=== PATIENT | male | born 1975 | race Caucasian/White ===

== ENCOUNTER 2016-06-06 10:58 | Inpatient (IN) | payer MEDICARE, OTHER ==
[~2016-06-06] VITALS: Ht 180.3 cm; Wt 78.0 kg
[~2016-06-06 10:58] MED LIST: ATIVAN2 MG/1 ML IM; CARBAMAZEPINE200 MG ORAL; FOLIC ACID1 MG ORAL; GABAPENTIN300 MG ORAL; GEODON40 MG ORAL; HYDROXYZINE HCL10 M1 PO; LEVETIRACETAM750 M1 ORAL; MORPHINE S10 MG/5 ML ORAL; MULTI VITAMIN1 EACH ORAL; NICODERM CQ1 EAC1 TD; QUETIAPINE FUM200 MG ORAL; TRAMADOL HCL50 MG ORAL; ZOLPIDEM TARTRAT5 MG ORAL
[2016-06-06] MEDS ORDERED: levETIRAcetam 500 MG in D5W 110 ML IV ONE (11:15)
[2016-06-06] MEDS ORDERED: levETIRAcetam 500mg vial IV ONE (12:06)
[2016-06-06] MEDS ORDERED: LORazepam Inj 2mg/ml 1ml ONE (12:09)
[2016-06-06 12:15] LABS: BASOPHILS % (AUTO) 1.3 % (0.0-2.0); EOSINOPHILS % (AUTO) 3.5 % (0.0-3.0); LYMPHOCYTES % (AUTO) 24.7 % (20.0-45.0); MEAN CORPUSCULAR HEMOGLOBIN 33.5 PG (27.0-31.0); MEAN CORPUSCULAR HGB CONC 34.3 G/DL (32.0-36.0); MEAN CORPUSCULAR VOLUME 98 FL (80-99); MEAN PLATELET VOLUME 8.3 FL (6.5-10.1); MONOCYTES % (AUTO) 6.3 % (1.0-10.0); NEUTROPHILS % (AUTO) 64.2 % (45.0-75.0); PLATELET COUNT 241 K/UL (150-450); RED BLOOD COUNT 4.72 M/UL (4.70-6.10); RED CELL DISTRIBUTION WIDTH 12.1 % (11.6-14.8)
[2016-06-06] MEDS ORDERED: LORazepam Inj 2mg/ml 1ml IV ONE (12:15)
[2016-06-06 12:25] LABS: ACETAMINOPHEN < 10 ug/mL (10-30); ALANINE AMINOTRANSFERASE 14 U/L (3-41); ALBUMIN/GLOBULIN RATIO 1.6 (1.0-2.7); ALCOHOL < 10 mg/dL; ANION GAP 14 (5-15); ASPARTATE AMINO TRANSFERASE 15 U/L (5-40); CALCIUM 9.1 mg/dL (8.6-10.2); CARBAMAZEPINE (TEGRETOL) 4.1 ug/mL (4.0-12.0); CARBON DIOXIDE 27 mEQ/L (20-30); CHLORIDE 100 mEQ/L (98-107); CREATININE 0.9 mg/dL (0.7-1.2); GLOMERULAR FILTRATION RATE > 60 mL/min (>60); HEMOLYSIS 13; POTASSIUM 4.1 mEQ/L (3.4-4.9); SODIUM 141 mEQ/L (135-145); TOTAL PROTEIN 6.7 g/dL (6.6-8.7); TROPONIN I < 0.30 ng/mL (<=0.30)
[2016-06-06 12:36] LABS: CKMB 1.6 ng/mL (< 6.7)
[2016-06-06 13:41] VITALS: BP 106/60
[2016-06-06] MEDS ORDERED: COLACE100 MG ORAL (13:56)
--- NOTE | 2016-06-06 13:59 | Diagnostic Imaging Report ---
Indications: Seizure, fall Technique: Continuous helical CT imaging of the brain was performed with automatic exposure control on a Siemens sensation [address] scanner. Axial and coronal images were reconstructed at 5 mm slice thickness and interval. CTDI volume(s): 70 mGy Total DLP: 1425 mGy-cm Findings: Comparison: None. Intracranial anatomy is unremarkable. No evidence of mass or hemorrhage, other attenuation abnormality, mass effect, midline shift, hydrocephalus or increased intracranial pressure. Bone window images are unremarkable. Mucoperiosteal thickening throughout paranasal sinuses. Remainder air cells opacified; left clear.. IMPRESSION: No evidence of acute injury or other acute intracranial pathology. Examination suboptimal for evaluation of first-time seizure. MRI of the brain without and with gadolinium, seizure protocol, recommended for more complete evaluation, as clinically indicated. Paranasal sinusitis. Right mastoid air cell opacification may be developmental and/or inflammatory The CT scanner at [facility] is accredited by the [employer] and the scans are performed using protocols designed to limit radiation exposure to as low as reasonably achievable to attain images of sufficient resolution adequate for diagnostic evaluation.
--- NOTE | 2016-06-06 14:32 | Emergency Room Report ---
History of Present Illness General Chief Complaint: Seizure Source: Patient, Medical Record, EMS Present Illness HPI 41-year-old male presents ED for evaluation. Per EMS patient has been having seizures at a convalescent home. Patient has history of seizures. Takes Keppra and carbamazepine. Patient states the medications are not helping. Patient states 2 days ago he fell because of the seizure and hit his knee. Complaining of right knee pain. dull, 7/10. Nonradiating. No other aggravating or relieving factors. Denies any other associated symptoms Allergies: Coded Allergies: DIVALPROEX SODIUM (Verified Allergy, Unknown, 04/13/16) Patient History Past Medical History: COPD, seizures Past Surgical History: none Pertinent Family History: none Social History: Denies: alcohol use, drug use, smoking Immunizations: UTD Reviewed Nursing Documentation: PMH: Agreed, PSxH: Agreed Nursing Documentation-PMH Past Medical History: No History, Except For Hx Cardiac Problems: No Hx COPD: Yes Hx Cancer: No Hx Gastrointestinal Problems: No Hx Neurological Problems: Yes Hx Seizures: Yes Hx Peripheral Neuropathy: Yes Hx Head Trauma: Yes Review of Systems All Other Systems: negative except mentioned in HPI Physical Exam Vital Signs Date Time Temp Pulse Resp B/P Pulse Ox O2 Delivery O2 Flow Rate FiO2 06/06/16 10:59 98.4 84 20 123/78 96 Room Air Sp02 EP Interpretation: reviewed, normal General Appearance: no apparent distress, alert, GCS 15, non-toxic Head: normocephalic, atraumatic Eyes: bilateral eye PERRL, bilateral eye normal inspection ENT: hearing grossly normal, normal pharynx, no angioedema, normal voice Neck: full range of motion, supple/symm/no masses Respiratory: chest non-tender, lungs clear, normal breath sounds, speaking full sentences Cardiovascular #1: regular rate, rhythm, no edema Cardiovascular #2: 2+ carotid (R), 2+ carotid (L), 2+ radial (R), 2+ radial (L) , 2+ dorsalis pedis (R), 2+ dorsalis pedis (L) Gastrointestinal: normal bowel sounds, non tender, soft, non-distended, no guarding, no rebound Rectal: deferred Genitourinary: normal inspection, no CVA tenderness Musculoskeletal: back normal, gait/station normal, normal range of motion, non- tender, tender - R knee Neurologic: alert, oriented x3, responsive, motor strength/tone normal, sensory intact, speech normal Psychiatric: judgement/insight normal, memory normal, mood/affect normal, no suicidal/homicidal ideation Reflexes: 3+ bicep (R), 3+ bicep (L), 3+ tricep (R), 3+ tricep (L), 3+ knee (R) , 3+ knee (L) Skin: normal color, no rash, warm/dry, well hydrated Lymphatic: no adenopathy Medical Decision Making Diagnostic Impression: Primary Impression: Epileptic seizure, generalized ER Course Hospital Course 41-year-old M presents to ED status post seizure. R knee pain s/p fall Differential diagnosis includes- breakthrough seizure, alcohol abuse, noncompliance with medication Clinical course Patient placed on stretcher. Initial history and physical I ordered labs, IV fluids, CT brain patient had another episode of seizure here. Given Ativan Right knee x-ray okay Labs-electrolytes okay, leukocytosis noted, hemoglobin/hematocrit stable. carbamezapine level normal CT Brain ok Given loading dose of Keppra. Case discussed with Dr. Frost and he agreed to accept the patient to his service for further care and support. i. I feel this is a highly complex case requiring extensive working including EKG/Rhythm strip, Xray/CT/US, Blood/urine lab work, repeat exams while in ED, and administration of strong opiates/narcotics for pain control, admission to hospital or close patient follow up. Diagnosis - seizure admitted to telemetry in serious condition Labs Test 06/06/16 12:00 White Blood Count 7.0 K/UL (4.8-10.8) Red Blood Count 4.72 M/UL (4.70-6.10) Hemoglobin 15.8 G/DL (14.2-18.0) Hematocrit 46.1 % (42.0-52.0) Mean Corpuscular Volume 98 FL (80-99) Mean Corpuscular Hemoglobin 33.5 PG (27.0-31.0) Mean Corpuscular Hemoglobin Concent 34.3 G/DL (32.0-36.0) Red Cell Distribution Width 12.1 % (11.6-14.8) Platelet Count 241 K/UL (150-450) Mean Platelet Volume 8.3 FL (6.5-10.1) Neutrophils (%) (Auto) 64.2 % (45.0-75.0) Lymphocytes (%) (Auto) 24.7 % (20.0-45.0) Monocytes (%) (Auto) 6.3 % (1.0-10.0) Eosinophils (%) (Auto) 3.5 % (0.0-3.0) Basophils (%) (Auto) 1.3 % (0.0-2.0) Sodium Level 141 mEQ/L (135-145) Potassium Level 4.1 mEQ/L (3.4-4.9) Chloride Level 100 mEQ/L (98-107) Carbon Dioxide Level 27 mEQ/L (20-30) Anion Gap 14 (5-15) Blood Urea Nitrogen 8 mg/dL (7-23) Creatinine 0.9 mg/dL (0.7-1.2) Estimat Glomerular Filtration Rate > 60 mL/min (>60) Glucose Level 92 mg/dL (74-106) Calcium Level 9.1 mg/dL (8.6-10.2) Total Bilirubin 0.2 mg/dL (0.0-1.2) Aspartate Amino Transf (AST/SGOT) 15 U/L (5-40) Alanine Aminotransferase (ALT/SGPT) 14 U/L (3-41) Alkaline Phosphatase 87 U/L (40-129) Total Creatine Kinase 72 U/L (38-174) Creatine Kinase MB 1.6 ng/mL (< 6.7) Creatine Kinase MB Relative Index 2.2 Troponin I < 0.30 ng/mL (<=0.30) Total Protein 6.7 g/dL (6.6-8.7) Albumin 4.2 g/dL (3.5-5.2) Globulin 2.5 g/dL Albumin/Globulin Ratio 1.6 (1.0-2.7) Salicylates Level < 1 mg/dL (10-30) Acetaminophen Level < 10 ug/mL (10-30) Carbamazepine (Tegretol) Level 4.1 ug/mL (4.0-12.0) Serum Alcohol < 10 mg/dL EKG Diagnostic Results Rate: normal Rhythm: NSR ST Segments: no acute changes ASA given to the pt in ED: No Rhythm Strip Diag. Results EP Interpretation: yes Rhythm: NSR, no PVC's, no ectopy Other X-Ray Diagnostic Results Other X-Ray Diagnostic Results : X-Ray Ordered: R knee EP Interpretation: Yes Findings: no fractures, no dislocation, no soft tissue swelling Number of Views: 3 CT/MRI/US Diagnostic Results CT/MRI/US Diagnostic Results : Imaging Test Ordered: CT head Impression no acute process Last Vital Signs Date Time Temp Pulse Resp B/P Pulse Ox O2 Delivery O2 Flow Rate FiO2 06/06/16 13:41 72 18 106/60 100 Room Air 06/06/16 10:59 98.4 Status: improved Disposition: ADMITTED INPATIENT Condition: Serious Referrals: JUAN FROST (PCP) MAGNOLIA DAO M.D. Jun 06, 2016 14:32
[2016-06-06] MEDS ORDERED: LAMICTAL100 MG ORAL (14:38)
--- NOTE | 2016-06-06 14:39 | Diagnostic Imaging Report ---
Indications: Fall, right knee injury, pain Technique: 3 views right knee. Findings: Comparison: None No fracture, dislocation, joint space widening or effusion , surrounding soft tissue swelling/foreign body/other abnormality, or other acute changes are identified. IMPRESSION: No evidence of acute injury to the right knee.
[2016-06-06] MEDS ORDERED: LEVETIRACETAM500 MG ORAL (15:09)
[2016-06-06] MEDS ORDERED: POLYETHYLENE GL17 GM ORAL (15:11)
[2016-06-06] MEDS ORDERED: MILK OF MA2400 MG/10 ORAL (15:11)
[2016-06-06] MEDS ORDERED: ACETAMINOP160 MG/55 ORAL (15:12)
[2016-06-06] MEDS ORDERED: VENTOLIN HFA18 GM INH (15:13)
--- NOTE | 2016-06-06 15:23 | Consultation ---
History of Present Illness General Date patient seen: Jun 06, 2016 Chief Complaint: Seizure Present Illness Allergies: Coded Allergies: DIVALPROEX SODIUM (Verified Allergy, Unknown, 04/13/16) Medication History Scheduled Carbamazepine* (Carbamazepine*), 300 MG ORAL EVERY 8 HOURS, (Reported) Docusate Sodium* (Colace*), 100 MG ORAL DAILY, (Reported) Folic Acid* (Folic Acid*), 1 MG ORAL DAILY, (Reported) Gabapentin* (Gabapentin*), 300 MG ORAL EVERY 8 HOURS, (Reported) Lamotrigine* (Lamictal*), 50 MG ORAL BID, (Reported) Levetiracetam (Levetiracetam), 750 MG ORAL BID, (Reported) Levetiracetam* (Levetiracetam*), 1,500 MG ORAL TWICE A DAY, (Reported) Lorazepam* (Ativan*), 1 MG IM Q6HR, (Reported) Multivitamin (Multi Vitamin Daily), 1 TAB ORAL DAILY, (Reported) Nicotine 14MG Patch* (Nicoderm Cq 14MG*), 1 EACH TD DAILY, (Reported) Quetiapine Fumarate* (Seroquel*), 200 MG ORAL EVERY 8 HOURS, (Reported) Ziprasidone Hcl* (Geodon*), 80 MG ORAL TWICE A DAY, (Reported) Scheduled PRN Acetaminophen* (Acetaminophen*), 27 MG ORAL Q4HR PRN for For Pain, (Reported) Albuterol Sulfate (Ventolin Hfa), 2 PUFFS INH EVERY 6 HOURS PRN for Shortness of Breath, (Reported) Hydroxyzine Hcl (Hydroxyzine Hcl), 10 MG PO EVERY 8 HOURS PRN for Itching, ( Reported) Magnesium Hydroxide* (Milk Of Magnesia*), 30 ML ORAL DAILY PRN for Constipation, (Reported) Morphine Sulfate* (Morphine Sulfate*), 15 MG ORAL EVERY 12 HOURS PRN for For Pain, (Reported) Polyethylene Glycol 3350* (Polyethylene Glycol 3350*), 17 GM ORAL BEDTIME PRN for Constipation, (Reported) Tramadol Hcl* (Ultram*), 50 MG ORAL Q6H PRN for For Pain, (Reported) Zolpidem Tartrate* (Zolpidem Tartrate*), 5 MG ORAL BEDTIME PRN for Insomnia, ( Reported) Patient History Healthcare decision maker Resuscitation status Advanced Directive on File Physical Exam Last 24 Hour Vital Signs Date Time Temp Pulse Resp B/P Pulse Ox O2 Delivery O2 Flow Rate FiO2 06/06/16 13:41 72 18 106/60 100 Room Air 06/06/16 11:30 84 20 Room Air 06/06/16 10:59 98.4 84 20 123/78 96 Room Air Laboratory Tests Test 06/06/16 12:00 White Blood Count 7.0 K/UL (4.8-10.8) Red Blood Count 4.72 M/UL (4.70-6.10) Hemoglobin 15.8 G/DL (14.2-18.0) Hematocrit 46.1 % (42.0-52.0) Mean Corpuscular Volume 98 FL (80-99) Mean Corpuscular Hemoglobin 33.5 PG (27.0-31.0) H Mean Corpuscular Hemoglobin Concent 34.3 G/DL (32.0-36.0) Red Cell Distribution Width 12.1 % (11.6-14.8) Platelet Count 241 K/UL (150-450) Mean Platelet Volume 8.3 FL (6.5-10.1) Neutrophils (%) (Auto) 64.2 % (45.0-75.0) Lymphocytes (%) (Auto) 24.7 % (20.0-45.0) Monocytes (%) (Auto) 6.3 % (1.0-10.0) Eosinophils (%) (Auto) 3.5 % (0.0-3.0) H Basophils (%) (Auto) 1.3 % (0.0-2.0) Sodium Level 141 mEQ/L (135-145) Potassium Level 4.1 mEQ/L (3.4-4.9) Chloride Level 100 mEQ/L (98-107) Carbon Dioxide Level 27 mEQ/L (20-30) Anion Gap 14 (5-15) Blood Urea Nitrogen 8 mg/dL (7-23) Creatinine 0.9 mg/dL (0.7-1.2) Estimat Glomerular Filtration Rate > 60 mL/min (>60) Glucose Level 92 mg/dL (74-106) Calcium Level 9.1 mg/dL (8.6-10.2) Total Bilirubin 0.2 mg/dL (0.0-1.2) Aspartate Amino Transf (AST/SGOT) 15 U/L (5-40) Alanine Aminotransferase (ALT/SGPT) 14 U/L (3-41) Alkaline Phosphatase 87 U/L (40-129) Total Creatine Kinase 72 U/L (38-174) Creatine Kinase MB 1.6 ng/mL (< 6.7) Creatine Kinase MB Relative Index 2.2 Troponin I < 0.30 ng/mL (<=0.30) Total Protein 6.7 g/dL (6.6-8.7) Albumin 4.2 g/dL (3.5-5.2) Globulin 2.5 g/dL Albumin/Globulin Ratio 1.6 (1.0-2.7) Salicylates Level < 1 mg/dL (10-30) L Acetaminophen Level < 10 ug/mL (10-30) L Carbamazepine (Tegretol) Level 4.1 ug/mL (4.0-12.0) Serum Alcohol < 10 mg/dL Height (Feet): 5 Height (Inches): 11.00 Weight (Pounds): 172 Assessment/Plan Assessment/Plan (1) Paraplegia (2) Epilepsy (3) Neuropathic pain (4) Chronic pain syndrome (5) PTSD (6) Schizophrenia (7) Right knee sprain and pain Seen dictated EMMA AGUILAR Jun 06, 2016 15:23
[2016-06-06] MEDS ORDERED: Morphine IR 15mg tab ORAL PRN (15:30)
[2016-06-06] MEDS ORDERED: HYDROmorphone 1mg/ml Carpuject IVP PRN (15:30)
[2016-06-06 15:38] VITALS: BP 107/33
[2016-06-06 17:44] VITALS: BP 127/65
[2016-06-06 20:00] VITALS: BP 151/84
[2016-06-06] MEDS: MS Contin 15mg tab ORAL SCH (21:52)
[2016-06-06] MEDS ORDERED: Miralax 17gm pkt ORAL PRN (23:00)
[2016-06-06] MEDS ORDERED: traMADol 50mg tab ORAL PRN (23:00)
[2016-06-06] MEDS ORDERED: Zolpidem 5mg tab ORAL PRN (23:00)
[2016-06-06] MEDS ORDERED: Morphine Sulfate 2mg/ml Inj IVP PRN (23:00)
[2016-06-06] MEDS ORDERED: Mylanta II UD 30ml ORAL PRN (23:00)
[2016-06-06] MEDS: LORazepam Inj 2mg/ml 1ml IV PRN (23:10)
--- NOTE | 2016-06-06 23:48 | Consultation ---
History of Present Illness General Date patient seen: Jun 06, 2016 Chief Complaint: Cough and shortness of breath intractable seizure Reason for Consultation: Dr Gavin Present Illness HPI 41 yo gentleman with pmhx seizure disorder and chronic obstructive pulmonary disease, alcoholism, tobacco smoke use presents to [facility] ER with complaint of intractable seizure. Upon examination the patients breathing is labored and there is a noticeable wheeze appreciated without need of a stethoscope. Patient is lethargic and disoriented, the history obtained from emergency room doctor and the patients' hospitalist. While being evaluated for intractable seizure apparently the patient exhibited symptoms and signs of breathing difficulty and profouse coughing. I was asked to consult on this case and evaluate the patients lung function in the context of prior existing lung disease and respiratory related symptoms of cough and breathing abnormalities. Preliminary chest x ray is negative for acute infiltrate or effusion, consolidation may not be appreciated in a hypovolemic status. Supplemental oxygen, aspiration precautions and breathing treatments will be provided to improve respiratory status. Neurologist has been requested to provide stronger anti-convulsant therapy Patient is admitted to hospital for close evaluation, therapeutic blood levels of anti-convulsant is being examined at this time. Will obtain a follow up chest xray if respiratory status declines further, will reassess breathing and lung function daily. Allergies: Coded Allergies: DIVALPROEX SODIUM (Verified Allergy, Unknown, 04/13/16) Medication History Scheduled Carbamazepine* (Carbamazepine*), 300 MG ORAL EVERY 8 HOURS, (Reported) Docusate Sodium* (Colace*), 100 MG ORAL DAILY, (Reported) Folic Acid* (Folic Acid*), 1 MG ORAL DAILY, (Reported) Gabapentin* (Gabapentin*), 300 MG ORAL EVERY 8 HOURS, (Reported) Lamotrigine* (Lamictal*), 50 MG ORAL BID, (Reported) Levetiracetam (Levetiracetam), 750 MG ORAL BID, (Reported) Levetiracetam* (Levetiracetam*), 1,500 MG ORAL TWICE A DAY, (Reported) Lorazepam* (Ativan*), 1 MG IM Q6HR, (Reported) Multivitamin (Multi Vitamin Daily), 1 TAB ORAL DAILY, (Reported) Nicotine 14MG Patch* (Nicoderm Cq 14MG*), 1 EACH TD DAILY, (Reported) Quetiapine Fumarate* (Seroquel*), 200 MG ORAL EVERY 8 HOURS, (Reported) Ziprasidone Hcl* (Geodon*), 80 MG ORAL TWICE A DAY, (Reported) Scheduled PRN Acetaminophen* (Acetaminophen*), 27 MG ORAL Q4HR PRN for For Pain, (Reported) Albuterol Sulfate (Ventolin Hfa), 2 PUFFS INH EVERY 6 HOURS PRN for Shortness of Breath, (Reported) Hydroxyzine Hcl (Hydroxyzine Hcl), 10 MG PO EVERY 8 HOURS PRN for Itching, ( Reported) Magnesium Hydroxide* (Milk Of Magnesia*), 30 ML ORAL DAILY PRN for Constipation, (Reported) Morphine Sulfate* (Morphine Sulfate*), 15 MG ORAL EVERY 12 HOURS PRN for For Pain, (Reported) Polyethylene Glycol 3350* (Polyethylene Glycol 3350*), 17 GM ORAL BEDTIME PRN for Constipation, (Reported) Tramadol Hcl* (Ultram*), 50 MG ORAL Q6H PRN for For Pain, (Reported) Zolpidem Tartrate* (Zolpidem Tartrate*), 5 MG ORAL BEDTIME PRN for Insomnia, ( Reported) Patient History Healthcare decision maker Resuscitation status Advanced Directive on File Past Medical/Surgical History Past Medical/Surgical History: (1) Choreoathetosis (2) posttraumatc seizure disorder, exacerbation (3) Aspiration pneumonia (4) Hypoxia (5) ETOH abuse (6) Epilepsia (7) SOB (shortness of breath) (8) HTN (hypertension) (9) Chronic pain (10) Recurrent knee pain (11) Uncontrolled seizures (12) chronic pain syndrom with drug seeking behavior (13) 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 (15) Psychiatric disorder (16) COPD (chronic obstructive pulmonary disease) (17) Tachycardia Review of Systems Constitutional: Reports: malaise, weakness Respiratory: Reports: cough, shortness of breath, wheezing Neurological: Reports: headache, seizure, tingling, tremors Physical Exam General Appearance: moderate distress Lines, tubes and drains: peripheral HEENT: normocephalic, atraumatic, anicteric, PERRL Neck: non-tender, normal alignment, supple Respiratory/Chest: chest wall non-tender, respiratory distress, accessory muscle use, expiratory wheezing Breasts: no masses Cardiovascular/Chest: normal peripheral pulses, normal rate, no JVD Abdomen: normal bowel sounds, non tender, soft, no organomegaly, no mass Genitourinary/Rectal: normal genital exam, normal rectal exam Extremities: normal range of motion, non-tender, normal inspection Skin Exam: normal pigmentation, warm/dry Neurologic: cook barbecue II-XII grossly normal, no motor/sensory deficits, responsive, disoriented Last 24 Hour Vital Signs Date Time Temp Pulse Resp B/P Pulse Ox O2 Delivery O2 Flow Rate FiO2 06/06/16 20:00 97.5 102 15 151/84 100 Room Air 06/06/16 20:00 82 06/06/16 18:26 97.6 72 15 127/65 95 Room Air 1.0 06/06/16 17:44 97.6 72 15 127/65 95 Room Air 06/06/16 15:38 97.1 89 20 107/33 100 Nasal Cannula 1.0 06/06/16 13:41 72 18 106/60 100 Room Air 06/06/16 11:30 84 20 Room Air 06/06/16 10:59 98.4 84 20 123/78 96 Room Air Laboratory Tests Test 06/06/16 12:00 White Blood Count 7.0 K/UL (4.8-10.8) Red Blood Count 4.72 M/UL (4.70-6.10) Hemoglobin 15.8 G/DL (14.2-18.0) Hematocrit 46.1 % (42.0-52.0) Mean Corpuscular Volume 98 FL (80-99) Mean Corpuscular Hemoglobin 33.5 PG (27.0-31.0) H Mean Corpuscular Hemoglobin Concent 34.3 G/DL (32.0-36.0) Red Cell Distribution Width 12.1 % (11.6-14.8) Platelet Count 241 K/UL (150-450) Mean Platelet Volume 8.3 FL (6.5-10.1) Neutrophils (%) (Auto) 64.2 % (45.0-75.0) Lymphocytes (%) (Auto) 24.7 % (20.0-45.0) Monocytes (%) (Auto) 6.3 % (1.0-10.0) Eosinophils (%) (Auto) 3.5 % (0.0-3.0) H Basophils (%) (Auto) 1.3 % (0.0-2.0) Sodium Level 141 mEQ/L (135-145) Potassium Level 4.1 mEQ/L (3.4-4.9) Chloride Level 100 mEQ/L (98-107) Carbon Dioxide Level 27 mEQ/L (20-30) Anion Gap 14 (5-15) Blood Urea Nitrogen 8 mg/dL (7-23) Creatinine 0.9 mg/dL (0.7-1.2) Estimat Glomerular Filtration Rate > 60 mL/min (>60) Glucose Level 92 mg/dL (74-106) Calcium Level 9.1 mg/dL (8.6-10.2) Total Bilirubin 0.2 mg/dL (0.0-1.2) Aspartate Amino Transf (AST/SGOT) 15 U/L (5-40) Alanine Aminotransferase (ALT/SGPT) 14 U/L (3-41) Alkaline Phosphatase 87 U/L (40-129) Total Creatine Kinase 72 U/L (38-174) Creatine Kinase MB 1.6 ng/mL (< 6.7) Creatine Kinase MB Relative Index 2.2 Troponin I < 0.30 ng/mL (<=0.30) Total Protein 6.7 g/dL (6.6-8.7) Albumin 4.2 g/dL (3.5-5.2) Globulin 2.5 g/dL Albumin/Globulin Ratio 1.6 (1.0-2.7) Salicylates Level < 1 mg/dL (10-30) L Acetaminophen Level < 10 ug/mL (10-30) L Carbamazepine (Tegretol) Level 4.1 ug/mL (4.0-12.0) Serum Alcohol < 10 mg/dL Height (Feet): 5 Height (Inches): 11.00 Weight (Pounds): 172 Medications Current Medications Medications (Trade) Dose Ordered Sig/Sharon Route PRN Reason Start Time Stop Time Status Last Admin Dose Admin Acetaminophen (Tylenol) 650 mg Q4H PRN ORAL fever 06/06/16 23:00 07/06/16 22:59 Al Hydroxide/Mg Hydroxide (Mylanta II) 30 ml Q6H PRN ORAL dyspepsia 06/06/16 23:00 07/06/16 22:59 Carbamazepine (TEGretol) 300 mg EVERY 8 HOURS ORAL 06/07/16 06:00 07/07/16 05:59 Dextrose (Dextrose 50%) STAT PRN IV Hypoglycemia 06/06/16 23:00 07/06/16 22:59 Folic Acid (Folate) 1 mg DAILY ORAL 06/07/16 09:00 07/07/16 08:59 Gabapentin (Neurontin) 300 mg EVERY 8 HOURS ORAL 06/07/16 06:00 07/07/16 05:59 Heparin Sodium (Porcine) (Heparin 5000 units/ml) 5,000 units EVERY 12 HOURS SUBQ 06/07/16 09:00 07/07/16 08:59 Hydromorphone HCl (Dilaudid) 1 mg Q4H PRN IVP severe pain 06/06/16 15:30 06/13/16 15:29 Lamotrigine (LaMICtal) 50 mg BID ORAL 06/07/16 09:00 07/07/16 08:59 Levetiracetam (Keppra) 1,500 mg TWICE A DAY ORAL 06/07/16 09:00 07/07/16 08:59 Lidocaine (Lidoderm 5% PATCH) 1 patch DAILY TDERMAL 06/07/16 09:00 07/07/16 08:59 Lorazepam (Ativan 2mg/ml 1ml) 2 mg EVERY HOUR PRN IV seizures 06/06/16 23:00 06/13/16 22:59 06/06/16 23:10 Morphine HCl (Morphine IR) 15 mg Q4H PRN ORAL moderate pain 06/06/16 15:30 06/13/16 15:29 Morphine Sulfate (MS Contin) 15 mg Q12HR ORAL 06/06/16 21:00 06/13/16 20:59 06/06/16 21:52 Morphine Sulfate (Morphine Sulfate) 1 mg EVERY 4 HOURS PRN IVP For Pain 06/06/16 23:00 06/13/16 22:59 Ondansetron HCl (Zofran) 4 mg Q6H PRN IVP Nausea & Vomiting 06/06/16 23:00 07/06/16 22:59 Polyethylene Glycol (Miralax) 17 gm HSPRN PRN ORAL Constipation 06/06/16 23:00 07/06/16 22:59 Quetiapine Fumarate (SEROquel) 200 mg EVERY 8 HOURS ORAL 06/07/16 06:00 07/07/16 05:59 Tramadol HCl (Ultram) 50 mg Q6H PRN ORAL For Pain 06/06/16 23:00 06/13/16 22:59 Zolpidem Tartrate (Ambien) 5 mg HSPRN PRN ORAL Insomnia 06/06/16 23:00 07/06/16 22:59 Assessment/Plan Problem List: (1) ETOH abuse ICD Codes: F10.10 - Alcohol abuse, uncomplicated SNOMED: 43735056, 49300966 (2) Epilepsia ICD Codes: G40.909 - Epilepsy, unspecified, not intractable, without status epilepticus SNOMED: 92976936 (3) Epileptic seizure, generalized ICD Codes: G40.309 - Generalized idiopathic epilepsy and epileptic syndromes, not intractable, without status epilepticus SNOMED: 60285324 (4) Hypoxia ICD Codes: R09.02 - Hypoxemia SNOMED: 475594016, 66242620 Status: stable, progressing Assessment/Plan Supplemental Oxygen high flow Maintain pulse oximetry oxygenation above 92 percent Aspiration precautions Breathing Tx albuterol / atrovent UD as needed for SOB q 6 hours. CXR repeated if lung status doesn't improve. Will monitor CBC and BMP, initiate antbx if sputum increases. JJ YUNG Jun 06, 2016 23:48
--- NOTE | 2016-06-06 23:57 | History and Physical Report ---
DATE OF ADMISSION: 06/06/2016 TIME SEEN: 2 p.m. INSTRUMENT MAINTENANCE SUPERVISOR: 1. Patricio Strong M.D. 2. Carolina Dye M.D. 3. Ghassan Espinoza M.D. 4. Dr. Cervantes. 5. Dr. Fleming. CHIEF COMPLAINT: Recurrent seizure and chronic pain. BRIEF HISTORY: The patient is a 41-year-old male from [facility], presents to [place] ER with history of recurrent seizure and also right knee pain severe, history of encephalopathy, currently calm, sleeping in bed, in ER, no complaints. PAST MEDICAL HISTORY: Seizure, chronic pain, encephalopathy, right knee pain, hypertension. PAST SURGICAL HISTORY: Right knee. MEDICATIONS: Ativan, Keppra, and levetiracetam. ALLERGIES: Depakote. SOCIAL HISTORY: Positive smoking. No alcohol. No intravenous drug abuse. FAMILY HISTORY: Noncontributory. REVIEW OF SYSTEMS: No chest pain/shortness of breath. No nausea, vomiting, or diarrhea. PHYSICAL EXAMINATION: GENERAL: Calm in bed. Oriented x3, no acute distress. VITAL SIGNS: Temperature 98 degrees, pulse 82, respirations 18, and blood pressure 106/60. CARDIOVASCULAR: No murmur. LUNGS: Clear. ABDOMEN: Bowel sounds positive. Nontender and nondistended. EXTREMITIES: No cyanosis, clubbing, or edema NEUROLOGIC: The patient moves all extremities, slightly weak. LABORATORY AND DIAGNOSTIC DATA: CBC is normal. BMP is normal. Toxicology, salicylate less than 1, Tylenol less than 10. ASSESSMENT: 1. Seizure, recurrent. 2. Chronic pain. 3. Shortness of breath. 4. Encephalopathy. 5. Right knee pain. 6. Hypertension. PLAN: 1. Continue premedications. 2. Seizure, blood pressure and pain control. 3. Dietary followup. 4. OT, PT, and dietary evaluation. 5. CBC and BMP in the morning. 6. Dr. Strong, Dr. Marnie M.D., Dr. Espinoza, Dr. Cervantes, and Dr. Fleming to consult. Curtis Gavin D.O. DR: Aramis JOB#: [id number] CC:
[2016-06-07] VITALS (8 sets, daily range): BP systolic 106–136; BP diastolic 56–83
--- NOTE | 2016-06-07 00:37 | Consultation ---
DATE OF CONSULTATION: 06/06/2016 PAIN MANAGEMENT CONSULTATION: CONSULTING PHYSICIAN: Carolina Dye M.D. REFERRING PHYSICIAN: Curtis Gavin D.O. CHIEF COMPLAINT: Bilateral lower extremity pain. HISTORY OF PRESENT ILLNESS: This is a 41-year-old male, who is being seen in the ER of [facility] for comprehensive pain management consultation. The patient has been seen by us in the past in the office complaining of bilateral lower extremity pain for the past five years. It is a constant, chronic, rating it an 8/10, describing as sharp aching pain and increases with movement with history of epilepsy and recently had a seizure at the skilled nursing and is on Keppra and carbamazepine. At this time, he was admitted into the hospital under the care of Dr. Gavin. As an outpatient, the patient was on morphine extended release 15 mg tablet every 8 hours and morphine immediate release every six hours as needed for severe pain. However, in the fall, the patient had a fall hitting his right knee, was complaining of increased pain. X-ray was done showing no abnormalities as per the ER doctor. At this time, the patient will be admitted under the care of Dr. Gavin. We were consulted, so that the patient would have adequate pain control while here in the hospital. PAST MEDICAL HISTORY: COPD, seizure disorder, and neuropathy. PAST SURGICAL HISTORY: Meniscus repair. MEDICATIONS: Carbamazepine, Colace, folic acid, Neurontin, levetiracetam, Ativan, nicotine, Seroquel morphine extended release, and morphine. ALLERGIES: Divalproex sodium. SOCIAL HISTORY: Denies smoking tobacco, drinking alcohol, or IV drug abuse. REVIEW OF SYSTEMS: Denies rash, fever, chills, sweating, dizziness, drowsiness, blurred vision, sore throat, or change in weight. No shortness of breath or chest pain. No nausea, vomiting, diarrhea, or blood in the stool or urine. No bowel or bladder incontinence. No dysuria. He is complaining of bilateral lower extremity. PHYSICAL EXAMINATION: GENERAL: Alert, awake, and oriented. VITAL SIGNS: Blood pressure 106/60, heart rate 72, oxygen saturation is 100%, respirations 18, and temperature 98.4 degrees Fahrenheit. Height is 5 feet 11 inches over pounds HEENT: PERRLA. NECK: Range of motion is full in all directions. No tenderness to paracervical muscles. No adenopathy. LUNGS: Decreased breath sounds bilaterally. HEART: S1 and S2, regular. ABDOMEN: Benign. BACK: Range of motion is decreased in flexion and extension with tenderness to paraspinous and trapezius muscles. EXTREMITIES: No cyanosis, no clubbing with tenderness to palpation of the right knee. NEUROLOGIC: Focal deficit, weakness on bilateral lower extremities. ASSESSMENT AND PLAN: This is a 41-year-old male with epilepsy, neuropathic pain, chronic pain syndrome plus right knee sprain and pain. The patient will be started on morphine extended release 15 mg tablet every 12 hours [id number] , morphine immediate release 15 mg tablet every 4 hours needed for moderate pain and Dilaudid 1 mg IV every as needed for severe pain. will be applied to the right knee, 12 hours on 12 hours off. The patient was discussed with Dr. Dye and Dr. Dye concurred. We will follow the patient. Thank you very much for the courtesy of this consultation. Carolina Dye M.D. KATHY Dickens DR: Ulises JOB#: [id number] CC:
--- NOTE | 2016-06-07 01:57 | Consultation ---
DATE OF CONSULTATION: 06/06/2016 CHIEF COMPLAINT: The patient is a pleasant 41-year-old gentleman, who was brought from convalescent home for possible seizure evaluation. The patient stated he has had a chronic history of right knee pain. He was diagnosed with right knee medial meniscus tear for which he underwent surgery for approximately 10 years ago. Since then, he has had multiple braces. He is having pain in the right knee. He does not report any new or specific trauma as a result of the seizure. PAST MEDICAL HISTORY: Significant for chronic obstructive pulmonary disease and seizure disorder. PAST SURGICAL HISTORY: Right knee arthroscopic meniscectomy. MEDICATIONS: Reviewed from the intake chart. SOCIAL HISTORY: The patient resides in a convalescent home. He does smoke. He does drink. PHYSICAL EXAMINATION: GENERAL: The patient is alert and oriented. He is resting comfortably. He is alert but does appear little agitated. EXTREMITIES: Right leg examination shows incision to be dry and intact. Minimal swelling in the right lower extremity. Some pain along the popliteal fossa as well as right thigh. There is some pain along the medial joint line. Christopher test is difficult to assess. IMAGING STUDIES: Four views of the right knee reviewed showed no obvious fracture or dislocation. No soft tissue abnormalities. ASSESSMENT: 1. Status post right knee arthroscopic medial meniscectomy. 2. Right knee post meniscectomy mild medial compartment arthritis. DISCUSSION: At this point, in terms of his knee, he does not have any acute knee injury. He has multiple braces at the bedside and we would recommend a hinge brace. I wrote for physical therapy to ambulate and weightbearing as tolerated. He needs appropriate pain medication given the history of chronic pain use. If he has continued issues, I would recommend getting an MRI as outpatient, but clearly he is not a candidate for any type of surgical intervention at this point for a recurrent meniscus tear given his recent medical issues. Sandor Fleming M.D. DR: LIDIA JOB#: [id number] CC: John Rae
[2016-06-07] MEDS: QUEtiapine 200mg tab ORAL SCH ×4 (06:00→20:11)
[2016-06-07] MEDS: carBAMazepine 200mg tab ORAL SCH ×3 (06:33→20:11)
--- NOTE | 2016-06-07 08:05 | Pulmonology Progress Note ---
Assessment/Plan Assessment/Plan ASSESSMENT chronic seizure disorder with breakthrough episode s/p fall R knee pain Status post right knee arthroscopic medial meniscectomy COPD PLAN OF CARE CT head negative seizure precautions, continue Keppra and Tegretol ( level ok) loaded with Keppra in ER Ativan prn ? neuro eval - per PMD discretion recommend EEG gentle IVF ortho eval noted ( hx of R knee surgery) X ray R knee - no evidence of fracture, STS or desolation as per ortho - no acute knee injury ortho recommended hinge brace WBAT PT/OT pain management pain specialist follows O2 HH prn CXR no evidence of COPD exacerbation , stable sat on RA transfer to MS floor case discussed and evaluated by supervising physician Subjective Allergies: Coded Allergies: DIVALPROEX SODIUM (Verified Allergy, Unknown, 04/13/16) Subjective no chest pain, no SOB on RA sat stable, no signs of respiratory distress seen by ortho, no acute ortho issues Objective Last 24 Hour Vital Signs Date Time Temp Pulse Resp B/P Pulse Ox O2 Delivery O2 Flow Rate FiO2 06/07/16 04:17 98.7 74 19 108/58 98 Nasal Cannula 2.0 06/07/16 04:00 73 06/07/16 00:38 98.1 83 20 110/57 96 Nasal Cannula 2.0 06/07/16 00:00 84 06/06/16 20:00 97.5 102 15 151/84 100 Room Air 06/06/16 20:00 82 06/06/16 18:26 97.6 72 15 127/65 95 Room Air 1.0 06/06/16 17:44 97.6 72 15 127/65 95 Room Air 06/06/16 15:38 97.1 89 20 107/33 100 Nasal Cannula 1.0 06/06/16 13:41 72 18 106/60 100 Room Air 06/06/16 11:30 84 20 Room Air 06/06/16 10:59 98.4 84 20 123/78 96 Room Air Intake and Output 06/06/16 06/07/16 19:00 07:00 Intake Total 0 ml Balance 0 ml Intake Oral 0 ml # Voids 3 General Appearance: WD/WN, no acute distress HEENT: normocephalic, atraumatic, anicteric, mucous membranes moist, PERRL Respiratory/Chest: chest wall non-tender, lungs clear - with moderate air entry , no respiratory distress, no accessory muscle use Cardiovascular: normal rate, regular rhythm - SR on tele Abdomen: normal bowel sounds, soft, non tender, non distended Genitourinary: normal external genitalia Extremities: no edema, pedal pulses normal Neurologic/Psychiatric: abnormal gait - w/chair bound , alert, oriented x 3, responsive Musculoskeletal: normal muscle bulk, atrophy - R knee degenerative changes , no edema, no tenderness Laboratory Tests 06/06/16 12:00: White Blood Count 7.0, Red Blood Count 4.72, Hemoglobin 15.8, Hematocrit 46.1, Mean Corpuscular Volume 98, Mean Corpuscular Hemoglobin 33.5H, Mean Corpuscular Hemoglobin Concent 34.3, Red Cell Distribution Width 12.1, Platelet Count 241, Mean Platelet Volume 8.3, Neutrophils (%) (Auto) 64.2, Lymphocytes (%) (Auto) 24.7, Monocytes (%) (Auto) 6.3, Eosinophils (%) (Auto) 3.5H, Basophils (%) (Auto ) 1.3, Sodium Level 141, Potassium Level 4.1, Chloride Level 100, Carbon Dioxide Level 27, Anion Gap 14, Blood Urea Nitrogen 8, Creatinine 0.9, Estimat Glomerular Filtration Rate > 60, Glucose Level 92, Calcium Level 9.1, Total Bilirubin 0.2, Aspartate Amino Transf (AST/SGOT) 15, Alanine Aminotransferase ( ALT/SGPT) 14, Alkaline Phosphatase 87, Total Creatine Kinase 72, Creatine Kinase MB 1.6, Creatine Kinase MB Relative Index 2.2, Troponin I < 0.30, Total Protein 6.7, Albumin 4.2, Globulin 2.5, Albumin/Globulin Ratio 1.6, Salicylates Level < 1L, Acetaminophen Level < 10L, Carbamazepine (Tegretol) Level 4.1, Serum Alcohol < 10 06/07/16 07:10: White Blood Count [Pending], Red Blood Count [Pending], Hemoglobin [Pending], Hematocrit [Pending], Mean Corpuscular Volume [Pending], Mean Corpuscular Hemoglobin [Pending], Mean Corpuscular Hemoglobin Concent [Pending], Red Cell Distribution Width [Pending], Platelet Count [Pending], Mean Platelet Volume [ Pending], Neutrophils (%) (Auto) [Pending], Lymphocytes (%) (Auto) [Pending], Monocytes (%) (Auto) [Pending], Eosinophils (%) (Auto) [Pending], Basophils (%) (Auto) [Pending], Sodium Level [Pending], Potassium Level [Pending], Chloride Level [Pending], Carbon Dioxide Level [Pending], Blood Urea Nitrogen [Pending], Creatinine [Pending], Estimat Glomerular Filtration Rate [Pending], Glucose Level [Pending], Calcium Level [Pending], Total Bilirubin [Pending], Aspartate Amino Transf (AST/SGOT) [Pending], Alanine Aminotransferase (ALT/SGPT) [Pending] , Alkaline Phosphatase [Pending], Total Protein [Pending], Albumin [Pending], Globulin [Pending] Current Medications Medications (Trade) Dose Ordered Sig/Sharon Route PRN Reason Start Time Stop Time Status Last Admin Dose Admin Acetaminophen (Tylenol) 650 mg Q4H PRN ORAL fever 06/06/16 23:00 07/06/16 22:59 Al Hydroxide/Mg Hydroxide (Mylanta II) 30 ml Q6H PRN ORAL dyspepsia 06/06/16 23:00 07/06/16 22:59 Carbamazepine (TEGretol) 300 mg EVERY 8 HOURS ORAL 06/07/16 06:00 07/07/16 05:59 06/07/16 06:33 Dextrose (Dextrose 50%) STAT PRN IV Hypoglycemia 06/06/16 23:00 07/06/16 22:59 Folic Acid (Folate) 1 mg DAILY ORAL 06/07/16 09:00 07/07/16 08:59 Gabapentin (Neurontin) 300 mg EVERY 8 HOURS ORAL 06/07/16 06:00 07/07/16 05:59 06/07/16 06:33 Heparin Sodium (Porcine) (Heparin 5000 units/ml) 5,000 units EVERY 12 HOURS SUBQ 06/07/16 09:00 07/07/16 08:59 Hydromorphone HCl (Dilaudid) 1 mg Q4H PRN IVP severe pain 06/06/16 15:30 06/13/16 15:29 Lamotrigine (LaMICtal) 50 mg BID ORAL 06/07/16 09:00 07/07/16 08:59 Levetiracetam (Keppra) 1,500 mg TWICE A DAY ORAL 06/07/16 09:00 07/07/16 08:59 Lidocaine (Lidoderm 5% PATCH) 1 patch DAILY TDERMAL 06/07/16 09:00 07/07/16 08:59 Lorazepam (Ativan 2mg/ml 1ml) 2 mg EVERY HOUR PRN IV seizures 06/06/16 23:00 06/13/16 22:59 06/06/16 23:10 Morphine HCl (Morphine IR) 15 mg Q4H PRN ORAL moderate pain 06/06/16 15:30 06/13/16 15:29 Morphine Sulfate (MS Contin) 15 mg Q12HR ORAL 06/06/16 21:00 06/13/16 20:59 06/06/16 21:52 Morphine Sulfate (Morphine Sulfate) 1 mg EVERY 4 HOURS PRN IVP For Pain 06/06/16 23:00 06/13/16 22:59 06/07/16 04:22 Ondansetron HCl (Zofran) 4 mg Q6H PRN IVP Nausea & Vomiting 06/06/16 23:00 07/06/16 22:59 Polyethylene Glycol (Miralax) 17 gm HSPRN PRN ORAL Constipation 06/06/16 23:00 07/06/16 22:59 Quetiapine Fumarate (SEROquel) 200 mg EVERY 8 HOURS ORAL 06/07/16 06:00 07/07/16 05:59 Tramadol HCl (Ultram) 50 mg Q6H PRN ORAL For Pain 06/06/16 23:00 06/13/16 22:59 Zolpidem Tartrate (Ambien) 5 mg HSPRN PRN ORAL Insomnia 06/06/16 23:00 07/06/16 22:59 Edgar (Ana Gracia NP Jun 07, 2016 08:05
[2016-06-07] MEDS ORDERED: DuoNeb 0.5-3(2.5)mg/3ml neb HHN PRN ×2 (08:15→20:15)
[2016-06-07 08:30] LABS: ALANINE AMINOTRANSFERASE 13 U/L (3-41); ALBUMIN/GLOBULIN RATIO 1.8 (1.0-2.7); ANION GAP 15 (5-15); ASPARTATE AMINO TRANSFERASE 14 U/L (5-40); CALCIUM 9.3 mg/dL (8.6-10.2); CARBON DIOXIDE 25 mEQ/L (20-30); CHLORIDE 101 mEQ/L (98-107); CREATININE 0.9 mg/dL (0.7-1.2); GLOMERULAR FILTRATION RATE > 60 mL/min (>60); HEMOLYSIS 6; POTASSIUM 4.1 mEQ/L (3.4-4.9); SODIUM 141 mEQ/L (135-145); TOTAL PROTEIN 6.8 g/dL (6.6-8.7)
[2016-06-07 08:47] LABS: BASOPHILS % (AUTO) 0.9 % (0.0-2.0); EOSINOPHILS % (AUTO) 2.4 % (0.0-3.0); LYMPHOCYTES % (AUTO) 18.4 % (20.0-45.0); MEAN CORPUSCULAR HEMOGLOBIN 33.8 PG (27.0-31.0); MEAN CORPUSCULAR HGB CONC 34.3 G/DL (32.0-36.0); MEAN CORPUSCULAR VOLUME 99 FL (80-99); MEAN PLATELET VOLUME 7.9 FL (6.5-10.1); MONOCYTES % (AUTO) 7.8 % (1.0-10.0); NEUTROPHILS % (AUTO) 70.6 % (45.0-75.0); PLATELET COUNT 268 K/UL (150-450); RED BLOOD COUNT 4.88 M/UL (4.70-6.10); RED CELL DISTRIBUTION WIDTH 11.4 % (11.6-14.8); WHITE BLOOD COUNT 9.2 K/UL (4.8-10.8)
[2016-06-07] MEDS: MS Contin 15mg tab ORAL SCH ×2 (08:51→20:11)
--- NOTE | 2016-06-07 08:52 | General Progress Note ---
Assessment/Plan Problem List: (1) HTN (hypertension) ICD Codes: I10 - Essential (primary) hypertension SNOMED: 67792859 (2) Chronic pain ICD Codes: G89.29 - Other chronic pain SNOMED: 10147559 (3) SOB (shortness of breath) ICD Codes: R06.02 - Shortness of breath SNOMED: 609981768 (4) Recurrent knee pain ICD Codes: M25.569 - Pain in unspecified knee SNOMED: 44711988 (5) Epileptic seizure, generalized ICD Codes: G40.309 - Generalized idiopathic epilepsy and epileptic syndromes, not intractable, without status epilepticus SNOMED: 35808600 (6) Uncontrolled seizures ICD Codes: R56.9 - Unspecified convulsions SNOMED: 15872642 Status: stable, progressing, tolerating diet Assessment/Plan ot pt diet pain control o2 pulm tx prn psyc tx neuro f/u Subjective Constitutional: Reports: weakness Allergies: Coded Allergies: DIVALPROEX SODIUM (Verified Allergy, Unknown, 04/13/16) All Systems: reviewed and negative except above Subjective o2nc sleepy Objective Last 24 Hour Vital Signs Date Time Temp Pulse Resp B/P Pulse Ox O2 Delivery O2 Flow Rate FiO2 06/07/16 04:17 98.7 74 19 108/58 98 Nasal Cannula 2.0 06/07/16 04:00 73 06/07/16 00:38 98.1 83 20 110/57 96 Nasal Cannula 2.0 06/07/16 00:00 84 06/06/16 20:00 97.5 102 15 151/84 100 Room Air 06/06/16 20:00 82 06/06/16 18:26 97.6 72 15 127/65 95 Room Air 1.0 06/06/16 17:44 97.6 72 15 127/65 95 Room Air 06/06/16 15:38 97.1 89 20 107/33 100 Nasal Cannula 1.0 06/06/16 13:41 72 18 106/60 100 Room Air 06/06/16 11:30 84 20 Room Air 06/06/16 10:59 98.4 84 20 123/78 96 Room Air Intake and Output 06/06/16 06/07/16 19:00 07:00 Intake Total 0 ml Balance 0 ml Intake Oral 0 ml # Voids 3 Laboratory Tests 06/06/16 12:00: White Blood Count 7.0, Red Blood Count 4.72, Hemoglobin 15.8, Hematocrit 46.1, Mean Corpuscular Volume 98, Mean Corpuscular Hemoglobin 33.5H, Mean Corpuscular Hemoglobin Concent 34.3, Red Cell Distribution Width 12.1, Platelet Count 241, Mean Platelet Volume 8.3, Neutrophils (%) (Auto) 64.2, Lymphocytes (%) (Auto) 24.7, Monocytes (%) (Auto) 6.3, Eosinophils (%) (Auto) 3.5H, Basophils (%) (Auto ) 1.3, Sodium Level 141, Potassium Level 4.1, Chloride Level 100, Carbon Dioxide Level 27, Anion Gap 14, Blood Urea Nitrogen 8, Creatinine 0.9, Estimat Glomerular Filtration Rate > 60, Glucose Level 92, Calcium Level 9.1, Total Bilirubin 0.2, Aspartate Amino Transf (AST/SGOT) 15, Alanine Aminotransferase ( ALT/SGPT) 14, Alkaline Phosphatase 87, Total Creatine Kinase 72, Creatine Kinase MB 1.6, Creatine Kinase MB Relative Index 2.2, Troponin I < 0.30, Total Protein 6.7, Albumin 4.2, Globulin 2.5, Albumin/Globulin Ratio 1.6, Salicylates Level < 1L, Acetaminophen Level < 10L, Carbamazepine (Tegretol) Level 4.1, Serum Alcohol < 10 06/07/16 07:10: White Blood Count [Pending], Red Blood Count [Pending], Hemoglobin [Pending], Hematocrit [Pending], Mean Corpuscular Volume [Pending], Mean Corpuscular Hemoglobin [Pending], Mean Corpuscular Hemoglobin Concent [Pending], Red Cell Distribution Width [Pending], Platelet Count [Pending], Mean Platelet Volume [ Pending], Neutrophils (%) (Auto) [Pending], Lymphocytes (%) (Auto) [Pending], Monocytes (%) (Auto) [Pending], Eosinophils (%) (Auto) [Pending], Basophils (%) (Auto) [Pending], Sodium Level 141, Potassium Level 4.1, Chloride Level 101, Carbon Dioxide Level 25, Anion Gap 15, Blood Urea Nitrogen 12, Creatinine 0.9, Estimat Glomerular Filtration Rate > 60, Glucose Level 93, Calcium Level 9.3, Total Bilirubin 0.3, Aspartate Amino Transf (AST/SGOT) 14, Alanine Aminotransferase (ALT/SGPT) 13, Alkaline Phosphatase 88, Total Protein 6.8, Albumin 4.4, Globulin 2.4, Albumin/Globulin Ratio 1.8 Height (Feet): 5 Height (Inches): 11.00 Weight (Pounds): 172 General Appearance: lethargic EENT: normal ENT inspection Neck: normal alignment Cardiovascular: normal peripheral pulses, normal rate, regular rhythm Respiratory/Chest: chest wall non-tender, lungs clear, normal breath sounds Abdomen: normal bowel sounds, non tender, soft Extremities: normal inspection Edema: no edema noted Arm (L), no edema noted Arm (R), no edema noted Leg (L), no edema noted Leg (R), no edema noted Pedal (L), no edema noted Pedal (R), no edema noted Generalized Neurologic: responsive, motor weakness Skin: normal pigmentation, warm/dry JUAN FROST Jun 07, 2016 08:52
[2016-06-07] MEDS ORDERED: Heparin 5000 units/ml inj SUBQ SCH (09:00)
--- NOTE | 2016-06-07 10:24 | Diagnostic Imaging Report ---
Indication: Shortness of breath Technique: XRAY CHEST 1 V Comparison: 04/13/16 Findings: The cardiomediastinal silhouette is within normal limits. There is no focal consolidation, pneumothorax or pleural effusion. Osseous structures demonstrate no acute abnormality. Impression: No acute cardiopulmonary disease.
[2016-06-07] MEDS: LORazepam Inj 2mg/ml 1ml IV PRN ×2 (11:21→21:08)
--- NOTE | 2016-06-07 14:20 | Neurology Progress Note ---
Objective Physical Exam Last Vital Signs Date Time Temp Pulse Resp B/P Pulse Ox O2 Delivery O2 Flow Rate FiO2 06/07/16 12:00 80 06/07/16 08:00 97.9 20 107/65 99 Room Air 06/07/16 04:17 2.0 Laboratory Tests Test 06/07/16 07:10 White Blood Count 9.2 K/UL (4.8-10.8) Red Blood Count 4.88 M/UL (4.70-6.10) Hemoglobin 16.5 G/DL (14.2-18.0) Hematocrit 48.1 % (42.0-52.0) Mean Corpuscular Volume 99 FL (80-99) Mean Corpuscular Hemoglobin 33.8 PG (27.0-31.0) H Mean Corpuscular Hemoglobin Concent 34.3 G/DL (32.0-36.0) Red Cell Distribution Width 11.4 % (11.6-14.8) L Platelet Count 268 K/UL (150-450) Mean Platelet Volume 7.9 FL (6.5-10.1) Neutrophils (%) (Auto) 70.6 % (45.0-75.0) Lymphocytes (%) (Auto) 18.4 % (20.0-45.0) L Monocytes (%) (Auto) 7.8 % (1.0-10.0) Eosinophils (%) (Auto) 2.4 % (0.0-3.0) Basophils (%) (Auto) 0.9 % (0.0-2.0) Sodium Level 141 mEQ/L (135-145) Potassium Level 4.1 mEQ/L (3.4-4.9) Chloride Level 101 mEQ/L (98-107) Carbon Dioxide Level 25 mEQ/L (20-30) Anion Gap 15 (5-15) Blood Urea Nitrogen 12 mg/dL (7-23) Creatinine 0.9 mg/dL (0.7-1.2) Estimat Glomerular Filtration Rate > 60 mL/min (>60) Glucose Level 93 mg/dL (74-106) Calcium Level 9.3 mg/dL (8.6-10.2) Total Bilirubin 0.3 mg/dL (0.0-1.2) Aspartate Amino Transf (AST/SGOT) 14 U/L (5-40) Alanine Aminotransferase (ALT/SGPT) 13 U/L (3-41) Alkaline Phosphatase 88 U/L (40-129) Total Protein 6.8 g/dL (6.6-8.7) Albumin 4.4 g/dL (3.5-5.2) Globulin 2.4 g/dL Albumin/Globulin Ratio 1.8 (1.0-2.7) Impression/Recommendations Problems: (1) 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 (2) chronic pain syndrom with drug seeking behavior (3) chronic seizure disorder r/o pseudoseizures. Status: stable, progressing, tolerating diet, unchanged Recommendations # [id number] ABBEY GAN Jun 07, 2016 14:20
[2016-06-07] MEDS: HYDROmorphone 1mg/ml Carpuject IVP PRN (19:22)
[2016-06-07] MEDS: Heparin 5000 units/ml inj SUBQ SCH (20:23)
[2016-06-07] MEDS ORDERED: Morphine Sulfate 2mg/ml Inj IVP PRN (21:00)
[2016-06-07] MEDS ORDERED: Mylanta II UD 30ml ORAL PRN (23:00)
[2016-06-07] MEDS ORDERED: traMADol 50mg tab ORAL PRN (23:00)
[2016-06-07] MEDS ORDERED: Zolpidem 5mg tab ORAL PRN (23:00)
[2016-06-08] VITALS: BP 105/62
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
[2016-06-08] MEDS: HYDROmorphone 1mg/ml Carpuject IVP PRN (02:50)
[2016-06-08 04:00] VITALS: BP 125/70
[2016-06-08] MEDS: LORazepam Inj 2mg/ml 1ml IV PRN ×3 (04:35→13:34)
[2016-06-08] MEDS: Miralax 17gm pkt ORAL PRN (04:45)
[2016-06-08] MEDS: QUEtiapine 200mg tab ORAL SCH ×3 (06:00→21:43)
[2016-06-08] MEDS: carBAMazepine 200mg tab ORAL SCH ×3 (06:00→21:43)
[2016-06-08 08:00] VITALS: BP 117/77
[2016-06-08] MEDS: Heparin 5000 units/ml inj SUBQ SCH ×2 (09:00→21:00)
--- NOTE | 2016-06-08 09:03 | General Progress Note ---
Assessment/Plan Problem List: (1) HTN (hypertension) ICD Codes: I10 - Essential (primary) hypertension SNOMED: 27453345 (2) Chronic pain ICD Codes: G89.29 - Other chronic pain SNOMED: 87223544 (3) SOB (shortness of breath) ICD Codes: R06.02 - Shortness of breath SNOMED: 332358064 (4) Recurrent knee pain ICD Codes: M25.569 - Pain in unspecified knee SNOMED: 13896523 (5) Epileptic seizure, generalized ICD Codes: G40.309 - Generalized idiopathic epilepsy and epileptic syndromes, not intractable, without status epilepticus SNOMED: 63261769 (6) Uncontrolled seizures ICD Codes: R56.9 - Unspecified convulsions SNOMED: 56552802 Status: stable, progressing, tolerating diet Assessment/Plan ot pt diet pain control o2 pulm tx prn psyc tx neuro f/u transfer to ps vs dc w ama cbc bmp am Subjective Constitutional: Reports: weakness Allergies: Coded Allergies: DIVALPROEX SODIUM (Verified Allergy, Unknown, 04/13/16) All Systems: reviewed and negative except above Subjective o2nc sl agitated Objective Last 24 Hour Vital Signs Date Time Temp Pulse Resp B/P Pulse Ox O2 Delivery O2 Flow Rate FiO2 06/08/16 08:00 96.8 85 20 117/77 98 Room Air 06/08/16 04:00 98.2 86 20 125/70 96 T-piece 2.0 06/08/16 03:46 75 06/08/16 03:20 88 18 96 Nasal Cannula 3.0 36 06/08/16 03:14 96 Nasal Cannula 2.0 28 06/08/16 03:13 Nasal Cannula 2.0 28 06/08/16 03:11 21 06/08/16 03:10 92 18 87 Room Air 3.0 21 06/08/16 00:00 97.4 79 16 105/62 95 Nasal Cannula 3.0 06/08/16 00:00 76 06/07/16 23:44 76 06/07/16 21:47 98.2 88 20 107/62 93 Nasal Cannula 2.0 06/07/16 21:10 98.2 06/07/16 19:52 98.2 06/07/16 19:00 97.7 90 20 107/56 95 Nasal Cannula 4.0 06/07/16 18:54 78 18 Room Air 21 06/07/16 18:53 98.2 95 20 136/83 98 Room Air 06/07/16 16:00 97.4 88 20 128/72 99 Room Air 76 06/07/16 16:00 84 06/07/16 12:00 97.2 78 20 106/56 97 Room Air 80 06/07/16 12:00 80 Intake and Output 06/07/16 06/08/16 19:00 07:00 Intake Total 120 ml 240 ml Balance 120 ml 240 ml Intake Oral 120 ml 240 ml # Voids 4 Height (Feet): 5 Height (Inches): 11.00 Weight (Pounds): 172 General Appearance: lethargic EENT: normal ENT inspection Neck: normal alignment Cardiovascular: normal peripheral pulses, normal rate, regular rhythm Respiratory/Chest: chest wall non-tender, lungs clear, normal breath sounds Abdomen: normal bowel sounds, non tender, soft Extremities: normal inspection Edema: no edema noted Arm (L), no edema noted Arm (R), no edema noted Leg (L), no edema noted Leg (R), no edema noted Pedal (L), no edema noted Pedal (R), no edema noted Generalized Neurologic: responsive Skin: normal pigmentation, warm/dry JUAN FROST Jun 08, 2016 09:03
[2016-06-08] MEDS: MS Contin 15mg tab ORAL SCH ×2 (09:20→21:00)
[2016-06-08 12:00] VITALS: BP 112/69
--- NOTE | 2016-06-08 14:06 | Pulmonology Progress Note ---
Assessment/Plan Assessment/Plan ASSESSMENT chronic seizure disorder with breakthrough episode, r/o pseudoseizure s/p fall R knee pain Status post right knee arthroscopic medial meniscectomy COPD History of head trauma, presenting with bilateral upper motor neuron deficit. Chronic pain syndrome. History of chronic psychiatric disease. Alcohol abuse. History of substance abuse, cocaine and methamphetamine. PLAN OF CARE CT head negative seizure precautions, continue Keppra and Tegretol ( level ok) loaded with Keppra in ER Ativan prn neuro eval -noted patient declined any further testing ortho eval noted ( hx of R knee surgery) X ray R knee - no evidence of fracture, STS or desolation as per ortho - no acute knee injury ortho recommended hinge brace WBAT PT/OT pain management pain specialist follows O2 HH prn CXR no evidence of COPD exacerbation , stable sat on RA patient wants O2 for SNF, will order ABG on RA to qualify can be transferred to [facility] [place] to dc from pulmonary standpoint, no evidence of COPD exacerbation, no need for O2 per pulse ox, but will order ABG since patient insist case discussed and evaluated by supervising physician Subjective Allergies: Coded Allergies: DIVALPROEX SODIUM (Verified Allergy, Unknown, 04/13/16) Subjective no chest pain, no SOB on RA sat stable, no signs of respiratory distress seen by ortho, no acute ortho issues seizures yesterday, seen by neuro Objective Last 24 Hour Vital Signs Date Time Temp Pulse Resp B/P Pulse Ox O2 Delivery O2 Flow Rate FiO2 06/08/16 11:26 106 06/08/16 08:04 Nasal Cannula 2.0 28 06/08/16 08:04 103 20 Room Air 21 06/08/16 08:04 99 Nasal Cannula 2.0 28 06/08/16 08:00 96.8 85 20 117/77 98 Room Air 06/08/16 08:00 85 06/08/16 04:00 98.2 86 20 125/70 96 T-piece 2.0 06/08/16 03:46 75 06/08/16 03:20 88 18 96 Nasal Cannula 3.0 36 06/08/16 03:14 96 Nasal Cannula 2.0 28 06/08/16 03:13 Nasal Cannula 2.0 28 06/08/16 03:11 21 06/08/16 03:10 92 18 87 Room Air 3.0 21 06/08/16 00:00 97.4 79 16 105/62 95 Nasal Cannula 3.0 06/08/16 00:00 76 06/07/16 23:44 76 06/07/16 21:47 98.2 88 20 107/62 93 Nasal Cannula 2.0 06/07/16 21:10 98.2 06/07/16 19:52 98.2 06/07/16 19:00 97.7 90 20 107/56 95 Nasal Cannula 4.0 06/07/16 18:54 78 18 Room Air 21 06/07/16 18:53 98.2 95 20 136/83 98 Room Air 06/07/16 16:00 97.4 88 20 128/72 99 Room Air 76 06/07/16 16:00 84 Intake and Output 06/07/16 06/08/16 18:59 06:59 Intake Total 120 ml 240 ml Balance 120 ml 240 ml Intake Oral 120 ml 240 ml # Voids 4 Objective General Appearance: WD/WN, no acute distress HEENT: normocephalic, atraumatic, anicteric, mucous membranes moist, PERRL Respiratory/Chest: chest wall non-tender, lungs clear - with moderate air entry , no respiratory distress, no accessory muscle use Cardiovascular: normal rate, regular rhythm - SR on tele Abdomen: normal bowel sounds, soft, non tender, non distended Genitourinary: normal external genitalia Extremities: no edema, pedal pulses normal Neurologic/Psychiatric: abnormal gait - w/chair bound , alert, oriented x 3, responsive Musculoskeletal: normal muscle bulk, atrophy - R knee degenerative changes , no edema, no tenderness Microbiology Date/Time Source Procedure Growth Status 06/06/16 17:17 Nasal Nares MRSA Culture - Final NO METHICILLIN RESISTANT STAPH AUREUS... Complete 06/06/16 17:17 Rectum VRE Culture - Final NO VANCOMYCIN RESISTANT ENTEROCOCCUS ... Complete Current Medications Medications (Trade) Dose Ordered Sig/Sharon Route PRN Reason Start Time Stop Time Status Last Admin Dose Admin Acetaminophen (Tylenol) 650 mg Q4H PRN ORAL fever 06/07/16 19:00 07/07/16 18:59 Al Hydroxide/Mg Hydroxide (Mylanta II) 30 ml Q6H PRN ORAL dyspepsia 06/07/16 23:00 07/07/16 22:59 Albuterol/ Ipratropium (DuoNeb 0.5-3(2.5)mg/3ml) 3 ml Q4H PRN HHN Shortness of Breath 06/07/16 20:15 06/12/16 20:14 06/08/16 03:10 Carbamazepine (TEGretol) 300 mg EVERY 8 HOURS ORAL 06/07/16 22:00 07/07/16 21:59 06/08/16 13:35 Dextrose (Dextrose 50%) STAT PRN IV Hypoglycemia 06/07/16 23:00 07/07/16 22:59 Folic Acid (Folate) 1 mg DAILY ORAL 06/08/16 09:00 07/08/16 08:59 06/08/16 09:19 Gabapentin (Neurontin) 300 mg EVERY 8 HOURS ORAL 06/07/16 22:00 07/07/16 21:59 06/08/16 13:35 Heparin Sodium (Porcine) (Heparin 5000 units/ml) 5,000 units EVERY 12 HOURS SUBQ 06/07/16 21:00 07/07/16 20:59 06/07/16 20:23 Hydromorphone HCl (Dilaudid) 1 mg Q4H PRN IVP severe pain 06/07/16 19:30 06/14/16 19:29 06/08/16 02:50 Lamotrigine (LaMICtal) 100 mg BID ORAL 06/08/16 09:00 07/08/16 08:59 06/08/16 09:19 Levetiracetam (Keppra) 1,500 mg TWICE A DAY ORAL 06/08/16 09:00 07/08/16 08:59 06/08/16 09:19 Lidocaine (Lidoderm 5% PATCH) 1 patch DAILY TDERMAL 06/08/16 09:00 07/08/16 08:59 06/08/16 09:22 Lorazepam (Ativan 2mg/ml 1ml) 2 mg EVERY HOUR PRN IV seizures 06/07/16 19:00 06/14/16 18:59 06/08/16 13:34 Morphine HCl (Morphine IR) 15 mg Q4H PRN ORAL moderate pain 06/07/16 19:30 06/14/16 19:29 Morphine Sulfate (MS Contin) 15 mg Q12HR ORAL 06/07/16 21:00 06/14/16 20:59 06/08/16 09:20 Morphine Sulfate (Morphine Sulfate) 1 mg EVERY 4 HOURS PRN IVP For Pain 06/07/16 21:00 06/14/16 20:59 06/08/16 03:41 Ondansetron HCl (Zofran) 4 mg Q6H PRN IVP Nausea & Vomiting 06/07/16 23:00 07/07/16 22:59 Polyethylene Glycol (Miralax) 17 gm HSPRN PRN ORAL Constipation 06/07/16 23:00 07/07/16 22:59 06/08/16 04:45 Quetiapine Fumarate (SEROquel) 200 mg EVERY 8 HOURS ORAL 06/07/16 22:00 07/07/16 21:59 06/08/16 13:36 Tramadol HCl (Ultram) 50 mg Q6H PRN ORAL For Pain 06/07/16 23:00 06/14/16 22:59 Zolpidem Tartrate (Ambien) 5 mg HSPRN PRN ORAL Insomnia 06/07/16 23:00 07/07/16 22:59 Edgar RoldanAna sanders NP Jun 08, 2016 14:06
[2016-06-08] MEDS ORDERED: LORazepam 1mg tab ORAL PRN (15:00)
[2016-06-08] MEDS ORDERED: Haloperidol 5mg/ml Inj IM ONE (16:00)
[2016-06-08 20:00] VITALS: BP 128/73
[2016-06-09] MEDS: Morphine IR 15mg tab ORAL PRN ×2 (03:39→05:50)
[2016-06-09 03:40] VITALS: BP 118/66
[2016-06-09] MEDS: LORazepam Inj 2mg/ml 1ml IV PRN ×2 (03:51→14:15)
--- NOTE | 2016-06-09 04:07 | Progress Note ---
DATE: 06/07/2016 SUBJECTIVE: The patient is still agitated and irritable. PLAN: Continue treatment with his dose of Seroquel 200 b.i.d. as well as Lamictal to stabilize his mood. Seen and assessed at bedside. Chart reviewed and discussed with staff. Continue to work with this patient to stabilize his mood. Wing Cervantes M.D. DR: JOAQUÍN JOB#: [id number] CC:
[2016-06-09] MEDS: carBAMazepine 200mg tab ORAL SCH ×2 (05:49→14:14)
[2016-06-09] MEDS: QUEtiapine 200mg tab ORAL SCH ×2 (05:50→14:14)
[2016-06-09 07:47] LABS: BASOPHILS % (AUTO) 0.7 % (0.0-2.0); EOSINOPHILS % (AUTO) 2.8 % (0.0-3.0); LYMPHOCYTES % (AUTO) 19.5 % (20.0-45.0); MEAN CORPUSCULAR HEMOGLOBIN 33.7 PG (27.0-31.0); MEAN CORPUSCULAR HGB CONC 33.7 G/DL (32.0-36.0); MEAN CORPUSCULAR VOLUME 100 FL (80-99); MEAN PLATELET VOLUME 7.6 FL (6.5-10.1); MONOCYTES % (AUTO) 6.9 % (1.0-10.0); PLATELET COUNT 239 K/UL (150-450); RED BLOOD COUNT 4.65 M/UL (4.70-6.10); RED CELL DISTRIBUTION WIDTH 11.4 % (11.6-14.8); WHITE BLOOD COUNT 9.2 K/UL (4.8-10.8)
[2016-06-09 08:02] VITALS: BP 127/61
[2016-06-09 08:27] LABS: ANION GAP 18 (5-15); CALCIUM 9.3 mg/dL (8.6-10.2); CARBON DIOXIDE 24 mEQ/L (20-30); CHLORIDE 99 mEQ/L (98-107); CREATININE 0.9 mg/dL (0.7-1.2); GLOMERULAR FILTRATION RATE > 60 mL/min (>60); HEMOLYSIS 9; SODIUM 141 mEQ/L (135-145)
[2016-06-09] MEDS: MS Contin 15mg tab ORAL SCH (08:42)
[2016-06-09] MEDS: Heparin 5000 units/ml inj SUBQ SCH (08:45)
[2016-06-09] MEDS: Miralax 17gm pkt ORAL PRN (09:18)
[2016-06-09 11:38] VITALS: BP 98/70
--- NOTE | 2016-06-09 13:46 | General Progress Note ---
Assessment/Plan Problem List: (1) HTN (hypertension) ICD Codes: I10 - Essential (primary) hypertension SNOMED: 90137065 (2) Chronic pain ICD Codes: G89.29 - Other chronic pain SNOMED: 80415149 (3) SOB (shortness of breath) ICD Codes: R06.02 - Shortness of breath SNOMED: 572712918 (4) Recurrent knee pain ICD Codes: M25.569 - Pain in unspecified knee SNOMED: 36893192 (5) Epileptic seizure, generalized ICD Codes: G40.309 - Generalized idiopathic epilepsy and epileptic syndromes, not intractable, without status epilepticus SNOMED: 69598153 (6) Uncontrolled seizures ICD Codes: R56.9 - Unspecified convulsions SNOMED: 83265297 Status: stable, progressing, tolerating diet Assessment/Plan ot pt diet pain control o2 pulm tx prn psyc tx neuro f/u transfer to [facility] vs dc w ama Subjective Constitutional: Reports: weakness Allergies: Coded Allergies: DIVALPROEX SODIUM (Verified Allergy, Unknown, 04/13/16) All Systems: reviewed and negative except above Subjective o2nc sl agitated Objective Last 24 Hour Vital Signs Date Time Temp Pulse Resp B/P Pulse Ox O2 Delivery O2 Flow Rate FiO2 06/09/16 12:00 85 06/09/16 11:38 97.7 93 20 98/70 93 Room Air 06/09/16 10:25 96 Room Air 06/09/16 10:25 90 18 Room Air 21 06/09/16 08:02 97.1 82 20 127/61 90 Room Air 06/09/16 08:00 96 06/09/16 03:57 86 06/09/16 03:40 97.9 20 118/66 98 06/09/16 00:00 20 06/08/16 23:58 85 06/08/16 22:00 98 Nasal Cannula 2.0 28 06/08/16 22:00 89 18 Room Air 21 06/08/16 22:00 Nasal Cannula 2.0 28 06/08/16 21:59 97.2 06/08/16 20:00 98.6 72 20 128/73 97 Intake and Output 06/08/16 06/09/16 19:00 07:00 Intake Total 240 ml Balance 240 ml Intake Oral 240 ml # Voids 3 3 Laboratory Tests 06/09/16 06:15: White Blood Count 9.2, Red Blood Count 4.65L, Hemoglobin 15.7, Hematocrit 46.5, Mean Corpuscular Volume 100H, Mean Corpuscular Hemoglobin 33.7H, Mean Corpuscular Hemoglobin Concent 33.7, Red Cell Distribution Width 11.4L, Platelet Count 239, Mean Platelet Volume 7.6, Neutrophils (%) (Auto) 70.0, Lymphocytes (%) (Auto) 19.5L, Monocytes (%) (Auto) 6.9, Eosinophils (%) (Auto) 2.8, Basophils (%) (Auto) 0.7, Sodium Level 141, Potassium Level 4.0, Chloride Level 99, Carbon Dioxide Level 24, Anion Gap 18H, Blood Urea Nitrogen 15, Creatinine 0.9, Estimat Glomerular Filtration Rate > 60, Glucose Level 110H, Calcium Level 9.3 Height (Feet): 5 Height (Inches): 11.00 Weight (Pounds): 172 General Appearance: alert EENT: normal ENT inspection Neck: normal alignment Cardiovascular: normal peripheral pulses, normal rate, regular rhythm Respiratory/Chest: chest wall non-tender, lungs clear, normal breath sounds Abdomen: normal bowel sounds, non tender, soft Extremities: normal inspection Edema: no edema noted Arm (L), no edema noted Arm (R), no edema noted Leg (L), no edema noted Leg (R), no edema noted Pedal (L), no edema noted Pedal (R), no edema noted Generalized Neurologic: responsive, motor weakness Skin: normal pigmentation, warm/dry JUAN FROST Jun 09, 2016 13:46
--- NOTE | 2016-06-09 14:17 | Consultation ---
DATE OF CONSULTATION: 06/06/2016 NOTE: POOR AUDIO QUALITY INITIAL PSYCHIATRIC CONSULTATION: HISTORY OF PRESENT ILLNESS: This patient came in confusion and disorganized. Mood labile. convalescent with recurrent seizures, right knee pain, encephalopathy, but he is irritable, agitated, confused, and disorganized as well. MEDICAL HISTORY: Includes seizure disorder, chronic pain, encephalopathy, right knee pain, and hypertension. PAST PSYCHIATRIC HISTORY: Paranoid schizophrenia, rule out bipolar 2 disorder. ALLERGIES: Depakote. SOCIAL HISTORY: The patient lives in Convalescent, financially supported by [employer] ([employer]) and Medicare. SUBSTANCE ABUSE HISTORY: Denies any recent drug and alcohol use. MENTAL STATUS EXAMINATION: This is a 41-year-old male with psychomotor agitation. Mood is irritable and agitated. Affect guarded and restricted. Thought process is disorganized and illogical. Denies any current suicidal or homicidal thoughts. His insight and judgment is poor. PLAN: Plan for this patient is to transfer this patient to [facility] once he is medically cleared and he will continue to be followed by Psychiatry throughout his hospital course. I encouraged him to interact appropriately with staff and other patients. Supportive therapy provided. Chart was reviewed and discussed with staff and the patient was seen and assessed at bedside. Wing Cervantes M.D. DR: JORGE A JOB#: [id number] CC:
--- NOTE | 2016-06-09 14:50 | Pulmonology Progress Note ---
Assessment/Plan Problems: (1) ETOH abuse (2) Epileptic seizure, generalized (3) Hypoxia (4) COPD (chronic obstructive pulmonary disease) (5) Tachycardia Assessment/Plan respiratory treatment No need for steroids f/u Neuro recommendation tachycardia secondary to seizures may go to med/surg. dc planning Subjective ROS Limited/Unobtainable: No Interval Events: pt want to go to med/surg, no other problems Allergies: Coded Allergies: DIVALPROEX SODIUM (Verified Allergy, Unknown, 04/13/16) Objective Last 24 Hour Vital Signs Date Time Temp Pulse Resp B/P Pulse Ox O2 Delivery O2 Flow Rate FiO2 06/09/16 13:45 130 06/09/16 12:00 85 06/09/16 11:38 97.7 93 20 98/70 93 Room Air 06/09/16 10:25 96 Room Air 06/09/16 10:25 90 18 Room Air 21 06/09/16 08:02 97.1 82 20 127/61 90 Room Air 06/09/16 08:00 96 06/09/16 03:57 86 06/09/16 03:40 97.9 20 118/66 98 06/09/16 00:00 20 06/08/16 23:58 85 06/08/16 22:00 98 Nasal Cannula 2.0 28 06/08/16 22:00 89 18 Room Air 21 06/08/16 22:00 Nasal Cannula 2.0 28 06/08/16 21:59 97.2 06/08/16 20:00 98.6 72 20 128/73 97 Intake and Output 06/08/16 06/09/16 19:00 07:00 Intake Total 240 ml Balance 240 ml Intake Oral 240 ml # Voids 3 3 General Appearance: WD/WN HEENT: normocephalic Respiratory/Chest: chest wall non-tender, normal breath sounds Cardiovascular: normal peripheral pulses, normal rate Abdomen: normal bowel sounds, soft, non tender Extremities: no cyanosis Skin: no rash Neurologic/Psychiatric: netezza developer II-XII grossly normal Microbiology Date/Time Source Procedure Growth Status 06/06/16 17:17 Nasal Nares MRSA Culture - Final NO METHICILLIN RESISTANT STAPH AUREUS... Complete 06/06/16 17:17 Rectum VRE Culture - Final NO VANCOMYCIN RESISTANT ENTEROCOCCUS ... Complete Laboratory Tests 06/09/16 06:15: White Blood Count 9.2, Red Blood Count 4.65L, Hemoglobin 15.7, Hematocrit 46.5, Mean Corpuscular Volume 100H, Mean Corpuscular Hemoglobin 33.7H, Mean Corpuscular Hemoglobin Concent 33.7, Red Cell Distribution Width 11.4L, Platelet Count 239, Mean Platelet Volume 7.6, Neutrophils (%) (Auto) 70.0, Lymphocytes (%) (Auto) 19.5L, Monocytes (%) (Auto) 6.9, Eosinophils (%) (Auto) 2.8, Basophils (%) (Auto) 0.7, Sodium Level 141, Potassium Level 4.0, Chloride Level 99, Carbon Dioxide Level 24, Anion Gap 18H, Blood Urea Nitrogen 15, Creatinine 0.9, Estimat Glomerular Filtration Rate > 60, Glucose Level 110H, Calcium Level 9.3, Thyroid Stimulating Hormone (TSH) [Pending], Free Thyroxine [ Pending] Current Medications Medications (Trade) Dose Ordered Sig/Sharon Route PRN Reason Start Time Stop Time Status Last Admin Dose Admin Acetaminophen (Tylenol) 650 mg Q4H PRN ORAL fever 06/07/16 19:00 07/07/16 18:59 Al Hydroxide/Mg Hydroxide (Mylanta II) 30 ml Q6H PRN ORAL dyspepsia 06/07/16 23:00 07/07/16 22:59 Albuterol/ Ipratropium (DuoNeb 0.5-3(2.5)mg/3ml) 3 ml Q4H PRN HHN Shortness of Breath 06/07/16 20:15 06/12/16 20:14 06/08/16 03:10 Carbamazepine (TEGretol) 300 mg EVERY 8 HOURS ORAL 06/07/16 22:00 07/07/16 21:59 06/09/16 14:14 Dextrose (Dextrose 50%) STAT PRN IV Hypoglycemia 06/07/16 23:00 07/07/16 22:59 Diphenhydramine HCl (Benadryl) 50 mg TID ORAL 06/08/16 18:00 07/08/16 17:59 06/09/16 14:14 Folic Acid (Folate) 1 mg DAILY ORAL 06/08/16 09:00 07/08/16 08:59 06/09/16 08:43 Gabapentin (Neurontin) 300 mg EVERY 8 HOURS ORAL 06/07/16 22:00 07/07/16 21:59 06/09/16 14:14 Haloperidol (Haldol) 5 mg TID ORAL 06/08/16 18:00 07/08/16 17:59 06/09/16 14:14 Heparin Sodium (Porcine) (Heparin 5000 units/ml) 5,000 units EVERY 12 HOURS SUBQ 06/07/16 21:00 07/07/16 20:59 06/09/16 08:45 Hydromorphone HCl (Dilaudid) 1 mg Q4H PRN IVP severe pain 06/07/16 19:30 06/14/16 19:29 06/08/16 02:50 Lamotrigine (LaMICtal) 25 mg BID ORAL 06/09/16 18:00 07/09/16 17:59 Lamotrigine (LaMICtal) 100 mg BID ORAL 06/09/16 18:00 07/09/16 17:59 Levetiracetam (Keppra) 1,500 mg TWICE A DAY ORAL 06/08/16 09:00 07/08/16 08:59 06/09/16 09:18 Lidocaine (Lidoderm 5% PATCH) 1 patch DAILY TDERMAL 06/08/16 09:00 07/08/16 08:59 06/09/16 08:41 Lorazepam (Ativan 2mg/ml 1ml) 2 mg EVERY HOUR PRN IV seizures 06/07/16 19:00 06/14/16 18:59 06/09/16 14:15 Lorazepam (Ativan) 1 mg Q6H PRN ORAL For Anxiety 06/08/16 15:00 06/15/16 14:59 06/09/16 02:50 Morphine HCl (Morphine IR) 15 mg Q4H PRN ORAL moderate pain 06/07/16 19:30 06/14/16 19:29 06/09/16 05:50 Morphine Sulfate (MS Contin) 15 mg Q12HR ORAL 06/07/16 21:00 06/14/16 20:59 06/09/16 08:42 Morphine Sulfate (Morphine Sulfate) 1 mg EVERY 4 HOURS PRN IVP For Pain 06/07/16 21:00 06/14/16 20:59 06/08/16 03:41 Ondansetron HCl (Zofran) 4 mg Q6H PRN IVP Nausea & Vomiting 06/07/16 23:00 07/07/16 22:59 Polyethylene Glycol (Miralax) 17 gm HSPRN PRN ORAL Constipation 06/07/16 23:00 07/07/16 22:59 06/09/16 09:18 Quetiapine Fumarate (SEROquel) 200 mg EVERY 8 HOURS ORAL 06/07/16 22:00 07/07/16 21:59 06/09/16 14:14 Tramadol HCl (Ultram) 50 mg Q6H PRN ORAL For Pain 06/07/16 23:00 06/14/16 22:59 Zolpidem Tartrate (Ambien) 5 mg HSPRN PRN ORAL Insomnia 06/07/16 23:00 07/07/16 22:59 06/09/16 02:51 JJ YUNG Jun 09, 2016 14:50
[2016-06-09 15:10] LABS: THYROID STIMULATING HORMONE 3.55 uIU/mL (0.300-4.500)
--- NOTE | 2016-06-09 17:26 | Cardiac Electrophysiology PN ---
Subjective Subjective [id number]. Tachycardia due to sinus tach due to agitation. ECG, echo and troponin negative. Objective Last 24 Hour Vital Signs Date Time Temp Pulse Resp B/P Pulse Ox O2 Delivery O2 Flow Rate FiO2 06/09/16 13:45 130 06/09/16 12:00 85 06/09/16 11:38 97.7 93 20 98/70 93 Room Air 06/09/16 10:25 96 Room Air 06/09/16 10:25 90 18 Room Air 21 06/09/16 08:02 97.1 82 20 127/61 90 Room Air 06/09/16 08:00 96 06/09/16 03:57 86 06/09/16 03:40 97.9 20 118/66 98 06/09/16 00:00 20 06/08/16 23:58 85 06/08/16 22:00 98 Nasal Cannula 2.0 28 06/08/16 22:00 89 18 Room Air 21 06/08/16 22:00 Nasal Cannula 2.0 28 06/08/16 21:59 97.2 06/08/16 20:00 98.6 72 20 128/73 97 Intake and Output 06/08/16 06/09/16 19:00 07:00 Intake Total 240 ml Balance 240 ml Intake Oral 240 ml # Voids 3 3 Laboratory Tests Test 06/09/16 06:15 White Blood Count 9.2 K/UL (4.8-10.8) Red Blood Count 4.65 M/UL (4.70-6.10) L Hemoglobin 15.7 G/DL (14.2-18.0) Hematocrit 46.5 % (42.0-52.0) Mean Corpuscular Volume 100 FL (80-99) H Mean Corpuscular Hemoglobin 33.7 PG (27.0-31.0) H Mean Corpuscular Hemoglobin Concent 33.7 G/DL (32.0-36.0) Red Cell Distribution Width 11.4 % (11.6-14.8) L Platelet Count 239 K/UL (150-450) Mean Platelet Volume 7.6 FL (6.5-10.1) Neutrophils (%) (Auto) 70.0 % (45.0-75.0) Lymphocytes (%) (Auto) 19.5 % (20.0-45.0) L Monocytes (%) (Auto) 6.9 % (1.0-10.0) Eosinophils (%) (Auto) 2.8 % (0.0-3.0) Basophils (%) (Auto) 0.7 % (0.0-2.0) Sodium Level 141 mEQ/L (135-145) Potassium Level 4.0 mEQ/L (3.4-4.9) Chloride Level 99 mEQ/L (98-107) Carbon Dioxide Level 24 mEQ/L (20-30) Anion Gap 18 (5-15) H Blood Urea Nitrogen 15 mg/dL (7-23) Creatinine 0.9 mg/dL (0.7-1.2) Estimat Glomerular Filtration Rate > 60 mL/min (>60) Glucose Level 110 mg/dL (74-106) H Calcium Level 9.3 mg/dL (8.6-10.2) Thyroid Stimulating Hormone (TSH) 3.550 uIU/mL (0.300-4.500) Free Thyroxine 1.04 ng/dL (0.86-1.85) DARIANA WAN Jun 09, 2016 17:26
--- NOTE | 2016-06-09 19:12 | Cardiology Report ---
APPROVED REPORT EKG Measurement Heart [id number] TN [id number] Normal sinus rhythm Normal ECG
--- NOTE | 2016-06-09 19:47 | Progress Note ---
DATE: 06/08/2016 SUBJECTIVE: The patient has seizure disorder, 41-year-old male. I will add Haldol 5 mg three times a day when medically cleared. He is still irritable, agitated, now he is trying to leave AMA, but he is not psychiatrically stable. DIAGNOSES: Schizoaffective bipolar type, irritable, agitated and combative that is why he requires inpatient psychiatric treatment when he is medically cleared so I am going to recommend transfer to psychiatric when medically cleared. Criteria is danger to self, gravely disabled and danger to others. Wing Cervantes M.D. DR: HIMANSHU JOB#: [id number] CC:
--- NOTE | 2016-06-09 20:37 | Consultation ---
DATE OF CONSULTATION: PSYCHOTHERAPY CONSULTATION PROGRESS NOTE: TREATING ATTENDING PHYSICIAN: Curtis Gavin D.O. HISTORY OF PRESENT ILLNESS: The patient is a 41-year-old male. The patient is coming through from the snf was admitted to the hospital for recurrent seizures and right knee pain. The patient has a long-term history of , recurrent paranoid schizophrenia, and major depression. The patient is very agitated, irritable, , labile, combative, anxious and irritable throughout the entire day. During this time, he has no viable plan for self care. He has requiring continuous monitoring. He is currently on Ativan. At this time, he also has a history of encephalopathy. He has a poor insight, poor judgment, and poor impulse control. He no suicidal ideation at this time . PAST MEDICAL HISTORY: Seizures, chronic encephalopathy, , and hypertension. ALLERGIES: The patient is allergic to Depakote. SUBSTANCE ABUSE HISTORY: The patient denies history of substance use, recurrent alcohol use, and [facility] use of cigarettes. PSYCHIATRIC HISTORY: The patient has a [facility] history of psychiatric treatment including paranoid schizophrenia. MEDICATIONS: The patient has been treated with psychotropic medications in the past. SOCIAL HISTORY: The patient is a 41-year-old male patient. The patient is from a [facility]. Financially sustained through Medicare. MENTAL STATUS EXAMINATION: The patient is alert and oriented x2 to person and place. Mood is irritable. Affect is labile. Thought process is disorganized. The patient has poor attention and concentration. Poor insight, judgment, and impulse control. DIAGNOSES: [place] I Paranoid schizophrenia. [place] II Deferred. [place] III Per History and Physical. [place] IV Psychosocial stressors are moderate. [place] V PLAN: This clinician assessed the patient. Provided the patient with supportive psychotherapy, reality orientation, and coping skills. Encouraging the patient to participate in treatment. Continue with medication management. . Continue with medication management and behavioral management. This clinician has reviewed the patient's chart. Discussed the treatment with the nursing staff. Abdi Medley PsyD. DR: JACOBO JOB#: [id number] CC:
--- NOTE | 2016-06-10 01:17 | Consultation ---
DATE OF CONSULTATION: 06/09/2016 CARDIOLOGY CONSULTATION REFERRING PHYSICIAN: Curtis Gavin D.O. REASON FOR CONSULTATION: Tachycardia. HISTORY OF PRESENT ILLNESS: The patient is a 41-year-old, gentleman with history of chronic obstructive pulmonary disease and seizure disorder, who lives in a convalescent home has a history of recurrent seizures. The patient was kept on carbamazepine. The patient stated that the medication was not working and he came to the emergency room for a seizure and falling on his knee complaining of right knee pain. The patient was admitted and a Cardiology consultation was obtained for the palpitation and tachycardia, however, tachycardia with sinus tachycardia and has been on the monitor. PAST MEDICAL HISTORY: Include, 1. Seizure disorder. 2. Chronic obstructive pulmonary disease. 3. Psychotic disorder. FAMILY HISTORY: Noncontributory. REVIEW OF SYSTEMS: Review of systems was thoroughly performed and was negative other than what was mentioned in the history of present illness. PHYSICAL EXAMINATION: VITAL SIGNS: Blood pressure is 98/70, pulse was 130 earlier, but currently is 90, respirations 18, and he is afebrile. HEAD AND NECK: Showed no JVD. LUNGS: Clear. CARDIOVASCULAR: Shows regular S1 and S2 with no gallop or murmur. ABDOMEN: Soft. EXTREMITIES: No pitting edema. LABORATORY DATA: His EKG showed normal sinus rhythm. There is normal electrocardiogram. Telemetry showed episodes of sinus tachycardia rate up to 130s. A 2D echocardiogram showed normal left ventricular systolic function. His white count 9.2, hemoglobin 15.7, hematocrit 46.5, and platelet count of 239,000. Sodium 141, potassium 4.0, BUN of 15, and creatinine 0.9. Troponin is negative. His urine toxicology is negative for acetaminophen and salicylates or alcohol. ASSESSMENT AND PLAN: 1. Tachycardia was tampered with sinus tachycardia likely the patient's anxiety and psychosis. His repeat EKG showed normal sinus rhythm and 2D echocardiogram normal left ventricular systolic function. No cardiac medication is warranted at this time. 2. Agitation and psychosis without any suicidal or homicidal thoughts. Further evaluation by Dr. Wing Cervantes. 3. Chronic seizure disorder with breakthrough episodes. Further evaluation by Dr. Espinoza. CT of the head was negative. The patient was loaded with Keppra. 4. History of alcohol abuse. 5. History of substance abuse with cocaine and methamphetamine. 6. Chronic pain syndrome. Thank you very much, Dr. Gavin, for allowing me to participate in the care of this patient. Please do not hesitate to contact me for any questions regarding my evaluation. Chirstiano Mora M.D. DR: GEORGETTE JOB#: [id number] CC:
--- NOTE | 2016-06-10 01:28 | Progress Note ---
DATE: 06/09/2016 NOTE: POOR AUDIO QUALITY TREATING ATTENDING PHYSICIAN: Curtis Gavin D.O. HISTORY: The patient is a 41-year-old male schizophrenia. This patient has been very agitated, irritable, combative, argumentative . The patient is assessed for a 5154 today, previously with aggression and . The patient has poor insight, poor judgement and poor impulse control. self care and required possible currently stable . This clinician provided the patient with supportive psychotherapy, reality orientation, and coping skills. The patient is very argumentative, , agitated, threatening nursing staff, also utilizing very foul language, cursing screaming. Continue medication management and behavioral management. This clinician has reviewed the patient's chart. Discussed the treatment with the nursing staff. Abdi Medley PsyD. DR: ASYA JOB#: [id number] CC:
--- NOTE | 2016-06-10 13:34 | Discharge Summary ---
Discharge Summary Hospital Course Date of Admission Jun 06, 2016 at 11:52 Date of Discharge Jun 09, 2016 at 17:30 Admitting Diagnosis seizure/fall HPI Rigo Howell is a 41 year old male who was admitted on Jun 06, 2016 at 11:52 for Seizure/Fall Hospital Course dc summary dictated #[id number] Discharge Medications Continued Medications: Acetaminophen* (Acetaminophen*) 160 Mg/5 Ml Elixir 27 MG ORAL Q4HR PRN for For Pain, ML Albuterol Sulfate (Ventolin Hfa) 18 Gm Hfa.aer.ad 2 PUFFS INH EVERY 6 HOURS PRN for Shortness of Breath, #18 GM 0 Refills Carbamazepine* (Carbamazepine*) 200 Mg Tablet 300 MG ORAL EVERY 8 HOURS, TAB Docusate Sodium* (Colace*) 100 Mg Capsule 100 MG ORAL DAILY, CAP Folic Acid* (Folic Acid*) 1 Mg Tablet 1 MG ORAL DAILY, TAB Gabapentin* (Gabapentin*) 300 Mg Capsule 300 MG ORAL EVERY 8 HOURS, CAP Hydroxyzine Hcl (Hydroxyzine Hcl) 10 Mg Tablet 10 MG PO EVERY 8 HOURS PRN for Itching, TAB Lamotrigine* (Lamictal*) 100 Mg Tablet 50 MG ORAL BID, #30 TAB 0 Refills Levetiracetam* (Levetiracetam*) 500 Mg Tablet 1500 MG ORAL TWICE A DAY, #60 TAB 0 Refills Multivitamin (Multi Vitamin Daily) 1 Each Tablet 1 TAB ORAL DAILY, #30 TAB 0 Refills Nicotine 14MG Patch* (Nicoderm Cq 14MG*) 1 Each Patch.td24 1 EACH TD DAILY, EA Polyethylene Glycol 3350* (Polyethylene Glycol 3350*) 17 Gm Powd.pack 17 GM ORAL BEDTIME PRN for Constipation, PACKET Quetiapine Fumarate* (Seroquel*) 200 Mg Tablet 200 MG ORAL EVERY 8 HOURS, TAB Tramadol Hcl* (Ultram*) 50 Mg Tablet 50 MG ORAL Q6H PRN for For Pain, #30 TAB 0 Refills Ziprasidone Hcl* (Geodon*) 40 Mg Capsule 80 MG ORAL TWICE A DAY, #60 CAP 0 Refills Zolpidem Tartrate* (Zolpidem Tartrate*) 5 Mg Tablet 5 MG ORAL BEDTIME PRN for Insomnia, TAB 0 Refills Discharge Condition Upon Discharge: stable Discharge Disposition Patient was discharged to Psychiatric Facility ([id number]) [facility] Discharge Diagnoses: Discharge Instructions Discharge Instructions Special Instructions I have been assigned to complete a D/C Summary on this account. I was not involved in the patient management Ana Hernández NP (Vanchtein) Jun 10, 2016 13:34
--- NOTE | 2016-06-11 04:48 | Discharge Summary 2 SIG ---
DATE OF ADMISSION: 06/06/2016 DATE OF DISCHARGE: 06/09/2016 REASON FOR HOSPITALIZATION: 41-year-old male was brought to emergency department for evaluation. Per paramedics, the patient had seizure at the [facility] where he resides. The patient has underlying history of seizure and taking Keppra and Tegretol for seizures. The patient stated that he was compliant with his medications. The patient also sustained mechanical fall two days ago secondary to seizure. activity, He stated that he hit his right knee. He complained of the right knee pain, dull, intermittent, nonradiating, 7/10 on a scale of 1 to 10. He denied chest pain, shortness of breath, dizziness, or palpitations. The patient has underlying history of COPD as well as history of cocaine abuse, and methamphetamine abuse. The patient admitted to telemetry floor. ADMITTING DIAGNOSES: 1. Chronic seizure disorder with breakthrough episode. 2. Status post mechanical fall. 3. Right knee pain. 4. Chronic obstructive pulmonary disease. 5. History of substance abuse. HOSPITAL COURSE: The patient admitted to telemetry floor. The patient was on seizure precaution. Keppra dose was increased. Continue Keppra and Tegretol. The patient was loaded with Keppra in the emergency room. Ativan p.r.n. for breakthrough seizure. Neurology seen and evaluated the patient and discussed with the patient the need for further management. He recommended EEG, however, the patient declined testing at that time. Levels were checked and anticonvulsant regimen optimized by neurologist. Neurology also noted that the patient has a history of head trauma and presented with bilateral upper motor neuron deficit, chronic, stable. Orthopedic surgeon had seen the patient as well. The patient has a history of right knee surgery, he complained of right knee pain after fall. X-ray of the right knee revealed no evidence of fracture, dislocation, or soft tissue swelling. Per orthopedic surgeon, no acute knee injury. Orthopedic surgeon recommended hinge brace and weightbearing status as tolerated. Continue to work with physical and occupational therapists as well as the pain management. Pain specialist followed the patient. Pain was controlled with current regimen. Chief Hospital Administrator followed. Supplemental oxygen and pulmonary toilet provided as needed. Chest x-ray revealed no acute cardiopulmonary disease. Oxygen saturation stable on room air. There was no evidence of COPD exacerbation. No wheezing. No chest tightness. Stable pulse oximetry. No complaint of dyspnea. The patient has underlying history of substance abuse including cocaine and methamphetamine. The patient was counseled on avoidance of street drugs and abstinence from alcohol. . On 06/08/2016, the patient became irritable, anxious, and agitated as well as combative. Psychiatric evaluation was requested. Psychiatrist has seen the patient and stated that the patient has schizoaffective bipolar type disorder and at this time he is danger to self as a gravely disabled and danger to others. He recommended transfer to inpatient psychiatric hospital after medically cleared. The patient noted to be tachycardiac. Sinus tachycardia on telemetry. Cardiology consult was requested. Per Cardiology, tachycardia was not cardiac related, likely secondary to anxiety, irritation, and agitation. Tachycardia resolved. No further seizure activity. The patient was medically cleared for transfer to inpatient psychiatric facility , [facility] on 06/09/2016. DISCHARGE DIAGNOSES: 1. Chronic seizure disorder with breakthrough episode, possible pseudoseizure. 2. Status post mechanical fall. 3. Right knee pain. 4. Status post right knee arthroscopic medial meniscectomy. 5. Chronic obstructive pulmonary disease. 6. History of head trauma presenting with bilateral upper motor neuron deficit. 7. Chronic pain syndrome. 8. Schizoaffective disorder, bipolar type. 9. History of substance abuse, cocaine, and methamphetamine. 10. Alcohol abuse. DISCHARGE MEDICATIONS: See medication reconciliation list. DISCHARGE INSTRUCTIONS: The patient was transferred via ambulance to [facility] with criteria of danger to self, gravely disabled, and danger to others. Follow up with psychiatrist as well as the internal medicine doctor at the facility. Curtis Gavin D.O. I have been assigned to dictate discharge summary on this account and I was not involved in the patient's management. Ana alemantommy, N.P. DR: Curtis JOB#: [id number] CC: OTONIEL
--- NOTE | 2016-06-11 13:47 | Cardiology Report ---
APPROVED REPORT EXAM: Two-dimensional and M-mode echocardiogram with Doppler and color Doppler. INDICATION Tachycardia M-Mode DIMENSIONS IVSd1.4 (0.7-1.1cm)Left Atrium (MM)2.9 (1.6-4.0cm) LVDd4.3 (3.5-5.6cm)Aortic Root2.6 (2.0-3.7cm) PWd1.2 (0.7-1.1cm)Aortic Cusp Exc.1.6 (1.5-2.0cm) LVDs2.8 (2.5-4.0cm) PWs1.5 cm Normal left ventricular chamber size, systolic function and wall motion. Left ventricular ejection fraction estimated to be 55-60%. Mild left ventricular hypertrophy. No evidence of pericardial effusion. All other cardiac chamber sizes are within normal limits. Mild focal aortic valve sclerosis with adequate cusp excursion. Mildy thickened mitral valve leaflets with normal excursion. Mild mitral annulus and aortic root calcification. Pulmonic valve not well visualized. Normal tricuspid valve structure. IVC dilated at 1.8cm without physiologic collapse. RAP estimated to be 20 mmhg. A color flow and spectral Doppler study was performed and revealed: Trace aortic regurgitation. Trace mitral regurgitation. Mitral inflow indicate normal left ventricular diastolic function. Trace tricuspid regurgitation. Tricuspid systolic velocities suggests peak right ventricular systolic pressure of 26 mmHg. No pulmonic regurgitation present.
--- NOTE | 2016-06-16 02:47 | Progress Note ---
DATE: 06/09/2016 SUBJECTIVE: A 41-year-old patient with status post seizures and fall, but he has severe agitation and irritability. PLAN: To transfer to Psychiatry once he is medically cleared. Chart reviewed and discussed with staff at a later day. He was seen and assessed at bedside. Wing Cervantes M.D. DR: Ngozi JOB#: [id number] CC:
== END 2016-06-09 17:30 | DRG 100 ==
LOC: ENRESERVTM → ENRESERVDT → EDBD 10:58 → EMR 11:44 → 2E 11:52 → EDBEDREQ 11:59 → 4E 06-07 18:18 → 2E 06-07 23:07
DX: G40.909 Epilepsy, unspecified, not intractable, without status epilepticus (principal); G93.40 Encephalopathy, unspecified; G82.20 Paraplegia, unspecified; G62.9 Polyneuropathy, unspecified; G89.4 Chronic pain syndrome; I10 Essential (primary) hypertension; Z91.81 History of falling; M25.561 Pain in right knee; J44.9 Chronic obstructive pulmonary disease, unspecified; F25.0 Schizoaffective disorder, bipolar type; F14.21 Cocaine dependence, in remission; F15.21 Other stimulant dependence, in remission; F43.10 Post-traumatic stress disorder, unspecified; R09.02 Hypoxemia; F10.21 Alcohol dependence, in remission; Z88.8 Allergy status to other drugs, medicaments and biological substances; R00.0 Tachycardia, unspecified; Z87.820 Personal history of traumatic brain injury; Z76.5 Malingerer [conscious simulation]
CPT/HCPCS: 36415; 70450; 71010; 80048; 80053; 80156; 80299; 80329; 82550; 82553; 82962; 84439; 84443; 84484; 85025; 87081; 93005; 93306; 94640; 94664; 94760; J7620

== ENCOUNTER 2016-08-12 00:16 | Emergency (ER) | payer MEDICARE, OTHER ==
[~2016-08-12] VITALS: Ht 167.6 cm; Wt 78.9 kg
[~2016-08-12 00:16] MED LIST changes: +ACETAMINOP160 MG/55 ORAL; +COLACE100 MG ORAL; +LAMICTAL100 MG ORAL; +LEVETIRACETAM500 MG ORAL; +MILK OF MA2400 MG/10 ORAL; +POLYETHYLENE GL17 GM ORAL; +VENTOLIN HFA18 GM INH
[2016-08-12] MEDS ORDERED: MORPHINE IR15 MG ORAL (00:30)
[2016-08-12] MEDS ORDERED: MECLIZINE HCL25 MG ORAL (00:30)
[2016-08-12] MEDS ORDERED: MIRALAX17 G2 ORAL (00:30)
[2016-08-12] MEDS ORDERED: COGENTIN1 MG/ML PO (00:30)
[2016-08-12] MEDS ORDERED: KEPPRA500 M4 ORAL (00:30)
[2016-08-12] MEDS ORDERED: TEGRETOL200 MG PO (00:30)
[2016-08-12] MEDS ORDERED: RENA-VITE TABL0.8 M1 PO (00:30)
[2016-08-12 02:05] VITALS: BP 124/71
[2016-08-12 03:41] VITALS: BP_SYST 121; BP_SYST 124; BP_DIAS 71; BP_DIAS 76
--- NOTE | 2016-08-12 04:39 | Emergency Room Report ---
History of Present Illness General Chief Complaint: Multiple Trauma/Fall Source: EMS Present Illness HPI 41-year-old male presents to ED for evaluation. Per EMS [facility] No reported LOC. Patient has history of seizures however there is no seizure. Patient states he has a headache. Also complaining of right wrist and right knee pain. Pain as throbbing, 8/10, nonradiating. No other aggravating or relieving factors. Denies any other injuries. Denies any other associated symptoms Allergies: Coded Allergies: DIVALPROEX SODIUM (Verified Allergy, Unknown, 04/13/16) Patient History Past Medical History: seizures Past Surgical History: none Pertinent Family History: none Social History: Denies: alcohol use, drug use, smoking Immunizations: UTD Reviewed Nursing Documentation: PMH: Agreed, PSxH: Agreed Nursing Documentation-PMH Hx Cardiac Problems: No Hx COPD: Yes Hx Cancer: No Hx Seizures: Yes Hx Peripheral Neuropathy: Yes Hx Head Trauma: Yes Review of Systems All Other Systems: negative except mentioned in HPI Physical Exam Vital Signs Date Time Temp Pulse Resp B/P Pulse Ox O2 Delivery O2 Flow Rate FiO2 08/12/16 00:16 98.1 91 18 116/76 93 Room Air Sp02 EP Interpretation: reviewed, normal General Appearance: no apparent distress, alert, GCS 15, non-toxic Head: normocephalic, atraumatic Eyes: bilateral eye PERRL, bilateral eye normal inspection ENT: hearing grossly normal, normal pharynx, no angioedema, normal voice Neck: full range of motion, supple/symm/no masses Respiratory: chest non-tender, lungs clear, normal breath sounds, speaking full sentences Cardiovascular #1: regular rate, rhythm, no edema Cardiovascular #2: 2+ carotid (R), 2+ carotid (L), 2+ radial (R), 2+ radial (L) , 2+ dorsalis pedis (R), 2+ dorsalis pedis (L) Gastrointestinal: normal bowel sounds, non tender, soft, non-distended, no guarding, no rebound Rectal: deferred Genitourinary: normal inspection, no CVA tenderness Musculoskeletal: back normal, gait/station normal, normal range of motion, tender - R wrist, R knee Neurologic: alert, oriented x3, responsive, motor strength/tone normal, sensory intact, speech normal Psychiatric: judgement/insight normal, memory normal, mood/affect normal, no suicidal/homicidal ideation Reflexes: 3+ bicep (R), 3+ bicep (L), 3+ tricep (R), 3+ tricep (L), 3+ knee (R) , 3+ knee (L) Skin: normal color, no rash, warm/dry, well hydrated Lymphatic: no adenopathy Procedures Splinting Splinting : Consent: Verbal Pre-Made Type: ARNALDO wrap - R knee Splint: volar - R wrist Pre-Proc Neuro Vasc Exam: normal Post-Proc Neuro Vasc Exam: normal Patient Tolerated: Well Complications: None Medical Decision Making Diagnostic Impression: Primary Impression: Fall Qualified Codes: W19.XXXA - Unspecified fall, initial encounter ER Course Hospital Course 41-year-old M presents to ED complaining of headache, R wrist and knee pain s/ p fall Differential diagnoses include: Fracture, dislocation, sprain, contusion Clinical course Patient placed on stretcher. After initial history and physical, I ordered CT and Xrays of R wrist, knee CT head unremarkable Xrays prelim read shows no acute fracture/dislocation. Wrist placed in a volar splint. Knee placed in Arnaldo wrap Diagnosis - fall Stable and discharged to SNF. apply ice, keep elevated. weight bear as tolerated. Followup with PMD. Return to ED if symptoms recur or worsen Other X-Ray Diagnostic Results Other X-Ray Diagnostic Results : X-Ray Ordered: R wrist, R knee EP Interpretation: Yes Findings: no fractures, no dislocation, no soft tissue swelling Number of Views: 3 Other Impression Right wrist-No fracture, no dislocation, no soft tissue swelling Right knee-No fracture, no dislocation, no soft tissue swelling CT/MRI/US Diagnostic Results CT/MRI/US Diagnostic Results : Imaging Test Ordered: CT head Impression no acute process Last Vital Signs Date Time Temp Pulse Resp B/P Pulse Ox O2 Delivery O2 Flow Rate FiO2 08/12/16 03:41 98.1 78 18 124/71 94 Room Air Status: improved Disposition: XFER SNF Condition: Stable Referrals: JUAN FROST (PCP) Patient Instructions: Fall Prevention in Hospitals, Adult MAGNOLIA DAO M.D. Aug 12, 2016 04:39
--- NOTE | 2016-08-12 08:29 | Diagnostic Imaging Report ---
Indications: Fall, right wrist injury and pain Technique: 3 views right wrist. Findings: Comparison: None No fracture, dislocation, joint space widening , surrounding soft tissue swelling/foreign body/other abnormality, or other acute changes are identified. IMPRESSION: No evidence of acute injury to the right wrist.
--- NOTE | 2016-08-12 08:31 | Diagnostic Imaging Report ---
Indications: Fall, right knee trauma and pain Technique: 3 views right knee. Findings: Comparison: None No fracture, dislocation, joint space widening or effusion , surrounding soft tissue swelling/foreign body/other abnormality, or other acute changes are identified. IMPRESSION: No evidence of acute injury to the right knee.
--- NOTE | 2016-08-12 08:39 | Diagnostic Imaging Report ---
Indications: Wall, trauma, pain Technique: Continuous helical CT imaging of the brain was performed with automatic exposure control on a Siemens sensation [address] scanner. Axial and coronal images were reconstructed at 5 mm slice thickness and interval. CTDI volume(s): 70 mGy Total DLP: 1558 mGy-cm Findings: Comparison: 06/06/16 Intracranial anatomy is unremarkable. No evidence of mass or hemorrhage, other attenuation abnormality, mass effect, midline shift, hydrocephalus or increased intracranial pressure. Bone window images are unremarkable. Mucoperiosteal thickening persists throughout the paranasal sinuses, without air-fluid levels. Mastoid air cells are clear. IMPRESSION: No evidence of acute injury or other acute intracranial pathology, unchanged Pansinusitis, stable. This correlates with [facility] preliminary report. The CT scanner at [facility] is accredited by the [employer] and the scans are performed using protocols designed to limit radiation exposure to as low as reasonably achievable to attain images of sufficient resolution adequate for diagnostic evaluation.
== END 2016-08-12 03:42 ==
LOC: EDBD 00:16 → EMR 00:55
DX: R51 Headache (principal); M25.531 Pain in right wrist; M25.561 Pain in right knee; Z88.8 Allergy status to other drugs, medicaments and biological substances; J44.9 Chronic obstructive pulmonary disease, unspecified; G62.9 Polyneuropathy, unspecified; W06.XXXA Fall from bed, initial encounter; Y92.129 Unspecified place in nursing home as the place of occurrence of the external cause; Y99.8 Other external cause status
CPT/HCPCS: 29530; 70450; 99284

== ENCOUNTER 2017-02-10 17:24 | Emergency (ER) | payer MEDICARE, OTHER ==
[~2017-02-10] VITALS: Ht 180.3 cm; Wt 68.0 kg
[~2017-02-10 17:24] MED LIST changes: +COGENTIN1 MG/ML PO; +KEPPRA500 M4 ORAL; +MECLIZINE HCL25 MG ORAL; +MIRALAX17 G2 ORAL; +MORPHINE IR15 MG ORAL; +RENA-VITE TABL0.8 M1 PO; +TEGRETOL200 MG PO
[2017-02-10 17:30] VITALS: BP 108/68
--- NOTE | 2017-02-10 17:57 | Emergency Room Report ---
History of Present Illness General Chief Complaint: General Complaint Source: Medical Record Present Illness HPI Patient present with complaints of pain to the right ankle lower leg and hip area Patient also reports that he hit the back of his head in the back of the bed Patient has a history of seizure disorder It was reported that the patient had a fall Unclear if this was a seizure activity versus mechanical fall Patient denies any chest pain or shortness of breath denies any abdominal pain Patient does wear a helmet given the epilepsy and fall precautions Patient does have underlying medical condition she does limit the ability to obtain history of present illness Allergies: Coded Allergies: DIVALPROEX SODIUM (Verified Allergy, Unknown, 04/13/16) Patient History Limited by: medical condition Past Medical History: see triage record Pertinent Family History: unable to obtain Reviewed Nursing Documentation: PMH: Agreed, PSxH: Agreed Nursing Documentation-PMH Hx Cardiac Problems: No Hx COPD: Yes Hx Cancer: No History Of Psychiatric Problem: Yes - schizo ,depression,schizoeffective Hx Seizures: Yes Hx Peripheral Neuropathy: Yes Hx Head Trauma: Yes Review of Systems All Other Systems: limited - Other than the ones mentioned in the history of present illness all others are reviewed however they do stay limited due to the patient's mental status Physical Exam Vital Signs Date Time Temp Pulse Resp B/P (MAP) Pulse Ox O2 Delivery O2 Flow Rate FiO2 02/10/17 17:29 98.1 78 16 120/80 98 Sp02 EP Interpretation: reviewed, normal General Appearance: no apparent distress Head: normocephalic, atraumatic Eyes: bilateral eye PERRL, bilateral eye EOMI ENT: normal pharynx, normal voice Neck: full range of motion, supple Respiratory: lungs clear, normal breath sounds Cardiovascular #1: regular rate, rhythm, no edema Musculoskeletal: other - Tender on palpation of the medial right ankle, tender on palpation of the right hip Neurologic: alert, responsive Skin: normal color, no rash Lymphatic: no adenopathy Medical Decision Making Diagnostic Impression: Primary Impression: Head injury Additional Impression: Contusion ER Course Given the patient's history and presentation CAT scan imaging of the brain was obtained which was negative Additional side imaging of the lower extremity As reported below all negative Patient has done well throughout his stay given the workup and observation patient is stable for transfer back to nursing facility under close observation Other X-Ray Diagnostic Results Other X-Ray Diagnostic Results #1: X-Ray ordered: right ankle # of Views/Limited Vs Complete: 3 View Indication: Pain EP Interpretation: Yes Interpretation: no dislocation, no soft tissue swelling, no fractures Impression: No acute disease Electronically Signed by: Galina Krueger DO Other X-Ray Diagnostic Results #2: X-Ray ordered: right tib-fib # of Views/Limited Vs Complete: 2 View Indication: Pain EP Interpretation: Yes Interpretation: no dislocation, no soft tissue swelling, no fractures Impression: No acute disease Electronically Signed by: Galina Krueger DO Other X-Ray Diagnostic Results #3: X-Ray ordered: right hip # of Views/Limited Vs Complete: 3 View Indication: Pain EP Interpretation: Yes Interpretation: no dislocation, no soft tissue swelling, no fractures Impression: No acute disease Electronically Signed by: Galina Krueger DO CT/MRI/US Diagnostic Results CT/MRI/US Diagnostic Results : Impression CT head no acute disease Last Vital Signs Date Time Temp Pulse Resp B/P (MAP) Pulse Ox O2 Delivery O2 Flow Rate FiO2 02/10/17 17:29 98.1 78 16 120/80 98 Status: improved Disposition: XFER SNF Condition: Improved Additional Instructions: Patient is provided with the discharge instructions notified to follow up with primary doctor in the next 2-3 days otherwise return to the er with any worsening symptoms. Please note that this report is being documented using [employer] technology. This can lead to erroneous entry secondary to incorrect interpretation by the dictating instrument. GALINA KRUEGER D.O. Feb 10, 2017 17:57
[2017-02-10 19:26] VITALS: BP 117/68
[2017-02-10 20:10] VITALS: BP 105/62
--- NOTE | 2017-02-11 08:41 | Diagnostic Imaging Report ---
Indications: Trauma, status post fall Technique: Spiral acquisitions obtained through the brain. Angled axial and coronal 5 x 5 mm slices were reconstructed. Total dose length product 1411 mGycm. CTDI vol(s) 70 mGy. Dose reduction achieved using automated exposure control Comparison: 08/12/2016 Findings: There is some image degradation due to motion artifact. No acute hemorrhage or edema. No mass effect or midline shift. Normal randhawa-white differentiation. Normal randhawa-white differentiation. Normal size ventricles and extra-axial CSF spaces. No significant interim change. Intact calvarium. Visualized orbits are unremarkable. There is ethmoid sinus disease Impression: Negative for acute intracranial bleed or mass effect Sinus disease This agrees with the preliminary interpretation provided overnight by [facility] teleradiology service. The CT scanner at [facility] is accredited by the [employer] and the scans are performed using protocols designed to limit radiation exposure to as low as reasonably achievable to attain images of sufficient resolution adequate for diagnostic evaluation.
--- NOTE | 2017-02-11 12:39 | Diagnostic Imaging Report ---
Indication: TRAUMA Technique: 3 views of the right ankle Comparison: none Findings: No acute fractures. No dislocations. Joint spaces are preserved. Normal mineralization. No radiopaque foreign body. Impression: Negative
--- NOTE | 2017-02-11 12:40 | Diagnostic Imaging Report ---
Indication: TRAUMA Technique: 2 views of the right tibia and fibula Comparison: none Findings: No acute fractures. No dislocations. Joint spaces are preserved. No radiopaque foreign body. Impression: Negative
--- NOTE | 2017-02-11 12:41 | Diagnostic Imaging Report ---
Indication: TRAUMA, right hip pain Technique: 2 views of the right hip Comparison: None Findings: No acute fractures. No dislocations. Joint spaces are preserved. Impression: Negative
== END 2017-02-10 20:10 | disposition home or self-care (01) ==
LOC: EDBD 17:24 → EMR 18:41
DX: S09.90XA Unspecified injury of head, initial encounter (principal); T14.8 Other injury of unspecified body region; W19.XXXA Unspecified fall, initial encounter; Y93.9 Activity, unspecified; Y92.9 Unspecified place or not applicable; M25.571 Pain in right ankle and joints of right foot; M25.551 Pain in right hip; G40.909 Epilepsy, unspecified, not intractable, without status epilepticus; Z88.8 Allergy status to other drugs, medicaments and biological substances; J44.9 Chronic obstructive pulmonary disease, unspecified; F20.9 Schizophrenia, unspecified; F32.9 Major depressive disorder, single episode, unspecified; G62.9 Polyneuropathy, unspecified; J32.9 Chronic sinusitis, unspecified; M79.604 Pain in right leg
CPT/HCPCS: 70450; 99284

== ENCOUNTER 2017-03-31 21:50 | Emergency (ER) | payer MEDICARE, OTHER ==
[~2017-03-31] VITALS: Ht 180.3 cm; Wt 77.1 kg
[2017-03-31] MEDS ORDERED: Ketorolac 60mg Inj IM ONE (22:30)
[2017-04-01 02:00] VITALS: BP 124/80
--- NOTE | 2017-04-01 07:00 | Emergency Room Report ---
History of Present Illness General Chief Complaint: Lower Extremity Injury Present Illness HPI The patient is a 41-year-old male presented after recent fall. Patient reportedly had prior history of seizure disorder. Patient was noted to have increased pain to his left hip and left lower extremity had patient is having some difficulty ambulating. Patient prior history of seizure disorder. Patient had been noted to have some gradual increasing pain. Allergies: Coded Allergies: DIVALPROEX SODIUM (Verified Allergy, Unknown, 04/13/16) Patient History Past Medical History: see triage record Reviewed Nursing Documentation: PMH: Agreed, PSxH: Agreed Nursing Documentation-PMH Hx Cardiac Problems: No Hx COPD: Yes Hx Cancer: No History Of Psychiatric Problem: Yes - DEPRESSION Hx Seizures: Yes Hx Peripheral Neuropathy: Yes Hx Head Trauma: Yes Review of Systems All Other Systems: negative except mentioned in HPI Physical Exam Vital Signs Date Time Temp Pulse Resp B/P (MAP) Pulse Ox O2 Delivery O2 Flow Rate FiO2 03/31/17 21:44 98.2 98 20 124/80 97 Room Air Sp02 EP Interpretation: reviewed, normal General Appearance: normal inspection, well appearing, no apparent distress, alert, GCS 15, non-toxic Head: normocephalic, atraumatic ENT: normal ENT inspection, hearing grossly normal, normal voice Neck: normal inspection, full range of motion, supple, no bony tend Respiratory: normal inspection, lungs clear, normal breath sounds, no respiratory distress, no retraction, no wheezing Cardiovascular #1: regular rate, rhythm, no edema Gastrointestinal: normal inspection, normal bowel sounds, non tender, soft, no guarding, no hernia Genitourinary: no CVA tenderness Musculoskeletal: normal inspection, back normal, normal range of motion Neurologic: normal inspection, alert, oriented x3, responsive, dredge hand III-XII nml as tested, motor strength/tone normal, speech normal Psychiatric: normal inspection, judgement/insight normal, mood/affect normal Skin: normal inspection, normal color, no rash Medical Decision Making Diagnostic Impression: Primary Impression: Fall Additional Impression: Hip pain ER Course Patient presented for fall. Differential diagnosis included but was not limited to fracture, contusion, vascular insufficiency, aortic aneurysm, cellulitis. Patient's benign exam and does not appear to require any laboratory testing at this time. X-ray imaging of the the left hip and femur 7 views interpreted By me showed normal bony alignment with degenerative changes with no to fracture. Patient Was discharged back to [facility]. Nursing staff were advised her return precautions. The patient was transferred home by ambulance. Last Vital Signs Date Time Temp Pulse Resp B/P (MAP) Pulse Ox O2 Delivery O2 Flow Rate FiO2 04/01/17 02:00 98.2 20 124/80 97 Room Air 03/31/17 21:44 98 Status: improved Disposition: XFER [facility] Condition: Stable Patient Instructions: Contusion, Acute Urinary Retention, Male Yosef Smith Apr 01, 2017 07:00
--- NOTE | 2017-04-01 09:33 | Diagnostic Imaging Report ---
Indication: PAIN STATUS post fall Technique: Noncontrast spiral acquisitions obtained through the pelvis. Multiplanar reconstructions generated. Total dose length product 328 mGycm. CTDIvol(s) 11 mGy. Dose reduction achieved using automated exposure control Comparison: None Findings: No acute fractures. No dislocations. Small bone islands are seen in the right femoral head and left iliac bone. The joint spaces are preserved. The bladder is distended. The remaining pelvic viscera are unremarkable. Impression: No acute bony trauma Distended bladder This agrees with the preliminary interpretation provided by the emergency room physician The CT scanner at [facility] is accredited by the [employer] and the scans are performed using protocols designed to limit radiation exposure to as low as reasonably achievable to attain images of sufficient resolution adequate for diagnostic evaluation.
--- NOTE | 2017-04-01 11:54 | Diagnostic Imaging Report ---
Indications: PAIN Technique: Two views of the left femur Comparison: None Findings: No acute fractures. No dislocations. Joint spaces are preserved. No radiopaque foreign body demonstrated Impression: Negative This agrees with the preliminary interpretation provided by the emergency room physician
[2017-04-22] MEDS ORDERED: FISH OIL CAP1000 MG ORAL (12:17)
== END 2017-04-01 02:00 | disposition home or self-care (01) ==
LOC: EDBD 21:50 → EMR 22:04
DX: M25.552 Pain in left hip (principal); J44.9 Chronic obstructive pulmonary disease, unspecified; F32.9 Major depressive disorder, single episode, unspecified; G62.9 Polyneuropathy, unspecified
CPT/HCPCS: 72192; 96372; 99284

== ENCOUNTER 2017-04-17 22:54 | Inpatient (IN) | payer MEDICARE, OTHER ==
[~2017-04-17] VITALS: Ht 180.3 cm; Wt 78.5 kg
--- NOTE | 2017-04-17 23:05 | Emergency Room Report ---
History of Present Illness General Chief Complaint: Male Urogenital Problems Source: Patient, Medical Record Present Illness HPI Patient is a 41-year-old male who presented after increased persistent erection. Patient had been noted be having erection starting about approximately 7 AM. He reports prior episodes of priapism. Patient has prior history of psychiatric disease and bipolar. He is taking multiple psychiatric medications as well as alpha-joseph. He does not take trazodone. He denies taking Viagra or any erectile dysfunction medications. Allergies: Coded Allergies: DIVALPROEX SODIUM (Verified Allergy, Unknown, 04/17/17) Patient History Past Medical History: see triage record Reviewed Nursing Documentation: PMH: Agreed, PSxH: Agreed Nursing Documentation-PMH Past Medical History: No History, Except For Hx Cardiac Problems: No Hx COPD: Yes Hx Cancer: No Hx Seizures: Yes Hx Peripheral Neuropathy: Yes Hx Head Trauma: Yes Review of Systems All Other Systems: negative except mentioned in HPI Physical Exam Vital Signs Date Time Temp Pulse Resp B/P (MAP) Pulse Ox O2 Delivery O2 Flow Rate FiO2 04/17/17 22:55 97.3 97 16 138/82 98 Room Air Sp02 EP Interpretation: reviewed, normal General Appearance: normal inspection, no apparent distress, alert, GCS 15, Chronically Ill Head: atraumatic ENT: normal ENT inspection, hearing grossly normal, normal voice Neck: normal inspection, full range of motion, supple, no bony tend Respiratory: normal inspection, lungs clear, normal breath sounds, no respiratory distress, no retraction, no wheezing Cardiovascular #1: regular rate, rhythm, no edema Gastrointestinal: normal inspection, normal bowel sounds, non tender, soft, no guarding, no hernia Genitourinary: no CVA tenderness, other - penis erect Musculoskeletal: normal inspection, back normal, normal range of motion Neurologic: normal inspection, alert, responsive, speech normal Psychiatric: normal inspection, judgement/insight normal, mood/affect normal Skin: normal inspection, normal color, no rash Medical Decision Making Diagnostic Impression: Primary Impression: Priapism, unspecified Additional Impression: COPD (chronic obstructive pulmonary disease) ER Course The patient presented for priapism. Differential diagnosis included was not limited to medication-induced priapism, trauma, hypothyroidism, lymphoma among others.Because of complexity of patient's case laboratory testing and imaging studies were ordered. Dr. Helney was contacted for urology consult. Patient had corporal irrigation as per his note by Dr. Henley. Patient was noted to have some recurrence of symptoms during observation.The patient was given subcutaneous terbutaline without any change. The patient will be admitted to the hospital for further monitoring. Dr Curtis Gavin was contacted for inpatient management due to primary care physician. Labs Test 04/18/17 00:20 04/18/17 00:39 White Blood Count 10.1 K/UL (4.8-10.8) Red Blood Count 4.44 M/UL (4.70-6.10) Hemoglobin 15.7 G/DL (14.2-18.0) Hematocrit 44.9 % (42.0-52.0) Mean Corpuscular Volume 101 FL (80-99) Mean Corpuscular Hemoglobin 35.3 PG (27.0-31.0) Mean Corpuscular Hemoglobin Concent 34.9 G/DL (32.0-36.0) Red Cell Distribution Width 10.7 % (11.6-14.8) Platelet Count 259 K/UL (150-450) Mean Platelet Volume 7.9 FL (6.5-10.1) Neutrophils (%) (Auto) 71.5 % (45.0-75.0) Lymphocytes (%) (Auto) 17.5 % (20.0-45.0) Monocytes (%) (Auto) 6.9 % (1.0-10.0) Eosinophils (%) (Auto) 3.0 % (0.0-3.0) Basophils (%) (Auto) 1.1 % (0.0-2.0) Sodium Level 141 MMOL/L (136-145) Potassium Level 3.8 MMOL/L (3.5-5.1) Chloride Level 105 MMOL/L (98-107) Carbon Dioxide Level 25 MMOL/L (21-32) Anion Gap 11 mmol/L (5-15) Blood Urea Nitrogen 16 mg/dL (7-18) Creatinine 1.1 MG/DL (0.55-1.30) Estimat Glomerular Filtration Rate > 60 mL/min (>60) Glucose Level 96 MG/DL (74-106) Calcium Level 9.1 MG/DL (8.5-10.1) Urine Color Pale yellow Urine Appearance Clear Urine pH 7 (4.5-8.0) Urine Specific [place] 1.010 (1.005-1.035) Urine Protein Negative (NEGATIVE) Urine Glucose (UA) Negative (NEGATIVE) Urine Ketones Negative (NEGATIVE) Urine Occult Blood 1+ (NEGATIVE) Urine Nitrite Negative (NEGATIVE) Urine Bilirubin Negative (NEGATIVE) Urine Urobilinogen Normal MG/DL (0.0-1.0) Urine Leukocyte Esterase Negative (NEGATIVE) Urine RBC 0-2 /HPF (0 - 0) Urine WBC 0-2 /HPF (0 - 0) Urine Squamous Epithelial Cells None /LPF (NONE/OCC) Urine Bacteria None /HPF (NONE) Last Vital Signs Date Time Temp Pulse Resp B/P (MAP) Pulse Ox O2 Delivery O2 Flow Rate FiO2 04/17/17 22:55 97.3 97 16 138/82 98 Room Air Status: improved Disposition: ADMITTED INPATIENT Condition: Stable Yosef Smith Apr 17, 2017 23:05
[2017-04-17] MEDS ORDERED: Phenylephrine 50 MG in D5W 245 ML IV SCH (23:15)
[2017-04-17] MEDS ORDERED: Lidocaine 1% 10mg/ml/Epi 0.005mg/ml 30ml vial INJ ONE (23:15)
[2017-04-17] MEDS ORDERED: Phenylephrine 10mg/ml 5ml vial IV ONE (23:16)
[2017-04-17] MEDS ORDERED: BENZTROPINE MESY1 MG PO (23:18)
[2017-04-17] MEDS ORDERED: CHLORPROMAZINE25 MG PO (23:18)
[2017-04-17] MEDS ORDERED: ASPIRIN81 MG ORAL (23:18)
[2017-04-17] MEDS ORDERED: Ketamine HCl 100mg syr IV ONE (23:45)
[2017-04-18] VITALS (9 sets, daily range): BP systolic 120–137; BP diastolic 59–80
[2017-04-18] MEDS ORDERED: Morphine Sulfate 4mg/ml Inj IVP ONE (00:30)
[2017-04-18 00:50] LABS: BASOPHILS % (AUTO) 1.1 % (0.0-2.0); LYMPHOCYTES % (AUTO) 17.5 % (20.0-45.0); MEAN CORPUSCULAR HEMOGLOBIN 35.3 PG (27.0-31.0); MEAN CORPUSCULAR HGB CONC 34.9 G/DL (32.0-36.0); MEAN CORPUSCULAR VOLUME 101 FL (80-99); MEAN PLATELET VOLUME 7.9 FL (6.5-10.1); MONOCYTES % (AUTO) 6.9 % (1.0-10.0); NEUTROPHILS % (AUTO) 71.5 % (45.0-75.0); PLATELET COUNT 259 K/UL (150-450); RED BLOOD COUNT 4.44 M/UL (4.70-6.10); RED CELL DISTRIBUTION WIDTH 10.7 % (11.6-14.8); WHITE BLOOD COUNT 10.1 K/UL (4.8-10.8)
[2017-04-18 00:59] LABS: APPEARANCE,URINE CLEAR; KETONES,URINE NEGATIVE (NEGATIVE); LEUKOCYTE ESTERASE ,URINE NEGATIVE (NEGATIVE); NITRITE,URINE NEGATIVE (NEGATIVE); PH,URINE 7 (4.5-8.0); PROTEIN,URINE NEGATIVE (NEGATIVE); UROBILINOGEN,URINE NORMAL MG/DL (0.0-1.0)
[2017-04-18 01:02] LABS: ANION GAP 11 mmol/L (5-15); CALCIUM 9.1 MG/DL (8.5-10.1); CARBON DIOXIDE 25 MMOL/L (21-32); CHLORIDE 105 MMOL/L (98-107); CREATININE 1.1 MG/DL (0.55-1.30); GLOMERULAR FILTRATION RATE > 60 mL/min (>60); POTASSIUM 3.8 MMOL/L (3.5-5.1); SODIUM 141 MMOL/L (136-145)
[2017-04-18 01:07] LABS: RBC,URINE 0-2 /HPF (0 - 0); WBC,URINE 0-2 /HPF (0 - 0)
[2017-04-18] MEDS ORDERED: ceFAZolin 1gm/50ml Premix 50 ML IV ONE (01:30)
[2017-04-18] MEDS ORDERED: ceFAZolin sod 1 GM in NS 55 ML IVPB ONE (01:45)
[2017-04-18] MEDS ORDERED: Terbutaline 1mg/ml Inj SUBQ ONE (02:15)
--- NOTE | 2017-04-18 04:30 | Consultation ---
DATE OF CONSULTATION: 04/18/2017 UROLOGY CONSULTATION ATTENDING/CONSULTING PHYSICIAN: Dr. Yosef Smith at the emergency department. CHIEF COMPLAINT/HISTORY OF PRESENT ILLNESS: I was asked by Dr. Smith to evaluate this 41-year-old gentleman regarding history of priapism since 7 o'clock yesterday morning. Briefly, the patient takes a number of psychiatric medications for bipolar disorder. There is no history of penile or perineal trauma. The patient does not have any history of sickle cell anemia, leukemia, or beta thalassemia. He did not use any Viagra, PDE5, or injectable erectile medication. This has apparently happened to the patient in the past and it appears that his psychiatric medications are somewhat responsible for the same. He has no urinary symptoms or other urologic issues. PAST MEDICAL HISTORY: 1. Priapism. 2. Psychiatric disorder/bipolar disease. 3. Hypoxia. 4. COPD. 5. Alcohol abuse. 6. Hypertension. 7. Chronic seizure disorder. 8. PTSD. MEDICATIONS: Please see the chart for current medications and administration details. ALLERGIES: Depakote. SOCIAL HISTORY: Unremarkable for tobacco, alcohol, or drug use currently. Apparently, the patient has history of alcohol abuse. FAMILY HISTORY: Noncontributory. REVIEW OF SYSTEMS: A 12-system review of systems is essentially unremarkable outside of what is described above. PHYSICAL EXAMINATION: GENERAL: The patient is a middle-aged gentleman, awake, alert, pleasant, oriented x4, in no obvious distress. HEENT: NC/AT. EOMI. NECK: Supple. Oropharynx clear. CHEST: Within normal limits. ABDOMEN: Soft, flat, nontender, and nondistended. EXTREMITIES: Warm and well perfused. No cyanosis, clubbing, or edema. NEUROLOGIC: Grossly nonfocal. GENITOURINARY: Reveals priapistic painful erection consistent with penis priapism. There are bilateral descended testis and cord structures with no masses or tenderness to palpation. LABORATORY DATA: White blood cell count 10.1, hematocrit 44.9, and platelets 259,000. Sodium 141, potassium 3.8, chloride 105, bicarbonate 25, BUN 16, creatinine 1.1, glucose 96, and calcium 9.1. Urinalysis, specific gravity 1.010, pH 7.0. Dip test notable for 1+ occult blood. Microanalysis essentially negative. DIAGNOSTIC IMAGING: None. ASSESSMENT AND PLAN: In summary, the patient is a 41-year-old gentleman with history of significant psychiatric disease and he takes a number of psychiatric medications for the same. He presents with recurrent venous priapism likely secondary to same. He denies any other causal events or new medications or use of PDE5. Physical exam reveals priapistic erection. Laboratory data is essentially unremarkable. There is no relevant diagnostic imaging. Today at the bedside under sterile conditions, I placed a 21-gauge butterfly needle into the patient's left corporal body. This was used to irrigate the corpora with sterile water. There was a significant amount of sludging and fibrosis and clot as the priapism had been approaching 20 hours. Nevertheless, I proceeded to do corporal irrigation and also treated the patient with 1 mg/mL phenylephrine and 1 mg/mL 1% lidocaine with epinephrine solution into the corporal body as well. Although it was slow and painstaking over the course of 45 minutes to an hour, I was able to reduce the patient's priapism. He tolerated the procedure without any abnormalities or side effects with the medications. Ice pack was applied afterwards. He was given instructions in the emergency room and we also had further instruction to hold the patient's psychiatric medicines for a day or two. Thank you for allowing me to participate in the care of this unfortunate gentleman. Please do not hesitate to contact me with any questions that you may further have regarding his care. I will be happy to see him with you as needed. Silvino Henley M.D. DR: JOSE JOB#: [id number] CC:
[2017-04-18] MEDS ORDERED: LORazepam Inj 2mg/ml 1ml IV PRN (06:45)
[2017-04-18] MEDS ORDERED: Mylanta II UD 30ml ORAL PRN (06:45)
[2017-04-18] MEDS ORDERED: Zolpidem 5mg tab ORAL PRN (06:45)
[2017-04-18] MEDS ORDERED: Miralax 17gm pkt ORAL PRN (06:45)
[2017-04-18] MEDS ORDERED: traMADol 50mg tab ORAL PRN (06:45)
[2017-04-18] MEDS: Aspirin Baby 81mg ORAL SCH (09:00)
[2017-04-18] MEDS: chlorproMAZINE 10mg tab ORAL SCH ×3 (09:00→17:55)
[2017-04-18] MEDS: Benztropine 1mg tab ORAL SCH ×2 (10:11→17:50)
[2017-04-18] MEDS: carBAMazepine 200mg tab ORAL SCH ×3 (10:11→17:51)
[2017-04-18] MEDS: Morphine Sulfate 2mg/ml Inj IVP PRN ×3 (10:24→21:38)
[2017-04-18] MEDS: QUEtiapine 200mg tab ORAL SCH ×2 (14:00→22:00)
--- NOTE | 2017-04-18 14:26 | Consultation ---
History of Present Illness General Date patient seen: Apr 18, 2017 Time patient seen: 10:00 Chief Complaint: Male Urogenital Problems Referring physician: dr Gavin Reason for Consultation: in hospital management Present Illness HPI 41-year-old male with hx of psychiatric disorder, bipolar disorder , seizure disorder, COPD presented after increased persistent erection. Patient noted erection starting approximately 7 AM. He reported prior episodes of priapism. Patient on multiple psychiatric medications as well as alpha-joseph. He denied taking Viagra or other erectile dysfunction medications. in ED VSS labs unremarkable urologist consulted Patient had corporal irrigation by urologist , initially was able to reduce priapism However, patient was noted to have recurrence of symptoms during observation. The patient was given subcutaneous terbutaline without any change. Patient was admitted for further management Allergies: Coded Allergies: DIVALPROEX SODIUM (Verified Allergy, Unknown, 04/17/17) Medication History Scheduled Aspirin* (Aspirin*), 81 MG ORAL DAILY, (Reported) Benztropine Mesylate (Cogentin), 2 MG PO BID, (Reported) Benztropine Mesylate* (Benztropine Mesylate*), 1 MG PO BID, (Reported) Carbamazepine (Tegretol*), 200 MG PO TID, (Reported) Carbamazepine* (Carbamazepine*), 300 MG ORAL EVERY 8 HOURS, (Reported) Chlorpromazine Hcl (Chlorpromazine Hcl), 20 MG PO TID, (Reported) Docusate Sodium* (Colace*), 100 MG ORAL DAILY, (Reported) Folic Acid* (Folic Acid*), 1 MG ORAL DAILY, (Reported) Gabapentin* (Gabapentin*), 300 MG ORAL EVERY 8 HOURS, (Reported) Lamotrigine* (Lamictal*), 50 MG ORAL BID, (Reported) Levetiracetam (Levetiracetam), 750 MG ORAL BID, (Reported) Levetiracetam (Keppra), 500 MG ORAL EVERY 12 HOURS, (Reported) Levetiracetam* (Levetiracetam*), 1,500 MG ORAL TWICE A DAY, (Reported) Lorazepam* (Ativan*), 1 MG IM Q6HR, (Reported) Morphine HCl (Morphine Sulfate ER), 15 MG ORAL DAILY, (Reported) Multivitamin (Multi Vitamin Daily), 1 TAB ORAL DAILY, (Reported) Nicotine 14MG Patch* (Nicoderm Cq 14MG*), 1 EACH TD DAILY, (Reported) Polyethylene Glycol 3350* (Miralax*), 17 GM ORAL DAILY, (Reported) Quetiapine Fumarate* (Seroquel*), 200 MG ORAL EVERY 8 HOURS, (Reported) Ziprasidone Hcl* (Geodon*), 80 MG ORAL TWICE A DAY, (Reported) Scheduled PRN Acetaminophen* (Acetaminophen*), 27 MG ORAL Q4HR PRN for For Pain, (Reported) Albuterol Sulfate (Ventolin Hfa), 2 PUFFS INH EVERY 6 HOURS PRN for Shortness of Breath, (Reported) Hydroxyzine Hcl (Hydroxyzine Hcl), 10 MG PO EVERY 8 HOURS PRN for Itching, ( Reported) Magnesium Hydroxide* (Milk Of Magnesia*), 30 ML ORAL DAILY PRN for Constipation, (Reported) Morphine 10mg/5ml Oral Soln* (Morphine 10mg/5ml Oral Soln*), 15 MG ORAL EVERY 12 HOURS PRN for For Pain, (Reported) Polyethylene Glycol 3350* (Polyethylene Glycol 3350*), 17 GM ORAL BEDTIME PRN for Constipation, (Reported) Tramadol Hcl* (Ultram*), 50 MG ORAL Q6H PRN for For Pain, (Reported) Zolpidem Tartrate* (Zolpidem Tartrate*), 5 MG ORAL BEDTIME PRN for Insomnia, ( Reported) Miscellaneous Medications Folic Acid/Vitamin B Comp W-C (Lia-Ramona Tablet), 1 MG PO, (Reported) Meclizine Hcl* (Meclizine*), 25 MG ORAL, (Reported) Patient History History Provided By: Patient Healthcare decision maker John botello() [phone] Resuscitation status Do Not Resuscitate Advanced Directive on File Past Medical/Surgical History Past Medical/Surgical History: (1) ETOH abuse (2) HTN (hypertension) (3) Psychiatric disorder (4) COPD (chronic obstructive pulmonary disease) (5) Seizure disorder Review of Systems Constitutional: Reports: no symptoms Eye: Reports: no symptoms ENT: Reports: no symptoms Respiratory: Reports: no symptoms, other - hx of COPD Cardiovascular: Reports: no symptoms Gastrointestinal: Reports: no symptoms Genitourinary: Reports: see HPI Musculoskeletal: Reports: no symptoms Skin: Reports: no symptoms Psychiatric: Reports: see HPI Neurological: Reports: no symptoms Endocrine: Reports: no symptoms Hematologic/Lymphatic: Reports: no symptoms Physical Exam Last 24 Hour Vital Signs Date Time Temp Pulse Resp B/P (MAP) Pulse Ox O2 Delivery O2 Flow Rate FiO2 04/18/17 12:00 97.5 99 20 123/75 94 Room Air 04/18/17 08:00 96.6 105 20 121/69 94 Room Air 04/18/17 05:00 97.3 104 18 120/73 93 Room Air 04/18/17 04:30 97.4 118 21 125/70 93 Room Air 2.0 04/18/17 04:00 97.4 118 21 125/70 93 Room Air 04/18/17 03:00 97.4 125 25 128/59 91 Nasal Cannula 2.0 04/18/17 01:05 97.3 04/18/17 00:53 97.3 98 23 137/80 93 Room Air 04/17/17 23:15 114 133/80 04/17/17 22:55 97.3 97 16 138/82 98 Room Air Intake and Output 04/18/17 04/19/17 19:00 07:00 Output Total 500 ml Balance -500 ml Output Urine Total 500 ml # Voids 1 Laboratory Tests Test 04/18/17 00:20 04/18/17 00:39 White Blood Count 10.1 K/UL (4.8-10.8) Red Blood Count 4.44 M/UL (4.70-6.10) L Hemoglobin 15.7 G/DL (14.2-18.0) Hematocrit 44.9 % (42.0-52.0) Mean Corpuscular Volume 101 FL (80-99) H Mean Corpuscular Hemoglobin 35.3 PG (27.0-31.0) H Mean Corpuscular Hemoglobin Concent 34.9 G/DL (32.0-36.0) Red Cell Distribution Width 10.7 % (11.6-14.8) L Platelet Count 259 K/UL (150-450) Mean Platelet Volume 7.9 FL (6.5-10.1) Neutrophils (%) (Auto) 71.5 % (45.0-75.0) Lymphocytes (%) (Auto) 17.5 % (20.0-45.0) L Monocytes (%) (Auto) 6.9 % (1.0-10.0) Eosinophils (%) (Auto) 3.0 % (0.0-3.0) Basophils (%) (Auto) 1.1 % (0.0-2.0) Sodium Level 141 MMOL/L (136-145) Potassium Level 3.8 MMOL/L (3.5-5.1) Chloride Level 105 MMOL/L (98-107) Carbon Dioxide Level 25 MMOL/L (21-32) Anion Gap 11 mmol/L (5-15) Blood Urea Nitrogen 16 mg/dL (7-18) Creatinine 1.1 MG/DL (0.55-1.30) Estimat Glomerular Filtration Rate > 60 mL/min (>60) Glucose Level 96 MG/DL (74-106) Calcium Level 9.1 MG/DL (8.5-10.1) Urine Color Pale yellow Urine Appearance Clear Urine pH 7 (4.5-8.0) Urine Specific [place] 1.010 (1.005-1.035) Urine Protein Negative (NEGATIVE) Urine Glucose (UA) Negative (NEGATIVE) Urine Ketones Negative (NEGATIVE) Urine Occult Blood 1+ (NEGATIVE) H Urine Nitrite Negative (NEGATIVE) Urine Bilirubin Negative (NEGATIVE) Urine Urobilinogen Normal MG/DL (0.0-1.0) Urine Leukocyte Esterase Negative (NEGATIVE) Urine RBC 0-2 /HPF (0 - 0) H Urine WBC 0-2 /HPF (0 - 0) Urine Squamous Epithelial Cells None /LPF (NONE/OCC) Urine Bacteria None /HPF (NONE) Height (Feet): 5 Height (Inches): 11.00 Weight (Pounds): 173 Medications Current Medications Medications (Trade) Dose Ordered Sig/Sharon Route PRN Reason Start Time Stop Time Status Last Admin Dose Admin Acetaminophen (Tylenol) 650 mg Q4H PRN ORAL fever 04/18/17 06:45 05/18/17 06:44 Al Hydroxide/Mg Hydroxide (Mylanta II) 30 ml Q6H PRN ORAL dyspepsia 04/18/17 06:45 05/18/17 06:44 Aspirin (ASA) 81 mg DAILY ORAL 04/18/17 09:00 05/18/17 08:59 04/18/17 09:00 Benztropine Mesylate (Cogentin) 1 mg BID ORAL 04/18/17 09:00 05/18/17 08:59 04/18/17 10:11 Carbamazepine (TEGretol) 200 mg TID ORAL 04/18/17 09:00 05/18/17 08:59 04/18/17 10:11 Chlorpromazine (Thorazine) 20 mg TID ORAL 04/18/17 09:00 05/18/17 08:59 Dextrose (Dextrose 50%) STAT PRN IV Hypoglycemia 04/18/17 06:45 05/18/17 06:44 Gabapentin (Neurontin) 300 mg EVERY 8 HOURS ORAL 04/18/17 14:00 05/18/17 13:59 Hydroxyzine HCl (Vistaril) 10 mg EVERY 8 HOURS PRN ORAL Itching 04/18/17 06:45 05/18/17 06:44 Lamotrigine (LaMICtal) 50 mg BID ORAL 04/18/17 09:00 05/18/17 08:59 04/18/17 10:11 Levetiracetam (Keppra) 500 mg EVERY 12 HOURS ORAL 04/18/17 09:00 05/18/17 08:59 04/18/17 10:11 Lorazepam (Ativan 2mg/ml 1ml) 0.5 mg Q4H PRN IV For Anxiety 04/18/17 06:45 04/25/17 06:44 Morphine Sulfate (Morphine Sulfate) 1 mg EVERY 4 HOURS PRN IVP severe pain 04/18/17 06:45 04/25/17 06:44 04/18/17 10:24 Ondansetron HCl (Zofran) 4 mg Q6H PRN IVP Nausea & Vomiting 04/18/17 06:45 05/18/17 06:44 Phenylephrine HCl 50 mg/Dextrose 250 ml @ 0 mls/hr Q24H IV 04/17/17 23:15 05/17/17 23:14 Polyethylene Glycol (Miralax) 17 gm HSPRN PRN ORAL Constipation 04/18/17 06:45 05/18/17 06:44 Quetiapine Fumarate (SEROquel) 200 mg EVERY 8 HOURS ORAL 04/18/17 14:00 05/18/17 13:59 Zolpidem Tartrate (Ambien) 5 mg HSPRN PRN ORAL Insomnia 04/18/17 06:45 04/25/17 06:44 Assessment/Plan Assessment/Plan ASSESSMENT recurrent priapism psychiatric disorder/bipoalr seizure disorder COPD Hx of polysubstance abuse ( ETOH, cocaine, meth) PLAN OF CARE [facility] floor per urologist patient needs pelvic shunt surgery patient was placed on waiting list for transfer to [facility] seizure precautions continue antiepileptic pain management O2 HHN prn psych meds currently continue Patient DNR/DNI status case discussed and evaluated by supervising physician Edgar ([facility]),Ana SIN Apr 18, 2017 14:26
--- NOTE | 2017-04-18 19:45 | History and Physical Report ---
DATE OF ADMISSION: 04/18/2017 TIME SEEN: At 9 a.m. CONSULTANTS: 1. Silvino Henley M.D. 2. Patricio Strong M.D. 3. Wing Cervantes M.D. CHIEF COMPLAINT: Priapism, psych history, chronic pain. BRIEF HISTORY: This is a 41-year-old male from [facility] presents for priapism for approximately 8 hours, came to [facility], diagnosed with the above. Dr. Henley was on-call, came in, irrigated the patient as well as gave him treatment with some improvement. This morning, he still has priapism. Currently calm in bed, slight penile pain. No complaint. REVIEW OF SYSTEMS: No chest pain. No shortness of breath. No nausea, vomiting, or diarrhea. PAST MEDICAL HISTORY: Includes hypertension, previous priapism, COPD, psych history, seizure, and chronic pain. PAST SURGICAL HISTORY: Penile shunt. MEDICATIONS: Include Neurontin, Seroquel, aspirin, Cogentin, Tegretol, Thorazine, Lamictal, Keppra, Vistaril, Tylenol, MiraLAX, morphine, Zofran, and Ambien. ALLERGIES: Depakote. SOCIAL HISTORY: No smoking. No alcohol. No intravenous drug abuse. FAMILY HISTORY: Noncontributory. PHYSICAL EXAMINATION: GENERAL: Slightly anxious in bed, oriented x3, in no acute distress. VITAL SIGNS: Temperature 96 degrees, pulse 105, respirations 20, blood pressure 121/69. CARDIOVASCULAR: No murmur. LUNGS: Distant and clear. ABDOMEN: Bowel sounds are positive. Nontender and nondistended. EXTREMITIES: No cyanosis, clubbing, or edema. NEUROLOGIC: The patient moves all extremities, slightly weak. GENITOURINARY: Penile exam, slightly bluish, pointed about 45 degrees north. LABORATORY DATA: CBC is normal. BMP is normal. Urinalysis, 1+ occult blood, otherwise normal. ASSESSMENT: 1. Priapism. 2. Hypertension. 3. Psychiatric history. 4. Seizure. 5. Chronic obstructive pulmonary disease. 6. Chronic pain. PLAN: Continue previous medications. Hold psych medications for now as per Dr. Henley's recommendation. Pain control. We will ask the charge nurse to arrange transfer [place] [facility] [place] possible pen[place] shunt fixing. We will continue to follow this patient. CBC and BMP in the morning. Curtis Gavin D.O. DR: Scar JOB#: [id number] CC:
[2017-04-19] VITALS (7 sets, daily range): BP systolic 106–125; BP diastolic 59–75
[2017-04-19] MEDS: Morphine Sulfate 2mg/ml Inj IVP PRN ×4 (03:14→19:48)
[2017-04-19] MEDS: QUEtiapine 200mg tab ORAL SCH ×3 (06:00→22:00)
[2017-04-19 07:46] LABS: BASOPHILS % (AUTO) 0.7 % (0.0-2.0); EOSINOPHILS % (AUTO) 2.6 % (0.0-3.0); LYMPHOCYTES % (AUTO) 12.8 % (20.0-45.0); MEAN CORPUSCULAR HEMOGLOBIN 35.3 PG (27.0-31.0); MEAN CORPUSCULAR HGB CONC 34.4 G/DL (32.0-36.0); MEAN CORPUSCULAR VOLUME 103 FL (80-99); MEAN PLATELET VOLUME 7.2 FL (6.5-10.1); MONOCYTES % (AUTO) 7.2 % (1.0-10.0); NEUTROPHILS % (AUTO) 76.7 % (45.0-75.0); PLATELET COUNT 251 K/UL (150-450); RED BLOOD COUNT 3.99 M/UL (4.70-6.10); RED CELL DISTRIBUTION WIDTH 11.2 % (11.6-14.8)
[2017-04-19 08:13] LABS: ALANINE AMINOTRANSFERASE 20 U/L (12-78); ALBUMIN/GLOBULIN RATIO 1.1 (1.0-2.7); ANION GAP 8 mmol/L (5-15); ASPARTATE AMINO TRANSFERASE 15 U/L (15-37); CARBON DIOXIDE 25 MMOL/L (21-32); CHLORIDE 109 MMOL/L (98-107); CHOLESTEROL 200 MG/DL (< 200); CHOLESTEROL/HDL RATIO 6.7 (3.3-4.4); CREATININE 1.1 MG/DL (0.55-1.30); GLOMERULAR FILTRATION RATE > 60 mL/min (>60); SODIUM 142 MMOL/L (136-145); THYROID STIMULATING HORMONE 2.103 uiU/mL (0.358-3.740); TOTAL PROTEIN 6.6 G/DL (6.4-8.2)
--- NOTE | 2017-04-19 08:28 | General Progress Note ---
Assessment/Plan Problem List: (1) Priapism, unspecified ICD Codes: N48.30 - Priapism, unspecified SNOMED: 662424279, 9195389 (2) Psychiatric disorder ICD Codes: F99 - Mental disorder, not otherwise specified SNOMED: 81878125, 425946703 (3) COPD (chronic obstructive pulmonary disease) ICD Codes: J44.9 - Chronic obstructive pulmonary disease, unspecified SNOMED: 59724602 (4) HTN (hypertension) ICD Codes: I10 - Essential (primary) hypertension SNOMED: 64288665 (5) Seizure disorder ICD Codes: G40.909 - Epilepsy, unspecified, not intractable, without status epilepticus SNOMED: 001273186 Status: progressing, tolerating diet Assessment/Plan pain cortrol uro f/u transfer pending id eval cbc bmp am Subjective Constitutional: Reports: weakness Allergies: Coded Allergies: DIVALPROEX SODIUM (Verified Allergy, Unknown, 04/17/17) All Systems: reviewed and negative except above Subjective sl penile pain Objective Last 24 Hour Vital Signs Date Time Temp Pulse Resp B/P (MAP) Pulse Ox O2 Delivery O2 Flow Rate FiO2 04/19/17 04:00 97.9 85 20 115/65 95 Room Air 04/18/17 23:31 97.6 83 18 130/75 96 Room Air 04/18/17 20:01 97.6 84 20 124/75 97 Room Air 04/18/17 16:00 98.2 85 20 133/75 95 Room Air 04/18/17 12:00 97.5 99 20 123/75 94 Room Air Laboratory Tests 04/19/17 05:30: White Blood Count 14.0H, Red Blood Count 3.99L, Hemoglobin 14.1L, Hematocrit 40.9L, Mean Corpuscular Volume 103H, Mean Corpuscular Hemoglobin 35.3H, Mean Corpuscular Hemoglobin Concent 34.4, Red Cell Distribution Width 11.2L, Platelet Count 251, Mean Platelet Volume 7.2, Neutrophils (%) (Auto) 76.7H, Lymphocytes (%) (Auto) 12.8L, Monocytes (%) (Auto) 7.2, Eosinophils (%) (Auto) 2.6, Basophils (%) (Auto) 0.7, Sodium Level 142, Potassium Level 4.0, Chloride Level 109H, Carbon Dioxide Level 25, Anion Gap 8, Blood Urea Nitrogen 16, Creatinine 1.1, Estimat Glomerular Filtration Rate > 60, Glucose Level 97, Calcium Level 9.0, Total Bilirubin 0.3, Aspartate Amino Transf (AST/SGOT) 15, Alanine Aminotransferase (ALT/SGPT) 20, Alkaline Phosphatase 77, Total Protein 6.6, Albumin 3.5, Globulin 3.1, Albumin/Globulin Ratio 1.1, Triglycerides Level 190H, Cholesterol Level 200, LDL Cholesterol 137H, HDL Cholesterol 30L, Cholesterol/HDL Ratio 6.7H, Thyroid Stimulating Hormone (TSH) 2.103 Height (Feet): 5 Height (Inches): 11.00 Weight (Pounds): 173 General Appearance: alert EENT: normal ENT inspection Neck: normal alignment Cardiovascular: normal peripheral pulses, normal rate, regular rhythm Respiratory/Chest: chest wall non-tender, lungs clear, normal breath sounds Abdomen: normal bowel sounds, non tender, soft Extremities: normal inspection Edema: no edema noted Arm (L), no edema noted Arm (R), no edema noted Leg (L), no edema noted Leg (R), no edema noted Pedal (L), no edema noted Pedal (R), no edema noted Generalized Neurologic: motor weakness Skin: normal pigmentation, warm/dry Objective penile erect approx 90%, JUAN FROST Apr 19, 2017 08:28
[2017-04-19] MEDS: chlorproMAZINE 10mg tab ORAL SCH ×3 (09:00→17:46)
[2017-04-19] MEDS: Aspirin Baby 81mg ORAL SCH (09:05)
[2017-04-19] MEDS: Benztropine 1mg tab ORAL SCH ×2 (09:05→17:45)
[2017-04-19] MEDS: carBAMazepine 200mg tab ORAL SCH ×3 (09:05→17:45)
--- NOTE | 2017-04-19 13:22 | Pulmonology Progress Note ---
Assessment/Plan Assessment/Plan ASSESSMENT recurrent priapism psychiatric disorder/bipolar leukocytosis mixed hyperlipidemia seizure disorder COPD Hx of polysubstance abuse ( ETOH, cocaine, meth) PLAN OF CARE [facility] floor per urologist patient needs pelvic shunt surgery patient was placed on waiting list for transfer to [facility] leukocytosis today, likely reactive, UA negative ID consult pending lipid panel with elevated TG and LDL, will add Fish oil pt reluctant to start other medications /statin clinical mental health counselor on therapeutic life style changes repeat lipid panel in 3 months if still elevated will need medical management seizure precautions continue current antiepileptic regimen pain management O2 HHN prn psych meds currently continue clinical mental health counselor on abstinence form street drugs Patient DNR/DNI status case discussed and evaluated by supervising physician Subjective Allergies: Coded Allergies: DIVALPROEX SODIUM (Verified Allergy, Unknown, 04/17/17) Subjective leukocytosis today , afebrile persistent priapism awaiting for transfer Objective Last 24 Hour Vital Signs Date Time Temp Pulse Resp B/P (MAP) Pulse Ox O2 Delivery O2 Flow Rate FiO2 04/19/17 09:31 95 Room Air 04/19/17 08:53 98.1 95 15 113/73 95 Room Air 04/19/17 04:00 97.9 85 20 115/65 95 Room Air 04/18/17 23:31 97.6 83 18 130/75 96 Room Air 04/18/17 20:01 97.6 84 20 124/75 97 Room Air 04/18/17 16:00 98.2 85 20 133/75 95 Room Air Objective GENERAL: TMiddle-aged man, awake, alert, oriented x4, in nNAD HEENT: NC/AT. EOMI. NECK: Supple. Oropharynx clear.MMM CHEST: CTAB HEART: S1S2, RRR, no peripheral edema ABDOMEN: Soft, flat, nontender, and nondistended.+ BS x 4 quadrants NEUROLOGIC: Grossly nonfocal.A/A/O x 4, motor strength 5/5 BUE and BLE GENITOURINARY: Priapistic painful erection , bilateral descended testis with no masses or tenderness to palpation. Laboratory Tests 04/19/17 05:30: White Blood Count 14.0H, Red Blood Count 3.99L, Hemoglobin 14.1L, Hematocrit 40.9L, Mean Corpuscular Volume 103H, Mean Corpuscular Hemoglobin 35.3H, Mean Corpuscular Hemoglobin Concent 34.4, Red Cell Distribution Width 11.2L, Platelet Count 251, Mean Platelet Volume 7.2, Neutrophils (%) (Auto) 76.7H, Lymphocytes (%) (Auto) 12.8L, Monocytes (%) (Auto) 7.2, Eosinophils (%) (Auto) 2.6, Basophils (%) (Auto) 0.7, Sodium Level 142, Potassium Level 4.0, Chloride Level 109H, Carbon Dioxide Level 25, Anion Gap 8, Blood Urea Nitrogen 16, Creatinine 1.1, Estimat Glomerular Filtration Rate > 60, Glucose Level 97, Calcium Level 9.0, Total Bilirubin 0.3, Aspartate Amino Transf (AST/SGOT) 15, Alanine Aminotransferase (ALT/SGPT) 20, Alkaline Phosphatase 77, Total Protein 6.6, Albumin 3.5, Globulin 3.1, Albumin/Globulin Ratio 1.1, Triglycerides Level 190H, Cholesterol Level 200, LDL Cholesterol 137H, HDL Cholesterol 30L, Cholesterol/HDL Ratio 6.7H, Thyroid Stimulating Hormone (TSH) 2.103 Current Medications Medications (Trade) Dose Ordered Sig/Sharon Route PRN Reason Start Time Stop Time Status Last Admin Dose Admin Acetaminophen (Tylenol) 650 mg Q4H PRN ORAL fever 04/18/17 06:45 05/18/17 06:44 Al Hydroxide/Mg Hydroxide (Mylanta II) 30 ml Q6H PRN ORAL dyspepsia 04/18/17 06:45 05/18/17 06:44 Aspirin (ASA) 81 mg DAILY ORAL 04/18/17 09:00 05/18/17 08:59 04/19/17 09:05 Benztropine Mesylate (Cogentin) 1 mg BID ORAL 04/18/17 09:00 05/18/17 08:59 04/19/17 09:05 Carbamazepine (TEGretol) 200 mg TID ORAL 04/18/17 09:00 05/18/17 08:59 04/19/17 12:12 Chlorpromazine (Thorazine) 20 mg TID ORAL 04/18/17 09:00 05/18/17 08:59 Dextrose (Dextrose 50%) STAT PRN IV Hypoglycemia 04/18/17 06:45 05/18/17 06:44 Gabapentin (Neurontin) 300 mg EVERY 8 HOURS ORAL 04/18/17 14:00 05/18/17 13:59 04/19/17 12:12 Hydroxyzine HCl (Vistaril) 10 mg EVERY 8 HOURS PRN ORAL Itching 04/18/17 06:45 05/18/17 06:44 Lamotrigine (LaMICtal) 50 mg BID ORAL 04/18/17 09:00 05/18/17 08:59 04/19/17 09:06 Levetiracetam (Keppra) 500 mg EVERY 12 HOURS ORAL 04/18/17 09:00 05/18/17 08:59 04/19/17 09:05 Lorazepam (Ativan 2mg/ml 1ml) 0.5 mg Q4H PRN IV For Anxiety 04/18/17 06:45 04/25/17 06:44 Morphine Sulfate (Morphine Sulfate) 1 mg EVERY 4 HOURS PRN IVP severe pain 04/18/17 06:45 04/25/17 06:44 04/19/17 09:06 Ondansetron HCl (Zofran) 4 mg Q6H PRN IVP Nausea & Vomiting 04/18/17 06:45 05/18/17 06:44 Polyethylene Glycol (Miralax) 17 gm HSPRN PRN ORAL Constipation 04/18/17 06:45 05/18/17 06:44 Quetiapine Fumarate (SEROquel) 200 mg EVERY 8 HOURS ORAL 04/18/17 14:00 05/18/17 13:59 Zolpidem Tartrate (Ambien) 5 mg HSPRN PRN ORAL Insomnia 04/18/17 06:45 04/25/17 06:44 Ana Hernández NP (Vanchtein) Apr 19, 2017 13:22
--- NOTE | 2017-04-19 19:00 | Consultation ---
DATE OF CONSULTATION: 04/19/2017 INFECTIOUS DISEASE CONSULTATION CONSULTING PHYSICIAN: Felix Hernandez M.D. PRIMARY ATTENDING PHYSICIAN: Curtis Gavin D.O. REASON FOR CONSULTATION: Leukocytosis. HISTORY OF PRESENT ILLNESS: This is a 41-year-old white male, who is a [facility] resident, admitted yesterday for painful erection for 17 hours. He was diagnosed with priapism and had a procedure to relieve the condition at bedside that according to the patient was not successful and is still complaining of painful erection and has also dysuria. PAST MEDICAL HISTORY: Significant for schizoaffective bipolar-type disorder, COPD, history of head trauma and seizure disorder, history of alcohol abuse, and is an active smoker. MEDICATIONS: Neurontin, Seroquel, benztropine, carbamazepine, Lamictal, Keppra, hydroxyzine, morphine, Ambien, and Mylanta. ALLERGIES: Allergic to Depakote. SOCIAL HISTORY: longterm resident. Smoking one pack of cigarettes a day. He has history of alcohol abuse in the past. He is single. REVIEW OF SYSTEMS: As in history of present illness. No fever. No chills. No coughing. No nausea. No vomiting. PHYSICAL EXAMINATION: VITAL SIGNS: Temperature 98.1, pulse 95, and blood pressure 113/73. GENERAL APPEARANCE: No acute distress. HEAD AND NECK: He has no teeth. No oral lesion. HEART: S1, S2. Regular. LUNGS: Clear. ABDOMEN: Soft, nontender. GENITOURINARY: He has hard erection of the penis. There are some bruises, skin discoloration at the base of penis. NEUROLOGIC: He is awake, alert, and oriented x3. LABORATORY AND DIAGNOSTIC DATA: Sodium 142, potassium 4, chloride 105, bicarbonate 25, BUN 16, creatinine 1.1, and glucose 97. WBC 14, hemoglobin 14.1, hematocrit 40.9, and platelets 251,000. UA was negative for WBC and nitrite. IMPRESSION: Leukocytosis, may be reactive. The patient has priapism, has history of chronic obstructive pulmonary disease, nicotine dependence, seizure disorder, and schizoaffective. RECOMMENDATION: We will follow up the CBC. Observe off antibiotic for now. At the end of my exam, I thank Dr. Curtis Gavin for involving me in the care of this patient. Felix Hernandez M.D. DR: Timmy JOB#: [id number] CC:
[2017-04-20] MEDS: Morphine Sulfate 2mg/ml Inj IVP PRN ×5 (00:01→17:20)
[2017-04-20 04:00] VITALS: BP 105/69
[2017-04-20] MEDS: QUEtiapine 200mg tab ORAL SCH ×2 (06:00→13:12)
[2017-04-20 07:11] LABS: BASOPHILS % (AUTO) 0.6 % (0.0-2.0); EOSINOPHILS % (AUTO) 2.5 % (0.0-3.0); LYMPHOCYTES % (AUTO) 14.2 % (20.0-45.0); MEAN CORPUSCULAR HEMOGLOBIN 35.5 PG (27.0-31.0); MEAN CORPUSCULAR HGB CONC 34.9 G/DL (32.0-36.0); MEAN CORPUSCULAR VOLUME 102 FL (80-99); MEAN PLATELET VOLUME 7.6 FL (6.5-10.1); MONOCYTES % (AUTO) 8.8 % (1.0-10.0); NEUTROPHILS % (AUTO) 73.8 % (45.0-75.0); PLATELET COUNT 244 K/UL (150-450); RED BLOOD COUNT 3.88 M/UL (4.70-6.10); RED CELL DISTRIBUTION WIDTH 10.9 % (11.6-14.8); WHITE BLOOD COUNT 12.5 K/UL (4.8-10.8)
[2017-04-20 07:21] LABS: ANION GAP 7 mmol/L (5-15); CALCIUM 9.1 MG/DL (8.5-10.1); CARBON DIOXIDE 26 MMOL/L (21-32); CHLORIDE 106 MMOL/L (98-107); CREATININE 0.9 MG/DL (0.55-1.30); GLOMERULAR FILTRATION RATE > 60 mL/min (>60); SODIUM 139 MMOL/L (136-145)
[2017-04-20 08:00] VITALS: BP 111/67
[2017-04-20] MEDS: Benztropine 1mg tab ORAL SCH ×2 (09:00→17:23)
[2017-04-20] MEDS: chlorproMAZINE 10mg tab ORAL SCH (09:00)
[2017-04-20] MEDS: Aspirin Baby 81mg ORAL SCH (09:15)
[2017-04-20] MEDS: carBAMazepine 200mg tab ORAL SCH ×3 (09:15→17:19)
--- NOTE | 2017-04-20 10:02 | Infectious Diseases Prog Note ---
Assessment/Plan Assessment/Plan A; Leukocytosis reactive Priapism Nicotine dependence Peripheral neuropathy P; observe off antibiotics Subjective ROS Limited/Unobtainable: No Constitutional: Reports: no symptoms Respiratory: Reports: no symptoms Cardiovascular: Reports: no symptoms Gastrointestinal/Abdominal: Reports: no symptoms Genitourinary: Reports: other - painful erction Allergies: Coded Allergies: DIVALPROEX SODIUM (Verified Allergy, Unknown, 04/17/17) Objective Vital Signs Last 24 Hour Vital Signs Date Time Temp Pulse Resp B/P (MAP) Pulse Ox O2 Delivery O2 Flow Rate FiO2 04/20/17 08:00 97.2 83 17 111/67 98 Room Air 04/20/17 04:00 98.1 90 18 105/69 96 04/19/17 23:54 98.4 84 18 115/64 96 04/19/17 19:55 99.0 90 18 125/75 96 04/19/17 16:37 98.2 92 20 106/59 97 Room Air 04/19/17 13:25 98.8 84 20 111/73 95 Room Air 04/19/17 12:00 98.8 84 20 111/73 96 Height (Feet): 5 Height (Inches): 11.00 Weight (Pounds): 173 General Appearance: no acute distress HEENT: mucous membranes moist Respiratory/Chest: normal breath sounds Cardiovascular: normal rate Abdomen: soft, non tender Genitourinary: other - priapism, bruise in base of penis Extremities: no edema Neurologic/Psychiatric: alert, responsive, other - weakness in legs Microbiology Date/Time Source Procedure Growth Status 04/18/17 03:44 Nasal Nares MRSA Culture - Final NO METHICILLIN RESISTANT STAPH AUREUS... Complete 04/18/17 03:44 Rectum VRE Culture - Final NO VANCOMYCIN RESISTANT ENTEROCOCCUS ... Complete Laboratory Tests Test 04/20/17 04:50 White Blood Count 12.5 K/UL (4.8-10.8) H Red Blood Count 3.88 M/UL (4.70-6.10) L Hemoglobin 13.8 G/DL (14.2-18.0) L Hematocrit 39.4 % (42.0-52.0) L Mean Corpuscular Volume 102 FL (80-99) H Mean Corpuscular Hemoglobin 35.5 PG (27.0-31.0) H Mean Corpuscular Hemoglobin Concent 34.9 G/DL (32.0-36.0) Red Cell Distribution Width 10.9 % (11.6-14.8) L Platelet Count 244 K/UL (150-450) Mean Platelet Volume 7.6 FL (6.5-10.1) Neutrophils (%) (Auto) 73.8 % (45.0-75.0) Lymphocytes (%) (Auto) 14.2 % (20.0-45.0) L Monocytes (%) (Auto) 8.8 % (1.0-10.0) Eosinophils (%) (Auto) 2.5 % (0.0-3.0) Basophils (%) (Auto) 0.6 % (0.0-2.0) Sodium Level 139 MMOL/L (136-145) Potassium Level 4.0 MMOL/L (3.5-5.1) Chloride Level 106 MMOL/L (98-107) Carbon Dioxide Level 26 MMOL/L (21-32) Anion Gap 7 mmol/L (5-15) Blood Urea Nitrogen 13 mg/dL (7-18) Creatinine 0.9 MG/DL (0.55-1.30) Estimat Glomerular Filtration Rate > 60 mL/min (>60) Glucose Level 98 MG/DL (74-106) Calcium Level 9.1 MG/DL (8.5-10.1) Current Medications Medications (Trade) Dose Ordered Sig/Sharon Route PRN Reason Start Time Stop Time Status Last Admin Dose Admin Acetaminophen (Tylenol) 650 mg Q4H PRN ORAL fever 04/18/17 06:45 05/18/17 06:44 Al Hydroxide/Mg Hydroxide (Mylanta II) 30 ml Q6H PRN ORAL dyspepsia 04/18/17 06:45 05/18/17 06:44 Aspirin (ASA) 81 mg DAILY ORAL 04/18/17 09:00 05/18/17 08:59 04/20/17 09:15 Benztropine Mesylate (Cogentin) 1 mg BID ORAL 04/18/17 09:00 05/18/17 08:59 04/19/17 17:45 Carbamazepine (TEGretol) 200 mg TID ORAL 04/18/17 09:00 05/18/17 08:59 04/20/17 09:15 Chlorpromazine (Thorazine) 20 mg TID ORAL 04/18/17 09:00 05/18/17 08:59 Dextrose (Dextrose 50%) STAT PRN IV Hypoglycemia 04/18/17 06:45 05/18/17 06:44 Gabapentin (Neurontin) 300 mg EVERY 8 HOURS ORAL 04/18/17 14:00 05/18/17 13:59 04/20/17 06:05 Hydroxyzine HCl (Vistaril) 10 mg EVERY 8 HOURS PRN ORAL Itching 04/18/17 06:45 05/18/17 06:44 Lamotrigine (LaMICtal) 50 mg BID ORAL 04/18/17 09:00 05/18/17 08:59 04/20/17 09:16 Levetiracetam (Keppra) 500 mg EVERY 12 HOURS ORAL 04/18/17 09:00 05/18/17 08:59 04/20/17 09:15 Lorazepam (Ativan 2mg/ml 1ml) 0.5 mg Q4H PRN IV For Anxiety 04/18/17 06:45 04/25/17 06:44 Morphine Sulfate (Morphine Sulfate) 1 mg EVERY 4 HOURS PRN IVP severe pain 04/18/17 06:45 04/25/17 06:44 04/20/17 09:16 Ondansetron HCl (Zofran) 4 mg Q6H PRN IVP Nausea & Vomiting 04/18/17 06:45 05/18/17 06:44 Polyethylene Glycol (Miralax) 17 gm HSPRN PRN ORAL Constipation 04/18/17 06:45 05/18/17 06:44 Quetiapine Fumarate (SEROquel) 200 mg EVERY 8 HOURS ORAL 04/18/17 14:00 05/18/17 13:59 Zolpidem Tartrate (Ambien) 5 mg HSPRN PRN ORAL Insomnia 04/18/17 06:45 04/25/17 06:44 AMANDA OG Apr 20, 2017 10:02
[2017-04-20 12:00] VITALS: BP 129/59
[2017-04-20] MEDS ORDERED: LORazepam 1mg tab ORAL PRN (12:15)
--- NOTE | 2017-04-20 13:34 | General Progress Note ---
Assessment/Plan Problem List: (1) Priapism, unspecified ICD Codes: N48.30 - Priapism, unspecified SNOMED: 830076202, 2623587 (2) Psychiatric disorder ICD Codes: F99 - Mental disorder, not otherwise specified SNOMED: 52016048, 084094752 (3) COPD (chronic obstructive pulmonary disease) ICD Codes: J44.9 - Chronic obstructive pulmonary disease, unspecified SNOMED: 73854676 (4) HTN (hypertension) ICD Codes: I10 - Essential (primary) hypertension SNOMED: 83375334 (5) Seizure disorder ICD Codes: G40.909 - Epilepsy, unspecified, not intractable, without status epilepticus SNOMED: 569121309 Status: stable, progressing, tolerating diet Assessment/Plan pain control uro f/u vs transfer cbc bmp am Subjective Constitutional: Reports: weakness Allergies: Coded Allergies: CHLORPROMAZINE (Verified Allergy, Unknown, 04/20/17) DIVALPROEX SODIUM (Verified Allergy, Unknown, 04/17/17) All Systems: reviewed and negative except above Subjective sl penile pain Objective Last 24 Hour Vital Signs Date Time Temp Pulse Resp B/P (MAP) Pulse Ox O2 Delivery O2 Flow Rate FiO2 04/20/17 12:00 97.3 86 18 129/59 97 Room Air 04/20/17 09:46 98.1 04/20/17 08:00 97.2 83 17 111/67 98 Room Air 04/20/17 04:00 98.1 90 18 105/69 96 04/19/17 23:54 98.4 84 18 115/64 96 04/19/17 19:55 99.0 90 18 125/75 96 04/19/17 16:37 98.2 92 20 106/59 97 Room Air Intake and Output 04/20/17 04/21/17 19:00 07:00 Intake Total 250 ml Balance 250 ml Intake Oral 250 ml Laboratory Tests 04/20/17 04:50: White Blood Count 12.5H, Red Blood Count 3.88L, Hemoglobin 13.8L, Hematocrit 39.4L, Mean Corpuscular Volume 102H, Mean Corpuscular Hemoglobin 35.5H, Mean Corpuscular Hemoglobin Concent 34.9, Red Cell Distribution Width 10.9L, Platelet Count 244, Mean Platelet Volume 7.6, Neutrophils (%) (Auto) 73.8, Lymphocytes (%) (Auto) 14.2L, Monocytes (%) (Auto) 8.8, Eosinophils (%) (Auto) 2.5, Basophils (%) (Auto) 0.6, Sodium Level 139, Potassium Level 4.0, Chloride Level 106, Carbon Dioxide Level 26, Anion Gap 7, Blood Urea Nitrogen 13, Creatinine 0.9, Estimat Glomerular Filtration Rate > 60, Glucose Level 98, Calcium Level 9.1 Height (Feet): 5 Height (Inches): 11.00 Weight (Pounds): 173 General Appearance: alert EENT: normal ENT inspection Neck: normal alignment Cardiovascular: normal peripheral pulses, normal rate, regular rhythm Respiratory/Chest: chest wall non-tender, lungs clear, normal breath sounds Abdomen: normal bowel sounds, non tender, soft Extremities: normal inspection Neurologic: responsive, motor weakness Skin: normal pigmentation, warm/dry Objective penile erect approx 90 degrees, JUAN FROST Apr 20, 2017 13:34
[2017-04-20 16:00] VITALS: BP 130/64
--- NOTE | 2017-04-20 16:41 | Pulmonology Progress Note ---
Assessment/Plan Problems: (1) Priapism, unspecified (2) HTN (hypertension) (3) Seizure disorder (4) Psychiatric disorder (5) care home resident Assessment/Plan awaiting second opinion symptomatic treatment all notes and meds reviewed. Subjective ROS Limited/Unobtainable: No Interval Events: maybe minimal decrease in erection Constitutional: Reports: no symptoms HEENT: Repors: no symptoms Respiratory: Reports: no symptoms Allergies: Coded Allergies: CHLORPROMAZINE (Verified Allergy, Unknown, 04/20/17) DIVALPROEX SODIUM (Verified Allergy, Unknown, 04/17/17) Objective Last 24 Hour Vital Signs Date Time Temp Pulse Resp B/P (MAP) Pulse Ox O2 Delivery O2 Flow Rate FiO2 04/20/17 13:44 98.1 04/20/17 12:00 97.3 86 18 129/59 97 Room Air 04/20/17 08:00 97.2 83 17 111/67 98 Room Air 04/20/17 04:00 98.1 90 18 105/69 96 04/19/17 23:54 98.4 84 18 115/64 96 04/19/17 19:55 99.0 90 18 125/75 96 Intake and Output 04/20/17 04/21/17 19:00 07:00 Intake Total 250 ml Balance 250 ml Intake Oral 250 ml General Appearance: WD/WN HEENT: normocephalic, atraumatic Respiratory/Chest: chest wall non-tender, lungs clear Cardiovascular: normal peripheral pulses, normal rate Abdomen: normal bowel sounds, no organomegaly Genitourinary: normal external genitalia Extremities: no clubbing Skin: no lesions Microbiology Date/Time Source Procedure Growth Status 04/18/17 03:44 Nasal Nares MRSA Culture - Final NO METHICILLIN RESISTANT STAPH AUREUS... Complete 04/18/17 03:44 Rectum VRE Culture - Final NO VANCOMYCIN RESISTANT ENTEROCOCCUS ... Complete Laboratory Tests 04/20/17 04:50: White Blood Count 12.5H, Red Blood Count 3.88L, Hemoglobin 13.8L, Hematocrit 39.4L, Mean Corpuscular Volume 102H, Mean Corpuscular Hemoglobin 35.5H, Mean Corpuscular Hemoglobin Concent 34.9, Red Cell Distribution Width 10.9L, Platelet Count 244, Mean Platelet Volume 7.6, Neutrophils (%) (Auto) 73.8, Lymphocytes (%) (Auto) 14.2L, Monocytes (%) (Auto) 8.8, Eosinophils (%) (Auto) 2.5, Basophils (%) (Auto) 0.6, Sodium Level 139, Potassium Level 4.0, Chloride Level 106, Carbon Dioxide Level 26, Anion Gap 7, Blood Urea Nitrogen 13, Creatinine 0.9, Estimat Glomerular Filtration Rate > 60, Glucose Level 98, Calcium Level 9.1 Current Medications Medications (Trade) Dose Ordered Sig/Sharon Route PRN Reason Start Time Stop Time Status Last Admin Dose Admin Acetaminophen (Tylenol) 650 mg Q4H PRN ORAL fever 04/18/17 06:45 05/18/17 06:44 Al Hydroxide/Mg Hydroxide (Mylanta II) 30 ml Q6H PRN ORAL dyspepsia 04/18/17 06:45 05/18/17 06:44 Aspirin (ASA) 81 mg DAILY ORAL 04/18/17 09:00 05/18/17 08:59 04/20/17 09:15 Benztropine Mesylate (Cogentin) 1 mg BID ORAL 04/18/17 09:00 05/18/17 08:59 04/19/17 17:45 Carbamazepine (TEGretol) 200 mg TID ORAL 04/18/17 09:00 05/18/17 08:59 04/20/17 13:13 Chlorpromazine (Thorazine) 25 mg TID ONCE ORAL 04/20/17 18:00 04/20/17 18:01 UNV Dextrose (Dextrose 50%) STAT PRN IV Hypoglycemia 04/18/17 06:45 05/18/17 06:44 Gabapentin (Neurontin) 300 mg EVERY 8 HOURS ORAL 04/18/17 14:00 05/18/17 13:59 04/20/17 14:41 Hydroxyzine HCl (Vistaril) 10 mg EVERY 8 HOURS PRN ORAL Itching 04/18/17 06:45 05/18/17 06:44 Lamotrigine (LaMICtal) 50 mg BID ORAL 04/18/17 09:00 05/18/17 08:59 04/20/17 09:16 Levetiracetam (Keppra) 500 mg EVERY 12 HOURS ORAL 04/18/17 09:00 05/18/17 08:59 04/20/17 09:15 Lorazepam (Ativan) 1 mg Q6H PRN ORAL For Anxiety 04/20/17 12:15 04/27/17 12:14 Morphine Sulfate (Morphine Sulfate) 1 mg EVERY 4 HOURS PRN IVP severe pain 04/18/17 06:45 04/25/17 06:44 04/20/17 13:14 Ondansetron HCl (Zofran) 4 mg Q6H PRN IVP Nausea & Vomiting 04/18/17 06:45 05/18/17 06:44 Polyethylene Glycol (Miralax) 17 gm HSPRN PRN ORAL Constipation 04/18/17 06:45 05/18/17 06:44 Quetiapine Fumarate (SEROquel) 200 mg EVERY 8 HOURS ORAL 04/18/17 14:00 05/18/17 13:59 04/20/17 13:12 Zolpidem Tartrate (Ambien) 5 mg HSPRN PRN ORAL Insomnia 04/18/17 06:45 04/25/17 06:44 JJ YUNG Apr 20, 2017 16:41
[2017-04-20] MEDS ORDERED: chlorproMAZINE 25mg tab ORAL ONE (18:00)
[2017-04-20] MEDS ORDERED: ACETAMINOPHEN325 M1 ORAL (18:22)
[2017-04-20] MEDS ORDERED: MYLANTA II30 ML PO (18:25)
[2017-04-20] MEDS ORDERED: ATIVAN1 MG ORAL (18:29)
[2017-04-20] MEDS ORDERED: ZOFRAN4 M3 ORAL (18:34)
[2017-04-20 20:07] VITALS: BP 119/73
--- NOTE | 2017-04-20 22:58 | Consultation ---
History of Present Illness General Date patient seen: Apr 19, 2017 Chief Complaint: Male Urogenital Problems Referring physician: dr Gavin Reason for Consultation: in hospital management Present Illness HPI 41-year-old white male, who is a assisted resident, admitted for painful erection for 17 hours. He was diagnosed with priapism and had a procedure to relieve the condition at bedside the pt has hx of schizoaffective d/o and stated that he has been on thorazine and traadone. the pt requested to go back on those meds. the pt is illogical Allergies: Coded Allergies: CHLORPROMAZINE (Verified Allergy, Unknown, 04/20/17) DIVALPROEX SODIUM (Verified Allergy, Unknown, 04/17/17) Medication History Scheduled Aspirin* (Aspirin*), 81 MG ORAL DAILY, (Reported) Benztropine Mesylate* (Benztropine Mesylate*), 1 MG PO BID, (Reported) Carbamazepine (Tegretol*), 200 MG PO TID, (Reported) Chlorpromazine Hcl (Chlorpromazine Hcl), 20 MG PO TID, (Reported) Docusate Sodium* (Colace*), 100 MG ORAL DAILY, (Reported) Folic Acid* (Folic Acid*), 1 MG ORAL DAILY, (Reported) Gabapentin* (Gabapentin*), 300 MG ORAL EVERY 8 HOURS, (Reported) Lamotrigine* (Lamictal*), 50 MG ORAL BID, (Reported) Levetiracetam (Keppra), 500 MG ORAL EVERY 12 HOURS, (Reported) Levetiracetam* (Levetiracetam*), 1,500 MG ORAL TWICE A DAY, (Reported) Morphine HCl (Morphine Sulfate ER), 15 MG ORAL DAILY, (Reported) Multivitamin (Multi Vitamin Daily), 1 TAB ORAL DAILY, (Reported) Nicotine 14MG Patch* (Nicoderm Cq 14MG*), 1 EACH TD DAILY, (Reported) Quetiapine Fumarate* (Seroquel*), 200 MG ORAL EVERY 8 HOURS, (Reported) Ziprasidone Hcl* (Geodon*), 80 MG ORAL TWICE A DAY, (Reported) Scheduled PRN Acetaminophen* (Acetaminophen 325MG Tablet*), 650 MG ORAL Q4H PRN for Fever/ Headache/Mild Pain, (Reported) Al Hydroxide/mg Hydroxide (Mag-Al Plus Suspension), 30 ML PO Q6HR PRN for prn, ( Reported) Albuterol Sulfate (Ventolin Hfa), 2 PUFFS INH EVERY 6 HOURS PRN for Shortness of Breath, (Reported) Hydroxyzine Hcl (Hydroxyzine Hcl), 10 MG PO EVERY 8 HOURS PRN for Itching, ( Reported) Lorazepam* (Ativan*), 1 MG ORAL Q6HR PRN for prn, (Reported) Morphine 10mg/5ml Oral Soln* (Morphine 10mg/5ml Oral Soln*), 15 MG ORAL EVERY 12 HOURS PRN for For Pain, (Reported) Ondansetron* (Zofran*), 4 MG ORAL Q6H PRN for Nausea & Vomiting, (Reported) Polyethylene Glycol 3350* (Polyethylene Glycol 3350*), 17 GM ORAL BEDTIME PRN for Constipation, (Reported) Tramadol Hcl* (Ultram*), 50 MG ORAL Q6H PRN for For Pain, (Reported) Zolpidem Tartrate* (Zolpidem Tartrate*), 5 MG ORAL BEDTIME PRN for Insomnia, ( Reported) Miscellaneous Medications Folic Acid/Vitamin B Comp W-C (Lia-Ramona Tablet), 1 MG PO, (Reported) Meclizine Hcl* (Meclizine*), 25 MG ORAL, (Reported) Discontinued Medications Acetaminophen* (Acetaminophen*), 27 MG ORAL Q4HR PRN for For Pain, (Reported) Discontinued Reason: MD discontinued med Benztropine Mesylate (Cogentin), 2 MG PO BID, (Reported) Discontinued Reason: MD discontinued med Carbamazepine* (Carbamazepine*), 300 MG ORAL EVERY 8 HOURS, (Reported) Discontinued Reason: MD discontinued med Levetiracetam (Levetiracetam), 750 MG ORAL BID, (Reported) Discontinued Reason: MD discontinued med Lorazepam* (Ativan*), 1 MG IM Q6HR, (Reported) Discontinued Reason: MD discontinued med Magnesium Hydroxide* (Milk Of Magnesia*), 30 ML ORAL DAILY PRN for Constipation, (Reported) Discontinued Reason: MD discontinued med Polyethylene Glycol 3350* (Miralax*), 17 GM ORAL DAILY, (Reported) Discontinued Reason: MD discontinued med Patient History History Provided By: Patient, Medical Record, PMD Healthcare decision maker John shah) [phone] Resuscitation status Do Not Resuscitate Advanced Directive on File Past Medical/Surgical History Past Medical/Surgical History: (1) Hypoxia (2) Epilepsia (3) SOB (shortness of breath) (4) Chronic pain (5) Uncontrolled seizures (6) Recurrent knee pain (7) chronic pain syndrom with drug seeking behavior (8) 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, exacerbation (14) Hip pain (15) Fall (16) COPD (chronic obstructive pulmonary disease) (17) Psychiatric disorder (18) Seizure disorder (19) HTN (hypertension) (20) ETOH abuse Review of Systems Psychiatric: Reports: prior hx, anxiety, depressed feelings, emotional problems Physical Exam General Appearance: no apparent distress, alert, thin Neurologic: alert, oriented x 3, responsive, normal mood/affect Last 24 Hour Vital Signs Date Time Temp Pulse Resp B/P (MAP) Pulse Ox O2 Delivery O2 Flow Rate FiO2 04/20/17 20:07 98.1 72 18 119/73 97 04/20/17 17:50 98.1 04/20/17 16:00 98.0 80 18 130/64 97 Room Air 04/20/17 12:00 97.3 86 18 129/59 97 Room Air 04/20/17 08:00 97.2 83 17 111/67 98 Room Air 04/20/17 04:00 98.1 90 18 105/69 96 04/19/17 23:54 98.4 84 18 115/64 96 Intake and Output 04/20/17 04/21/17 19:00 07:00 Intake Total 490 ml Balance 490 ml Intake Oral 490 ml # Voids 3 Laboratory Tests Test 04/20/17 04:50 White Blood Count 12.5 K/UL (4.8-10.8) H Red Blood Count 3.88 M/UL (4.70-6.10) L Hemoglobin 13.8 G/DL (14.2-18.0) L Hematocrit 39.4 % (42.0-52.0) L Mean Corpuscular Volume 102 FL (80-99) H Mean Corpuscular Hemoglobin 35.5 PG (27.0-31.0) H Mean Corpuscular Hemoglobin Concent 34.9 G/DL (32.0-36.0) Red Cell Distribution Width 10.9 % (11.6-14.8) L Platelet Count 244 K/UL (150-450) Mean Platelet Volume 7.6 FL (6.5-10.1) Neutrophils (%) (Auto) 73.8 % (45.0-75.0) Lymphocytes (%) (Auto) 14.2 % (20.0-45.0) L Monocytes (%) (Auto) 8.8 % (1.0-10.0) Eosinophils (%) (Auto) 2.5 % (0.0-3.0) Basophils (%) (Auto) 0.6 % (0.0-2.0) Sodium Level 139 MMOL/L (136-145) Potassium Level 4.0 MMOL/L (3.5-5.1) Chloride Level 106 MMOL/L (98-107) Carbon Dioxide Level 26 MMOL/L (21-32) Anion Gap 7 mmol/L (5-15) Blood Urea Nitrogen 13 mg/dL (7-18) Creatinine 0.9 MG/DL (0.55-1.30) Estimat Glomerular Filtration Rate > 60 mL/min (>60) Glucose Level 98 MG/DL (74-106) Calcium Level 9.1 MG/DL (8.5-10.1) Height (Feet): 5 Height (Inches): 11.00 Weight (Pounds): 173 Assessment/Plan Status: stable, progressing Assessment/Plan schizoaffective restarted seroquel only educated the pt pt doesn't agree with not taking trazodonMonica Charles M.D. Apr 20, 2017 22:58
--- NOTE | 2017-04-21 07:46 | Consultation ---
DATE OF CONSULTATION: 04/20/2017 NOTE: VERY POOR AUDIO CONSULTING PHYSICIAN: Wing Cervantes M.D. REFERRING PHYSICIAN: Curtis Gavin D.O. HISTORY OF PRESENT ILLNESS: This is a 41-year-old male patient who is admitted to [facility]. He has a diagnosis of bipolar 2, multiple psychiatric admissions. He was treated with mood stabilizers with psychotropic medications and still angry and irritable. He states the jail . ALLERGIES: No known drug allergies. SUBSTANCE ABUSE HISTORY: Denies any recent drug or alcohol use. PSYCHIATRIC HISTORY: Diagnosis of bipolar 2, posttraumatic stress disorder, multiple psychiatric admissions. SOCIAL HISTORY: Financially supported by [employer] and Medicare. PAST MEDICAL HISTORY: Priapism, seizure disorder, neuropathy, difficulty with ambulation. Please see Internal Medicine note for further details. MENTAL STATUS EXAMINATION: This is a 41-year-old male with psychomotor agitation. Mood is irritable and agitated. Affect guarded and restricted. Thought process is disorganized and illogical. Denies any current suicidal or homicidal thoughts. Insight and judgment is poor. DIAGNOSIS: Bipolar 2. PLAN: Treat him with Tegretol 200 mg three times a day Neurontin q.8 h., Seroquel 200 mg q.8 h. In addition to that, I am also going to cut him back on 25 mg due to agitation, irritability, and combativeness. Chart reviewed and discussed with staff. Seen and assessed at the bedside. I would like to thank Dr. Curtis Gavin for this interesting consultation. Chart reviewed and discussed with staff. Wing Cervantes M.D. DR: JOAQUÍN JOB#: [id number] CC:
--- NOTE | 2017-04-21 10:42 | Diagnostic Imaging Report ---
APPROVED REPORT CPT Code: 35184 Present Symptoms Lower Extremity Pain: Bilateral BILATERAL: Imaging reveals a patent deep venous system bilaterally. There is no evidence of thrombus within the femoral, popliteal or tibial segments. The greater saphenous veins are also within normal limits. Doppler indicates normal spontaneous flow within these segments.
--- NOTE | 2017-04-22 08:31 | Consultation ---
DATE OF CONSULTATION: 04/20/2017 NOTE: POOR AUDIO QUALITY PSYCHOTHERAPY CONSULTATION PROGRESS NOTE CONSULTING PHYSICIAN: Abdi Medley M.D. TREATING ATTENDING PHYSICIAN: Curtis Gavin D.O. HISTORY OF PRESENT ILLNESS: The patient is a 41-year-old male patient from [facility]. The patient has a history of bipolar disorder. The patient was admitted to the hospital for multiple medical problems including priapism and chronic pain. Due to the patient's history of mental illness, anxiety, and agitation, the patient was referred for psychotherapeutic services. The patient was assessed by this clinician. The patient is very anxious and irritable due to his current medical condition, agitated, and mood was fluctuating. The patient denies suicidal or homicidal thoughts of ideation, however, states that he is feeling uncomfortable with his current pain level and his current . This clinician assessed the patient. PAST MEDICAL HISTORY: History of hypertension, COPD, seizure disorder including past history . ALLERGIES: The patient is allergic to Depakote. SUBSTANCE HISTORY: There is no indication of alcohol use, illicit substance use, or smoking cigarettes. PSYCHIATRIC HISTORY: The patient has a history of bipolar disorder. The patient has been treated with psychotropic medications in the past. SOCIAL HISTORY: The patient is a 41-year-old male patient from [facility], financially sustained through [facility]. MENTAL STATUS EXAMINATION: The patient is alert and oriented x3 to person, place, and time. Mood is irritable. Affect is labile. Thought process, disorganized. Thought content is very negative and catastrophic. The patient has poor attention and concentration. Poor insight, judgment, and impulse control. DIAGNOSIS: Bipolar 2 disorder, depressed, moderate without psychotic features. PLAN: This clinician assessed the patient. Provided the patient with reality orientation and supportive psychotherapy. Encouraging the patient to participate in treatment milieu, addressing the patient's anxiety and depression, processing thoughts coping skills for the patient to continue with behavioral management. This clinician has reviewed the patient's chart and discussed the treatment with treatment team. Abdi Medley PsyD. DR: Mamta JOB#: [id number] CC:
[2017-04-22] MEDS ORDERED: FISH OIL CAP1000 MG ORAL (12:17)
--- NOTE | 2017-04-22 12:17 | Discharge Summary ---
Discharge Summary Hospital Course Date of Admission Apr 18, 2017 at 02:24 Date of Discharge Apr 20, 2017 at 21:30 Admitting Diagnosis priapism, seizure disorder HPI Rigo Howell is a 41 year old male who was admitted on Apr 18, 2017 at 02:24 for Priapism,Seizure Disorder Hospital Course dc summary #[id number] Discharge Medications Continued Medications: Acetaminophen* (Acetaminophen 325MG Tablet*) 325 Mg Tablet 650 MG ORAL Q4H PRN for Fever/Headache/Mild Pain, TAB Al Hydroxide/mg Hydroxide (Mag-Al Plus Suspension) 30 Ml Oral.susp 30 ML PO Q6HR PRN for prn, ML Aspirin* (Aspirin*) 81 Mg Tab.chew 81 MG ORAL DAILY, TAB Benztropine Mesylate* (Benztropine Mesylate*) 1 Mg Tablet 1 MG PO BID, TAB Carbamazepine (Tegretol*) 200 Mg Tablet 200 MG PO TID, #10 TAB 0 Refills Gabapentin* (Gabapentin*) 300 Mg Capsule 300 MG ORAL EVERY 8 HOURS, CAP Hydroxyzine Hcl (Hydroxyzine Hcl) 10 Mg Tablet 10 MG PO EVERY 8 HOURS PRN for Itching, TAB Lamotrigine* (Lamictal*) 100 Mg Tablet 50 MG ORAL BID, #30 TAB 0 Refills Levetiracetam (Keppra) 500 Mg Tablet 500 MG ORAL EVERY 12 HOURS, #60 TAB 0 Refills Lorazepam* (Ativan*) 1 Mg Tablet 1 MG ORAL Q6HR PRN for prn, TAB Ondansetron* (Zofran*) 4 Mg Tablet 4 MG ORAL Q6H PRN for Nausea & Vomiting, TAB Polyethylene Glycol 3350* (Polyethylene Glycol 3350*) 17 Gm Powd.pack 17 GM ORAL BEDTIME PRN for Constipation, PACKET Quetiapine Fumarate* (Seroquel*) 200 Mg Tablet 200 MG ORAL EVERY 8 HOURS, TAB Zolpidem Tartrate* (Zolpidem Tartrate*) 5 Mg Tablet 5 MG ORAL BEDTIME PRN for Insomnia, TAB 0 Refills Discontinued Medications: Acetaminophen* (Acetaminophen*) 160 Mg/5 Ml Elixir 27 MG ORAL Q4HR PRN for For Pain, ML Benztropine Mesylate (Cogentin) 2 Mg/2 Ml Ampul 2 MG PO BID, % Carbamazepine* (Carbamazepine*) 200 Mg Tablet 300 MG ORAL EVERY 8 HOURS, TAB Levetiracetam (Levetiracetam) 750 Mg Tab.er.24h 750 MG ORAL BID, #30 TAB 0 Refills Lorazepam* (Ativan*) 2 Mg/1 Ml Vial 1 MG IM Q6HR for EPILEPSY, VIAL Magnesium Hydroxide* (Milk Of Magnesia*) 2,400 Mg/10 Ml Oral.susp 30 ML ORAL DAILY PRN for Constipation, ML Polyethylene Glycol 3350* (Miralax*) 17 Gm Powd.pack 17 GM ORAL DAILY, PACKET Discharge Condition Upon Discharge: stable Discharge Disposition Patient was discharged to SNF/Subacute Facility(03) Discharge Diagnoses: Edgar ([facility])Ana NP Apr 22, 2017 12:17
--- NOTE | 2017-04-22 20:45 | Discharge Summary 2 SIG ---
DATE OF ADMISSION: 04/18/2017 DATE OF DISCHARGE: 04/20/2017 REASON FOR ADMISSION: A 41 years old male with history of schizoaffective disorder, depression, COPD, seizure disorder, and recurrent priapism, presented to emergency department after increased persistent erection. The patient noted erection started about 7 in the morning. He reported prior episodes of priapism. The patient was on multiple psychiatric medications as well as alpha joseph. He denied taking Viagra or other erectile dysfunction medications. Vital signs were unremarkable. Laboratory work was unremarkable. Urologist consulted. The patient had a corporal irrigation by urologist, who initially was able to reduce priapism. However, the patient was noted to have recurrence of symptoms afterwards. The patient was given subcutaneous terbutaline without any change. The patient was admitted for further management with diagnosis of recurrent priapism, seizure disorders, and psychiatric disorder. HOSPITAL COURSE: The patient admitted. Per urologist, the patient will need a pelvic shunt surgery. The patient was placed on waiting list for transfer to [facility]. No beds were available yet. The patient was hesitant of having surgery and wanted a second opinion of the urologist. The patient will see urologist as an outpatient. Priapism somewhat reduced. Seizure precautions were maintained. The patient was continued on antiepileptic regimen. No seizure activities while in the hospital. Pain management provided. Supplemental oxygen provided as needed to keep saturation above 92%. Pulse oximetry actually was stable on room air. Pulmonary toilet was ordered as needed and was on standby. No evidence of COPD exacerbation. Psychiatrist followed the patient, diagnosed the patient with bipolar type 2 and schizoaffective disorder. Psychiatric medication regimen was optimized. The patient noted to have a leukocytosis. ID consult requested, however, per ID , leukocytosis was likely reactive. It was trending down. The patient was afebrile. No clinical evidence of infection. ID recommended to keep the patient off antibiotics and observe closely. Lipid panel revealed evidence of mixed hyperlipidemia with elevated triglycerides and LDL. Fish oil was added. The patient was reluctant to start statin. The patient was counseled on therapeutic lifestyle changes and recommended to repeat lipid panel in three months. If still elevated LDL, recommend to start statin. The patient was counseled on abstinence from street drugs and abstinence from smoking. The patient declined nicotine patch. The patient DNR/DNI status. The patient opted at this time to go back to halfway facility and wait for another Urology evaluation. FINAL DIAGNOSES: 1. Recurrent priapism. 2. Schizoaffective disorder, bipolar type. 3. Leukocytosis, reactive, improving. 4. Mixed hyperlipidemia. 5. Seizure disorder. 6. Chronic obstructive pulmonary disease. 7. History of polysubstance abuse (alcohol, cocaine, and methamphetamine). 8. Tobacco dependency. DISCHARGE MEDICATIONS: See medication reconciliation list. DISCHARGE INSTRUCTIONS: The patient was discharged to halfway facility. Follow up with second opinion for urologist. Curtis Gavin D.O. Ana LaguerreCayuga Medical CenterLane N.PAngel DR: Curtis JOB#: [id number] CC: OTONIEL
== END 2017-04-20 21:30 | DRG 730 ==
LOC: EDBD 22:54 → EDUNIT# 22:54 → EMR 23:08 → 4E 04-18 02:24 → EDBEDREQ 04-18 03:27
DX: N48.30 Priapism, unspecified (principal); F25.0 Schizoaffective disorder, bipolar type; I10 Essential (primary) hypertension; J44.9 Chronic obstructive pulmonary disease, unspecified; G40.909 Epilepsy, unspecified, not intractable, without status epilepticus; F10.10 Alcohol abuse, uncomplicated; F43.10 Post-traumatic stress disorder, unspecified; F31.9 Bipolar disorder, unspecified; G89.29 Other chronic pain; E78.2 Mixed hyperlipidemia; Z66 Do not resuscitate; F17.200 Nicotine dependence, unspecified, uncomplicated; F15.10 Other stimulant abuse, uncomplicated; F14.10 Cocaine abuse, uncomplicated; Z88.8 Allergy status to other drugs, medicaments and biological substances
CPT/HCPCS: 36415; 80048; 80053; 80061; 80299; 81001; 84443; 85025; 87081; 93970; 99284; 99285; J2370

== ENCOUNTER 2017-04-23 20:22 | Inpatient (IN) | payer MEDICARE, OTHER ==
[~2017-04-23] VITALS: Ht 180.3 cm; Wt 81.6 kg
[~2017-04-23 20:22] MED LIST changes: +ACETAMINOPHEN325 M1 ORAL; +ASPIRIN81 MG ORAL; +ATIVAN1 MG ORAL; +BENZTROPINE MESY1 MG PO; +CHLORPROMAZINE25 MG PO; +FISH OIL CAP1000 MG ORAL; +MYLANTA II30 ML PO; +ZOFRAN4 M3 ORAL
[2017-04-23 20:25] VITALS: BP 131/87
[2017-04-23 21:00] LABS: BASOPHILS % (AUTO) 1.7 % (0.0-2.0); EOSINOPHILS % (AUTO) 4.6 % (0.0-3.0); MEAN CORPUSCULAR HEMOGLOBIN 34.3 PG (27.0-31.0); MEAN CORPUSCULAR VOLUME 101 FL (80-99); MEAN PLATELET VOLUME 7.6 FL (6.5-10.1); MONOCYTES % (AUTO) 7.9 % (1.0-10.0); NEUTROPHILS % (AUTO) 58.8 % (45.0-75.0); PLATELET COUNT 345 K/UL (150-450); RED BLOOD COUNT 4.03 M/UL (4.70-6.10); RED CELL DISTRIBUTION WIDTH 10.4 % (11.6-14.8); WHITE BLOOD COUNT 7.5 K/UL (4.8-10.8)
[2017-04-23 21:12] LABS: ANION GAP 9 mmol/L (5-15); CALCIUM 9.1 MG/DL (8.5-10.1); CARBON DIOXIDE 27 MMOL/L (21-32); CHLORIDE 105 MMOL/L (98-107); GLOMERULAR FILTRATION RATE > 60 mL/min (>60); POTASSIUM 4.2 MMOL/L (3.5-5.1); SODIUM 141 MMOL/L (136-145)
[2017-04-23 21:24] LABS: ALANINE AMINOTRANSFERASE 16 U/L (12-78); ALBUMIN/GLOBULIN RATIO 1.1 (1.0-2.7); ASPARTATE AMINO TRANSFERASE 11 U/L (15-37)
[2017-04-23] MEDS ORDERED: ATIVAN0.5 MG ORAL (22:59)
[2017-04-23] MEDS ORDERED: MORPHINE 22 MG/1 ML IV (22:59)
[2017-04-23 23:40] VITALS: BP 121/84
--- NOTE | 2017-04-24 01:05 | Emergency Room Report ---
History of Present Illness General Chief Complaint: Syncope Source: Patient, Medical Record, EMS Present Illness HPI Patient 41-year-old male presented after a syncopal episode. The patient was noted to have episode of syncope while at detention. He had prior history of psychiatric disease and had recently had his medications changed after priapism. He had prior history of chronic pain as well as a seizure disorder. Allergies: Coded Allergies: CHLORPROMAZINE (Verified Allergy, Unknown, 04/20/17) DIVALPROEX SODIUM (Verified Allergy, Unknown, 04/17/17) Patient History Past Medical History: see triage record Reviewed Nursing Documentation: PMH: Agreed, PSxH: Agreed Nursing Documentation-PMH Hx Hypertension: Yes - HTN, COPD, Hx COPD: Yes Hx Cancer: No Hx Peripheral Neuropathy: Yes Hx Head Trauma: Yes Review of Systems All Other Systems: limited Physical Exam Vital Signs Date Time Temp Pulse Resp B/P (MAP) Pulse Ox O2 Delivery O2 Flow Rate FiO2 04/23/17 20:13 98.2 80 18 131/87 97 Room Air Sp02 EP Interpretation: reviewed, normal General Appearance: normal inspection, well appearing, no apparent distress, alert, GCS 15, Chronically Ill Head: atraumatic ENT: normal ENT inspection, hearing grossly normal, normal voice Neck: normal inspection, full range of motion, supple, no bony tend Respiratory: normal inspection, lungs clear, normal breath sounds, no respiratory distress, no retraction, no wheezing Cardiovascular #1: regular rate, rhythm, no edema Gastrointestinal: normal inspection, normal bowel sounds, non tender, soft, no guarding, no hernia Genitourinary: no CVA tenderness, other - penile erection Musculoskeletal: normal inspection, back normal, normal range of motion Neurologic: normal inspection, alert, responsive, speech normal Psychiatric: normal inspection, judgement/insight normal, mood/affect normal Skin: normal inspection, normal color, no rash Medical Decision Making Diagnostic Impression: Primary Impression: Syncope Additional Impressions: Seizure disorder Chronic pain Priapism, drug-induced ER Course Patient presented for syncopal episode.lDifferential diagnosis included but not limited to syncope versus seizure. Potential causes for syncope included arrhythmia, dehydration, acute coronary syndrome, severe anemia, pulmonary embolus. Because of complexity of patient's case laboratory testing and imaging studies were ordered.The patient was noted to have prior history of seizure disorder there is no evidence of oral trauma Dr. Juan Frost was contacted for inpatient management due to the patient's recent loss of consciousness for further evaluation. given the patient's previous visit for priapism he may require further management of this however previously was noted to have no change with phenylephrine irrigation by urology. Labs Test 04/23/17 20:40 White Blood Count 7.5 K/UL (4.8-10.8) Red Blood Count 4.03 M/UL (4.70-6.10) Hemoglobin 13.8 G/DL (14.2-18.0) Hematocrit 40.7 % (42.0-52.0) Mean Corpuscular Volume 101 FL (80-99) Mean Corpuscular Hemoglobin 34.3 PG (27.0-31.0) Mean Corpuscular Hemoglobin Concent 34.0 G/DL (32.0-36.0) Red Cell Distribution Width 10.4 % (11.6-14.8) Platelet Count 345 K/UL (150-450) Mean Platelet Volume 7.6 FL (6.5-10.1) Neutrophils (%) (Auto) 58.8 % (45.0-75.0) Lymphocytes (%) (Auto) 27.0 % (20.0-45.0) Monocytes (%) (Auto) 7.9 % (1.0-10.0) Eosinophils (%) (Auto) 4.6 % (0.0-3.0) Basophils (%) (Auto) 1.7 % (0.0-2.0) Prothrombin Time 10.0 SEC (9.30-11.50) Prothromb Time International Ratio 1.0 (0.9-1.1) Activated Partial Thromboplast Time 35 SEC (23-33) Sodium Level 141 MMOL/L (136-145) Potassium Level 4.2 MMOL/L (3.5-5.1) Chloride Level 105 MMOL/L (98-107) Carbon Dioxide Level 27 MMOL/L (21-32) Anion Gap 9 mmol/L (5-15) Blood Urea Nitrogen 17 mg/dL (7-18) Creatinine 1.0 MG/DL (0.55-1.30) Estimat Glomerular Filtration Rate > 60 mL/min (>60) Glucose Level 107 MG/DL (74-106) Calcium Level 9.1 MG/DL (8.5-10.1) Total Bilirubin 0.1 MG/DL (0.2-1.0) Aspartate Amino Transf (AST/SGOT) 11 U/L (15-37) Alanine Aminotransferase (ALT/SGPT) 16 U/L (12-78) Alkaline Phosphatase 75 U/L (46-116) Troponin I 0.000 ng/mL (0.000-0.056) Pro-B-Type Natriuretic Peptide 9 pg/mL (0-125) Total Protein 7.0 G/DL (6.4-8.2) Albumin 3.6 G/DL (3.4-5.0) Globulin 3.4 g/dL Albumin/Globulin Ratio 1.1 (1.0-2.7) Last Vital Signs Date Time Temp Pulse Resp B/P (MAP) Pulse Ox O2 Delivery O2 Flow Rate FiO2 04/23/17 23:40 97.4 66 16 121/84 98 Room Air Status: unchanged Disposition: ADMITTED INPATIENT Condition: Serious Referrals: JUAN FROST (PCP) Yosef Smith Apr 24, 2017 01:05
[2017-04-24 02:00] VITALS: BP 126/76
[2017-04-24 04:00] VITALS: BP 129/61
[2017-04-24] MEDS ORDERED: Albuterol/Ipratropium 3ml neb HHN PRN ×2 (06:45→18:45)
[2017-04-24] MEDS ORDERED: Morphine Sulfate 2mg/ml Inj IVP PRN (06:45)
[2017-04-24] MEDS ORDERED: Miralax 17gm pkt ORAL PRN ×3 (06:45→18:45)
[2017-04-24] MEDS ORDERED: traMADol 50mg tab ORAL PRN ×2 (06:45→18:45)
[2017-04-24] MEDS ORDERED: Mylanta II UD 30ml ORAL PRN ×2 (06:45→18:45)
[2017-04-24] MEDS ORDERED: LORazepam Inj 2mg/ml 1ml IV PRN ×2 (06:45→18:45)
[2017-04-24] MEDS ORDERED: Nitroglycerin Subl 0.4mg tab SL PRN ×2 (06:45→18:15)
[2017-04-24 08:00] VITALS: BP 129/82
[2017-04-24] MEDS ORDERED: Heparin 5000 units/ml inj SUBQ SCH (09:00)
[2017-04-24] MEDS ORDERED: Aspirin Baby 81mg ORAL SCH (09:00)
[2017-04-24] MEDS ORDERED: Benztropine 1mg tab ORAL SCH ×2 (09:00→18:00)
[2017-04-24] MEDS: carBAMazepine 200mg tab ORAL SCH ×3 (09:35→17:54)
--- NOTE | 2017-04-24 11:24 | Cardiology Report ---
APPROVED REPORT EKG Measurement Heart [id number] Normal sinus rhythm Normal ECG
--- NOTE | 2017-04-24 11:45 | Consultation ---
History of Present Illness General Date patient seen: Apr 24, 2017 Chief Complaint: Syncope Reason for Consultation: inpatient manageemnt Present Illness HPI 41-year-old male with hx of seizures, group home resident, recently hospitalized b/o Priapism at [facility] presented after a syncopal episode. He had prior history of chronic pain as well as a seizure disorder. Pt doesn't remember the event and more concerned about his priapism. Allergies: Coded Allergies: CHLORPROMAZINE (Verified Allergy, Unknown, 04/20/17) DIVALPROEX SODIUM (Verified Allergy, Unknown, 04/17/17) Medication History Scheduled Aspirin* (Aspirin*), 81 MG ORAL DAILY, (Reported) Benztropine Mesylate* (Benztropine Mesylate*), 1 MG PO BID, (Reported) Carbamazepine (Tegretol*), 200 MG PO TID, (Reported) Chlorpromazine Hcl (Chlorpromazine Hcl), 20 MG PO TID, (Reported) Docusate Sodium* (Colace*), 100 MG ORAL DAILY, (Reported) Fish Oil (Fish Oil 1,000 mg Capsule), 1,000 MG ORAL DAILY Folic Acid* (Folic Acid*), 1 MG ORAL DAILY, (Reported) Gabapentin* (Gabapentin*), 300 MG ORAL EVERY 8 HOURS, (Reported) Lamotrigine* (Lamictal*), 50 MG ORAL BID, (Reported) Levetiracetam (Keppra), 500 MG ORAL EVERY 12 HOURS, (Reported) Levetiracetam* (Levetiracetam*), 1,500 MG ORAL TWICE A DAY, (Reported) Lorazepam* (Ativan*), 0.5 MG ORAL Q6HR, (Reported) Morphine HCl (Morphine Sulfate ER), 15 MG ORAL DAILY, (Reported) Multivitamin (Multi Vitamin Daily), 1 TAB ORAL DAILY, (Reported) Nicotine 14MG Patch* (Nicoderm Cq 14MG*), 1 EACH TD DAILY, (Reported) Quetiapine Fumarate* (Seroquel*), 200 MG ORAL EVERY 8 HOURS, (Reported) Ziprasidone Hcl* (Geodon*), 80 MG ORAL TWICE A DAY, (Reported) Scheduled PRN Acetaminophen* (Acetaminophen 325MG Tablet*), 650 MG ORAL Q4H PRN for Fever/ Headache/Mild Pain, (Reported) Al Hydroxide/mg Hydroxide (Mag-Al Plus Suspension), 30 ML PO Q6HR PRN for prn, ( Reported) Albuterol Sulfate (Ventolin Hfa), 2 PUFFS INH EVERY 6 HOURS PRN for Shortness of Breath, (Reported) Hydroxyzine Hcl (Hydroxyzine Hcl), 10 MG PO EVERY 8 HOURS PRN for Itching, ( Reported) Lorazepam* (Ativan*), 1 MG ORAL Q6HR PRN for prn, (Reported) Morphine 10mg/5ml Oral Soln* (Morphine 10mg/5ml Oral Soln*), 15 MG ORAL EVERY 12 HOURS PRN for For Pain, (Reported) Morphine Sulfate* (Morphine Sulfate*), 1 MG IV Q4HR PRN for Pain Scale (6-10), ( Reported) Ondansetron* (Zofran*), 4 MG ORAL Q6H PRN for Nausea & Vomiting, (Reported) Polyethylene Glycol 3350* (Polyethylene Glycol 3350*), 17 GM ORAL BEDTIME PRN for Constipation, (Reported) Tramadol Hcl* (Ultram*), 50 MG ORAL Q6H PRN for For Pain, (Reported) Zolpidem Tartrate* (Zolpidem Tartrate*), 5 MG ORAL BEDTIME PRN for Insomnia, ( Reported) Miscellaneous Medications Folic Acid/Vitamin B Comp W-C (Lia-Ramona Tablet), 1 MG PO, (Reported) Meclizine Hcl* (Meclizine*), 25 MG ORAL, (Reported) Discontinued Medications Acetaminophen* (Acetaminophen*), 27 MG ORAL Q4HR PRN for For Pain, (Reported) Discontinued Reason: MD discontinued med Benztropine Mesylate (Cogentin), 2 MG PO BID, (Reported) Discontinued Reason: MD discontinued med Carbamazepine* (Carbamazepine*), 300 MG ORAL EVERY 8 HOURS, (Reported) Discontinued Reason: MD discontinued med Levetiracetam (Levetiracetam), 750 MG ORAL BID, (Reported) Discontinued Reason: MD discontinued med Lorazepam* (Ativan*), 1 MG IM Q6HR, (Reported) Discontinued Reason: MD discontinued med Magnesium Hydroxide* (Milk Of Magnesia*), 30 ML ORAL DAILY PRN for Constipation, (Reported) Discontinued Reason: MD discontinued med Polyethylene Glycol 3350* (Miralax*), 17 GM ORAL DAILY, (Reported) Discontinued Reason: discontinued med Patient History Healthcare decision maker Resuscitation status Do Not Resuscitate Advanced Directive on File No Past Medical/Surgical History Past Medical/Surgical History: (1) Seizure disorder (2) Epilepsia Review of Systems Constitutional: Reports: no symptoms Eye: Reports: no symptoms ENT: Reports: other Physical Exam General Appearance: WD/WN Lines, tubes and drains: peripheral, PICC HEENT: normocephalic, atraumatic Neck: non-tender, normal alignment Respiratory/Chest: chest wall non-tender, lungs clear, normal breath sounds Breasts: no masses Cardiovascular/Chest: normal rate Abdomen: normal bowel sounds Genitourinary/Rectal: normal genital exam, normal rectal exam Extremities: normal range of motion Last 24 Hour Vital Signs Date Time Temp Pulse Resp B/P (MAP) Pulse Ox O2 Delivery O2 Flow Rate FiO2 04/24/17 08:00 96.8 81 22 129/82 96 Room Air 04/24/17 04:00 98.2 82 20 129/61 94 Room Air 04/24/17 02:00 97.8 77 20 126/76 95 Room Air 04/24/17 02:00 77 04/24/17 01:25 97.4 66 16 121/84 98 Room Air 04/23/17 23:40 97.4 66 16 121/84 98 Room Air 04/23/17 20:25 98.2 18 131/87 97 Room Air 04/23/17 20:13 98.2 80 18 131/87 97 Room Air Laboratory Tests Test 04/23/17 20:40 White Blood Count 7.5 K/UL (4.8-10.8) Red Blood Count 4.03 M/UL (4.70-6.10) L Hemoglobin 13.8 G/DL (14.2-18.0) L Hematocrit 40.7 % (42.0-52.0) L Mean Corpuscular Volume 101 FL (80-99) H Mean Corpuscular Hemoglobin 34.3 PG (27.0-31.0) H Mean Corpuscular Hemoglobin Concent 34.0 G/DL (32.0-36.0) Red Cell Distribution Width 10.4 % (11.6-14.8) L Platelet Count 345 K/UL (150-450) Mean Platelet Volume 7.6 FL (6.5-10.1) Neutrophils (%) (Auto) 58.8 % (45.0-75.0) Lymphocytes (%) (Auto) 27.0 % (20.0-45.0) Monocytes (%) (Auto) 7.9 % (1.0-10.0) Eosinophils (%) (Auto) 4.6 % (0.0-3.0) H Basophils (%) (Auto) 1.7 % (0.0-2.0) Prothrombin Time 10.0 SEC (9.30-11.50) Prothromb Time International Ratio 1.0 (0.9-1.1) Activated Partial Thromboplast Time 35 SEC (23-33) H Sodium Level 141 MMOL/L (136-145) Potassium Level 4.2 MMOL/L (3.5-5.1) Chloride Level 105 MMOL/L (98-107) Carbon Dioxide Level 27 MMOL/L (21-32) Anion Gap 9 mmol/L (5-15) Blood Urea Nitrogen 17 mg/dL (7-18) Creatinine 1.0 MG/DL (0.55-1.30) Estimat Glomerular Filtration Rate > 60 mL/min (>60) Glucose Level 107 MG/DL (74-106) H Calcium Level 9.1 MG/DL (8.5-10.1) Total Bilirubin 0.1 MG/DL (0.2-1.0) L Aspartate Amino Transf (AST/SGOT) 11 U/L (15-37) L Alanine Aminotransferase (ALT/SGPT) 16 U/L (12-78) Alkaline Phosphatase 75 U/L (46-116) Troponin I 0.000 ng/mL (0.000-0.056) Pro-B-Type Natriuretic Peptide 9 pg/mL (0-125) Total Protein 7.0 G/DL (6.4-8.2) Albumin 3.6 G/DL (3.4-5.0) Globulin 3.4 g/dL Albumin/Globulin Ratio 1.1 (1.0-2.7) Height (Feet): 5 Height (Inches): 11.00 Weight (Pounds): 180 Medications Current Medications Medications (Trade) Dose Ordered Sig/Sharon Route PRN Reason Start Time Stop Time Status Last Admin Dose Admin Acetaminophen (Tylenol) 650 mg Q4H PRN ORAL fever 04/24/17 06:45 05/24/17 06:44 Al Hydroxide/Mg Hydroxide (Mylanta II) 30 ml Q6H PRN ORAL dyspepsia 04/24/17 06:45 05/24/17 06:44 Albuterol/ Ipratropium (Albuterol/ Ipratropium) 3 ml EVERY 4 HOURS PRN HHN Shortness of Breath 04/24/17 06:45 04/29/17 06:44 Aspirin (ASA) 81 mg DAILY ORAL 04/24/17 09:00 05/24/17 08:59 04/24/17 09:35 Benztropine Mesylate (Cogentin) 1 mg BID ORAL 04/24/17 09:00 05/24/17 08:59 04/24/17 11:09 Carbamazepine (TEGretol) 200 mg TID ORAL 04/24/17 09:00 05/24/17 08:59 04/24/17 09:35 Clonidine HCl (Catapres) 0.1 mg Q4H PRN ORAL For High Blood Pressure 04/24/17 06:45 05/24/17 06:44 Dextrose (Dextrose 50%) STAT PRN IV Hypoglycemia 04/24/17 06:45 05/24/17 06:44 Gabapentin (Neurontin) 300 mg EVERY 8 HOURS ORAL 04/24/17 14:00 05/24/17 13:59 Heparin Sodium (Porcine) (Heparin 5000 units/ml) 5,000 units EVERY 12 HOURS SUBQ 04/24/17 09:00 05/24/17 08:59 04/24/17 09:36 Lamotrigine (LaMICtal) 50 mg BID ORAL 04/24/17 09:00 05/24/17 08:59 04/24/17 11:09 Levetiracetam (Keppra) 500 mg EVERY 12 HOURS ORAL 04/24/17 09:00 05/24/17 08:59 04/24/17 09:35 Lorazepam (Ativan 2mg/ml 1ml) 0.5 mg Q4H PRN IV For Anxiety 04/24/17 06:45 05/01/17 06:44 Morphine Sulfate (Morphine Sulfate) 1 mg EVERY 4 HOURS PRN IVP For Pain 7-10 04/24/17 06:45 05/01/17 06:44 04/24/17 11:14 Nicotine (Nicoderm) 1 patch DAILY TDERMAL 04/24/17 09:00 05/24/17 08:59 04/24/17 11:11 Nitroglycerin (Ntg) 0.4 mg Q5M X 3 DOSES PRN SL Prn Chest Pain 04/24/17 06:45 05/24/17 06:44 Ondansetron HCl (Zofran) 4 mg Q6H PRN IVP Nausea & Vomiting 04/24/17 06:45 05/24/17 06:44 Polyethylene Glycol (Miralax) 17 gm HSPRN PRN ORAL Constipation 04/24/17 06:45 05/24/17 06:44 Quetiapine Fumarate (SEROquel) 200 mg EVERY 8 HOURS ORAL 04/24/17 14:00 05/24/17 13:59 Temazepam (Restoril) 15 mg HSPRN PRN ORAL Insomnia 04/24/17 06:45 05/01/17 06:44 Tramadol HCl (Ultram) 50 mg Q6H PRN ORAL For Pain 04/24/17 06:45 05/01/17 06:44 Assessment/Plan Problem List: (1) Syncope ICD Codes: R55 - Syncope and collapse SNOMED: 967616271 (2) Priapism ICD Codes: N48.30 - Priapism, unspecified SNOMED: 8847373, 284524110 (3) COPD (chronic obstructive pulmonary disease) ICD Codes: J44.9 - Chronic obstructive pulmonary disease, unspecified SNOMED: 94309674 (4) HTN (hypertension) ICD Codes: I10 - Essential (primary) hypertension SNOMED: 03615236 (5) Epilepsia ICD Codes: G40.909 - Epilepsy, unspecified, not intractable, without status epilepticus SNOMED: 50201924 (6) Psychiatric disorder ICD Codes: F99 - Mental disorder, not otherwise specified SNOMED: 21555193, 647334817 Assessment/Plan telemetry, echo cardiology evaluation neuro evaluation JJ YUNG Apr 24, 2017 11:45
[2017-04-24 12:00] VITALS: BP 123/79
--- NOTE | 2017-04-24 12:44 | Neurology Progress Note ---
Objective Physical Exam Last Vital Signs Date Time Temp Pulse Resp B/P (MAP) Pulse Ox O2 Delivery O2 Flow Rate FiO2 04/24/17 08:00 96.8 81 22 129/82 96 Room Air Laboratory Tests Test 04/23/17 20:40 White Blood Count 7.5 K/UL (4.8-10.8) Red Blood Count 4.03 M/UL (4.70-6.10) L Hemoglobin 13.8 G/DL (14.2-18.0) L Hematocrit 40.7 % (42.0-52.0) L Mean Corpuscular Volume 101 FL (80-99) H Mean Corpuscular Hemoglobin 34.3 PG (27.0-31.0) H Mean Corpuscular Hemoglobin Concent 34.0 G/DL (32.0-36.0) Red Cell Distribution Width 10.4 % (11.6-14.8) L Platelet Count 345 K/UL (150-450) Mean Platelet Volume 7.6 FL (6.5-10.1) Neutrophils (%) (Auto) 58.8 % (45.0-75.0) Lymphocytes (%) (Auto) 27.0 % (20.0-45.0) Monocytes (%) (Auto) 7.9 % (1.0-10.0) Eosinophils (%) (Auto) 4.6 % (0.0-3.0) H Basophils (%) (Auto) 1.7 % (0.0-2.0) Prothrombin Time 10.0 SEC (9.30-11.50) Prothromb Time International Ratio 1.0 (0.9-1.1) Activated Partial Thromboplast Time 35 SEC (23-33) H Sodium Level 141 MMOL/L (136-145) Potassium Level 4.2 MMOL/L (3.5-5.1) Chloride Level 105 MMOL/L (98-107) Carbon Dioxide Level 27 MMOL/L (21-32) Anion Gap 9 mmol/L (5-15) Blood Urea Nitrogen 17 mg/dL (7-18) Creatinine 1.0 MG/DL (0.55-1.30) Estimat Glomerular Filtration Rate > 60 mL/min (>60) Glucose Level 107 MG/DL (74-106) H Calcium Level 9.1 MG/DL (8.5-10.1) Total Bilirubin 0.1 MG/DL (0.2-1.0) L Aspartate Amino Transf (AST/SGOT) 11 U/L (15-37) L Alanine Aminotransferase (ALT/SGPT) 16 U/L (12-78) Alkaline Phosphatase 75 U/L (46-116) Troponin I 0.000 ng/mL (0.000-0.056) Pro-B-Type Natriuretic Peptide 9 pg/mL (0-125) Total Protein 7.0 G/DL (6.4-8.2) Albumin 3.6 G/DL (3.4-5.0) Globulin 3.4 g/dL Albumin/Globulin Ratio 1.1 (1.0-2.7) Impression/Recommendations Problems: (1) Syncope (2) extrapyramidal syndrom, drug induced (3) chronic pain syndrom with drug seeking behavior (4) 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 Status: unchanged Recommendations #[id number] ABBEY GAN Apr 24, 2017 12:44
[2017-04-24] MEDS ORDERED: QUEtiapine 200mg tab ORAL SCH (14:00)
[2017-04-24 16:00] VITALS: BP 138/73
--- NOTE | 2017-04-24 17:35 | Diagnostic Imaging Report ---
Indication: Altered mental status Technique: MRI the brain performed utilizing T1 sagittal, T2 axial, T1 FLAIR axial, T2 FLAIR axial, T2 axial FS propeller, T2 star and diffusion axial images. Findings: Patient motion degrades exam, particular the axial T1 and T2 FLAIR sequences. No diffusion abnormalities are seen on diffusion weighted imaging to suggest acute infarct. There is no shift of midline structures. No significant extra-axial collections of fluid or blood are demonstrated. The sella and parasellar regions are unremarkable. Expected signal flow voids are seen of the vessels of the skull base. Visualized mastoid air cells are unremarkable. Fluid signal is noted within the ethmoid air cells. No focal bony calvarium or soft tissue lesions are seen. Impression: No evidence of acute infarct, hemorrhage, mass effect, midline shift or cortical edema. Sinus disease.
--- NOTE | 2017-04-24 18:45 | History and Physical Report ---
DATE OF ADMISSION: 04/23/2017 TIME SEEN: 12 noon. CONSULTANTS: 1. Patricio Strong M.D. 2. Christiano Mckinley M.D. 3. Wing Cervantes M.D. 4. Ghassan Espinoza M.D. 5. Silvino Henley M.D. CHIEF COMPLAINT: Syncope and priapism. BRIEF HISTORY: The patient is a 41-year-old male from [facility] [place] presented with above-mentioned diagnosis. No dizziness. No seizure noted. The patient passed out and brought to [facility], diagnosed with above, admitted to [facility] for further care. He does have history of priapism, recently seen at [facility] emergency room and discharged home. The patient currently calm in bed. No complaint. No chest pain. No shortness of breath. No nausea, vomiting, diarrhea. PAST MEDICAL HISTORY: Syncope, priapism, hypertension. PAST SURGICAL HISTORY: shunt and right knee. MEDICATIONS: Include Neurontin, Seroquel, aspirin, Cogentin, Tegretol, Lamictal, Keppra, heparin, Ultram, albuterol, Tylenol, morphine, MiraLAX, Zofran, Restoril, nitroglycerin, Catapres. ALLERGIES: Depakote and chlorpromazine . SOCIAL HISTORY: Positive smoking. No alcohol. No intravenous drug abuse. FAMILY HISTORY: Noncontributory. PHYSICAL EXAMINATION: GENERAL: Calm in bed, oriented x3, no acute distress. VITAL SIGNS: Show temperature is 96, pulse 81, respiratory rate 22 blood pressure 129/82. CARDIOVASCULAR: No murmur. Distant and clear. ABDOMEN: Bowel sounds positive. Nontender and nondistended. EXTREMITIES: No cyanosis, clubbing, or edema. Penile erect about 90 degrees. NEUROLOGIC: Cranial nerves II through XII grossly intact. Deep tendon reflexes 2+/4. Muscle strength 4/5. LABORATORY AND DIAGNOSTIC DATA: Hemoglobin 13.8, otherwise CBC is normal. BMP shows glucose 107, AST 11. Coagulation INR is 1.0 PTT is 35. ASSESSMENT: 1. Syncope. 2. Priapism. 3. Hypertension. 4. 5. Anemia. PLAN: 1. Blood pressure control 2. Dietary followup. 3. Troponin every 8 hours X3. 4. Resume home medications. 5. OT and PT. 6. Dietary evaluation. 7. CBC and BMP in the morning. 8. Dr. Strong, Dr. Mckinley, Dr. Cervantes, Dr. Espinoza, and Dr. Henley to consult. Curtis Gavin D.O. DR: Aramis JOB#: [id number] CC:
--- NOTE | 2017-04-24 19:11 | Cardiology Progress Note ---
Assessment/Plan Assessment/Plan The patient is seen and examined, full consult note will be dictated. Objective Last 24 Hour Vital Signs Date Time Temp Pulse Resp B/P (MAP) Pulse Ox O2 Delivery O2 Flow Rate FiO2 04/24/17 16:00 71 04/24/17 16:00 97.7 74 20 138/73 98 Room Air 04/24/17 12:00 97.7 74 20 123/79 98 Room Air 04/24/17 08:02 71 04/24/17 08:00 96.8 81 22 129/82 96 Room Air 04/24/17 04:00 98.2 82 20 129/61 94 Room Air 04/24/17 02:00 97.8 77 20 126/76 95 Room Air 04/24/17 02:00 77 04/24/17 01:25 97.4 66 16 121/84 98 Room Air 04/23/17 23:40 97.4 66 16 121/84 98 Room Air 04/23/17 20:25 98.2 18 131/87 97 Room Air 04/23/17 20:13 98.2 80 18 131/87 97 Room Air Intake and Output 04/24/17 04/25/17 19:00 07:00 Intake Total 720 ml Balance 720 ml Intake Oral 720 ml # Voids 5 Laboratory Tests Test 04/23/17 20:40 04/24/17 14:03 White Blood Count 7.5 K/UL (4.8-10.8) Red Blood Count 4.03 M/UL (4.70-6.10) L Hemoglobin 13.8 G/DL (14.2-18.0) L Hematocrit 40.7 % (42.0-52.0) L Mean Corpuscular Volume 101 FL (80-99) H Mean Corpuscular Hemoglobin 34.3 PG (27.0-31.0) H Mean Corpuscular Hemoglobin Concent 34.0 G/DL (32.0-36.0) Red Cell Distribution Width 10.4 % (11.6-14.8) L Platelet Count 345 K/UL (150-450) Mean Platelet Volume 7.6 FL (6.5-10.1) Neutrophils (%) (Auto) 58.8 % (45.0-75.0) Lymphocytes (%) (Auto) 27.0 % (20.0-45.0) Monocytes (%) (Auto) 7.9 % (1.0-10.0) Eosinophils (%) (Auto) 4.6 % (0.0-3.0) H Basophils (%) (Auto) 1.7 % (0.0-2.0) Prothrombin Time 10.0 SEC (9.30-11.50) Prothromb Time International Ratio 1.0 (0.9-1.1) Activated Partial Thromboplast Time 35 SEC (23-33) H Sodium Level 141 MMOL/L (136-145) Potassium Level 4.2 MMOL/L (3.5-5.1) Chloride Level 105 MMOL/L (98-107) Carbon Dioxide Level 27 MMOL/L (21-32) Anion Gap 9 mmol/L (5-15) Blood Urea Nitrogen 17 mg/dL (7-18) Creatinine 1.0 MG/DL (0.55-1.30) Estimat Glomerular Filtration Rate > 60 mL/min (>60) Glucose Level 107 MG/DL (74-106) H Calcium Level 9.1 MG/DL (8.5-10.1) Total Bilirubin 0.1 MG/DL (0.2-1.0) L Aspartate Amino Transf (AST/SGOT) 11 U/L (15-37) L Alanine Aminotransferase (ALT/SGPT) 16 U/L (12-78) Alkaline Phosphatase 75 U/L (46-116) Troponin I 0.000 ng/mL (0.000-0.056) Pro-B-Type Natriuretic Peptide 9 pg/mL (0-125) Total Protein 7.0 G/DL (6.4-8.2) Albumin 3.6 G/DL (3.4-5.0) Globulin 3.4 g/dL Albumin/Globulin Ratio 1.1 (1.0-2.7) Carbamazepine (Tegretol) Level 5.1 ug/mL (4.0-12.0) DARIANA SANTO Apr 24, 2017 19:11
[2017-04-24 20:00] VITALS: BP 129/68
[2017-04-24] MEDS: Morphine Sulfate 2mg/ml Inj IVP PRN (20:24)
[2017-04-24] MEDS: Heparin 5000 units/ml inj SUBQ SCH (20:27)
[2017-04-24] MEDS: QUEtiapine 200mg tab ORAL SCH (21:45)
--- NOTE | 2017-04-24 22:15 | Consultation ---
DATE OF CONSULTATION: 04/24/2017 NEUROLOGICAL CONSULTATION CONSULTING PHYSICIAN: Ghassan Espinoza M.D. REQUESTING PHYSICIAN: Curtis Gavin D.O. HISTORY OF PRESENT ILLNESS: This is a 41-year-old man, resident of a convalescent home, who was noted to have an episode of unresponsiveness. The patient recalled that he was sitting and suddenly he found himself on the ground, having pain in the right side of the body after the fall. He denies urine or bowel incontinence. The patient was brought to this facility with his vital signs being stable. He was afebrile. Blood pressure 131/87. His lab studies included mild anemia, hemoglobin 13.8, and hematocrit 40.7. Normal coagulation panel and chemistry panel. The patient was admitted for further assessment and treatment. There was no further paroxysmal events noted. PAST MEDICAL HISTORY: The patient has a lengthy history of medical issues this include chronic psychiatric illness, recently diagnosed PTSD, history of hypertension, cardiac arrhythmia, and history of priapism required penile shunting. He had a traumatic brain injury four years ago claiming four weeks of being unresponsive following which he developed paraparesis and chronic seizures described as generalized with clonic-tonic movement, loss of consciousness, and fall. There is history of COPD and history of polyneuropathy. Previously, alcohol abuse and heavy smoker. MEDICATIONS: Treatment prior to admission included albuterol, aspirin, Cogentin 1 mg b.i.d., Tegretol 200 mg t.i.d., chlorpromazine 20 mg t.i.d., Colace, folic acid, vitamin D supplements, gabapentin 300 mg t.i.d., Lamictal 100 mg b.i.d., Keppra 1500 mg b.i.d., as well as lorazepam p.r.n., meclizine, morphine p.r.n. for pain, nicotine patch, , Seroquel 200 mg q.8 hours, tramadol 50 mg p.r.n., Geodon 80 mg b.i.d., and zolpidem. ALLERGIES: Chlorpromazine and Depakote. The patient is known to me from a previous assessment in May of this year. Reportedly, CT of the brain was unremarkable. The patient has an upper motor neuron deficit bilaterally noted. There was no involuntary movement at that time. The patient was described as having chronic pain syndrome with drug-seeking behavior. SOCIAL HISTORY: Resident of nursing facility. History of alcohol abuse in the past. Now on NicoDerm, nonsmoker. FAMILY HISTORY: Noncontributory. REVIEW OF SYSTEMS: The patient indicated he has seizures mainly grand mal, unable to discuss the frequency, but stated he is not sure if he had a seizure yesterday or it was loss of consciousness. No headache. No dizziness. Denies chest pain or palpitations. Denies respiratory problems. Complains of priapism, weakness in the lower extremities, and numbness and tingling in both lower extremities. PHYSICAL EXAMINATION: GENERAL: A well-developed edentulous man, not in acute distress, lying comfortably in bed. VITAL SIGNS: His vital signs now are stable with blood pressure now 98/70, heart rate up to 140, and temperature 97.7. HEENT: Head normocephalic. No evidence of trauma. Eyes, ears, and throat are clear. NECK: Supple. No meningeal signs. MUSCULOSKELETAL: There are no deformities noted. Peripheral pulses 1+ and symmetric. MENTAL STATUS: He is alert and oriented x3 with no evidence of aphasia or apraxia. Cognitive function appears normal. Emotion labile. CRANIAL NERVE II: Pupils both responding to light and accommodation. Extraocular movement full range. CRANIAL NERVE V: Normal corneal responses. CRANIAL NERVE VII: Occasional facial grimacing. CRANIAL NERVES IX THROUGH XII: Tongue is in midline. Symmetric palate elevation. MOTOR EXAMINATION: Revealed generalized intermittent dyskinesia, some myoclonic jerks in upper and lower extremities, and torso. Strength 5/5 in both upper extremities and 2/5 in both lower extremities. Muscle tone appears normal in both upper extremities. There is some resistance in both lower extremities. Deep tendon reflexes very brisk, 3+ bilaterally. Plantar response is mute. SENSORY EXAMINATION: Withdrawing to pin stimulation both upper and lower extremities. GAIT: Not tested. IMPRESSION: 1. History of transient episode of loss of consciousness, probably syncope, but cannot rule out the seizure episode. 2. History of posttraumatic chronic seizure disorder, refractory to treatment. 3. Status post severe traumatic brain injury four years ago. 4. 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 5. Chronic psychiatric disorder. 6. Chronic pain, now opiate dependent. RECOMMENDATIONS: 1. Orthostatic blood pressure measurements. 2. EEG. 3. MRI of the brain without contrast. 4. Antipsychotic medications should be rapidly adjusted given development of ongoing extrapyramidal syndrome, this will be deferred to Psychiatry. 5. Pain management assessment to reduce opiate dependency. Thank you for allowing me to see this interesting patient in neurological consultation. Ghassan Espinoza M.D. DR: REEBKA JOB#: [id number] CC:
[2017-04-25] VITALS: BP 110/63
--- NOTE | 2017-04-25 00:30 | Consultation ---
DATE OF CONSULTATION: 04/24/2017 UROLOGY CONSULTATION CONSULTING PHYSICIAN: Silvino Henley M.D. ATTENDING PHYSICIAN/CONSULTING PHYSICIAN: Curtis Gavin D.O. CHIEF COMPLAINT/HISTORY OF PRESENT ILLNESS: I was asked by Dr. Gavin to evaluate this 41-year-old gentleman, known to me from previous hospitalization here regarding a history of recent priapism. Briefly, I saw the patient last week when presented to the ER with a case of venous priapism. There was no obvious etiology, but it was felt that his psychiatric medications may be causing the same. Despite corporal irrigation and pharmacologic intervention, the priapism did not go down. The patient was eventually transferred to [facility] where he tells me not much intervention was done despite being transferred for possible shunt surgery. The patient was recently noted to have an episode of syncope at the [place] [facility]. He had his medications changed after his priapistic episode. Given the same, he presents to the hospital. PAST MEDICAL HISTORY: 1. Bipolar disorder. 2. Hypertension. 3. Chronic obstructive pulmonary disease. 4. Priapism - recurrent. MEDICATIONS: Please see the chart for current medications administration details. ALLERGIES: Include divalproex and chlorpromazine. SOCIAL HISTORY: Unremarkable tobacco, alcohol, or drug use. FAMILY HISTORY: Noncontributory. REVIEW OF SYSTEMS: A 12-system review of systems was essentially unremarkable outside of what is described above. PHYSICAL EXAMINATION: GENERAL: The patient is a middle-aged gentleman, awake, alert, oriented x4, pleasant, in no obvious distress. HEENT: NC/AT. EOMI. NECK: Supple. Full range of motion. Oropharynx is clear. CHEST: Within normal limits. ABDOMEN: Soft, nontender, and nondistended. GENITOURINARY: Reveals a somewhat firm erection, significantly decreased versus his prior priapism of last week. It appears that the clot and fibrosis are softening from the previous episode. There are bilateral descended testes and cord structures. There are no masses or tenderness to palpation. EXTREMITIES: Warm and well perfused. No cyanosis, clubbing, or edema. BACK: No CVA tenderness to percussion. NEUROLOGIC: Grossly nonfocal. LABORATORY AND DIAGNOSTIC DATA: White blood cell count 7.5, hematocrit 40.7, and platelets 345. PT 10.0, INR 1.0, and PTT 35. Sodium 141, potassium 4.2, chloride 105, bicarbonate 27, BUN 17, creatinine 1.0, glucose 107, and calcium 9.1. LFTs within normal limits. Diagnostic imaging, none. ASSESSMENT AND PLAN: In summary, this patient is a 41-year-old gentleman with a history of psychiatric disease, on multiple psychiatric medications. He has a history of recurrent priapism likely secondary to the same. He presented to the hospital last week with the same and despite corporal irrigation and treatment with phenylephrine and epinephrine, I was unable to get the patient's erection go down. I attempted to transfer the patient to [facility] for emergent shunt surgery. He was eventually transferred there, but did not have any surgery done. He now returns to the hospital with a syncopal episode. Physical exam reveals a softening, but still somewhat firm erection. It has significantly decreased versus his prior presentation. Laboratory data is essentially unremarkable. There is no diagnostic imaging. I discussed these findings today with the patient given that he has been well over a week since his episode of priapism. We will have to wait for the clot and fibrosis to dissolve and come down. It appears that this process is already happening as such there is no role for surgical intervention, given the length of time and improved physical exam. Thank you for allowing me to participate in the care of this unfortunate gentleman. Please do not hesitate to contact me with any questions that you may further have regarding his care. I will see him with you as needed. Silvino Henley M.D. DR: Tariq JOB#: [id number] CC:
--- NOTE | 2017-04-25 03:45 | Consultation ---
DATE OF CONSULTATION: 04/24/2017 CARDIOLOGY CONSULTATION CONSULTING PHYSICIAN: Christiano Mckinley M.D. REFERRING PHYSICIAN: Curtis Gavin D.O. REASON FOR CONSULTATION: Management of syncope. HISTORY OF PRESENT ILLNESS: The patient is a very unfortunate 41-year-old gentleman with underlying psychiatric problem who presents to the hospital with a syncopal event. This happened when he was at [facility]. It is mentioned that he has had recent medication change, which might account for the occurrence of this syncope. The patient has had history of seizure disorder. It appears that this event was not witnessed. On arrival to the emergency department, blood pressure was 131/87 with pulse of 80. A 12-lead electrocardiogram showed sinus rhythm with no ST and T-wave abnormalities. The patient was admitted to telemetry for further evaluation and management. PAST MEDICAL HISTORY: Hypertension, COPD, history of peripheral neuropathy, history of head trauma and history of psychiatric disease. PAST SURGICAL HISTORY: Unknown. MEDICATIONS: List of medication includes acetaminophen 650 mg q.4 h. p.r.n. fever, headache and mild pain, Mag-Al Plus suspension 30 mL p.o. q.6 h. p.r.n., Ventolin 2 puffs q.6 h. p.r.n. shortness of breath, aspirin 81 mg p.o. daily, benztropine mesylate 1 mg p.o. twice daily, Tegretol 200 mg 3 times daily, chlorpromazine 20 mg p.o. 3 times daily, Colace 100 mg p.o. daily, fish oil 1000 mg p.o. daily, folic acid 1 mg p.o. daily, Lia-Ramona 1 mg p.o. daily, gabapentin 300 mg q.8 h., hydroxyzine 10 mg p.o. q.8 h. p.r.n. itching, Lamictal 50 mg p.o. twice daily, Keppra 500 mg p.o. twice daily and 1500 mg twice daily, Ativan 1 mg p.o. q.6 h. p.r.n. anxiety, amitriptyline 25 mg p.o. daily, morphine 15 mg p.o. q.12 h, multivitamin one tablet p.o. daily, nicotine 1 patch daily, Zofran 4 mg p.o. q.6 h. p.r.n. nausea and vomiting, MiraLAX 17 g at bedtime p.r.n. constipation, Seroquel 200 mg q.8 h., Ultram 50 mg p.o. q.6 h. p.r.n. pain, Geodon 80 mg p.o. twice daily and Zolpidem 5 mg p.o. at bedtime. ALLERGIES: Chlorpromazine and divalproex sodium. REVIEW OF SYSTEMS: HEENT: Denies any headache, diplopia, or blurred vision. CONSTITUTIONAL: Denies any fever, chills, night sweats, or weight loss. CARDIOVASCULAR: Denies any chest pain, shortness breath, PND, orthopnea, or leg swelling. PULMONARY: Denies any cough, hemoptysis, or wheezing. GASTROINTESTINAL: Denies any nausea, vomiting, diarrhea, constipation, abdominal pain, or GI bleed. GENITOURINARY: Denies any hematuria, dysuria, or incontinence. NEUROLOGIC: Denies any motor dysfunction, sensory deficit, or altered speech. He had a presumptive syncopal event. PHYSICAL EXAMINATION: VITAL SIGNS: Blood pressure was 131/87, pulse of 80, respiration of 18, temperature 98.2 degrees Fahrenheit, and O2 saturation 97%. GENERAL: The patient is a very unfortunate 41-year-old gentleman, in no apparent respiratory distress. Awake and alert. Answers to my questions appropriately. HEENT: Atraumatic and normocephalic. Anicteric. Pupils are equal, round, and reactive to light and accommodation. Extraocular muscles intact. NECK: JVP less than 5 cm. No carotid bruit. Carotid upstrokes 2+ bilaterally. CARDIOVASCULAR: Normal S1 and S2. Regular rate and rhythm. No murmurs, gallops, or rubs. PMI is at fourth intercostal space at the midclavicular line. LUNGS: Clear to auscultation bilaterally. ABDOMEN: Soft, nontender, and nondistended. No hepatosplenomegaly. Positive bowel sounds. EXTREMITIES: No evidence of edema, clubbing, or cyanosis. LABORATORY AND DIAGNOSTIC FINDINGS: WBC 7.5, hemoglobin 13.8, hematocrit 40.7, and platelet count 345. Sodium 141, potassium 4.2, chloride 105, bicarbonate 27, BUN of 17, creatinine 1.0, and glucose 107. Calcium is 9.1. Troponin I is 0.0. ProBNP was 9. INR is 1.0. A 12-lead electrocardiogram showed sinus rhythm at a rate of 80. No ST and T-wave abnormalities. A brain MRI showed no evidence of acute infarct, hemorrhage, mass effect, midline shift, or cortical edema. ASSESSMENT AND PLAN: 1. The patient is a very pleasant 41-year-old gentleman, seen in Cardiology consultation for presumptive diagnosis of syncope. We will continue with a syncopal workup including orthostatic vitals, carotid artery duplex and Neurology evaluation. A 2D echocardiography in this patient has revealed normal LV systolic function with LVEF of 60% to 65% with no evidence of diastolic dysfunction. 2. Further diagnosis and therapeutic decision will be based on the results of the above test. 3. In the meantime, the patient will benefit from hydration. 4. Reconstellation of all the medication will be required as that potentially might explain his altered level of consciousness or syncope. 5. History of seizure disorder. 6. History of hypertension. 7. History of chronic obstructive pulmonary disease. 8. History of peripheral neuropathy. 9. History of head trauma. I would like to thank, Dr. Gavin, for allowing me to participate in care of this patient. Christiano Mckinley M.D. DR: OMER JOB#: [id number] CC:
[2017-04-25 04:00] VITALS: BP 104/52
[2017-04-25] MEDS: QUEtiapine 200mg tab ORAL SCH ×3 (05:45→21:47)
[2017-04-25 07:47] LABS: BASOPHILS % (AUTO) 1.2 % (0.0-2.0); EOSINOPHILS % (AUTO) 3.4 % (0.0-3.0); LYMPHOCYTES % (AUTO) 26.7 % (20.0-45.0); MEAN CORPUSCULAR HEMOGLOBIN 34.8 PG (27.0-31.0); MEAN CORPUSCULAR HGB CONC 34.2 G/DL (32.0-36.0); MEAN CORPUSCULAR VOLUME 102 FL (80-99); MEAN PLATELET VOLUME 7.1 FL (6.5-10.1); MONOCYTES % (AUTO) 5.3 % (1.0-10.0); NEUTROPHILS % (AUTO) 63.3 % (45.0-75.0); PLATELET COUNT 320 K/UL (150-450); RED BLOOD COUNT 4.05 M/UL (4.70-6.10); RED CELL DISTRIBUTION WIDTH 10.5 % (11.6-14.8); WHITE BLOOD COUNT 6.3 K/UL (4.8-10.8)
[2017-04-25 08:00] VITALS: BP 100/62
[2017-04-25 08:30] LABS: ALANINE AMINOTRANSFERASE 10 U/L (12-78); ALBUMIN/GLOBULIN RATIO 1.1 (1.0-2.7); ANION GAP 6 mmol/L (5-15); ASPARTATE AMINO TRANSFERASE 10 U/L (15-37); CALCIUM 8.8 MG/DL (8.5-10.1); CARBON DIOXIDE 26 MMOL/L (21-32); CHLORIDE 109 MMOL/L (98-107); CHOLESTEROL 207 MG/DL (< 200); CHOLESTEROL/HDL RATIO 7.1 (3.3-4.4); CREATININE 0.9 MG/DL (0.55-1.30); GLOMERULAR FILTRATION RATE > 60 mL/min (>60); SODIUM 141 MMOL/L (136-145); THYROID STIMULATING HORMONE 1.452 uiU/mL (0.358-3.740); TOTAL PROTEIN 6.8 G/DL (6.4-8.2)
[2017-04-25] MEDS ORDERED: Aspirin Baby 81mg ORAL SCH (09:00)
--- NOTE | 2017-04-25 09:21 | General Progress Note ---
Assessment/Plan Problem List: (1) Priapism, drug-induced ICD Codes: N48.33 - Priapism, drug-induced SNOMED: 954421270994365 (2) Syncope ICD Codes: R55 - Syncope and collapse SNOMED: 462403237 (3) Chronic pain ICD Codes: G89.29 - Other chronic pain SNOMED: 08769189 (4) HTN (hypertension) ICD Codes: I10 - Essential (primary) hypertension SNOMED: 31015251 Status: stable, progressing, tolerating diet Assessment/Plan ot pt diet cardio neuro eval uro f/u cbc bmp am Subjective Constitutional: Reports: weakness Allergies: Coded Allergies: CHLORPROMAZINE (Verified Allergy, Unknown, 04/20/17) DIVALPROEX SODIUM (Verified Allergy, Unknown, 04/17/17) All Systems: reviewed and negative except above Subjective calm i n bed sl weak Objective Last 24 Hour Vital Signs Date Time Temp Pulse Resp B/P (MAP) Pulse Ox O2 Delivery O2 Flow Rate FiO2 04/25/17 08:12 88 18 Room Air 21 04/25/17 08:00 98.0 70 21 100/62 97 04/25/17 04:00 98.0 61 18 104/52 96 04/25/17 03:50 67 04/25/17 00:00 97.4 78 18 110/63 96 04/25/17 00:00 79 04/25/17 00:00 61 77 04/24/17 20:54 97.7 04/24/17 20:01 83 18 Room Air 04/24/17 20:00 76 04/24/17 20:00 98.2 84 20 129/68 99 04/24/17 16:00 71 04/24/17 16:00 97.7 74 20 138/73 98 Room Air 04/24/17 12:00 97.7 74 20 123/79 98 Room Air Laboratory Tests 04/24/17 14:03: Troponin I 0.000, Carbamazepine (Tegretol) Level 5.1 04/25/17 05:25: White Blood Count 6.3, Red Blood Count 4.05L, Hemoglobin 14.1L, Hematocrit 41.2L , Mean Corpuscular Volume 102H, Mean Corpuscular Hemoglobin 34.8H, Mean Corpuscular Hemoglobin Concent 34.2, Red Cell Distribution Width 10.5L, Platelet Count 320, Mean Platelet Volume 7.1, Neutrophils (%) (Auto) 63.3, Lymphocytes (%) (Auto) 26.7, Monocytes (%) (Auto) 5.3, Eosinophils (%) (Auto) 3.4H, Basophils (%) (Auto) 1.2, Prothrombin Time 10.0, Prothromb Time International Ratio 1.0, Activated Partial Thromboplast Time 36H, Sodium Level 141, Potassium Level 4.0, Chloride Level 109H, Carbon Dioxide Level 26, Anion Gap 6, Blood Urea Nitrogen 17, Creatinine 0.9, Estimat Glomerular Filtration Rate > 60, Glucose Level 130H, Calcium Level 8.8, Total Bilirubin 0.1L, Aspartate Amino Transf (AST/SGOT) 10L, Alanine Aminotransferase (ALT/SGPT) 10L, Alkaline Phosphatase 72, Total Protein 6.8, Albumin 3.5, Globulin 3.3, Albumin/ Globulin Ratio 1.1, Triglycerides Level 183H, Cholesterol Level 207H, LDL Cholesterol 141H, HDL Cholesterol 29L, Cholesterol/HDL Ratio 7.1H, Thyroid Stimulating Hormone (TSH) 1.452 Height (Feet): 5 Height (Inches): 11.00 Weight (Pounds): 180 General Appearance: alert EENT: normal ENT inspection Neck: normal alignment Cardiovascular: normal peripheral pulses, normal rate, regular rhythm Respiratory/Chest: chest wall non-tender, lungs clear, normal breath sounds Abdomen: normal bowel sounds, non tender, soft Extremities: normal inspection Edema: no edema noted Arm (L), no edema noted Arm (R), no edema noted Leg (L), no edema noted Leg (R), no edema noted Pedal (L), no edema noted Pedal (R), no edema noted Generalized Neurologic: responsive, motor weakness Skin: normal pigmentation, warm/dry JUAN FROST Apr 25, 2017 09:21
[2017-04-25] MEDS: Benztropine 1mg tab ORAL SCH ×2 (09:45→17:46)
[2017-04-25] MEDS: carBAMazepine 200mg tab ORAL SCH ×3 (09:45→17:46)
[2017-04-25] MEDS: Heparin 5000 units/ml inj SUBQ SCH ×2 (09:47→21:53)
[2017-04-25 12:00] VITALS: BP 115/70
[2017-04-25] MEDS: Morphine Sulfate 2mg/ml Inj IVP PRN ×2 (13:34→21:59)
[2017-04-25 16:00] VITALS: BP 121/73
--- NOTE | 2017-04-25 16:46 | Pulmonology Progress Note ---
Assessment/Plan Problems: (1) Syncope (2) Priapism (3) COPD (chronic obstructive pulmonary disease) (4) HTN (hypertension) (5) Epilepsia (6) Psychiatric disorder Assessment/Plan improivng all noted All medications and treatment were reviewed. check labs psych evaluation. Subjective ROS Limited/Unobtainable: No Constitutional: Reports: no symptoms Respiratory: Reports: no symptoms Allergies: Coded Allergies: CHLORPROMAZINE (Verified Allergy, Unknown, 04/20/17) DIVALPROEX SODIUM (Verified Allergy, Unknown, 04/17/17) Objective Last 24 Hour Vital Signs Date Time Temp Pulse Resp B/P (MAP) Pulse Ox O2 Delivery O2 Flow Rate FiO2 04/25/17 12:00 97.7 75 21 115/70 98 04/25/17 11:52 68 04/25/17 08:14 70 04/25/17 08:12 88 18 Room Air 21 04/25/17 08:00 98.0 70 21 100/62 97 04/25/17 04:00 98.0 61 18 104/52 96 04/25/17 03:50 67 04/25/17 00:00 97.4 78 18 110/63 96 04/25/17 00:00 79 04/25/17 00:00 61 77 04/24/17 20:54 97.7 04/24/17 20:01 83 18 Room Air 04/24/17 20:00 76 04/24/17 20:00 98.2 84 20 129/68 99 Objective General Appearance: WD/WN Lines, tubes and drains: peripheral, HEENT: normocephalic, atraumatic Neck: non-tender, normal alignment Respiratory/Chest: chest wall non-tender, lungs clear, normal breath sounds Breasts: no masses Cardiovascular/Chest: normal rate Abdomen: normal bowel sounds Extremities: normal range of motion Cardiovascular: normal rate Laboratory Tests 04/25/17 05:25: White Blood Count 6.3, Red Blood Count 4.05L, Hemoglobin 14.1L, Hematocrit 41.2L , Mean Corpuscular Volume 102H, Mean Corpuscular Hemoglobin 34.8H, Mean Corpuscular Hemoglobin Concent 34.2, Red Cell Distribution Width 10.5L, Platelet Count 320, Mean Platelet Volume 7.1, Neutrophils (%) (Auto) 63.3, Lymphocytes (%) (Auto) 26.7, Monocytes (%) (Auto) 5.3, Eosinophils (%) (Auto) 3.4H, Basophils (%) (Auto) 1.2, Prothrombin Time 10.0, Prothromb Time International Ratio 1.0, Activated Partial Thromboplast Time 36H, Sodium Level 141, Potassium Level 4.0, Chloride Level 109H, Carbon Dioxide Level 26, Anion Gap 6, Blood Urea Nitrogen 17, Creatinine 0.9, Estimat Glomerular Filtration Rate > 60, Glucose Level 130H, Calcium Level 8.8, Total Bilirubin 0.1L, Aspartate Amino Transf (AST/SGOT) 10L, Alanine Aminotransferase (ALT/SGPT) 10L, Alkaline Phosphatase 72, Total Protein 6.8, Albumin 3.5, Globulin 3.3, Albumin/ Globulin Ratio 1.1, Triglycerides Level 183H, Cholesterol Level 207H, LDL Cholesterol 141H, HDL Cholesterol 29L, Cholesterol/HDL Ratio 7.1H, Thyroid Stimulating Hormone (TSH) 1.452 Current Medications Medications (Trade) Dose Ordered Sig/Sharon Route PRN Reason Start Time Stop Time Status Last Admin Dose Admin Acetaminophen (Tylenol) 650 mg Q4H PRN ORAL fever 04/24/17 18:45 05/24/17 06:44 Al Hydroxide/Mg Hydroxide (Mylanta II) 30 ml Q6H PRN ORAL dyspepsia 04/24/17 18:45 05/24/17 06:44 Albuterol/ Ipratropium (Albuterol/ Ipratropium) 3 ml Q4H PRN HHN Shortness of Breath 04/24/17 18:45 04/29/17 18:44 Aspirin (ASA) 81 mg DAILY ORAL 04/25/17 09:00 05/24/17 08:59 04/25/17 09:11 Benztropine Mesylate (Cogentin) 2 mg BID ORAL 04/25/17 09:00 05/24/17 17:59 04/25/17 09:45 Carbamazepine (TEGretol) 200 mg TID ORAL 04/25/17 09:00 05/24/17 08:59 04/25/17 13:02 Clonidine HCl (Catapres) 0.1 mg Q4H PRN ORAL SBP > 160 04/24/17 18:45 05/24/17 06:44 Dextrose (Dextrose 50%) STAT PRN IV Hypoglycemia 04/24/17 18:45 05/24/17 18:44 Gabapentin (Neurontin) 300 mg EVERY 8 HOURS ORAL 04/24/17 22:00 05/24/17 13:59 04/25/17 13:01 Heparin Sodium (Porcine) (Heparin 5000 units/ml) 5,000 units EVERY 12 HOURS SUBQ 04/24/17 21:00 05/24/17 08:59 04/25/17 09:47 Lamotrigine (LaMICtal) 100 mg BID ORAL 04/24/17 18:45 05/24/17 18:44 04/25/17 09:10 Levetiracetam (Keppra) 1,500 mg EVERY 12 HOURS ORAL 04/24/17 21:00 05/24/17 20:59 04/25/17 09:11 Lorazepam (Ativan 2mg/ml 1ml) 0.5 mg Q4H PRN IV For Anxiety 04/24/17 18:45 05/01/17 06:44 Morphine Sulfate (Morphine Sulfate) 1 mg Q4H PRN IVP For Pain 7-10 04/24/17 18:45 05/01/17 18:44 04/25/17 13:34 Nicotine (Nicoderm) 1 patch DAILY TDERMAL 04/25/17 09:00 05/24/17 08:59 04/25/17 09:46 Nitroglycerin (Ntg) 0.4 mg Q5M X 3 DOSES PRN SL Prn Chest Pain 04/24/17 18:15 05/24/17 06:44 Ondansetron HCl (Zofran) 4 mg Q6H PRN IVP Nausea & Vomiting 04/24/17 18:45 05/24/17 06:44 Polyethylene Glycol (Miralax) 17 gm HSPRN PRN ORAL Constipation 04/24/17 18:45 05/24/17 18:44 Quetiapine Fumarate (SEROquel) 200 mg EVERY 8 HOURS ORAL 04/24/17 22:00 05/24/17 13:59 04/25/17 13:01 Temazepam (Restoril) 15 mg HSPRN PRN ORAL Insomnia 04/24/17 18:45 05/01/17 18:44 Tramadol HCl (Ultram) 50 mg Q6H PRN ORAL For Pain Level 4-6 04/24/17 18:45 05/01/17 06:44 JJ YUNG Apr 25, 2017 16:46
[2017-04-25] MEDS ORDERED: Tubing IV Secondary IV ONE (17:21)
[2017-04-25] MEDS ORDERED: Nitroglycerin Subl 0.4mg tab SL PRN (20:15)
[2017-04-25 20:35] VITALS: BP 116/73
[2017-04-25] MEDS ORDERED: Albuterol/Ipratropium 3ml neb HHN PRN (22:45)
[2017-04-25] MEDS ORDERED: LORazepam Inj 2mg/ml 1ml IV PRN (22:45)
--- NOTE | 2017-04-25 23:49 | Cardiology Progress Note ---
Assessment/Plan Assessment/Plan 1. Syncope, orthostatic vitals negative, 2D echo reveals normal LV function. 2. History of seizure disorder. 3. History of hypertension. Subjective Subjective Transferred to med-surg unit. No cardiac events. Objective Last 24 Hour Vital Signs Date Time Temp Pulse Resp B/P (MAP) Pulse Ox O2 Delivery O2 Flow Rate FiO2 04/25/17 20:35 96.4 97 19 116/73 95 04/25/17 19:25 91 18 Nasal Cannula 2.0 28 04/25/17 19:25 97 Nasal Cannula 2.0 28 04/25/17 19:25 Nasal Cannula 2.0 28 04/25/17 16:00 97.8 82 20 121/73 99 04/25/17 15:14 88 04/25/17 14:00 80 86 04/25/17 12:00 97.7 75 21 115/70 98 04/25/17 11:52 68 04/25/17 08:14 70 04/25/17 08:12 88 18 Room Air 21 04/25/17 08:00 98.0 70 21 100/62 97 04/25/17 04:00 98.0 61 18 104/52 96 04/25/17 03:50 67 04/25/17 00:00 97.4 78 18 110/63 96 04/25/17 00:00 79 04/25/17 00:00 61 77 Intake and Output 04/25/17 04/26/17 19:00 07:00 Intake Total 700 ml Balance 700 ml Intake Oral 700 ml Laboratory Tests Test 04/25/17 05:25 White Blood Count 6.3 K/UL (4.8-10.8) Red Blood Count 4.05 M/UL (4.70-6.10) L Hemoglobin 14.1 G/DL (14.2-18.0) L Hematocrit 41.2 % (42.0-52.0) L Mean Corpuscular Volume 102 FL (80-99) H Mean Corpuscular Hemoglobin 34.8 PG (27.0-31.0) H Mean Corpuscular Hemoglobin Concent 34.2 G/DL (32.0-36.0) Red Cell Distribution Width 10.5 % (11.6-14.8) L Platelet Count 320 K/UL (150-450) Mean Platelet Volume 7.1 FL (6.5-10.1) Neutrophils (%) (Auto) 63.3 % (45.0-75.0) Lymphocytes (%) (Auto) 26.7 % (20.0-45.0) Monocytes (%) (Auto) 5.3 % (1.0-10.0) Eosinophils (%) (Auto) 3.4 % (0.0-3.0) H Basophils (%) (Auto) 1.2 % (0.0-2.0) Prothrombin Time 10.0 SEC (9.30-11.50) Prothromb Time International Ratio 1.0 (0.9-1.1) Activated Partial Thromboplast Time 36 SEC (23-33) H Sodium Level 141 MMOL/L (136-145) Potassium Level 4.0 MMOL/L (3.5-5.1) Chloride Level 109 MMOL/L (98-107) H Carbon Dioxide Level 26 MMOL/L (21-32) Anion Gap 6 mmol/L (5-15) Blood Urea Nitrogen 17 mg/dL (7-18) Creatinine 0.9 MG/DL (0.55-1.30) Estimat Glomerular Filtration Rate > 60 mL/min (>60) Glucose Level 130 MG/DL (74-106) H Calcium Level 8.8 MG/DL (8.5-10.1) Total Bilirubin 0.1 MG/DL (0.2-1.0) L Aspartate Amino Transf (AST/SGOT) 10 U/L (15-37) L Alanine Aminotransferase (ALT/SGPT) 10 U/L (12-78) L Alkaline Phosphatase 72 U/L (46-116) Total Protein 6.8 G/DL (6.4-8.2) Albumin 3.5 G/DL (3.4-5.0) Globulin 3.3 g/dL Albumin/Globulin Ratio 1.1 (1.0-2.7) Triglycerides Level 183 MG/DL (30-150) H Cholesterol Level 207 MG/DL (< 200) H LDL Cholesterol 141 mg/dL (<100) H HDL Cholesterol 29 MG/DL (40-60) L Cholesterol/HDL Ratio 7.1 (3.3-4.4) H Thyroid Stimulating Hormone (TSH) 1.452 uiU/mL (0.358-3.740) Objective HEENT: Atraumatic and normocephalic. Anicteric. Pupils are equal, round, and reactive to light and accommodation. Extraocular muscles intact. NECK: JVP less than 5 cm. No carotid bruit. Carotid upstrokes 2+ bilaterally. CARDIOVASCULAR: Normal S1 and S2. Regular rate and rhythm. No murmurs, gallops, or rubs. PMI is at fourth intercostal space at the midclavicular line. LUNGS: Clear to auscultation bilaterally. ABDOMEN: Soft, nontender, and nondistended. No hepatosplenomegaly. Positive bowel sounds. EXTREMITIES: No evidence of edema, clubbing, or cyanosis. DARIANA SANTO Apr 25, 2017 23:49
[2017-04-26 00:26] VITALS: BP 118/63
[2017-04-26] MEDS ORDERED: Mylanta II UD 30ml ORAL PRN (00:45)
[2017-04-26] MEDS ORDERED: traMADol 50mg tab ORAL PRN (00:45)
[2017-04-26] MEDS: Morphine Sulfate 2mg/ml Inj IVP PRN ×4 (04:32→22:10)
[2017-04-26 04:33] VITALS: BP 114/65
[2017-04-26] MEDS: QUEtiapine 200mg tab ORAL SCH ×3 (06:03→22:09)
[2017-04-26 08:08] VITALS: BP 102/59
--- NOTE | 2017-04-26 08:19 | General Progress Note ---
Assessment/Plan Problem List: (1) Priapism, drug-induced ICD Codes: N48.33 - Priapism, drug-induced SNOMED: 129060553239779 (2) Syncope ICD Codes: R55 - Syncope and collapse SNOMED: 969062484 (3) Chronic pain ICD Codes: G89.29 - Other chronic pain SNOMED: 29885545 (4) HTN (hypertension) ICD Codes: I10 - Essential (primary) hypertension SNOMED: 80478484 Status: stable, progressing, tolerating diet Assessment/Plan ot pt diet cardio neuro eval uro f/u cbc bmp am Subjective Constitutional: Reports: weakness Allergies: Coded Allergies: CHLORPROMAZINE (Verified Allergy, Unknown, 04/20/17) DIVALPROEX SODIUM (Verified Allergy, Unknown, 04/17/17) All Systems: reviewed and negative except above Subjective calm in bed sl weak Objective Last 24 Hour Vital Signs Date Time Temp Pulse Resp B/P (MAP) Pulse Ox O2 Delivery O2 Flow Rate FiO2 04/26/17 08:08 97.7 68 20 102/59 99 04/26/17 07:35 68 18 04/26/17 07:25 Nasal Cannula 2.0 28 04/26/17 07:25 97 Nasal Cannula 2.0 28 04/26/17 04:33 97.0 86 18 114/65 96 04/26/17 00:26 97.9 85 17 118/63 98 04/26/17 00:00 Room Air 04/25/17 21:30 75 84 04/25/17 20:35 96.4 97 19 116/73 95 04/25/17 20:00 Room Air 04/25/17 19:25 91 18 Nasal Cannula 2.0 28 04/25/17 19:25 97 Nasal Cannula 2.0 28 04/25/17 19:25 Nasal Cannula 2.0 28 04/25/17 16:00 97.8 82 20 121/73 99 04/25/17 15:14 88 04/25/17 14:00 80 86 04/25/17 12:00 97.7 75 21 115/70 98 04/25/17 11:52 68 Height (Feet): 5 Height (Inches): 11.00 Weight (Pounds): 180 General Appearance: lethargic EENT: normal ENT inspection Neck: normal alignment Cardiovascular: normal peripheral pulses, normal rate, regular rhythm Respiratory/Chest: chest wall non-tender, lungs clear, normal breath sounds Abdomen: normal bowel sounds, non tender, soft Extremities: normal inspection Edema: no edema noted Arm (L), no edema noted Arm (R), no edema noted Leg (L), no edema noted Leg (R), no edema noted Pedal (L), no edema noted Pedal (R), no edema noted Generalized Neurologic: motor weakness Skin: normal pigmentation, warm/dry JUAN FROST Apr 26, 2017 08:19
[2017-04-26] MEDS: Benztropine 1mg tab ORAL SCH ×2 (09:26→18:07)
[2017-04-26] MEDS: carBAMazepine 200mg tab ORAL SCH ×3 (09:28→18:07)
[2017-04-26] MEDS: Aspirin Baby 81mg ORAL SCH (09:28)
[2017-04-26] MEDS: Heparin 5000 units/ml inj SUBQ SCH ×2 (09:29→22:11)
[2017-04-26 11:48] VITALS: BP 117/64
--- NOTE | 2017-04-26 14:13 | Pulmonology Progress Note ---
Assessment/Plan Problems: (1) Syncope (2) Priapism (3) COPD (chronic obstructive pulmonary disease) (4) HTN (hypertension) (5) Epilepsia (6) Psychiatric disorder Assessment/Plan wants nutrition evaluation pulse oximeter on room air improving all noted All medications and treatment were reviewed. check labs psych evaluation. Subjective ROS Limited/Unobtainable: Yes Constitutional: Reports: no symptoms HEENT: Repors: no symptoms Allergies: Coded Allergies: CHLORPROMAZINE (Verified Allergy, Unknown, 04/20/17) DIVALPROEX SODIUM (Verified Allergy, Unknown, 04/17/17) Objective Last 24 Hour Vital Signs Date Time Temp Pulse Resp B/P (MAP) Pulse Ox O2 Delivery O2 Flow Rate FiO2 04/26/17 14:08 82 76 04/26/17 12:17 89 18 99 Nasal Cannula 2.0 28 04/26/17 12:04 70 16 Nasal Cannula 2.0 28 04/26/17 11:48 98.1 74 20 117/64 100 04/26/17 08:08 97.7 68 20 102/59 99 04/26/17 07:35 68 18 04/26/17 07:25 Nasal Cannula 2.0 28 04/26/17 07:25 97 Nasal Cannula 2.0 28 04/26/17 04:33 97.0 86 18 114/65 96 04/26/17 00:26 97.9 85 17 118/63 98 04/26/17 00:00 Room Air 04/25/17 21:30 75 84 04/25/17 20:35 96.4 97 19 116/73 95 04/25/17 20:00 Room Air 04/25/17 19:25 91 18 Nasal Cannula 2.0 28 04/25/17 19:25 97 Nasal Cannula 2.0 28 04/25/17 19:25 Nasal Cannula 2.0 28 04/25/17 16:00 97.8 82 20 121/73 99 04/25/17 15:14 88 Intake and Output 04/26/17 04/27/17 19:00 07:00 Intake Total 460 ml Balance 460 ml Intake Oral 460 ml Objective General Appearance: WD/WN Lines, tubes and drains: peripheral, HEENT: normocephalic, atraumatic Neck: non-tender, normal alignment Respiratory/Chest: chest wall non-tender, lungs clear, normal breath sounds Breasts: no masses Cardiovascular/Chest: normal rate Abdomen: normal bowel sounds Extremities: normal range of motion Microbiology Date/Time Source Procedure Growth Status 04/23/17 23:40 Nasal Nares MRSA Culture - Final NO METHICILLIN RESISTANT STAPH AUREUS... Complete 04/23/17 23:40 Rectum VRE Culture - Final NO VANCOMYCIN RESISTANT ENTEROCOCCUS ... Complete Current Medications Medications (Trade) Dose Ordered Sig/Sharon Route PRN Reason Start Time Stop Time Status Last Admin Dose Admin Acetaminophen (Tylenol) 650 mg Q4H PRN ORAL fever 04/25/17 22:45 05/24/17 06:44 Al Hydroxide/Mg Hydroxide (Mylanta II) 30 ml Q6H PRN ORAL dyspepsia 04/26/17 00:45 05/24/17 06:44 Albuterol/ Ipratropium (Albuterol/ Ipratropium) 3 ml Q4H PRN HHN Shortness of Breath 04/25/17 22:45 04/29/17 18:44 04/26/17 11:58 Aspirin (ASA) 81 mg DAILY ORAL 04/26/17 09:00 05/24/17 08:59 04/26/17 09:28 Benztropine Mesylate (Cogentin) 2 mg BID ORAL 04/26/17 09:00 05/24/17 17:59 04/26/17 09:26 Carbamazepine (TEGretol) 200 mg TID ORAL 04/26/17 09:00 05/24/17 08:59 04/26/17 13:29 Clonidine HCl (Catapres) 0.1 mg Q4H PRN ORAL SBP > 160 04/25/17 22:45 05/24/17 06:44 Dextrose (Dextrose 50%) STAT PRN IV Hypoglycemia 04/26/17 18:45 05/24/17 18:44 Gabapentin (Neurontin) 300 mg EVERY 8 HOURS ORAL 04/25/17 22:00 05/24/17 13:59 04/26/17 13:28 Heparin Sodium (Porcine) (Heparin 5000 units/ml) 5,000 units EVERY 12 HOURS SUBQ 04/25/17 21:00 05/24/17 08:59 04/26/17 09:29 Lamotrigine (LaMICtal) 100 mg BID ORAL 04/26/17 09:00 05/24/17 18:44 04/26/17 09:27 Levetiracetam (Keppra) 1,500 mg EVERY 12 HOURS ORAL 04/25/17 21:00 05/24/17 20:59 04/26/17 09:27 Lorazepam (Ativan 2mg/ml 1ml) 0.5 mg Q4H PRN IV For Anxiety 04/25/17 22:45 05/01/17 06:44 Morphine Sulfate (Morphine Sulfate) 1 mg Q4H PRN IVP For Pain 7-04/25/17 22:45 05/01/17 18:44 04/26/17 09:30 Nicotine (Nicoderm) 1 patch DAILY TDERMAL 04/26/17 09:00 05/24/17 08:59 04/26/17 09:26 Nitroglycerin (Ntg) 0.4 mg Q5M X 3 DOSES PRN SL Prn Chest Pain 04/25/17 20:15 05/24/17 06:44 Ondansetron HCl (Zofran) 4 mg Q6H PRN IVP Nausea & Vomiting 04/26/17 00:45 05/24/17 06:44 Polyethylene Glycol (Miralax) 17 gm HSPRN PRN ORAL Constipation 04/26/17 18:45 05/24/17 18:44 Quetiapine Fumarate (SEROquel) 200 mg EVERY 8 HOURS ORAL 04/25/17 22:00 05/24/17 13:59 04/26/17 13:28 Temazepam (Restoril) 15 mg HSPRN PRN ORAL Insomnia 04/26/17 18:45 05/01/17 18:44 Tramadol HCl (Ultram) 50 mg Q6H PRN ORAL For Pain Level 4-6 04/26/17 00:45 05/01/17 06:44 JJ YUNG Apr 26, 2017 14:13
[2017-04-26 15:37] VITALS: BP 119/68
[2017-04-26] MEDS ORDERED: Miralax 17gm pkt ORAL PRN (18:45)
[2017-04-26 20:00] VITALS: BP 112/64
[2017-04-27] VITALS: BP 151/77
[2017-04-27 04:00] VITALS: BP 98/64
[2017-04-27] MEDS: QUEtiapine 200mg tab ORAL SCH ×2 (05:34→14:08)
[2017-04-27] MEDS: Morphine Sulfate 2mg/ml Inj IVP PRN ×4 (05:34→18:08)
[2017-04-27 06:29] LABS: BASOPHILS % (AUTO) 1.2 % (0.0-2.0); EOSINOPHILS % (AUTO) 3.4 % (0.0-3.0); LYMPHOCYTES % (AUTO) 27.1 % (20.0-45.0); MEAN CORPUSCULAR HGB CONC 35.3 G/DL (32.0-36.0); MEAN CORPUSCULAR VOLUME 102 FL (80-99); MEAN PLATELET VOLUME 7.4 FL (6.5-10.1); MONOCYTES % (AUTO) 6.9 % (1.0-10.0); NEUTROPHILS % (AUTO) 61.5 % (45.0-75.0); PLATELET COUNT 309 K/UL (150-450); RED CELL DISTRIBUTION WIDTH 10.7 % (11.6-14.8); WHITE BLOOD COUNT 8.2 K/UL (4.8-10.8)
[2017-04-27 06:52] LABS: ALANINE AMINOTRANSFERASE 15 U/L (12-78); ALBUMIN/GLOBULIN RATIO 1.1 (1.0-2.7); ANION GAP 6 mmol/L (5-15); ASPARTATE AMINO TRANSFERASE 9 U/L (15-37); CALCIUM 8.6 MG/DL (8.5-10.1); CARBON DIOXIDE 27 MMOL/L (21-32); CHLORIDE 108 MMOL/L (98-107); CREATININE 0.9 MG/DL (0.55-1.30); GLOMERULAR FILTRATION RATE > 60 mL/min (>60); MAGNESIUM 1.8 MG/DL (1.8-2.4); PHOSPHORUS 3.3 MG/DL (2.5-4.9); POTASSIUM 4.3 MMOL/L (3.5-5.1); SODIUM 141 MMOL/L (136-145); TOTAL PROTEIN 6.1 G/DL (6.4-8.2)
[2017-04-27 07:04] LABS: ANION GAP 6 mmol/L (5-15); CALCIUM 8.7 MG/DL (8.5-10.1); CARBON DIOXIDE 27 MMOL/L (21-32); CHLORIDE 108 MMOL/L (98-107); CREATININE 0.9 MG/DL (0.55-1.30); GLOMERULAR FILTRATION RATE > 60 mL/min (>60); POTASSIUM 4.6 MMOL/L (3.5-5.1); SODIUM 141 MMOL/L (136-145)
[2017-04-27 08:00] VITALS: BP 101/56
[2017-04-27] MEDS: Benztropine 1mg tab ORAL SCH ×2 (09:27→18:08)
[2017-04-27] MEDS: Aspirin Baby 81mg ORAL SCH (09:28)
[2017-04-27] MEDS: carBAMazepine 200mg tab ORAL SCH ×3 (09:28→18:08)
[2017-04-27] MEDS: Heparin 5000 units/ml inj SUBQ SCH (09:29)
--- NOTE | 2017-04-27 09:38 | General Progress Note ---
Assessment/Plan Problem List: (1) Priapism, drug-induced ICD Codes: N48.33 - Priapism, drug-induced SNOMED: 595600093737895 (2) Syncope ICD Codes: R55 - Syncope and collapse SNOMED: 458358087 (3) Chronic pain ICD Codes: G89.29 - Other chronic pain SNOMED: 76677660 (4) HTN (hypertension) ICD Codes: I10 - Essential (primary) hypertension SNOMED: 98387707 Status: stable, progressing, tolerating diet Assessment/Plan ot pt diet cardio neuro eval uro f/u cbc bmp am dc plan snf Subjective Constitutional: Reports: weakness Allergies: Coded Allergies: CHLORPROMAZINE (Verified Allergy, Unknown, 04/20/17) DIVALPROEX SODIUM (Verified Allergy, Unknown, 04/17/17) All Systems: reviewed and negative except above Subjective calm in bed sl dizzy Objective Last 24 Hour Vital Signs Date Time Temp Pulse Resp B/P (MAP) Pulse Ox O2 Delivery O2 Flow Rate FiO2 04/27/17 08:00 98.4 73 17 101/56 99 04/27/17 07:20 70 16 Room Air 21 04/27/17 07:20 Room Air 21 04/27/17 07:20 96 Room Air 21 04/27/17 06:04 97.4 04/27/17 04:00 97.5 66 19 98/64 98 04/27/17 04:00 Nasal Cannula 2.0 04/27/17 00:00 97.4 83 19 151/77 98 04/27/17 00:00 Nasal Cannula 2.0 04/26/17 20:00 97.8 82 19 112/64 97 04/26/17 19:49 98 Nasal Cannula 2.0 28 04/26/17 19:49 74 18 Nasal Cannula 2.0 28 04/26/17 19:49 Nasal Cannula 2.0 28 04/26/17 15:37 98.7 76 20 119/68 98 04/26/17 14:08 82 76 04/26/17 12:17 89 18 99 Nasal Cannula 2.0 28 04/26/17 12:04 70 16 Nasal Cannula 2.0 28 04/26/17 11:48 98.1 74 20 117/64 100 Laboratory Tests 04/27/17 04:50: White Blood Count 8.2, Red Blood Count 3.70L, Hemoglobin 13.3L, Hematocrit 37.7L , Mean Corpuscular Volume 102H, Mean Corpuscular Hemoglobin 36.0H, Mean Corpuscular Hemoglobin Concent 35.3, Red Cell Distribution Width 10.7L, Platelet Count 309, Mean Platelet Volume 7.4, Neutrophils (%) (Auto) 61.5, Lymphocytes (%) (Auto) 27.1, Monocytes (%) (Auto) 6.9, Eosinophils (%) (Auto) 3.4H, Basophils (%) (Auto) 1.2, Sodium Level 141, Potassium Level 4.6, Chloride Level 108H, Carbon Dioxide Level 27, Anion Gap 6, Blood Urea Nitrogen 20H, Creatinine 0.9, Estimat Glomerular Filtration Rate > 60, Glucose Level 95, Calcium Level 8.7, Phosphorus Level 3.3, Magnesium Level 1.8, Total Bilirubin 0.1L, Aspartate Amino Transf (AST/SGOT) 9L, Alanine Aminotransferase (ALT/SGPT) 15, Alkaline Phosphatase 67, Total Protein 6.1L, Albumin 3.2L, Globulin 2.9, Albumin/Globulin Ratio 1.1 Height (Feet): 5 Height (Inches): 11.00 Weight (Pounds): 180 General Appearance: alert EENT: normal ENT inspection Neck: normal alignment Cardiovascular: normal peripheral pulses, normal rate, regular rhythm Respiratory/Chest: chest wall non-tender, lungs clear, normal breath sounds Abdomen: normal bowel sounds, non tender, soft Extremities: normal inspection Edema: no edema noted Arm (L), no edema noted Arm (R), no edema noted Leg (L), no edema noted Leg (R), no edema noted Pedal (L), no edema noted Pedal (R), no edema noted Generalized Neurologic: responsive, motor weakness Skin: normal pigmentation, warm/dry JUAN FROST Apr 27, 2017 09:38
--- NOTE | 2017-04-27 10:03 | Cardiology Report ---
APPROVED REPORT EXAM: Two-dimensional and M-mode echocardiogram with Doppler and color Doppler. INDICATION LEFT VENTRICULAR FUNCTION M-Mode DIMENSIONS IVSd1.2 (0.7-1.1cm)Left Atrium (MM)2.7 (1.6-4.0cm) LVDd4.9 (3.5-5.6cm)Aortic Root2.9 (2.0-3.7cm) PWd1.3 (0.7-1.1cm)Aortic Cusp Exc.1.4 (1.5-2.0cm) IVSs1.6 cm LVDs3.2 (2.5-4.0cm) PWs1.5 cm Normal left ventricular chamber size, systolic function and wall motion. Left ventricular ejection fraction estimated to be 60-65%. Mild left ventricular hypertrophy. No evidence of pericardial effusion. All other cardiac chamber sizes are within normal limits. Mild Focal aortic valve sclerosis with adequate cusp excursion. Mild Thickened mitral valve leaflets with normal excursion. Mild Mitral annulus and aortic root calcification. Normal pulmonic valve structure. IVC at normal size with physiologic collapse. A color flow and spectral Doppler study was performed and revealed: No aortic regurgitation Trace mitral regurgitation . Normal left ventricular diastolic function . Trace tricuspid regurgitation. Tricuspid systolic velocities suggests peak right ventricular systolic pressure of 19 mmHg. No Pulmonic regurgitation present.
[2017-04-27 12:00] VITALS: BP 106/72
--- NOTE | 2017-04-27 14:52 | Pulmonology Progress Note ---
Assessment/Plan Problems: (1) Syncope (2) Priapism (3) COPD (chronic obstructive pulmonary disease) (4) HTN (hypertension) (5) Epilepsia (6) Psychiatric disorder Assessment/Plan wants nutrition evaluation pulse oximeter on room air done improving all noted All medications and treatment were reviewed. check labs psych evaluation. dc planning Subjective ROS Limited/Unobtainable: No Constitutional: Reports: no symptoms HEENT: Repors: no symptoms Respiratory: Reports: no symptoms Allergies: Coded Allergies: CHLORPROMAZINE (Verified Allergy, Unknown, 04/20/17) DIVALPROEX SODIUM (Verified Allergy, Unknown, 04/17/17) Objective Last 24 Hour Vital Signs Date Time Temp Pulse Resp B/P (MAP) Pulse Ox O2 Delivery O2 Flow Rate FiO2 04/27/17 14:45 97.2 04/27/17 12:00 97.2 91 19 106/72 98 04/27/17 08:00 98.4 73 17 101/56 99 04/27/17 07:20 70 16 Room Air 21 04/27/17 07:20 Room Air 21 04/27/17 07:20 96 Room Air 21 04/27/17 04:00 97.5 66 19 98/64 98 04/27/17 04:00 Nasal Cannula 2.0 04/27/17 00:00 97.4 83 19 151/77 98 04/27/17 00:00 Nasal Cannula 2.0 04/26/17 20:00 97.8 82 19 112/64 97 04/26/17 19:49 98 Nasal Cannula 2.0 28 04/26/17 19:49 74 18 Nasal Cannula 2.0 28 04/26/17 19:49 Nasal Cannula 2.0 28 04/26/17 15:37 98.7 76 20 119/68 98 Intake and Output 04/27/17 04/28/17 19:00 07:00 Intake Total 200 ml Balance 200 ml Intake Oral 200 ml # Voids 1 Objective General Appearance: WD/WN Lines, tubes and drains: peripheral, HEENT: normocephalic, atraumatic Neck: non-tender, normal alignment Respiratory/Chest: chest wall non-tender, lungs clear, normal breath sounds Breasts: no masses Cardiovascular/Chest: normal rate Abdomen: normal bowel sounds Extremities: normal range of motion Laboratory Tests 04/27/17 04:50: White Blood Count 8.2, Red Blood Count 3.70L, Hemoglobin 13.3L, Hematocrit 37.7L , Mean Corpuscular Volume 102H, Mean Corpuscular Hemoglobin 36.0H, Mean Corpuscular Hemoglobin Concent 35.3, Red Cell Distribution Width 10.7L, Platelet Count 309, Mean Platelet Volume 7.4, Neutrophils (%) (Auto) 61.5, Lymphocytes (%) (Auto) 27.1, Monocytes (%) (Auto) 6.9, Eosinophils (%) (Auto) 3.4H, Basophils (%) (Auto) 1.2, Sodium Level 141, Potassium Level 4.6, Chloride Level 108H, Carbon Dioxide Level 27, Anion Gap 6, Blood Urea Nitrogen 20H, Creatinine 0.9, Estimat Glomerular Filtration Rate > 60, Glucose Level 95, Calcium Level 8.7, Phosphorus Level 3.3, Magnesium Level 1.8, Total Bilirubin 0.1L, Aspartate Amino Transf (AST/SGOT) 9L, Alanine Aminotransferase (ALT/SGPT) 15, Alkaline Phosphatase 67, Total Protein 6.1L, Albumin 3.2L, Globulin 2.9, Albumin/Globulin Ratio 1.1 Current Medications Medications (Trade) Dose Ordered Sig/Sharon Route PRN Reason Start Time Stop Time Status Last Admin Dose Admin Acetaminophen (Tylenol) 650 mg Q4H PRN ORAL fever 04/25/17 22:45 05/24/17 06:44 Al Hydroxide/Mg Hydroxide (Mylanta II) 30 ml Q6H PRN ORAL dyspepsia 04/26/17 00:45 05/24/17 06:44 Albuterol/ Ipratropium (Albuterol/ Ipratropium) 3 ml Q4H PRN HHN Shortness of Breath 04/25/17 22:45 04/29/17 18:44 04/26/17 11:58 Aspirin (ASA) 81 mg DAILY ORAL 04/26/17 09:00 05/24/17 08:59 04/27/17 09:28 Benztropine Mesylate (Cogentin) 2 mg BID ORAL 04/26/17 09:00 05/24/17 17:59 04/27/17 09:27 Carbamazepine (TEGretol) 200 mg TID ORAL 04/26/17 09:00 05/24/17 08:59 04/27/17 14:09 Clonidine HCl (Catapres) 0.1 mg Q4H PRN ORAL SBP > 160 04/25/17 22:45 05/24/17 06:44 Dextrose (Dextrose 50%) STAT PRN IV Hypoglycemia 04/26/17 18:45 05/24/17 18:44 Gabapentin (Neurontin) 300 mg EVERY 8 HOURS ORAL 04/25/17 22:00 05/24/17 13:59 04/27/17 14:08 Heparin Sodium (Porcine) (Heparin 5000 units/ml) 5,000 units EVERY 12 HOURS SUBQ 04/25/17 21:00 05/24/17 08:59 04/27/17 09:29 Lamotrigine (LaMICtal) 100 mg BID ORAL 04/26/17 09:00 05/24/17 18:44 04/27/17 09:29 Levetiracetam (Keppra) 1,500 mg EVERY 12 HOURS ORAL 04/25/17 21:00 05/24/17 20:59 04/27/17 09:28 Lorazepam (Ativan 2mg/ml 1ml) 0.5 mg Q4H PRN IV For Anxiety 04/25/17 22:45 05/01/17 06:44 Morphine Sulfate (Morphine Sulfate) 1 mg Q4H PRN IVP For Pain 11-2404/25/17 22:45 05/01/17 18:44 04/27/17 14:15 Nicotine (Nicoderm) 1 patch DAILY TDERMAL 04/26/17 09:00 05/24/17 08:59 04/27/17 09:29 Nitroglycerin (Ntg) 0.4 mg Q5M X 3 DOSES PRN SL Prn Chest Pain 04/25/17 20:15 05/24/17 06:44 Ondansetron HCl (Zofran) 4 mg Q6H PRN IVP Nausea & Vomiting 04/26/17 00:45 05/24/17 06:44 Polyethylene Glycol (Miralax) 17 gm HSPRN PRN ORAL Constipation 04/26/17 18:45 05/24/17 18:44 04/26/17 22:10 Quetiapine Fumarate (SEROquel) 200 mg EVERY 8 HOURS ORAL 04/25/17 22:00 05/24/17 13:59 04/27/17 14:08 Temazepam (Restoril) 15 mg HSPRN PRN ORAL Insomnia 04/26/17 18:45 05/01/17 18:44 Tramadol HCl (Ultram) 50 mg Q6H PRN ORAL For Pain Level 4-6 04/26/17 00:45 05/01/17 06:44 JJ YUNG Apr 27, 2017 14:52
[2017-04-27 16:00] VITALS: BP 124/79
--- NOTE | 2017-04-27 17:27 | Consultation ---
History of Present Illness General Chief Complaint: Syncope Reason for Consultation: inpatient manageemnt Present Illness HPI 41-year-old man, resident of a convalescent home, who was noted to have an episode of unresponsiveness. The patient recalled that he was sitting and suddenly he found himself on the ground. the pt also stated that he has episodes of priapism. stated that its unrelated to meds. the pt has poor insight. Allergies: Coded Allergies: CHLORPROMAZINE (Verified Allergy, Unknown, 04/20/17) DIVALPROEX SODIUM (Verified Allergy, Unknown, 04/17/17) Medication History Scheduled Aspirin* (Aspirin*), 81 MG ORAL DAILY, (Reported) Benztropine Mesylate* (Benztropine Mesylate*), 1 MG PO BID, (Reported) Carbamazepine (Tegretol*), 200 MG PO TID, (Reported) Chlorpromazine Hcl (Chlorpromazine Hcl), 20 MG PO TID, (Reported) Docusate Sodium* (Colace*), 100 MG ORAL DAILY, (Reported) Fish Oil (Fish Oil 1,000 mg Capsule), 1,000 MG ORAL DAILY Folic Acid* (Folic Acid*), 1 MG ORAL DAILY, (Reported) Gabapentin* (Gabapentin*), 300 MG ORAL EVERY 8 HOURS, (Reported) Lamotrigine* (Lamictal*), 50 MG ORAL BID, (Reported) Levetiracetam (Keppra), 500 MG ORAL EVERY 12 HOURS, (Reported) Levetiracetam* (Levetiracetam*), 1,500 MG ORAL TWICE A DAY, (Reported) Lorazepam* (Ativan*), 0.5 MG ORAL Q6HR, (Reported) Morphine HCl (Morphine Sulfate ER), 15 MG ORAL DAILY, (Reported) Multivitamin (Multi Vitamin Daily), 1 TAB ORAL DAILY, (Reported) Nicotine 14MG Patch* (Nicoderm Cq 14MG*), 1 EACH TD DAILY, (Reported) Quetiapine Fumarate* (Seroquel*), 200 MG ORAL EVERY 8 HOURS, (Reported) Ziprasidone Hcl* (Geodon*), 80 MG ORAL TWICE A DAY, (Reported) Scheduled PRN Acetaminophen* (Acetaminophen 325MG Tablet*), 650 MG ORAL Q4H PRN for Fever/ Headache/Mild Pain, (Reported) Al Hydroxide/mg Hydroxide (Mag-Al Plus Suspension), 30 ML PO Q6HR PRN for prn, ( Reported) Albuterol Sulfate (Ventolin Hfa), 2 PUFFS INH EVERY 6 HOURS PRN for Shortness of Breath, (Reported) Hydroxyzine Hcl (Hydroxyzine Hcl), 10 MG PO EVERY 8 HOURS PRN for Itching, ( Reported) Lorazepam* (Ativan*), 1 MG ORAL Q6HR PRN for prn, (Reported) Morphine 10mg/5ml Oral Soln* (Morphine 10mg/5ml Oral Soln*), 15 MG ORAL EVERY 12 HOURS PRN for For Pain, (Reported) Morphine Sulfate* (Morphine Sulfate*), 1 MG IV Q4HR PRN for Pain Scale (6-10), ( Reported) Ondansetron* (Zofran*), 4 MG ORAL Q6H PRN for Nausea & Vomiting, (Reported) Polyethylene Glycol 3350* (Polyethylene Glycol 3350*), 17 GM ORAL BEDTIME PRN for Constipation, (Reported) Tramadol Hcl* (Ultram*), 50 MG ORAL Q6H PRN for For Pain, (Reported) Zolpidem Tartrate* (Zolpidem Tartrate*), 5 MG ORAL BEDTIME PRN for Insomnia, ( Reported) Miscellaneous Medications Folic Acid/Vitamin B Comp W-C (Lia-Ramona Tablet), 1 MG PO, (Reported) Meclizine Hcl* (Meclizine*), 25 MG ORAL, (Reported) Discontinued Medications Acetaminophen* (Acetaminophen*), 27 MG ORAL Q4HR PRN for For Pain, (Reported) Discontinued Reason: MD discontinued med Benztropine Mesylate (Cogentin), 2 MG PO BID, (Reported) Discontinued Reason: MD discontinued med Carbamazepine* (Carbamazepine*), 300 MG ORAL EVERY 8 HOURS, (Reported) Discontinued Reason: MD discontinued med Levetiracetam (Levetiracetam), 750 MG ORAL BID, (Reported) Discontinued Reason: MD discontinued med Lorazepam* (Ativan*), 1 MG IM Q6HR, (Reported) Discontinued Reason: MD discontinued med Magnesium Hydroxide* (Milk Of Magnesia*), 30 ML ORAL DAILY PRN for Constipation, (Reported) Discontinued Reason: MD discontinued med Polyethylene Glycol 3350* (Miralax*), 17 GM ORAL DAILY, (Reported) Discontinued Reason: MD discontinued med Patient History Limited by: medical condition History Provided By: Patient, Medical Record, PMD Healthcare decision maker Resuscitation status Do Not Resuscitate Advanced Directive on File No Past Medical/Surgical History Past Medical/Surgical History: (1) ETOH abuse (2) SOB (shortness of breath) (3) Aspiration pneumonia (4) Tachycardia (5) Choreoathetosis (6) Hypoxia (7) Hip pain (8) Fall (9) Uncontrolled seizures (10) Recurrent knee pain (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, drug induced (25) Syncope Review of Systems Psychiatric: Reports: prior hx, anxiety, depressed feelings, emotional problems Physical Exam General Appearance: no apparent distress, alert, thin Neurologic: alert, oriented x 3, responsive, depressed affect Last 24 Hour Vital Signs Date Time Temp Pulse Resp B/P (MAP) Pulse Ox O2 Delivery O2 Flow Rate FiO2 04/27/17 16:00 97.6 95 18 124/79 97 04/27/17 14:45 97.2 04/27/17 12:00 97.2 91 19 106/72 98 04/27/17 08:00 98.4 73 17 101/56 99 04/27/17 07:20 70 16 Room Air 21 04/27/17 07:20 Room Air 21 04/27/17 07:20 96 Room Air 21 04/27/17 04:00 97.5 66 19 98/64 98 04/27/17 04:00 Nasal Cannula 2.0 04/27/17 00:00 97.4 83 19 151/77 98 04/27/17 00:00 Nasal Cannula 2.0 04/26/17 20:00 97.8 82 19 112/64 97 04/26/17 19:49 98 Nasal Cannula 2.0 28 04/26/17 19:49 74 18 Nasal Cannula 2.0 28 04/26/17 19:49 Nasal Cannula 2.0 28 Intake and Output 04/27/17 04/28/17 19:00 07:00 Intake Total 200 ml Balance 200 ml Intake Oral 200 ml # Voids 1 Laboratory Tests Test 04/27/17 04:50 White Blood Count 8.2 K/UL (4.8-10.8) Red Blood Count 3.70 M/UL (4.70-6.10) L Hemoglobin 13.3 G/DL (14.2-18.0) L Hematocrit 37.7 % (42.0-52.0) L Mean Corpuscular Volume 102 FL (80-99) H Mean Corpuscular Hemoglobin 36.0 PG (27.0-31.0) H Mean Corpuscular Hemoglobin Concent 35.3 G/DL (32.0-36.0) Red Cell Distribution Width 10.7 % (11.6-14.8) L Platelet Count 309 K/UL (150-450) Mean Platelet Volume 7.4 FL (6.5-10.1) Neutrophils (%) (Auto) 61.5 % (45.0-75.0) Lymphocytes (%) (Auto) 27.1 % (20.0-45.0) Monocytes (%) (Auto) 6.9 % (1.0-10.0) Eosinophils (%) (Auto) 3.4 % (0.0-3.0) H Basophils (%) (Auto) 1.2 % (0.0-2.0) Sodium Level 141 MMOL/L (136-145) Potassium Level 4.6 MMOL/L (3.5-5.1) Chloride Level 108 MMOL/L (98-107) H Carbon Dioxide Level 27 MMOL/L (21-32) Anion Gap 6 mmol/L (5-15) Blood Urea Nitrogen 20 mg/dL (7-18) H Creatinine 0.9 MG/DL (0.55-1.30) Estimat Glomerular Filtration Rate > 60 mL/min (>60) Glucose Level 95 MG/DL (74-106) Calcium Level 8.7 MG/DL (8.5-10.1) Phosphorus Level 3.3 MG/DL (2.5-4.9) Magnesium Level 1.8 MG/DL (1.8-2.4) Total Bilirubin 0.1 MG/DL (0.2-1.0) L Aspartate Amino Transf (AST/SGOT) 9 U/L (15-37) L Alanine Aminotransferase (ALT/SGPT) 15 U/L (12-78) Alkaline Phosphatase 67 U/L (46-116) Total Protein 6.1 G/DL (6.4-8.2) L Albumin 3.2 G/DL (3.4-5.0) L Globulin 2.9 g/dL Albumin/Globulin Ratio 1.1 (1.0-2.7) Height (Feet): 5 Height (Inches): 11.00 Weight (Pounds): 180 Medications Current Medications Medications (Trade) Dose Ordered Sig/Sharon Route PRN Reason Start Time Stop Time Status Last Admin Dose Admin Acetaminophen (Tylenol) 650 mg Q4H PRN ORAL fever 04/25/17 22:45 05/24/17 06:44 Al Hydroxide/Mg Hydroxide (Mylanta II) 30 ml Q6H PRN ORAL dyspepsia 04/26/17 00:45 05/24/17 06:44 Albuterol/ Ipratropium (Albuterol/ Ipratropium) 3 ml Q4H PRN HHN Shortness of Breath 04/25/17 22:45 04/29/17 18:44 04/26/17 11:58 Aspirin (ASA) 81 mg DAILY ORAL 04/26/17 09:00 05/24/17 08:59 04/27/17 09:28 Benztropine Mesylate (Cogentin) 2 mg BID ORAL 04/26/17 09:00 05/24/17 17:59 04/27/17 09:27 Carbamazepine (TEGretol) 200 mg TID ORAL 04/26/17 09:00 05/24/17 08:59 04/27/17 14:09 Clonidine HCl (Catapres) 0.1 mg Q4H PRN ORAL SBP > 160 04/25/17 22:45 05/24/17 06:44 Dextrose (Dextrose 50%) STAT PRN IV Hypoglycemia 04/26/17 18:45 05/24/17 18:44 Gabapentin (Neurontin) 300 mg EVERY 8 HOURS ORAL 04/25/17 22:00 05/24/17 13:59 04/27/17 14:08 Heparin Sodium (Porcine) (Heparin 5000 units/ml) 5,000 units EVERY 12 HOURS SUBQ 04/25/17 21:00 05/24/17 08:59 04/27/17 09:29 Lamotrigine (LaMICtal) 100 mg BID ORAL 04/26/17 09:00 05/24/17 18:44 04/27/17 09:29 Levetiracetam (Keppra) 1,500 mg EVERY 12 HOURS ORAL 04/25/17 21:00 05/24/17 20:59 04/27/17 09:28 Lorazepam (Ativan 2mg/ml 1ml) 0.5 mg Q4H PRN IV For Anxiety 04/25/17 22:45 05/01/17 06:44 Morphine Sulfate (Morphine Sulfate) 1 mg Q4H PRN IVP For Pain 7-10 04/25/17 22:45 05/01/17 18:44 04/27/17 14:15 Nicotine (Nicoderm) 1 patch DAILY TDERMAL 04/26/17 09:00 05/24/17 08:59 04/27/17 09:29 Nitroglycerin (Ntg) 0.4 mg Q5M X 3 DOSES PRN SL Prn Chest Pain 04/25/17 20:15 05/24/17 06:44 Ondansetron HCl (Zofran) 4 mg Q6H PRN IVP Nausea & Vomiting 04/26/17 00:45 05/24/17 06:44 Polyethylene Glycol (Miralax) 17 gm HSPRN PRN ORAL Constipation 04/26/17 18:45 05/24/17 18:44 04/26/17 22:10 Quetiapine Fumarate (SEROquel) 200 mg EVERY 8 HOURS ORAL 04/25/17 22:00 05/24/17 13:59 04/27/17 14:08 Temazepam (Restoril) 15 mg HSPRN PRN ORAL Insomnia 04/26/17 18:45 05/01/17 18:44 Tramadol HCl (Ultram) 50 mg Q6H PRN ORAL For Pain Level 4-6 04/26/17 00:45 05/01/17 06:44 Assessment/Plan Status: stable Assessment/Plan schizoaffective d/o priapism drug use cont current meds dc trazodone and Thorazine Monica Herbert M.D. Apr 27, 2017 17:27
[2017-04-27] MEDS ORDERED: BENZTROPINE MESY2 MG ORAL (19:20)
[2017-04-27] MEDS ORDERED: CLONIDINE0.1 MG PO (19:22)
[2017-04-27] MEDS ORDERED: LAMICTAL200 MG ORAL (19:23)
[2017-04-27] MEDS ORDERED: NITROGLYCERIN0.4 MG SL (19:26)
--- NOTE | 2017-04-28 20:59 | Discharge Summary ---
Discharge Summary Hospital Course Date of Admission Apr 23, 2017 at 22:29 Date of Discharge Apr 27, 2017 at 20:30 Admitting Diagnosis syncope, priapism HPI Rigo Howell is a 42 year old male who was admitted on Apr 23, 2017 at 22:29 for Syncope,Priapism Hospital Course dc summary#[id number] Discharge Medications Continued Medications: Acetaminophen* (Acetaminophen 325MG Tablet*) 325 Mg Tablet 650 MG ORAL Q4H PRN for Fever/Headache/Mild Pain, TAB Al Hydroxide/mg Hydroxide (Mag-Al Plus Suspension) 30 Ml Oral.susp 30 ML PO Q6HR PRN for prn, ML Albuterol Sulfate (Ventolin Hfa) 18 Gm Hfa.aer.ad 2 PUFFS INH EVERY 6 HOURS PRN for Shortness of Breath, #18 GM 0 Refills Aspirin* (Aspirin*) 81 Mg Tab.chew 81 MG ORAL DAILY, TAB Benztropine Mesylate* (Benztropine Mesylate*) 2 Mg Tablet 2 MG ORAL TWICE A DAY, TAB Carbamazepine (Tegretol*) 200 Mg Tablet 200 MG PO TID, #10 TAB 0 Refills Gabapentin* (Gabapentin*) 300 Mg Capsule 300 MG ORAL EVERY 8 HOURS, CAP Lamotrigine* (Lamictal*) 100 Mg Tablet 50 MG ORAL BID, #30 TAB 0 Refills Levetiracetam* (Levetiracetam*) 500 Mg Tablet 1500 MG ORAL TWICE A DAY, #60 TAB 0 Refills Lorazepam* (Ativan*) 1 Mg Tablet 1 MG ORAL Q6HR PRN for prn, TAB Nicotine 14MG Patch* (Nicoderm Cq 14MG*) 1 Each Patch.td24 1 EACH TD DAILY, EA Polyethylene Glycol 3350* (Polyethylene Glycol 3350*) 17 Gm Powd.pack 17 GM ORAL BEDTIME PRN for Constipation, PACKET Quetiapine Fumarate* (Seroquel*) 200 Mg Tablet 200 MG ORAL EVERY 8 HOURS, TAB Tramadol Hcl* (Ultram*) 50 Mg Tablet 50 MG ORAL Q6H PRN for For Pain, #30 TAB 0 Refills Zolpidem Tartrate* (Zolpidem Tartrate*) 5 Mg Tablet 5 MG ORAL BEDTIME PRN for Insomnia, TAB 0 Refills Discharge Condition Upon Discharge: stable Discharge Disposition Patient was discharged to [facility] ([facility]) Discharge Diagnoses: Discharge Instructions Discharge Instructions Special Instructions I have been assigned to complete a D/C Summary on this account. I was not involved in the patient management Ana Hernández NP ([facility]) Apr 28, 2017 20:59
--- NOTE | 2017-04-29 07:45 | Discharge Summary 2 SIG ---
DATE OF ADMISSION: 04/23/2017 DATE OF DISCHARGE: 04/27/2017 REASON FOR ADMISSION: 42-year-old male with history of seizure disorder, hypertension, chronic obstructive pulmonary disease, peripheral neuropathy, history of head trauma, and psychiatric disorder, presented [facility]. The patient recently had his medications changed due to the recurrent priapism, drug-induced. Upon arrival in the emergency department, blood pressure was stable. Heart rate was stable. EKG revealed sinus rhythm and no ST or T-wave abnormalities. The patient was admitted to telemetry floor for further management. HOSPITAL COURSE: The patient was admitted. Cardiology and Neurology consults were requested for workup of syncope. The patient was hydrated. Neurologist recommended MRI of the brain, which revealed no acute intracranial pathology. Neurologist recommended to adjust antipsychotic medications given development of ongoing extrapyramidal syndrome. The patient had a new onset since May of this year generalized choreoathetosis/general myoclonus, most likely representing a drug-induced extrapyramidal syndrome as per neurologist. Pain management was addressed with goal to reduce opiate dependency. Orthostatic blood pressure revealed no evidence of orthostatic changes. Psychiatrist had seen the patient and adjusted psychiatric medication regimen. Thorazine and trazodone were discontinued. Sewing Machine Operator [employer] followed the patient closely. Per paper guillotine operator, the patient initially was on telemetry floor and demonstrated sinus rhythm on telemetry. No cardiac events. No evidence of arrhythmias. A 2D echo revealed preserved ejection fraction. IV hydration provided. DVT and GI prophylaxes provided. Supplemental oxygen was on board along with pulmonary toilet, however, pulse oximetry was stable on room air. No evidence of chronic obstructive pulmonary disease exacerbation. Blood pressure was managed with the current medication regimen and remained stable. Seizure precautions were maintained. No evidence of seizure activity while in the hospital .Antiepileptic medications were continued. Nicotine patch was provided. Urologist had seen and evaluated the patient due to the history of recurrent priapism, drug-induced. The patient was recently hospitalized for priapism. At that time , urologist attempted to reduce erection to go down and was unable to completely reduce it. Physical exam revealed a softening but still somewhat firm erection, which significantly decreased from the prior presentation. Per Urology, who discussed the findings with the patient, given the symptoms had been well over a week since the episode of priapism, clot and fibrosis need to dissolve. This process was already happening as physical exam demonstrates significant improvement . and there was no role for surgical intervention at this time. The patient was stable for discharge back to facility. FINAL DIAGNOSES: 1. Syncope, possibly drug-induced. 2. 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 3. Status post severe traumatic brain injury. 4. 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 5. Schizoaffective disorder. 6. Chronic pain, opiate dependent. 7. Hypertension. 8. Chronic obstructive pulmonary disease. 9. Recurrent priapism, drug-induced. DISCHARGE MEDICATIONS: See medication reconciliation list. DISCHARGE INSTRUCTIONS: The [facility]. FOLLOWUP: Follow up with medical doctor at the facility. Curtis Gavin D.O. I have been assigned to dictate discharge summary on this account and I was not involved in the patient's management. Ana Hernández ([facility] DR: ANDREAS JOB#: [id number] CC: OTONIEL
--- NOTE | 2017-04-29 08:30 | Consultation ---
DATE OF CONSULTATION: 04/27/2017 PSYCHOTHERAPY CONSULTATION PROGRESS NOTE CONSULTING PHYSICIAN: Abdi Medley PsyD. ATTENDING PHYSICIAN: Curtis Gavin D.O. HISTORY OF PRESENT ILLNESS: The patient is a 42-year-old male patient from [facility]. The patient has a history of bipolar 2 disorder. The patient was admitted to the hospital due to syncope and priapism. The patient does have a history of priapism, recently seen at [facility] emergency room and discharged home. The patient has been anxious and agitated, labile mood and affect, and for these reasons, he was referred for psychotherapeutic service. This clinician assessed the patient. The patient states that his anxiety is reportedly due to not being home and , however, denies suicidal or homicidal thoughts of ideation. Denies auditory or visual hallucinations. The patient states that he has been cooperative with the nursing staff and participate in his treatment. The patient's anxiety is moderate today. PAST MEDICAL HISTORY: Includes history of hypertension, syncope, and priapism. ALLERGIES: The patient is allergic to Depakote and chlorpromazine. SUBSTANCE ABUSE HISTORY: The patient has a history of smoking cigarettes and alcohol use. Denies illicit substance use. SOCIAL HISTORY: The patient is a 42-year-old male patient from [facility]. The patient is single male. MENTAL STATUS EXAMINATION: The patient is alert and oriented x3 to person, place, and time. His mood is anxious. Affect is blunted. Thought process disorganized. Thought content linear. The patient has poor attention and concentration. DIAGNOSIS: Bipolar 2, moderate, without psychotic features, recurrent. PLAN: This clinician assessed this patient. Assessed the patient's mental status. Provided the patient with supportive psychotherapy. Addressing the patient's anxiety and providing him with coping skills. Encouraging him to participate in treatment milieu. Continue with behavioral management. The patient has . Abdi Medley PsyD. DR: Federico JOB#: [id number] CC:
== END 2017-04-27 20:30 | DRG 729 ==
LOC: EDBD 20:22 → EMR 22:24 → 2W 22:29 → EDBEDREQ 23:23 → 2E 04-24 19:06 → 3E 04-25 20:10
DX: N48.33 Priapism, drug-induced (principal); F11.20 Opioid dependence, uncomplicated; I10 Essential (primary) hypertension; G25.3 Myoclonus; J44.9 Chronic obstructive pulmonary disease, unspecified; N48.81 Thrombosis of superficial vein of penis; R55 Syncope and collapse; G40.909 Epilepsy, unspecified, not intractable, without status epilepticus; G89.29 Other chronic pain; Z88.8 Allergy status to other drugs, medicaments and biological substances; T50.905A Adverse effect of unspecified drugs, medicaments and biological substances, initial encounter; Z87.820 Personal history of traumatic brain injury; F25.9 Schizoaffective disorder, unspecified; Z87.891 Personal history of nicotine dependence; F10.21 Alcohol dependence, in remission; F31.9 Bipolar disorder, unspecified; Z66 Do not resuscitate
CPT/HCPCS: 36415; 70551; 80048; 80053; 80061; 80156; 80299; 83735; 83880; 84100; 84443; 84484; 85025; 85610; 85730; 87081; 93005; 93306; 94640; 94664; 94760; 99285; J7620

== ENCOUNTER 2017-06-20 04:35 | Inpatient (IN) | payer MEDICARE, OTHER ==
[~2017-06-20] VITALS: Ht 170.2 cm; Wt 73.5 kg
[~2017-06-20 04:35] MED LIST changes: +ATIVAN0.5 MG ORAL; +BENZTROPINE MESY2 MG ORAL; +CLONIDINE0.1 MG PO; +LAMICTAL200 MG ORAL; +MORPHINE 22 MG/1 ML IV; +NITROGLYCERIN0.4 MG SL
[2017-06-20] MEDS ORDERED: UNOBMED (05:15)
[2017-06-20] MEDS ORDERED: Haloperidol 5mg/ml Inj ONE (05:57)
[2017-06-20] MEDS ORDERED: Haloperidol 5mg/ml Inj IM ONE (06:00)
[2017-06-20] MEDS ORDERED: DiphenhydrAMINE 50mg/ml Inj ONE (06:07)
--- NOTE | 2017-06-20 06:08 | Emergency Room Report ---
History of Present Illness General Chief Complaint: Pain Source: Patient Present Illness HPI Is a 42-year-old male who is wheelchair-bound. He comes in a [facility]. He has a psychiatric history also. He was agitated and anxious and said he was suicidal. snf arranged for transfer to [place] [facility] for evaluation. He was supposed to be picked up at 6 AM. Patient was too impatient to wait until 6 AM. He said he is leaving. Because he left the [facility], they consider him to sign out AGAINST MEDICAL ADVICE. He took a taxi here. He claimed that as a load him to a taxi he fell and hit his right hand. Complaining of right hand pain. Allergies: Coded Allergies: CHLORPROMAZINE (Verified Allergy, Unknown, 04/20/17) DIVALPROEX SODIUM (Verified Allergy, Unknown, 04/17/17) Patient History Past Medical History: see triage record, old chart reviewed, COPD Past Surgical History: other Pertinent Family History: none Social History: Denies: smoking Immunizations: other Reviewed Nursing Documentation: PMH: Agreed, PSxH: Agreed Nursing Documentation-PMH Hx Cardiac Problems: No Hx Hypertension: Yes - HTN, COPD, Hx Asthma: Yes Hx COPD: Yes Hx Cancer: No Hx Gastrointestinal Problems: No Hx Neurological Problems: Yes - Parkinsons Hx Seizures: Yes Hx Epilepsy: Yes Hx Peripheral Neuropathy: Yes Hx Head Trauma: Yes Hx Dizziness: Yes Hx Syncope: Yes Hx Headaches: Yes Hx Weakness: Yes Review of Systems Eye: Denies: eye pain, blurred vision ENT: Denies: ear pain, nose congestion, throat swelling Respiratory: Denies: cough, shortness of breath Cardiovascular: Denies: chest pain, palpitations Gastrointestinal: Denies: abdominal pain, diarrhea, nausea, vomiting Musculoskeletal: Reports: muscle pain, Denies: back pain, joint pain Skin: Denies: rash Neurological: Denies: headache, numbness Endocrine: Denies: increased thirst, increased urine Hematologic/Lymphatic: Denies: easy bruising All Other Systems: negative except mentioned in HPI Physical Exam Vital Signs Date Time Temp Pulse Resp B/P (MAP) Pulse Ox O2 Delivery O2 Flow Rate FiO2 06/20/17 05:11 94 12 110/80 97 Room Air vitals normal Sp02 EP Interpretation: reviewed, normal General Appearance: well appearing, no apparent distress, alert Head: normocephalic, atraumatic Eyes: bilateral eye PERRL, bilateral eye EOMI ENT: hearing grossly normal, normal pharynx Neck: full range of motion, supple, no meningismus Respiratory: chest non-tender, lungs clear, normal breath sounds Cardiovascular #1: regular rate, rhythm, no murmur Gastrointestinal: normal bowel sounds, non tender, no mass, no organomegaly, no bruit, non-distended Musculoskeletal: back normal, normal range of motion, tender - Tenderness to the dorsum of right hand. No deformity. Neurologic: alert Psychiatric: mood/affect normal Skin: warm/dry Medical Decision Making Diagnostic Impression: Primary Impression: Chronic pain Qualified Codes: G89.4 - Chronic pain syndrome Additional Impression: Agitation ER Course Patient presents with chief complaint of right hand pain. There is no trauma. I call [facility] to confirm that he is no longer welcome back. He is said to sign out AGAINST MEDICAL ADVICE because he left. He has no other place to go. He is now homeless. Because he is wheelchair-bound on oxygen, it is dangerous for him to be homeless. I asked him what he would do such a thing. At this point he became very agitated was yelling and spitting. He had to be given medicine to calm him down. We'll get did blood work and admit. Last Vital Signs Date Time Temp Pulse Resp B/P (MAP) Pulse Ox O2 Delivery O2 Flow Rate FiO2 06/20/17 05:11 94 12 110/80 97 Room Air Status: improved Disposition: ADMITTED INPATIENT Referrals: JUAN FROST (PCP) MYRIAM SWAIN M.D. Jun 20, 2017 06:08
[2017-06-20] MEDS ORDERED: DiphenhydrAMINE 50mg/ml Inj IM ONE (06:15)
[2017-06-20] MEDS ORDERED: Bacitracin Oint UD TOPIC ONE (06:20)
[2017-06-20] MEDS ORDERED: Mylanta II UD 30ml ORAL PRN (08:15)
[2017-06-20] MEDS ORDERED: Morphine Sulfate 4mg/ml Inj IVP PRN (08:15)
[2017-06-20] MEDS ORDERED: Zolpidem 5mg tab ORAL PRN (08:15)
[2017-06-20] MEDS ORDERED: Miralax 17gm pkt ORAL PRN (08:15)
[2017-06-20 08:23] VITALS: BP 112/57
[2017-06-20 09:00] LABS: BASOPHILS % (AUTO) 0.7 % (0.0-2.0); EOSINOPHILS % (AUTO) 2.4 % (0.0-3.0); HEMATOCRIT 44.4 % (42.0-52.0); HEMOGLOBIN 15.9 G/DL (14.2-18.0); LYMPHOCYTES % (AUTO) 12.7 % (20.0-45.0); MEAN CORPUSCULAR VOLUME 95 FL (80-99); MONOCYTES % (AUTO) 8.2 % (1.0-10.0); PLATELET COUNT 212 K/UL (150-450); RED BLOOD COUNT 4.66 M/UL (4.70-6.10); RED CELL DISTRIBUTION WIDTH 10.8 % (11.6-14.8); WHITE BLOOD COUNT 9.3 K/UL (4.8-10.8)
[2017-06-20 09:10] LABS: APPEARANCE,URINE CLEAR; BILIRUBIN, URINE NEGATIVE (NEGATIVE); COLOR,URINE PALE YELLOW; GLUCOSE, URINE (UA) NEGATIVE (NEGATIVE); KETONES,URINE NEGATIVE (NEGATIVE); LEUKOCYTE ESTERASE ,URINE 1+ (NEGATIVE); NITRITE,URINE NEGATIVE (NEGATIVE); PH,URINE 6 (4.5-8.0); PROTEIN,URINE NEGATIVE (NEGATIVE); UROBILINOGEN,URINE NORMAL MG/DL (0.0-1.0)
[2017-06-20 09:16] LABS: ANION GAP 7 mmol/L (5-15); BLOOD UREA NITROGEN 15 mg/dL (7-18); CALCIUM 9.1 MG/DL (8.5-10.1); CARBON DIOXIDE 26 MMOL/L (21-32); CHLORIDE 106 MMOL/L (98-107); CREATININE 0.9 MG/DL (0.55-1.30); POTASSIUM 3.7 MMOL/L (3.5-5.1); SODIUM 139 MMOL/L (136-145)
[2017-06-20 10:05] VITALS: BP 117/60
--- NOTE | 2017-06-20 10:54 | Diagnostic Imaging Report ---
Indication: Reason For Exam: TRAUMA Technique: 3 views right hand Comparison: none Findings: No acute fractures. No dislocations. Joint spaces are preserved. There is ulnar minus variance Impression: No acute process
[2017-06-20] MEDS ORDERED: Benztropine 1mg tab ORAL SCH (11:00)
[2017-06-20 12:00] VITALS: BP 118/68
[2017-06-20] MEDS ORDERED: BENADRYL25 M3 PO (12:18)
[2017-06-20] MEDS ORDERED: LACTULOSE20 GM/301 ORAL (12:18)
[2017-06-20] MEDS ORDERED: PATANOL1 DROP OD (12:18)
[2017-06-20] MEDS ORDERED: RESTORIL15 MG ORAL (12:28)
[2017-06-20] MEDS ORDERED: NORCO 5-325 TA1 EACH ORAL (12:28)
[2017-06-20] MEDS ORDERED: TRAZODONE HCL150 MG ORAL (12:28)
[2017-06-20] MEDS: Heparin 5000 units/ml inj SUBQ SCH ×2 (12:38→20:10)
[2017-06-20] MEDS ORDERED: carBAMazepine 200mg tab ORAL SCH (13:00)
--- NOTE | 2017-06-20 13:42 | Neurology Progress Note ---
Objective Physical Exam Last Vital Signs Date Time Temp Pulse Resp B/P (MAP) Pulse Ox O2 Delivery O2 Flow Rate FiO2 06/20/17 12:00 98.0 77 18 118/68 97 06/20/17 10:05 Room Air Laboratory Tests Test 06/20/17 08:40 White Blood Count 9.3 K/UL (4.8-10.8) Red Blood Count 4.66 M/UL (4.70-6.10) L Hemoglobin 15.9 G/DL (14.2-18.0) Hematocrit 44.4 % (42.0-52.0) Mean Corpuscular Volume 95 FL (80-99) Mean Corpuscular Hemoglobin 34.1 PG (27.0-31.0) H Mean Corpuscular Hemoglobin Concent 35.7 G/DL (32.0-36.0) Red Cell Distribution Width 10.8 % (11.6-14.8) L Platelet Count 212 K/UL (150-450) Mean Platelet Volume 8.5 FL (6.5-10.1) Neutrophils (%) (Auto) 76.0 % (45.0-75.0) H Lymphocytes (%) (Auto) 12.7 % (20.0-45.0) L Monocytes (%) (Auto) 8.2 % (1.0-10.0) Eosinophils (%) (Auto) 2.4 % (0.0-3.0) Basophils (%) (Auto) 0.7 % (0.0-2.0) Urine Color Pale yellow Urine Appearance Clear Urine pH 6 (4.5-8.0) Urine Specific [place] 1.010 (1.005-1.035) Urine Protein Negative (NEGATIVE) Urine Glucose (UA) Negative (NEGATIVE) Urine Ketones Negative (NEGATIVE) Urine Occult Blood Negative (NEGATIVE) Urine Nitrite Negative (NEGATIVE) Urine Bilirubin Negative (NEGATIVE) Urine Urobilinogen Normal MG/DL (0.0-1.0) Urine Leukocyte Esterase 1+ (NEGATIVE) H Urine RBC 0 /HPF (0 - 0) Urine WBC 2-4 /HPF (0 - 0) Urine Squamous Epithelial Cells Occasional /LPF Urine Bacteria Occasional /HPF (NONE) Sodium Level 139 MMOL/L (136-145) Potassium Level 3.7 MMOL/L (3.5-5.1) Chloride Level 106 MMOL/L (98-107) Carbon Dioxide Level 26 MMOL/L (21-32) Anion Gap 7 mmol/L (5-15) Blood Urea Nitrogen 15 mg/dL (7-18) Creatinine 0.9 MG/DL (0.55-1.30) Estimat Glomerular Filtration Rate > 60 mL/min (>60) Glucose Level 99 MG/DL (74-106) Calcium Level 9.1 MG/DL (8.5-10.1) Urine Opiates Screen Negative (NEGATIVE) Urine Barbiturates Screen Negative (NEGATIVE) Phencyclidine (PCP) Screen Negative (NEGATIVE) Urine Amphetamines Screen Negative (NEGATIVE) Urine Benzodiazepines Screen Negative (NEGATIVE) Urine Cocaine Screen Negative (NEGATIVE) Urine Marijuana (THC) Screen Negative (NEGATIVE) Serum Alcohol < 3 mg/dL Impression/Recommendations Problems: (1) chronic seizure disorder r/o pseudoseizures. (2) chronic pain syndrom with drug seeking behavior (3) HTN (hypertension) (4) COPD (chronic obstructive pulmonary disease) (5) extrapyramidal syndrom, drug induced Status: unchanged Recommendations ##[id number] ABBEY GAN Jun 20, 2017 13:42
[2017-06-20] MEDS: LORazepam Inj 2mg/ml 1ml IV PRN (13:46)
--- NOTE | 2017-06-20 13:52 | Consultation ---
History of Present Illness General Date patient seen: Jun 20, 2017 Time patient seen: 13:00 Chief Complaint: Pain Referring physician: dr Gavin Reason for Consultation: inpatient management Present Illness HPI 42 y/old male with PMH of HTN, COPD/asthma, seizure disorder, peripheral neuropathy,depression , psychiatric history , wheelchair-bound, came from the longterm faciltiy. Upon presentation appeared agitated and anxious He stated at that time that he was suicidal. Prior to arrival to ED, nursing faciltiy arranged for transfer him to [facility] ER for evaluation. Patient was supposed to be picked up at 6 AM, but he was too impatient to wait until 6 AM. He left the facility and took a taxi. SNF is considered him signing against medical advise Patient claimed that he fell while getting to the taxi and hit his right hand, reported pain in the right hand. Upon evaluation, the patient was found to have stable VS Laboratory work up was unremarkable X ray R hand revealed no evidence of acute fracture at that time he denied any SI or plan for suicide. Patient was admitted for placement, agitation and management of psychiatric issues Allergies: Coded Allergies: CHLORPROMAZINE (Verified Allergy, Unknown, 04/20/17) DIVALPROEX SODIUM (Verified Allergy, Unknown, 04/17/17) FISH CONTAINING PRODUCTS (Verified Allergy, Unknown, 06/20/17) Medication History Scheduled Aspirin* (Aspirin*), 81 MG ORAL DAILY, (Reported) Benztropine Mesylate* (Benztropine Mesylate*), 2 MG PO BID, (Reported) Benztropine Mesylate* (Benztropine Mesylate*), 2 MG ORAL TWICE A DAY, (Reported) Carbamazepine (Tegretol*), 200 MG PO TID, (Reported) Docusate Sodium* (Colace*), 100 MG ORAL DAILY, (Reported) Gabapentin* (Gabapentin*), 300 MG ORAL EVERY 8 HOURS, (Reported) Lactulose (Lactulose*), 15 ML ORAL DAILY, (Reported) Lamotrigine (Lamictal), 50 MG ORAL TWICE A DAY, (Reported) Levetiracetam (Keppra), 1,500 MG ORAL EVERY 12 HOURS, (Reported) Multivitamin (Multi Vitamin Daily), 1 TAB ORAL DAILY, (Reported) Nicotine 14MG Patch* (Nicoderm Cq 14MG*), 1 EACH TD DAILY, (Reported) Nitroglycerin (Nitroglycerin), 0.4 MG SL PRN, (Reported) Olopatadine (Patanol), 1 DROP OD DAILY, (Reported) Quetiapine Fumarate* (Seroquel*), 200 MG ORAL EVERY 8 HOURS, (Reported) Trazodone* (Trazodone*), 50 MG ORAL BEDTIME, (Reported) Scheduled PRN Acetaminophen* (Acetaminophen 325MG Tablet*), 650 MG ORAL Q4H PRN for Fever/ Headache/Mild Pain, (Reported) Al Hydroxide/mg Hydroxide (Mag-Al Plus Suspension), 30 ML PO Q6HR PRN for prn, ( Reported) Albuterol Sulfate (Ventolin Hfa), 2 PUFFS INH EVERY 6 HOURS PRN for Shortness of Breath, (Reported) Diphenhydramine HCl (Benadryl), 50 MG PO QHS PRN for Itching, (Reported) Hydrocodone Bit/Acetaminophen 5-325* (Riva 5-325*), 1 TAB ORAL Q6H PRN for For Pain, (Reported) Lorazepam* (Ativan*), 0.5 MG ORAL Q6HR PRN for For Anxiety, (Reported) Polyethylene Glycol 3350* (Polyethylene Glycol 3350*), 17 GM ORAL BEDTIME PRN for Constipation, (Reported) Temazepam* (Restoril*), 15 MG ORAL BEDTIME PRN for Insomnia, (Reported) Miscellaneous Medications Folic Acid/Vitamin B Comp W-C (Lia-Ramona Tablet), 1 MG PO, (Reported) Unable to Obtain Medications (Unable To Obtain Meds), (Reported) Discontinued Medications Chlorpromazine Hcl (Chlorpromazine Hcl), 20 MG PO TID, (Reported) Discontinued Reason: MD discontinued med Clonidine HCl (Clonidine HCl), 0.1 MG PO, (Reported) Discontinued Reason: MD discontinued med Fish Oil (Fish Oil 1,000 mg Capsule), 1,000 MG ORAL DAILY Discontinued Reason: Pt had allergic rxn Folic Acid* (Folic Acid*), 1 MG ORAL DAILY, (Reported) Discontinued Reason: MD discontinued med Hydroxyzine Hcl (Hydroxyzine Hcl), 10 MG PO EVERY 8 HOURS PRN for Itching, ( Reported) Discontinued Reason: MD discontinued med Lamotrigine* (Lamictal*), 50 MG ORAL BID, (Reported) Discontinued Reason: Medication dose changed Levetiracetam* (Levetiracetam*), 1,500 MG ORAL TWICE A DAY, (Reported) Discontinued Reason: Medication dose changed Lorazepam* (Ativan*), 1 MG ORAL Q6HR PRN for prn, (Reported) Discontinued Reason: MD discontinued med Meclizine Hcl* (Meclizine*), 25 MG ORAL, (Reported) Discontinued Reason: Therapy completed Morphine 10mg/5ml Oral Soln* (Morphine 10mg/5ml Oral Soln*), 15 MG ORAL EVERY 12 HOURS PRN for For Pain, (Reported) Discontinued Reason: Therapy completed Morphine HCl (Morphine Sulfate ER), 15 MG ORAL DAILY, (Reported) Discontinued Reason: Therapy completed Morphine Sulfate* (Morphine Sulfate*), 1 MG IV Q4HR PRN for Pain Scale (6-10), ( Reported) Discontinued Reason: Therapy completed Ondansetron* (Zofran*), 4 MG ORAL Q6H PRN for Nausea & Vomiting, (Reported) Discontinued Reason: Therapy completed Tramadol Hcl* (Ultram*), 50 MG ORAL Q6H PRN for For Pain, (Reported) Discontinued Reason: Therapy completed Ziprasidone Hcl* (Geodon*), 80 MG ORAL TWICE A DAY, (Reported) Discontinued Reason: Therapy completed Zolpidem Tartrate* (Zolpidem Tartrate*), 5 MG ORAL BEDTIME PRN for Insomnia, ( Reported) Discontinued Reason: MD discontinued med Patient History History Provided By: Patient Healthcare decision maker Resuscitation status Full Code Advanced Directive on File No Past Medical/Surgical History Past Medical/Surgical History: (1) Psychiatric disorder (2) Priapism (3) Seizure disorder (4) 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 (5) ETOH abuse (6) Chronic pain (7) COPD (chronic obstructive pulmonary disease) (8) HTN (hypertension) Review of Systems Constitutional: Reports: no symptoms Eye: Reports: no symptoms ENT: Reports: no symptoms Respiratory: Reports: no symptoms Cardiovascular: Reports: no symptoms Gastrointestinal: Reports: no symptoms Genitourinary: Reports: other - hx of priapism Musculoskeletal: Reports: see HPI, other - R hand pain Skin: Reports: no symptoms Psychiatric: Reports: see HPI Neurological: Reports: see HPI, seizure, other - Parkinson disease, Endocrine: Reports: no symptoms Hematologic/Lymphatic: Reports: no symptoms Physical Exam General Appearance: no apparent distress, alert Lines, tubes and drains: peripheral HEENT: normocephalic, atraumatic, anicteric, mucous membranes moist Neck: supple Respiratory/Chest: lungs clear - with moderate air exchange , no respiratory distress, no accessory muscle use Cardiovascular/Chest: normal rate, no JVD Abdomen: normal bowel sounds, non tender, soft Extremities: normal range of motion, no calf tenderness, normal capillary refill, other - TTP dorsum R hand Skin Exam: warm/dry Neurologic: abnormal gait - w/chair bound , alert, responsive Last 24 Hour Vital Signs Date Time Temp Pulse Resp B/P (MAP) Pulse Ox O2 Delivery O2 Flow Rate FiO2 06/20/17 12:00 98.0 77 18 118/68 97 06/20/17 10:05 97.6 86 20 117/60 96 Room Air 06/20/17 10:05 98.0 78 20 117/60 94 Room Air 06/20/17 08:23 97.6 78 17 112/57 94 Room Air 06/20/17 05:11 94 12 110/80 97 Room Air Intake and Output 06/19/17 06/20/17 19:00 07:00 Intake Total 0 ml Balance 0 ml Intake Oral 0 ml Laboratory Tests Test 06/20/17 08:40 White Blood Count 9.3 K/UL (4.8-10.8) Red Blood Count 4.66 M/UL (4.70-6.10) L Hemoglobin 15.9 G/DL (14.2-18.0) Hematocrit 44.4 % (42.0-52.0) Mean Corpuscular Volume 95 FL (80-99) Mean Corpuscular Hemoglobin 34.1 PG (27.0-31.0) H Mean Corpuscular Hemoglobin Concent 35.7 G/DL (32.0-36.0) Red Cell Distribution Width 10.8 % (11.6-14.8) L Platelet Count 212 K/UL (150-450) Mean Platelet Volume 8.5 FL (6.5-10.1) Neutrophils (%) (Auto) 76.0 % (45.0-75.0) H Lymphocytes (%) (Auto) 12.7 % (20.0-45.0) L Monocytes (%) (Auto) 8.2 % (1.0-10.0) Eosinophils (%) (Auto) 2.4 % (0.0-3.0) Basophils (%) (Auto) 0.7 % (0.0-2.0) Urine Color Pale yellow Urine Appearance Clear Urine pH 6 (4.5-8.0) Urine Specific Pimento 1.010 (1.005-1.035) Urine Protein Negative (NEGATIVE) Urine Glucose (UA) Negative (NEGATIVE) Urine Ketones Negative (NEGATIVE) Urine Occult Blood Negative (NEGATIVE) Urine Nitrite Negative (NEGATIVE) Urine Bilirubin Negative (NEGATIVE) Urine Urobilinogen Normal MG/DL (0.0-1.0) Urine Leukocyte Esterase 1+ (NEGATIVE) H Urine RBC 0 /HPF (0 - 0) Urine WBC 2-4 /HPF (0 - 0) Urine Squamous Epithelial Cells Occasional /LPF Urine Bacteria Occasional /HPF (NONE) Sodium Level 139 MMOL/L (136-145) Potassium Level 3.7 MMOL/L (3.5-5.1) Chloride Level 106 MMOL/L (98-107) Carbon Dioxide Level 26 MMOL/L (21-32) Anion Gap 7 mmol/L (5-15) Blood Urea Nitrogen 15 mg/dL (7-18) Creatinine 0.9 MG/DL (0.55-1.30) Estimat Glomerular Filtration Rate > 60 mL/min (>60) Glucose Level 99 MG/DL (74-106) Calcium Level 9.1 MG/DL (8.5-10.1) Urine Opiates Screen Negative (NEGATIVE) Urine Barbiturates Screen Negative (NEGATIVE) Phencyclidine (PCP) Screen Negative (NEGATIVE) Urine Amphetamines Screen Negative (NEGATIVE) Urine Benzodiazepines Screen Negative (NEGATIVE) Urine Cocaine Screen Negative (NEGATIVE) Urine Marijuana (THC) Screen Negative (NEGATIVE) Serum Alcohol < 3 mg/dL Height (Feet): 5 Height (Inches): 7.00 Weight (Pounds): 162 Medications Current Medications Medications (Trade) Dose Ordered Sig/Sharon Route PRN Reason Start Time Stop Time Status Last Admin Dose Admin Acetaminophen (Tylenol) 650 mg Q4H PRN ORAL fever 06/20/17 10:00 07/20/17 09:59 Al Hydroxide/Mg Hydroxide (Mylanta II) 30 ml Q6H PRN ORAL dyspepsia 06/20/17 08:15 07/20/17 08:14 Benztropine Mesylate (Cogentin) 2 mg BID ORAL 06/20/17 18:00 07/20/17 17:59 Carbamazepine (TEGretol) 200 mg Q12HR ORAL 06/20/17 21:00 07/20/17 20:59 Dextrose (Dextrose 50%) STAT PRN IV Hypoglycemia 06/20/17 08:15 07/20/17 08:14 Gabapentin (Neurontin) 300 mg EVERY 8 HOURS ORAL 06/20/17 14:00 07/20/17 13:59 06/20/17 13:46 Heparin Sodium (Porcine) (Heparin 5000 units/ml) 5,000 units EVERY 12 HOURS SUBQ 06/20/17 11:00 07/20/17 10:59 06/20/17 12:38 Lamotrigine (LaMICtal) 100 mg Q12HR ORAL 06/20/17 21:00 07/20/17 20:59 Levetiracetam (Keppra) 1,000 mg EVERY 12 HOURS ORAL 06/20/17 21:00 07/20/17 20:59 Lorazepam (Ativan 2mg/ml 1ml) 0.5 mg Q4H PRN IV For Anxiety 06/20/17 08:15 06/27/17 08:14 06/20/17 13:46 Morphine Sulfate (Morphine Sulfate) 2 mg Q4H PRN IVP For Pain 4-6 06/20/17 08:15 06/27/17 08:14 Morphine Sulfate (Morphine Sulfate) 4 mg Q4H PRN IVP For Pain 7-10 06/20/17 08:15 06/27/17 08:14 Nicotine (Nicoderm) 1 patch Q24H TDERMAL 06/20/17 14:00 07/20/17 13:59 Ondansetron HCl (Zofran) 4 mg Q6H PRN IVP Nausea & Vomiting 06/20/17 08:15 07/20/17 08:14 Polyethylene Glycol (Miralax) 17 gm HSPRN PRN ORAL Constipation 06/20/17 08:15 07/20/17 08:14 Quetiapine Fumarate (SEROquel) 200 mg EVERY 8 HOURS ORAL 06/20/17 14:00 07/20/17 13:59 UNV Zolpidem Tartrate (Ambien) 5 mg HSPRN PRN ORAL Insomnia 06/20/17 08:15 06/27/17 08:14 Assessment/Plan Assessment/Plan ASSESSMENT psychiatric disorder exacerbation with agitation chronic seizure disorder r/o pseudoseizures. chronic pain syndrome with drug seeking behavior HTN COPD extrapyramidal syndrome, drug induced SI s/p mechanical fall R hand pain w/chair bound nicotine dependency with withdrawal PLAN OF CARE MS floor currently denying any SI or plans to commit suicide psych meds resume psych eval as per PMD, review all psych meds and optimized psych regimen seizure precautions continue current antiepileptic regimen neuro consult appreciated PT/OT pain management fll precautions O2 HHN prn group therapy counselor on smoking cessation Nicotine patch DVT prophylaxis case discussed and evaluated by supervising physician Edgar (Alvinosandy)Ana NP Jun 20, 2017 13:52
[2017-06-20 16:00] VITALS: BP 122/71
[2017-06-20] MEDS ORDERED: QUEtiapine 200mg tab ORAL SCH (18:00)
[2017-06-20] MEDS: Benztropine 1mg tab ORAL SCH (18:16)
[2017-06-20 20:00] VITALS: BP 107/68
[2017-06-20] MEDS: Ziprasidone 20mg cap ORAL SCH (20:08)
[2017-06-20] MEDS: carBAMazepine 200mg tab ORAL SCH (20:08)
[2017-06-20] MEDS: Morphine Sulfate 4mg/ml Inj IVP PRN (20:09)
[2017-06-21] VITALS (7 sets, daily range): BP systolic 98–121; BP diastolic 57–68
--- NOTE | 2017-06-21 05:31 | General Progress Note ---
Assessment/Plan Problem List: (1) UTI (urinary tract infection) ICD Codes: N39.0 - Urinary tract infection, site not specified SNOMED: 57834721 (2) Epilepsia ICD Codes: G40.909 - Epilepsy, unspecified, not intractable, without status epilepticus SNOMED: 33776910 (3) Agitation ICD Codes: R45.1 - Restlessness and agitation SNOMED: 938616011 (4) COPD (chronic obstructive pulmonary disease) ICD Codes: J44.9 - Chronic obstructive pulmonary disease, unspecified SNOMED: 40355188 (5) HTN (hypertension) ICD Codes: I10 - Essential (primary) hypertension SNOMED: 82842297 (6) chronic pain syndrom with drug seeking behavior (7) Psychiatric disorder ICD Codes: F99 - Mental disorder, not otherwise specified SNOMED: 84998400, 936835080 Status: unchanged Assessment/Plan ot pt diet abx psyc tx pain control id eval cbc bmp am Subjective Allergies: Coded Allergies: CHLORPROMAZINE (Verified Allergy, Unknown, 04/20/17) DIVALPROEX SODIUM (Verified Allergy, Unknown, 04/17/17) FISH CONTAINING PRODUCTS (Verified Allergy, Unknown, 06/20/17) All Systems: reviewed and negative except above Subjective sleepy in bed Objective Last 24 Hour Vital Signs Date Time Temp Pulse Resp B/P (MAP) Pulse Ox O2 Delivery O2 Flow Rate FiO2 06/21/17 00:00 97.7 78 21 101/57 97 06/20/17 20:39 98.0 06/20/17 20:00 97.9 73 21 107/68 96 06/20/17 16:00 98.0 86 20 122/71 95 06/20/17 12:00 98.0 77 18 118/68 97 06/20/17 10:05 97.6 86 20 117/60 96 Room Air 06/20/17 10:05 98.0 78 20 117/60 94 Room Air 06/20/17 08:23 97.6 78 17 112/57 94 Room Air Intake and Output 06/20/17 06/21/17 19:00 07:00 Intake Total 480 ml Output Total 350 ml Balance 130 ml Intake Oral 480 ml Output Urine Total 350 ml Laboratory Tests 06/20/17 08:40: White Blood Count 9.3, Red Blood Count 4.66L, Hemoglobin 15.9, Hematocrit 44.4, Mean Corpuscular Volume 95, Mean Corpuscular Hemoglobin 34.1H, Mean Corpuscular Hemoglobin Concent 35.7, Red Cell Distribution Width 10.8L, Platelet Count 212, Mean Platelet Volume 8.5, Neutrophils (%) (Auto) 76.0H, Lymphocytes (%) (Auto) 12.7L, Monocytes (%) (Auto) 8.2, Eosinophils (%) (Auto) 2.4, Basophils (%) (Auto ) 0.7, Urine Color Pale yellow, Urine Appearance Clear, Urine pH 6, Urine Specific Ronald 1.010, Urine Protein Negative, Urine Glucose (UA) Negative, Urine Ketones Negative, Urine Occult Blood Negative, Urine Nitrite Negative, Urine Bilirubin Negative, Urine Urobilinogen Normal, Urine Leukocyte Esterase 1+ H, Urine RBC 0, Urine WBC 2-4, Urine Squamous Epithelial Cells Occasional, Urine Bacteria Occasional, Sodium Level 139, Potassium Level 3.7, Chloride Level 106, Carbon Dioxide Level 26, Anion Gap 7, Blood Urea Nitrogen 15, Creatinine 0.9, Estimat Glomerular Filtration Rate > 60, Glucose Level 99, Calcium Level 9.1, Urine Opiates Screen Negative, Urine Barbiturates Screen Negative, Phencyclidine (PCP) Screen Negative, Urine Amphetamines Screen Negative, Urine Benzodiazepines Screen Negative, Urine Cocaine Screen Negative, Urine Marijuana (THC) Screen Negative, Serum Alcohol < 3 Height (Feet): 5 Height (Inches): 7.00 Weight (Pounds): 162 General Appearance: lethargic EENT: normal ENT inspection Neck: normal alignment Cardiovascular: normal peripheral pulses, normal rate, regular rhythm Respiratory/Chest: chest wall non-tender, lungs clear, normal breath sounds Abdomen: normal bowel sounds, non tender, soft Extremities: normal inspection Edema: no edema noted Arm (L), no edema noted Arm (R), no edema noted Leg (L), no edema noted Leg (R), no edema noted Pedal (L), no edema noted Pedal (R), no edema noted Generalized Neurologic: motor weakness Skin: normal pigmentation, warm/dry JUAN FROST Jun 21, 2017 05:31
[2017-06-21] MEDS: Morphine Sulfate 4mg/ml Inj IVP PRN ×2 (06:08→21:01)
[2017-06-21 08:26] LABS: BASOPHILS % (AUTO) 0.9 % (0.0-2.0); EOSINOPHILS % (AUTO) 2.6 % (0.0-3.0); HEMATOCRIT 43.1 % (42.0-52.0); HEMOGLOBIN 15.1 G/DL (14.2-18.0); LYMPHOCYTES % (AUTO) 22.9 % (20.0-45.0); MEAN CORPUSCULAR VOLUME 98 FL (80-99); NEUTROPHILS % (AUTO) 65.6 % (45.0-75.0); PLATELET COUNT 189 K/UL (150-450); RED BLOOD COUNT 4.41 M/UL (4.70-6.10); RED CELL DISTRIBUTION WIDTH 10.9 % (11.6-14.8); WHITE BLOOD COUNT 7.1 K/UL (4.8-10.8)
[2017-06-21 08:58] LABS: ALANINE AMINOTRANSFERASE 28 U/L (12-78); ALBUMIN 3.5 G/DL (3.4-5.0); ALBUMIN/GLOBULIN RATIO 1.3 (1.0-2.7); ALKALINE PHOSPHATASE 71 U/L (46-116); ANION GAP 9 mmol/L (5-15); ASPARTATE AMINO TRANSFERASE 22 U/L (15-37); BILIRUBIN,TOTAL 0.3 MG/DL (0.2-1.0); BLOOD UREA NITROGEN 16 mg/dL (7-18); CALCIUM 8.6 MG/DL (8.5-10.1); CARBON DIOXIDE 25 MMOL/L (21-32); CHLORIDE 105 MMOL/L (98-107); CREATININE 0.8 MG/DL (0.55-1.30); POTASSIUM 4.1 MMOL/L (3.5-5.1); SODIUM 139 MMOL/L (136-145)
[2017-06-21] MEDS: Benztropine 1mg tab ORAL SCH ×2 (09:41→17:19)
[2017-06-21] MEDS: Ziprasidone 20mg cap ORAL SCH ×2 (09:42→17:19)
[2017-06-21] MEDS: carBAMazepine 200mg tab ORAL SCH ×2 (09:42→21:00)
[2017-06-21] MEDS: Heparin 5000 units/ml inj SUBQ SCH ×2 (09:43→21:02)
--- NOTE | 2017-06-21 11:00 | Consultation ---
History of Present Illness General Date patient seen: Jun 21, 2017 Present Illness Allergies: Coded Allergies: CHLORPROMAZINE (Verified Allergy, Unknown, 04/20/17) DIVALPROEX SODIUM (Verified Allergy, Unknown, 04/17/17) FISH CONTAINING PRODUCTS (Verified Allergy, Unknown, 06/20/17) Medication History Scheduled Aspirin* (Aspirin*), 81 MG ORAL DAILY, (Reported) Benztropine Mesylate* (Benztropine Mesylate*), 2 MG PO BID, (Reported) Benztropine Mesylate* (Benztropine Mesylate*), 2 MG ORAL TWICE A DAY, (Reported) Carbamazepine (Tegretol*), 200 MG PO TID, (Reported) Docusate Sodium* (Colace*), 100 MG ORAL DAILY, (Reported) Gabapentin* (Gabapentin*), 300 MG ORAL EVERY 8 HOURS, (Reported) Lactulose (Lactulose*), 15 ML ORAL DAILY, (Reported) Lamotrigine (Lamictal), 50 MG ORAL TWICE A DAY, (Reported) Levetiracetam (Keppra), 1,500 MG ORAL EVERY 12 HOURS, (Reported) Multivitamin (Multi Vitamin Daily), 1 TAB ORAL DAILY, (Reported) Nicotine 14MG Patch* (Nicoderm Cq 14MG*), 1 EACH TD DAILY, (Reported) Nitroglycerin (Nitroglycerin), 0.4 MG SL PRN, (Reported) Olopatadine (Patanol), 1 DROP OD DAILY, (Reported) Quetiapine Fumarate* (Seroquel*), 200 MG ORAL EVERY 8 HOURS, (Reported) Trazodone* (Trazodone*), 50 MG ORAL BEDTIME, (Reported) Scheduled PRN Acetaminophen* (Acetaminophen 325MG Tablet*), 650 MG ORAL Q4H PRN for Fever/ Headache/Mild Pain, (Reported) Al Hydroxide/mg Hydroxide (Mag-Al Plus Suspension), 30 ML PO Q6HR PRN for prn, ( Reported) Albuterol Sulfate (Ventolin Hfa), 2 PUFFS INH EVERY 6 HOURS PRN for Shortness of Breath, (Reported) Diphenhydramine HCl (Benadryl), 50 MG PO QHS PRN for Itching, (Reported) Hydrocodone Bit/Acetaminophen 5-325* ([place] 5-325*), 1 TAB ORAL Q6H PRN for For Pain, (Reported) Lorazepam* (Ativan*), 0.5 MG ORAL Q6HR PRN for For Anxiety, (Reported) Polyethylene Glycol 3350* (Polyethylene Glycol 3350*), 17 GM ORAL BEDTIME PRN for Constipation, (Reported) Temazepam* (Restoril*), 15 MG ORAL BEDTIME PRN for Insomnia, (Reported) Miscellaneous Medications Folic Acid/Vitamin B Comp W-C (Lia-Ramona Tablet), 1 MG PO, (Reported) Unable to Obtain Medications (Unable To Obtain Meds), (Reported) Discontinued Medications Chlorpromazine Hcl (Chlorpromazine Hcl), 20 MG PO TID, (Reported) Discontinued Reason: MD discontinued med Clonidine HCl (Clonidine HCl), 0.1 MG PO, (Reported) Discontinued Reason: MD discontinued med Fish Oil (Fish Oil 1,000 mg Capsule), 1,000 MG ORAL DAILY Discontinued Reason: Pt had allergic rxn Folic Acid* (Folic Acid*), 1 MG ORAL DAILY, (Reported) Discontinued Reason: MD discontinued med Hydroxyzine Hcl (Hydroxyzine Hcl), 10 MG PO EVERY 8 HOURS PRN for Itching, ( Reported) Discontinued Reason: MD discontinued med Lamotrigine* (Lamictal*), 50 MG ORAL BID, (Reported) Discontinued Reason: Medication dose changed Levetiracetam* (Levetiracetam*), 1,500 MG ORAL TWICE A DAY, (Reported) Discontinued Reason: Medication dose changed Lorazepam* (Ativan*), 1 MG ORAL Q6HR PRN for prn, (Reported) Discontinued Reason: MD discontinued med Meclizine Hcl* (Meclizine*), 25 MG ORAL, (Reported) Discontinued Reason: Therapy completed Morphine 10mg/5ml Oral Soln* (Morphine 10mg/5ml Oral Soln*), 15 MG ORAL EVERY 12 HOURS PRN for For Pain, (Reported) Discontinued Reason: Therapy completed Morphine HCl (Morphine Sulfate ER), 15 MG ORAL DAILY, (Reported) Discontinued Reason: Therapy completed Morphine Sulfate* (Morphine Sulfate*), 1 MG IV Q4HR PRN for Pain Scale (6-10), ( Reported) Discontinued Reason: Therapy completed Ondansetron* (Zofran*), 4 MG ORAL Q6H PRN for Nausea & Vomiting, (Reported) Discontinued Reason: Therapy completed Tramadol Hcl* (Ultram*), 50 MG ORAL Q6H PRN for For Pain, (Reported) Discontinued Reason: Therapy completed Ziprasidone Hcl* (Geodon*), 80 MG ORAL TWICE A DAY, (Reported) Discontinued Reason: Therapy completed Zolpidem Tartrate* (Zolpidem Tartrate*), 5 MG ORAL BEDTIME PRN for Insomnia, ( Reported) Discontinued Reason: MD discontinued med Patient History Healthcare decision maker Resuscitation status Full Code Advanced Directive on File No Physical Exam Last 24 Hour Vital Signs Date Time Temp Pulse Resp B/P (MAP) Pulse Ox O2 Delivery O2 Flow Rate FiO2 06/21/17 08:00 97.7 71 18 101/68 94 06/21/17 06:38 97.1 06/21/17 04:00 97.1 70 20 98/59 91 06/21/17 00:00 97.7 78 21 101/57 97 06/20/17 20:00 97.9 73 21 107/68 96 06/20/17 16:00 98.0 86 20 122/71 95 06/20/17 12:00 98.0 77 18 118/68 97 Intake and Output 06/20/17 06/21/17 19:00 07:00 Intake Total 480 ml Output Total 350 ml 850 ml Balance 130 ml -850 ml Intake Oral 480 ml Output Urine Total 350 ml 850 ml Laboratory Tests Test 06/21/17 06:40 White Blood Count 7.1 K/UL (4.8-10.8) Red Blood Count 4.41 M/UL (4.70-6.10) L Hemoglobin 15.1 G/DL (14.2-18.0) Hematocrit 43.1 % (42.0-52.0) Mean Corpuscular Volume 98 FL (80-99) Mean Corpuscular Hemoglobin 34.4 PG (27.0-31.0) H Mean Corpuscular Hemoglobin Concent 35.1 G/DL (32.0-36.0) Red Cell Distribution Width 10.9 % (11.6-14.8) L Platelet Count 189 K/UL (150-450) Mean Platelet Volume 8.1 FL (6.5-10.1) Neutrophils (%) (Auto) 65.6 % (45.0-75.0) Lymphocytes (%) (Auto) 22.9 % (20.0-45.0) Monocytes (%) (Auto) 8.0 % (1.0-10.0) Eosinophils (%) (Auto) 2.6 % (0.0-3.0) Basophils (%) (Auto) 0.9 % (0.0-2.0) Sodium Level 139 MMOL/L (136-145) Potassium Level 4.1 MMOL/L (3.5-5.1) Chloride Level 105 MMOL/L (98-107) Carbon Dioxide Level 25 MMOL/L (21-32) Anion Gap 9 mmol/L (5-15) Blood Urea Nitrogen 16 mg/dL (7-18) Creatinine 0.8 MG/DL (0.55-1.30) Estimat Glomerular Filtration Rate > 60 mL/min (>60) Glucose Level 87 MG/DL (74-106) Calcium Level 8.6 MG/DL (8.5-10.1) Total Bilirubin 0.3 MG/DL (0.2-1.0) Aspartate Amino Transf (AST/SGOT) 22 U/L (15-37) Alanine Aminotransferase (ALT/SGPT) 28 U/L (12-78) Alkaline Phosphatase 71 U/L (46-116) Total Protein 6.2 G/DL (6.4-8.2) L Albumin 3.5 G/DL (3.4-5.0) Globulin 2.7 g/dL Albumin/Globulin Ratio 1.3 (1.0-2.7) Thyroid Stimulating Hormone (TSH) 1.464 uiU/mL (0.358-3.740) Height (Feet): 5 Height (Inches): 7.00 Weight (Pounds): 162 Medications Current Medications Medications (Trade) Dose Ordered Sig/Sharon Route PRN Reason Start Time Stop Time Status Last Admin Dose Admin Acetaminophen (Tylenol) 650 mg Q4H PRN ORAL fever 06/20/17 10:00 07/20/17 09:59 Al Hydroxide/Mg Hydroxide (Mylanta II) 30 ml Q6H PRN ORAL dyspepsia 06/20/17 08:15 07/20/17 08:14 Benztropine Mesylate (Cogentin) 2 mg BID ORAL 06/20/17 18:00 07/20/17 17:59 06/21/17 09:41 Carbamazepine (TEGretol) 200 mg Q12HR ORAL 06/20/17 21:00 07/20/17 20:59 06/21/17 09:42 Dextrose (Dextrose 50%) STAT PRN IV Hypoglycemia 06/20/17 08:15 07/20/17 08:14 Escitalopram Oxalate (Lexapro) 10 mg DAILY ORAL 06/21/17 09:00 07/21/17 08:59 06/21/17 09:42 Gabapentin (Neurontin) 300 mg EVERY 8 HOURS ORAL 06/20/17 14:00 07/20/17 13:59 06/21/17 06:07 Heparin Sodium (Porcine) (Heparin 5000 units/ml) 5,000 units EVERY 12 HOURS SUBQ 06/20/17 11:00 07/20/17 10:59 06/21/17 09:43 Lamotrigine (LaMICtal) 100 mg Q12HR ORAL 06/20/17 21:00 07/20/17 20:59 06/21/17 09:42 Levetiracetam (Keppra) 1,000 mg EVERY 12 HOURS ORAL 06/20/17 21:00 07/20/17 20:59 06/21/17 09:42 Lorazepam (Ativan 2mg/ml 1ml) 0.5 mg Q4H PRN IV For Anxiety 06/20/17 08:15 06/27/17 08:14 06/20/17 13:46 Morphine Sulfate (Morphine Sulfate) 2 mg Q4H PRN IVP For Pain 4-6 06/20/17 08:15 06/27/17 08:14 06/21/17 06:08 Morphine Sulfate (Morphine Sulfate) 4 mg Q4H PRN IVP For Pain 7-10 06/20/17 08:15 06/27/17 08:14 Nicotine (Nicoderm) 1 patch Q24H TDERMAL 06/20/17 14:00 07/20/17 13:59 06/20/17 15:18 Ondansetron HCl (Zofran) 4 mg Q6H PRN IVP Nausea & Vomiting 06/20/17 08:15 07/20/17 08:14 Polyethylene Glycol (Miralax) 17 gm HSPRN PRN ORAL Constipation 06/20/17 08:15 07/20/17 08:14 Quetiapine Fumarate (SEROquel) 300 mg BEDTIME ORAL 06/20/17 21:00 07/20/17 17:59 Ziprasidone (Geodon) 20 mg TWICE A DAY ORAL 06/20/17 18:00 07/20/17 17:59 06/21/17 09:42 Zolpidem Tartrate (Ambien) 5 mg HSPRN PRN ORAL Insomnia 06/20/17 08:15 06/27/17 08:14 Assessment/Plan Assessment/Plan (1) Epilepsy (2) Neuropathic pain (3) Chronic pain syndrome (4) Right knee pain Seen dictated EMMA AGUILAR Jun 21, 2017 11:00
--- NOTE | 2017-06-21 13:10 | Pulmonology Progress Note ---
Assessment/Plan Assessment/Plan ASSESSMENT psychiatric disorder exacerbation with agitation chronic seizure disorder r/o pseudoseizures. chronic pain syndrome with drug seeking behavior HTN COPD extrapyramidal syndrome, drug induced SI s/p mechanical fall R hand pain w/chair bound nicotine dependency with withdrawal PLAN OF CARE [facility] floor currently denying any SI or plans to commit suicide psych meds resume psych eval done, reviewed and optimized psych regimen seizure precautions continue current antiepileptic regimen neuro consult appreciated PT/OT pain management, pain specialist follows fall precautions O2 HHN prn skilled nursing facility counselor on smoking cessation Nicotine patch DVT prophylaxis case discussed and evaluated by supervising physician Subjective Allergies: Coded Allergies: CHLORPROMAZINE (Verified Allergy, Unknown, 04/20/17) DIVALPROEX SODIUM (Verified Allergy, Unknown, 04/17/17) FISH CONTAINING PRODUCTS (Verified Allergy, Unknown, 06/20/17) Subjective denies chest pain, SOB, no signs of resp distress seen and evaluated by psych and neuro Objective Last 24 Hour Vital Signs Date Time Temp Pulse Resp B/P (MAP) Pulse Ox O2 Delivery O2 Flow Rate FiO2 06/21/17 12:00 98.2 84 20 121/66 97 06/21/17 08:00 97.7 71 18 101/68 94 06/21/17 06:38 97.1 06/21/17 04:00 97.1 70 20 98/59 91 06/21/17 00:00 97.7 78 21 101/57 97 06/20/17 20:00 97.9 73 21 107/68 96 06/20/17 16:00 98.0 86 20 122/71 95 Intake and Output 06/20/17 06/21/17 19:00 07:00 Intake Total 480 ml Output Total 350 ml 850 ml Balance 130 ml -850 ml Intake Oral 480 ml Output Urine Total 350 ml 850 ml Objective General Appearance: no apparent distress, alert Lines, tubes and drains: peripheral HEENT: normocephalic, atraumatic, anicteric, mucous membranes moist Neck: supple Respiratory/Chest: lungs clear - with moderate air exchange , no respiratory distress, no accessory muscle use Cardiovascular/Chest: normal rate, no JVD Abdomen: normal bowel sounds, non tender, soft Extremities: normal range of motion, no calf tenderness, normal capillary refill, other - TTP dorsum R hand Skin Exam: warm/dry Neurologic: abnormal gait - w/chair bound , alert, responsive Laboratory Tests 06/21/17 06:40: White Blood Count 7.1, Red Blood Count 4.41L, Hemoglobin 15.1, Hematocrit 43.1, Mean Corpuscular Volume 98, Mean Corpuscular Hemoglobin 34.4H, Mean Corpuscular Hemoglobin Concent 35.1, Red Cell Distribution Width 10.9L, Platelet Count 189, Mean Platelet Volume 8.1, Neutrophils (%) (Auto) 65.6, Lymphocytes (%) (Auto) 22.9, Monocytes (%) (Auto) 8.0, Eosinophils (%) (Auto) 2.6, Basophils (%) (Auto ) 0.9, Sodium Level 139, Potassium Level 4.1, Chloride Level 105, Carbon Dioxide Level 25, Anion Gap 9, Blood Urea Nitrogen 16, Creatinine 0.8, Estimat Glomerular Filtration Rate > 60, Glucose Level 87, Calcium Level 8.6, Total Bilirubin 0.3, Aspartate Amino Transf (AST/SGOT) 22, Alanine Aminotransferase ( ALT/SGPT) 28, Alkaline Phosphatase 71, Total Protein 6.2L, Albumin 3.5, Globulin 2.7, Albumin/Globulin Ratio 1.3, Thyroid Stimulating Hormone (TSH) 1.464 Current Medications Medications (Trade) Dose Ordered Sig/Sharon Route PRN Reason Start Time Stop Time Status Last Admin Dose Admin Acetaminophen (Tylenol) 650 mg Q4H PRN ORAL fever 06/20/17 10:00 07/20/17 09:59 Al Hydroxide/Mg Hydroxide (Mylanta II) 30 ml Q6H PRN ORAL dyspepsia 06/20/17 08:15 07/20/17 08:14 Benztropine Mesylate (Cogentin) 2 mg BID ORAL 06/20/17 18:00 07/20/17 17:59 06/21/17 09:41 Carbamazepine (TEGretol) 200 mg Q12HR ORAL 06/20/17 21:00 07/20/17 20:59 06/21/17 09:42 Dextrose (Dextrose 50%) STAT PRN IV Hypoglycemia 06/20/17 08:15 07/20/17 08:14 Escitalopram Oxalate (Lexapro) 10 mg DAILY ORAL 06/21/17 09:00 07/21/17 08:59 06/21/17 09:42 Gabapentin (Neurontin) 300 mg EVERY 8 HOURS ORAL 06/20/17 14:00 07/20/17 13:59 06/21/17 06:07 Heparin Sodium (Porcine) (Heparin 5000 units/ml) 5,000 units EVERY 12 HOURS SUBQ 06/20/17 11:00 07/20/17 10:59 06/21/17 09:43 Lamotrigine (LaMICtal) 100 mg Q12HR ORAL 06/20/17 21:00 07/20/17 20:59 06/21/17 09:42 Levetiracetam (Keppra) 1,000 mg EVERY 12 HOURS ORAL 06/20/17 21:00 07/20/17 20:59 06/21/17 09:42 Lidocaine (Lidoderm 5% PATCH) 1 patch DAILY TDERMAL 06/21/17 12:00 07/21/17 11:59 06/21/17 11:51 Lorazepam (Ativan 2mg/ml 1ml) 0.5 mg Q4H PRN IV For Anxiety 06/20/17 08:15 06/27/17 08:14 06/20/17 13:46 Morphine Sulfate (Morphine Sulfate) 2 mg Q4H PRN IVP For Pain 4-6 06/20/17 08:15 06/27/17 08:14 06/21/17 06:08 Morphine Sulfate (Morphine Sulfate) 4 mg Q4H PRN IVP For Pain 7-10 06/20/17 08:15 06/27/17 08:14 Nicotine (Nicoderm) 1 patch Q24H TDERMAL 06/20/17 14:00 07/20/17 13:59 06/20/17 15:18 Ondansetron HCl (Zofran) 4 mg Q6H PRN IVP Nausea & Vomiting 06/20/17 08:15 07/20/17 08:14 Polyethylene Glycol (Miralax) 17 gm HSPRN PRN ORAL Constipation 06/20/17 08:15 07/20/17 08:14 Quetiapine Fumarate (SEROquel) 300 mg BEDTIME ORAL 06/20/17 21:00 07/20/17 17:59 Ziprasidone (Geodon) 20 mg TWICE A DAY ORAL 06/20/17 18:00 07/20/17 17:59 06/21/17 09:42 Zolpidem Tartrate (Ambien) 5 mg HSPRN PRN ORAL Insomnia 06/20/17 08:15 06/27/17 08:14 Edgar ([facility])Ana NP Jun 21, 2017 13:10
[2017-06-21] MEDS: LORazepam Inj 2mg/ml 1ml IV PRN (15:32)
--- NOTE | 2017-06-21 23:05 | Consultation ---
DATE OF CONSULTATION: 06/20/2017 NEUROLOGICAL CONSULTATION CONSULTING PHYSICIAN: Ghassan Espinoza M.D. REQUESTING PHYSICIAN: Curtis Gavin D.O. HISTORY OF PRESENT ILLNESS: This 42-year-old man seen in neurological consultation to evaluate the involuntary movement and inability to ambulate. According to the medical records known that the patient, who is residing in a nursing facility, became agitated, anxious, expressing suicidal ideation. He was scheduled to be transferred to psychiatric facility, but he signed AMA and took a taxi. He was admitted to this facility after he was complaining that while taxi, he fell down injuring his right hand. On admission, his vital signs were stable. Blood pressure 110/80. He was afebrile. Heart rate of 94. There was no evidence of trauma noted. His initial workup included lab studies with normal CBC, unremarkable chemistry panel, and negative toxicology panel. Urinalysis, 1+ leukocyte esterase. X-ray of the hand revealed no fracture, no dislocation. During the examination, the patient was noted to have involuntary movement in both upper and lower extremities, which were thought to represent Parkinson disease. The patient is known to me from a previous assessment in April 2017. He has a history of chronic psychiatric disorder diagnosed recently with PTSD. He has multiple medical issues such as hypertension and history of cardiac arrhythmia. He had severe head trauma five years ago, following which he had difficulty ambulation, became wheelchair bound, and developed recurrent what seems generalized seizure activity. He has a history of COPD, substance abuse, chronic cigarette smoker. The patient's most recent CT scan of the brain last year revealed no intracranial abnormalities. The patient described being with chronic pain syndrome, drug-seeking behavior, and displayed benzodiazepine dependency. MEDICATIONS: Treatment prior to admission included Tylenol as needed, albuterol, aspirin, benztropine 2 mg twice a day, Tegretol 200 mg t.i.d., Benadryl 50 mg p.r.n., Colace, folate, gabapentin 300 mg t.i.d., [place] q.6 h. p.r.n., lactulose, Lamictal 50 mg b.i.d., Keppra 1500 mg b.i.d., Ativan 0.5 mg q.6 h. p.r.n., he has nicotine patch, Nitro, Seroquel 200 mg q.8 h., temazepam, and trazodone 150 mg at bedtime. ALLERGIES: Depakote, fish, and chlorpromazine. SOCIAL HISTORY: The patient has a history of alcohol and drug abuse, but he indicated he has not taken it for some time. He admits having some smoking. REVIEW OF SYMPTOMS: The patient now indicated that he has generalized aches and pains and headaches. He has "Parkinson symptoms", asking to give him Ativan, which will "relax the movement". No chest pain. No palpitations. No respiratory problems. Denies abdominal pain or discomfort. No urine or bowel incontinence. PHYSICAL EXAMINATION: GENERAL: This is a well-developed, well-nourished man, not in acute distress, lying comfortably in bed. VITAL SIGNS: Now are stable. Blood pressure 110/68, afebrile. HEENT: Head, normocephalic. No evidence of trauma. Eyes, ears, and throat are clear. NECK: Supple. No meningeal signs. MUSCULOSKELETAL: No deformities noted. Peripheral pulses 1+ and symmetric. NEUROLOGIC: Mental status: The patient is alert and oriented x3. Speech is fluent. He was able to joke. He was able to follow commands. He mentioned he did see me previously on several occasions. His main concern was having "Parkinson disease", for which he requested to have Ativan. He was able to follow commands. He was emotionally inappropriate. CRANIAL NERVE II: Pupils both responding to light and accommodation. Extraocular movements full range. CRANIAL NERVE V: Normal corneal responses. CRANIAL NERVE VII: No facial asymmetry. CRANIAL NERVE VIII: Grossly normal hearing. CRANIAL NERVES IX THROUGH XII: Tongue is in midline. Symmetric palate elevation. MOTOR EXAMINATION: Intermittent choreoathetosis, both upper and lower extremities. No muscle wasting. Strength 5/5 in both upper extremities, 5/5 both lower extremities, but when asked to lift leg, he was stating that he is unable to do so. Lifted leg with fall down uncontrollably, which was contradictory to his exam. Deep tendon reflexes 2+ bilaterally symmetric. Plantar response is flexor. No pathological responses. Sensory exam withdrawing to pin stimulation in all limbs. Gait not tested. The patient indicates he is unable to ambulate, only wheelchair-bound. IMPRESSION: 1. History of recurrent generalized seizure disorder, probably pseudoseizures. 2. Chronic psychiatric disorder, posttraumatic stress disorder. 3. Recent onset of dyskinesia in both upper and lower extremities resembling drug-induced involved extrapyramidal syndrome, doubt Parkinson disease. 4. History of hypertension. 5. History of chronic obstructive pulmonary disease. 6. History of substance abuse. 7. Polypharmacy. RECOMMENDATIONS: 1. The patient to be seen by Psychiatry to adjust antipsychotic treatment. 2. The patient on several anticonvulsants, remained on Lamictal, which has a good psychotropic effect as well. I would recommend to taper off slowly Tegretol and gabapentin. 3. Continue with Cogentin 2 mg b.i.d. 4. Observe for paroxysmal events. 5. For exacerbation of seizure activity, I would transfer the patient to a facility where video monitoring EEG study could be provided. Thank you for allowing me to see this interesting patient in neurological consultation. Ghassan Espinoza M.D. DR: Lisa JOB#: [id number] CC:
--- NOTE | 2017-06-21 23:05 | Consultation ---
DATE OF CONSULTATION: 06/20/2017 INITIAL PSYCHIATRIC CONSULTATION REQUESTING PHYSICIAN: Curtis Gavin D.O. HISTORY OF PRESENT ILLNESS: This is a 42-year-old male patient. This patient was admitted to the hospital at [facility]. The reason why this patient was admitted is because he has been having severe agitation and mood lability over at his assisted, but he also has altered mental status and confusion. Cognition has declined below baseline and that is the reason why the patient does have initial psychiatric consultation, but in addition to that he has medical problems such as seizure disorder and epilepsy, PTSD, but he also has overlying diagnosis of schizoaffective bipolar type and that has caused him to be very agitated in the past. So that is why, his attending physician, Dr. Curtis Gavin has requested daily psychiatric consultation to manage this patient's behavior, mood lability and manage his psychotropic medications to stabilize his mood. His mood lability has worsened secondary to stress of his medical illness. ALLERGIES: He has allergies to Thorazine and Depakote. SOCIAL HISTORY: The patient is currently living in a place known as [facility]. He is financially supported by [facility] and [facility]. SUBSTANCE ABUSE HISTORY: Denies any recent use of any drugs or alcohol at this time. PSYCHIATRIC HISTORY: This patient has a history of schizoaffective bipolar type. He has had multiple psychiatric admissions. He is on a psychotropic medication regimen consisting of Seroquel 200 mg three times a day, Lamictal 50 mg twice a day and he is also on Tegretol 200 mg three times a day, but he is also on trazodone 50 mg at bedtime and then per chart, he has also had a history of being on Thorazine 25 mg three times a day, but he does have some agitation and irritability in the past. Psychiatric history, schizoaffective bipolar type and multiple psychiatric admissions. Family psychiatric history denies. better and he has a place to live has no support system. Pain assessment 07/25 pain. MENTAL STATUS EXAMINATION: This is a 42-year-old male, appearing disheveled, irritable, agitated. Affect guarded, restricted. Intellect poor. Mood depressed, anxious. Motor activity and psychomotor agitation. Attention span is poor. Attention x2. Speech is pressured. Thought process disorganized. Thought content auditory hallucinations, slight paranoid delusions. Memory, 3/3 word recall after five minute delay with good memory. Insight and judgment is poor. DIAGNOSIS: Schizoaffective bipolar type. Medical problems include, he has a history of seizure disorder, psychosocial stressors, financial stressors. PLAN: The plan for this patient, I am going to continue this patient on Lamictal 50 mg twice a day and I am also going to treat this patihreent with Seroquel 200 mg three times a day as well as Tegretol 200 mg two times a day, Seroquel 200 mg three times a day, but because he still says he has had some mood lability even on that combination, I am going to restart this patient's Geodon and I am going to start him on a low dose 20 mg twice a day. Provide him with supportive therapy and encourage him interact appropriate with staff and he will continue to be followed by Psychiatry throughout hospital course. Chart reviewed and discussed with staff. The patient was seen and assessed at bedside. Supportive therapy for 15 or 20 minutes was provided today. I would like to thank, Dr. Curtis Gavin, for this interesting consultation. Wing Cervantes M.D. DR: HIMANSHU JOB#: [id number] CC:
--- NOTE | 2017-06-21 23:05 | Consultation ---
DATE OF CONSULTATION: 06/20/2017 HISTORY OF PRESENT ILLNESS: This is a 42-year-old male with history of schizophrenia, hypertension, COPD, asthma, peripheral neuropathy, Parkinson disease, and depression, who has been admitted to the hospital for pain management. The patient also presented with dyskinesia and initially he presented with depressive symptoms and stated that he has suicidal thoughts, orientation to harm himself. The patient also is on trazodone and has been having side effects in which he has penile erection and priapism. The patient has poor insight and judgment into his mental conditions. PAST PSYCHIATRIC HISTORY: Significant for depression and schizophrenia by history. PAST MEDICAL HISTORY: Significant for neuropathy, hypertension, COPD, seizure disorder, and Parkinson disease. He is wheelchair bound. ALLERGIES: Include chlorpromazine, Depakote, fish, and trazodone. SUBSTANCE ABUSE HISTORY: No known history of illicit drug use or alcohol. MENTAL STATUS EXAMINATION: The patient is alert and oriented times self, place, and situation he is in. Mood is neutral. Affect is full range. Congruent with mood. Thought process is concrete. Thought content, no suicidal or homicidal ideations. No delusions. Insight and judgment is fair. ASSESSMENT: Tropic I Major depressive disorder. Tropic II Deferred. Tropic III As above. Tropic IV Low. Tropic V 25. PLAN: 1. The patient will be continued on Seroquel. 2. We will decrease the dose mg at bedtime. 3. We will start the patient on Lexapro. 4. Provide the patient with supportive therapy and reality orientation. Monica Herbert M.D. DR: Brinda JOB#: [id number] CC:
--- NOTE | 2017-06-21 23:05 | History and Physical Report ---
DATE OF ADMISSION: 06/20/2017 TIME SEEN: On 06/20/2017 9 a.m. ATTENDING PHYSICIAN: Curtis Gavin D.O. CONSULTANTS: 1. Patricio Strong M.D. 2. Carolina Dye M.D. 3. Wing Cervantes M.D. 4. Ghassan Espinoza M.D. CHIEF COMPLAINT: Agitation, confusion, intractable pain, and seizure. BRIEF HISTORY: This 42-year-old male from [facility] presented with the above-mentioned diagnosis, currently sleeping in [facility]. No complaint. PAST MEDICAL HISTORY: Encephalopathy, seizure, COPD, epilepsy, priapism, hypertension, and chronic pain. PAST SURGICAL HISTORY: shunt. MEDICATIONS: Neurontin, Seroquel, Cogentin, Tegretol, Lamictal, Keppra, morphine, MiraLax, Zofran, Ativan, Ambien, and morphine. ALLERGIES: Chlorpromazine and divalproex. SOCIAL HISTORY: Positive smoking. No alcohol. No intravenous drug abuse. FAMILY HISTORY: Noncontributory. REVIEW OF SYSTEMS: No chest pain. No shortness of breath. No nausea, vomiting, or diarrhea. PHYSICAL EXAMINATION: GENERAL: Sleepy in ER [facility], oriented x3, no acute distress. VITAL SIGNS: Temperature is 97, pulse 78, respirations 17, and blood pressure 112/57. CARDIOVASCULAR: No murmurs. LUNGS: Distant and clear. ABDOMEN: Bowel sounds positive. Nontender. Nondistended. EXTREMITIES: No cyanosis or edema. NEUROLOGIC: The patient moves all extremities, slightly weak. LABORATORY DATA: Pending. ASSESSMENT: 1. Agitation. 2. Psychiatric history. 3. Chronic obstructive pulmonary disease. 4. Hypertension. 5. Lower extremity chronic pain. 6. Intractable pain. 7. Seizure. PLAN: 1. Seizure. 2. Blood pressure control. 3. Pain control. 4. Dietary follow. 5. OT, PT. 6. Psych treatment. 7. CBC and BMP in morning. 8. Resume home medications. 9. We will continue to follow this patient. Curtis Gavin D.O. DR: Rossy JOB#: [id number] CC:
--- NOTE | 2017-06-21 23:45 | Progress Note ---
DATE: 06/21/2017 SUBJECTIVE: The patient is a 42-year-old male patient with agitation, irritability, and mood lability. MENTAL STATUS EXAMINATION: This is a 42-year-old male with psychomotor retardation. Mood is depressed. Affect is guarded and restricted. Thought process is disorganized and illogical. Denies any current suicidal or homicidal thoughts. Insight and judgment is poor. DIAGNOSIS: Schizoaffective, bipolar type. PLAN: Plan is to treat him with Seroquel 200 mg 3 times a day, Geodon 20 mg twice a day, Tegretol 200 mg three times a day, and Lamictal mg twice a day. A 15 to 20 minutes of supportive therapy provided. Chart was reviewed and discussed with staff. Seen and assessed at bedside. Wing Cervantes M.D. DR: JOSSELINE JOB#: [id number] CC:
[2017-06-22] VITALS: BP 101/58
[2017-06-22 04:00] VITALS: BP 99/51
[2017-06-22 06:44] LABS: EOSINOPHILS % (AUTO) 2.9 % (0.0-3.0); HEMATOCRIT 42.5 % (42.0-52.0); HEMOGLOBIN 14.9 G/DL (14.2-18.0); MEAN CORPUSCULAR VOLUME 98 FL (80-99); MONOCYTES % (AUTO) 6.7 % (1.0-10.0); NEUTROPHILS % (AUTO) 58.4 % (45.0-75.0); PLATELET COUNT 204 K/UL (150-450); RED BLOOD COUNT 4.34 M/UL (4.70-6.10); WHITE BLOOD COUNT 7.2 K/UL (4.8-10.8)
--- NOTE | 2017-06-22 06:45 | Consultation ---
DATE OF CONSULTATION: 06/21/2017 NOTE: POOR AUDIO PAIN MANAGEMENT CONSULTATION CONSULTING PHYSICIAN: Carolina Dye M.D. REFERRING PHYSICIAN: Curtis Gavin D.O. PHYSICIAN MOSAIC LAYER: Maggy Dickens CHIEF COMPLAINT: Generalized body pain HISTORY OF PRESENT ILLNESS: This is a 42 y/o male show is a known patient from prior admission with history of epilepsy with chronic pain, on morphine 2 to 4 mg IV every 4 hours as needed for moderate to severe pain. Pain level has been low. We were consulted so that the patient would have adequate pain control while here in the hospital. REVIEW OF SYSTEMS: Denies rash, fever, chills, sweating, dizziness, drowsiness, blurred vision, sore throat, or change in his weight. No shortness of breath. No nausea, vomiting, diarrhea, or blood in stool or urine. No bowel or bladder incontinence. No dysuria. He is complaining of generalized body pain. PHYSICAL EXAMINATION: GENERAL: Alert, awake, and oriented. VITAL SIGNS: Blood pressure 101/68, heart rate is 71, oxygen saturation 94%, respiratory rate 18,98 degrees Fahrenheit. LUNGS: Clear. HEART: Regular. ABDOMEN: Benign. EXTREMITIES: No cyanosis. No clubbing. NEUROLOGIC: Weakness noted in bilateral upper extremity and lower extremity. ASSESSMENT AND PLAN: This is a 42-year-old male with epilepsy, neuropathic pain, chronic pain syndrome, and right knee pain. The patient will be continued on morphine and started on Lidoderm patch to the right knee Q12H on Q12H off. The patient was discussed with Dr. Dye and Dr. Dye concurred. We will follow the patient. Thank you very much for the courtesy of this consultation. Carolina Dye M.D. KATHY Dickens DR: MIMI JOB#: [id number] CC: OTONIEL
[2017-06-22 07:32] LABS: ANION GAP 8 mmol/L (5-15); BLOOD UREA NITROGEN 12 mg/dL (7-18); CALCIUM 8.7 MG/DL (8.5-10.1); CARBON DIOXIDE 26 MMOL/L (21-32); CHLORIDE 106 MMOL/L (98-107); POTASSIUM 4.4 MMOL/L (3.5-5.1); SODIUM 140 MMOL/L (136-145)
[2017-06-22 08:00] VITALS: BP 101/57
--- NOTE | 2017-06-22 08:43 | General Progress Note ---
Assessment/Plan Assessment/Plan (1) Epilepsy (2) Neuropathic pain (3) Chronic pain syndrome (4) Right knee pain Pt will be continued on the Morphine and Lidoderm patch D/w Dr. Dye and he concurred. Subjective Date patient seen: Jun 22, 2017 Time patient seen: 07:15 - am Allergies: Coded Allergies: CHLORPROMAZINE (Verified Allergy, Unknown, 04/20/17) DIVALPROEX SODIUM (Verified Allergy, Unknown, 04/17/17) FISH CONTAINING PRODUCTS (Verified Allergy, Unknown, 06/20/17) Subjective REVIEW OF SYSTEMS: Denies rash, fever, chills, sweating, dizziness, drowsiness, blurred vision, sore throat, or change in his weight. No shortness of breath. No nausea, vomiting, diarrhea, or blood in stool or urine. No bowel or bladder incontinence. No dysuria. He is complaining of generalized body pain. SUBJECTIVE: Patient is in bed and reports that his pain has been stable on the Morphine and he has no new complaints. Objective Last 24 Hour Vital Signs Date Time Temp Pulse Resp B/P (MAP) Pulse Ox O2 Delivery O2 Flow Rate FiO2 06/22/17 08:00 97.2 75 20 101/57 06/22/17 04:00 95 Nasal Cannula 2.0 06/22/17 04:00 98.0 63 21 99/51 95 06/22/17 00:00 96 Nasal Cannula 2.0 06/22/17 00:00 97.5 69 20 101/58 96 06/21/17 20:00 97 Nasal Cannula 2.0 06/21/17 20:00 97.7 79 21 121/67 97 06/21/17 16:42 97.7 72 17 107/57 Nasal Cannula 2.0 06/21/17 12:00 98.2 84 20 121/66 97 Intake and Output 06/21/17 06/22/17 19:00 07:00 Intake Total 960 ml Output Total 700 ml 2100 ml Balance 260 ml -2100 ml Intake Oral 960 ml Output Urine Total 700 ml 2100 ml # Voids 4 Laboratory Tests 06/22/17 03:15: White Blood Count 7.2, Red Blood Count 4.34L, Hemoglobin 14.9, Hematocrit 42.5, Mean Corpuscular Volume 98, Mean Corpuscular Hemoglobin 34.3H, Mean Corpuscular Hemoglobin Concent 35.1, Red Cell Distribution Width 11.0L, Platelet Count 204, Mean Platelet Volume 8.3, Neutrophils (%) (Auto) 58.4, Lymphocytes (%) (Auto) 31.0, Monocytes (%) (Auto) 6.7, Eosinophils (%) (Auto) 2.9, Basophils (%) (Auto ) 1.0, Sodium Level 140, Potassium Level 4.4, Chloride Level 106, Carbon Dioxide Level 26, Anion Gap 8, Blood Urea Nitrogen 12, Creatinine 1.0, Estimat Glomerular Filtration Rate > 60, Glucose Level 73L, Calcium Level 8.7 Height (Feet): 5 Height (Inches): 7.00 Weight (Pounds): 162 Objective GENERAL: Alert, awake, and oriented. LUNGS: Clear. HEART: S1 S2 Regular. ABDOMEN: Benign. EXTREMITIES: No cyanosis. No clubbing. NEUROLOGIC: No changes. EMMA AGUILAR Jun 22, 2017 08:43
[2017-06-22] MEDS: carBAMazepine 200mg tab ORAL SCH ×2 (09:22→20:51)
[2017-06-22] MEDS: Benztropine 1mg tab ORAL SCH ×2 (09:23→18:01)
[2017-06-22] MEDS: Ziprasidone 20mg cap ORAL SCH ×2 (09:23→18:01)
[2017-06-22] MEDS: Heparin 5000 units/ml inj SUBQ SCH ×2 (09:24→20:53)
--- NOTE | 2017-06-22 10:45 | Diagnostic Imaging Report ---
Indication: Altered level of consciousness Technique: Continuous helical CT scanning of the head was performed without intravenous contrast material. Axial and coronal 5 mm sections were generated. Radiation dose was minimized using automated exposure control Dose: Total Dose Length Product - DLP 1403.[address] Dose Index - CTDIvol(s) 70.38 mGy. Comparison: 02/10/2017 Findings: The ventricular system is normal in size and configuration. There is no shift of midline structures. No abnormal extra-axial fluid collections are noted. There is no evidence of intracerebral bleeding. No other abnormal high or low density areas are noted within the brain. There is ethmoid sinus disease again demonstrated. Intact calvarium. Mastoids are clear. The orbits are unremarkable Impression: Negative for acute intracranial bleed or mass effect Sinus disease The CT scanner at [facility] is accredited by the [employer] and the scans are performed using protocols designed to limit radiation exposure to as low as reasonably achievable to attain images of sufficient resolution adequate for diagnostic evaluation. Noncontrast
[2017-06-22 12:00] VITALS: BP 106/69
--- NOTE | 2017-06-22 12:42 | Neurology Progress Note ---
Interim History Interim History ROS Limited/Unobtainable: No Complaints: memory lapses, shaking, Events: witnessed episode of LOC with ni VS Objective Physical Exam Last Vital Signs Date Time Temp Pulse Resp B/P (MAP) Pulse Ox O2 Delivery O2 Flow Rate FiO2 06/22/17 08:00 97.2 75 20 101/57 06/22/17 04:00 95 Nasal Cannula 2.0 Laboratory Tests Test 06/22/17 03:15 White Blood Count 7.2 K/UL (4.8-10.8) Red Blood Count 4.34 M/UL (4.70-6.10) L Hemoglobin 14.9 G/DL (14.2-18.0) Hematocrit 42.5 % (42.0-52.0) Mean Corpuscular Volume 98 FL (80-99) Mean Corpuscular Hemoglobin 34.3 PG (27.0-31.0) H Mean Corpuscular Hemoglobin Concent 35.1 G/DL (32.0-36.0) Red Cell Distribution Width 11.0 % (11.6-14.8) L Platelet Count 204 K/UL (150-450) Mean Platelet Volume 8.3 FL (6.5-10.1) Neutrophils (%) (Auto) 58.4 % (45.0-75.0) Lymphocytes (%) (Auto) 31.0 % (20.0-45.0) Monocytes (%) (Auto) 6.7 % (1.0-10.0) Eosinophils (%) (Auto) 2.9 % (0.0-3.0) Basophils (%) (Auto) 1.0 % (0.0-2.0) Sodium Level 140 MMOL/L (136-145) Potassium Level 4.4 MMOL/L (3.5-5.1) Chloride Level 106 MMOL/L (98-107) Carbon Dioxide Level 26 MMOL/L (21-32) Anion Gap 8 mmol/L (5-15) Blood Urea Nitrogen 12 mg/dL (7-18) Creatinine 1.0 MG/DL (0.55-1.30) Estimat Glomerular Filtration Rate > 60 mL/min (>60) Glucose Level 73 MG/DL (74-106) L Calcium Level 8.7 MG/DL (8.5-10.1) General: well developed, well nourished, no acute distress Head: normocophalic, atraumatic Neck: no rigidity Neurologic Exam Mental Status: awake, alert, oriented x4, normal cognition Speech: normal speech, no dysarthia Language: normal language, no aphasia Cranial Nerve II: fundus normal, visual garcia, no papilledema Cranial Nerves III, IV, : PERRLA, EOMI, pupils Cranial Nerve V: normal facial sensations, temporales function normal, masseters function normal, pterygoids function normal Cranial Nerve VII: no facial asymmetry, normal facial expressions Cranial Nerve VIII: normal hearing, no nystagmus Cranial Nerve IX: normal palate elevation, gag response Cranial Nerve X: no voice hoarseness Cranial Nerve XI: SCM symmetric, trapezii function normal Cranial Nerve XII: tongue midline, no tongue atrophy/fasciculations Motor System: other - doffuse rigidity, choreoatetosis Sensory: normal pinprick Coordination: other Deep Tendon Reflexes: 1+ bicep (L), 1+ bicep (R), 1+ tricep (L), 1+ tricep (R) , 1+ brachioradialis (L), 1+ brachioradialis (R), 1+ knee (L), 1+ knee (R), 1+ ankle (L), 1+ ankle (R) Reflexes: mute plantar (L), mute plantar (R) Impression/Recommendations Problems: (1) chronic seizure disorder r/o pseudoseizures. (2) chronic pain syndrom with drug seeking behavior (3) HTN (hypertension) (4) COPD (chronic obstructive pulmonary disease) (5) extrapyramidal syndrom, drug induced Status: unchanged Recommendations ##[id number] VIDEO--EEG monitoring facility adjust antipsych meds to reduce dyskinesia ABBEY GAN Jun 22, 2017 12:42
--- NOTE | 2017-06-22 12:48 | General Progress Note ---
Assessment/Plan Problem List: (1) UTI (urinary tract infection) ICD Codes: N39.0 - Urinary tract infection, site not specified SNOMED: 98784097 (2) Epilepsia ICD Codes: G40.909 - Epilepsy, unspecified, not intractable, without status epilepticus SNOMED: 08027146 (3) Agitation ICD Codes: R45.1 - Restlessness and agitation SNOMED: 047359983 (4) COPD (chronic obstructive pulmonary disease) ICD Codes: J44.9 - Chronic obstructive pulmonary disease, unspecified SNOMED: 47636542 (5) HTN (hypertension) ICD Codes: I10 - Essential (primary) hypertension SNOMED: 36935885 (6) chronic pain syndrom with drug seeking behavior (7) Psychiatric disorder ICD Codes: F99 - Mental disorder, not otherwise specified SNOMED: 88808423, 816749884 Status: unchanged Assessment/Plan transfer to [facility], ot pt diet abx psyc tx pain control id eval cbc bmp am Subjective Constitutional: Reports: weakness Allergies: Coded Allergies: CHLORPROMAZINE (Verified Allergy, Unknown, 04/20/17) DIVALPROEX SODIUM (Verified Allergy, Unknown, 04/17/17) FISH CONTAINING PRODUCTS (Verified Allergy, Unknown, 06/20/17) All Systems: reviewed and negative except above Subjective sleepy in bed was sl altered this am Objective Last 24 Hour Vital Signs Date Time Temp Pulse Resp B/P (MAP) Pulse Ox O2 Delivery O2 Flow Rate FiO2 06/22/17 08:00 97.2 75 20 101/57 06/22/17 04:00 95 Nasal Cannula 2.0 06/22/17 04:00 98.0 63 21 99/51 95 06/22/17 00:00 96 Nasal Cannula 2.0 06/22/17 00:00 97.5 69 20 101/58 96 06/21/17 20:00 97 Nasal Cannula 2.0 06/21/17 20:00 97.7 79 21 121/67 97 06/21/17 16:42 97.7 72 17 107/57 Nasal Cannula 2.0 Intake and Output 06/21/17 06/22/17 19:00 07:00 Intake Total 960 ml Output Total 700 ml 2100 ml Balance 260 ml -2100 ml Intake Oral 960 ml Output Urine Total 700 ml 2100 ml # Voids 4 Laboratory Tests 06/22/17 03:15: White Blood Count 7.2, Red Blood Count 4.34L, Hemoglobin 14.9, Hematocrit 42.5, Mean Corpuscular Volume 98, Mean Corpuscular Hemoglobin 34.3H, Mean Corpuscular Hemoglobin Concent 35.1, Red Cell Distribution Width 11.0L, Platelet Count 204, Mean Platelet Volume 8.3, Neutrophils (%) (Auto) 58.4, Lymphocytes (%) (Auto) 31.0, Monocytes (%) (Auto) 6.7, Eosinophils (%) (Auto) 2.9, Basophils (%) (Auto ) 1.0, Sodium Level 140, Potassium Level 4.4, Chloride Level 106, Carbon Dioxide Level 26, Anion Gap 8, Blood Urea Nitrogen 12, Creatinine 1.0, Estimat Glomerular Filtration Rate > 60, Glucose Level 73L, Calcium Level 8.7 Height (Feet): 5 Height (Inches): 7.00 Weight (Pounds): 162 General Appearance: lethargic EENT: normal ENT inspection Neck: normal alignment Cardiovascular: normal peripheral pulses, normal rate, regular rhythm Respiratory/Chest: chest wall non-tender, lungs clear, normal breath sounds Abdomen: normal bowel sounds, non tender, soft Extremities: normal inspection Edema: no edema noted Arm (L), no edema noted Arm (R), no edema noted Leg (L), no edema noted Leg (R), no edema noted Pedal (L), no edema noted Pedal (R), no edema noted Generalized Neurologic: motor weakness Skin: normal pigmentation, warm/dry JUAN FROST Jun 22, 2017 12:48
[2017-06-22] MEDS ORDERED: Mylanta II UD 30ml ORAL PRN (14:30)
[2017-06-22] MEDS ORDERED: Morphine Sulfate 4mg/ml Inj IVP PRN (15:00)
--- NOTE | 2017-06-22 15:00 | Progress Note ---
DATE: 06/22/2017 SUBJECTIVE: The patient is a 42-year-old male patient, admitted to the hospital with agitation and mood lability. He has got poor cognition. Also has agitation and irritability. MENTAL STATUS EXAMINATION: This is a 42-year-old male patient with psychomotor agitation. Mood is irritable and agitated. Affect guarded and restricted. Thought process, disorganized. Thought content, auditory hallucinations, paranoid delusions. Insight and judgment is poor. Denies any suicidal or homicidal thoughts. DIAGNOSIS: Schizoaffective bipolar type. PLAN: Treat him with Seroquel 200 mg three times a day, Geodon 20 mg twice a day, Tegretol 200 mg three times a day, and Lamictal 50 mg twice a day. Encourage him to interact appropriately with staff and other patients. Supportive therapy 15 to 20 minutes provided. Chart reviewed. Discussed with staff. The patient seen and assessed in his room. Wing Cervantes M.D. DR: PABLO JOB#: [id number] CC:
[2017-06-22] MEDS: Morphine Sulfate 4mg/ml Inj IVP PRN (15:31)
[2017-06-22 16:00] VITALS: BP 100/62
[2017-06-22] MEDS ORDERED: LORazepam Inj 2mg/ml 1ml IV PRN (16:15)
[2017-06-22 20:00] VITALS: BP 118/63
--- NOTE | 2017-06-22 22:14 | Pulmonology Progress Note ---
Assessment/Plan Problems: (1) COPD (chronic obstructive pulmonary disease) (2) Agitation (3) Priapism (4) HTN (hypertension) (5) Psychiatric disorder Assessment/Plan improving respiratory treatment IV fluids Urology to see psych evaluation monitor BP Subjective ROS Limited/Unobtainable: No Constitutional: Reports: no symptoms HEENT: Repors: no symptoms Respiratory: Reports: no symptoms Allergies: Coded Allergies: CHLORPROMAZINE (Verified Allergy, Unknown, 04/20/17) DIVALPROEX SODIUM (Verified Allergy, Unknown, 04/17/17) FISH CONTAINING PRODUCTS (Verified Allergy, Unknown, 06/20/17) Objective Last 24 Hour Vital Signs Date Time Temp Pulse Resp B/P (MAP) Pulse Ox O2 Delivery O2 Flow Rate FiO2 06/22/17 20:00 68 06/22/17 20:00 98.2 69 20 118/63 96 Nasal Cannula 2.0 06/22/17 16:00 79 06/22/17 16:00 98.2 74 19 100/62 95 Nasal Cannula 2.0 06/22/17 12:00 97.9 76 20 106/69 98 Nasal Cannula 2.0 06/22/17 08:00 97.2 75 20 101/57 06/22/17 04:00 95 Nasal Cannula 2.0 06/22/17 04:00 98.0 63 21 99/51 95 06/22/17 00:00 96 Nasal Cannula 2.0 06/22/17 00:00 97.5 69 20 101/58 96 Intake and Output 06/21/17 06/22/17 19:00 07:00 Intake Total 960 ml Output Total 700 ml 2100 ml Balance 260 ml -2100 ml Intake Oral 960 ml Output Urine Total 700 ml 2100 ml # Voids 4 HEENT: normocephalic, atraumatic Respiratory/Chest: chest wall non-tender, lungs clear Cardiovascular: normal peripheral pulses, normal rate Abdomen: normal bowel sounds, no organomegaly Extremities: no cyanosis Skin: no lesions Neurologic/Psychiatric: third helper II-XII grossly normal, no motor/sensory deficits Microbiology Date/Time Source Procedure Growth Status 06/20/17 09:30 Nasal Nares MRSA Culture - Final NO METHICILLIN RESISTANT STAPH AUREUS... Complete 06/20/17 09:30 Rectum VRE Culture - Final NO VANCOMYCIN RESISTANT ENTEROCOCCUS ... Complete Laboratory Tests 06/22/17 03:15: White Blood Count 7.2, Red Blood Count 4.34L, Hemoglobin 14.9, Hematocrit 42.5, Mean Corpuscular Volume 98, Mean Corpuscular Hemoglobin 34.3H, Mean Corpuscular Hemoglobin Concent 35.1, Red Cell Distribution Width 11.0L, Platelet Count 204, Mean Platelet Volume 8.3, Neutrophils (%) (Auto) 58.4, Lymphocytes (%) (Auto) 31.0, Monocytes (%) (Auto) 6.7, Eosinophils (%) (Auto) 2.9, Basophils (%) (Auto ) 1.0, Sodium Level 140, Potassium Level 4.4, Chloride Level 106, Carbon Dioxide Level 26, Anion Gap 8, Blood Urea Nitrogen 12, Creatinine 1.0, Estimat Glomerular Filtration Rate > 60, Glucose Level 73L, Calcium Level 8.7 Current Medications Medications (Trade) Dose Ordered Sig/Sharon Route PRN Reason Start Time Stop Time Status Last Admin Dose Admin Acetaminophen (Tylenol) 650 mg Q4H PRN ORAL fever>100.5 06/22/17 14:30 07/20/17 14:29 Al Hydroxide/Mg Hydroxide (Mylanta II) 30 ml Q6H PRN ORAL dyspepsia 06/22/17 14:30 07/20/17 14:29 Benztropine Mesylate (Cogentin) 2 mg BID ORAL 06/22/17 18:00 07/20/17 17:59 06/22/17 18:01 Carbamazepine (TEGretol) 200 mg Q12HR ORAL 06/22/17 21:00 07/20/17 20:59 06/22/17 20:51 Dextrose (Dextrose 50%) STAT PRN IV Hypoglycemia 06/23/17 14:30 07/20/17 14:29 Escitalopram Oxalate (Lexapro) 10 mg DAILY ORAL 06/23/17 09:00 07/21/17 08:59 Gabapentin (Neurontin) 300 mg EVERY 8 HOURS ORAL 06/22/17 15:00 07/20/17 14:59 06/22/17 15:35 Heparin Sodium (Porcine) (Heparin 5000 units/ml) 5,000 units EVERY 12 HOURS SUBQ 06/22/17 21:00 07/20/17 10:59 06/22/17 20:53 Lamotrigine (LaMICtal) 100 mg Q12HR ORAL 06/22/17 21:00 07/20/17 20:59 06/22/17 20:51 Levetiracetam (Keppra) 1,000 mg EVERY 12 HOURS ORAL 06/22/17 21:00 07/20/17 20:59 06/22/17 20:51 Lidocaine (Lidoderm 5% PATCH) 1 patch DAILY TDERMAL 06/23/17 09:00 07/21/17 11:59 Lorazepam (Ativan 2mg/ml 1ml) 0.5 mg Q4H PRN IV For Anxiety 06/22/17 16:15 06/27/17 08:14 Morphine Sulfate (Morphine Sulfate) 2 mg Q4H PRN IVP Moderate Pain (Pain Scale 4-6) 06/22/17 15:00 06/27/17 14:59 Morphine Sulfate (Morphine Sulfate) 4 mg Q4H PRN IVP Severe Pain (Pain Scale 7-10) 06/22/17 15:00 06/27/17 14:59 06/22/17 15:31 Nicotine (Nicoderm) 1 patch Q24H TDERMAL 06/22/17 15:00 07/20/17 14:59 06/22/17 14:42 Ondansetron HCl (Zofran) 4 mg Q6H PRN IVP Nausea & Vomiting 06/22/17 15:00 07/20/17 14:59 Polyethylene Glycol (Miralax) 17 gm HSPRN PRN ORAL Constipation 06/23/17 21:00 07/20/17 20:59 Quetiapine Fumarate (SEROquel) 300 mg BEDTIME ORAL 06/22/17 21:00 07/20/17 17:59 06/22/17 20:51 Ziprasidone (Geodon) 20 mg TWICE A DAY ORAL 06/22/17 18:00 07/20/17 17:59 06/22/17 18:01 Zolpidem Tartrate (Ambien) 5 mg HSPRN PRN ORAL Insomnia 06/23/17 21:00 06/27/17 20:59 JJ YUNG Jun 22, 2017 22:13
[2017-06-22] MEDS ORDERED: Miralax 17gm pkt ORAL PRN (22:30)
--- NOTE | 2017-06-22 22:45 | Progress Note ---
DATE: 06/21/2017 SUBJECTIVE: The patient is doing well. No behavioral issues. Calm and cooperative, was in bed resting, having no behavior issues, however, has depressed mood, anhedonia, worthlessness, and hopelessness. MENTAL STATUS EXAMINATION: The patient is alert and oriented times self, place, situation at times. Mood is depressed. Affect is full range, congruent with mood and appropriate. Thought process is linear and goal oriented. Thought content, no suicidal or homicidal ideation. Insight and judgment is fair. ASSESSMENT: Schizoaffective disorder, bipolar type. PLAN: 1. We will continue current medication. 2. Provide the patient with supportive therapy and reality orientation. Monica Herbert M.D. DR: TAMIR JOB#: [id number] CC:
--- NOTE | 2017-06-22 23:15 | Progress Note ---
DATE: 06/22/2017 SUBJECTIVE: The patient was found unresponsive. Rapid Response was called. The patient was transferred to second floor. The patient was asleep, calm, in no acute distress. MENTAL STATUS EXAMINATION: The patient sleep, arousable, has psychomotor agitation. Mood is neutral. Affect is flat, congruent with mood. Thought process, there is a paucity of thought content. Thought content, no suicidal or homicidal ideation. Cognition is intact. Insight and judgment is fair. ASSESSMENT: 1. Schizoaffective disorder. 2. Seizure disorder. 3. Chronic pain syndrome. 4. Hypertension. 5. Chronic obstructive pulmonary disease. PLAN: We will continue current medications. Monica Herbert M.D. DR: TAMIR JOB#: [id number] CC:
[2017-06-23] VITALS: BP 115/68
[2017-06-23 04:00] VITALS: BP 108/65
[2017-06-23] MEDS: Morphine Sulfate 4mg/ml Inj IVP PRN ×3 (06:38→22:36)
[2017-06-23 08:00] VITALS: BP 128/70
--- NOTE | 2017-06-23 08:49 | General Progress Note ---
Assessment/Plan Assessment/Plan (1) Epilepsy (2) Neuropathic pain (3) Chronic pain syndrome (4) Right knee pain Pt will be continued on the Morphine and Lidoderm patch D/w Dr. Dye and he concurred. Subjective Date patient seen: Jun 23, 2017 Time patient seen: 07:15 - am Allergies: Coded Allergies: CHLORPROMAZINE (Verified Allergy, Unknown, 04/20/17) DIVALPROEX SODIUM (Verified Allergy, Unknown, 04/17/17) FISH CONTAINING PRODUCTS (Verified Allergy, Unknown, 06/20/17) Subjective REVIEW OF SYSTEMS: Denies rash, fever, chills, sweating, dizziness, drowsiness, blurred vision, sore throat, or change in his weight. No shortness of breath. No nausea, vomiting, diarrhea, or blood in stool or urine. No bowel or bladder incontinence. No dysuria. He is complaining of generalized body pain. SUBJECTIVE: Patient reports that his pain has been at a moderate level and tolerated on the Morphine. He has no new complaints.. Objective Last 24 Hour Vital Signs Date Time Temp Pulse Resp B/P (MAP) Pulse Ox O2 Delivery O2 Flow Rate FiO2 06/23/17 08:00 97.5 83 20 128/70 97 Nasal Cannula 2.0 06/23/17 04:00 97.9 71 20 108/65 95 Nasal Cannula 2.0 06/23/17 04:00 70 06/23/17 00:00 78 06/23/17 00:00 99.1 72 20 115/68 95 Nasal Cannula 2.0 06/22/17 20:00 68 06/22/17 20:00 98.2 69 20 118/63 96 Nasal Cannula 2.0 06/22/17 16:00 79 06/22/17 16:00 98.2 74 19 100/62 95 Nasal Cannula 2.0 06/22/17 12:00 97.9 76 20 106/69 98 Nasal Cannula 2.0 Intake and Output 06/22/17 06/23/17 19:00 07:00 Intake Total 420 ml 240 ml Output Total 1000 ml Balance 420 ml -760 ml Intake Oral 420 ml 240 ml Output Urine Total 1000 ml Laboratory Tests 06/23/17 07:15: White Blood Count [Pending], Red Blood Count [Pending], Hemoglobin [Pending], Hematocrit [Pending], Mean Corpuscular Volume [Pending], Mean Corpuscular Hemoglobin [Pending], Mean Corpuscular Hemoglobin Concent [Pending], Red Cell Distribution Width [Pending], Platelet Count [Pending], Mean Platelet Volume [ Pending], Neutrophils (%) (Auto) [Pending], Lymphocytes (%) (Auto) [Pending], Monocytes (%) (Auto) [Pending], Eosinophils (%) (Auto) [Pending], Basophils (%) (Auto) [Pending], Sodium Level [Pending], Potassium Level [Pending], Chloride Level [Pending], Carbon Dioxide Level [Pending], Blood Urea Nitrogen [Pending], Creatinine [Pending], Estimat Glomerular Filtration Rate [Pending], Glucose Level [Pending], Calcium Level [Pending] Height (Feet): 5 Height (Inches): 7.00 Weight (Pounds): 162 Objective GENERAL: Alert, awake, and oriented. LUNGS: Clear. HEART: S1 S2 Regular. ABDOMEN: Benign. EXTREMITIES: No cyanosis. No clubbing. NEUROLOGIC: No changes. EMMA AGUILAR Jun 23, 2017 08:49
[2017-06-23 08:52] LABS: HEMATOCRIT 42.7 % (42.0-52.0); HEMOGLOBIN 15.2 G/DL (14.2-18.0); LYMPHOCYTES % (AUTO) 20.4 % (20.0-45.0); MEAN CORPUSCULAR VOLUME 97 FL (80-99); MONOCYTES % (AUTO) 7.7 % (1.0-10.0); NEUTROPHILS % (AUTO) 67.9 % (45.0-75.0); PLATELET COUNT 221 K/UL (150-450); RED BLOOD COUNT 4.41 M/UL (4.70-6.10); RED CELL DISTRIBUTION WIDTH 10.7 % (11.6-14.8)
[2017-06-23 09:04] LABS: ANION GAP 7 mmol/L (5-15); BLOOD UREA NITROGEN 14 mg/dL (7-18); CARBON DIOXIDE 27 MMOL/L (21-32); CHLORIDE 105 MMOL/L (98-107); CREATININE 0.9 MG/DL (0.55-1.30); POTASSIUM 4.1 MMOL/L (3.5-5.1); SODIUM 139 MMOL/L (136-145)
[2017-06-23] MEDS: carBAMazepine 200mg tab ORAL SCH ×2 (09:54→21:51)
[2017-06-23] MEDS: Benztropine 1mg tab ORAL SCH (09:54)
[2017-06-23] MEDS: Ziprasidone 20mg cap ORAL SCH (09:55)
[2017-06-23] MEDS: Heparin 5000 units/ml inj SUBQ SCH ×2 (10:00→21:49)
--- NOTE | 2017-06-23 11:16 | Neurology Progress Note ---
Interim History Interim History ROS Limited/Unobtainable: No Complaints: memory lapses, shaking, Events: bedridden Objective Physical Exam Last Vital Signs Date Time Temp Pulse Resp B/P (MAP) Pulse Ox O2 Delivery O2 Flow Rate FiO2 06/23/17 08:00 97.5 83 20 128/70 97 Nasal Cannula 2.0 Laboratory Tests Test 06/23/17 07:15 White Blood Count 7.0 K/UL (4.8-10.8) Red Blood Count 4.41 M/UL (4.70-6.10) L Hemoglobin 15.2 G/DL (14.2-18.0) Hematocrit 42.7 % (42.0-52.0) Mean Corpuscular Volume 97 FL (80-99) Mean Corpuscular Hemoglobin 34.5 PG (27.0-31.0) H Mean Corpuscular Hemoglobin Concent 35.5 G/DL (32.0-36.0) Red Cell Distribution Width 10.7 % (11.6-14.8) L Platelet Count 221 K/UL (150-450) Mean Platelet Volume 8.7 FL (6.5-10.1) Neutrophils (%) (Auto) 67.9 % (45.0-75.0) Lymphocytes (%) (Auto) 20.4 % (20.0-45.0) Monocytes (%) (Auto) 7.7 % (1.0-10.0) Eosinophils (%) (Auto) 3.0 % (0.0-3.0) Basophils (%) (Auto) 1.0 % (0.0-2.0) Sodium Level 139 MMOL/L (136-145) Potassium Level 4.1 MMOL/L (3.5-5.1) Chloride Level 105 MMOL/L (98-107) Carbon Dioxide Level 27 MMOL/L (21-32) Anion Gap 7 mmol/L (5-15) Blood Urea Nitrogen 14 mg/dL (7-18) Creatinine 0.9 MG/DL (0.55-1.30) Estimat Glomerular Filtration Rate > 60 mL/min (>60) Glucose Level 89 MG/DL (74-106) Calcium Level 9.0 MG/DL (8.5-10.1) General: well developed, well nourished, no acute distress Head: normocophalic, atraumatic Neck: no rigidity Neurologic Exam Mental Status: awake, alert, oriented x4, normal cognition Speech: normal speech, no dysarthia Language: normal language, no aphasia Cranial Nerve II: fundus normal, visual garcia, no papilledema Cranial Nerves III, IV, : PERRLA, EOMI, pupils Cranial Nerve V: normal facial sensations, temporales function normal, masseters function normal, pterygoids function normal Cranial Nerve VII: no facial asymmetry, normal facial expressions Cranial Nerve VIII: normal hearing, no nystagmus Cranial Nerve IX: normal palate elevation, gag response Cranial Nerve X: no voice hoarseness Cranial Nerve XI: SCM symmetric, trapezii function normal Cranial Nerve XII: tongue midline, no tongue atrophy/fasciculations Motor System: other - doffuse rigidity, choreoatetosis Sensory: normal pinprick Coordination: other Deep Tendon Reflexes: 1+ bicep (L), 1+ bicep (R), 1+ tricep (L), 1+ tricep (R) , 1+ brachioradialis (L), 1+ brachioradialis (R), 1+ knee (L), 1+ knee (R), 1+ ankle (L), 1+ ankle (R) Reflexes: mute plantar (L), mute plantar (R) Impression/Recommendations Problems: (1) chronic seizure disorder r/o pseudoseizures. (2) chronic pain syndrom with drug seeking behavior (3) HTN (hypertension) (4) COPD (chronic obstructive pulmonary disease) (5) extrapyramidal syndrom, drug induced Status: unchanged Recommendations ##[id number] VIDEO--EEG monitoring facility adjust antipsych meds to reduce dyskinesia pt/ot up in chair ABBEY AGN Jun 23, 2017 11:16
[2017-06-23 12:00] VITALS: BP 115/62
--- NOTE | 2017-06-23 12:30 | Pulmonology Progress Note ---
Assessment/Plan Problems: (1) COPD (chronic obstructive pulmonary disease) (2) Priapism (3) Agitation (4) HTN (hypertension) (5) Psychiatric disorder Assessment/Plan VS table improving respiratory treatment IV fluids Urology to see psych evaluation monitor BP Urinated today back to med/surg Subjective ROS Limited/Unobtainable: No Interval Events: was able to void Constitutional: Reports: no symptoms HEENT: Repors: no symptoms Respiratory: Reports: no symptoms Allergies: Coded Allergies: CHLORPROMAZINE (Verified Allergy, Unknown, 04/20/17) DIVALPROEX SODIUM (Verified Allergy, Unknown, 04/17/17) FISH CONTAINING PRODUCTS (Verified Allergy, Unknown, 06/20/17) Objective Last 24 Hour Vital Signs Date Time Temp Pulse Resp B/P (MAP) Pulse Ox O2 Delivery O2 Flow Rate FiO2 06/23/17 12:00 97.7 69 20 115/62 99 Nasal Cannula 2.0 06/23/17 08:00 97.5 83 20 128/70 97 Nasal Cannula 2.0 06/23/17 08:00 74 06/23/17 04:00 97.9 71 20 108/65 95 Nasal Cannula 2.0 06/23/17 04:00 70 06/23/17 00:00 78 06/23/17 00:00 99.1 72 20 115/68 95 Nasal Cannula 2.0 06/22/17 20:00 68 06/22/17 20:00 98.2 69 20 118/63 96 Nasal Cannula 2.0 06/22/17 16:00 79 06/22/17 16:00 98.2 74 19 100/62 95 Nasal Cannula 2.0 Intake and Output 06/22/17 06/23/17 19:00 07:00 Intake Total 420 ml 240 ml Output Total 1000 ml Balance 420 ml -760 ml Intake Oral 420 ml 240 ml Output Urine Total 1000 ml General Appearance: WD/WN HEENT: normocephalic, atraumatic Respiratory/Chest: chest wall non-tender, lungs clear Cardiovascular: normal peripheral pulses, normal rate Abdomen: normal bowel sounds, soft, non tender Genitourinary: normal external genitalia Extremities: no cyanosis Skin: no rash 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 Lymphatic: no neck adenopathy Laboratory Tests 06/23/17 07:15: White Blood Count 7.0, Red Blood Count 4.41L, Hemoglobin 15.2, Hematocrit 42.7, Mean Corpuscular Volume 97, Mean Corpuscular Hemoglobin 34.5H, Mean Corpuscular Hemoglobin Concent 35.5, Red Cell Distribution Width 10.7L, Platelet Count 221, Mean Platelet Volume 8.7, Neutrophils (%) (Auto) 67.9, Lymphocytes (%) (Auto) 20.4, Monocytes (%) (Auto) 7.7, Eosinophils (%) (Auto) 3.0, Basophils (%) (Auto ) 1.0, Sodium Level 139, Potassium Level 4.1, Chloride Level 105, Carbon Dioxide Level 27, Anion Gap 7, Blood Urea Nitrogen 14, Creatinine 0.9, Estimat Glomerular Filtration Rate > 60, Glucose Level 89, Calcium Level 9.0 Current Medications Medications (Trade) Dose Ordered Sig/Sharon Route PRN Reason Start Time Stop Time Status Last Admin Dose Admin Acetaminophen (Tylenol) 650 mg Q4H PRN ORAL fever>100.5 06/22/17 14:30 07/20/17 14:29 Al Hydroxide/Mg Hydroxide (Mylanta II) 30 ml Q6H PRN ORAL dyspepsia 06/22/17 14:30 07/20/17 14:29 Benztropine Mesylate (Cogentin) 2 mg BID ORAL 06/22/17 18:00 07/20/17 17:59 06/23/17 09:54 Carbamazepine (TEGretol) 200 mg Q12HR ORAL 06/22/17 21:00 07/20/17 20:59 06/23/17 09:54 Dextrose (Dextrose 50%) STAT PRN IV Hypoglycemia 06/23/17 14:30 07/20/17 14:29 Escitalopram Oxalate (Lexapro) 10 mg DAILY ORAL 06/23/17 09:00 07/21/17 08:59 06/23/17 09:54 Gabapentin (Neurontin) 300 mg EVERY 8 HOURS ORAL 06/22/17 15:00 07/20/17 14:59 06/23/17 06:19 Heparin Sodium (Porcine) (Heparin 5000 units/ml) 5,000 units EVERY 12 HOURS SUBQ 06/22/17 21:00 07/20/17 10:59 06/23/17 10:00 Lamotrigine (LaMICtal) 100 mg Q12HR ORAL 06/22/17 21:00 07/20/17 20:59 06/23/17 09:54 Levetiracetam (Keppra) 1,000 mg EVERY 12 HOURS ORAL 06/22/17 21:00 07/20/17 20:59 06/23/17 09:53 Lidocaine (Lidoderm 5% PATCH) 1 patch DAILY TDERMAL 06/23/17 09:00 07/21/17 11:59 06/23/17 09:56 Lorazepam (Ativan 2mg/ml 1ml) 0.5 mg Q4H PRN IV For Anxiety 06/22/17 16:15 06/27/17 08:14 06/23/17 00:01 Morphine Sulfate (Morphine Sulfate) 2 mg Q4H PRN IVP Moderate Pain (Pain Scale 4-6) 06/22/17 15:00 06/27/17 14:59 Morphine Sulfate (Morphine Sulfate) 4 mg Q4H PRN IVP Severe Pain (Pain Scale 7-10) 06/22/17 15:00 06/27/17 14:59 06/23/17 06:38 Nicotine (Nicoderm) 1 patch Q24H TDERMAL 06/22/17 15:00 07/20/17 14:59 06/22/17 14:42 Ondansetron HCl (Zofran) 4 mg Q6H PRN IVP Nausea & Vomiting 06/22/17 15:00 07/20/17 14:59 Polyethylene Glycol (Miralax) 17 gm HSPRN PRN ORAL Constipation 06/22/17 22:30 07/22/17 22:29 06/22/17 22:23 Quetiapine Fumarate (SEROquel) 300 mg BEDTIME ORAL 06/22/17 21:00 07/20/17 17:59 06/22/17 20:51 Ziprasidone (Geodon) 20 mg TWICE A DAY ORAL 06/22/17 18:00 07/20/17 17:59 06/23/17 09:55 Zolpidem Tartrate (Ambien) 5 mg HSPRN PRN ORAL Insomnia 06/23/17 21:00 06/27/17 20:59 JJ YUNG Jun 23, 2017 12:30
--- NOTE | 2017-06-23 13:04 | General Progress Note ---
Assessment/Plan Problem List: (1) UTI (urinary tract infection) ICD Codes: N39.0 - Urinary tract infection, site not specified SNOMED: 62118822 (2) Epilepsia ICD Codes: G40.909 - Epilepsy, unspecified, not intractable, without status epilepticus SNOMED: 92993147 (3) Agitation ICD Codes: R45.1 - Restlessness and agitation SNOMED: 966438305 (4) COPD (chronic obstructive pulmonary disease) ICD Codes: J44.9 - Chronic obstructive pulmonary disease, unspecified SNOMED: 08924231 (5) HTN (hypertension) ICD Codes: I10 - Essential (primary) hypertension SNOMED: 79321186 (6) chronic pain syndrom with drug seeking behavior (7) Psychiatric disorder ICD Codes: F99 - Mental disorder, not otherwise specified SNOMED: 52034026, 682719790 Status: stable, progressing, ambulating well Assessment/Plan transfer to [facility], ot pt diet abx psyc tx pain control id eval cbc bmp am dc plan snf Subjective Constitutional: Reports: weakness Allergies: Coded Allergies: CHLORPROMAZINE (Verified Allergy, Unknown, 04/20/17) DIVALPROEX SODIUM (Verified Allergy, Unknown, 04/17/17) FISH CONTAINING PRODUCTS (Verified Allergy, Unknown, 06/20/17) All Systems: reviewed and negative except above Subjective sleepy in bed calm Objective Last 24 Hour Vital Signs Date Time Temp Pulse Resp B/P (MAP) Pulse Ox O2 Delivery O2 Flow Rate FiO2 06/23/17 12:00 97.7 69 20 115/62 99 Nasal Cannula 2.0 06/23/17 08:00 97.5 83 20 128/70 97 Nasal Cannula 2.0 06/23/17 08:00 74 06/23/17 04:00 97.9 71 20 108/65 95 Nasal Cannula 2.0 06/23/17 04:00 70 06/23/17 00:00 78 06/23/17 00:00 99.1 72 20 115/68 95 Nasal Cannula 2.0 06/22/17 20:00 68 06/22/17 20:00 98.2 69 20 118/63 96 Nasal Cannula 2.0 06/22/17 16:00 79 06/22/17 16:00 98.2 74 19 100/62 95 Nasal Cannula 2.0 Intake and Output 06/22/17 06/23/17 19:00 07:00 Intake Total 420 ml 240 ml Output Total 1000 ml Balance 420 ml -760 ml Intake Oral 420 ml 240 ml Output Urine Total 1000 ml Laboratory Tests 06/23/17 07:15: White Blood Count 7.0, Red Blood Count 4.41L, Hemoglobin 15.2, Hematocrit 42.7, Mean Corpuscular Volume 97, Mean Corpuscular Hemoglobin 34.5H, Mean Corpuscular Hemoglobin Concent 35.5, Red Cell Distribution Width 10.7L, Platelet Count 221, Mean Platelet Volume 8.7, Neutrophils (%) (Auto) 67.9, Lymphocytes (%) (Auto) 20.4, Monocytes (%) (Auto) 7.7, Eosinophils (%) (Auto) 3.0, Basophils (%) (Auto ) 1.0, Sodium Level 139, Potassium Level 4.1, Chloride Level 105, Carbon Dioxide Level 27, Anion Gap 7, Blood Urea Nitrogen 14, Creatinine 0.9, Estimat Glomerular Filtration Rate > 60, Glucose Level 89, Calcium Level 9.0 Height (Feet): 5 Height (Inches): 7.00 Weight (Pounds): 162 General Appearance: alert EENT: normal ENT inspection Neck: normal alignment Cardiovascular: normal peripheral pulses, normal rate, regular rhythm Respiratory/Chest: chest wall non-tender, lungs clear, normal breath sounds Abdomen: normal bowel sounds, non tender, soft Extremities: normal inspection Edema: no edema noted Arm (L), no edema noted Arm (R), no edema noted Leg (L), no edema noted Leg (R), no edema noted Pedal (L), no edema noted Pedal (R), no edema noted Generalized Neurologic: responsive, motor weakness Skin: normal pigmentation, warm/dry JUAN FROST Jun 23, 2017 13:04
[2017-06-23 16:02] VITALS: BP 126/67
--- NOTE | 2017-06-23 16:15 | Progress Note ---
DATE: 06/23/2017 SUBJECTIVE: The patient is a 42-year-old male patient with agitation and mood lability. This patient is actually admitted for chronic pain, but he also has a lot of agitation and mood lability and altered mental status secondary to stress of his medical illnesses. That is why, his attending has requested daily psychiatric consultation. MENTAL STATUS EXAMINATION: This is a 42-year-old male with psychomotor agitation. Mood is irritable and agitated. Affect is guarded and restricted. Thought process is disorganized and illogical. Denies any current suicidal or homicidal thoughts. Insight and judgment is poor. DIAGNOSIS: Schizoaffective, bipolar type. PLAN: My plan for this patient is to treat him with Seroquel 200 mg at bedtime, Geodon 20 mg twice a day, and Lamictal 100 mg q.12 h., and then provide him with supportive therapy. Encourage him to interact appropriately with staff and other patients, and he will continue to be followed by Psychiatry throughout hospital course. Chart was reviewed and discussed with staff. Seen and assessed at bedside. A 15 to 20 minutes of supportive therapy provided. Wing Cervantes M.D. DR: PABLO JOB#: [id number] CC:
[2017-06-23] MEDS: Tamsulosin 0.4mg cap ORAL SCH (17:18)
[2017-06-23] MEDS ORDERED: Benztropine 1mg tab ORAL SCH (18:00)
[2017-06-23] MEDS ORDERED: Ziprasidone 20mg cap ORAL SCH (18:00)
[2017-06-23] MEDS: LORazepam Inj 2mg/ml 1ml IV PRN (18:14)
[2017-06-23] MEDS ORDERED: Morphine Sulfate 4mg/ml Inj IVP PRN (19:00)
[2017-06-23 20:00] VITALS: BP 121/68
[2017-06-23] MEDS ORDERED: Mylanta II UD 30ml ORAL PRN (20:30)
[2017-06-23] MEDS ORDERED: Zolpidem 5mg tab ORAL PRN (21:00)
[2017-06-23] MEDS ORDERED: Miralax 17gm pkt ORAL PRN ×2 (21:00→22:30)
[2017-06-23] MEDS: Zolpidem 5mg tab ORAL PRN (21:51)
--- NOTE | 2017-06-23 22:00 | Consultation ---
DATE OF CONSULTATION: 06/21/2017 PSYCHOTHERAPY CONSULTATION PROGRESS NOTE CONSULTING PHYSICIAN: Abdi Medley M.D. TREATING ATTENDING PHYSICIAN: Wing Cervantes M.D. HISTORY OF PRESENT ILLNESS: The patient is a 42-year-old male patient. This patient has a history of mental illness. The patient has a history of schizoaffective disorder, bipolar type primarily. He is being treated in the hospital due to continued agitation and he was very labile with his mood and affect. He is stating that he has been having seizures according to his report. The patient is referred for psychotherapeutic services for agitation and anxiety. This clinician assessed this patient. The patient continues to be very anxious, irritable, attention seeking, weak. No suicidal or homicidal thoughts of ideation. Denies any auditory or visual hallucinations at this time. The patient is very paranoid of others including . PAST MEDICAL HISTORY: Includes history of COPD, epileptic crisis, hypertension, and chronic pain. ALLERGIES: The patient is allergic to divalproex and chlorpromazine. SUBSTANCE ABUSE HISTORY: The patient has a history of smoking cigarettes, history of drinking alcohol, and using illicit substances such as marijuana. MENTAL STATUS EXAMINATION: The patient is alert and oriented to person, place, and time. Mood is irritable. Affect is labile. Thought process is disorganized. Thought content is delusional. He has poor attention and concentration. Poor insight, judgment, and impulse control. DIAGNOSIS: Schizoaffective disorder, bipolar type. PLAN: This clinician is working on impulsivity and poor frustration tolerance. This clinician is working on application of coping skills. Providing him with supportive psychotherapy, redirecting his paranoia and encouraging him to articulate his needs utilizing positive communication skills, working on impulse control strategies. Continue with behavioral management. This clinician has reviewed the patient's chart and discussed the treatment with treatment team. Abdi Medley PsyD. DR: Mamta JOB#: [id number] CC:
[2017-06-24] VITALS: BP 136/89
[2017-06-24] MEDS: LORazepam Inj 2mg/ml 1ml IV PRN ×2 (01:54→13:23)
[2017-06-24 04:00] VITALS: BP 119/69
--- NOTE | 2017-06-24 06:00 | Progress Note ---
DATE: 06/23/2017 SUBJECTIVE: The patient is presenting with anxiety, depressed mood, and anhedonia. The patient is in bed, calm. No agitation, however, has anxiety. The patient also has tardive dyskinesia and has been taking medication like Cogentin, has not been helping. The patient requested trazodone. The patient was consulted in regard to trazodone side effects, it has been giving him priapism. I discussed with him and told him that he was started on Citalopram 10 mg. MENTAL STATUS EXAMINATION: The patient is alert and oriented times self, place, and situation he is in. Mood is depressed. Affect is constricted, congruent with mood. Thought process is linear. Thought content, no suicidal or homicidal ideations. ASSESSMENT: 1. Bipolar disorder by history. 2. Depression. PLAN: 1. We will decrease the Seroquel from 300 to 200. 2. Continue the patient on Lexapro. 3. the Geodon as the patient is having tardive dyskinesia. 4. We will continue the Ativan. 5. We will decrease the Cogentin to 2 mg at bedtime. 6. Continue to follow. Monica Herbert M.D. DR: NANCY JOB#: [id number] CC:
[2017-06-24 08:15] VITALS: BP 103/65
[2017-06-24] MEDS: Tamsulosin 0.4mg cap ORAL SCH (09:34)
[2017-06-24] MEDS: carBAMazepine 200mg tab ORAL SCH ×2 (09:34→21:40)
[2017-06-24] MEDS: Heparin 5000 units/ml inj SUBQ SCH ×2 (09:38→21:46)
[2017-06-24] MEDS: Morphine Sulfate 4mg/ml Inj IVP PRN ×3 (09:39→21:40)
--- NOTE | 2017-06-24 10:45 | Progress Note ---
DATE: 06/24/2017 SUBJECTIVE: This is a 42-year-old male patient. He has altered mental status and also a lot of other problems such as hypoxia and hip pain, admitted to [place] secondary to intractable pain, seizures, and altered mental status with confusion. He did have a lot of mood lability, agitation, irritability, and intermittent suicidality, but no plan. He is able to contract for safety in the hospital, but because of his altered mental status as well as attending has requested daily psychiatric consultation at this time. MENTAL STATUS EXAMINATION: This is a 42-year-old male with psychomotor agitation. Mood is irritable and agitated. Affect is guarded and restricted. Thought process is disorganized and illogical, endorses intermittent suicidal ideations, but no plan. Denies homicidal ideations. Insight and judgment is poor. No auditory hallucinations or paranoia. PLAN: Plan for this patient is to treat him with Neurontin 300 mg 3 times a day, Lexapro 10 mg daily, and Lamictal 100 mg q.12 hours and provide him with supportive therapy and encourage him to interact appropriately with staff and other patients. Chart reviewed and discussed with staff. Seen and assessed at bedside. The patient now continue to be followed by Psychiatry throughout hospital course. Wing Cervantes M.D. DR: PABLO JOB#: [id number] CC:
[2017-06-24 11:22] LABS: BASOPHILS % (AUTO) 1.4 % (0.0-2.0); EOSINOPHILS % (AUTO) 3.3 % (0.0-3.0); HEMATOCRIT 43.9 % (42.0-52.0); HEMOGLOBIN 15.5 G/DL (14.2-18.0); LYMPHOCYTES % (AUTO) 21.4 % (20.0-45.0); MEAN CORPUSCULAR VOLUME 97 FL (80-99); MONOCYTES % (AUTO) 6.2 % (1.0-10.0); NEUTROPHILS % (AUTO) 67.7 % (45.0-75.0); PLATELET COUNT 213 K/UL (150-450); RED BLOOD COUNT 4.53 M/UL (4.70-6.10); RED CELL DISTRIBUTION WIDTH 10.5 % (11.6-14.8); WHITE BLOOD COUNT 5.5 K/UL (4.8-10.8)
[2017-06-24 11:28] LABS: ANION GAP 7 mmol/L (5-15); BLOOD UREA NITROGEN 14 mg/dL (7-18); CALCIUM 9.1 MG/DL (8.5-10.1); CARBON DIOXIDE 30 MMOL/L (21-32); CHLORIDE 101 MMOL/L (98-107); CREATININE 0.9 MG/DL (0.55-1.30); POTASSIUM 4.2 MMOL/L (3.5-5.1); SODIUM 138 MMOL/L (136-145)
[2017-06-24 12:15] VITALS: BP 107/68
--- NOTE | 2017-06-24 12:20 | General Progress Note ---
Assessment/Plan Problem List: (1) UTI (urinary tract infection) ICD Codes: N39.0 - Urinary tract infection, site not specified SNOMED: 45798371 (2) Epilepsia ICD Codes: G40.909 - Epilepsy, unspecified, not intractable, without status epilepticus SNOMED: 52399912 (3) Agitation ICD Codes: R45.1 - Restlessness and agitation SNOMED: 821662676 (4) COPD (chronic obstructive pulmonary disease) ICD Codes: J44.9 - Chronic obstructive pulmonary disease, unspecified SNOMED: 88195119 (5) HTN (hypertension) ICD Codes: I10 - Essential (primary) hypertension SNOMED: 49235885 (6) chronic pain syndrom with drug seeking behavior (7) Psychiatric disorder ICD Codes: F99 - Mental disorder, not otherwise specified SNOMED: 85804928, 141567630 Status: stable, progressing, tolerating diet Assessment/Plan transfer to tele, ot pt diet abx psyc tx pain control dc to snf Subjective Constitutional: Reports: weakness Allergies: Coded Allergies: CHLORPROMAZINE (Verified Allergy, Unknown, 04/20/17) DIVALPROEX SODIUM (Verified Allergy, Unknown, 04/17/17) FISH CONTAINING PRODUCTS (Verified Allergy, Unknown, 06/20/17) All Systems: reviewed and negative except above Subjective sleepy in bed calm Objective Last 24 Hour Vital Signs Date Time Temp Pulse Resp B/P (MAP) Pulse Ox O2 Delivery O2 Flow Rate FiO2 06/24/17 08:15 97.7 82 21 103/65 95 Nasal Cannula 4.0 06/24/17 04:00 98.2 71 21 119/69 96 06/24/17 00:00 98.2 95 21 136/89 98 06/23/17 20:00 98.3 72 20 121/68 96 06/23/17 16:02 97.3 69 20 126/67 95 Intake and Output 06/23/17 06/24/17 19:00 07:00 Intake Total 1030 ml Output Total 1270 ml Balance -240 ml Intake Oral 1030 ml Output Urine Total 1270 ml # Voids 4 4 Laboratory Tests 06/24/17 08:24: White Blood Count 5.5, Red Blood Count 4.53L, Hemoglobin 15.5, Hematocrit 43.9, Mean Corpuscular Volume 97, Mean Corpuscular Hemoglobin 34.2H, Mean Corpuscular Hemoglobin Concent 35.3, Red Cell Distribution Width 10.5L, Platelet Count 213, Mean Platelet Volume 7.2, Neutrophils (%) (Auto) 67.7, Lymphocytes (%) (Auto) 21.4, Monocytes (%) (Auto) 6.2, Eosinophils (%) (Auto) 3.3H, Basophils (%) (Auto ) 1.4, Sodium Level 138, Potassium Level 4.2, Chloride Level 101, Carbon Dioxide Level 30, Anion Gap 7, Blood Urea Nitrogen 14, Creatinine 0.9, Estimat Glomerular Filtration Rate > 60, Glucose Level 116H, Calcium Level 9.1 Height (Feet): 5 Height (Inches): 7.00 Weight (Pounds): 162 General Appearance: alert EENT: normal ENT inspection Neck: normal alignment Cardiovascular: normal peripheral pulses, normal rate, regular rhythm Respiratory/Chest: chest wall non-tender, lungs clear, normal breath sounds Abdomen: normal bowel sounds, non tender, soft Extremities: normal inspection Edema: no edema noted Arm (L), no edema noted Arm (R), no edema noted Leg (L), no edema noted Leg (R), no edema noted Pedal (L), no edema noted Pedal (R), no edema noted Generalized Neurologic: motor weakness Skin: normal pigmentation, warm/dry JUAN FROST Jun 24, 2017 12:20
--- NOTE | 2017-06-24 15:30 | Pulmonology Progress Note ---
Assessment/Plan Problems: (1) COPD (chronic obstructive pulmonary disease) (2) Priapism (3) Agitation (4) HTN (hypertension) (5) Psychiatric disorder Assessment/Plan VS table improving respiratory treatment IV fluids psych evaluation monitor BP Urinated today back to med/surg dc planning Subjective ROS Limited/Unobtainable: No Constitutional: Reports: no symptoms HEENT: Repors: no symptoms Respiratory: Reports: no symptoms Allergies: Coded Allergies: CHLORPROMAZINE (Verified Allergy, Unknown, 04/20/17) DIVALPROEX SODIUM (Verified Allergy, Unknown, 04/17/17) FISH CONTAINING PRODUCTS (Verified Allergy, Unknown, 06/20/17) Objective Last 24 Hour Vital Signs Date Time Temp Pulse Resp B/P (MAP) Pulse Ox O2 Delivery O2 Flow Rate FiO2 06/24/17 12:15 97.2 98 19 107/68 96 Nasal Cannula 06/24/17 08:15 97.7 82 21 103/65 95 Nasal Cannula 4.0 06/24/17 04:00 98.2 71 21 119/69 96 06/24/17 00:00 98.2 95 21 136/89 98 06/23/17 20:00 98.3 72 20 121/68 96 06/23/17 16:02 97.3 69 20 126/67 95 Intake and Output 06/23/17 06/24/17 19:00 07:00 Intake Total 1030 ml Output Total 1270 ml Balance -240 ml Intake Oral 1030 ml Output Urine Total 1270 ml # Voids 4 4 General Appearance: WD/WN HEENT: normocephalic, atraumatic Respiratory/Chest: chest wall non-tender, lungs clear Cardiovascular: normal peripheral pulses, normal rate Abdomen: normal bowel sounds, soft, non tender, no scars Extremities: no cyanosis Skin: no rash Laboratory Tests 06/24/17 08:24: White Blood Count 5.5, Red Blood Count 4.53L, Hemoglobin 15.5, Hematocrit 43.9, Mean Corpuscular Volume 97, Mean Corpuscular Hemoglobin 34.2H, Mean Corpuscular Hemoglobin Concent 35.3, Red Cell Distribution Width 10.5L, Platelet Count 213, Mean Platelet Volume 7.2, Neutrophils (%) (Auto) 67.7, Lymphocytes (%) (Auto) 21.4, Monocytes (%) (Auto) 6.2, Eosinophils (%) (Auto) 3.3H, Basophils (%) (Auto ) 1.4, Sodium Level 138, Potassium Level 4.2, Chloride Level 101, Carbon Dioxide Level 30, Anion Gap 7, Blood Urea Nitrogen 14, Creatinine 0.9, Estimat Glomerular Filtration Rate > 60, Glucose Level 116H, Calcium Level 9.1 Current Medications Medications (Trade) Dose Ordered Sig/Sharon Route PRN Reason Start Time Stop Time Status Last Admin Dose Admin Acetaminophen (Tylenol) 650 mg Q4H PRN ORAL fever>100.5 06/23/17 18:30 07/20/17 14:29 06/23/17 22:03 Al Hydroxide/Mg Hydroxide (Mylanta II) 30 ml Q6H PRN ORAL dyspepsia 06/23/17 20:30 07/20/17 14:29 Benztropine Mesylate (Cogentin) 2 mg BEDTIME ORAL 06/24/17 21:00 07/20/17 17:59 Carbamazepine (TEGretol) 200 mg Q12HR ORAL 06/23/17 21:00 07/20/17 20:59 06/24/17 09:34 Dextrose (Dextrose 50%) STAT PRN IV Hypoglycemia 06/24/17 14:30 07/20/17 14:29 Escitalopram Oxalate (Lexapro) 10 mg DAILY ORAL 06/24/17 09:00 07/21/17 08:59 06/24/17 09:34 Gabapentin (Neurontin) 300 mg EVERY 8 HOURS ORAL 06/23/17 22:00 07/20/17 14:59 06/24/17 13:23 Heparin Sodium (Porcine) (Heparin 5000 units/ml) 5,000 units EVERY 12 HOURS SUBQ 06/23/17 21:00 07/20/17 10:59 06/24/17 09:38 Lamotrigine (LaMICtal) 100 mg Q12HR ORAL 06/23/17 21:00 07/20/17 20:59 06/24/17 09:34 Levetiracetam (Keppra) 1,000 mg EVERY 12 HOURS ORAL 06/23/17 21:00 07/20/17 20:59 06/24/17 09:33 Lidocaine (Lidoderm 5% PATCH) 1 patch DAILY TDERMAL 06/24/17 09:00 07/21/17 11:59 06/24/17 09:35 Lorazepam (Ativan 2mg/ml 1ml) 0.5 mg Q4H PRN IV For Anxiety 06/23/17 16:15 06/27/17 08:14 06/24/17 13:23 Morphine Sulfate (Morphine Sulfate) 2 mg Q4H PRN IVP Moderate Pain (Pain Scale 4-6) 06/23/17 19:00 06/27/17 14:59 06/24/17 09:39 Morphine Sulfate (Morphine Sulfate) 4 mg Q4H PRN IVP Severe Pain (Pain Scale 7-10) 06/23/17 19:00 06/27/17 14:59 Nicotine (Nicoderm) 1 patch Q24H TDERMAL 06/24/17 15:00 07/20/17 14:59 Ondansetron HCl (Zofran) 4 mg Q6H PRN IVP Nausea & Vomiting 06/23/17 21:00 07/20/17 14:59 Polyethylene Glycol (Miralax) 17 gm HSPRN PRN ORAL Constipation 06/23/17 22:30 07/22/17 22:29 Quetiapine Fumarate (SEROquel) 200 mg BEDTIME ORAL 06/24/17 21:00 07/24/17 20:59 Tamsulosin HCl (Flomax) 0.4 mg DAILY ORAL 06/23/17 16:30 07/23/17 16:29 06/24/17 09:34 Zolpidem Tartrate (Ambien) 5 mg HSPRN PRN ORAL Insomnia 06/23/17 21:00 06/27/17 20:59 06/23/17 21:51 JJ YUNG Jun 24, 2017 15:30
[2017-06-24 16:00] VITALS: BP 109/70
--- NOTE | 2017-06-24 16:55 | General Progress Note ---
Assessment/Plan Assessment/Plan (1) Epilepsy (2) Neuropathic pain (3) Chronic pain syndrome (4) Right knee pain Pt will be continued on the Morphine and Lidoderm patch D/w Dr. Dye and he concurred. Subjective Date patient seen: Jun 24, 2017 Time patient seen: 04:15 - pm Allergies: Coded Allergies: CHLORPROMAZINE (Verified Allergy, Unknown, 04/20/17) DIVALPROEX SODIUM (Verified Allergy, Unknown, 04/17/17) FISH CONTAINING PRODUCTS (Verified Allergy, Unknown, 06/20/17) Subjective REVIEW OF SYSTEMS: Denies rash, fever, chills, sweating, dizziness, drowsiness, blurred vision, sore throat, or change in his weight. No shortness of breath. No nausea, vomiting, diarrhea, or blood in stool or urine. No bowel or bladder incontinence. No dysuria. He is complaining of generalized body pain. SUBJECTIVE: Patient is in bed and reports his pain has been well managed and reduced on the Morphine. Objective Last 24 Hour Vital Signs Date Time Temp Pulse Resp B/P (MAP) Pulse Ox O2 Delivery O2 Flow Rate FiO2 06/24/17 16:00 98.0 83 20 109/70 97 06/24/17 12:15 97.2 98 19 107/68 96 Nasal Cannula 06/24/17 08:15 97.7 82 21 103/65 95 Nasal Cannula 4.0 06/24/17 04:00 98.2 71 21 119/69 96 06/24/17 00:00 98.2 95 21 136/89 98 06/23/17 20:00 98.3 72 20 121/68 96 Intake and Output 06/23/17 06/24/17 19:00 07:00 Intake Total 1030 ml Output Total 1270 ml Balance -240 ml Intake Oral 1030 ml Output Urine Total 1270 ml # Voids 4 4 Laboratory Tests 06/24/17 08:24: White Blood Count 5.5, Red Blood Count 4.53L, Hemoglobin 15.5, Hematocrit 43.9, Mean Corpuscular Volume 97, Mean Corpuscular Hemoglobin 34.2H, Mean Corpuscular Hemoglobin Concent 35.3, Red Cell Distribution Width 10.5L, Platelet Count 213, Mean Platelet Volume 7.2, Neutrophils (%) (Auto) 67.7, Lymphocytes (%) (Auto) 21.4, Monocytes (%) (Auto) 6.2, Eosinophils (%) (Auto) 3.3H, Basophils (%) (Auto ) 1.4, Sodium Level 138, Potassium Level 4.2, Chloride Level 101, Carbon Dioxide Level 30, Anion Gap 7, Blood Urea Nitrogen 14, Creatinine 0.9, Estimat Glomerular Filtration Rate > 60, Glucose Level 116H, Calcium Level 9.1 Height (Feet): 5 Height (Inches): 7.00 Weight (Pounds): 162 Objective GENERAL: Alert, awake, and oriented. LUNGS: Clear. HEART: S1 S2 Regular. ABDOMEN: Benign. EXTREMITIES: No cyanosis. No clubbing. NEUROLOGIC: No changes. EMMA AGUILAR Jun 24, 2017 16:55
[2017-06-24 20:00] VITALS: BP 115/61
[2017-06-24] MEDS: Benztropine 1mg tab ORAL SCH (21:39)
[2017-06-24] MEDS: Albuterol 90mcg Inhaler 8gm INH SCH (22:00)
[2017-06-24] MEDS: Zolpidem 5mg tab ORAL PRN (23:03)
[2017-06-25] VITALS: BP 112/72
[2017-06-25 04:00] VITALS: BP 98/61
[2017-06-25] MEDS: Morphine Sulfate 4mg/ml Inj IVP PRN ×3 (06:25→17:48)
[2017-06-25 08:00] VITALS: BP 138/79
[2017-06-25] MEDS: Tamsulosin 0.4mg cap ORAL SCH (08:40)
[2017-06-25] MEDS: carBAMazepine 200mg tab ORAL SCH ×2 (08:40→20:31)
[2017-06-25] MEDS: Heparin 5000 units/ml inj SUBQ SCH ×2 (08:41→20:33)
[2017-06-25] MEDS: Albuterol 90mcg Inhaler 8gm INH SCH ×2 (08:42→23:28)
--- NOTE | 2017-06-25 08:51 | General Progress Note ---
Assessment/Plan Assessment/Plan (1) Epilepsy (2) Neuropathic pain (3) Chronic pain syndrome (4) Right knee pain Pt will be continued on the Morphine and Lidoderm patch D/w Dr. Dye and he concurred. Subjective Date patient seen: Jun 25, 2017 Time patient seen: 07:00 - am Allergies: Coded Allergies: CHLORPROMAZINE (Verified Allergy, Unknown, 04/20/17) DIVALPROEX SODIUM (Verified Allergy, Unknown, 04/17/17) FISH CONTAINING PRODUCTS (Verified Allergy, Unknown, 06/20/17) Subjective REVIEW OF SYSTEMS: Denies rash, fever, chills, sweating, dizziness, drowsiness, blurred vision, sore throat, or change in his weight. No shortness of breath. No nausea, vomiting, diarrhea, or blood in stool or urine. No bowel or bladder incontinence. No dysuria. He is complaining of generalized body pain. SUBJECTIVE: Patient reports that he is doing well and tolerating pain on the morphine he has no new complaints. Objective Last 24 Hour Vital Signs Date Time Temp Pulse Resp B/P (MAP) Pulse Ox O2 Delivery O2 Flow Rate FiO2 06/25/17 08:43 76 18 98 Nasal Cannula 4.0 36 06/25/17 08:43 75 20 97 Nasal Cannula 3.0 32 06/25/17 04:00 97.9 66 20 98/61 97 06/25/17 00:00 97.9 69 21 112/72 98 06/24/17 20:00 98.4 75 21 115/61 96 06/24/17 19:00 Room Air 21 06/24/17 19:00 98 20 96 Room Air 21 06/24/17 16:00 98.0 83 20 109/70 97 06/24/17 12:15 97.2 98 19 107/68 96 Nasal Cannula Intake and Output 06/24/17 06/25/17 19:00 07:00 Intake Total 1280 ml Balance 1280 ml Intake Oral 1280 ml # Voids 6 3 Height (Feet): 5 Height (Inches): 7.00 Weight (Pounds): 162 Objective GENERAL: Alert, awake, and oriented. LUNGS: Clear. HEART: S1 S2 Regular. ABDOMEN: Benign. EXTREMITIES: No cyanosis. No clubbing. NEUROLOGIC: No changes. EMMA AGUILAR NAngel PAbiodun Jun 25, 2017 08:51
--- NOTE | 2017-06-25 09:00 | Progress Note ---
DATE: 06/24/2017 SUBJECTIVE: The patient is calm in bed. No behavior issues. The patient has priapism, however, at this time he is not in pain. Compliant with his medication. Trazodone is discontinued. The patient has tardive dyskinesia. The patient recently. MENTAL STATUS EXAMINATION: The patient is alert and oriented times self, place, and situation he is in. He is calm. There is no psychomotor agitation or retardation. The patient is having tardive dyskinesia. Thought process is linear and goal oriented. No suicidal or homicidal ideations. No psychotic symptoms including hallucinations or delusions. The patient is alert and oriented times self, place, situation, and time. ASSESSMENT: 1. Depression. 2. Tardive dyskinesia. PLAN: 1. We will continue the current medication. 2. Continue with Seroquel 200 mg. 3. Continue with Lexapro. 4. We will continue to follow and readjust the medications. Monica Herbert M.D. DR: CHANDLER JOB#: [id number] CC:
[2017-06-25] MEDS: LORazepam Inj 2mg/ml 1ml IV PRN ×2 (10:03→20:31)
[2017-06-25 12:00] VITALS: BP 132/73
--- NOTE | 2017-06-25 13:29 | General Progress Note ---
Assessment/Plan Problem List: (1) UTI (urinary tract infection) ICD Codes: N39.0 - Urinary tract infection, site not specified SNOMED: 94401002 (2) Epilepsia ICD Codes: G40.909 - Epilepsy, unspecified, not intractable, without status epilepticus SNOMED: 41645894 (3) Agitation ICD Codes: R45.1 - Restlessness and agitation SNOMED: 901001537 (4) COPD (chronic obstructive pulmonary disease) ICD Codes: J44.9 - Chronic obstructive pulmonary disease, unspecified SNOMED: 25795262 (5) HTN (hypertension) ICD Codes: I10 - Essential (primary) hypertension SNOMED: 65217324 (6) chronic pain syndrom with drug seeking behavior (7) Psychiatric disorder ICD Codes: F99 - Mental disorder, not otherwise specified SNOMED: 10541918, 256503277 Status: stable, progressing, tolerating diet Assessment/Plan ot pt diet abx psyc tx pain control cbc bmp am dc to snf Subjective Constitutional: Reports: weakness Allergies: Coded Allergies: CHLORPROMAZINE (Verified Allergy, Unknown, 04/20/17) DIVALPROEX SODIUM (Verified Allergy, Unknown, 04/17/17) FISH CONTAINING PRODUCTS (Verified Allergy, Unknown, 06/20/17) All Systems: reviewed and negative except above Subjective sleepy in bed calm Objective Last 24 Hour Vital Signs Date Time Temp Pulse Resp B/P (MAP) Pulse Ox O2 Delivery O2 Flow Rate FiO2 06/25/17 12:00 98.0 80 20 132/73 99 06/25/17 08:43 76 18 98 Nasal Cannula 4.0 36 06/25/17 08:43 75 20 97 Nasal Cannula 3.0 32 06/25/17 08:00 97.6 77 20 138/79 100 06/25/17 04:00 97.9 66 20 98/61 97 06/25/17 00:00 97.9 69 21 112/72 98 06/24/17 20:00 98.4 75 21 115/61 96 06/24/17 19:00 Room Air 21 06/24/17 19:00 98 20 96 Room Air 21 06/24/17 16:00 98.0 83 20 109/70 97 Intake and Output 06/24/17 06/25/17 19:00 07:00 Intake Total 1280 ml Balance 1280 ml Intake Oral 1280 ml # Voids 6 3 Height (Feet): 5 Height (Inches): 7.00 Weight (Pounds): 162 General Appearance: lethargic EENT: normal ENT inspection Neck: normal alignment Cardiovascular: normal peripheral pulses, normal rate, regular rhythm Respiratory/Chest: chest wall non-tender, lungs clear, normal breath sounds Abdomen: normal bowel sounds, non tender, soft Extremities: normal inspection Edema: no edema noted Arm (L), no edema noted Arm (R), no edema noted Leg (L), no edema noted Leg (R), no edema noted Pedal (L), no edema noted Pedal (R), no edema noted Generalized Neurologic: responsive, motor weakness Skin: normal pigmentation, warm/dry JUAN FROST Jun 25, 2017 13:28
--- NOTE | 2017-06-25 16:30 | Progress Note ---
DATE: 06/25/2017 SUBJECTIVE: The patient is calm in bed. No behavior issues. Compliant with medication. Pleasant. No suicidal or homicidal ideations. MENTAL STATUS EXAMINATION: The patient is alert and oriented times self, place, and situation he is in. Mood is neutral. Affect is constricted. Congruent with mood. Thought process is linear. Thought content, no suicidal or homicidal ideations. No delusions. Cognition is intact. Insight and judgment is fair. ASSESSMENT: Depression. PLAN: We will continue current medications. Monica Herbert M.D. DR: KHOA JOB#: [id number] CC:
[2017-06-25 16:49] VITALS: BP 113/66
--- NOTE | 2017-06-25 17:59 | Pulmonology Progress Note ---
Assessment/Plan Problems: (1) COPD (chronic obstructive pulmonary disease) (2) Priapism (3) Agitation (4) HTN (hypertension) (5) Psychiatric disorder Assessment/Plan VS table improving respiratory treatment psych evaluation monitor BP Urinated today back to med/surg dc planning in process Subjective ROS Limited/Unobtainable: No Constitutional: Reports: no symptoms HEENT: Repors: no symptoms Respiratory: Reports: no symptoms Allergies: Coded Allergies: CHLORPROMAZINE (Verified Allergy, Unknown, 04/20/17) DIVALPROEX SODIUM (Verified Allergy, Unknown, 04/17/17) FISH CONTAINING PRODUCTS (Verified Allergy, Unknown, 06/20/17) Objective Last 24 Hour Vital Signs Date Time Temp Pulse Resp B/P (MAP) Pulse Ox O2 Delivery O2 Flow Rate FiO2 06/25/17 16:49 98.1 82 14 113/66 98 Room Air 06/25/17 12:00 98.0 80 20 132/73 99 06/25/17 08:43 76 18 98 Nasal Cannula 4.0 36 06/25/17 08:43 75 20 97 Nasal Cannula 3.0 32 06/25/17 08:00 97.6 77 20 138/79 100 06/25/17 04:00 97.9 66 20 98/61 97 06/25/17 00:00 97.9 69 21 112/72 98 06/24/17 20:00 98.4 75 21 115/61 96 06/24/17 19:00 Room Air 21 06/24/17 19:00 98 20 96 Room Air 21 Intake and Output 06/24/17 06/25/17 19:00 07:00 Intake Total 1280 ml Balance 1280 ml Intake Oral 1280 ml # Voids 6 3 Objective General Appearance: cachetic Lines, tubes and drains: peripheral HEENT: normocephalic, atraumatic Neck: non-tender, normal alignment Respiratory/Chest: chest wall non-tender, lungs clear Cardiovascular/Chest: normal peripheral pulses, normal rate Abdomen: normal bowel sounds, soft Genitourinary/Rectal: normal rectal exam, normal prostate exam Current Medications Medications (Trade) Dose Ordered Sig/Sharon Route PRN Reason Start Time Stop Time Status Last Admin Dose Admin Acetaminophen (Tylenol) 650 mg Q4H PRN ORAL fever>100.5 06/23/17 18:30 07/20/17 14:29 06/23/17 22:03 Al Hydroxide/Mg Hydroxide (Mylanta II) 30 ml Q6H PRN ORAL dyspepsia 06/23/17 20:30 07/20/17 14:29 Albuterol Sulfate (Proventil MDI) 2 puff BIDRT INH 06/24/17 22:00 07/24/17 21:59 06/25/17 08:42 Benztropine Mesylate (Cogentin) 2 mg BEDTIME ORAL 06/24/17 21:00 07/20/17 17:59 06/24/17 21:39 Carbamazepine (TEGretol) 200 mg Q12HR ORAL 06/23/17 21:00 07/20/17 20:59 06/25/17 08:40 Dextrose (Dextrose 50%) STAT PRN IV Hypoglycemia 06/24/17 14:30 07/20/17 14:29 Escitalopram Oxalate (Lexapro) 10 mg DAILY ORAL 06/24/17 09:00 07/21/17 08:59 06/25/17 08:40 Gabapentin (Neurontin) 300 mg EVERY 8 HOURS ORAL 06/23/17 22:00 07/20/17 14:59 06/25/17 14:18 Heparin Sodium (Porcine) (Heparin 5000 units/ml) 5,000 units EVERY 12 HOURS SUBQ 06/23/17 21:00 07/20/17 10:59 06/24/17 21:46 Lamotrigine (LaMICtal) 100 mg Q12HR ORAL 06/23/17 21:00 07/20/17 20:59 06/25/17 08:40 Levetiracetam (Keppra) 1,000 mg EVERY 12 HOURS ORAL 06/23/17 21:00 07/20/17 20:59 06/25/17 08:40 Lidocaine (Lidoderm 5% PATCH) 1 patch DAILY TDERMAL 06/24/17 09:00 07/21/17 11:59 06/25/17 08:41 Lorazepam (Ativan 2mg/ml 1ml) 0.5 mg Q4H PRN IV For Anxiety 06/23/17 16:15 06/27/17 08:14 06/25/17 10:03 Morphine Sulfate (Morphine Sulfate) 2 mg Q4H PRN IVP Moderate Pain (Pain Scale 4-6) 06/23/17 19:00 06/27/17 14:59 06/25/17 17:48 Morphine Sulfate (Morphine Sulfate) 4 mg Q4H PRN IVP Severe Pain (Pain Scale 7-10) 06/23/17 19:00 06/27/17 14:59 Nicotine (Nicoderm) 1 patch Q24H TDERMAL 06/24/17 15:00 07/20/17 14:59 06/25/17 14:19 Ondansetron HCl (Zofran) 4 mg Q6H PRN IVP Nausea & Vomiting 06/23/17 21:00 07/20/17 14:59 Polyethylene Glycol (Miralax) 17 gm HSPRN PRN ORAL Constipation 06/23/17 22:30 07/22/17 22:29 Quetiapine Fumarate (SEROquel) 200 mg BEDTIME ORAL 06/24/17 21:00 07/24/17 20:59 06/24/17 21:40 Tamsulosin HCl (Flomax) 0.4 mg DAILY ORAL 06/23/17 16:30 07/23/17 16:29 06/25/17 08:40 Zolpidem Tartrate (Ambien) 5 mg HSPRN PRN ORAL Insomnia 06/23/17 21:00 06/27/17 20:59 06/24/17 23:03 JJ YUNG Jun 25, 2017 17:59
[2017-06-25 20:00] VITALS: BP 114/64
--- NOTE | 2017-06-25 20:30 | Progress Note ---
DATE: 06/25/2017 SUBJECTIVE: The patient is a 42-year-old male patient. He continues to have agitation, but also some mood lability, racing thoughts, and high levels of anxiety. Seen and assessed at bedside. decline in cognition and mood lability as well as infection the medical unit, but at the same time because of his agitation and mood lability, his attending has requested daily psychiatric consultation. MENTAL STATUS EXAMINATION: This is a 42-year-old male with psychomotor agitation. Mood is irritable and agitated. Affect is guarded and restricted. Intellect is poor. Mood is depressed and anxious. Motor activity, psychomotor agitation. Thought process, disorganized. Thought content, racing thoughts and pressured speech pattern. Insight and judgment is poor. DIAGNOSIS: Schizoaffective, bipolar type. PLAN: Continue to treat the patient with Geodon twice a day 20 mg to reduce agitation and mood lability and also Lamictal as well as a mood stabilizer. Provide him with 15 to 20 minutes of supportive therapy and encourage him to interact appropriately with staff and other patients. Chart was reviewed and discussed with staff. Seen and assessed at bedside. Wing Cervantes M.D. DR: SALOME JOB#: [id number] CC:
--- NOTE | 2017-06-25 20:30 | Progress Note ---
DATE: 06/25/2017 NOTE: INCOMPLETE DICTATION SUBJECTIVE: The patient is a 42-year-old male patient with agitation and mood lability. He has got . Wing Cervantes M.D. DR: PABLO JOB#: [id number] CC:
[2017-06-25] MEDS: Benztropine 1mg tab ORAL SCH (20:31)
[2017-06-26] VITALS: BP 128/64
[2017-06-26] MEDS: Morphine Sulfate 4mg/ml Inj IVP PRN (03:50)
[2017-06-26 04:00] VITALS: BP 101/52
[2017-06-26 08:00] VITALS: BP 102/57
[2017-06-26] MEDS: carBAMazepine 200mg tab ORAL SCH ×2 (08:19→20:40)
[2017-06-26] MEDS: Tamsulosin 0.4mg cap ORAL SCH (08:19)
[2017-06-26 08:20] LABS: EOSINOPHILS % (AUTO) 3.4 % (0.0-3.0); HEMATOCRIT 43.6 % (42.0-52.0); HEMOGLOBIN 15.5 G/DL (14.2-18.0); MEAN CORPUSCULAR VOLUME 97 FL (80-99); MONOCYTES % (AUTO) 5.6 % (1.0-10.0); NEUTROPHILS % (AUTO) 65.1 % (45.0-75.0); PLATELET COUNT 230 K/UL (150-450); RED CELL DISTRIBUTION WIDTH 10.7 % (11.6-14.8); WHITE BLOOD COUNT 7.9 K/UL (4.8-10.8)
[2017-06-26] MEDS: Heparin 5000 units/ml inj SUBQ SCH ×2 (08:21→20:41)
[2017-06-26 08:45] LABS: ANION GAP 6 mmol/L (5-15); BLOOD UREA NITROGEN 18 mg/dL (7-18); CALCIUM 9.2 MG/DL (8.5-10.1); CARBON DIOXIDE 29 MMOL/L (21-32); CHLORIDE 105 MMOL/L (98-107); POTASSIUM 4.1 MMOL/L (3.5-5.1); SODIUM 140 MMOL/L (136-145)
--- NOTE | 2017-06-26 09:06 | General Progress Note ---
Assessment/Plan Assessment/Plan (1) Epilepsy (2) Neuropathic pain (3) Chronic pain syndrome (4) Right knee pain Pt will be discontinued off the Morphine and started on Percocet 5/325mg PO 1 tab Q4H PRN severe pain we will continue the Lidoderm patch D/w Dr. Dye and he concurred. Subjective Date patient seen: Jun 26, 2017 Time patient seen: 08:00 - am Allergies: Coded Allergies: CHLORPROMAZINE (Verified Allergy, Unknown, 04/20/17) DIVALPROEX SODIUM (Verified Allergy, Unknown, 04/17/17) FISH CONTAINING PRODUCTS (Verified Allergy, Unknown, 06/20/17) Subjective REVIEW OF SYSTEMS: Denies rash, fever, chills, sweating, dizziness, drowsiness, blurred vision, sore throat, or change in his weight. No shortness of breath. No nausea, vomiting, diarrhea, or blood in stool or urine. No bowel or bladder incontinence. No dysuria. He is complaining of generalized body pain. SUBJECTIVE: Patient continues to c/o body pain and it has been tolerated on the Morphine. I d/w patient about discontinuing he Morphine and starting Percocet and he understands. Objective Last 24 Hour Vital Signs Date Time Temp Pulse Resp B/P (MAP) Pulse Ox O2 Delivery O2 Flow Rate FiO2 06/26/17 08:00 97.7 79 19 102/57 97 Nasal Cannula 4.0 06/26/17 04:00 97.2 70 20 101/52 97 06/26/17 00:00 Nasal Cannula 2.0 06/26/17 00:00 97.3 67 19 128/64 94 Room Air 06/25/17 20:00 98.6 86 19 114/64 98 Room Air 06/25/17 19:04 71 18 96 Room Air 21 06/25/17 19:04 78 20 97 Room Air 21 06/25/17 16:49 98.1 82 14 113/66 98 Room Air 06/25/17 12:00 98.0 80 20 132/73 99 Intake and Output 06/25/17 06/26/17 19:00 07:00 Intake Total 1800 ml Balance 1800 ml Intake Oral 1800 ml # Voids 8 2 Laboratory Tests 06/26/17 07:15: White Blood Count 7.9, Red Blood Count 4.50L, Hemoglobin 15.5, Hematocrit 43.6, Mean Corpuscular Volume 97, Mean Corpuscular Hemoglobin 34.4H, Mean Corpuscular Hemoglobin Concent 35.5, Red Cell Distribution Width 10.7L, Platelet Count 230, Mean Platelet Volume 7.6, Neutrophils (%) (Auto) 65.1, Lymphocytes (%) (Auto) 25.0, Monocytes (%) (Auto) 5.6, Eosinophils (%) (Auto) 3.4H, Basophils (%) (Auto ) 1.0, Sodium Level [Pending], Potassium Level [Pending], Chloride Level [ Pending], Carbon Dioxide Level [Pending], Blood Urea Nitrogen [Pending], Creatinine [Pending], Estimat Glomerular Filtration Rate [Pending], Glucose Level [Pending], Calcium Level [Pending] Height (Feet): 5 Height (Inches): 7.00 Weight (Pounds): 162 Objective GENERAL: Alert, awake, and oriented. LUNGS: Clear. HEART: S1 S2 Regular. ABDOMEN: Benign. EXTREMITIES: No cyanosis. No clubbing. NEUROLOGIC: No changes. EMMA AGUILAR Jun 26, 2017 09:06
[2017-06-26] MEDS ORDERED: oxyCODONE HCL/Acetaminophen 5/325mg ORAL PRN (09:15)
[2017-06-26] MEDS: Albuterol 90mcg Inhaler 8gm INH SCH ×2 (10:23→21:09)
[2017-06-26] MEDS: LORazepam Inj 2mg/ml 1ml IV PRN ×2 (10:48→16:18)
--- NOTE | 2017-06-26 12:08 | General Progress Note ---
Assessment/Plan Problem List: (1) UTI (urinary tract infection) ICD Codes: N39.0 - Urinary tract infection, site not specified SNOMED: 49729884 (2) Epilepsia ICD Codes: G40.909 - Epilepsy, unspecified, not intractable, without status epilepticus SNOMED: 83866641 (3) Agitation ICD Codes: R45.1 - Restlessness and agitation SNOMED: 590548981 (4) COPD (chronic obstructive pulmonary disease) ICD Codes: J44.9 - Chronic obstructive pulmonary disease, unspecified SNOMED: 42695924 (5) HTN (hypertension) ICD Codes: I10 - Essential (primary) hypertension SNOMED: 76447204 (6) chronic pain syndrom with drug seeking behavior (7) Psychiatric disorder ICD Codes: F99 - Mental disorder, not otherwise specified SNOMED: 03160134, 116457241 Status: unchanged Assessment/Plan ot pt diet abx psyc tx pain control dc to snf Subjective Constitutional: Reports: weakness Allergies: Coded Allergies: CHLORPROMAZINE (Verified Allergy, Unknown, 04/20/17) DIVALPROEX SODIUM (Verified Allergy, Unknown, 04/17/17) FISH CONTAINING PRODUCTS (Verified Allergy, Unknown, 06/20/17) All Systems: reviewed and negative except above Subjective o2nc sleepy in bed calm Objective Last 24 Hour Vital Signs Date Time Temp Pulse Resp B/P (MAP) Pulse Ox O2 Delivery O2 Flow Rate FiO2 06/26/17 10:26 97 Nasal Cannula 4.0 36 06/26/17 10:26 Nasal Cannula 4.0 36 06/26/17 10:24 79 20 97 Nasal Cannula 4.0 36 06/26/17 10:23 77 20 97 Nasal Cannula 4.0 36 06/26/17 08:00 97.7 79 19 102/57 97 Nasal Cannula 4.0 06/26/17 04:00 97.2 70 20 101/52 97 06/26/17 00:00 Nasal Cannula 2.0 06/26/17 00:00 97.3 67 19 128/64 94 Room Air 06/25/17 20:00 98.6 86 19 114/64 98 Room Air 06/25/17 19:04 71 18 96 Room Air 21 06/25/17 19:04 78 20 97 Room Air 21 06/25/17 16:49 98.1 82 14 113/66 98 Room Air Intake and Output 06/25/17 06/26/17 19:00 07:00 Intake Total 1800 ml Balance 1800 ml Intake Oral 1800 ml # Voids 8 2 Laboratory Tests 06/26/17 07:15: White Blood Count 7.9, Red Blood Count 4.50L, Hemoglobin 15.5, Hematocrit 43.6, Mean Corpuscular Volume 97, Mean Corpuscular Hemoglobin 34.4H, Mean Corpuscular Hemoglobin Concent 35.5, Red Cell Distribution Width 10.7L, Platelet Count 230, Mean Platelet Volume 7.6, Neutrophils (%) (Auto) 65.1, Lymphocytes (%) (Auto) 25.0, Monocytes (%) (Auto) 5.6, Eosinophils (%) (Auto) 3.4H, Basophils (%) (Auto ) 1.0, Sodium Level 140, Potassium Level 4.1, Chloride Level 105, Carbon Dioxide Level 29, Anion Gap 6, Blood Urea Nitrogen 18, Creatinine 1.0, Estimat Glomerular Filtration Rate > 60, Glucose Level 109H, Calcium Level 9.2 Height (Feet): 5 Height (Inches): 7.00 Weight (Pounds): 162 General Appearance: lethargic EENT: normal ENT inspection Neck: normal alignment Cardiovascular: normal peripheral pulses, normal rate, regular rhythm Respiratory/Chest: chest wall non-tender, lungs clear, normal breath sounds Abdomen: normal bowel sounds, non tender, soft Extremities: normal inspection Edema: no edema noted Arm (L), no edema noted Arm (R), no edema noted Leg (L), no edema noted Leg (R), no edema noted Pedal (L), no edema noted Pedal (R), no edema noted Generalized Neurologic: responsive, motor weakness Skin: normal pigmentation, warm/dry JUAN FROST Jun 26, 2017 12:08
[2017-06-26 13:00] VITALS: BP 109/59
[2017-06-26 16:12] VITALS: BP 97/60
[2017-06-26] MEDS: Morphine Sulfate 2mg/ml Inj IVP PRN ×2 (17:05→23:07)
[2017-06-26 20:00] VITALS: BP 101/67
[2017-06-26] MEDS: Benztropine 1mg tab ORAL SCH (20:40)
--- NOTE | 2017-06-26 22:44 | Pulmonology Progress Note ---
Assessment/Plan Problems: (1) COPD (chronic obstructive pulmonary disease) (2) Priapism (3) Agitation (4) HTN (hypertension) (5) Psychiatric disorder Assessment/Plan VS table improving respiratory treatment psych evaluation monitor BP Urinated today back to med/surg dc planning in process Subjective ROS Limited/Unobtainable: No Allergies: Coded Allergies: CHLORPROMAZINE (Verified Allergy, Unknown, 04/20/17) DIVALPROEX SODIUM (Verified Allergy, Unknown, 04/17/17) FISH CONTAINING PRODUCTS (Verified Allergy, Unknown, 06/20/17) Objective Last 24 Hour Vital Signs Date Time Temp Pulse Resp B/P (MAP) Pulse Ox O2 Delivery O2 Flow Rate FiO2 06/26/17 21:11 78 20 98 Nasal Cannula 3.0 32 06/26/17 21:09 78 20 98 Nasal Cannula 3.0 32 06/26/17 20:04 97 Nasal Cannula 3.0 32 06/26/17 20:04 Nasal Cannula 3.0 32 06/26/17 20:00 97.5 21 101/67 95 06/26/17 16:12 97.7 66 21 97/60 97 Nasal Cannula 2.0 06/26/17 13:00 97.9 68 18 109/59 Nasal Cannula 2.0 06/26/17 10:26 97 Nasal Cannula 4.0 36 06/26/17 10:26 Nasal Cannula 4.0 36 06/26/17 10:24 79 20 97 Nasal Cannula 4.0 36 06/26/17 10:23 77 20 97 Nasal Cannula 4.0 36 06/26/17 08:00 97.7 79 19 102/57 97 Nasal Cannula 4.0 06/26/17 04:00 97.2 70 20 101/52 97 06/26/17 00:00 Nasal Cannula 2.0 06/26/17 00:00 97.3 67 19 128/64 94 Room Air Intake and Output 06/25/17 06/26/17 19:00 07:00 Intake Total 1800 ml Balance 1800 ml Intake Oral 1800 ml # Voids 8 2 Objective General Appearance: cachetic Lines, tubes and drains: peripheral HEENT: normocephalic, atraumatic Neck: non-tender, normal alignment Respiratory/Chest: chest wall non-tender, lungs clear Cardiovascular/Chest: normal peripheral pulses, normal rate Abdomen: normal bowel sounds, soft Genitourinary/Rectal: normal rectal exam, normal prostate exam Laboratory Tests 06/26/17 07:15: White Blood Count 7.9, Red Blood Count 4.50L, Hemoglobin 15.5, Hematocrit 43.6, Mean Corpuscular Volume 97, Mean Corpuscular Hemoglobin 34.4H, Mean Corpuscular Hemoglobin Concent 35.5, Red Cell Distribution Width 10.7L, Platelet Count 230, Mean Platelet Volume 7.6, Neutrophils (%) (Auto) 65.1, Lymphocytes (%) (Auto) 25.0, Monocytes (%) (Auto) 5.6, Eosinophils (%) (Auto) 3.4H, Basophils (%) (Auto ) 1.0, Sodium Level 140, Potassium Level 4.1, Chloride Level 105, Carbon Dioxide Level 29, Anion Gap 6, Blood Urea Nitrogen 18, Creatinine 1.0, Estimat Glomerular Filtration Rate > 60, Glucose Level 109H, Calcium Level 9.2 Current Medications Medications (Trade) Dose Ordered Sig/Sharon Route PRN Reason Start Time Stop Time Status Last Admin Dose Admin Acetaminophen (Tylenol) 650 mg Q4H PRN ORAL fever>100.5 06/23/17 18:30 07/20/17 14:29 06/23/17 22:03 Al Hydroxide/Mg Hydroxide (Mylanta II) 30 ml Q6H PRN ORAL dyspepsia 06/23/17 20:30 07/20/17 14:29 Albuterol Sulfate (Proventil MDI) 2 puff BIDRT INH 06/24/17 22:00 07/24/17 21:59 06/26/17 21:09 Benztropine Mesylate (Cogentin) 2 mg BEDTIME ORAL 06/24/17 21:00 07/20/17 17:59 06/26/17 20:40 Carbamazepine (TEGretol) 200 mg Q12HR ORAL 06/23/17 21:00 07/20/17 20:59 06/26/17 20:40 Dextrose (Dextrose 50%) STAT PRN IV Hypoglycemia 06/24/17 14:30 07/20/17 14:29 Escitalopram Oxalate (Lexapro) 10 mg DAILY ORAL 06/24/17 09:00 07/21/17 08:59 06/26/17 08:19 Gabapentin (Neurontin) 300 mg EVERY 8 HOURS ORAL 06/23/17 22:00 07/20/17 14:59 06/26/17 14:03 Heparin Sodium (Porcine) (Heparin 5000 units/ml) 5,000 units EVERY 12 HOURS SUBQ 06/23/17 21:00 07/20/17 10:59 06/26/17 20:41 Lamotrigine (LaMICtal) 100 mg Q12HR ORAL 06/23/17 21:00 07/20/17 20:59 06/26/17 20:39 Levetiracetam (Keppra) 1,000 mg EVERY 12 HOURS ORAL 06/23/17 21:00 07/20/17 20:59 06/26/17 20:40 Lidocaine (Lidoderm 5% PATCH) 1 patch DAILY TDERMAL 06/24/17 09:00 07/21/17 11:59 06/26/17 08:19 Lorazepam (Ativan 2mg/ml 1ml) 0.5 mg Q4H PRN IV For Anxiety 06/23/17 16:15 06/27/17 08:14 06/26/17 16:18 Morphine Sulfate (Morphine Sulfate) 2 mg Q4H PRN IVP FOR SEVERE PAIN 06/26/17 16:30 07/03/17 16:29 06/26/17 17:05 Nicotine (Nicoderm) 1 patch Q24H TDERMAL 06/24/17 15:00 07/20/17 14:59 06/26/17 14:03 Ondansetron HCl (Zofran) 4 mg Q6H PRN IVP Nausea & Vomiting 06/23/17 21:00 07/20/17 14:59 Oxycodone/ Acetaminophen (Percocet 5-325) 1 tab Q4H PRN ORAL Severe Pain (Pain Scale 7-10) 06/26/17 09:15 07/03/17 09:14 06/26/17 12:45 Polyethylene Glycol (Miralax) 17 gm HSPRN PRN ORAL Constipation 06/23/17 22:30 07/22/17 22:29 Quetiapine Fumarate (SEROquel) 200 mg BEDTIME ORAL 06/24/17 21:00 07/24/17 20:59 06/26/17 20:39 Tamsulosin HCl (Flomax) 0.4 mg DAILY ORAL 06/23/17 16:30 07/23/17 16:29 06/26/17 08:19 Zolpidem Tartrate (Ambien) 5 mg HSPRN PRN ORAL Insomnia 06/23/17 21:00 06/27/17 20:59 06/24/17 23:03 JJ YUNG Jun 26, 2017 22:44
[2017-06-27] VITALS: BP 98/53
[2017-06-27 04:00] VITALS: BP 110/54
--- NOTE | 2017-06-27 05:30 | Progress Note ---
DATE: 06/26/2017 SUBJECTIVE: The patient is the same, has multiple complaints, complaining of pain and is wanting to have pain medication. The patient is also illogical. I explained to him that he should not be taking trazodone. The patient has poor insight and judgment. MENTAL STATUS EXAMINATION: The patient is alert and oriented times self, place, and situation he is in. Mood is irritable. Affect is constricted, congruent with mood. Thought process is concrete. Thought content, no suicidal or homicidal ideation. ASSESSMENT: 1. Schizophrenia. 2. Depression. PLAN: 1. We will continue the current medications. 2. We will not continue the trazodone. Monica Herbert M.D. DR: TAMIR JOB#: [id number] CC:
[2017-06-27 08:00] VITALS: BP 112/63
--- NOTE | 2017-06-27 08:39 | General Progress Note ---
Assessment/Plan Problem List: (1) UTI (urinary tract infection) ICD Codes: N39.0 - Urinary tract infection, site not specified SNOMED: 52131936 (2) Epilepsia ICD Codes: G40.909 - Epilepsy, unspecified, not intractable, without status epilepticus SNOMED: 65357342 (3) Agitation ICD Codes: R45.1 - Restlessness and agitation SNOMED: 729040423 (4) COPD (chronic obstructive pulmonary disease) ICD Codes: J44.9 - Chronic obstructive pulmonary disease, unspecified SNOMED: 83803933 (5) HTN (hypertension) ICD Codes: I10 - Essential (primary) hypertension SNOMED: 15448229 (6) chronic pain syndrom with drug seeking behavior (7) Psychiatric disorder ICD Codes: F99 - Mental disorder, not otherwise specified SNOMED: 50235965, 510671996 Status: unchanged Assessment/Plan ot pt diet abx psyc tx pain control dc to snf Subjective Constitutional: Reports: weakness Allergies: Coded Allergies: CHLORPROMAZINE (Verified Allergy, Unknown, 04/20/17) DIVALPROEX SODIUM (Verified Allergy, Unknown, 04/17/17) FISH CONTAINING PRODUCTS (Verified Allergy, Unknown, 06/20/17) All Systems: reviewed and negative except above Subjective o2nc sleepy in bed calm Objective Last 24 Hour Vital Signs Date Time Temp Pulse Resp B/P (MAP) Pulse Ox O2 Delivery O2 Flow Rate FiO2 06/27/17 04:00 97.0 71 21 110/54 94 06/27/17 00:00 98.0 59 20 98/53 92 06/26/17 21:11 78 20 98 Nasal Cannula 3.0 32 06/26/17 21:09 78 20 98 Nasal Cannula 3.0 32 06/26/17 20:04 97 Nasal Cannula 3.0 32 06/26/17 20:04 Nasal Cannula 3.0 32 06/26/17 20:00 97.5 21 101/67 95 06/26/17 16:12 97.7 66 21 97/60 97 Nasal Cannula 2.0 06/26/17 13:00 97.9 68 18 109/59 Nasal Cannula 2.0 06/26/17 10:26 97 Nasal Cannula 4.0 36 06/26/17 10:26 Nasal Cannula 4.0 36 06/26/17 10:24 79 20 97 Nasal Cannula 4.0 36 06/26/17 10:23 77 20 97 Nasal Cannula 4.0 36 Intake and Output 06/26/17 06/27/17 19:00 07:00 Intake Total 480 ml Balance 480 ml Intake Oral 480 ml # Voids 3 2 Height (Feet): 5 Height (Inches): 7.00 Weight (Pounds): 162 General Appearance: lethargic EENT: normal ENT inspection Neck: normal alignment Cardiovascular: normal peripheral pulses, normal rate, regular rhythm Respiratory/Chest: chest wall non-tender, lungs clear, normal breath sounds Abdomen: normal bowel sounds, non tender, soft Extremities: normal inspection Edema: no edema noted Arm (L), no edema noted Arm (R), no edema noted Leg (L), no edema noted Leg (R), no edema noted Pedal (L), no edema noted Pedal (R), no edema noted Generalized Neurologic: responsive, motor weakness Skin: normal pigmentation, warm/dry JUAN FROST Jun 27, 2017 08:39
[2017-06-27] MEDS: Tamsulosin 0.4mg cap ORAL SCH (08:43)
[2017-06-27] MEDS: carBAMazepine 200mg tab ORAL SCH (08:43)
[2017-06-27] MEDS: Heparin 5000 units/ml inj SUBQ SCH (08:44)
[2017-06-27] MEDS: Morphine Sulfate 2mg/ml Inj IVP PRN ×2 (08:56→13:44)
[2017-06-27] MEDS: Albuterol 90mcg Inhaler 8gm INH SCH (09:13)
--- NOTE | 2017-06-27 11:54 | Pulmonology Progress Note ---
Assessment/Plan Problems: (1) COPD (chronic obstructive pulmonary disease) (2) Priapism (3) Agitation (4) HTN (hypertension) (5) Psychiatric disorder Assessment/Plan VS table improving respiratory treatment psych evaluation monitor BP Urinated today back to med/surg dc planning in process Subjective ROS Limited/Unobtainable: No Allergies: Coded Allergies: CHLORPROMAZINE (Verified Allergy, Unknown, 04/20/17) DIVALPROEX SODIUM (Verified Allergy, Unknown, 04/17/17) FISH CONTAINING PRODUCTS (Verified Allergy, Unknown, 06/20/17) Objective Last 24 Hour Vital Signs Date Time Temp Pulse Resp B/P (MAP) Pulse Ox O2 Delivery O2 Flow Rate FiO2 06/27/17 09:19 Nasal Cannula 3.0 32 06/27/17 09:18 96 Nasal Cannula 3.0 32 06/27/17 09:18 75 20 96 Nasal Cannula 3.0 32 06/27/17 09:17 75 20 96 Nasal Cannula 3.0 32 06/27/17 08:00 97.0 70 18 112/63 92 Nasal Cannula 4.0 06/27/17 04:00 97.0 71 21 110/54 94 06/27/17 00:00 98.0 59 20 98/53 92 06/26/17 21:11 78 20 98 Nasal Cannula 3.0 32 06/26/17 21:09 78 20 98 Nasal Cannula 3.0 32 06/26/17 20:04 97 Nasal Cannula 3.0 32 06/26/17 20:04 Nasal Cannula 3.0 32 06/26/17 20:00 97.5 21 101/67 95 06/26/17 16:12 97.7 66 21 97/60 97 Nasal Cannula 2.0 06/26/17 13:00 97.9 68 18 109/59 Nasal Cannula 2.0 Intake and Output 06/26/17 06/27/17 19:00 07:00 Intake Total 480 ml Balance 480 ml Intake Oral 480 ml # Voids 3 2 Objective General Appearance: cachetic Lines, tubes and drains: peripheral HEENT: normocephalic, atraumatic Neck: non-tender, normal alignment Respiratory/Chest: chest wall non-tender, lungs clear Cardiovascular/Chest: normal peripheral pulses, normal rate Abdomen: normal bowel sounds, soft Genitourinary/Rectal: normal rectal exam, normal prostate exam Current Medications Medications (Trade) Dose Ordered Sig/Sharon Route PRN Reason Start Time Stop Time Status Last Admin Dose Admin Acetaminophen (Tylenol) 650 mg Q4H PRN ORAL fever>100.5 06/23/17 18:30 07/20/17 14:29 06/23/17 22:03 Al Hydroxide/Mg Hydroxide (Mylanta II) 30 ml Q6H PRN ORAL dyspepsia 06/23/17 20:30 07/20/17 14:29 Albuterol Sulfate (Proventil MDI) 2 puff BIDRT INH 06/24/17 22:00 07/24/17 21:59 06/27/17 09:13 Benztropine Mesylate (Cogentin) 2 mg BEDTIME ORAL 06/24/17 21:00 07/20/17 17:59 06/26/17 20:40 Carbamazepine (TEGretol) 200 mg Q12HR ORAL 06/23/17 21:00 07/20/17 20:59 06/27/17 08:43 Dextrose (Dextrose 50%) STAT PRN IV Hypoglycemia 06/24/17 14:30 07/20/17 14:29 Escitalopram Oxalate (Lexapro) 10 mg DAILY ORAL 06/24/17 09:00 07/21/17 08:59 06/27/17 08:43 Gabapentin (Neurontin) 300 mg EVERY 8 HOURS ORAL 06/23/17 22:00 07/20/17 14:59 06/27/17 06:11 Heparin Sodium (Porcine) (Heparin 5000 units/ml) 5,000 units EVERY 12 HOURS SUBQ 06/23/17 21:00 07/20/17 10:59 06/27/17 08:44 Lamotrigine (LaMICtal) 100 mg Q12HR ORAL 06/23/17 21:00 07/20/17 20:59 06/27/17 08:43 Levetiracetam (Keppra) 1,000 mg EVERY 12 HOURS ORAL 06/23/17 21:00 07/20/17 20:59 06/27/17 08:43 Lidocaine (Lidoderm 5% PATCH) 1 patch DAILY TDERMAL 06/24/17 09:00 07/21/17 11:59 06/27/17 08:43 Morphine Sulfate (Morphine Sulfate) 2 mg Q4H PRN IVP FOR SEVERE PAIN 06/26/17 16:30 07/03/17 16:29 06/27/17 08:56 Nicotine (Nicoderm) 1 patch Q24H TDERMAL 06/24/17 15:00 07/20/17 14:59 06/26/17 14:03 Ondansetron HCl (Zofran) 4 mg Q6H PRN IVP Nausea & Vomiting 06/23/17 21:00 07/20/17 14:59 Oxycodone/ Acetaminophen (Percocet 5-325) 1 tab Q4H PRN ORAL Severe Pain (Pain Scale 7-10) 06/26/17 09:15 07/03/17 09:14 06/26/17 12:45 Polyethylene Glycol (Miralax) 17 gm HSPRN PRN ORAL Constipation 06/23/17 22:30 07/22/17 22:29 06/27/17 09:10 Quetiapine Fumarate (SEROquel) 200 mg BEDTIME ORAL 06/24/17 21:00 07/24/17 20:59 06/26/17 20:39 Tamsulosin HCl (Flomax) 0.4 mg DAILY ORAL 06/23/17 16:30 07/23/17 16:29 06/27/17 08:43 Zolpidem Tartrate (Ambien) 5 mg HSPRN PRN ORAL Insomnia 06/23/17 21:00 06/27/17 20:59 06/24/17 23:03 JJ YUNG Jun 27, 2017 11:54
[2017-06-27 12:00] VITALS: BP 120/60
[2017-06-27] MEDS ORDERED: LORazepam Inj 2mg/ml 1ml IV PRN (12:00)
--- NOTE | 2017-06-28 02:00 | Progress Note ---
DATE: 06/27/2017 NOTE: POOR AUDIO SUBJECTIVE: The patient is a 42-year-old male patient with agitation and irritability. He has diagnosis of bipolar 2 disorder, mood lability and agitation, possible sepsis, so, his attending has requested daily psychiatric consultation. MENTAL STATUS EXAMINATION: The patient is a 42-year-old male with psychomotor agitation. Mood is irritable and agitated. Affect is guarded and restricted. Thought process, disorganized and illogical. Denies any current suicidal or homicidal thoughts. racing thoughts and pressured speech. Mood lability. Insight and judgment is poor. DIAGNOSIS: Schizoaffective, bipolar type. PLAN: For this patient is to treat him with Seroquel mg at bedtime, Lamictal 100 mg q.12 hours, and Lexapro 10 mg daily. A 15 to 20 minutes of supportive therapy provided. Seen and assessed in his room. Chart was reviewed and discussed with staff. Wing Cervantes M.D. DR: Alexandro JOB#: [id number] CC:
--- NOTE | 2017-06-28 23:33 | General Progress Note ---
Assessment/Plan Status: stable, progressing Subjective Date patient seen: Jun 27, 2017 Neurologic/Psychiatric: Reports: anxiety, depressed, emotional problems Allergies: Coded Allergies: CHLORPROMAZINE (Verified Allergy, Unknown, 04/20/17) DIVALPROEX SODIUM (Verified Allergy, Unknown, 04/17/17) FISH CONTAINING PRODUCTS (Verified Allergy, Unknown, 06/20/17) Objective Height (Feet): 5 Height (Inches): 7.00 Weight (Pounds): 162 General Appearance: no apparent distress, alert, agitated Neurologic: alert, oriented x 3, responsive, depressed affect Monica Herbert M.D. Jun 28, 2017 23:33
--- NOTE | 2017-06-30 08:17 | Discharge Summary ---
Discharge Summary Hospital Course Date of Admission Jun 20, 2017 at 08:52 Date of Discharge Jun 27, 2017 at 14:22 Admitting Diagnosis Agitation HPI Rigo Howell is a 42 year old male who was admitted on Jun 20, 2017 at 08:52 for Agitation Hospital Course dc summary#[id number] Discharge Medications Continued Medications: Acetaminophen* (Acetaminophen 325MG Tablet*) 325 Mg Tablet 650 MG ORAL Q4H PRN for Fever/Headache/Mild Pain, TAB Al Hydroxide/mg Hydroxide (Mag-Al Plus Suspension) 30 Ml Oral.susp 30 ML PO Q6HR PRN for prn, ML Albuterol Sulfate (Ventolin Hfa) 18 Gm Hfa.aer.ad 2 PUFFS INH EVERY 6 HOURS PRN for Shortness of Breath, #18 GM 0 Refills Aspirin* (Aspirin*) 81 Mg Tab.chew 81 MG ORAL DAILY, TAB Benztropine Mesylate* (Benztropine Mesylate*) 1 Mg Tablet 2 MG PO BID, TAB Carbamazepine (Tegretol*) 200 Mg Tablet 200 MG PO TID, #10 TAB 0 Refills Diphenhydramine HCl (Benadryl) 25 Mg Capsule 50 MG PO QHS PRN for Itching, CAP Docusate Sodium* (Colace*) 100 Mg Capsule 100 MG ORAL DAILY, CAP Folic Acid/Vitamin B Comp W-C (Lia-Ramona Tablet) 0.8 Mg Tablet 1 MG PO, TAB Gabapentin* (Gabapentin*) 300 Mg Capsule 300 MG ORAL EVERY 8 HOURS, CAP Hydrocodone Bit/Acetaminophen 5-325* ([place] 5-325*) 1 Each Tablet 1 TAB ORAL Q6H PRN for For Pain, #10 TAB 0 Refills Lactulose (Lactulose*) 20 Gm/30 Ml Solution 15 ML ORAL DAILY, ML 0 Refills Lamotrigine (Lamictal) 200 Mg Tablet 50 MG ORAL TWICE A DAY, #60 TAB 0 Refills Levetiracetam (Keppra) 500 Mg Tablet 1500 MG ORAL EVERY 12 HOURS, #60 TAB 0 Refills Lorazepam* (Ativan*) 0.5 Mg Tablet 0.5 MG ORAL Q6HR PRN for For Anxiety, TAB Multivitamin (Multi Vitamin Daily) 1 Each Tablet 1 TAB ORAL DAILY, #30 TAB 0 Refills Nicotine 14MG Patch* (Nicoderm Cq 14MG*) 1 Each Patch.td24 1 EACH TD DAILY, EA Nitroglycerin (Nitroglycerin) 0.4 Mg Tab.subl 0.4 MG SL PRN for q5 mins x3 doses for chest kenneth, TAB Olopatadine (Patanol) 5 Ml Drops 1 DROP OD DAILY, ML Polyethylene Glycol 3350* (Polyethylene Glycol 3350*) 17 Gm Powd.pack 17 GM ORAL BEDTIME PRN for Constipation, PACKET Quetiapine Fumarate* (Seroquel*) 200 Mg Tablet 200 MG ORAL EVERY 8 HOURS, TAB Temazepam* (Restoril*) 15 Mg Capsule 15 MG ORAL BEDTIME PRN for Insomnia, CAP Trazodone* (Trazodone*) 150 Mg Tablet 50 MG ORAL BEDTIME, TAB Discharge Condition Upon Discharge: stable Discharge Disposition Patient was discharged to SNF/Subacute Facility(03) Discharge Diagnoses: Edgar (Alvinosandy),Ana SIN Jun 30, 2017 08:17
--- NOTE | 2017-06-30 23:30 | Discharge Summary 2 SIG ---
DATE OF ADMISSION: 06/20/2017 DATE OF DISCHARGE: 06/27/2017 REASON FOR ADMISSION: 42-year-old male with past medical history of hypertension, COPD, seizure disorder, peripheral neuropathy, depression, psychiatric history, wheelchair bound, came from the [facility]. Upon presentation, he appeared agitated and anxious. Initially, he stated that he was suicidal (prior to arrival to ED). Nursing facility arranged for transfer him to psychiatric emergency department for evaluation. The patient was supposed to be picked up at 6 a.m., but he was too inpatient to wait until 6 a.m., he left the facility earlier and took a taxi. The facility was considered him signing against medical advice. The patient claimed that he fell while he was getting to the taxi and hit his right hand, reported pain in the right hand. Upon evaluation, the patient was found to have stable vital signs. Laboratory workup was unremarkable. X-ray of right hand revealed no evidence of acute fracture. In the emergency department he denied any suicidal ideation or plan for suicide. The patient was admitted for placement, agitation, and management of psychiatric issues. ADMITTING DIAGNOSES: 1. Agitation. 2. Psychiatric history. 3. Seizure disorder. 4. Intractable pain. 5. Chronic pain. 6. Hypertension. 7. Chronic obstructive pulmonary disease. HOSPITAL COURSE: The patient admitted. Neurology, Psychiatry, painter aircraft, and Pulmonology consult were requested. The patient was observed for any paroxysmal events. Seizure precautions were maintained. Anti-epileptic regimen was optimized as per neurologist. Neurologist recommended to consider video EEG monitoring facility to transfer the patient to evaluate and rule out pseudoseizures. Psychiatrist seen and evaluated the patient and diagnosed him with schizoaffective disorder, bipolar type and major depression disorder. Psychiatric medication regimen was optimized to reduce dyskinesia. Physical and occupational therapists were working with the patient. No seizure activity while in the hospital. Pain management provided as per painter aircraft recommendation. Fall precaution were maintained. Supplemental oxygen and pulmonary toilet were provided as needed. The patient was counseled on smoking cessation. Nicotine patch was added to existing regimen. DVT prophylaxis provided. No complaints of suicidal ideation. Laboratory workup was stable. Urine tox screen was negative. CT of the head revealed no acute intracranial bleeding or mass effect. Blood pressure was stable without any antihypertensive medications at this time. Closely monitor blood pressure in the facility. Placement was found in [facility]. The patient was stable for discharge. FINAL DIAGNOSES: 1. Psychiatric disorder exacerbation with agitation. 2. Chronic seizure disorder, rule out pseudoseizures. 3. Chronic pain syndrome with drug-seeking behavior. 4. Hypertension. 5. Chronic obstructive pulmonary disease. 6. Extrapyramidal syndrome drug induced. 7. Status post mechanical fall. 8. Right hand pain. 9. Nicotine dependency with withdrawal. 10. Schizoaffective disorder bipolar type. 11. Major depressive disorder. 12. Neuropathic pain. DISCHARGE MEDICATIONS: See medication reconciliation list. DISCHARGE INSTRUCTIONS: The patient was discharged to [facility]- [facility]. Curtis Gavin D.O. [facility]PAngel DR: Ifrah JOB#: [id number] CC: OTONIEL
== END 2017-06-27 14:22 | DRG 885 ==
LOC: EMR 04:48 → 4E 08:52 → EDBEDREQ 09:15 → 2E 06-22 13:31 → 4E 06-23 15:00
DX: F25.0 Schizoaffective disorder, bipolar type (principal); G62.9 Polyneuropathy, unspecified; I10 Essential (primary) hypertension; F17.203 Nicotine dependence unspecified, with withdrawal; N48.33 Priapism, drug-induced; N39.0 Urinary tract infection, site not specified; G24.01 Drug induced subacute dyskinesia; R45.1 Restlessness and agitation; J44.9 Chronic obstructive pulmonary disease, unspecified; G89.4 Chronic pain syndrome; M79.641 Pain in right hand; G40.909 Epilepsy, unspecified, not intractable, without status epilepticus; F32.9 Major depressive disorder, single episode, unspecified; Z76.5 Malingerer [conscious simulation]; F43.10 Post-traumatic stress disorder, unspecified; Z87.820 Personal history of traumatic brain injury; F19.21 Other psychoactive substance dependence, in remission; Z88.8 Allergy status to other drugs, medicaments and biological substances; T43.215A Adverse effect of selective serotonin and norepinephrine reuptake inhibitors, initial encounter; Z99.3 Dependence on wheelchair; Z91.81 History of falling; M25.561 Pain in right knee; R26.2 Difficulty in walking, not elsewhere classified
CPT/HCPCS: 36415; 70450; 80048; 80053; 80299; 80307; 80329; 81001; 82962; 84443; 85025; 87081; 94640; 94760; 99285

== ENCOUNTER 2017-07-26 10:12 | Inpatient (IN) | payer MEDICARE, OTHER ==
[~2017-07-26] VITALS: Ht 175.3 cm; Wt 72.6 kg
[~2017-07-26 10:12] MED LIST changes: +BENADRYL25 M3 PO; +LACTULOSE20 GM/301 ORAL; +NORCO 5-325 TA1 EACH ORAL; +PATANOL1 DROP OD; +RESTORIL15 MG ORAL; +TRAZODONE HCL150 MG ORAL; +UNOBMED
[2017-07-26 10:29] VITALS: BP 120/75
[2017-07-26] MEDS ORDERED: DiphenhydrAMINE 50mg/ml Inj IVP ONE (10:45)
[2017-07-26 11:03] LABS: BASOPHILS % (AUTO) 0.7 % (0.0-2.0); EOSINOPHILS % (AUTO) 1.3 % (0.0-3.0); HEMATOCRIT 46.4 % (42.0-52.0); HEMOGLOBIN 16.4 G/DL (14.2-18.0); LYMPHOCYTES % (AUTO) 11.2 % (20.0-45.0); MEAN CORPUSCULAR VOLUME 96 FL (80-99); MONOCYTES % (AUTO) 5.9 % (1.0-10.0); NEUTROPHILS % (AUTO) 80.8 % (45.0-75.0); PLATELET COUNT 253 K/UL (150-450); RED BLOOD COUNT 4.85 M/UL (4.70-6.10); RED CELL DISTRIBUTION WIDTH 11.3 % (11.6-14.8); WHITE BLOOD COUNT 10.7 K/UL (4.8-10.8)
[2017-07-26 11:10] LABS: ANION GAP 9 mmol/L (5-15); BLOOD UREA NITROGEN 12 mg/dL (7-18); CALCIUM 9.1 MG/DL (8.5-10.1); CARBON DIOXIDE 26 MMOL/L (21-32); CHLORIDE 104 MMOL/L (98-107); CREATININE 0.8 MG/DL (0.55-1.30); SODIUM 139 MMOL/L (136-145)
--- NOTE | 2017-07-26 11:23 | Diagnostic Imaging Report ---
Indication: Right forearm pain Technique: XRAY Forearm 2v R Comparison: None Findings: There is no acute fracture or dislocation. Bone mineralization is normal. Soft tissues are grossly unremarkable. Impression: No acute osseous abnormality.
[2017-07-26 11:27] LABS: ALANINE AMINOTRANSFERASE 20 U/L (12-78); ALBUMIN 3.8 G/DL (3.4-5.0); ALBUMIN/GLOBULIN RATIO 1.2 (1.0-2.7); ALKALINE PHOSPHATASE 66 U/L (46-116); ASPARTATE AMINO TRANSFERASE 15 U/L (15-37); BILIRUBIN,TOTAL 0.2 MG/DL (0.2-1.0); CREATINE KINASE 83 U/L (26-308)
[2017-07-26 11:57] LABS: APPEARANCE,URINE CLEAR; BILIRUBIN, URINE NEGATIVE (NEGATIVE); COLOR,URINE PALE YELLOW; GLUCOSE, URINE (UA) NEGATIVE (NEGATIVE); KETONES,URINE NEGATIVE (NEGATIVE); LEUKOCYTE ESTERASE ,URINE NEGATIVE (NEGATIVE); NITRITE,URINE NEGATIVE (NEGATIVE); PH,URINE 7 (4.5-8.0); PROTEIN,URINE NEGATIVE (NEGATIVE); UROBILINOGEN,URINE NORMAL MG/DL (0.0-1.0)
[2017-07-26 12:30] VITALS: BP 103/57
[2017-07-26 14:30] VITALS: BP 107/62
--- NOTE | 2017-07-26 15:05 | Emergency Room Report ---
History of Present Illness General Chief Complaint: Multiple Trauma/Fall Source: Patient, EMS Present Illness HPI The patient presents after having falling episodes. He states his coordination is poor. He's had multiple falls in the past. He is undergoing physical therapy for weakness in his legs (polyneuropathy). Most recently he fell onto his right forearm. He feels he needs to get braces on his forearm at this time. No evaluation has been undertaken after this fall. He denies any head trauma. The patient's states she's undergone CT and MRI recent past with negative results. The patient is on antipsychotic medications. Pain rated 5/10 , constant, R forearm, not radiating, aching. No numbness. Although the patient has a history of seizures, he is on medication and no seizure activity was noted. Alleged history of Parkinson's disease. Also h/o COPD/asthma. Patient denied SI or HI to me (although apparently he claimed this to RN - stated that he had taken pills in the past. Also stated to RN that he wanted to harm others, though did not elaborated a plan.) No chest pain, productive cough, NVD, dysuria, skin rashes, headache. Allergies: Coded Allergies: CHLORPROMAZINE (Verified Allergy, Unknown, 04/20/17) DIVALPROEX SODIUM (Verified Allergy, Unknown, 04/17/17) FISH CONTAINING PRODUCTS (Verified Allergy, Unknown, 06/20/17) Patient History Past Medical History: see triage record Social History: Reports: smoking, alcohol use - prior Social History Narrative from B and C Reviewed Nursing Documentation: PMH: Agreed, PSxH: Agreed Nursing Documentation-PMH Hx Cardiac Problems: Yes Hx Hypertension: Yes Hx Asthma: Yes Hx COPD: Yes Hx Cancer: No Hx Gastrointestinal Problems: No Hx Neurological Problems: Yes Hx Parkinson's Disease: Yes Hx Seizures: Yes Hx Epilepsy: Yes Hx Peripheral Neuropathy: Yes Hx Head Trauma: Yes Hx Dizziness: Yes Hx Syncope: Yes Hx Headaches: Yes Hx Weakness: Yes Physical Exam Vital Signs Date Time Temp Pulse Resp B/P (MAP) Pulse Ox O2 Delivery O2 Flow Rate FiO2 07/26/17 10:12 98.2 88 16 124/74 98 Room Air 98.2 07/26/17 10:29 2.0 Neurologic: other - Tardive dyskinesia, oriented Medical Decision Making Diagnostic Impression: Primary Impression: Falling episodes Additional Impressions: Schizophrenia Qualified Codes: F20.9 - Schizophrenia, unspecified Tardive dyskinesia Contusion of right forearm Qualified Codes: S50.11XA - Contusion of right forearm, initial encounter Subtherapeutic anticoagulation ER Course The patient presents after multiple falling episodes. The place where he lives at this time is unable to deal with the fact that he has multiple falling episodes. Apparently there is been a recent evaluation with CT and MRI. He does have poor coordination at this time. We need to exclude a fracture of the right forearm in addition to that we need to evaluate his electrolytes. This could have been an unwitnessed seizure, but this is less likely. He denied SI and HI to me although reported these to RN. CBC and H/H unremarkable. Xray R forearm without fracture. Improved with benadryl, but still unsteady on feet. Arnaldo placed by tech. Position excellent and neurovasc normal as checked by me. Admit med Dr Frost. Laboratory Tests Test 07/26/17 10:45 07/26/17 11:15 07/26/17 11:50 White Blood Count 10.7 K/UL (4.8-10.8) Red Blood Count 4.85 M/UL (4.70-6.10) Hemoglobin 16.4 G/DL (14.2-18.0) Hematocrit 46.4 % (42.0-52.0) Mean Corpuscular Volume 96 FL (80-99) Mean Corpuscular Hemoglobin 33.7 PG (27.0-31.0) H Mean Corpuscular Hemoglobin Concent 35.3 G/DL (32.0-36.0) Red Cell Distribution Width 11.3 % (11.6-14.8) L Platelet Count 253 K/UL (150-450) Mean Platelet Volume 8.1 FL (6.5-10.1) Neutrophils (%) (Auto) 80.8 % (45.0-75.0) H Lymphocytes (%) (Auto) 11.2 % (20.0-45.0) L Monocytes (%) (Auto) 5.9 % (1.0-10.0) Eosinophils (%) (Auto) 1.3 % (0.0-3.0) Basophils (%) (Auto) 0.7 % (0.0-2.0) Sodium Level 139 MMOL/L (136-145) Potassium Level 4.0 MMOL/L (3.5-5.1) Chloride Level 104 MMOL/L (98-107) Carbon Dioxide Level 26 MMOL/L (21-32) Anion Gap 9 mmol/L (5-15) Blood Urea Nitrogen 12 mg/dL (7-18) Creatinine 0.8 MG/DL (0.55-1.30) Estimate Glomerular Filtration Rate > 60 mL/min (>60) Glucose Level 92 MG/DL (74-106) Calcium Level 9.1 MG/DL (8.5-10.1) Total Bilirubin 0.2 MG/DL (0.2-1.0) Aspartate Amino Transferase (AST) 15 U/L (15-37) Alanine Aminotransferase (ALT) 20 U/L (12-78) Alkaline Phosphatase 66 U/L (46-116) Total Creatine Kinase 83 U/L (26-308) Total Protein 6.9 G/DL (6.4-8.2) Albumin 3.8 G/DL (3.4-5.0) Globulin 3.1 g/dL Albumin/Globulin Ratio 1.2 (1.0-2.7) Thyroid Stimulating Hormone (TSH) 1.414 uiU/mL (0.358-3.740) Salicylates Level 4.3 ug/mL (2.8-20) Acetaminophen Level < 2 MCG/ML (10-30) L Serum Alcohol < 3 mg/dL Urine Color Pale yellow Urine Appearance Clear Urine pH 7 (4.5-8.0) Urine Specific Story 1.005 (1.005-1.035) Urine Protein Negative (NEGATIVE) Urine Glucose (UA) Negative (NEGATIVE) Urine Ketones Negative (NEGATIVE) Urine Occult Blood Negative (NEGATIVE) Urine Nitrite Negative (NEGATIVE) Urine Bilirubin Negative (NEGATIVE) Urine Urobilinogen Normal MG/DL (0.0-1.0) Urine Leukocyte Esterase Negative (NEGATIVE) Urine Opiates Screen Negative (NEGATIVE) Urine Barbiturates Screen Negative (NEGATIVE) Phencyclidine (PCP) Screen Negative (NEGATIVE) Urine Amphetamines Screen Negative (NEGATIVE) Urine Benzodiazepines Screen Negative (NEGATIVE) Urine Cocaine Screen Negative (NEGATIVE) Urine Marijuana (THC) Screen Negative (NEGATIVE) Carbamazepine (Tegretol) Level 3.2 ug/mL (4.0-12.0) L Rhythm Strip Diag. Results EP Interpretation: yes Rhythm: NSR, no PVC's, no ectopy Other X-Ray Diagnostic Results Other X-Ray Diagnostic Results : # of Views/Limited Vs Complete: 3 View Indication: Pain EP Interpretation: Yes Interpretation: no dislocation, no soft tissue swelling, no fractures Impression: No acute disease Electronically Signed by: Axel Cardona MD Last Vital Signs Date Time Temp Pulse Resp B/P (MAP) Pulse Ox O2 Delivery O2 Flow Rate FiO2 07/26/17 17:10 64 18 120/68 97 Nasal Cannula 2.0 07/26/17 10:29 97.7 97.7 Status: improved Disposition: ADMITTED INPATIENT Condition: Serious Referrals: JUAN FROST (PCP) Axel Cardona M.D. Jul 26, 2017 15:05
[2017-07-26 17:10] VITALS: BP 120/68
--- NOTE | 2017-07-26 17:13 | History & Physical ---
History and Physical History & Physicial JOB ID [id number] Job Tellez Jul 26, 2017 17:13
[2017-07-26 19:30] VITALS: BP 134/74
[2017-07-26 21:04] VITALS: BP 123/74
[2017-07-26] MEDS ORDERED: LORazepam 0.5mg tab ORAL PRN (22:00)
[2017-07-26] MEDS ORDERED: Albuterol 90mcg Inhaler 8gm INH PRN (22:00)
[2017-07-26] MEDS ORDERED: Mylanta II UD 30ml ORAL PRN (22:00)
[2017-07-26] MEDS ORDERED: Nitroglycerin Subl 0.4mg tab SL SCH (22:00)
[2017-07-26] MEDS ORDERED: Miralax 17gm pkt ORAL PRN (22:00)
[2017-07-26] MEDS: Morphine Sulfate 2mg/ml Inj IVP PRN (23:59)
[2017-07-27] MEDS ORDERED: Mylanta II UD 30ml ORAL PRN (00:15)
[2017-07-27 00:23] VITALS: BP 122/78
[2017-07-27] MEDS ORDERED: Nitroglycerin Subl 0.4mg tab SL PRN (00:30)
[2017-07-27] MEDS: D5 1/2NS 1,000 ML IV SCH ×2 (02:08→16:43)
[2017-07-27 04:00] VITALS: BP 120/76
[2017-07-27] MEDS: QUEtiapine 200mg tab ORAL SCH ×4 (05:51→23:23)
[2017-07-27 07:23] LABS: ANION GAP 6 mmol/L (5-15); BLOOD UREA NITROGEN 12 mg/dL (7-18); CALCIUM 8.7 MG/DL (8.5-10.1); CARBON DIOXIDE 28 MMOL/L (21-32); CHLORIDE 108 MMOL/L (98-107); CREATININE 0.8 MG/DL (0.55-1.30); POTASSIUM 3.9 MMOL/L (3.5-5.1); SODIUM 141 MMOL/L (136-145)
[2017-07-27 07:48] LABS: BASOPHILS % (AUTO) 1.2 % (0.0-2.0); EOSINOPHILS % (AUTO) 3.1 % (0.0-3.0); HEMATOCRIT 45.1 % (42.0-52.0); LYMPHOCYTES % (AUTO) 36.5 % (20.0-45.0); MEAN CORPUSCULAR VOLUME 97 FL (80-99); MONOCYTES % (AUTO) 7.9 % (1.0-10.0); NEUTROPHILS % (AUTO) 51.4 % (45.0-75.0); PLATELET COUNT 227 K/UL (150-450); RED BLOOD COUNT 4.67 M/UL (4.70-6.10); RED CELL DISTRIBUTION WIDTH 11.1 % (11.6-14.8); WHITE BLOOD COUNT 6.2 K/UL (4.8-10.8)
[2017-07-27 08:00] VITALS: BP 124/64
[2017-07-27] MEDS: Lactulose 20gm/30ml UDC ORAL SCH (08:35)
[2017-07-27] MEDS: carBAMazepine 200mg tab ORAL SCH ×4 (08:35→18:39)
[2017-07-27] MEDS: Aspirin Baby 81mg ORAL SCH (08:36)
[2017-07-27] MEDS: Docusate 100mg cap ORAL SCH (08:36)
[2017-07-27] MEDS: Benztropine 1mg tab ORAL SCH ×2 (08:36→18:40)
[2017-07-27] MEDS: Heparin 5000 units/ml inj SUBQ SCH ×2 (08:39→20:54)
[2017-07-27] MEDS: Nephrovite tab (Rena-Vite) ORAL SCH (08:44)
--- NOTE | 2017-07-27 08:45 | General Progress Note ---
Assessment/Plan Assessment/Plan (1) Epilepsy (2) Neuropathic pain (3) Chronic pain syndrome (4) Right knee pain Pt will be continued on Morphine. D/w Dr. Dye and he concurred. Subjective Date patient seen: Jul 27, 2017 Time patient seen: 07:15 - am Allergies: Coded Allergies: CHLORPROMAZINE (Verified Allergy, Unknown, 04/20/17) DIVALPROEX SODIUM (Verified Allergy, Unknown, 04/17/17) FISH CONTAINING PRODUCTS (Verified Allergy, Unknown, 06/20/17) Subjective REVIEW OF SYSTEMS: Denies rash, fever, chills, sweating, dizziness, drowsiness, blurred vision, sore throat, or change in his weight. No shortness of breath. No nausea, vomiting, diarrhea, or blood in stool or urine. No bowel or bladder incontinence. No dysuria. He is complaining of generalized body pain. SUBJECTIVE: Patient is a known patient admitted under the care of Dr. Kaufman with unchanged pain. Pain has been stable on the Morphine 2mg IV Q4H PRN. Objective Last 24 Hour Vital Signs Date Time Temp Pulse Resp B/P (MAP) Pulse Ox O2 Delivery O2 Flow Rate FiO2 07/27/17 04:00 98.4 75 20 120/76 97 Nasal Cannula 2.0 98.4 07/27/17 00:29 98.2 07/27/17 00:23 98.2 74 20 122/78 96 Nasal Cannula 2.0 98.2 07/26/17 23:59 98.1 07/26/17 21:04 98.1 72 20 123/74 96 Nasal Cannula 2.0 98.1 07/26/17 20:10 97.8 71 17 134/74 99 Nasal Cannula 2.0 97.8 07/26/17 19:30 97.8 71 17 134/74 99 Nasal Cannula 2.0 97.8 07/26/17 17:10 64 18 120/68 97 Nasal Cannula 2.0 07/26/17 14:30 66 18 107/62 98 Nasal Cannula 2.0 07/26/17 12:30 72 18 103/57 98 Nasal Cannula 2.0 07/26/17 10:29 97.7 84 18 120/75 96 Nasal Cannula 2.0 97.7 07/26/17 10:12 98.2 88 16 124/74 98 Room Air 98.2 Intake and Output 07/26/17 07/27/17 19:00 07:00 Intake Total 300 ml 640 ml Balance 300 ml 640 ml Intake Oral 400 ml IV Total 300 ml 240 ml # Voids 2 Laboratory Tests 07/26/17 10:45: White Blood Count 10.7, Red Blood Count 4.85, Hemoglobin 16.4, Hematocrit 46.4, Mean Corpuscular Volume 96, Mean Corpuscular Hemoglobin 33.7H, Mean Corpuscular Hemoglobin Concent 35.3, Red Cell Distribution Width 11.3L, Platelet Count 253, Mean Platelet Volume 8.1, Neutrophils (%) (Auto) 80.8H, Lymphocytes (%) (Auto) 11.2L, Monocytes (%) (Auto) 5.9, Eosinophils (%) (Auto) 1.3, Basophils (%) (Auto ) 0.7, Sodium Level 139, Potassium Level 4.0, Chloride Level 104, Carbon Dioxide Level 26, Anion Gap 9, Blood Urea Nitrogen 12, Creatinine 0.8, Estimat Glomerular Filtration Rate > 60, Glucose Level 92, Calcium Level 9.1, Total Bilirubin 0.2, Aspartate Amino Transf (AST/SGOT) 15, Alanine Aminotransferase ( ALT/SGPT) 20, Alkaline Phosphatase 66, Total Creatine Kinase 83, Total Protein 6.9, Albumin 3.8, Globulin 3.1, Albumin/Globulin Ratio 1.2, Thyroid Stimulating Hormone (TSH) 1.414, Salicylates Level 4.3, Acetaminophen Level < 2L, Serum Alcohol < 3 07/26/17 11:15: Urine Color Pale yellow, Urine Appearance Clear, Urine pH 7, Urine Specific [place] 1.005, Urine Protein Negative, Urine Glucose (UA) Negative, Urine Ketones Negative, Urine Occult Blood Negative, Urine Nitrite Negative, Urine Bilirubin Negative, Urine Urobilinogen Normal, Urine Leukocyte Esterase Negative , Urine Opiates Screen Negative, Urine Barbiturates Screen Negative, Phencyclidine (PCP) Screen Negative, Urine Amphetamines Screen Negative, Urine Benzodiazepines Screen Negative, Urine Cocaine Screen Negative, Urine Marijuana (THC) Screen Negative 07/26/17 11:50: Carbamazepine (Tegretol) Level 3.2L 07/27/17 05:30: White Blood Count 6.2, Red Blood Count 4.67L, Hemoglobin 16.0, Hematocrit 45.1, Mean Corpuscular Volume 97, Mean Corpuscular Hemoglobin 34.1H, Mean Corpuscular Hemoglobin Concent 35.3, Red Cell Distribution Width 11.1L, Platelet Count 227, Mean Platelet Volume 8.3, Neutrophils (%) (Auto) 51.4, Lymphocytes (%) (Auto) 36.5, Monocytes (%) (Auto) 7.9, Eosinophils (%) (Auto) 3.1H, Basophils (%) (Auto ) 1.2, Sodium Level 141, Potassium Level 3.9, Chloride Level 108H, Carbon Dioxide Level 28, Anion Gap 6, Blood Urea Nitrogen 12, Creatinine 0.8, Estimat Glomerular Filtration Rate > 60, Glucose Level 84, Calcium Level 8.7 Height (Feet): 5 Height (Inches): 9.00 Weight (Pounds): 160 Objective GENERAL: Alert, awake, and oriented. LUNGS: Clear. HEART: S1 S2 Regular. ABDOMEN: Benign. EXTREMITIES: No cyanosis. No clubbing. NEUROLOGIC: weakness noted in extremities. EMMA AGUILAR Jul 27, 2017 08:45
--- NOTE | 2017-07-27 09:30 | History and Physical Report ---
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 Neurology to evaluate the patient. PAST MEDICAL HISTORY: As noted above. PAST SURGICAL HISTORY: None noted. ALLERGIES: valproic acid, fish-containing products. REVIEW OF SYSTEMS: CONSTITUTIONAL: No fevers, chills, or night sweats. SKIN: No rashes, bumps, or itching. HEENT: No headache, hearing or vision changes. BREASTS: No lumps, pain, or discharge. PULMONARY: No cough, sputum, or shortness of breath. GASTROINTESTINAL: No nausea, vomiting, or diarrhea. GENITOURINARY: No dysuria, frequency, or urgency. MUSCULOSKELETAL: No joint swelling, muscle pain, or trauma. PHYSICAL EXAMINATION: VITAL SIGNS: Reviewed. GENERAL: PULMONARY: CARDIOVASCULAR: . No S3, S4. ABDOMEN: Soft, nontender, and nondistended. EXTREMITIES: No cyanosis, swelling, or edema. LABORATORY DATA: platelet count 253,000. IMAGING: Forearm x-ray done today shows no acute osseous abnormalities . ASSESSMENT AND RECOMMENDATIONS: 1. Trip and fall Neurology team, Dr. Espinoza has been consulted for evaluation. Continue to closely monitor. 2. Hypertension. Continue the patient's home medications. Currently blood pressure has actually been improved, slightly hypotensive . 3. Neutrophilia, likely secondary to reactive process. Continue to closely monitor. 4. Asthma, currently in mild exacerbation closely monitor. 5. Weakness. Currently to be evaluated by neurological service. 6. Job Tellez M.D. DR: Tom JOB#: [id number] CC:
[2017-07-27] MEDS: Morphine Sulfate 2mg/ml Inj IVP PRN ×3 (10:32→20:59)
--- NOTE | 2017-07-27 12:56 | Neurology Progress Note ---
Objective Physical Exam Last Vital Signs Date Time Temp Pulse Resp B/P (MAP) Pulse Ox O2 Delivery O2 Flow Rate FiO2 07/27/17 11:02 97.2 07/27/17 08:00 79 23 124/64 99 Room Air 07/27/17 04:00 2.0 Laboratory Tests Test 07/27/17 05:30 White Blood Count 6.2 K/UL (4.8-10.8) Red Blood Count 4.67 M/UL (4.70-6.10) L Hemoglobin 16.0 G/DL (14.2-18.0) Hematocrit 45.1 % (42.0-52.0) Mean Corpuscular Volume 97 FL (80-99) Mean Corpuscular Hemoglobin 34.1 PG (27.0-31.0) H Mean Corpuscular Hemoglobin Concent 35.3 G/DL (32.0-36.0) Red Cell Distribution Width 11.1 % (11.6-14.8) L Platelet Count 227 K/UL (150-450) Mean Platelet Volume 8.3 FL (6.5-10.1) Neutrophils (%) (Auto) 51.4 % (45.0-75.0) Lymphocytes (%) (Auto) 36.5 % (20.0-45.0) Monocytes (%) (Auto) 7.9 % (1.0-10.0) Eosinophils (%) (Auto) 3.1 % (0.0-3.0) H Basophils (%) (Auto) 1.2 % (0.0-2.0) Sodium Level 141 MMOL/L (136-145) Potassium Level 3.9 MMOL/L (3.5-5.1) Chloride Level 108 MMOL/L (98-107) H Carbon Dioxide Level 28 MMOL/L (21-32) Anion Gap 6 mmol/L (5-15) Blood Urea Nitrogen 12 mg/dL (7-18) Creatinine 0.8 MG/DL (0.55-1.30) Estimat Glomerular Filtration Rate > 60 mL/min (>60) Glucose Level 84 MG/DL (74-106) Calcium Level 8.7 MG/DL (8.5-10.1) Impression/Recommendations Recommendations #[id number] ABBEY GAN Jul 27, 2017 12:56
--- NOTE | 2017-07-27 13:49 | General Progress Note ---
Assessment/Plan Problem List: (1) HTN (hypertension) ICD Codes: I10 - Essential (primary) hypertension SNOMED: 96172466 (2) Psychiatric disorder ICD Codes: F99 - Mental disorder, not otherwise specified SNOMED: 97191122, 990589819 (3) Seizure disorder ICD Codes: G40.909 - Epilepsy, unspecified, not intractable, without status epilepticus SNOMED: 964405008 (4) Chronic pain ICD Codes: G89.29 - Other chronic pain SNOMED: 58103036 Status: unchanged Assessment/Plan ot pt diet seizure control pain control psyc eval cbc bmp am psyc transfer Subjective Constitutional: Reports: weakness Allergies: Coded Allergies: CHLORPROMAZINE (Verified Allergy, Unknown, 04/20/17) DIVALPROEX SODIUM (Verified Allergy, Unknown, 04/17/17) FISH CONTAINING PRODUCTS (Verified Allergy, Unknown, 06/20/17) All Systems: reviewed and negative except above Subjective calm sl confused wants to go to psyc Objective Last 24 Hour Vital Signs Date Time Temp Pulse Resp B/P (MAP) Pulse Ox O2 Delivery O2 Flow Rate FiO2 07/27/17 11:02 97.2 07/27/17 10:32 97.2 07/27/17 08:00 97.2 79 23 124/64 99 Room Air 97.2 07/27/17 04:00 98.4 75 20 120/76 97 Nasal Cannula 2.0 98.4 07/27/17 00:23 98.2 74 20 122/78 96 Nasal Cannula 2.0 98.2 07/26/17 23:59 98.1 07/26/17 21:04 98.1 72 20 123/74 96 Nasal Cannula 2.0 98.1 07/26/17 20:10 97.8 71 17 134/74 99 Nasal Cannula 2.0 97.8 07/26/17 19:30 97.8 71 17 134/74 99 Nasal Cannula 2.0 97.8 07/26/17 17:10 64 18 120/68 97 Nasal Cannula 2.0 07/26/17 14:30 66 18 107/62 98 Nasal Cannula 2.0 Intake and Output 07/26/17 07/27/17 19:00 07:00 Intake Total 300 ml 700 ml Balance 300 ml 700 ml Intake Oral 400 ml IV Total 300 ml 300 ml # Voids 2 Laboratory Tests 07/27/17 05:30: White Blood Count 6.2, Red Blood Count 4.67L, Hemoglobin 16.0, Hematocrit 45.1, Mean Corpuscular Volume 97, Mean Corpuscular Hemoglobin 34.1H, Mean Corpuscular Hemoglobin Concent 35.3, Red Cell Distribution Width 11.1L, Platelet Count 227, Mean Platelet Volume 8.3, Neutrophils (%) (Auto) 51.4, Lymphocytes (%) (Auto) 36.5, Monocytes (%) (Auto) 7.9, Eosinophils (%) (Auto) 3.1H, Basophils (%) (Auto ) 1.2, Sodium Level 141, Potassium Level 3.9, Chloride Level 108H, Carbon Dioxide Level 28, Anion Gap 6, Blood Urea Nitrogen 12, Creatinine 0.8, Estimat Glomerular Filtration Rate > 60, Glucose Level 84, Calcium Level 8.7 Height (Feet): 5 Height (Inches): 9.00 Weight (Pounds): 160 General Appearance: alert EENT: normal ENT inspection Neck: normal alignment Cardiovascular: normal peripheral pulses, normal rate, regular rhythm Respiratory/Chest: chest wall non-tender, lungs clear, normal breath sounds Abdomen: normal bowel sounds, non tender, soft Extremities: normal inspection Edema: no edema noted Arm (L), no edema noted Arm (R), no edema noted Leg (L), no edema noted Leg (R), no edema noted Pedal (L), no edema noted Pedal (R), no edema noted Generalized Neurologic: responsive, motor weakness Skin: normal pigmentation, warm/dry JUAN FROST Jul 27, 2017 13:49
[2017-07-27 16:00] VITALS: BP 143/73
[2017-07-27] MEDS: LORazepam Inj 2mg/ml 1ml IV PRN (18:47)
[2017-07-27 19:49] VITALS: BP 87/49
--- NOTE | 2017-07-27 20:00 | Consultation ---
DATE OF CONSULTATION: 07/27/2017 NEUROLOGICAL CONSULTATION CONSULTING PHYSICIAN: Ghassan Espinoza M.D. REQUESTING PHYSICIAN: Curtis Gavin D.O. HISTORY OF PRESENT ILLNESS: This is a 42-year-old man seen previously on several occasions in this hospital, now was admitted after having two episodes of fall, which he attributed to poor coordination. The patient informed me that there was no loss of consciousness, he was clumsy, fell injuring his right upper extremity. There was no head injury. He was admitted with pain in his right arm rated 5/10. He also informed me of having occasional episodes of staring that he attributes to previously diagnosed seizure disorder. Following current admission, vital signs were stable. He was afebrile. His x-ray of the right forearm revealed no fracture and no dislocation. Lab work included a normal CBC study. Chemistry panel, unremarkable including TSH and liver function. Toxicology panel was negative with carbamazepine level of 3.2 and salicylate 4.3. Since admission till present time, there was no further paroxysmal event. The patient is known to have a chronic psychiatric disorder. He was diagnosed with PTSD. He is status post severe head trauma about six years ago, developing abnormal gait, becoming wheelchair bound, developed what seems the partial complex seizures with secondary generalization although pseudoseizures were also suspected. His previous CT of the brain and MRI of the brain revealed no acute intracranial abnormalities. The patient has evidence of chronic pain syndrome and benzodiazepine dependency. PAST MEDICAL HISTORY: Chronic psychiatric disorder, peripheral neuropathy, psychiatric disorder, chronic pain syndrome, and generalized dyskinesia following drug induced. MEDICATIONS: Current treatment list included Tylenol as needed, albuterol, aspirin, Cogentin 2 mg b.i.d., Tegretol 200 mg t.i.d., Benadryl, Colace, folate, gabapentin 300 mg t.i.d., [place] q.6 p.r.n., lactulose Lamictal 50 mg twice a day, Keppra 1500 b.i.d., lorazepam, nicotine patch, , Patanol eye drops, Seroquel 200 mg q.8 hours, temazepam, and trazodone. ALLERGIES: Depakote, fish containing products, and chlorpromazine. REVIEW OF SYMPTOMS: The patient indicated that he is back to his normal, although he still has discomfort and pain in his right forearm. He has intermittent staring episodes. No chest pain. No palpitations. No respiratory problems. Denies abdominal pain or discomfort. He has no urinary incontinence, but he continued to have involuntary "parkinsonian" movement of arms and legs. Unable to ambulate, wheelchair-bound. PHYSICAL EXAMINATION: GENERAL: This is a well-developed, well-nourished man, not in acute distress, lying comfortably in bed. HEENT: Head, normocephalic. No evidence of trauma. Eyes, ears, and throat are clear. NECK: Supple. No meningeal signs. MUSCULOSKELETAL: Unremarkable except bruise on the right arm. Peripheral pulses 1+ symmetric. MENTAL STATUS: The patient is alert and oriented x3 with no evidence of aphasia or apraxia. Speech somewhat dysarthric. Follows commands. CRANIAL NERVE II: Pupils both responding to light and accommodation. Extraocular movement intact. No nystagmus. CRANIAL NERVE V: Normal corneal responses. CRANIAL NERVE VII: No facial asymmetry. CRANIAL NERVE VIII: Grossly normal hearing. CRANIAL NERVES IX THROUGH XII: Tongue is in midline. Symmetric palate elevation. MOTOR EXAMINATION: Revealed a normal muscle strength in both upper extremities. Poor efforts in both lower extremities, but able to lift against the gravity both lower extremities during which the patient developed involuntary dyskinesia. Deep tendon reflexes 1+ bilaterally with symmetric plantar responses flexor. SENSORY EXAMINATION: Normal to pinprick with reduction in proprioception in both feet. IMPRESSION: 1. History of chronic seizure disorder, stable. 2. Rule out pseudo seizure. 3. Chronic psychiatric disorder. 4. Tardive dyskinesia, probably drug-induced. 5. Non-ambulatory status post severe head trauma. 6. Hypertension. 7. Bronchial asthma. DISCUSSION: The patient continued to be on a polypharmacy. I will recommend to adjust Lamictal up to 100 b.i.d. while tapering Tegretol and eventually to taper off the Keppra. The patient would remain on monotherapy with Lamictal to cover underlying seizure activity ( proven). The patient has significant dyskinesia and not responding to Cogentin. He has balance issue and as such prone to have trauma. Precautions should be maintained while the patient is transferred from bed to wheelchair. Thank you for allowing me to see this interesting patient in neurological consultation. Ghassan Evangelina Espinoza DR: REBEKA JOB#: [id number] CC:
--- NOTE | 2017-07-27 20:43 | Consultation ---
History of Present Illness General Date patient seen: Jul 26, 2017 Chief Complaint: Multiple Trauma/Fall Present Illness HPI 42-year-old manwith hx of depression and schizophrenia was admitted after having two episodes of fall. the pt is agitated and pw td due to admins of antipsychotics. the pt was cooperative and calm during the eval no si hi Allergies: Coded Allergies: CHLORPROMAZINE (Verified Allergy, Unknown, 04/20/17) DIVALPROEX SODIUM (Verified Allergy, Unknown, 04/17/17) FISH CONTAINING PRODUCTS (Verified Allergy, Unknown, 06/20/17) Medication History Scheduled Aspirin* (Aspirin*), 81 MG ORAL DAILY, (Reported) Benztropine Mesylate* (Benztropine Mesylate*), 2 MG PO BID, (Reported) Benztropine Mesylate* (Benztropine Mesylate*), 2 MG ORAL TWICE A DAY, (Reported) Carbamazepine (Tegretol*), 200 MG PO TID, (Reported) Docusate Sodium* (Colace*), 100 MG ORAL DAILY, (Reported) Gabapentin* (Gabapentin*), 300 MG ORAL EVERY 8 HOURS, (Reported) Lactulose (Lactulose*), 15 ML ORAL DAILY, (Reported) Lamotrigine (Lamictal), 50 MG ORAL TWICE A DAY, (Reported) Levetiracetam (Keppra), 1,500 MG ORAL EVERY 12 HOURS, (Reported) Multivitamin (Multi Vitamin Daily), 1 TAB ORAL DAILY, (Reported) Nicotine 14MG Patch* (Nicoderm Cq 14MG*), 1 EACH TD DAILY, (Reported) Nitroglycerin (Nitroglycerin), 0.4 MG SL PRN, (Reported) Olopatadine (Patanol), 1 DROP OD DAILY, (Reported) Quetiapine Fumarate* (Seroquel*), 200 MG ORAL EVERY 8 HOURS, (Reported) Trazodone* (Trazodone*), 50 MG ORAL BEDTIME, (Reported) Scheduled PRN Acetaminophen* (Acetaminophen 325MG Tablet*), 650 MG ORAL Q4H PRN for Fever/ Headache/Mild Pain, (Reported) Al Hydroxide/mg Hydroxide (Mag-Al Plus Suspension), 30 ML PO Q6HR PRN for prn, ( Reported) Albuterol Sulfate (Ventolin Hfa), 2 PUFFS INH EVERY 6 HOURS PRN for Shortness of Breath, (Reported) Diphenhydramine HCl (Benadryl), 50 MG PO QHS PRN for Itching, (Reported) Hydrocodone Bit/Acetaminophen 5-325* ([place] 5-325*), 1 TAB ORAL Q6H PRN for For Pain, (Reported) Lorazepam* (Ativan*), 0.5 MG ORAL Q6HR PRN for For Anxiety, (Reported) Polyethylene Glycol 3350* (Polyethylene Glycol 3350*), 17 GM ORAL BEDTIME PRN for Constipation, (Reported) Temazepam* (Restoril*), 15 MG ORAL BEDTIME PRN for Insomnia, (Reported) Miscellaneous Medications Folic Acid/Vitamin B Comp W-C (Lia-Ramona Tablet), 1 MG PO, (Reported) Unable to Obtain Medications (Unable To Obtain Meds), (Reported) Patient History History Provided By: Patient, Medical Record, PMD Healthcare decision maker N Resuscitation status Do Not Resuscitate Advanced Directive on File Past Medical/Surgical History Past Medical/Surgical History: (1) Syncope (2) SOB (shortness of breath) (3) Aspiration pneumonia (4) Tachycardia (5) Choreoathetosis (6) Hypoxia (7) Hip pain (8) Uncontrolled seizures (9) Recurrent knee pain (10) posttraumatc seizure disorder, exacerbation (11) COPD (chronic obstructive pulmonary disease) (12) chronic pain syndrom with drug seeking behavior (13) extrapyramidal syndrom, drug induced (14) chronic seizure disorder r/o pseudoseizures. (15) Priapism (16) ETOH abuse (17) 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 (18) UTI (urinary tract infection) (19) Epilepsia (20) Syncope (21) Subtherapeutic anticoagulation (22) Tardive dyskinesia (23) Schizophrenia (24) Contusion of right forearm (25) Falling episodes (26) Fall (27) Psychiatric disorder (28) Seizure disorder (29) HTN (hypertension) (30) Chronic pain Review of Systems Psychiatric: Reports: prior hx, anxiety, depressed feelings, emotional problems Physical Exam General Appearance: no apparent distress, alert, agitated Neurologic: alert, oriented x 3, responsive, depressed affect Last 24 Hour Vital Signs Date Time Temp Pulse Resp B/P (MAP) Pulse Ox O2 Delivery O2 Flow Rate FiO2 07/27/17 19:49 96.8 77 20 87/49 97 Room Air 96.8 07/27/17 17:12 97.2 07/27/17 16:42 97.2 07/27/17 16:00 98.2 93 20 143/73 97 Room Air 98.2 07/27/17 10:32 97.2 07/27/17 08:00 97.2 79 23 124/64 99 Room Air 97.2 07/27/17 04:00 98.4 75 20 120/76 97 Nasal Cannula 2.0 98.4 07/27/17 00:23 98.2 74 20 122/78 96 Nasal Cannula 2.0 98.2 07/26/17 23:59 98.1 07/26/17 21:04 98.1 72 20 123/74 96 Nasal Cannula 2.0 98.1 Intake and Output 07/26/17 07/27/17 19:00 07:00 Intake Total 300 ml 700 ml Balance 300 ml 700 ml Intake Oral 400 ml IV Total 300 ml 300 ml # Voids 2 Laboratory Tests Test 07/27/17 05:30 White Blood Count 6.2 K/UL (4.8-10.8) Red Blood Count 4.67 M/UL (4.70-6.10) L Hemoglobin 16.0 G/DL (14.2-18.0) Hematocrit 45.1 % (42.0-52.0) Mean Corpuscular Volume 97 FL (80-99) Mean Corpuscular Hemoglobin 34.1 PG (27.0-31.0) H Mean Corpuscular Hemoglobin Concent 35.3 G/DL (32.0-36.0) Red Cell Distribution Width 11.1 % (11.6-14.8) L Platelet Count 227 K/UL (150-450) Mean Platelet Volume 8.3 FL (6.5-10.1) Neutrophils (%) (Auto) 51.4 % (45.0-75.0) Lymphocytes (%) (Auto) 36.5 % (20.0-45.0) Monocytes (%) (Auto) 7.9 % (1.0-10.0) Eosinophils (%) (Auto) 3.1 % (0.0-3.0) H Basophils (%) (Auto) 1.2 % (0.0-2.0) Sodium Level 141 MMOL/L (136-145) Potassium Level 3.9 MMOL/L (3.5-5.1) Chloride Level 108 MMOL/L (98-107) H Carbon Dioxide Level 28 MMOL/L (21-32) Anion Gap 6 mmol/L (5-15) Blood Urea Nitrogen 12 mg/dL (7-18) Creatinine 0.8 MG/DL (0.55-1.30) Estimat Glomerular Filtration Rate > 60 mL/min (>60) Glucose Level 84 MG/DL (74-106) Calcium Level 8.7 MG/DL (8.5-10.1) Height (Feet): 5 Height (Inches): 9.00 Weight (Pounds): 160 Medications Current Medications Medications (Trade) Dose Ordered Sig/Sharon Route PRN Reason Start Time Stop Time Status Last Admin Dose Admin Acetaminophen (Tylenol) 650 mg Q4H PRN ORAL Fever/Headache/Mild Pain 07/26/17 22:00 08/25/17 21:59 Al Hydroxide/Mg Hydroxide (Mylanta II) 30 ml Q6H PRN ORAL Abdominal cramps 07/27/17 00:15 08/26/17 00:14 Albuterol Sulfate (Proventil MDI) 2 puff Q6H PRN INH Shortness of Breath 07/26/17 22:00 08/25/17 21:59 Aspirin (ASA) 81 mg DAILY ORAL 07/27/17 09:00 08/26/17 08:59 07/27/17 08:36 Benztropine Mesylate (Cogentin) 2 mg TWICE A DAY ORAL 07/27/17 09:00 08/26/17 08:59 07/27/17 18:40 Carbamazepine (TEGretol) 200 mg TID ORAL 07/26/17 22:30 08/25/17 22:29 07/27/17 18:39 Dextrose/Sodium Chloride 1,000 ml @ 60 mls/hr [id number] IV 07/26/17 23:00 08/25/17 22:59 07/27/17 16:43 Diphenhydramine HCl (Benadryl) 50 mg QHS PRN ORAL Itching 07/26/17 22:00 08/25/17 21:59 Docusate Sodium (Colace) 100 mg DAILY ORAL 07/27/17 09:00 08/26/17 08:59 07/27/17 08:36 Gabapentin (Neurontin) 300 mg EVERY 8 HOURS ORAL 07/26/17 22:30 08/25/17 22:29 07/27/17 13:33 Heparin Sodium (Porcine) (Heparin 5000 units/ml) 5,000 units EVERY 12 HOURS SUBQ 07/27/17 09:00 08/26/17 08:59 07/27/17 08:39 Lactulose (Cephulac) 10 gm DAILY ORAL 07/27/17 09:00 08/26/17 08:59 07/27/17 08:35 Lamotrigine (LaMICtal) 50 mg TWICE A DAY ORAL 07/27/17 09:00 08/26/17 08:59 07/27/17 18:47 Levetiracetam (Keppra) 1,500 mg EVERY 12 HOURS ORAL 07/26/17 22:30 08/25/17 22:29 07/27/17 08:35 Lorazepam (Ativan 2mg/ml 1ml) 1 mg Q4H PRN IV For Anxiety 07/27/17 14:00 08/03/17 13:59 07/27/17 18:47 Morphine Sulfate (Morphine Sulfate) 2 mg Q4H PRN IVP For Pain 07/26/17 22:00 08/02/17 21:59 07/27/17 16:42 Multivitamins (Multivitamins) 1 tab DAILY ORAL 07/27/17 09:00 08/26/17 08:59 07/27/17 08:36 Nitroglycerin (Ntg) 0.4 mg Q5M PRN SL Prn Chest Pain 07/27/17 00:30 08/26/17 00:29 Polyethylene Glycol (Miralax) 17 gm BEDTIME PRN ORAL Constipation 07/26/17 22:00 08/25/17 21:59 Quetiapine Fumarate (SEROquel) 200 mg EVERY 8 HOURS ORAL 07/26/17 22:30 08/25/17 22:29 07/27/17 13:33 Temazepam (Restoril) 15 mg BEDTIME PRN ORAL Insomnia 07/26/17 22:00 08/02/17 21:59 07/27/17 00:01 Trazodone HCl (Desyrel) 50 mg BEDTIME ORAL 07/27/17 21:00 08/26/17 20:59 Vitamin B Complex/ Vit C/Folic Acid (Nephrovite) 1 tab DAILY ORAL 07/27/17 09:00 08/26/17 08:59 07/27/17 08:44 Assessment/Plan Status: stable Assessment/Plan schizophrenia depression -cont current meds -provided carol ann/Monica Franklin M.D. Jul 27, 2017 20:43
--- NOTE | 2017-07-27 20:48 | General Progress Note ---
Assessment/Plan Status: stable Assessment/Plan schizophrenia chronic paranoid type mdd i do rec dc trazodone the pt is reluctant dc sitter Subjective Date patient seen: Jul 27, 2017 Neurologic/Psychiatric: Reports: anxiety, depressed, emotional problems Allergies: Coded Allergies: CHLORPROMAZINE (Verified Allergy, Unknown, 04/20/17) DIVALPROEX SODIUM (Verified Allergy, Unknown, 04/17/17) FISH CONTAINING PRODUCTS (Verified Allergy, Unknown, 06/20/17) Objective Last 24 Hour Vital Signs Date Time Temp Pulse Resp B/P (MAP) Pulse Ox O2 Delivery O2 Flow Rate FiO2 07/27/17 19:49 96.8 77 20 87/49 97 Room Air 96.8 07/27/17 17:12 97.2 07/27/17 16:42 97.2 07/27/17 16:00 98.2 93 20 143/73 97 Room Air 98.2 07/27/17 10:32 97.2 07/27/17 08:00 97.2 79 23 124/64 99 Room Air 97.2 07/27/17 04:00 98.4 75 20 120/76 97 Nasal Cannula 2.0 98.4 07/27/17 00:23 98.2 74 20 122/78 96 Nasal Cannula 2.0 98.2 07/26/17 23:59 98.1 07/26/17 21:04 98.1 72 20 123/74 96 Nasal Cannula 2.0 98.1 Intake and Output 07/26/17 07/27/17 19:00 07:00 Intake Total 300 ml 700 ml Balance 300 ml 700 ml Intake Oral 400 ml IV Total 300 ml 300 ml # Voids 2 Laboratory Tests 07/27/17 05:30: White Blood Count 6.2, Red Blood Count 4.67L, Hemoglobin 16.0, Hematocrit 45.1, Mean Corpuscular Volume 97, Mean Corpuscular Hemoglobin 34.1H, Mean Corpuscular Hemoglobin Concent 35.3, Red Cell Distribution Width 11.1L, Platelet Count 227, Mean Platelet Volume 8.3, Neutrophils (%) (Auto) 51.4, Lymphocytes (%) (Auto) 36.5, Monocytes (%) (Auto) 7.9, Eosinophils (%) (Auto) 3.1H, Basophils (%) (Auto ) 1.2, Sodium Level 141, Potassium Level 3.9, Chloride Level 108H, Carbon Dioxide Level 28, Anion Gap 6, Blood Urea Nitrogen 12, Creatinine 0.8, Estimat Glomerular Filtration Rate > 60, Glucose Level 84, Calcium Level 8.7 Height (Feet): 5 Height (Inches): 9.00 Weight (Pounds): 160 General Appearance: no apparent distress, alert Neurologic: alert, oriented x 3, responsive, normal mood/affect Monica Herbert M.D. Jul 27, 2017 20:48
[2017-07-27 20:49] VITALS: BP 114/74
[2017-07-27] MEDS ORDERED: TraZODone 50mg tab ORAL SCH (21:00)
--- NOTE | 2017-07-27 21:45 | Consultation ---
DATE OF CONSULTATION: 07/27/2017 CONSULTING PHYSICIAN: Wing Cervantes M.D. REQUESTING PHYSICIAN: Curtis Gavin D.O. HISTORY OF PRESENT ILLNESS: The patient is a 42-year-old male patient who was seen and assessed at bedside at [facility] on the 4th floor. The patient is very confused and disorganized. He has history of mood lability, agitation, and irritability. The reason why he came in is because he had multiple falling episodes at [facility]. He is irritable. He is agitated. He does have a lot of mood lability and confusion secondary to stress of his medical illness and that is why he does require daily psychiatric followup as requested by his attending physician, Dr. Curtis Gavin. As far as the patient's psychotropic medications on this admission, he is on trazodone 50 mg at bedtime. The patient is also on Lamictal 50 mg twice a day and Cogentin 2 mg twice a day. He is also on Seroquel 200 mg q.8 h. for mood lability. ALLERGIES: He has allergies to Thorazine, Depakote, and fish products. PSYCHIATRIC HISTORY: He has had multiple psychiatric admissions, specifically [facility] and attending psychiatrists of those facilities. SUBSTANCE ABUSE HISTORY: Denies any recent drug or alcohol use. STRENGTHS: He is motivated to get better and relatively healthy. WEAKNESSES: He is impulsive and he has no support system. FAMILY PSYCHIATRIC HISTORY: Denies. MENTAL STATUS EXAMINATION: He is a 42-year-old male. Appearance is disheveled. Attitude irritable and agitated. Affect is guarded and restricted. Intellect poor. Mood depressed and anxious. Motor activity, psychomotor agitation. Attention span is poor. Orientation x2, memory 3/3 with recall after 5 minutes delay with good memory. Insight and judgment is poor to fair. DIAGNOSES: 1. Bipolar 2, rule out schizoaffective, bipolar type. 2. Medical includes chronic obstructive pulmonary disease, neuropathy, psychosocial stressors, financial. PLAN: I am going to start this patient on a psychotropic medication regimen consisting of Lamictal 50 mg twice a day, also Seroquel 200 mg q.8 h., trazodone 50 mg at bedtime, Neurontin 300 mg three times a day. Provide 15 to 20 minutes supportive therapy and encourage him to interact appropriate with staff and other patients. Also Cogentin 2 mg twice a day and Tegretol 200 mg three times a day. Plan is to transfer to the medical psych unit at [facility] once he is psychiatrically cleared. Chart reviewed and discussed with staff. The patient seen and assessed at bedside. The patient will continued to be followed by Psychiatry throughout hospital course. I would like to thank Dr. Curtis Gavin for this interesting consultation. Wing Cervantes M.D. DR: Alexandro JOB#: [id number] CC:
[2017-07-28 00:08] VITALS: BP 114/65
[2017-07-28 04:18] VITALS: BP 109/65
[2017-07-28] MEDS: QUEtiapine 200mg tab ORAL SCH ×2 (06:09→13:04)
[2017-07-28] MEDS: Morphine Sulfate 2mg/ml Inj IVP PRN ×3 (06:17→15:48)
[2017-07-28 06:57] LABS: BASOPHILS % (AUTO) 0.5 % (0.0-2.0); HEMATOCRIT 43.4 % (42.0-52.0); HEMOGLOBIN 15.4 G/DL (14.2-18.0); LYMPHOCYTES % (AUTO) 21.7 % (20.0-45.0); MEAN CORPUSCULAR VOLUME 97 FL (80-99); MONOCYTES % (AUTO) 6.4 % (1.0-10.0); NEUTROPHILS % (AUTO) 69.4 % (45.0-75.0); PLATELET COUNT 222 K/UL (150-450); RED BLOOD COUNT 4.47 M/UL (4.70-6.10); RED CELL DISTRIBUTION WIDTH 11.3 % (11.6-14.8)
[2017-07-28 07:21] LABS: ANION GAP 8 mmol/L (5-15); BLOOD UREA NITROGEN 15 mg/dL (7-18); CALCIUM 8.6 MG/DL (8.5-10.1); CARBON DIOXIDE 26 MMOL/L (21-32); CHLORIDE 105 MMOL/L (98-107); CREATININE 0.9 MG/DL (0.55-1.30); POTASSIUM 3.9 MMOL/L (3.5-5.1); SODIUM 139 MMOL/L (136-145)
[2017-07-28 08:00] VITALS: BP 109/58
[2017-07-28] MEDS: D5 1/2NS 1,000 ML IV SCH (08:20)
[2017-07-28] MEDS: Lactulose 20gm/30ml UDC ORAL SCH (09:13)
[2017-07-28] MEDS: Benztropine 1mg tab ORAL SCH ×2 (09:15→17:05)
[2017-07-28] MEDS: carBAMazepine 200mg tab ORAL SCH ×3 (09:16→17:05)
[2017-07-28] MEDS: Nephrovite tab (Rena-Vite) ORAL SCH (09:16)
[2017-07-28] MEDS: Docusate 100mg cap ORAL SCH (09:16)
[2017-07-28] MEDS: Aspirin Baby 81mg ORAL SCH (09:19)
[2017-07-28] MEDS: Heparin 5000 units/ml inj SUBQ SCH (09:23)
[2017-07-28 12:00] VITALS: BP 128/60
--- NOTE | 2017-07-28 12:55 | General Progress Note ---
Assessment/Plan Assessment/Plan 1. Trip and fall, consult Neurology team, Dr. Espinoza has been consulted for evaluation. Continue to closely monitor. --> On pain management - morphine 2. Hypertension. Continue the patient's home medications. --> Currently blood pressure has actually been improved, slightly hypotensive. 3. Neutrophilia, likely secondary to reactive process. Continue to closely monitor. 4. Asthma, currently in mild exacerbation, closely monitor. 5. Weakness. Currently to be evaluated by neurological service. Subjective Date patient seen: Jul 27, 2017 Constitutional: Denies: no symptoms, chills, diaphoresis, fever, malaise, weakness, other HEENT: Denies: no symptoms, eye pain, blurred vision, tearing, double vision, ear pain, ear discharge, nose pain, nose congestion, throat pain, throat swelling, mouth pain, mouth swelling, other Cardiovascular: Denies: no symptoms, chest pain, edema, irregular heart rate, lightheadedness, palpitations, syncope, other Respiratory: Denies: no symptoms, cough, orthopnea, shortness of breath, SOB with excertion, SOB at rest, sputum, stridor, wheezing, other Gastrointestinal/Abdominal: Denies: no symptoms, abdomen distended, abdominal pain, black stools, tarry stools, blood in stool, constipated, diarrhea, difficulty swallowing, nausea, poor appetite, poor fluid intake, rectal bleeding , vomiting, other Genitourinary: Denies: no symptoms, burning, discharge, frequency, flank pain, hematuria, incontinence, pain, urgency, other Neurologic/Psychiatric: Denies: no symptoms, anxiety, depressed, emotional problems, headache, numbness, paresthesia, pre-existing deficit, seizure, tingling, tremors, weakness, other Allergies: Coded Allergies: CHLORPROMAZINE (Verified Allergy, Unknown, 04/20/17) DIVALPROEX SODIUM (Verified Allergy, Unknown, 04/17/17) FISH CONTAINING PRODUCTS (Verified Allergy, Unknown, 06/20/17) Subjective On pain control with morphine. NAD. Objective Last 24 Hour Vital Signs Date Time Temp Pulse Resp B/P (MAP) Pulse Ox O2 Delivery O2 Flow Rate FiO2 07/28/17 12:00 97.7 72 20 128/60 96 97.7 07/28/17 08:00 97.0 73 20 109/58 95 97.0 07/28/17 04:18 98.1 82 20 109/65 93 Room Air 98.1 07/28/17 00:08 96.6 76 20 114/65 95 Nasal Cannula 96.6 07/27/17 20:49 80 114/74 07/27/17 19:49 96.8 77 20 87/49 97 Room Air 96.8 07/27/17 17:12 97.2 07/27/17 16:42 97.2 07/27/17 16:00 98.2 93 20 143/73 97 Room Air 98.2 Intake and Output 07/27/17 07/28/17 19:00 07:00 Intake Total 2000 ml 720 ml Balance 2000 ml 720 ml Intake Oral 1280 ml IV Total 720 ml 720 ml # Voids 5 3 Laboratory Tests 07/28/17 05:10: White Blood Count 10.0#, Red Blood Count 4.47L, Hemoglobin 15.4, Hematocrit 43.4 , Mean Corpuscular Volume 97, Mean Corpuscular Hemoglobin 34.4H, Mean Corpuscular Hemoglobin Concent 35.5, Red Cell Distribution Width 11.3L, Platelet Count 222, Mean Platelet Volume 8.3, Neutrophils (%) (Auto) 69.4, Lymphocytes (%) (Auto) 21.7, Monocytes (%) (Auto) 6.4, Eosinophils (%) (Auto) 2.0, Basophils (%) (Auto) 0.5, Sodium Level 139, Potassium Level 3.9, Chloride Level 105, Carbon Dioxide Level 26, Anion Gap 8, Blood Urea Nitrogen 15, Creatinine 0.9, Estimat Glomerular Filtration Rate > 60, Glucose Level 91, Calcium Level 8.6 Height (Feet): 5 Height (Inches): 9.00 Weight (Pounds): 160 General Appearance: confused Respiratory/Chest: decreased breath sounds Job Tellez Jul 28, 2017 12:55
[2017-07-28] MEDS: LORazepam Inj 2mg/ml 1ml IV PRN (13:05)
--- NOTE | 2017-07-28 14:12 | General Progress Note ---
Assessment/Plan Assessment/Plan (1) Epilepsy (2) Neuropathic pain (3) Chronic pain syndrome (4) Right knee pain Pt will be continued on Morphine. D/w Dr. Dye and he concurred. Subjective Date patient seen: Jul 28, 2017 Time patient seen: 01:15 - pm Allergies: Coded Allergies: CHLORPROMAZINE (Verified Allergy, Unknown, 04/20/17) DIVALPROEX SODIUM (Verified Allergy, Unknown, 04/17/17) FISH CONTAINING PRODUCTS (Verified Allergy, Unknown, 06/20/17) Subjective REVIEW OF SYSTEMS: Denies rash, fever, chills, sweating, dizziness, drowsiness, blurred vision, sore throat, or change in his weight. No shortness of breath. No nausea, vomiting, diarrhea, or blood in stool or urine. No bowel or bladder incontinence. No dysuria. He is complaining of generalized body pain. SUBJECTIVE: Patient has been in bed and has been c/o body pain the pain has been reduced from a 10/10 to a 0/10 on the Morphine he has no new complaints. Objective Last 24 Hour Vital Signs Date Time Temp Pulse Resp B/P (MAP) Pulse Ox O2 Delivery O2 Flow Rate FiO2 07/28/17 12:00 97.7 72 20 128/60 96 97.7 07/28/17 08:00 97.0 73 20 109/58 95 97.0 07/28/17 04:18 98.1 82 20 109/65 93 Room Air 98.1 07/28/17 00:08 96.6 76 20 114/65 95 Nasal Cannula 96.6 07/27/17 20:49 80 114/74 07/27/17 19:49 96.8 77 20 87/49 97 Room Air 96.8 07/27/17 17:12 97.2 07/27/17 16:42 97.2 07/27/17 16:00 98.2 93 20 143/73 97 Room Air 98.2 Intake and Output 07/27/17 07/28/17 19:00 07:00 Intake Total 2000 ml 720 ml Balance 2000 ml 720 ml Intake Oral 1280 ml IV Total 720 ml 720 ml # Voids 5 3 Laboratory Tests 07/28/17 05:10: White Blood Count 10.0#, Red Blood Count 4.47L, Hemoglobin 15.4, Hematocrit 43.4 , Mean Corpuscular Volume 97, Mean Corpuscular Hemoglobin 34.4H, Mean Corpuscular Hemoglobin Concent 35.5, Red Cell Distribution Width 11.3L, Platelet Count 222, Mean Platelet Volume 8.3, Neutrophils (%) (Auto) 69.4, Lymphocytes (%) (Auto) 21.7, Monocytes (%) (Auto) 6.4, Eosinophils (%) (Auto) 2.0, Basophils (%) (Auto) 0.5, Sodium Level 139, Potassium Level 3.9, Chloride Level 105, Carbon Dioxide Level 26, Anion Gap 8, Blood Urea Nitrogen 15, Creatinine 0.9, Estimat Glomerular Filtration Rate > 60, Glucose Level 91, Calcium Level 8.6 Height (Feet): 5 Height (Inches): 9.00 Weight (Pounds): 160 Objective GENERAL: Alert, awake, and oriented. LUNGS: Clear. HEART: S1 S2 Regular. ABDOMEN: Benign. EXTREMITIES: No cyanosis. No clubbing. NEUROLOGIC: weakness noted in extremities. EMMA AGUILAR Jul 28, 2017 14:12
--- NOTE | 2017-07-28 14:49 | General Progress Note ---
Assessment/Plan Problem List: (1) HTN (hypertension) ICD Codes: I10 - Essential (primary) hypertension SNOMED: 53116564 (2) Psychiatric disorder ICD Codes: F99 - Mental disorder, not otherwise specified SNOMED: 36298998, 418366473 (3) Seizure disorder ICD Codes: G40.909 - Epilepsy, unspecified, not intractable, without status epilepticus SNOMED: 318942278 (4) Chronic pain ICD Codes: G89.29 - Other chronic pain SNOMED: 08386559 Status: stable, progressing, tolerating diet Assessment/Plan ot pt diet seizure control pain control psyc eval psyc transfer Subjective Allergies: Coded Allergies: CHLORPROMAZINE (Verified Allergy, Unknown, 04/20/17) DIVALPROEX SODIUM (Verified Allergy, Unknown, 04/17/17) FISH CONTAINING PRODUCTS (Verified Allergy, Unknown, 06/20/17) All Systems: reviewed and negative except above Subjective calm sl confused wants to go to psyc Objective Last 24 Hour Vital Signs Date Time Temp Pulse Resp B/P (MAP) Pulse Ox O2 Delivery O2 Flow Rate FiO2 07/28/17 12:00 97.7 72 20 128/60 96 97.7 07/28/17 08:00 97.0 73 20 109/58 95 97.0 07/28/17 04:18 98.1 82 20 109/65 93 Room Air 98.1 07/28/17 00:08 96.6 76 20 114/65 95 Nasal Cannula 96.6 07/27/17 20:49 80 114/74 07/27/17 19:49 96.8 77 20 87/49 97 Room Air 96.8 07/27/17 17:12 97.2 07/27/17 16:42 97.2 07/27/17 16:00 98.2 93 20 143/73 97 Room Air 98.2 Intake and Output 07/27/17 07/28/17 19:00 07:00 Intake Total 2000 ml 720 ml Balance 2000 ml 720 ml Intake Oral 1280 ml IV Total 720 ml 720 ml # Voids 5 3 Laboratory Tests 07/28/17 05:10: White Blood Count 10.0#, Red Blood Count 4.47L, Hemoglobin 15.4, Hematocrit 43.4 , Mean Corpuscular Volume 97, Mean Corpuscular Hemoglobin 34.4H, Mean Corpuscular Hemoglobin Concent 35.5, Red Cell Distribution Width 11.3L, Platelet Count 222, Mean Platelet Volume 8.3, Neutrophils (%) (Auto) 69.4, Lymphocytes (%) (Auto) 21.7, Monocytes (%) (Auto) 6.4, Eosinophils (%) (Auto) 2.0, Basophils (%) (Auto) 0.5, Sodium Level 139, Potassium Level 3.9, Chloride Level 105, Carbon Dioxide Level 26, Anion Gap 8, Blood Urea Nitrogen 15, Creatinine 0.9, Estimat Glomerular Filtration Rate > 60, Glucose Level 91, Calcium Level 8.6 Height (Feet): 5 Height (Inches): 9.00 Weight (Pounds): 160 General Appearance: alert EENT: normal ENT inspection Neck: normal alignment Cardiovascular: normal peripheral pulses, normal rate, regular rhythm Respiratory/Chest: chest wall non-tender, lungs clear, normal breath sounds Abdomen: normal bowel sounds, non tender, soft Extremities: normal inspection Edema: no edema noted Arm (L), no edema noted Arm (R), no edema noted Leg (L), no edema noted Leg (R), no edema noted Pedal (L), no edema noted Pedal (R), no edema noted Generalized Neurologic: responsive, motor weakness Skin: normal pigmentation, warm/dry JUAN FROST Jul 28, 2017 14:49
[2017-07-28 15:52] VITALS: BP 121/68
[2017-07-28] MEDS ORDERED: NEPHROVITE1 TAB ORAL ×2 (17:48→17:49)
[2017-07-28] MEDS ORDERED: D5 1/2NS 1000ml IV ONE (19:59)
[2017-07-28 20:22] VITALS: BP 115/70
--- NOTE | 2017-07-29 08:15 | Progress Note ---
DATE: 07/28/2017 SUBJECTIVE: The patient is a 42-year-old male patient. Very angry. He continues to have some irritability, agitation, and mood lability. He talks about lot of medical hospital. That is why, his attending has requested daily psychiatric consultation. MENTAL STATUS EXAMINATION: This is a 42-year-old male with psychomotor agitation. Mood is irritable and agitated. Affect is guarded and restricted. Thought process is disorganized and illogical. Denies any current suicidal or homicidal thoughts. Insight and judgment is poor. DIAGNOSIS: Bipolar 2, schizoaffective disorder, bipolar type. PLAN: Continue to provide him with supportive therapy. . Chart was reviewed and discussed with staff. Seen and assessed at bedside. 15 to 20 minutes of supportive therapy provided. Wing Cervantes M.D. DR: SALOME JOB#: [id number] CC:
--- NOTE | 2017-07-29 10:13 | General Progress Note ---
Assessment/Plan Assessment/Plan 1. Trip and fall, consult Neurology team, Dr. Espinoza has been consulted for evaluation. --> Continue to closely monitor. --> On pain management - morphine --> Pain improved. 2. Hypertension. Continue the patient's home medications. --> Currently blood pressure has actually been improved, slightly hypotensive. 3. Neutrophilia, likely secondary to reactive process. Continue to closely monitor. 4. Asthma, currently in mild exacerbation, closely monitor. 5. Weakness. Currently to be evaluated by neurological service. Subjective Date patient seen: Jul 28, 2017 Constitutional: Denies: no symptoms, chills, diaphoresis, fever, malaise, weakness, other HEENT: Denies: no symptoms, eye pain, blurred vision, tearing, double vision, ear pain, ear discharge, nose pain, nose congestion, throat pain, throat swelling, mouth pain, mouth swelling, other Cardiovascular: Denies: no symptoms, chest pain, edema, irregular heart rate, lightheadedness, palpitations, syncope, other Respiratory: Denies: no symptoms, cough, orthopnea, shortness of breath, SOB with excertion, SOB at rest, sputum, stridor, wheezing, other Gastrointestinal/Abdominal: Denies: no symptoms, abdomen distended, abdominal pain, black stools, tarry stools, blood in stool, constipated, diarrhea, difficulty swallowing, nausea, poor appetite, poor fluid intake, rectal bleeding , vomiting, other Genitourinary: Denies: no symptoms, burning, discharge, frequency, flank pain, hematuria, incontinence, pain, urgency, other Neurologic/Psychiatric: Denies: no symptoms, anxiety, depressed, emotional problems, headache, numbness, paresthesia, pre-existing deficit, seizure, tingling, tremors, weakness, other Hematologic/Lymphatic: Reports: anemia Allergies: Coded Allergies: CHLORPROMAZINE (Verified Allergy, Unknown, 04/20/17) DIVALPROEX SODIUM (Verified Allergy, Unknown, 04/17/17) FISH CONTAINING PRODUCTS (Verified Allergy, Unknown, 06/20/17) Subjective Pain improved today. No fever. Objective Last 24 Hour Vital Signs Date Time Temp Pulse Resp B/P (MAP) Pulse Ox O2 Delivery O2 Flow Rate FiO2 07/28/17 20:22 97.5 88 19 115/70 98 97.5 07/28/17 15:52 97.7 87 20 121/68 94 97.7 07/28/17 12:00 97.7 72 20 128/60 96 97.7 Intake and Output 07/28/17 07/29/17 19:00 07:00 Intake Total 840 ml Balance 840 ml Intake Oral 480 ml IV Total 360 ml # Voids 4 Height (Feet): 5 Height (Inches): 9.00 Weight (Pounds): 160 Respiratory/Chest: decreased breath sounds Abdomen: soft Job Tellez Jul 29, 2017 10:13
--- NOTE | 2017-07-29 23:02 | General Progress Note ---
Assessment/Plan Assessment/Plan schizophrenia chronic paranoid type mdd i do rec dc trazodone the pt is reluctant dc sitter Subjective Date patient seen: Jul 28, 2017 Neurologic/Psychiatric: Reports: anxiety, depressed, emotional problems Allergies: Coded Allergies: CHLORPROMAZINE (Verified Allergy, Unknown, 04/20/17) DIVALPROEX SODIUM (Verified Allergy, Unknown, 04/17/17) FISH CONTAINING PRODUCTS (Verified Allergy, Unknown, 06/20/17) Objective Intake and Output 07/28/17 07/29/17 19:00 07:00 Intake Total 840 ml Balance 840 ml Intake Oral 480 ml IV Total 360 ml # Voids 4 Height (Feet): 5 Height (Inches): 9.00 Weight (Pounds): 160 General Appearance: no apparent distress, alert, agitated Neurologic: alert, oriented x 3, responsive, depressed affect Monica Herbert M.D. Jul 29, 2017 23:02
--- NOTE | 2017-07-30 11:03 | Discharge Summary ---
Discharge Summary Hospital Course Date of Admission Jul 26, 2017 at 11:35 Date of Discharge Jul 28, 2017 at 20:00 Admitting Diagnosis falling episod HPI Rigo Howell is a 42 year old male who was admitted on Jul 26, 2017 at 11:35 for Falling Episode Hospital Course [id number] Discharge Discharge Disposition Patient was discharged to SNF/Subacute Facility(03) Discharge Diagnoses: Ade Serrano NP Jul 30, 2017 11:03
--- NOTE | 2017-07-31 00:15 | Discharge Summary 2 SIG ---
DATE OF ADMISSION: 07/26/2017 DATE OF DISCHARGE: 07/28/2017 CONSULTANTS: 1. Job Tellez M.D. 2. Ghassan Espinoza M.D. 3. Carolina Dye M.D. 4. Wing Cervantes M.D. 5. Monica Herbert M.D. BRIEF HOSPITAL COURSE: The patient is a 42-year-old male with past medical history significant for hypertension, seizure disorder, hypoxia, head trauma, syncope, asthma, and chronic obstructive pulmonary disease, presented to ED complaining of multiple falls. The patient is undergoing physical therapy for weakness in the legs at assisted and stated that his coordination is poor. He recently fell onto his right forearm. He had history of multiple falls in the past. He has history of seizure disorder, but there was no seizure activity noted during the fall. On evaluation at ED, blood work showed no leukocytosis. Right arm showed good position with normal neurovascular assessment. Urine toxicology was negative. He had a right forearm x-ray that showed no acute fractures or dislocation. He had a recent head CT done last month that was negative. He was admitted for evaluation of falls. He was seen by neurologist. He denied any loss of consciousness. No head injury. Carbamazepine level was 3.2. The patient has abnormal gait and is wheelchair bound. Lamictal was increased to 100 mg b.i.d. Advised to taper off on Tegretol and eventually on Keppra. He was seen by psychiatrist and medications were adjusted. He was diagnosed with bipolar 2 schizoaffective disorder. He was continued on trazodone at bedtime with 1 mg of Ativan p.r.n. He was given Cogentin 2 mg b.i.d. for Parkinson's. He was given pain management with 2 mg of morphine IV push. Sitter was discontinued. He was initially planned for transfer to a psychiatric facility, however, unable as the patient is nonambulatory and required oxygenation. He was eventually discharged back to assisted. FINAL DIAGNOSES: 1. Psychiatric disorder. 2. Seizure disorder. 3. Chronic pain. 4. Hypertension. 5. Asthma in mild exacerbation. 6. Weakness. 7. Bipolar 2 schizoaffective disorder, bipolar type. 8. Tardive dyskinesia, probably drug induced. 9. Nonambulatory status post severe head trauma. DISPOSITION: The patient was discharged back to [facility]. DISCHARGE MEDICATIONS: Refer to medication list. Curtis Gavin D.O. I have been assigned to dictate discharge summary on this account and I was not involved in the patient's management. Ade Serrano N.P. DR: NETO JOB#: [id number] CC: OTONIEL
== END 2017-07-28 20:00 | DRG 605 ==
LOC: EDBD 10:12 → EMR 11:30 → 4W 11:35 → EDBEDREQ 15:30 → 4W 18:14
DX: S50.11XA Contusion of right forearm, initial encounter (principal); G20 Parkinson's disease; G40.209 Localization-related (focal) (partial) symptomatic epilepsy and epileptic syndromes with complex partial seizures, not intractable, without status epilepticus; G62.9 Polyneuropathy, unspecified; J45.901 Unspecified asthma with (acute) exacerbation; F31.81 Bipolar II disorder; W01.0XXA Fall on same level from slipping, tripping and stumbling without subsequent striking against object, initial encounter; Z91.81 History of falling; G24.01 Drug induced subacute dyskinesia; R29.6 Repeated falls; F25.0 Schizoaffective disorder, bipolar type; G89.29 Other chronic pain; R53.1 Weakness; Z87.820 Personal history of traumatic brain injury; Z99.3 Dependence on wheelchair; F43.10 Post-traumatic stress disorder, unspecified; Z88.8 Allergy status to other drugs, medicaments and biological substances
CPT/HCPCS: 36415; 80048; 80053; 80156; 80299; 80307; 80329; 81003; 82550; 84443; 85025; 87081; 99285

== ENCOUNTER 2017-11-13 04:48 | Inpatient (IN) | payer MEDICARE, OTHER ==
[~2017-11-13] VITALS: Ht 180.3 cm; Wt 81.6 kg
[~2017-11-13 04:48] MED LIST changes: +NEPHROVITE1 TAB ORAL
--- NOTE | 2017-11-13 04:52 | Emergency Room Report ---
History of Present Illness General Chief Complaint: Abnormal Labs Source: Patient, EMS Present Illness HPI This is a 42-year-old male brought in by EMS after reportedly having abnormal labs at his facility. Patient was noted to have a low-grade temperature. The patient was noted to have white blood count approximately 15,000. Allergies: Coded Allergies: CHLORPROMAZINE (Verified Allergy, Unknown, 11/13/17) DIVALPROEX SODIUM (Verified Allergy, Unknown, 04/17/17) FISH CONTAINING PRODUCTS (Verified Allergy, Unknown, 06/20/17) Patient History Reviewed Nursing Documentation: PMH: Agreed; PSxH: Agreed Nursing Documentation-PMH Hx Cardiac Problems: Yes Hx Hypertension: Yes Hx Asthma: Yes Hx COPD: Yes Hx Cancer: No Hx Gastrointestinal Problems: No Hx Neurological Problems: Yes - Parkinsons Hx Parkinson's Disease: Yes Hx Seizures: Yes Hx Epilepsy: Yes Hx Peripheral Neuropathy: Yes Hx Head Trauma: Yes Hx Dizziness: Yes Hx Syncope: Yes Hx Headaches: Yes Hx Weakness: Yes Review of Systems All Other Systems: negative except mentioned in HPI Physical Exam Vital Signs Date Time Temp Pulse Resp B/P (MAP) Pulse Ox O2 Delivery O2 Flow Rate FiO2 11/13/17 04:45 98.0 88 18 105/64 95 Nasal Cannula 2.0 98.1 Sp02 EP Interpretation: reviewed, normal General Appearance: normal inspection, well appearing, no apparent distress, alert, GCS 15 Head: atraumatic ENT: normal ENT inspection, hearing grossly normal, normal voice Neck: normal inspection, full range of motion, supple, no bony tend Respiratory: normal inspection, lungs clear, normal breath sounds, no respiratory distress, no retraction, no wheezing Cardiovascular #1: regular rate, rhythm, no edema Gastrointestinal: normal inspection, normal bowel sounds, non tender, soft, no guarding, no hernia Genitourinary: no CVA tenderness Musculoskeletal: normal inspection, back normal, normal range of motion Neurologic: normal inspection, alert, responsive, speech normal Psychiatric: normal inspection, judgement/insight normal, mood/affect normal Skin: normal inspection, normal color, no rash Medical Decision Making Diagnostic Impression: Primary Impression: COPD (chronic obstructive pulmonary disease) Additional Impression: Choreoathetosis ER Course Patient presented for abnormal lab values. Differential diagnosis included but was not limited to stress demargination, uti, pneumonia, anemia, pneumothorax, myocardial infarction, pericardial effusion, congestive heart failure, acidosis among others. The laboratory testing was unremarkable however patient appeared to have a some difficulty breathing he was started on breathing treatments without any improvement. patient will be admitted to Dr. Curtis Gavin for inpatient management due to continued difficulty breathing. Labs Test 11/13/17 05:15 11/13/17 05:55 White Blood Count 10.3 K/UL (4.8-10.8) Red Blood Count 4.52 M/UL (4.70-6.10) Hemoglobin 15.0 G/DL (14.2-18.0) Hematocrit 43.8 % (42.0-52.0) Mean Corpuscular Volume 97 FL (80-99) Mean Corpuscular Hemoglobin 33.2 PG (27.0-31.0) Mean Corpuscular Hemoglobin Concent 34.2 G/DL (32.0-36.0) Red Cell Distribution Width 11.1 % (11.6-14.8) Platelet Count 257 K/UL (150-450) Mean Platelet Volume 7.3 FL (6.5-10.1) Neutrophils (%) (Auto) 68.8 % (45.0-75.0) Lymphocytes (%) (Auto) 21.1 % (20.0-45.0) Monocytes (%) (Auto) 6.4 % (1.0-10.0) Eosinophils (%) (Auto) 2.5 % (0.0-3.0) Basophils (%) (Auto) 1.1 % (0.0-2.0) Sodium Level 139 MMOL/L (136-145) Potassium Level 4.3 MMOL/L (3.5-5.1) Chloride Level 106 MMOL/L (98-107) Carbon Dioxide Level 26 MMOL/L (21-32) Anion Gap 7 mmol/L (5-15) Blood Urea Nitrogen 17 mg/dL (7-18) Creatinine 0.9 MG/DL (0.55-1.30) Estimat Glomerular Filtration Rate > 60 mL/min (>60) Glucose Level 110 MG/DL (74-106) Lactic Acid Level 0.40 mmol/L (0.4-2.0) Calcium Level 9.1 MG/DL (8.5-10.1) Total Bilirubin 0.3 MG/DL (0.2-1.0) Aspartate Amino Transf (AST/SGOT) 14 U/L (15-37) Alanine Aminotransferase (ALT/SGPT) 34 U/L (12-78) Alkaline Phosphatase 56 U/L (46-116) Total Creatine Kinase 55 U/L (26-308) Creatine Kinase MB 1.1 NG/ML (0.0-3.6) Creatine Kinase MB Relative Index 2.0 Troponin I 0.000 ng/mL (0.000-0.056) Total Protein 6.5 G/DL (6.4-8.2) Albumin 3.6 G/DL (3.4-5.0) Globulin 2.9 g/dL Albumin/Globulin Ratio 1.2 (1.0-2.7) Urine Color Pale yellow Urine Appearance Clear Urine pH 6 (4.5-8.0) Urine Specific [place] 1.010 (1.005-1.035) Urine Protein Negative (NEGATIVE) Urine Glucose (UA) Negative (NEGATIVE) Urine Ketones Negative (NEGATIVE) Urine Occult Blood Negative (NEGATIVE) Urine Nitrite Negative (NEGATIVE) Urine Bilirubin Negative (NEGATIVE) Urine Urobilinogen Normal MG/DL (0.0-1.0) Urine Leukocyte Esterase Negative (NEGATIVE) Last Vital Signs Date Time Temp Pulse Resp B/P (MAP) Pulse Ox O2 Delivery O2 Flow Rate FiO2 11/13/17 04:45 98.0 88 18 105/64 95 Nasal Cannula 2.0 98.1 Status: unchanged Disposition: ADMITTED INPATIENT Condition: Stable Yosef Smith MD Nov 13, 2017 04:52
[2017-11-13 05:32] LABS: BASOPHILS % (AUTO) 1.1 % (0.0-2.0); EOSINOPHILS % (AUTO) 2.5 % (0.0-3.0); HEMATOCRIT 43.8 % (42.0-52.0); LYMPHOCYTES % (AUTO) 21.1 % (20.0-45.0); MEAN CORPUSCULAR VOLUME 97 FL (80-99); MONOCYTES % (AUTO) 6.4 % (1.0-10.0); NEUTROPHILS % (AUTO) 68.8 % (45.0-75.0); PLATELET COUNT 257 K/UL (150-450); RED BLOOD COUNT 4.52 M/UL (4.70-6.10); RED CELL DISTRIBUTION WIDTH 11.1 % (11.6-14.8); WHITE BLOOD COUNT 10.3 K/UL (4.8-10.8)
[2017-11-13] MEDS ORDERED: LEVETIRACETAM250 MG PO (05:46)
[2017-11-13] MEDS ORDERED: LACTULOSE20 GM/301 ORAL (05:46)
[2017-11-13] MEDS ORDERED: TEMAZEPAM15 MG ORAL (05:46)
[2017-11-13] MEDS ORDERED: ARTIFICIAL TEAR15 ML BOTH EYES (05:46)
[2017-11-13] MEDS ORDERED: PANTOPRAZOLE SO40 MG ORAL (05:46)
[2017-11-13] MEDS ORDERED: RISPERDAL2 MG ORAL (05:46)
[2017-11-13] MEDS ORDERED: NASONEX17 GM NASAL (05:46)
[2017-11-13] MEDS ORDERED: BISACODYL5 MG RC (05:46)
[2017-11-13] MEDS ORDERED: MORPHINE SULFAT15 MG PO (05:46)
[2017-11-13] MEDS ORDERED: ADVAIR HFA 45-212 GM INH (05:46)
[2017-11-13] MEDS ORDERED: MILK OF MA400 MG/51 ORAL (05:46)
[2017-11-13] MEDS ORDERED: TAMSULOSIN HCL0.4 MG ORAL (05:46)
[2017-11-13] MEDS ORDERED: PROZAC20 MG ORAL (05:46)
[2017-11-13] MEDS ORDERED: TRILEPTAL600 MG PO (05:46)
[2017-11-13] MEDS ORDERED: GABAPENTIN600 MG ORAL (05:46)
[2017-11-13] MEDS ORDERED: SEROQUEL25 MG ORAL (05:46)
[2017-11-13 05:50] LABS: ANION GAP 7 mmol/L (5-15); BLOOD UREA NITROGEN 17 mg/dL (7-18); CALCIUM 9.1 MG/DL (8.5-10.1); CARBON DIOXIDE 26 MMOL/L (21-32); CHLORIDE 106 MMOL/L (98-107); CREATININE 0.9 MG/DL (0.55-1.30); POTASSIUM 4.3 MMOL/L (3.5-5.1); SODIUM 139 MMOL/L (136-145)
[2017-11-13 06:02] LABS: APPEARANCE,URINE CLEAR; BILIRUBIN, URINE NEGATIVE (NEGATIVE); COLOR,URINE PALE YELLOW; GLUCOSE, URINE (UA) NEGATIVE (NEGATIVE); KETONES,URINE NEGATIVE (NEGATIVE); LEUKOCYTE ESTERASE ,URINE NEGATIVE (NEGATIVE); NITRITE,URINE NEGATIVE (NEGATIVE); PH,URINE 6 (4.5-8.0); PROTEIN,URINE NEGATIVE (NEGATIVE); UROBILINOGEN,URINE NORMAL MG/DL (0.0-1.0)
[2017-11-13 06:04] LABS: ALANINE AMINOTRANSFERASE 34 U/L (12-78); ALBUMIN 3.6 G/DL (3.4-5.0); ALBUMIN/GLOBULIN RATIO 1.2 (1.0-2.7); ALKALINE PHOSPHATASE 56 U/L (46-116); ASPARTATE AMINO TRANSFERASE 14 U/L (15-37); BILIRUBIN,TOTAL 0.3 MG/DL (0.2-1.0); CKMB 1.1 NG/ML (0.0-3.6); CREATINE KINASE 55 U/L (26-308)
[2017-11-13 06:12] VITALS: BP 123/85
[2017-11-13] MEDS ORDERED: Albuterol/Ipratropium 3ml neb HHN ONE (06:15)
[2017-11-13 08:54] VITALS: BP 122/69
[2017-11-13] MEDS ORDERED: Nitroglycerin Subl 0.4mg tab SL PRN (09:30)
[2017-11-13] MEDS ORDERED: carBAMazepine 200mg tab ORAL SCH (09:30)
[2017-11-13] MEDS ORDERED: Albuterol/Ipratropium 3ml neb HHN PRN (09:30)
[2017-11-13] MEDS ORDERED: Lactulose 20gm/30ml UDC ORAL SCH (09:30)
[2017-11-13] MEDS ORDERED: Aspirin Baby 81mg ORAL SCH (09:30)
[2017-11-13] MEDS: Benztropine 1mg tab ORAL SCH ×2 (10:38→17:38)
[2017-11-13] MEDS: Morphine Sulfate 2mg/ml Inj IVP PRN ×3 (10:40→22:34)
[2017-11-13] MEDS: Heparin 5000 units/ml inj SUBQ SCH ×2 (10:44→20:22)
[2017-11-13] MEDS: OXcarbazepine 150mg tab ORAL SCH ×2 (11:00→20:21)
[2017-11-13] MEDS: Solu-MEDROL 125mg Inj IV SCH ×3 (13:05→23:45)
[2017-11-13] MEDS: Zoysn 3.37gm in NS 100ML IVPB SCH ×2 (13:06→18:43)
[2017-11-13] MEDS ORDERED: Piperacillin/Tazobactam 2.25 GM in D5W 55 ML IV SCH (14:00)
[2017-11-13] MEDS: carBAMazepine 200mg tab ORAL SCH ×2 (14:31→21:44)
--- NOTE | 2017-11-13 15:34 | Diagnostic Imaging Report ---
Indication: Reason For Exam: SOB Technique: One view of the chest Comparison: 06/07/2016 Findings: Lungs and pleural spaces are clear. Heart size is normal Impression: No acute process
--- NOTE | 2017-11-13 15:35 | Diagnostic Imaging Report ---
Indications: Pain in right forearm after falling Technique: Two views of the forearm Comparison: None Findings: No acute fractures. No dislocations. No radiopaque foreign body. Impression: Negative
--- NOTE | 2017-11-13 20:16 | History and Physical Report ---
DATE OF ADMISSION: 11/13/2017 TIME SEEN: 2 p.m. CONSULTANTS: 1. Patricio Strong M.D. 2. Wing Cervantes M.D. 3. Saturnino King M.D. 4. Silvino Henley M.D. CHIEF COMPLAINT: COPD exacerbation, weakness, and fever. BRIEF HISTORY: This is a 42-year-old male from [facility], has been coughing a lot, was little bit weak, feverish, white count found to be 15 but repeat in [place] ER was somewhat normal. The patient has been admitted for further care. Currently, calm, O2 NC, slight short of breath. No complaint otherwise. REVIEW OF SYSTEMS: No chest pain. Slight short of breath. No nausea, vomiting, or diarrhea. PAST MEDICAL HISTORY: COPD, weakness, fever, priapism, hypertension, and seizure. PAST SURGICAL HISTORY: Penile shunt. MEDICATIONS: Lamictal, Flomax, Desyrel, Restoril, Keppra, Tegretol, Solu-Medrol, Seroquel, aspirin, Cogentin, Neurontin, Cephulac, Risperdal, heparin, Ativan, Zofran. ALLERGIES: Chlorpromazine, divalproex. SOCIAL HISTORY: Positive smoking. No alcohol. No intravenous drug abuse. FAMILY HISTORY: Noncontributory. PHYSICAL EXAMINATION: GENERAL: Calm in bed, oriented x3, in no acute distress. VITAL SIGNS: Temperature 98 degrees, pulse 78, respirations 16, and blood pressure 122/69. CARDIOVASCULAR: No murmur. LUNGS: Poor air exchange. ABDOMEN: Bowel sounds distant. EXTREMITIES: No cyanosis, clubbing, or edema. NEUROLOGIC: Slightly weak x4, otherwise all extremities. LABORATORY AND DIAGNOSTIC DATA: CBC is normal. BMP, glucose 110, AST 14, otherwise BMP is normal. Troponin 0.00. Urinalysis is negative. ASSESSMENT: 1. COPD exacerbation. 2. Hypertension. 3. Seizure. 4. Weakness. 5. History of priapism. PLAN: 1. Continue previous medication. 2. Blood pressure, pain control. 3. Dietary followup. 4. O2 and pulmonary treatment. 5. Taper off steroids. 6. OT/PT. 7. Dietary evaluation. 8. CBC and BMP in the morning. Curtis Gavin D.O. DR: Aramis JOB#: [id number] CC:
[2017-11-13] MEDS: LORazepam Inj 2mg/ml 1ml IV PRN (20:55)
[2017-11-13 21:00] VITALS: BP 116/60
[2017-11-13] MEDS ORDERED: Tamsulosin 0.4mg cap ORAL SCH (21:00)
[2017-11-13] MEDS ORDERED: TraZODone 50mg tab ORAL SCH (21:00)
--- NOTE | 2017-11-13 22:10 | Consultation ---
History of Present Illness General Chief Complaint: Abnormal Labs Present Illness Allergies: Coded Allergies: CHLORPROMAZINE (Verified Allergy, Unknown, 11/13/17) DIVALPROEX SODIUM (Verified Allergy, Unknown, 04/17/17) FISH CONTAINING PRODUCTS (Verified Allergy, Unknown, 06/20/17) Medication History Scheduled Aspirin* (Aspirin*), 81 MG ORAL DAILY, (Reported) Benztropine Mesylate* (Benztropine Mesylate*), 2 MG PO BID, (Reported) Benztropine Mesylate* (Benztropine Mesylate*), 2 MG ORAL TWICE A DAY, (Reported) Bisacodyl* (Dulcolax*), 10 MG RC NEEDED, (Reported) Carbamazepine (Tegretol*), 200 MG PO TID, (Reported) Docusate Sodium* (Colace*), 100 MG ORAL DAILY, (Reported) Fluoxetine Hcl* (Prozac*), 20 MG ORAL DAILY, (Reported) Fluticasone/Salmeterol (Advair Hfa 45-21 Mcg Inhaler), 2 PUFFS INH EVERY 12 HOURS, (Reported) Gabapentin* (Gabapentin*), 600 MG ORAL THREE TIMES A DAY, (Reported) Lactulose (Lactulose*), 30 ML ORAL DAILY, (Reported) Lamotrigine (Lamictal), 50 MG ORAL TWICE A DAY, (Reported) Levetiracetam (Levetiracetam), 250 MG PO TID, (Reported) Magnesium Hydroxide* (Milk Of Magnesia*), 30 ML ORAL NEEDED, (Reported) Mometasone Furoate (Nasonex), 2 SPRAYS NASAL BID, (Reported) Morphine Sulfate (Morphine Sulfate), 15 MG PO EVERY 12 HOURS, (Reported) Multivitamin (Multi Vitamin Daily), 1 TAB ORAL DAILY, (Reported) Nicotine 14MG Patch* (Nicoderm Cq 14MG*), 1 EACH TD DAILY, (Reported) Nitroglycerin (Nitroglycerin), 0.4 MG SL PRN, (Reported) Olopatadine (Patanol), 1 DROP OD DAILY, (Reported) Oxcarbazepine* (Trileptal*), 300 MG PO BID, (Reported) Pantoprazole* (Pantoprazole*), 40 MG ORAL DAILY, (Reported) Quetiapine Fumarate* (Seroquel*), 50 MG ORAL TWICE A DAY, (Reported) Risperidone* (Risperdal*), 2 MG ORAL BID, (Reported) Tamsulosin Hcl (Tamsulosin Hcl*), 0.4 MG ORAL BEDTIME, (Reported) Temazepam (Temazepam*), 30 MG ORAL NEEDED, (Reported) Trazodone* (Trazodone*), 50 MG ORAL BEDTIME, (Reported) Vitamin B Cmplx/Vit C/Folic AC (Nephro-Ramona Tablet), 1 TAB ORAL DAILY, (Reported ) Vitamin B Cmplx/Vit C/Folic AC (Nephro-Ramona Tablet), 1 TAB ORAL DAILY, (Reported ) Scheduled PRN Acetaminophen* (Acetaminophen 325MG Tablet*), 650 MG ORAL Q4H PRN for Fever/ Headache/Mild Pain, (Reported) Al Hydroxide/mg Hydroxide (Mag-Al Plus Suspension), 30 ML PO Q6HR PRN for prn, ( Reported) Albuterol Sulfate (Ventolin Hfa), 2 PUFFS INH EVERY 6 HOURS PRN for Shortness of Breath, (Reported) Diphenhydramine HCl (Benadryl), 50 MG PO QHS PRN for Itching, (Reported) Hydrocodone Bit/Acetaminophen 5-325* ([place] 5-325*), 1 TAB ORAL Q6H PRN for For Pain, (Reported) Lorazepam* (Ativan*), 0.5 MG ORAL Q6HR PRN for For Anxiety, (Reported) Polyethylene Glycol 3350* (Polyethylene Glycol 3350*), 17 GM ORAL BEDTIME PRN for Constipation, (Reported) Miscellaneous Medications Dextran 70/Hypromellose (Artificial Tears Eye Drops*), 2 DROP BOTH EYES, ( Reported) Folic Acid/Vitamin B Comp W-C (Lia-Ramona Tablet), 1 MG PO, (Reported) Unable to Obtain Medications (Unable To Obtain Meds), (Reported) Discontinued Medications Gabapentin* (Gabapentin*), 300 MG ORAL EVERY 8 HOURS, (Reported) Discontinued Reason: Medication dose changed Lactulose (Lactulose*), 15 ML ORAL DAILY, (Reported) Discontinued Reason: Medication dose changed Levetiracetam (Keppra), 1,500 MG ORAL EVERY 12 HOURS, (Reported) Discontinued Reason: Medication dose changed Quetiapine Fumarate* (Seroquel*), 200 MG ORAL EVERY 8 HOURS, (Reported) Discontinued Reason: Medication dose changed Temazepam* (Restoril*), 15 MG ORAL BEDTIME PRN for Insomnia, (Reported) Discontinued Reason: Medication dose changed Patient History Healthcare decision maker Resuscitation status Advanced Directive on File Physical Exam Last 24 Hour Vital Signs Date Time Temp Pulse Resp B/P (MAP) Pulse Ox O2 Delivery O2 Flow Rate FiO2 11/13/17 21:05 95 Nasal Cannula 0.5 11/13/17 21:05 Nasal Cannula 0.5 11/13/17 21:04 78 20 95 Nasal Cannula 2.0 28 11/13/17 21:00 98.9 77 19 116/60 96 Nasal Cannula 2.0 98.9 11/13/17 18:20 98.8 11/13/17 17:50 98.8 11/13/17 12:26 97 Nasal Cannula 0.5 11/13/17 12:24 Nasal Cannula 0.5 11/13/17 10:40 98.8 11/13/17 08:55 98.8 78 16 122/69 97 Nasal Cannula 2.0 28 98.8 11/13/17 08:54 98.8 78 16 122/69 97 Nasal Cannula 2.0 28 98.8 11/13/17 07:04 73 16 97 Nasal Cannula 2.0 28 11/13/17 06:53 76 20 92 Nasal Cannula 2.0 28 11/13/17 06:53 76 20 Nasal Cannula 2.0 28 11/13/17 06:12 98.1 78 17 123/85 97 Nasal Cannula 2.0 98.1 11/13/17 04:45 98.0 88 18 105/64 95 Nasal Cannula 2.0 98.1 Intake and Output 11/12/17 11/13/17 19:00 07:00 Output Total 450 ml Balance -450 ml Output Urine Total 450 ml Laboratory Tests Test 11/13/17 05:15 11/13/17 05:55 White Blood Count 10.3 K/UL (4.8-10.8) Red Blood Count 4.52 M/UL (4.70-6.10) L Hemoglobin 15.0 G/DL (14.2-18.0) Hematocrit 43.8 % (42.0-52.0) Mean Corpuscular Volume 97 FL (80-99) Mean Corpuscular Hemoglobin 33.2 PG (27.0-31.0) H Mean Corpuscular Hemoglobin Concent 34.2 G/DL (32.0-36.0) Red Cell Distribution Width 11.1 % (11.6-14.8) L Platelet Count 257 K/UL (150-450) Mean Platelet Volume 7.3 FL (6.5-10.1) Neutrophils (%) (Auto) 68.8 % (45.0-75.0) Lymphocytes (%) (Auto) 21.1 % (20.0-45.0) Monocytes (%) (Auto) 6.4 % (1.0-10.0) Eosinophils (%) (Auto) 2.5 % (0.0-3.0) Basophils (%) (Auto) 1.1 % (0.0-2.0) Sodium Level 139 MMOL/L (136-145) Potassium Level 4.3 MMOL/L (3.5-5.1) Chloride Level 106 MMOL/L (98-107) Carbon Dioxide Level 26 MMOL/L (21-32) Anion Gap 7 mmol/L (5-15) Blood Urea Nitrogen 17 mg/dL (7-18) Creatinine 0.9 MG/DL (0.55-1.30) Estimat Glomerular Filtration Rate > 60 mL/min (>60) Glucose Level 110 MG/DL (74-106) H Lactic Acid Level 0.40 mmol/L (0.4-2.0) Calcium Level 9.1 MG/DL (8.5-10.1) Total Bilirubin 0.3 MG/DL (0.2-1.0) Aspartate Amino Transf (AST/SGOT) 14 U/L (15-37) L Alanine Aminotransferase (ALT/SGPT) 34 U/L (12-78) Alkaline Phosphatase 56 U/L (46-116) Total Creatine Kinase 55 U/L (26-308) Creatine Kinase MB 1.1 NG/ML (0.0-3.6) Creatine Kinase MB Relative Index 2.0 Troponin I 0.000 ng/mL (0.000-0.056) Total Protein 6.5 G/DL (6.4-8.2) Albumin 3.6 G/DL (3.4-5.0) Globulin 2.9 g/dL Albumin/Globulin Ratio 1.2 (1.0-2.7) Urine Color Pale yellow Urine Appearance Clear Urine pH 6 (4.5-8.0) Urine Specific [place] 1.010 (1.005-1.035) Urine Protein Negative (NEGATIVE) Urine Glucose (UA) Negative (NEGATIVE) Urine Ketones Negative (NEGATIVE) Urine Occult Blood Negative (NEGATIVE) Urine Nitrite Negative (NEGATIVE) Urine Bilirubin Negative (NEGATIVE) Urine Urobilinogen Normal MG/DL (0.0-1.0) Urine Leukocyte Esterase Negative (NEGATIVE) Height (Feet): 5 Height (Inches): 11.00 Weight (Pounds): 180 Medications Current Medications Medications (Trade) Dose Ordered Sig/Sharon Route PRN Reason Start Time Stop Time Status Last Admin Dose Admin Albuterol/ Ipratropium (Albuterol/ Ipratropium) 3 ml Q4H PRN HHN dyspnea 11/13/17 09:30 11/18/17 09:29 11/13/17 21:03 Aspirin (ASA) 81 mg DAILY ORAL 11/13/17 09:30 12/13/17 09:29 11/13/17 10:39 Benztropine Mesylate (Cogentin) 2 mg BID ORAL 11/13/17 09:30 12/13/17 09:29 11/13/17 17:38 Carbamazepine (TEGretol) 200 mg Q8HR ORAL 11/13/17 14:00 12/13/17 09:29 11/13/17 21:44 Dextrose (Dextrose 50%) STAT PRN IV Hypoglycemia 11/13/17 09:30 12/13/17 09:29 Dextrose (Dextrose 50%) STAT PRN IV Hypoglycemia 11/13/17 09:30 12/13/17 09:29 Gabapentin (Neurontin) 600 mg THREE TIMES A DAY ORAL 11/13/17 09:30 12/13/17 09:29 11/13/17 17:38 Heparin Sodium (Porcine) (Heparin 5000 units/ml) 5,000 units EVERY 12 HOURS SUBQ 11/13/17 09:30 12/13/17 09:29 11/13/17 20:22 Lactulose (Cephulac) 20 gm DAILY ORAL 11/13/17 09:30 12/13/17 09:29 11/13/17 10:38 Lamotrigine (LaMICtal) 50 mg Q12HR ORAL 11/14/17 10:00 12/14/17 09:59 Levetiracetam (Keppra) 250 mg Q8HR ORAL 11/13/17 14:00 12/13/17 13:59 11/13/17 21:43 Lorazepam (Ativan 2mg/ml 1ml) 0.5 mg Q4H PRN IV For Anxiety 11/13/17 09:30 11/20/17 09:29 11/13/17 20:55 Methylprednisolone Sodium Succinate (Solu-MEDROL) 60 mg EVERY 6 HOURS IV 11/13/17 12:00 12/13/17 11:59 11/13/17 17:39 Morphine Sulfate (Morphine Sulfate) 2 mg Q4H PRN IVP severe pain 7-10 11/13/17 09:30 11/20/17 09:29 11/13/17 17:50 Nitroglycerin (Ntg) 0.4 mg Q5M X 3 DOSES PRN SL Prn Chest Pain 11/13/17 09:30 12/13/17 09:29 Ondansetron HCl (Zofran) 4 mg Q6H PRN IVP Nausea & Vomiting 11/13/17 09:30 12/13/17 09:29 Oxcarbazepine (Trileptal) 150 mg Q12HR ORAL 11/13/17 09:30 12/13/17 09:29 11/13/17 20:21 Piperacillin Sod/ Tazobactam Sod 3.375 gm/Sodium Chloride 110 ml @ 27.5 mls/hr Q8H IVPB 11/13/17 11:00 11/20/17 10:59 11/13/17 18:43 Quetiapine Fumarate (SEROquel) 50 mg TWICE A DAY ORAL 11/13/17 10:00 12/13/17 09:59 11/13/17 17:40 Risperidone (RisperDAL) 2 mg BID ORAL 11/13/17 09:30 12/13/17 09:29 11/13/17 17:40 Tamsulosin HCl (Flomax) 0.4 mg BEDTIME ORAL 11/13/17 21:00 12/13/17 20:59 11/13/17 20:21 Temazepam (Restoril) 15 mg HSPRN PRN ORAL Insomnia 11/13/17 21:00 11/20/17 20:59 Trazodone HCl (Desyrel) 50 mg QHS ORAL 11/13/17 21:00 12/13/17 20:59 11/13/17 20:21 Patricio Strong MD Nov 13, 2017 22:10
[2017-11-14] MEDS: LORazepam Inj 2mg/ml 1ml IV PRN (01:32)
[2017-11-14] MEDS: Morphine Sulfate 2mg/ml Inj IVP PRN (02:43)
[2017-11-14] MEDS: Zoysn 3.37gm in NS 100ML IVPB SCH (03:00)
--- NOTE | 2017-11-16 11:43 | Discharge Summary ---
Discharge Summary Discharge Summary _ DATE OF ADMISSION: 11/13/2017 DATE OF DISCHARGE: 11/14/2017 - patient signed against medical advice REASON FOR ADMISSION: 42 years old male with past medical history of COPD, hypertension, Parkinson disease, seizure disorder, history of priapism, was sent from the residential facility for evaluation. Patient was feverish , was coughing . Laboratory work up at the facility revealed leukocytosis with WBC-15. Patient was sent for evaluation. Upon evaluation in emergency department, patient was afebrile . He was placed on supplemental oxygen 2 L via nasal cannula , saturating 95%. Laboratory workup revealed no leukocytosis, stable hemoglobin and hematocrit, stable electrolytes and renal parameters. Lactic acid 0.4. Troponin negative . Urinalysis - no evidence of UTI . Chest x-ray no acute cardiopulmonary pathology. Patient was given breathing treatment and loading dose of steroid. Patient also complained of the pain in the right arm. X-ray of the right arm revealed no evidence of acute fracture . Patient admitted with COPD exacerbation, hypertension, seizure disorder , history of priapism. CONSULTANTS: pulmonary Dr. Strong HOSPITAL COURSE: Patient admitted to medical surgical floor. Patient started on on IV steroids with gradual tapering. Supplemental oxygen provided and titrated to keep pulse oximetry above 92% . Pulmonary toilet via handheld nebulizing provided . Patient started on empiric antibiotic. Sputum culture not collected Blood culture negative. Seizure precautions maintained. No seizure activity while in the hospital Lamictal ,Keppra and Tegretol were continued Patient was working with physical and occupational therapists. DVT prophylaxis provided . Blood pressure was closely monitored. Psychiatric medication regimen was continued. Psychiatric evaluation was pending. Dietary evaluation requested. Pain management provided . Bowel regimen instituted . Supportive care provided . Neurology urology and psychiatrist consults were requested. Patient decided to sign AGAINST MEDICAL ADVICE The risks and consequences of signing AGAINST MEDICAL ADVICE were discussed with patient . The patient verbalized understanding, signed the form and left FINAL DIAGNOSES: COPD exacerbation hypertension seizure disorder history of priapism I have been assigned to dictate discharge summary for this account. I was not involved in the patient's management. Ana Hernández NP Nov 16, 2017 11:43
== END 2017-11-14 03:10 | disposition left against medical advice (07) | DRG 192 ==
LOC: EDBD 04:48 → EMR 05:08 → 4E 06:22 → EDBEDREQ 07:12 → 4E 09:26
DX: J44.1 Chronic obstructive pulmonary disease with (acute) exacerbation (principal); I10 Essential (primary) hypertension; G40.909 Epilepsy, unspecified, not intractable, without status epilepticus; Z88.8 Allergy status to other drugs, medicaments and biological substances; R53.1 Weakness; G20 Parkinson's disease
CPT/HCPCS: 36415; 71045; 80053; 80299; 81003; 82550; 82553; 82962; 83605; 84484; 85025; 87040; 87070; 87081; 87205; 94640; 94664; 94760; 99285; J7620

== ENCOUNTER 2017-11-29 15:26 | Emergency (ER) | payer MEDICARE, OTHER ==
[~2017-11-29] VITALS: Ht 177.8 cm; Wt 81.6 kg
[~2017-11-29 15:26] MED LIST changes: +ADVAIR HFA 45-212 GM INH; +ARTIFICIAL TEAR15 ML BOTH EYES; +BISACODYL5 MG RC; +GABAPENTIN600 MG ORAL; +LEVETIRACETAM250 MG PO; +MILK OF MA400 MG/51 ORAL; +MORPHINE SULFAT15 MG PO; +NASONEX17 GM NASAL; +PANTOPRAZOLE SO40 MG ORAL; +PROZAC20 MG ORAL; +RISPERDAL2 MG ORAL; +SEROQUEL25 MG ORAL; +TAMSULOSIN HCL0.4 MG ORAL; +TEMAZEPAM15 MG ORAL; +TRILEPTAL600 MG PO
[2017-11-29 15:29] VITALS: BP 134/87
[2017-11-29 16:17] LABS: BASOPHILS % (AUTO) 1.1 % (0.0-2.0); EOSINOPHILS % (AUTO) 1.8 % (0.0-3.0); HEMATOCRIT 41.8 % (42.0-52.0); LYMPHOCYTES % (AUTO) 17.4 % (20.0-45.0); MEAN CORPUSCULAR VOLUME 96 FL (80-99); MONOCYTES % (AUTO) 6.6 % (1.0-10.0); NEUTROPHILS % (AUTO) 73.1 % (45.0-75.0); PLATELET COUNT 235 K/UL (150-450); RED BLOOD COUNT 4.35 M/UL (4.70-6.10); RED CELL DISTRIBUTION WIDTH 11.5 % (11.6-14.8)
[2017-11-29 16:25] LABS: ANION GAP 7 mmol/L (5-15); BLOOD UREA NITROGEN 13 mg/dL (7-18); CALCIUM 8.6 MG/DL (8.5-10.1); CARBON DIOXIDE 26 MMOL/L (21-32); CHLORIDE 106 MMOL/L (98-107); CREATININE 1.1 MG/DL (0.55-1.30); POTASSIUM 3.9 MMOL/L (3.5-5.1); SODIUM 139 MMOL/L (136-145)
[2017-11-29 16:30] LABS: ALANINE AMINOTRANSFERASE 24 U/L (12-78); ALBUMIN 3.7 G/DL (3.4-5.0); ALBUMIN/GLOBULIN RATIO 1.2 (1.0-2.7); ALKALINE PHOSPHATASE 55 U/L (46-116); ASPARTATE AMINO TRANSFERASE 14 U/L (15-37); BILIRUBIN,TOTAL 0.2 MG/DL (0.2-1.0)
--- NOTE | 2017-11-29 17:58 | Emergency Room Report ---
History of Present Illness General Chief Complaint: Pain Source: Medical Record Present Illness HPI Patient is a 42-year-old male chronically ill who sent from his care center for pain to the bilateral lower and right upper extremity. Per the patient this pain has been there for quite some time and the etiology of which is unclear. He feels it is related to his diagnosis of Parkinson's. The patient was sent from his care center by his primary care physician Dr. Gavin who wanted the patient admitted for intractable pain and neurologic evaluation. However, upon arrival the patient is refusing to be admitted. He states he wants to get his neurologic consultation as an outpatient. All he wants is a change of his dressing for his volar splint on the right arm which he states is secondary to a sprain. He does complain of pain but once no other workup done. Allergies: Coded Allergies: CHLORPROMAZINE (Verified Allergy, Unknown, 11/13/17) DIVALPROEX SODIUM (Verified Allergy, Unknown, 04/17/17) FISH CONTAINING PRODUCTS (Verified Allergy, Unknown, 06/20/17) Patient History Past Medical History: see triage record, old chart reviewed Past Surgical History: none Pertinent Family History: none Social History: Denies: smoking, alcohol use, drug use Nursing Documentation-[facility] Past Medical History: No History, Except For Hx Cardiac Problems: Yes Hx Hypertension: Yes Hx Asthma: Yes Hx COPD: Yes Hx Cancer: No Hx Gastrointestinal Problems: Yes - GERD Hx Neurological Problems: Yes - Parkinsons, polyneuropathy Hx Parkinson's Disease: Yes Hx Seizures: Yes Hx Epilepsy: Yes Hx Peripheral Neuropathy: Yes Hx Spinal Cord Injury: Yes Hx Head Trauma: Yes Hx Memory Loss: Yes Hx Dizziness: Yes Hx Syncope: Yes Hx Headaches: Yes Hx Weakness: Yes Review of Systems Constitutional: Denies: no symptoms, see HPI, chills, sweats, fever, malaise, weakness, other Eye: Denies: no symptoms, see HPI, eye pain, blurred vision, tearing, double vision, nose pain, nose congestion, acuity changes, discharge, other ENT: Denies: no symptoms, see HPI, ear pain, ear discharge, nose pain, nose congestion, throat pain, throat swelling, mouth pain, hearing loss, nasal discharge, other Respiratory: Denies: no symptoms, see HPI, cough, orthopnea, shortness of breath, stridor, wheezing, ELIZABETH, sputum, other Cardiovascular: Denies: no symptoms, see HPI, chest pain, edema, palpitations, syncope, PND, other Gastrointestinal: Denies: no symptoms, see HPI, abdominal pain, constipation, diarrhea, nausea, vomiting, melena, hematemesis, other Musculoskeletal: Reports: see HPI, muscle pain; Denies: no symptoms, back pain , gout, joint pain, joint swelling, muscle stiffness, other Skin: Denies: no symptoms, see HPI, rash, change in color, change in hair/nails , dryness, lesions, other Neurological: Reports: see HPI, paresthesia; Denies: no symptoms, headache, numbness, seizure, tingling, tremors, focal weakness, syncope, dizziness, other Endocrine: Denies: no symptoms, see HPI, excessive sweating, flushing, intolerance to temperature, increased thirst, increased urine, unexplained weight loss, other Physical Exam Vital Signs Date Time Temp Pulse Resp B/P (MAP) Pulse Ox O2 Delivery O2 Flow Rate FiO2 11/29/17 15:26 98.2 94 20 134/87 97 Nasal Cannula 2.0 98.2 Sp02 EP Interpretation: reviewed, normal General Appearance: no apparent distress, alert, GCS 15, non-toxic Head: normocephalic, atraumatic Eyes: bilateral eye normal inspection, bilateral eye PERRL ENT: hearing grossly normal, normal pharynx, no angioedema, normal voice Neck: full range of motion, supple/symm/no masses Respiratory: chest non-tender, lungs clear, normal breath sounds, speaking full sentences Cardiovascular #1: regular rate, rhythm, no edema Cardiovascular #2: 2+ carotid (R), 2+ carotid (L), 2+ radial (R), 2+ radial (L) , 2+ dorsalis pedis (R), 2+ dorsalis pedis (L) Gastrointestinal: normal bowel sounds, non tender, soft, non-distended, no guarding, no rebound Rectal: deferred Genitourinary: normal inspection, no CVA tenderness Musculoskeletal: back normal, gait/station normal, normal range of motion, non- tender, calf tenderness, other - Patient's right forearm and wrist are in a volar splint which appears intact although the bandages are dirty. Patient's fingers have full range of motion with Refill less than 2 seconds and normal sensation Neurologic: alert, oriented x3, responsive, motor strength/tone normal, sensory intact, speech normal Psychiatric: judgement/insight normal, memory normal, mood/affect normal, no suicidal/homicidal ideation Reflexes: 3+ bicep (R), 3+ bicep (L), 3+ tricep (R), 3+ tricep (L), 3+ knee (R) , 3+ knee (L) Skin: normal color, no rash, warm/dry, well hydrated Lymphatic: no adenopathy Medical Decision Making Diagnostic Impression: Primary Impression: Chronic pain Qualified Codes: G89.4 - Chronic pain syndrome ER Course Patient initially refused any workup however I wasn't able to convince him to except lab studies. Patient's labs show no evidence of acute abnormality. I also attempted to run duplex exams of the bilateral lower extremities and right upper extremity over the patient refuses this as well. Given its patient is refusing all care and does not want to be admitted to hospital, he is awake alert and oriented 3 and appears able to make his own health care decisions at this time, we will send him back to his facility. Of note the patient was given 30 mg IV Toradol at his request after labs were checked for pain. Laboratory Tests Test 11/29/17 16:05 White Blood Count 10.0 K/UL (4.8-10.8) Red Blood Count 4.35 M/UL (4.70-6.10) L Hemoglobin 15.0 G/DL (14.2-18.0) Hematocrit 41.8 % (42.0-52.0) L Mean Corpuscular Volume 96 FL (80-99) Mean Corpuscular Hemoglobin 34.5 PG (27.0-31.0) H Mean Corpuscular Hemoglobin Concent 35.9 G/DL (32.0-36.0) Red Cell Distribution Width 11.5 % (11.6-14.8) L Platelet Count 235 K/UL (150-450) Mean Platelet Volume 7.5 FL (6.5-10.1) Neutrophils (%) (Auto) 73.1 % (45.0-75.0) Lymphocytes (%) (Auto) 17.4 % (20.0-45.0) L Monocytes (%) (Auto) 6.6 % (1.0-10.0) Eosinophils (%) (Auto) 1.8 % (0.0-3.0) Basophils (%) (Auto) 1.1 % (0.0-2.0) Sodium Level 139 MMOL/L (136-145) Potassium Level 3.9 MMOL/L (3.5-5.1) Chloride Level 106 MMOL/L (98-107) Carbon Dioxide Level 26 MMOL/L (21-32) Anion Gap 7 mmol/L (5-15) Blood Urea Nitrogen 13 mg/dL (7-18) Creatinine 1.1 MG/DL (0.55-1.30) Estimate Glomerular Filtration Rate > 60 mL/min (>60) Glucose Level 95 MG/DL (74-106) Calcium Level 8.6 MG/DL (8.5-10.1) Total Bilirubin 0.2 MG/DL (0.2-1.0) Aspartate Amino Transferase (AST) 14 U/L (15-37) L Alanine Aminotransferase (ALT) 24 U/L (12-78) Alkaline Phosphatase 55 U/L (46-116) Total Protein 6.8 G/DL (6.4-8.2) Albumin 3.7 G/DL (3.4-5.0) Globulin 3.1 g/dL Albumin/Globulin Ratio 1.2 (1.0-2.7) Last Vital Signs Date Time Temp Pulse Resp B/P (MAP) Pulse Ox O2 Delivery O2 Flow Rate FiO2 11/29/17 15:29 98.2 94 20 134/87 97 Nasal Cannula 2.0 98.2 Disposition: XFER SNF Condition: Stable Referrals: Curtis Gavin DO (PCP) Patient Instructions: Chronic Pain Jeb Ott MD Nov 29, 2017 17:58
[2017-11-29] MEDS ORDERED: Ketorolac 30mg Inj IV ONE (18:00)
[2017-11-29 20:49] VITALS: BP 138/80
[2017-11-29 20:50] VITALS: BP 134/87
== END 2017-11-29 20:52 ==
LOC: EDBD 15:26 → EMR 16:03
DX: G89.4 Chronic pain syndrome (principal); G20 Parkinson's disease; Z88.8 Allergy status to other drugs, medicaments and biological substances; I10 Essential (primary) hypertension; J44.9 Chronic obstructive pulmonary disease, unspecified; K21.9 Gastro-esophageal reflux disease without esophagitis; G62.9 Polyneuropathy, unspecified
CPT/HCPCS: 36415; 80053; 85025; 96374; 99283; J1885

== ENCOUNTER 2018-01-28 19:26 | Emergency (ER) | payer MEDICARE, OTHER ==
[~2018-01-28] VITALS: Ht 188 cm; Wt 76.7 kg
--- NOTE | 2018-01-28 20:03 | Emergency Room Report ---
History of Present Illness General Chief Complaint: Upper Extremity Injury Present Illness HPI 42-year-old male patient presents ER brought in by ambulance complaining of right shoulder pain for the past few hours. States that he is an assisted- living facility and when they attempted to move him to take him to his physician appointment pulled his right arm and caused him pain. patient reports history of right shoulder pain and right wrist pain. States that he was going to see his physician for joint injections for pain. States he normally takes morphine for pain. Denies hitting his head or loss consciousness. Denies fever , chest pain, shortness of breath. reports history of Parkinson's disease. States received pain medicine prior to arrival to ER. Allergies: Coded Allergies: CHLORPROMAZINE (Verified Allergy, Unknown, 11/13/17) CHLORPROPAMIDE (Unverified Allergy, Unknown, 01/28/18) DIVALPROEX SODIUM (Verified Allergy, Unknown, 04/17/17) FISH CONTAINING PRODUCTS (Verified Allergy, Unknown, 06/20/17) FISH OIL (Unverified Allergy, Unknown, 01/28/18) Patient History Past Medical History: see triage record Reviewed Nursing Documentation: PMH: Agreed; PSxH: Agreed Nursing Documentation-PMH Hx Cardiac Problems: Yes Hx Hypertension: Yes Hx COPD: Yes Hx Cancer: No Hx Gastrointestinal Problems: Yes - GERD History Of Psychiatric Problem: Yes - anxiety, schizophrenia, depression Hx Neurological Problems: Yes - Encephalopathy Hx Parkinson's Disease: Yes Hx Seizures: Yes Hx Epilepsy: Yes Hx Peripheral Neuropathy: Yes Hx Spinal Cord Injury: Yes Hx Head Trauma: Yes Hx Memory Loss: Yes Hx Dizziness: Yes Hx Syncope: Yes Hx Headaches: Yes Hx Weakness: Yes Review of Systems All Other Systems: negative except mentioned in HPI Physical Exam Vital Signs Date Time Temp Pulse Resp B/P (MAP) Pulse Ox O2 Delivery O2 Flow Rate FiO2 01/28/18 19:19 98.3 100 20 121/76 95 Nasal Cannula 2.0 98.2 Sp02 EP Interpretation: reviewed, normal General Appearance: well appearing, no apparent distress, alert, GCS 15, non- toxic Head: normocephalic, atraumatic Eyes: bilateral eye normal inspection, bilateral eye PERRL ENT: hearing grossly normal, normal pharynx, no angioedema, normal voice, uvula midline, moist mucus membranes Neck: full range of motion Respiratory: lungs clear, normal breath sounds, no rhonchi, no respiratory distress, no accessory muscle use, no wheezing, speaking full sentences Cardiovascular #1: regular rate, rhythm, no edema Cardiovascular #2: 2+ radial (R), 2+ radial (L) Musculoskeletal: back normal, digits/nails normal, gait/station normal, normal range of motion, other - negative sulcus sign, negative skin tenting, NVI, cap refill <2seconds, tender - right lateral shoulder over the humeral head Neurologic: alert, oriented x3, responsive, motor strength/tone normal, sensory intact Psychiatric: mood/affect normal Skin: no rash Medical Decision Making PA Attestation Dr. Rizvi is my supervising Physician whom patient management has been discussed with. Diagnostic Impression: Primary Impression: Shoulder sprain ER Course Pt. presents to the ED c/o right shoulder pain. Ddx considered but are not limited to fracture, sprain, strain, contusion, dislocation. No erythema, no warmth to touch, no fever, nontoxic appearing, low suspicion for septic joint. Consult with Dr. Rizvi who was contacted by Dr. Curtis Gavin, requesting we order basic labs ordered on this patient, ordered CBC, CMP, UA. Vital signs: are WNL, pt. is afebrile Ordered X-ray. ER COURSE Provided with pain medication. CBC and CMP unremarkable, no elevation WBCs her LFTs. UA unremarkable, no signs of infection. informed Dr. Gavin of patient lab results. An X-ray of the right shoulder shows no acute fracture or dislocation per the preliminary reading. Likely sprain causing pain symptoms. Sling was applied to the right arm and was checked afterwards by me showing good alignment and support with distal neurovascular functioning intact. Patient instructed on RICE method: rest, ice, compression, elevation. Patient instructed on rest, ice and heat. Patient instructed to be WBAT Contact information for orthopedic urgent care provided, follow-up with urgent care if unable to followup with primary care provider and get referral to lan support specialist. Followup with primary care provider. Discuss referral to ortho/pain management/ PT as needed. Discuss further imaging with MRI/CT as needed. DISCHARGE: -Rx provided for Ibuprofen for pain symptoms. At this time pt. is stable for d/c to home. Patient is resting comfortably, in no acute distress, nontoxic appearing, talking without difficulty. Will provide printed patient care instructions, and any necessary prescriptions. Patient instructed to follow with primary care provider in 3 - 5 days and to request further follow-up as needed. Care plan and follow up instructions have been discussed with the patient prior to discharge. Take medications as directed. Patient questions asked and answered. Patient reports understanding and agreement to treatment plan. ER precautions given, patient instructed to return to ER immediately for any new or worsening of symptoms. - Please note that this Emergency Department Report was dictated using [employer] cleaner technology software, occasionally this can lead to erroneous entry secondary to interpretation by the dictation equipment. Labs Test 01/28/18 20:25 01/28/18 21:00 White Blood Count 8.4 K/UL (4.8-10.8) Red Blood Count 4.61 M/UL (4.70-6.10) Hemoglobin 15.5 G/DL (14.2-18.0) Hematocrit 43.8 % (42.0-52.0) Mean Corpuscular Volume 95 FL (80-99) Mean Corpuscular Hemoglobin 33.6 PG (27.0-31.0) Mean Corpuscular Hemoglobin Concent 35.4 G/DL (32.0-36.0) Red Cell Distribution Width 10.7 % (11.6-14.8) Platelet Count 235 K/UL (150-450) Mean Platelet Volume 7.9 FL (6.5-10.1) Neutrophils (%) (Auto) 69.3 % (45.0-75.0) Lymphocytes (%) (Auto) 20.7 % (20.0-45.0) Monocytes (%) (Auto) 6.0 % (1.0-10.0) Eosinophils (%) (Auto) 3.1 % (0.0-3.0) Basophils (%) (Auto) 1.0 % (0.0-2.0) Sodium Level 141 MMOL/L (136-145) Potassium Level 4.0 MMOL/L (3.5-5.1) Chloride Level 106 MMOL/L (98-107) Carbon Dioxide Level 27 MMOL/L (21-32) Anion Gap 8 mmol/L (5-15) Blood Urea Nitrogen 10 mg/dL (7-18) Creatinine 0.9 MG/DL (0.55-1.30) Estimat Glomerular Filtration Rate > 60 mL/min (>60) Glucose Level 90 MG/DL (74-106) Calcium Level 9.4 MG/DL (8.5-10.1) Total Bilirubin 0.3 MG/DL (0.2-1.0) Aspartate Amino Transf (AST/SGOT) 13 U/L (15-37) Alanine Aminotransferase (ALT/SGPT) 14 U/L (12-78) Alkaline Phosphatase 64 U/L (46-116) Total Protein 6.9 G/DL (6.4-8.2) Albumin 3.6 G/DL (3.4-5.0) Globulin 3.3 g/dL Albumin/Globulin Ratio 1.1 (1.0-2.7) Urine Color Pale yellow Urine Appearance Clear Urine pH 7 (4.5-8.0) Urine Specific Gregory 1.005 (1.005-1.035) Urine Protein Negative (NEGATIVE) Urine Glucose (UA) Negative (NEGATIVE) Urine Ketones Negative (NEGATIVE) Urine Blood Negative (NEGATIVE) Urine Nitrite Negative (NEGATIVE) Urine Bilirubin Negative (NEGATIVE) Urine Urobilinogen Normal MG/DL (0.0-1.0) Urine Leukocyte Esterase Negative (NEGATIVE) Other X-Ray Diagnostic Results Other X-Ray Diagnostic Results : X-Ray ordered: right shoulder # of Views/Limited Vs Complete: 3 View Indication: Pain EP Interpretation: Yes PA Xray: Interpretation reviewed, by supervising MD, and agrees with findings. Interpretation: no dislocation, no soft tissue swelling, no fractures Impression: No acute disease KATHY Scribnish Text Robel Dinero PA-C Last Vital Signs Date Time Temp Pulse Resp B/P (MAP) Pulse Ox O2 Delivery O2 Flow Rate FiO2 01/28/18 19:19 98.3 100 20 121/76 95 Nasal Cannula 2.0 98.2 Disposition: HOME, SELF-CARE Condition: Stable Scripts Ibuprofen* (MOTRIN*) 600 Mg Tablet 600 MG ORAL Q8H PRN for For Pain, #30 TAB 0 Refills Prov: Savage Dinero PAbiodun 01/28/18 Patient Instructions: Shoulder Sprain Additional Instructions: Patient instructed to follow up with primary care provider and discuss further referral to orthopedics/physical therapy/pain management as needed. If unable to followup with PCP, followup with orthopedic urgent care in 5-7 days , call to schedule appointment. Instructed patient on benefits of physical therapy, instructed to request referral from primary care provider. Patient instructed on RICE method: rest, ice, compression, elevation. Patient instructed to WBAT. Take medications as directed. Patient questions asked and answered. ER precautions given, patient instructed to return to ER immediately for any new or worsening of symptoms. [facility] [address] [facility], [address] [email or web address] Savage Dinero Jan 28, 2018 20:03
[2018-01-28 20:44] LABS: EOSINOPHILS % (AUTO) 3.1 % (0.0-3.0); HEMATOCRIT 43.8 % (42.0-52.0); HEMOGLOBIN 15.5 G/DL (14.2-18.0); LYMPHOCYTES % (AUTO) 20.7 % (20.0-45.0); MEAN CORPUSCULAR VOLUME 95 FL (80-99); NEUTROPHILS % (AUTO) 69.3 % (45.0-75.0); PLATELET COUNT 235 K/UL (150-450); RED BLOOD COUNT 4.61 M/UL (4.70-6.10); RED CELL DISTRIBUTION WIDTH 10.7 % (11.6-14.8); WHITE BLOOD COUNT 8.4 K/UL (4.8-10.8)
[2018-01-28 21:05] LABS: ANION GAP 8 mmol/L (5-15); BLOOD UREA NITROGEN 10 mg/dL (7-18); CALCIUM 9.4 MG/DL (8.5-10.1); CARBON DIOXIDE 27 MMOL/L (21-32); CHLORIDE 106 MMOL/L (98-107); CREATININE 0.9 MG/DL (0.55-1.30); SODIUM 141 MMOL/L (136-145)
[2018-01-28 21:10] LABS: ALANINE AMINOTRANSFERASE 14 U/L (12-78); ALBUMIN 3.6 G/DL (3.4-5.0); ALBUMIN/GLOBULIN RATIO 1.1 (1.0-2.7); ALKALINE PHOSPHATASE 64 U/L (46-116); ASPARTATE AMINO TRANSFERASE 13 U/L (15-37); BILIRUBIN,TOTAL 0.3 MG/DL (0.2-1.0)
[2018-01-28 21:15] LABS: APPEARANCE,URINE CLEAR; BILIRUBIN, URINE NEGATIVE (NEGATIVE); COLOR,URINE PALE YELLOW; GLUCOSE, URINE (UA) NEGATIVE (NEGATIVE); KETONES,URINE NEGATIVE (NEGATIVE); LEUKOCYTE ESTERASE ,URINE NEGATIVE (NEGATIVE); NITRITE,URINE NEGATIVE (NEGATIVE); PH,URINE 7 (4.5-8.0); PROTEIN,URINE NEGATIVE (NEGATIVE); UROBILINOGEN,URINE NORMAL MG/DL (0.0-1.0)
[2018-01-28 21:17] VITALS: BP 121/76
[2018-01-28] MEDS ORDERED: IBUPROFEN600 MG ORAL (21:19)
[2018-01-28 22:25] VITALS: BP 126/72
--- NOTE | 2018-01-29 08:43 | Diagnostic Imaging Report ---
Indication: Right shoulder pain Technique: 3 views of the right shoulder Comparison: none Findings: No acute fractures. No dislocations. The joint spaces are preserved Impression: Negative
== END 2018-01-28 22:25 | disposition home or self-care (01) ==
LOC: EDBD 19:26 → EMR 19:52
DX: S43.401A Unspecified sprain of right shoulder joint, initial encounter (principal); X50.9XXA Other and unspecified overexertion or strenuous movements or postures, initial encounter; Y93.89 Activity, other specified; Y92.89 Other specified places as the place of occurrence of the external cause; I10 Essential (primary) hypertension; J44.9 Chronic obstructive pulmonary disease, unspecified; G20 Parkinson's disease; Z86.79 Personal history of other diseases of the circulatory system
CPT/HCPCS: 36415; 80053; 81003; 82962; 85025; 99284

== ENCOUNTER 2018-05-23 02:03 | Emergency (ER) | payer MEDICARE, OTHER ==
[~2018-05-23] VITALS: Ht 162.6 cm; Wt 81.6 kg
[~2018-05-23 02:03] MED LIST changes: +IBUPROFEN600 MG ORAL
--- NOTE | 2018-05-23 02:04 | NUR ---
ED Nurse Note: RECIEVED PT FROM SNF FACILITY WITH C/O UPPER NECK AND BACK AND HEAD PAIN S/P FALL, WAS REPORTED PT FELL WHILE ATTEMPTING TO TRANSFER FROM HIS WHEELCHAIR BACK TO BED, REPORTED NO INJURY BUT PT STATES HE HIT HIS HEAD HARD ON BEDSIDE TABLE, PT ALSO NOTED WITH BLEEDING AROUND LIPS AND MOUTH, HAS LARGE LACERATION TO RIGHT LOWER, BLEEDING STOPPED, PT ARRIVED IN C-COLLAR AND ON BACK BOARED PLACED BY AMBULANCE, TP FALL WAS 2100 YESTERDAY EVENING, PT IMMEDIATELY RELEASED AND ASSESSED BY MD, PLACED ON CARDIAC MONITORING AND BACK BOARD REMOVED BY MD, WILL CONITNUE TO CLOSELY MONTIOR WHILE WAITING FOR IMAGING.
[2018-05-23] MEDS ORDERED: Morphine Sulfate 4mg/ml Inj (IV/IM USE ONLY) IM ONE (02:15)
--- NOTE | 2018-05-23 02:19 | Emergency Room Report ---
History of Present Illness General Chief Complaint: Pain Source: Patient, Medical Record, EMS Present Illness HPI Patient is a detention patient. Patient has a history of advanced parkinsonism and is wheelchair-bound. He was being transferred from wheelchair to bed and he fell backwards. Patient states that he hit his head. Patient's complaining headache neck pain and lower back pain. He denies any loss of consciousness. No other complaints are noted. Patient's primary care physician is Dr. Curtis Gavin and he advised the patient detention to send the patient here for further evaluation. No other modifying factors. No other associated signs and symptoms. No other complaints were noted. Allergies: Coded Allergies: CHLORPROMAZINE (Verified Allergy, Unknown, 11/13/17) CHLORPROPAMIDE (Unverified Allergy, Unknown, 01/28/18) DIVALPROEX SODIUM (Verified Allergy, Unknown, 04/17/17) FISH CONTAINING PRODUCTS (Verified Allergy, Unknown, 06/20/17) FISH OIL (Unverified Allergy, Unknown, 01/28/18) Patient History Past Medical History: HTN, other - Parkinson's disease Past Surgical History: none Social History Narrative stays at a detention Reviewed Nursing Documentation: PMH: Agreed; PSxH: Agreed Nursing Documentation-PMH Past Medical History: No History, Except For Hx Cardiac Problems: Yes Hx Hypertension: Yes Hx Asthma: Yes Hx COPD: Yes Hx Cancer: Yes - BPH Hx Gastrointestinal Problems: Yes - GERD History Of Psychiatric Problem: Yes - schizophrenia,depression Hx Neurological Problems: Yes - parkinsons, muscle weakness,overactive bladder Hx Parkinson's Disease: Yes Hx Seizures: Yes Hx Epilepsy: Yes Hx Peripheral Neuropathy: Yes Hx Spinal Cord Injury: Yes Hx Head Trauma: Yes Hx Memory Loss: Yes Hx Dizziness: Yes Hx Syncope: Yes Hx Headaches: Yes Hx Weakness: Yes Review of Systems All Other Systems: negative except mentioned in HPI Physical Exam Vital Signs Date Time Temp Pulse Resp B/P (MAP) Pulse Ox O2 Delivery O2 Flow Rate FiO2 05/23/18 01:44 98.4 84 16 140/90 96 Room Air Sp02 EP Interpretation: reviewed, normal General Appearance: alert, mild distress, thin Head: atraumatic Eyes: bilateral eye normal inspection ENT: normal ENT inspection, hearing grossly normal, normal voice Neck: other - in c-collar, tender - Diffusely but no bony abnormality Respiratory: normal inspection, lungs clear, normal breath sounds, no respiratory distress, no retraction, no wheezing Cardiovascular #1: regular rate, rhythm, no edema Gastrointestinal: normal inspection, normal bowel sounds, non tender, soft, no guarding, no hernia Genitourinary: no CVA tenderness Musculoskeletal: normal inspection, back normal, normal range of motion Neurologic: normal inspection, alert, responsive, speech normal Psychiatric: normal inspection, judgement/insight normal, mood/affect normal Skin: normal inspection, normal color, no rash Medical Decision Making Diagnostic Impression: Primary Impression: Fall Additional Impression: Back strain ER Course Patient presents emergency department today complaining of fall. Patient apparently had a mechanical fall the transfer from his wheelchair to his bed. He landed on his back. He is complaining of headache neck pain and lower back pain. Differential diagnoses include fracture dislocation versus strain. Patient's presentation here because of the pain required extensive evaluation. CT of the head neck lower back as well as x-rays of pelvis were obtained. All of which were negative. Given the patient had a negative workup includes feel the patient likely strained his back and neck. I feel the patient can be discharged home.Patient is advised to follow up with primary doctor in 2-3 days and return the emergency room for any worsening symptoms and as needed. Other X-Ray Diagnostic Results Other X-Ray Diagnostic Results : X-Ray ordered: pelvis x-ray # of Views/Limited Vs Complete: 1 View Indication: Pain Interpretation: no dislocation, no soft tissue swelling, no fractures Impression: No acute disease Electronically Signed by: Electronically signed by Pierre Francis MD Last Vital Signs Date Time Temp Pulse Resp B/P (MAP) Pulse Ox O2 Delivery O2 Flow Rate FiO2 05/23/18 01:44 98.4 84 16 140/90 96 Room Air Status: improved Disposition: HOME, SELF-CARE Condition: Stable Pierre Francis MD May 23, 2018 02:19
[2018-05-23 03:00] VITALS: BP 131/89
--- NOTE | 2018-05-23 04:00 | NUR ---
ED Nurse Note: pt resting on gurney quietly, medicated for pain, meds effective, pt sleeping, arouses easily and states he feels better, pt assisted with re-positioning, remains on cardiac monitoring, will continue to closely montior and prepare for disposition.
--- NOTE | 2018-05-23 04:37 | Diagnostic Imaging Report ---
EXAM: CT Cervical Spine Without Intravenous Contrast CLINICAL HISTORY: TRAUMA TECHNIQUE: Axial computed tomography images of the cervical spine without intravenous contrast. CTDI is 17.3 mGy and DLP is 371.86 mGy-cm. One or more of the following dose reduction techniques were used: automated exposure control, adjustment of the mA and/or kV according to patient size, use of iterative reconstruction technique. COMPARISON: No relevant prior studies available. FINDINGS: No acute fracture. Findings compatible with os odontoideum. [place] well-corticated as is the hypoplastic dens. Hypertrophy of anterior C1. Corticated, chronic posterior C1 ring defect. IMPRESSION: No acute fracture. Findings compatible with os odontoideum. If there is concern for instability, flexion and extension views could be obtained, as indicated.
--- NOTE | 2018-05-23 04:43 | Diagnostic Imaging Report ---
EXAM: XR Pelvis, 1 View CLINICAL HISTORY: TRAUMA TECHNIQUE: Frontal view of the pelvis. COMPARISON: No relevant prior studies available. IMPRESSION: No acute fracture or dislocation.
[2018-05-23 05:00] VITALS: BP 124/81
--- NOTE | 2018-05-23 05:06 | Diagnostic Imaging Report ---
EXAM: CT Head Without Intravenous Contrast CLINICAL HISTORY: TRAUMA TECHNIQUE: Axial computed tomography images of the head/brain without intravenous contrast. CTDI is 70.38 mGy and DLP is 1435.68 mGy-cm. One or more of the following dose reduction techniques were used: automated exposure control, adjustment of the mA and/or kV according to patient size, use of iterative reconstruction technique. COMPARISON: 06/22/17. No prior report. FINDINGS: Brain: No hemorrhage. No mass effect. Taylor white junction preserved. Ventricles: Age appropriate Bones/joints: No acute fracture. Sinuses: Trace sinus opacity with improved aeration compared to previous. Mastoid air cells: Well aerated as visualized. IMPRESSION: No acute intracranial findings
--- NOTE | 2018-05-23 05:10 | Diagnostic Imaging Report ---
EXAM: CT Lumbar Spine Without Intravenous Contrast CLINICAL HISTORY: TRAUMA TECHNIQUE: Axial computed tomography images of the lumbar spine without intravenous contrast. CTDI is 31.11 mGy and DLP is 1211.92 mGy-cm. One or more of the following dose reduction techniques were used: automated exposure control, adjustment of the mA and/or kV according to patient size, use of iterative reconstruction technique. COMPARISON: No relevant prior studies available. FINDINGS: No acute fracture or subluxation. There are endplate irregularities most prominent at superior endplate of L2 and L3 which appear chronic. May be degenerative/Schmorl's nodes. IMPRESSION: No acute fracture. Degenerative changes.
--- NOTE | 2018-05-23 05:13 | NUR ---
Sophy herrera contacted, spoke with Pau - aware of patients return back home by ambulance.
[2018-05-23 06:35] VITALS: BP 133/73
--- NOTE | 2018-05-23 06:50 | NUR ---
ED Nurse Note: pt being d/c back to care facility, [facility] rig[facility][id number] arrived for transport, report given to straddle truck driver diego along with d/c instructions, pt is awake, alert and oriented x 4, has all belongiongs including own wheelchair, pt denies cp or any pain, no sob or labored breathing ntoed, armband removed, nad noted during pt d/c back to snf.
[2018-05-23 06:56] VITALS: BP 133/73
== END 2018-05-23 06:50 | disposition home or self-care (01) ==
LOC: EDBD 02:03 → EMR 03:00
DX: S39.012A Strain of muscle, fascia and tendon of lower back, initial encounter (principal); W05.0XXA Fall from non-moving wheelchair, initial encounter; Y92.129 Unspecified place in nursing home as the place of occurrence of the external cause; R51 Headache; M54.2 Cervicalgia; I10 Essential (primary) hypertension; J44.9 Chronic obstructive pulmonary disease, unspecified; K21.9 Gastro-esophageal reflux disease without esophagitis; G20 Parkinson's disease; G62.9 Polyneuropathy, unspecified
CPT/HCPCS: 70450; 72125; 72131; 72170; 96372; 99284; J2270

== ENCOUNTER 2018-06-22 18:16 | Inpatient (IN) | payer MEDICARE, OTHER ==
[~2018-06-22] VITALS: Ht 188 cm; Wt 79.4 kg
[2018-06-22 18:19] VITALS: BP 120/75
--- NOTE | 2018-06-22 18:20 | NUR ---
ED Nurse Note: FROM [facility], C/O INCREASE NECK PAIN. POOR APPETITE AND DIZZINESS- PER EMS, ALL C/O ARE CHRONIC ISSUES. patient is from a SNF. PATIENT STATES THAT HIS PAIN IS CHRONIC, PATIENT IS ALERT AND ORIENTED X4.
[2018-06-22] MEDS ORDERED: FOLIC ACID0.4 MG ORAL (18:23)
[2018-06-22] MEDS ORDERED: PROSCAR5 MG ORAL (18:23)
[2018-06-22] MEDS ORDERED: LIPITOR80 MG ORAL (18:23)
[2018-06-22] MEDS ORDERED: VITAMIN B-12100 MCG ORAL (18:23)
[2018-06-22] MEDS ORDERED: COLACE100 MG ORAL (18:23)
[2018-06-22] MEDS ORDERED: SENNA8.6 M2 PO ×2 (18:23→19:38)
[2018-06-22] MEDS ORDERED: MEGESTROL400 MG/11 PO (19:25)
[2018-06-22] MEDS ORDERED: ACETAMINOPHEN-1 EAC1 ORAL (19:25)
[2018-06-22] MEDS ORDERED: DULERA 200 MCG/13 GM IH (19:25)
[2018-06-22] MEDS ORDERED: DOCUSATE SODIU100 MG ORAL (19:25)
[2018-06-22] MEDS ORDERED: SINEMET 25-1001 EAC1 ORAL (19:30)
[2018-06-22] MEDS ORDERED: BENZTROPINE ME0.5 MG PO (19:30)
[2018-06-22] MEDS ORDERED: FOLIC ACID1 MG ORAL (19:36)
[2018-06-22] MEDS ORDERED: VITAMIN D1000 UNI1 ORAL (19:36)
[2018-06-22] MEDS ORDERED: VITAMIN B-121000 MCG PO (19:36)
[2018-06-22] MEDS ORDERED: LEVETIRACETAM250 MG PO (19:36)
[2018-06-22] MEDS ORDERED: MELATONIN 3 MG1 EAC1 PO (19:43)
[2018-06-22] MEDS ORDERED: RISPERDAL1 MG PO (19:43)
[2018-06-22] MEDS ORDERED: MIRTAZAPINE15 M3 ORAL (19:43)
[2018-06-22] MEDS ORDERED: BUSPIRONE HCL15 MG ORAL (19:43)
[2018-06-22] MEDS ORDERED: MAPAP160 MG/51 PO (19:48)
[2018-06-22] MEDS ORDERED: MAPAP480 MG/15 PO (19:48)
[2018-06-22] MEDS ORDERED: CLOBETASOL PROP15 G1 TP (19:48)
[2018-06-22] MEDS ORDERED: KLONOPIN1 MG ORAL (19:48)
[2018-06-22] MEDS ORDERED: IBUPROFEN600 MG ORAL (19:48)
[2018-06-22] MEDS ORDERED: ALBUTEROL2.5 MG/3 M INH (19:48)
[2018-06-22 20:22] LABS: BASOPHILS % (AUTO) 0.6 % (0.0-2.0); EOSINOPHILS % (AUTO) 0.8 % (0.0-3.0); HEMATOCRIT 42.8 % (42.0-52.0); LYMPHOCYTES % (AUTO) 18.1 % (20.0-45.0); MEAN CORPUSCULAR VOLUME 100 FL (80-99); MONOCYTES % (AUTO) 6.6 % (1.0-10.0); NEUTROPHILS % (AUTO) 73.9 % (45.0-75.0); PLATELET COUNT 267 K/UL (150-450); RED BLOOD COUNT 4.29 M/UL (4.70-6.10); RED CELL DISTRIBUTION WIDTH 11.5 % (11.6-14.8); WHITE BLOOD COUNT 15.4 K/UL (4.8-10.8)
[2018-06-22 20:26] LABS: ANION GAP 8 mmol/L (5-15); BLOOD UREA NITROGEN 21 mg/dL (7-18); CALCIUM 8.9 MG/DL (8.5-10.1); CARBON DIOXIDE 28 MMOL/L (21-32); CHLORIDE 106 MMOL/L (98-107); CREATININE 1.1 MG/DL (0.55-1.30); POTASSIUM 4.4 MMOL/L (3.5-5.1); SODIUM 141 MMOL/L (136-145)
[2018-06-22 20:28] VITALS: BP 125/73
[2018-06-22 20:31] LABS: ALANINE AMINOTRANSFERASE 16 U/L (12-78); ALBUMIN/GLOBULIN RATIO 1.3 (1.0-2.7); ALKALINE PHOSPHATASE 38 U/L (46-116); ASPARTATE AMINO TRANSFERASE 14 U/L (15-37); BILIRUBIN,TOTAL 0.3 MG/DL (0.2-1.0)
[2018-06-22 21:13] VITALS: BP 121/74
[2018-06-22 21:19] LABS: APPEARANCE,URINE CLEAR; BILIRUBIN, URINE NEGATIVE (NEGATIVE); COLOR,URINE PALE YELLOW; GLUCOSE, URINE (UA) NEGATIVE (NEGATIVE); KETONES,URINE NEGATIVE (NEGATIVE); LEUKOCYTE ESTERASE ,URINE 1+ (NEGATIVE); NITRITE,URINE NEGATIVE (NEGATIVE); PH,URINE 7 (4.5-8.0); PROTEIN,URINE NEGATIVE (NEGATIVE); UROBILINOGEN,URINE 1 MG/DL (0.0-1.0)
--- NOTE | 2018-06-22 21:20 | NUR ---
ED Nurse Note: [facility]. pt status, condition and vital signs are reported to ERMD and receving RN prior to transfer. pt vital signs, status and condtion are stable and pt is stable for transfer at this time.
[2018-06-22 21:30] VITALS: BP 126/81
--- NOTE | 2018-06-22 21:30 | NUR ---
NURSE NOTES: Patient came from ER via [facility], report from Devin SPENCE. No s/s of distress noted. A&OX4. IV site patent and intact. Skin intact. Belongings are checked. Patient's wheel chair at bedside. Bed in lowest position. Call light within reach. Will continue to monitor.
[2018-06-22] MEDS ORDERED: Zolpidem 5mg tab ORAL PRN (23:00)
[2018-06-22] MEDS ORDERED: Mylanta II UD 30ml ORAL PRN (23:00)
[2018-06-22] MEDS ORDERED: Miralax 17gm pkt ORAL PRN (23:00)
[2018-06-23] VITALS: BP 118/70
[2018-06-23 04:00] VITALS: BP 112/73
[2018-06-23 06:55] LABS: BASOPHILS % (AUTO) 0.7 % (0.0-2.0); EOSINOPHILS % (AUTO) 0.9 % (0.0-3.0); HEMATOCRIT 43.3 % (42.0-52.0); HEMOGLOBIN 15.5 G/DL (14.2-18.0); LYMPHOCYTES % (AUTO) 18.9 % (20.0-45.0); MEAN CORPUSCULAR VOLUME 100 FL (80-99); MONOCYTES % (AUTO) 6.6 % (1.0-10.0); PLATELET COUNT 251 K/UL (150-450); RED BLOOD COUNT 4.34 M/UL (4.70-6.10); RED CELL DISTRIBUTION WIDTH 11.7 % (11.6-14.8); WHITE BLOOD COUNT 13.8 K/UL (4.8-10.8)
[2018-06-23 07:12] LABS: ALANINE AMINOTRANSFERASE 26 U/L (12-78); ALBUMIN 3.8 G/DL (3.4-5.0); ALBUMIN/GLOBULIN RATIO 1.3 (1.0-2.7); ALKALINE PHOSPHATASE 38 U/L (46-116); ANION GAP 9 mmol/L (5-15); ASPARTATE AMINO TRANSFERASE 12 U/L (15-37); BILIRUBIN,TOTAL 0.5 MG/DL (0.2-1.0); BLOOD UREA NITROGEN 22 mg/dL (7-18); CALCIUM 8.7 MG/DL (8.5-10.1); CARBON DIOXIDE 25 MMOL/L (21-32); CHLORIDE 106 MMOL/L (98-107); CHOLESTEROL 113 MG/DL (< 200); CREATININE 1.1 MG/DL (0.55-1.30); HDL CHOLESTEROL 24 MG/DL (40-60); POTASSIUM 4.3 MMOL/L (3.5-5.1); SODIUM 140 MMOL/L (136-145); TRIGLYCERIDES 102 MG/DL (30-150)
--- NOTE | 2018-06-23 07:30 | NUR ---
HAND-OFF: Report given to Mary SPENCE.
--- NOTE | 2018-06-23 07:59 | NUR ---
NURSE NOTES: Received report from Katie SPENCE. On rounds patient is awake alert and oriented x4, no s/s acute distress noted, on 2L NC. Patient has soft cervical collar in place. SCD's on. Patient reporting pain in legs and neck, will medicate per order. Fall and seizure precautions maintained. Side rails upx3, bed low and locked, call light in reach. Will continue to monitor.
[2018-06-23 08:00] VITALS: BP_SYST 115; BP_SYST 120; BP_DIAS 72; BP_DIAS 89
[2018-06-23] MEDS: BusPIRone 5mg Tab ORAL SCH ×2 (08:45→18:07)
[2018-06-23] MEDS: Levodopa/Carbidopa 25/100 tab ORAL SCH ×3 (08:46→18:07)
[2018-06-23] MEDS: Morphine Sulfate 2mg/ml Inj IVP PRN ×2 (10:18→19:07)
--- NOTE | 2018-06-23 10:24 | Diagnostic Imaging Report ---
Indication: Headache Technique: Contiguous 5 mm thick transaxial imaging of the head obtained in a Siemens Sensation [address] scanner. Soft tissue and bone windows generated. Automatic Exposure Control was utilized. Total Dose length Product (DLP): 1530.[address] Dose Index Volume (CTDIvol): 70.38 mGy Comparison: 05/23/2018 Findings: The size and configuration of the cortical sulci, basal cisterns, and ventricles are within normal limits for age. There is no mass effect, midline shift, or edema identified. There is no evidence of acute hemorrhage or abnormal intra-axial or extra-axial fluid collections. The bones and soft tissues are unremarkable. Mild sinus opacification noted. Impression: No mass effect, edema or acute bleed. Mild sinusitis No interval change The CT scanner at [facility] is accredited by the [employer] and the scans are performed using dose optimization techniques as appropriate to a performed exam including Automatic Exposure control.
[2018-06-23 12:00] VITALS: BP 119/70
--- NOTE | 2018-06-23 12:40 | Diagnostic Imaging Report ---
Indication: Dyspnea Comparison: 11/13/2017 A single view chest radiograph was obtained. Findings: Bronchovascular markings are more prominent but lung volumes are lower due to poor inspiration. Heart size is normal. Bones are unremarkable. IMPRESSION: No acute disease. Some limitations due to expiratory lung volumes
--- NOTE | 2018-06-23 13:18 | Consultation ---
History of Present Illness General Date patient seen: Jun 23, 2018 Chief Complaint: General Complaint Reason for Consultation: Leukocytosis Present Illness HPI Mr. Howell is a 43 yo male with PMHx of advanced parkinsonism and is wheelchair- bound , Anxiety, COPD, Depression, Seizures and shizophrenia, who fell out of his chair on transferring last month and is now presenting to the ED with increased neck pain poor appetite and dizziness. In the ED he was afebrile with WBCs of 15. UA , CXR, and CT head showed no acute disease. Only mild sinusitis. No antibiotics were given and his leukocytosis is improved today. The patient reports that he fell while transferring himself out of his wheel chair. He reports no fever, chills, SOB, CP, Dysuria, N/V/D or abdominal pain. ID was consulted for leukocytosis PMHx/PSHx Advanced parkinsonism - wheelchair-bound Anxiety COPD Depression Seizures Shizophrenia SocHx No E/T/D FamHx Not contributory Allergies: Coded Allergies: CHLORPROMAZINE (Verified Allergy, Unknown, 11/13/17) CHLORPROPAMIDE (Unverified Allergy, Unknown, 01/28/18) DIVALPROEX SODIUM (Verified Allergy, Unknown, 04/17/17) FISH CONTAINING PRODUCTS (Verified Allergy, Unknown, 06/20/17) FISH OIL (Unverified Allergy, Unknown, 01/28/18) Medication History Scheduled Atorvastatin (Lipitor), 40 MG ORAL BEDTIME, (Reported) Benztropine Mesylate* (Cogentin*), 1 MG PO BID, (Reported) Buspirone Hcl* (Buspirone Hcl*), 15 MG ORAL TWICE A DAY, (Reported) Carbidopa/Levodopa 25-100 Mg* (Sinemet 25-100 Mg Tablet*), 1 TAB ORAL THREE TIMES A DAY, (Reported) Cholecalciferol (Vitamin D3)* (Vitamin D*), 2,000 UNITS ORAL TWICE A DAY, ( Reported) Clobetasol Propionate (Clobetasol Propionate), 15 GM TP BID, (Reported) Clonazepam* (Klonopin*), 1 MG ORAL BID, (Reported) Cyanocobalamin (Vitamin B-12) (Vitamin B-12), 1,000 MCG PO DAILY, (Reported) Docusate Sodium* (Docusate Sodium*), 100 MG ORAL TWICE A DAY, (Reported) Finasteride* (Proscar*), 5 MG ORAL DAILY, (Reported) Fluoxetine Hcl* (Prozac*), 20 MG ORAL DAILY, (Reported) Folic Acid* (Folic Acid*), 1 MG ORAL DAILY, (Reported) Gabapentin* (Gabapentin*), 600 MG ORAL THREE TIMES A DAY, (Reported) Levetiracetam (Levetiracetam), 250 MG PO TID, (Reported) Megestrol Acetate (Megestrol Acetate), 10 ML PO BID, (Reported) Mirtazapine* (Mirtazapine*), 15 MG ORAL BEDTIME, (Reported) Mometasone/Formoterol (Dulera 200 Mcg/5 Mcg Inhaler), 2 PUFFS IH BID, (Reported) Multivitamin (Multi Vitamin Daily), 1 TAB ORAL DAILY, (Reported) Nicotine 14MG Patch* (Nicoderm Cq 14MG*), 1 EACH TD DAILY, (Reported) Pantoprazole* (Pantoprazole*), 40 MG ORAL DAILY, (Reported) Risperidone* (Risperdal*), 1 MG PO BID, (Reported) Sennosides (Senna), 17.2 MG PO QHS, (Reported) Tamsulosin Hcl (Tamsulosin Hcl*), 0.4 MG ORAL BEDTIME, (Reported) Scheduled PRN Acetaminophen (Mapap), 480 MG PO Q6HR PRN for muscle weakness, (Reported) Acetaminophen* (Acetaminophen 325MG Tablet*), 650 MG ORAL Q4H PRN for Fever/ Headache/Mild Pain, (Reported) Albuterol Sulfate (Ventolin Hfa), 2 PUFFS INH EVERY 6 HOURS PRN for Shortness of Breath, (Reported) Albuterol Sulfate* (Albuterol Sulfate Hhn*), 3 ML INH Q6H PRN for Shortness of Breath, (Reported) Ibuprofen* (Motrin*), 600 MG ORAL Q4HR PRN for For Pain, (Reported) Melatonin/Pyridoxine HCl (B6) (Melatonin 3 mg Tablet), 1 EACH PO QHS PRN for insomnia, (Reported) Polyethylene Glycol 3350* (Polyethylene Glycol 3350*), 17 GM ORAL BEDTIME PRN for Constipation, (Reported) Discontinued Medications Al Hydroxide/mg Hydroxide (Mag-Al Plus Suspension), 30 ML PO Q6HR PRN for prn, ( Reported) Discontinued Reason: MD discontinued med Aspirin* (Aspirin*), 81 MG ORAL DAILY, (Reported) Discontinued Reason: MD discontinued med Benztropine Mesylate* (Benztropine Mesylate*), 2 MG PO BID, (Reported) Discontinued Reason: Medication dose changed Bisacodyl* (Dulcolax*), 10 MG RC NEEDED, (Reported) Discontinued Reason: MD discontinued med Carbamazepine (Tegretol*), 200 MG PO TID, (Reported) Discontinued Reason: MD discontinued med Dextran 70/Hypromellose (Artificial Tears Eye Drops*), 2 DROP BOTH EYES, ( Reported) Discontinued Reason: MD discontinued med Diphenhydramine HCl (Benadryl), 50 MG PO QHS PRN for Itching, (Reported) Discontinued Reason: Medication dose changed Docusate Sodium* (Colace*), 100 MG ORAL DAILY, (Reported) Discontinued Reason: Medication dose changed Fluticasone/Salmeterol (Advair Hfa 45-21 Mcg Inhaler), 2 PUFFS INH EVERY 12 HOURS, (Reported) Discontinued Reason: MD discontinued med Folic Acid/Vitamin B Comp W-C (Lia-Ramona Tablet), 1 MG PO, (Reported) Discontinued Reason: MD discontinued med Hydrocodone Bit/Acetaminophen 5-325* ([place] 5-325*), 1 TAB ORAL Q6H PRN for For Pain, (Reported) Discontinued Reason: MD discontinued med Ibuprofen* (Motrin*), 600 MG ORAL Q8H PRN for For Pain Discontinued Reason: MD discontinued med Lactulose (Lactulose*), 30 ML ORAL DAILY, (Reported) Discontinued Reason: MD discontinued med Lamotrigine (Lamictal), 50 MG ORAL TWICE A DAY, (Reported) Discontinued Reason: MD discontinued med Levetiracetam (Levetiracetam), 250 MG PO TID, (Reported) Discontinued Reason: MD discontinued med Lorazepam* (Ativan*), 0.5 MG ORAL Q6HR PRN for For Anxiety, (Reported) Discontinued Reason: MD discontinued med Magnesium Hydroxide* (Milk Of Magnesia*), 30 ML ORAL NEEDED, (Reported) Discontinued Reason: MD discontinued med Mometasone Furoate (Nasonex), 2 SPRAYS NASAL BID, (Reported) Discontinued Reason: Medication dose changed Morphine Sulfate (Morphine Sulfate), 15 MG PO EVERY 12 HOURS, (Reported) Discontinued Reason: MD discontinued med Nitroglycerin (Nitroglycerin), 0.4 MG SL PRN, (Reported) Discontinued Reason: MD discontinued med Olopatadine (Patanol), 1 DROP OD DAILY, (Reported) Discontinued Reason: MD discontinued med Oxcarbazepine* (Trileptal*), 300 MG PO BID, (Reported) Discontinued Reason: MD discontinued med Quetiapine Fumarate* (Seroquel*), 50 MG ORAL TWICE A DAY, (Reported) Discontinued Reason: MD discontinued med Sennosides (Senna), 8.6 MG PO, (Reported) Discontinued Reason: MD discontinued med Temazepam (Temazepam*), 30 MG ORAL NEEDED, (Reported) Discontinued Reason: MD discontinued med Trazodone* (Trazodone*), 50 MG ORAL BEDTIME, (Reported) Discontinued Reason: MD discontinued med Unable to Obtain Medications (Unable To Obtain Meds), (Reported) Discontinued Reason: Therapy completed Vitamin B Cmplx/Vit C/Folic AC (Nephro-Ramona Tablet), 1 TAB ORAL DAILY, (Reported ) Discontinued Reason: MD discontinued med Vitamin B Cmplx/Vit C/Folic AC (Nephro-Ramona Tablet), 1 TAB ORAL DAILY, (Reported ) Discontinued Reason: MD discontinued med Patient History Healthcare decision maker responsible green party Resuscitation status Do Not Resuscitate Advanced Directive on File Yes Review of Systems ROS Narrative 12 point ROS negative except as note in the HPI. Physical Exam Last 24 Hour Vital Signs Date Time Temp Pulse Resp B/P (MAP) Pulse Ox O2 Delivery O2 Flow Rate FiO2 06/23/18 10:48 98.3 06/23/18 09:00 Nasal Cannula 2.0 06/23/18 08:00 98.3 67 20 115/72 (86) 96 06/23/18 04:00 98.4 64 19 112/73 (86) 95 06/23/18 00:00 98.0 69 20 118/70 (86) 97 06/22/18 23:00 Nasal Cannula 2.0 06/22/18 22:00 Nasal Cannula 2.0 06/22/18 21:30 99.0 66 19 126/81 (96) 98 06/22/18 21:21 97.7 69 18 121/74 99 Nasal Cannula 2.0 06/22/18 21:13 97.7 69 18 121/74 99 Room Air 06/22/18 20:28 97.7 68 18 125/73 99 Room Air 06/22/18 18:19 71 18 Room Air 06/22/18 18:19 97.7 71 18 120/75 94 Room Air 06/22/18 18:11 97.7 71 18 120/75 94 Room Air Intake and Output 06/22/18 06/23/18 19:00 07:00 Intake Total 0 ml Balance 0 ml Intake Oral 0 ml # Voids 2 Laboratory Tests Test 06/22/18 19:25 06/22/18 21:06 06/23/18 06:10 White Blood Count 15.4 K/UL (4.8-10.8) H 13.8 K/UL (4.8-10.8) H Red Blood Count 4.29 M/UL (4.70-6.10) L 4.34 M/UL (4.70-6.10) L Hemoglobin 15.0 G/DL (14.2-18.0) 15.5 G/DL (14.2-18.0) Hematocrit 42.8 % (42.0-52.0) 43.3 % (42.0-52.0) Mean Corpuscular Volume 100 FL (80-99) H 100 FL (80-99) H Mean Corpuscular Hemoglobin 35.1 PG (27.0-31.0) H 35.7 PG (27.0-31.0) H Mean Corpuscular Hemoglobin Concent 35.1 G/DL (32.0-36.0) 35.8 G/DL (32.0-36.0) Red Cell Distribution Width 11.5 % (11.6-14.8) L 11.7 % (11.6-14.8) Platelet Count 267 K/UL (150-450) 251 K/UL (150-450) Mean Platelet Volume 6.5 FL (6.5-10.1) 7.1 FL (6.5-10.1) Neutrophils (%) (Auto) 73.9 % (45.0-75.0) 73.0 % (45.0-75.0) Lymphocytes (%) (Auto) 18.1 % (20.0-45.0) L 18.9 % (20.0-45.0) L Monocytes (%) (Auto) 6.6 % (1.0-10.0) 6.6 % (1.0-10.0) Eosinophils (%) (Auto) 0.8 % (0.0-3.0) 0.9 % (0.0-3.0) Basophils (%) (Auto) 0.6 % (0.0-2.0) 0.7 % (0.0-2.0) Sodium Level 141 MMOL/L (136-145) 140 MMOL/L (136-145) Potassium Level 4.4 MMOL/L (3.5-5.1) 4.3 MMOL/L (3.5-5.1) Chloride Level 106 MMOL/L (98-107) 106 MMOL/L (98-107) Carbon Dioxide Level 28 MMOL/L (21-32) 25 MMOL/L (21-32) Anion Gap 8 mmol/L (5-15) 9 mmol/L (5-15) Blood Urea Nitrogen 21 mg/dL (7-18) H 22 mg/dL (7-18) H Creatinine 1.1 MG/DL (0.55-1.30) 1.1 MG/DL (0.55-1.30) Estimat Glomerular Filtration Rate > 60 mL/min (>60) > 60 mL/min (>60) Glucose Level 103 MG/DL (74-106) 94 MG/DL (74-106) Calcium Level 8.9 MG/DL (8.5-10.1) 8.7 MG/DL (8.5-10.1) Total Bilirubin 0.3 MG/DL (0.2-1.0) 0.5 MG/DL (0.2-1.0) Aspartate Amino Transf (AST/SGOT) 14 U/L (15-37) L 12 U/L (15-37) L Alanine Aminotransferase (ALT/SGPT) 16 U/L (12-78) 26 U/L (12-78) Alkaline Phosphatase 38 U/L (46-116) L 38 U/L (46-116) L Troponin I 0.000 ng/mL (0.000-0.056) Total Protein 7.0 G/DL (6.4-8.2) 6.8 G/DL (6.4-8.2) Albumin 4.0 G/DL (3.4-5.0) 3.8 G/DL (3.4-5.0) Globulin 3.0 g/dL 3.0 g/dL Albumin/Globulin Ratio 1.3 (1.0-2.7) 1.3 (1.0-2.7) Urine Color Pale yellow Urine Appearance Clear Urine pH 7 (4.5-8.0) Urine Specific [place] 1.005 (1.005-1.035) Urine Protein Negative (NEGATIVE) Urine Glucose (UA) Negative (NEGATIVE) Urine Ketones Negative (NEGATIVE) Urine Blood Negative (NEGATIVE) Urine Nitrite Negative (NEGATIVE) Urine Bilirubin Negative (NEGATIVE) Urine Urobilinogen 1 MG/DL (0.0-1.0) H Urine Leukocyte Esterase 1+ (NEGATIVE) H Urine RBC 0-2 /HPF (0 - 0) H Urine WBC 2-4 /HPF (0 - 0) Urine Squamous Epithelial Cells None /LPF (NONE/OCC) Urine Bacteria Few /HPF (NONE) Triglycerides Level 102 MG/DL (30-150) Cholesterol Level 113 MG/DL (< 200) LDL Cholesterol 73 mg/dL (<100) HDL Cholesterol 24 MG/DL (40-60) L Cholesterol/HDL Ratio 4.7 (3.3-4.4) H Thyroid Stimulating Hormone (TSH) 1.961 uiU/mL (0.358-3.740) Height (Feet): 6 Height (Inches): 2.00 Weight (Pounds): 175 Medications Current Medications Medications (Trade) Dose Ordered Sig/Sharon Route PRN Reason Start Time Stop Time Status Last Admin Dose Admin Acetaminophen (Tylenol) 650 mg Q4H PRN ORAL fever 06/22/18 23:00 07/22/18 22:59 Al Hydroxide/Mg Hydroxide (Mylanta II) 30 ml Q6H PRN ORAL dyspepsia 06/22/18 23:00 07/22/18 22:59 Atorvastatin Calcium (Lipitor) 40 mg BEDTIME ORAL 06/23/18 21:00 07/23/18 20:59 Buspirone HCl (Buspar) 15 mg TWICE A DAY ORAL 06/23/18 09:00 07/23/18 08:59 06/23/18 08:45 Carbidopa/Levodopa (Sinemet 25/100) 1 tab THREE TIMES A DAY ORAL 06/23/18 09:00 07/23/18 08:59 06/23/18 08:46 Clonazepam (KlonoPIN) 1 mg BID ORAL 06/23/18 09:00 06/30/18 08:59 06/23/18 08:46 Dextrose (Dextrose 50%) STAT PRN IV Hypoglycemia 06/22/18 23:00 07/22/18 22:59 Finasteride (Proscar) 5 mg DAILY ORAL 06/23/18 09:00 07/23/18 08:59 06/23/18 08:44 Gabapentin (Neurontin) 600 mg THREE TIMES A DAY ORAL 06/23/18 09:00 07/23/18 08:59 06/23/18 08:45 Levetiracetam (Keppra) 250 mg TID ORAL 06/23/18 09:00 07/23/18 08:59 06/23/18 08:45 Lorazepam (Ativan 2mg/ml 1ml) 0.5 mg Q4H PRN IV For Anxiety 06/22/18 23:00 06/29/18 22:59 Mirtazapine (Remeron) 15 mg BEDTIME ORAL 06/23/18 21:00 07/23/18 20:59 Morphine Sulfate (Morphine Sulfate) 1 mg EVERY 4 HOURS PRN IVP For Pain 06/22/18 23:00 06/29/18 22:59 06/23/18 10:18 Ondansetron HCl (Zofran) 4 mg Q6H PRN IVP Nausea & Vomiting 06/22/18 23:00 07/22/18 22:59 Polyethylene Glycol (Miralax) 17 gm HSPRN PRN ORAL Constipation 06/22/18 23:00 07/22/18 22:59 Risperidone (RisperDAL) 1 mg BID ORAL 06/23/18 09:00 07/23/18 08:59 06/23/18 08:46 Tamsulosin HCl (Flomax) 0.4 mg BEDTIME ORAL 06/23/18 21:00 07/23/18 20:59 Zolpidem Tartrate (Ambien) 5 mg HSPRN PRN ORAL Insomnia 06/22/18 23:00 06/29/18 22:59 Objective Narrative Gen: NAD, well appearing, alert HEENT: NCAT, MMM, EOMI, PERRL, No Oral lesion, no scleral icterus NECK: full range of motion, supple, no meningismus, No LAD, No JVD LUNGS: CTAB, No W/C, No Accessory muscle use CARDS: RRR, S1, S2, No M/R/G, ABD: Soft, NT, ND, No R/G, + BS, No HSM, No Masses : Deferred Ext: C/C/E, Pulses 2+ B/L (DP, Rad): NEURO: A/O x 4, Strength and Sensation Grossly decreased PSYCH: Mood/affect normal SKIN: Warm/dry, No rashes Assessment/Plan Assessment/Plan 43 yo male with PMHx of advanced parkinsonism and is wheelchair-bound , Anxiety , COPD, Depression, Seizures and shizophrenia, who fell out of his chair on transferring last month and is now presenting to the ED with increased neck pain poor appetite and dizziness. Leukocytosis Unclear source - Pain, Viral, No sign of bacterial infection No Fever f/u blood and urine Cx Advanced parkinsonism and is wheelchair-bound Anxiety COPD Depression Seizures Shizophrenia PLAN - Monitor off abx - f/u cultures - Monitor CBC and Temps Thank you for this consult. We will continue to follow the patient during this hospitalization. Axel Alonso MD Jun 23, 2018 13:18
--- NOTE | 2018-06-23 13:43 | Consultation ---
History of Present Illness General Date patient seen: Jun 23, 2018 Chief Complaint: General Complaint Reason for Consultation: Leukocytosis Present Illness HPI 43-year-old male with psychiatric disorder, COPD, depression, [facility] resident brought in by EMS after reportedly being weak with episodes of fall and poor appetite. Patient was noted to have leukocytosis and admitted for possible sepsis. Pt is c/o of weakness and not being able to eat much. Allergies: Coded Allergies: CHLORPROMAZINE (Verified Allergy, Unknown, 11/13/17) CHLORPROPAMIDE (Unverified Allergy, Unknown, 01/28/18) DIVALPROEX SODIUM (Verified Allergy, Unknown, 04/17/17) FISH CONTAINING PRODUCTS (Verified Allergy, Unknown, 06/20/17) FISH OIL (Unverified Allergy, Unknown, 01/28/18) Medication History Scheduled Atorvastatin (Lipitor), 40 MG ORAL BEDTIME, (Reported) Benztropine Mesylate* (Cogentin*), 1 MG PO BID, (Reported) Buspirone Hcl* (Buspirone Hcl*), 15 MG ORAL TWICE A DAY, (Reported) Carbidopa/Levodopa 25-100 Mg* (Sinemet 25-100 Mg Tablet*), 1 TAB ORAL THREE TIMES A DAY, (Reported) Cholecalciferol (Vitamin D3)* (Vitamin D*), 2,000 UNITS ORAL TWICE A DAY, ( Reported) Clobetasol Propionate (Clobetasol Propionate), 15 GM TP BID, (Reported) Clonazepam* (Klonopin*), 1 MG ORAL BID, (Reported) Cyanocobalamin (Vitamin B-12) (Vitamin B-12), 1,000 MCG PO DAILY, (Reported) Docusate Sodium* (Docusate Sodium*), 100 MG ORAL TWICE A DAY, (Reported) Finasteride* (Proscar*), 5 MG ORAL DAILY, (Reported) Fluoxetine Hcl* (Prozac*), 20 MG ORAL DAILY, (Reported) Folic Acid* (Folic Acid*), 1 MG ORAL DAILY, (Reported) Gabapentin* (Gabapentin*), 600 MG ORAL THREE TIMES A DAY, (Reported) Levetiracetam (Levetiracetam), 250 MG PO TID, (Reported) Megestrol Acetate (Megestrol Acetate), 10 ML PO BID, (Reported) Mirtazapine* (Mirtazapine*), 15 MG ORAL BEDTIME, (Reported) Mometasone/Formoterol (Dulera 200 Mcg/5 Mcg Inhaler), 2 PUFFS IH BID, (Reported) Multivitamin (Multi Vitamin Daily), 1 TAB ORAL DAILY, (Reported) Nicotine 14MG Patch* (Nicoderm Cq 14MG*), 1 EACH TD DAILY, (Reported) Pantoprazole* (Pantoprazole*), 40 MG ORAL DAILY, (Reported) Risperidone* (Risperdal*), 1 MG PO BID, (Reported) Sennosides (Senna), 17.2 MG PO QHS, (Reported) Tamsulosin Hcl (Tamsulosin Hcl*), 0.4 MG ORAL BEDTIME, (Reported) Scheduled PRN Acetaminophen (Mapap), 480 MG PO Q6HR PRN for muscle weakness, (Reported) Acetaminophen* (Acetaminophen 325MG Tablet*), 650 MG ORAL Q4H PRN for Fever/ Headache/Mild Pain, (Reported) Albuterol Sulfate (Ventolin Hfa), 2 PUFFS INH EVERY 6 HOURS PRN for Shortness of Breath, (Reported) Albuterol Sulfate* (Albuterol Sulfate Hhn*), 3 ML INH Q6H PRN for Shortness of Breath, (Reported) Ibuprofen* (Motrin*), 600 MG ORAL Q4HR PRN for For Pain, (Reported) Melatonin/Pyridoxine HCl (B6) (Melatonin 3 mg Tablet), 1 EACH PO QHS PRN for insomnia, (Reported) Polyethylene Glycol 3350* (Polyethylene Glycol 3350*), 17 GM ORAL BEDTIME PRN for Constipation, (Reported) Discontinued Medications Al Hydroxide/mg Hydroxide (Mag-Al Plus Suspension), 30 ML PO Q6HR PRN for prn, ( Reported) Discontinued Reason: MD discontinued med Aspirin* (Aspirin*), 81 MG ORAL DAILY, (Reported) Discontinued Reason: MD discontinued med Benztropine Mesylate* (Benztropine Mesylate*), 2 MG PO BID, (Reported) Discontinued Reason: Medication dose changed Bisacodyl* (Dulcolax*), 10 MG RC NEEDED, (Reported) Discontinued Reason: MD discontinued med Carbamazepine (Tegretol*), 200 MG PO TID, (Reported) Discontinued Reason: MD discontinued med Dextran 70/Hypromellose (Artificial Tears Eye Drops*), 2 DROP BOTH EYES, ( Reported) Discontinued Reason: MD discontinued med Diphenhydramine HCl (Benadryl), 50 MG PO QHS PRN for Itching, (Reported) Discontinued Reason: Medication dose changed Docusate Sodium* (Colace*), 100 MG ORAL DAILY, (Reported) Discontinued Reason: Medication dose changed Fluticasone/Salmeterol (Advair Hfa 45-21 Mcg Inhaler), 2 PUFFS INH EVERY 12 HOURS, (Reported) Discontinued Reason: MD discontinued med Folic Acid/Vitamin B Comp W-C (Lia-Ramona Tablet), 1 MG PO, (Reported) Discontinued Reason: MD discontinued med Hydrocodone Bit/Acetaminophen 5-325* ([place] 5-325*), 1 TAB ORAL Q6H PRN for For Pain, (Reported) Discontinued Reason: MD discontinued med Ibuprofen* (Motrin*), 600 MG ORAL Q8H PRN for For Pain Discontinued Reason: MD discontinued med Lactulose (Lactulose*), 30 ML ORAL DAILY, (Reported) Discontinued Reason: MD discontinued med Lamotrigine (Lamictal), 50 MG ORAL TWICE A DAY, (Reported) Discontinued Reason: MD discontinued med Levetiracetam (Levetiracetam), 250 MG PO TID, (Reported) Discontinued Reason: MD discontinued med Lorazepam* (Ativan*), 0.5 MG ORAL Q6HR PRN for For Anxiety, (Reported) Discontinued Reason: MD discontinued med Magnesium Hydroxide* (Milk Of Magnesia*), 30 ML ORAL NEEDED, (Reported) Discontinued Reason: MD discontinued med Mometasone Furoate (Nasonex), 2 SPRAYS NASAL BID, (Reported) Discontinued Reason: Medication dose changed Morphine Sulfate (Morphine Sulfate), 15 MG PO EVERY 12 HOURS, (Reported) Discontinued Reason: MD discontinued med Nitroglycerin (Nitroglycerin), 0.4 MG SL PRN, (Reported) Discontinued Reason: MD discontinued med Olopatadine (Patanol), 1 DROP OD DAILY, (Reported) Discontinued Reason: MD discontinued med Oxcarbazepine* (Trileptal*), 300 MG PO BID, (Reported) Discontinued Reason: MD discontinued med Quetiapine Fumarate* (Seroquel*), 50 MG ORAL TWICE A DAY, (Reported) Discontinued Reason: MD discontinued med Sennosides (Senna), 8.6 MG PO, (Reported) Discontinued Reason: MD discontinued med Temazepam (Temazepam*), 30 MG ORAL NEEDED, (Reported) Discontinued Reason: MD discontinued med Trazodone* (Trazodone*), 50 MG ORAL BEDTIME, (Reported) Discontinued Reason: MD discontinued med Unable to Obtain Medications (Unable To Obtain Meds), (Reported) Discontinued Reason: Therapy completed Vitamin B Cmplx/Vit C/Folic AC (Nephro-Ramona Tablet), 1 TAB ORAL DAILY, (Reported ) Discontinued Reason: MD discontinued med Vitamin B Cmplx/Vit C/Folic AC (Nephro-Ramona Tablet), 1 TAB ORAL DAILY, (Reported ) Discontinued Reason: MD discontinued med Patient History Healthcare decision maker responsible green party Resuscitation status Do Not Resuscitate Advanced Directive on File Yes Past Medical/Surgical History Past Medical/Surgical History: (1) COPD (chronic obstructive pulmonary disease) (2) ETOH abuse (3) Priapism (4) HTN (hypertension) (5) Seizure disorder (6) Psychiatric disorder Review of Systems Constitutional: Reports: no symptoms Eye: Reports: no symptoms ENT: Reports: no symptoms Cardiovascular: Reports: no symptoms Physical Exam General Appearance: WD/WN Lines, tubes and drains: peripheral HEENT: normocephalic, atraumatic Neck: non-tender, normal alignment Respiratory/Chest: chest wall non-tender, lungs clear Cardiovascular/Chest: normal peripheral pulses, normal rate Abdomen: normal bowel sounds, non tender Genitourinary/Rectal: normal genital exam, normal rectal exam Extremities: normal range of motion Skin Exam: normal pigmentation Last 24 Hour Vital Signs Date Time Temp Pulse Resp B/P (MAP) Pulse Ox O2 Delivery O2 Flow Rate FiO2 06/23/18 12:00 97.9 69 20 119/70 (86) 97 06/23/18 10:48 98.3 06/23/18 09:00 Nasal Cannula 2.0 06/23/18 08:00 98.3 67 20 115/72 (86) 96 06/23/18 04:00 98.4 64 19 112/73 (86) 95 06/23/18 00:00 98.0 69 20 118/70 (86) 97 06/22/18 23:00 Nasal Cannula 2.0 06/22/18 22:00 Nasal Cannula 2.0 06/22/18 21:30 99.0 66 19 126/81 (96) 98 06/22/18 21:21 97.7 69 18 121/74 99 Nasal Cannula 2.0 06/22/18 21:13 97.7 69 18 121/74 99 Room Air 06/22/18 20:28 97.7 68 18 125/73 99 Room Air 06/22/18 18:19 71 18 Room Air 06/22/18 18:19 97.7 71 18 120/75 94 Room Air 06/22/18 18:11 97.7 71 18 120/75 94 Room Air Intake and Output 06/22/18 06/23/18 19:00 07:00 Intake Total 0 ml Balance 0 ml Intake Oral 0 ml # Voids 2 Laboratory Tests Test 06/22/18 19:25 06/22/18 21:06 06/23/18 06:10 White Blood Count 15.4 K/UL (4.8-10.8) H 13.8 K/UL (4.8-10.8) H Red Blood Count 4.29 M/UL (4.70-6.10) L 4.34 M/UL (4.70-6.10) L Hemoglobin 15.0 G/DL (14.2-18.0) 15.5 G/DL (14.2-18.0) Hematocrit 42.8 % (42.0-52.0) 43.3 % (42.0-52.0) Mean Corpuscular Volume 100 FL (80-99) H 100 FL (80-99) H Mean Corpuscular Hemoglobin 35.1 PG (27.0-31.0) H 35.7 PG (27.0-31.0) H Mean Corpuscular Hemoglobin Concent 35.1 G/DL (32.0-36.0) 35.8 G/DL (32.0-36.0) Red Cell Distribution Width 11.5 % (11.6-14.8) L 11.7 % (11.6-14.8) Platelet Count 267 K/UL (150-450) 251 K/UL (150-450) Mean Platelet Volume 6.5 FL (6.5-10.1) 7.1 FL (6.5-10.1) Neutrophils (%) (Auto) 73.9 % (45.0-75.0) 73.0 % (45.0-75.0) Lymphocytes (%) (Auto) 18.1 % (20.0-45.0) L 18.9 % (20.0-45.0) L Monocytes (%) (Auto) 6.6 % (1.0-10.0) 6.6 % (1.0-10.0) Eosinophils (%) (Auto) 0.8 % (0.0-3.0) 0.9 % (0.0-3.0) Basophils (%) (Auto) 0.6 % (0.0-2.0) 0.7 % (0.0-2.0) Sodium Level 141 MMOL/L (136-145) 140 MMOL/L (136-145) Potassium Level 4.4 MMOL/L (3.5-5.1) 4.3 MMOL/L (3.5-5.1) Chloride Level 106 MMOL/L (98-107) 106 MMOL/L (98-107) Carbon Dioxide Level 28 MMOL/L (21-32) 25 MMOL/L (21-32) Anion Gap 8 mmol/L (5-15) 9 mmol/L (5-15) Blood Urea Nitrogen 21 mg/dL (7-18) H 22 mg/dL (7-18) H Creatinine 1.1 MG/DL (0.55-1.30) 1.1 MG/DL (0.55-1.30) Estimat Glomerular Filtration Rate > 60 mL/min (>60) > 60 mL/min (>60) Glucose Level 103 MG/DL (74-106) 94 MG/DL (74-106) Calcium Level 8.9 MG/DL (8.5-10.1) 8.7 MG/DL (8.5-10.1) Total Bilirubin 0.3 MG/DL (0.2-1.0) 0.5 MG/DL (0.2-1.0) Aspartate Amino Transf (AST/SGOT) 14 U/L (15-37) L 12 U/L (15-37) L Alanine Aminotransferase (ALT/SGPT) 16 U/L (12-78) 26 U/L (12-78) Alkaline Phosphatase 38 U/L (46-116) L 38 U/L (46-116) L Troponin I 0.000 ng/mL (0.000-0.056) Total Protein 7.0 G/DL (6.4-8.2) 6.8 G/DL (6.4-8.2) Albumin 4.0 G/DL (3.4-5.0) 3.8 G/DL (3.4-5.0) Globulin 3.0 g/dL 3.0 g/dL Albumin/Globulin Ratio 1.3 (1.0-2.7) 1.3 (1.0-2.7) Urine Color Pale yellow Urine Appearance Clear Urine pH 7 (4.5-8.0) Urine Specific [place] 1.005 (1.005-1.035) Urine Protein Negative (NEGATIVE) Urine Glucose (UA) Negative (NEGATIVE) Urine Ketones Negative (NEGATIVE) Urine Blood Negative (NEGATIVE) Urine Nitrite Negative (NEGATIVE) Urine Bilirubin Negative (NEGATIVE) Urine Urobilinogen 1 MG/DL (0.0-1.0) H Urine Leukocyte Esterase 1+ (NEGATIVE) H Urine RBC 0-2 /HPF (0 - 0) H Urine WBC 2-4 /HPF (0 - 0) Urine Squamous Epithelial Cells None /LPF (NONE/OCC) Urine Bacteria Few /HPF (NONE) Triglycerides Level 102 MG/DL (30-150) Cholesterol Level 113 MG/DL (< 200) LDL Cholesterol 73 mg/dL (<100) HDL Cholesterol 24 MG/DL (40-60) L Cholesterol/HDL Ratio 4.7 (3.3-4.4) H Thyroid Stimulating Hormone (TSH) 1.961 uiU/mL (0.358-3.740) Height (Feet): 6 Height (Inches): 2.00 Weight (Pounds): 175 Medications Current Medications Medications (Trade) Dose Ordered Sig/Sharon Route PRN Reason Start Time Stop Time Status Last Admin Dose Admin Acetaminophen (Tylenol) 650 mg Q4H PRN ORAL fever 06/22/18 23:00 07/22/18 22:59 Al Hydroxide/Mg Hydroxide (Mylanta II) 30 ml Q6H PRN ORAL dyspepsia 06/22/18 23:00 07/22/18 22:59 Atorvastatin Calcium (Lipitor) 40 mg BEDTIME ORAL 06/23/18 21:00 07/23/18 20:59 Buspirone HCl (Buspar) 15 mg TWICE A DAY ORAL 06/23/18 09:00 07/23/18 08:59 06/23/18 08:45 Carbidopa/Levodopa (Sinemet 25/100) 1 tab THREE TIMES A DAY ORAL 06/23/18 09:00 07/23/18 08:59 06/23/18 13:13 Clonazepam (KlonoPIN) 1 mg BID ORAL 06/23/18 09:00 06/30/18 08:59 06/23/18 08:46 Dextrose (Dextrose 50%) STAT PRN IV Hypoglycemia 06/22/18 23:00 07/22/18 22:59 Finasteride (Proscar) 5 mg DAILY ORAL 06/23/18 09:00 07/23/18 08:59 06/23/18 08:44 Gabapentin (Neurontin) 600 mg THREE TIMES A DAY ORAL 06/23/18 09:00 07/23/18 08:59 06/23/18 13:16 Levetiracetam (Keppra) 250 mg TID ORAL 06/23/18 09:00 07/23/18 08:59 06/23/18 13:16 Lorazepam (Ativan 2mg/ml 1ml) 0.5 mg Q4H PRN IV For Anxiety 06/22/18 23:00 06/29/18 22:59 Mirtazapine (Remeron) 15 mg BEDTIME ORAL 06/23/18 21:00 07/23/18 20:59 Morphine Sulfate (Morphine Sulfate) 1 mg EVERY 4 HOURS PRN IVP For Pain 06/22/18 23:00 06/29/18 22:59 06/23/18 10:18 Ondansetron HCl (Zofran) 4 mg Q6H PRN IVP Nausea & Vomiting 06/22/18 23:00 07/22/18 22:59 Polyethylene Glycol (Miralax) 17 gm HSPRN PRN ORAL Constipation 06/22/18 23:00 07/22/18 22:59 Risperidone (RisperDAL) 1 mg BID ORAL 06/23/18 09:00 07/23/18 08:59 06/23/18 08:46 Tamsulosin HCl (Flomax) 0.4 mg BEDTIME ORAL 06/23/18 21:00 07/23/18 20:59 Zolpidem Tartrate (Ambien) 5 mg HSPRN PRN ORAL Insomnia 06/22/18 23:00 06/29/18 22:59 Assessment/Plan Problem List: (1) Sepsis ICD Codes: A41.9 - Sepsis, unspecified organism SNOMED: 25339751 (2) COPD (chronic obstructive pulmonary disease) ICD Codes: J44.9 - Chronic obstructive pulmonary disease, unspecified SNOMED: 79310610 (3) Recurrent falls ICD Codes: R29.6 - Repeated falls SNOMED: 062724105 (4) Psychiatric disorder ICD Codes: F99 - Mental disorder, not otherwise specified SNOMED: 89328752, 668007395 (5) Seizure disorder ICD Codes: G40.909 - Epilepsy, unspecified, not intractable, without status epilepticus SNOMED: 284496148 (6) HTN (hypertension) ICD Codes: I10 - Essential (primary) hypertension SNOMED: 73908530 (7) ETOH abuse ICD Codes: F10.10 - Alcohol abuse, uncomplicated SNOMED: 42817597, 59629378 Assessment/Plan simpson cultures iv abx check wbc daily psych to see pt/ot Patricio Strong MD Jun 23, 2018 13:43
[2018-06-23 16:00] VITALS: BP_SYST 125; BP_SYST 130; BP_DIAS 74; BP_DIAS 76
--- NOTE | 2018-06-23 19:27 | NUR ---
HAND-OFF: Report given to Krystyna SPENCE. Patient in stable condition.
--- NOTE | 2018-06-23 19:30 | NUR ---
NURSE NOTES: Patient awake in bed, feeling weak. Instructed the use of call light. Call light and needs in reach. Bed in lowest position, lock engaged and alarm on. Will continue to monitor.
[2018-06-23 20:00] VITALS: BP 109/64
[2018-06-23] MEDS: Tamsulosin 0.4mg cap ORAL SCH (20:26)
[2018-06-23] MEDS: Atorvastatin 80mg tab ORAL SCH (20:26)
--- NOTE | 2018-06-23 20:31 | NUR ---
CASE MANAGEMENT: REVIEW 43/M MILA FROM [facility] CC: GENERALIZED WEAKNESS . NECK PAIN . POOR APPETITE SI: COPD . PRIAPISM T 97.7 HR 71 RR 18 BP 121/74 SAT 99% NC/2L WBC 15.4 BUN 21 IS: CXR - NO ACUTE DISEASE. SOME LIMITATIONS DUE TO EXPIRATORY LUNG VOLUMES CT HEAD - IMPRESSION: NO MASS EFFECT, EDEMA OR ACUTE BLEED PATIENT ADMITTED TO MED/SURG UNIT 06/22/2018 DCP: PATIENT IS FROM [facility]
--- NOTE | 2018-06-23 23:15 | Consultation ---
DATE OF CONSULTATION: 06/23/2018 HISTORY OF PRESENT ILLNESS: This is a 43-year-old male patient who came into the hospital. He is very irritable and agitated on the interview. He came into the hospital because he stated that he had generalized weakness. He was very agitated, stating that "no doctor has helped me out" and he did not ask why he has been feeling angry and irritable. He stated he is always irritable, does not have to be a reason why. He continued to be very verbally combative on review. He did not seem to be agitated after conversation, but he did state that he is taking psychotropic medications . He stated he takes Risperdal and states that usually works well . MEDICAL PROBLEMS: He has neuropathy, ambulation, generalized weakness. ALLERGIES: He has number of allergies . PSYCHOTROPIC MEDICATIONS: On admission, he stated that he normally takes Risperdal 1 mg twice a day for agitation and mood stabilization. SUBSTANCE ABUSE HISTORY: Denies any recent drug or alcohol use. PAIN ASSESSMENT: 0/10. DEVELOPMENTAL PROBLEMS: Denies. STRENGTHS: 02:01 [address] a [address] to live. WEAKNESSES: He is impulsive and no support system. SOCIAL HISTORY: He is financially supported by [employer] and Medicare. [facility] MENTAL STATUS EXAMINATION: This is a 43-year-old male. Appearance is disheveled. Attitude, irritable and agitated. Affect, guarded and restricted. Intellect poor. Mood, depressed and anxious. Motor activity, psychomotor agitation. Attention span is poor. Orientation x2. Speech is pressured. Thought process, disorganized and logical. Thought content, no auditory hallucinations or paranoid delusions. Insight and judgment is poor. DIAGNOSES: 1. Bipolar 2. 2. Medical, neuropathy and generalized weakness. 3. Psychosocial stressors, financial. PLAN: My plan is to treat this patient with psychotropic medications to stabilize mood. Provided him with 20 minutes of cognitive behavioral therapy to help him identify his automatic negative thoughts and help him convert those negative thoughts to more positive thoughts to reduce depression, anxiety, and mood lability. Twenty minutes of cognitive behavioral therapy was provided. Chart reviewed and discussed with the staff. Seen and assessed at bedside. Wing Cervantes M.D. DR: CARLOS JOB#: [id number] CC:
--- NOTE | 2018-06-23 23:30 | History and Physical Report ---
DATE OF ADMISSION: 06/22/2018 TIME SEEN: At 4 p.m. CONSULTANTS: 1. . 2. Dustin Marrero M.D. 3. Wing Cervantes M.D. 4. Patricio Strong M.D. CHIEF COMPLAINT: General weakness, sinusitis, leukocytosis, history of frequent falls. BRIEF HISTORY: This is a 43-year-old male from [facility], presented with increased weakness for a week, some falling, became very lethargic, came to [place] [facility], diagnosed with leukocytosis, sinusitis, and general weakness. Admitted to the medical floor for further treatment. Currently, O2 NC, calm in bed, slightly weak. No complaint. REVIEW OF SYSTEMS: No chest pain. Slight short of breath. No nausea, vomiting, or diarrhea. PAST MEDICAL HISTORY: Includes hypertension, COPD, chronic pain, history of priapism, and seizure. PAST SURGICAL HISTORY: Penis surgery. ALLERGIES: Chlorpromazine, divalproex. MEDICATIONS: Include atorvastatin, mirtazapine, , BuSpar, carbidopa, Neurontin, , morphine, Zofran, zolpidem, and lorazepam. SOCIAL HISTORY: Positive smoking. No alcohol. No intravenous drug abuse. FAMILY HISTORY: Noncontributory. PHYSICAL EXAMINATION: GENERAL: Calm in bed, oriented x3, in no acute distress. VITAL SIGNS: Temperature is 97 degrees, pulse 69, respirations 20, and blood pressure 119/70. CARDIOVASCULAR: No murmurs. LUNGS: Poor air exchange. ABDOMEN: Bowel sounds distant. Nontender. Nondistended. EXTREMITIES: Showed no cyanosis, clubbing, or edema. NEUROLOGIC: The patient moves all extremities, slightly weak. LABORATORY DATA: Labs at this time, white count initially 15.4 now 13.8, otherwise CBC is normal. BMP shows BUN 22. AST 12, alkaline phosphatase 38. Troponin is 0.00. Urinalysis show 1+ leukocyte esterase. ASSESSMENT: 1. General weakness. 2. UTI. 3. Sinusitis. 4. Leukocytosis. 5. History of priapism. 6. Hypertension. 7. COPD. 8. Chronic pain. 9. Seizure. 10. Possible Parkinson. PLAN: 1. Resume home medications. 2. PT, dietary evaluation. 3. O2 and pulmonary treatment. 4. CBC, BMP in the morning. 5. Antibiotics per Infectious Disease. 6. Pain control. 7. We will continue to follow the patient. Curtis Gavin D.O. DR: CYN JOB#: [id number] CC:
[2018-06-24] VITALS: BP 114/69
[2018-06-24] MEDS: Morphine Sulfate 2mg/ml Inj IVP PRN ×4 (00:22→18:10)
[2018-06-24 04:00] VITALS: BP 106/61
[2018-06-24 08:00] VITALS: BP 119/63
--- NOTE | 2018-06-24 08:16 | NUR ---
NURSE NOTES: received report from JORDY Greenwood. patient in bed. verbally responsive. no respiratory distress noted no /co pain at this time. bed in the lowest position. call light within reach. alarm on. will continue monitor.
[2018-06-24 08:26] LABS: BASOPHILS % (AUTO) 0.5 % (0.0-2.0); EOSINOPHILS % (AUTO) 0.6 % (0.0-3.0); HEMATOCRIT 46.2 % (42.0-52.0); HEMOGLOBIN 16.3 G/DL (14.2-18.0); LYMPHOCYTES % (AUTO) 10.8 % (20.0-45.0); MEAN CORPUSCULAR VOLUME 100 FL (80-99); MONOCYTES % (AUTO) 4.3 % (1.0-10.0); NEUTROPHILS % (AUTO) 83.7 % (45.0-75.0); PLATELET COUNT 240 K/UL (150-450); RED BLOOD COUNT 4.61 M/UL (4.70-6.10); RED CELL DISTRIBUTION WIDTH 11.8 % (11.6-14.8); WHITE BLOOD COUNT 17.1 K/UL (4.8-10.8)
[2018-06-24 08:39] LABS: ANION GAP 11 mmol/L (5-15); BLOOD UREA NITROGEN 23 mg/dL (7-18); CALCIUM 8.9 MG/DL (8.5-10.1); CARBON DIOXIDE 23 MMOL/L (21-32); CHLORIDE 106 MMOL/L (98-107); CREATININE 1.1 MG/DL (0.55-1.30); POTASSIUM 3.6 MMOL/L (3.5-5.1); SODIUM 140 MMOL/L (136-145)
[2018-06-24] MEDS: BusPIRone 5mg Tab ORAL SCH ×2 (08:59→18:09)
[2018-06-24] MEDS: Levodopa/Carbidopa 25/100 tab ORAL SCH ×3 (08:59→18:09)
--- NOTE | 2018-06-24 09:20 | Infectious Diseases Prog Note ---
Assessment/Plan Assessment/Plan 43 yo male with PMHx of advanced parkinsonism and is wheelchair-bound , Anxiety , COPD, Depression, Seizures and shizophrenia, who fell out of his chair on transferring last month and is now presenting to the ED with increased neck pain poor appetite and dizziness. Leukocytosis - increased Unclear source - Pain, Viral, No sign of bacterial infection No Fever f/u blood and urine Cx Advanced parkinsonism and is wheelchair-bound Anxiety COPD Depression Seizures Shizophrenia PLAN - Start Empiric Vancomycin and Ceftriaxone - f/u cultures - Monitor CBC and Temps We will continue to follow the patient during this hospitalization. Subjective Allergies: Coded Allergies: CHLORPROMAZINE (Verified Allergy, Unknown, 11/13/17) CHLORPROPAMIDE (Unverified Allergy, Unknown, 01/28/18) DIVALPROEX SODIUM (Verified Allergy, Unknown, 04/17/17) FISH CONTAINING PRODUCTS (Verified Allergy, Unknown, 06/20/17) FISH OIL (Unverified Allergy, Unknown, 01/28/18) Subjective Patient with increased leukocytosis today still afebrile No New complaints Objective Vital Signs Last 24 Hour Vital Signs Date Time Temp Pulse Resp B/P (MAP) Pulse Ox O2 Delivery O2 Flow Rate FiO2 06/24/18 04:00 98.2 63 19 106/61 (76) 99 06/24/18 00:00 98.3 64 18 114/69 (84) 96 06/23/18 21:00 Nasal Cannula 2.0 06/23/18 20:00 98.5 68 18 109/64 (79) 96 06/23/18 16:00 98.9 76 18 130/76 (94) 98 06/23/18 16:00 98.0 71 19 125/74 (91) 98 06/23/18 12:00 97.9 69 20 119/70 (86) 97 06/23/18 10:48 98.3 Height (Feet): 6 Height (Inches): 2.00 Weight (Pounds): 175 Objective Gen: NAD, well appearing, alert HEENT: NCAT, MMM, EOMI ABD: Soft, NT, ND, + BS NEURO: A/O x 4, Strength and Sensation Grossly decreased Laboratory Tests Test 06/24/18 07:57 White Blood Count 17.1 K/UL (4.8-10.8) H Red Blood Count 4.61 M/UL (4.70-6.10) L Hemoglobin 16.3 G/DL (14.2-18.0) Hematocrit 46.2 % (42.0-52.0) Mean Corpuscular Volume 100 FL (80-99) H Mean Corpuscular Hemoglobin 35.5 PG (27.0-31.0) H Mean Corpuscular Hemoglobin Concent 35.4 G/DL (32.0-36.0) Red Cell Distribution Width 11.8 % (11.6-14.8) Platelet Count 240 K/UL (150-450) Mean Platelet Volume 7.2 FL (6.5-10.1) Neutrophils (%) (Auto) 83.7 % (45.0-75.0) H Lymphocytes (%) (Auto) 10.8 % (20.0-45.0) L Monocytes (%) (Auto) 4.3 % (1.0-10.0) Eosinophils (%) (Auto) 0.6 % (0.0-3.0) Basophils (%) (Auto) 0.5 % (0.0-2.0) Sodium Level 140 MMOL/L (136-145) Potassium Level 3.6 MMOL/L (3.5-5.1) Chloride Level 106 MMOL/L (98-107) Carbon Dioxide Level 23 MMOL/L (21-32) Anion Gap 11 mmol/L (5-15) Blood Urea Nitrogen 23 mg/dL (7-18) H Creatinine 1.1 MG/DL (0.55-1.30) Estimat Glomerular Filtration Rate > 60 mL/min (>60) Glucose Level 148 MG/DL (74-106) H Calcium Level 8.9 MG/DL (8.5-10.1) Current Medications Medications (Trade) Dose Ordered Sig/Sharon Route PRN Reason Start Time Stop Time Status Last Admin Dose Admin Acetaminophen (Tylenol) 650 mg Q4H PRN ORAL fever 06/22/18 23:00 07/22/18 22:59 Al Hydroxide/Mg Hydroxide (Mylanta II) 30 ml Q6H PRN ORAL dyspepsia 06/22/18 23:00 07/22/18 22:59 Atorvastatin Calcium (Lipitor) 40 mg BEDTIME ORAL 06/23/18 21:00 07/23/18 20:59 06/23/18 20:26 Buspirone HCl (Buspar) 15 mg TWICE A DAY ORAL 06/23/18 09:00 07/23/18 08:59 06/24/18 08:59 Carbidopa/Levodopa (Sinemet 25/100) 1 tab THREE TIMES A DAY ORAL 06/23/18 09:00 07/23/18 08:59 06/24/18 08:59 Clonazepam (KlonoPIN) 1 mg BID ORAL 06/23/18 09:00 06/30/18 08:59 06/24/18 08:58 Dextrose (Dextrose 50%) STAT PRN IV Hypoglycemia 06/22/18 23:00 07/22/18 22:59 Finasteride (Proscar) 5 mg DAILY ORAL 06/23/18 09:00 07/23/18 08:59 06/24/18 08:59 Gabapentin (Neurontin) 600 mg THREE TIMES A DAY ORAL 06/23/18 09:00 07/23/18 08:59 06/24/18 08:59 Levetiracetam (Keppra) 250 mg TID ORAL 06/23/18 09:00 07/23/18 08:59 06/24/18 08:59 Lorazepam (Ativan 2mg/ml 1ml) 0.5 mg Q4H PRN IV For Anxiety 06/22/18 23:00 06/29/18 22:59 Mirtazapine (Remeron) 15 mg BEDTIME ORAL 06/23/18 21:00 07/23/18 20:59 06/23/18 20:25 Morphine Sulfate (Morphine Sulfate) 1 mg EVERY 4 HOURS PRN IVP For Pain 06/22/18 23:00 06/29/18 22:59 06/24/18 05:56 Ondansetron HCl (Zofran) 4 mg Q6H PRN IVP Nausea & Vomiting 06/22/18 23:00 07/22/18 22:59 Polyethylene Glycol (Miralax) 17 gm HSPRN PRN ORAL Constipation 06/22/18 23:00 07/22/18 22:59 Risperidone (RisperDAL) 1 mg BID ORAL 06/23/18 09:00 07/23/18 08:59 06/24/18 08:59 Tamsulosin HCl (Flomax) 0.4 mg BEDTIME ORAL 06/23/18 21:00 07/23/18 20:59 06/23/18 20:26 Zolpidem Tartrate (Ambien) 5 mg HSPRN PRN ORAL Insomnia 06/22/18 23:00 06/29/18 22:59 Axel Alonso MD Jun 24, 2018 09:20
--- NOTE | 2018-06-24 10:52 | NUR ---
REHAB MED PT NOTE CONSULT ANNEMARIE SHELTON, PATIENT AT BASELINE LEVEL OF FUNCTION NO SKILLED NEEDS AT THIS TIME. DC PT ORDER. KEYONA JEWELL PT DPT Addendum: 06/24/18 at 1052 by KEYONA JEWELL PT Amended: Links added.
[2018-06-24] MEDS ORDERED: Vancomycin 1.5gm/D5W 275ml IVPB SCH (11:00)
[2018-06-24] MEDS: cefTRIAXone 1 GM in D5W 55 ML IVPB SCH (11:00)
[2018-06-24] MEDS: Vancomycin 1 GM in D5W 275 ML IVPB SCH (11:57)
[2018-06-24 12:00] VITALS: BP 116/69
--- NOTE | 2018-06-24 12:34 | Pulmonology Progress Note ---
Assessment/Plan Problems: (1) Sepsis (2) COPD (chronic obstructive pulmonary disease) (3) Recurrent falls (4) Psychiatric disorder (5) Seizure disorder (6) HTN (hypertension) (7) ETOH abuse Assessment/Plan respiratory treatment titrate fio2 to sat of 92 simpson cultures ID evaluation monitor BP psych to follow dv prophylaxis check WBC in am Subjective ROS Limited/Unobtainable: No Constitutional: Reports: no symptoms HEENT: Repors: no symptoms Respiratory: Reports: no symptoms Allergies: Coded Allergies: CHLORPROMAZINE (Verified Allergy, Unknown, 11/13/17) CHLORPROPAMIDE (Unverified Allergy, Unknown, 01/28/18) DIVALPROEX SODIUM (Verified Allergy, Unknown, 04/17/17) FISH CONTAINING PRODUCTS (Verified Allergy, Unknown, 06/20/17) FISH OIL (Unverified Allergy, Unknown, 01/28/18) Objective Last 24 Hour Vital Signs Date Time Temp Pulse Resp B/P (MAP) Pulse Ox O2 Delivery O2 Flow Rate FiO2 06/24/18 09:00 Nasal Cannula 2.0 06/24/18 08:00 98.3 63 21 119/63 (81) 99 06/24/18 04:00 98.2 63 19 106/61 (76) 99 06/24/18 00:00 98.3 64 18 114/69 (84) 96 06/23/18 21:00 Nasal Cannula 2.0 06/23/18 20:00 98.5 68 18 109/64 (79) 96 06/23/18 16:00 98.9 76 18 130/76 (94) 98 06/23/18 16:00 98.0 71 19 125/74 (91) 98 Intake and Output 06/23/18 06/24/18 19:00 07:00 Intake Total 1260 ml Balance 1260 ml Intake Oral 1260 ml # Voids 9 2 General Appearance: WD/WN HEENT: normocephalic, atraumatic Respiratory/Chest: chest wall non-tender, lungs clear Cardiovascular: normal peripheral pulses, normal rate Abdomen: normal bowel sounds, no organomegaly Genitourinary: normal external genitalia Extremities: no clubbing Skin: no ulcers Neurologic/Psychiatric: director of informatics II-XII grossly normal Microbiology Date/Time Source Procedure Growth Status 06/22/18 19:25 Rectum VRE Culture Pending Resulted 06/22/18 19:25 Rectum - Preliminary Resulted Laboratory Tests 06/24/18 07:57: White Blood Count 17.1H, Red Blood Count 4.61L, Hemoglobin 16.3, Hematocrit 46.2 , Mean Corpuscular Volume 100H, Mean Corpuscular Hemoglobin 35.5H, Mean Corpuscular Hemoglobin Concent 35.4, Red Cell Distribution Width 11.8, Platelet Count 240, Mean Platelet Volume 7.2, Neutrophils (%) (Auto) 83.7H, Lymphocytes ( %) (Auto) 10.8L, Monocytes (%) (Auto) 4.3, Eosinophils (%) (Auto) 0.6, Basophils (%) (Auto) 0.5, Sodium Level 140, Potassium Level 3.6, Chloride Level 106, Carbon Dioxide Level 23, Anion Gap 11, Blood Urea Nitrogen 23H, Creatinine 1.1, Estimat Glomerular Filtration Rate > 60, Glucose Level 148H, Calcium Level 8.9 Current Medications Medications (Trade) Dose Ordered Sig/Sharon Route PRN Reason Start Time Stop Time Status Last Admin Dose Admin Acetaminophen (Tylenol) 650 mg Q4H PRN ORAL fever 06/22/18 23:00 07/22/18 22:59 Al Hydroxide/Mg Hydroxide (Mylanta II) 30 ml Q6H PRN ORAL dyspepsia 06/22/18 23:00 07/22/18 22:59 Atorvastatin Calcium (Lipitor) 40 mg BEDTIME ORAL 06/23/18 21:00 07/23/18 20:59 06/23/18 20:26 Buspirone HCl (Buspar) 15 mg TWICE A DAY ORAL 06/23/18 09:00 07/23/18 08:59 06/24/18 08:59 Carbidopa/Levodopa (Sinemet 25/100) 1 tab THREE TIMES A DAY ORAL 06/23/18 09:00 07/23/18 08:59 06/24/18 08:59 Ceftriaxone Sodium 1 gm/ Dextrose 55 ml @ 110 mls/hr Q24H IVPB 06/24/18 11:00 07/01/18 10:59 06/24/18 11:00 Clonazepam (KlonoPIN) 1 mg BID ORAL 06/23/18 09:00 06/30/18 08:59 06/24/18 08:58 Dextrose (Dextrose 50%) STAT PRN IV Hypoglycemia 06/22/18 23:00 07/22/18 22:59 Finasteride (Proscar) 5 mg DAILY ORAL 06/23/18 09:00 07/23/18 08:59 06/24/18 08:59 Gabapentin (Neurontin) 600 mg THREE TIMES A DAY ORAL 06/23/18 09:00 07/23/18 08:59 06/24/18 08:59 Levetiracetam (Keppra) 250 mg TID ORAL 06/23/18 09:00 07/23/18 08:59 06/24/18 08:59 Lorazepam (Ativan 2mg/ml 1ml) 0.5 mg Q4H PRN IV For Anxiety 06/22/18 23:00 06/29/18 22:59 Mirtazapine (Remeron) 15 mg BEDTIME ORAL 06/23/18 21:00 07/23/18 20:59 06/23/18 20:25 Morphine Sulfate (Morphine Sulfate) 1 mg EVERY 4 HOURS PRN IVP For Pain 06/22/18 23:00 06/29/18 22:59 06/24/18 05:56 Ondansetron HCl (Zofran) 4 mg Q6H PRN IVP Nausea & Vomiting 06/22/18 23:00 07/22/18 22:59 Polyethylene Glycol (Miralax) 17 gm HSPRN PRN ORAL Constipation 06/22/18 23:00 07/22/18 22:59 Risperidone (RisperDAL) 1 mg BID ORAL 06/23/18 09:00 07/23/18 08:59 06/24/18 08:59 Tamsulosin HCl (Flomax) 0.4 mg BEDTIME ORAL 06/23/18 21:00 07/23/18 20:59 06/23/18 20:26 Vancomycin HCl (Vanco rx to dose) 1 ea DAILY PRN MISC Per rx protocol 06/24/18 09:45 07/24/18 09:44 Vancomycin HCl 1 gm/Dextrose 275 ml @ 183.708 mls/hr Q8H IVPB 06/24/18 20:00 06/29/18 19:59 06/24/18 11:57 Vancomycin HCl/ Dextrose 275 ml @ 137.5 mls/ hr ONCE IVPB 06/24/18 11:00 06/24/18 13:00 06/24/18 11:00 Zolpidem Tartrate (Ambien) 5 mg HSPRN PRN ORAL Insomnia 06/22/18 23:00 06/29/18 22:59 Patricio Strong MD Jun 24, 2018 12:34
--- NOTE | 2018-06-24 12:37 | General Progress Note ---
Assessment/Plan Problem List: (1) Sepsis ICD Codes: A41.9 - Sepsis, unspecified organism SNOMED: 09582013 (2) UTI (urinary tract infection) ICD Codes: N39.0 - Urinary tract infection, site not specified SNOMED: 11686113 (3) Priapism ICD Codes: N48.30 - Priapism, unspecified SNOMED: 3865831, 859922915 (4) Seizure disorder ICD Codes: G40.909 - Epilepsy, unspecified, not intractable, without status epilepticus SNOMED: 308806008 (5) Chronic pain ICD Codes: G89.29 - Other chronic pain SNOMED: 76971565 Status: unchanged Assessment/Plan o2 pulm tx abx ot diet cbc bmp am ltach eval Subjective Constitutional: Reports: weakness Allergies: Coded Allergies: CHLORPROMAZINE (Verified Allergy, Unknown, 11/13/17) CHLORPROPAMIDE (Unverified Allergy, Unknown, 01/28/18) DIVALPROEX SODIUM (Verified Allergy, Unknown, 04/17/17) FISH CONTAINING PRODUCTS (Verified Allergy, Unknown, 06/20/17) FISH OIL (Unverified Allergy, Unknown, 01/28/18) All Systems: reviewed and negative except above Subjective weak tired Objective Last 24 Hour Vital Signs Date Time Temp Pulse Resp B/P (MAP) Pulse Ox O2 Delivery O2 Flow Rate FiO2 06/24/18 09:00 Nasal Cannula 2.0 06/24/18 08:00 98.3 63 21 119/63 (81) 99 06/24/18 04:00 98.2 63 19 106/61 (76) 99 06/24/18 00:00 98.3 64 18 114/69 (84) 96 06/23/18 21:00 Nasal Cannula 2.0 06/23/18 20:00 98.5 68 18 109/64 (79) 96 06/23/18 16:00 98.9 76 18 130/76 (94) 98 06/23/18 16:00 98.0 71 19 125/74 (91) 98 Intake and Output 06/23/18 06/24/18 19:00 07:00 Intake Total 1260 ml Balance 1260 ml Intake Oral 1260 ml # Voids 9 2 Laboratory Tests 06/24/18 07:57: White Blood Count 17.1H, Red Blood Count 4.61L, Hemoglobin 16.3, Hematocrit 46.2 , Mean Corpuscular Volume 100H, Mean Corpuscular Hemoglobin 35.5H, Mean Corpuscular Hemoglobin Concent 35.4, Red Cell Distribution Width 11.8, Platelet Count 240, Mean Platelet Volume 7.2, Neutrophils (%) (Auto) 83.7H, Lymphocytes ( %) (Auto) 10.8L, Monocytes (%) (Auto) 4.3, Eosinophils (%) (Auto) 0.6, Basophils (%) (Auto) 0.5, Sodium Level 140, Potassium Level 3.6, Chloride Level 106, Carbon Dioxide Level 23, Anion Gap 11, Blood Urea Nitrogen 23H, Creatinine 1.1, Estimat Glomerular Filtration Rate > 60, Glucose Level 148H, Calcium Level 8.9 Height (Feet): 6 Height (Inches): 2.00 Weight (Pounds): 175 General Appearance: lethargic EENT: normal ENT inspection Neck: normal alignment Cardiovascular: normal peripheral pulses, normal rate, regular rhythm Respiratory/Chest: chest wall non-tender, lungs clear, normal breath sounds Abdomen: normal bowel sounds, non tender, soft Extremities: normal inspection Edema: no edema noted Arm (L), no edema noted Arm (R), no edema noted Leg (L), no edema noted Leg (R), no edema noted Pedal (L), no edema noted Pedal (R), no edema noted Generalized Neurologic: responsive, motor weakness Skin: normal pigmentation, warm/dry Curtis Gavin DO Jun 24, 2018 12:37
--- NOTE | 2018-06-24 15:12 | NUR ---
Social Service Note Faxed referral to [facility] at [facility] [phone] (P) [phone] (F).
[2018-06-24 16:00] VITALS: BP 114/67
--- NOTE | 2018-06-24 16:00 | Diagnostic Imaging Report ---
APPROVED REPORT CPT Code: 79508 Present Symptoms Comments: Screening BILATERAL: Imaging reveals a patent deep venous system bilaterally. There is no evidence of thrombus within the femoral, popliteal or tibial segments. The greater saphenous veins are also within normal limits. Doppler indicates normal spontaneous flow within these segments.
--- NOTE | 2018-06-24 16:30 | Progress Note ---
DATE: 06/24/2018 SUBJECTIVE: This is a 43-year-old male patient. The patient has got generalized weakness. He has some confusion and disorganized thought process. He does have mood lability worsened by stress of his medical illness that is why he does require inpatient treatment at this time. He is very agitated and irritable on interview. MENTAL STATUS EXAMINATION: The patient is a 43-year-old male. Appearance is disheveled. Attitude, irritable and agitated. Affect, guarded and restricted. Intellect poor. Mood depressed and anxious. Motor activity, psychomotor . Attention span is poor. Orientation x2. Speech is pressured. Thought processes, disorganized and illogical. Thought content, he has some paranoid delusions, auditory hallucinations. Insight and judgment is poor. DIAGNOSIS: Bipolar 2. PLAN: Treat him with a medication regimen consisting of BuSpar at a dose of 20 mg twice a day, Klonopin at a dose of 1 mg twice a day, Ativan at a dose of 0.5 mg IV q.4 h, Risperdal at a dose of 1 mg twice a day, Remeron at a dose of 15 mg at bedtime, Neurontin 600 mg three times a day. Provided him with 20 minutes of cognitive behavioral therapy to help him identify his automatic negative thoughts and help him convert those negative thoughts to more positive thoughts to reduce depression, anxiety, suicidality. Chart reviewed and discussed with staff. Seen and assessed in his room. Wing Cervantes M.D. DR: Alexandro JOB#: [id number] CC:
--- NOTE | 2018-06-24 19:14 | NUR ---
HAND-OFF: Report given to JORDY Greenwood.
--- NOTE | 2018-06-24 19:40 | NUR ---
NURSE NOTES: Patient awake in bed, still feeling weak, asking for breathing treatment. Call light and needs in reach. Bed in lowest position, lock engaged and alarm on. Will continue to monitor. Dr. Gavin made aware of patient's request, was ok for pt to have it and contact Dr. Strong for order. Waiting for Dr. Strong.
[2018-06-24 20:00] VITALS: BP 121/72
[2018-06-24] MEDS ORDERED: Albuterol/Ipratropium 3ml neb HHN PRN (20:05)
[2018-06-24] MEDS: Atorvastatin 80mg tab ORAL SCH (20:08)
[2018-06-24] MEDS: Tamsulosin 0.4mg cap ORAL SCH (20:08)
[2018-06-25] VITALS: BP 108/59
[2018-06-25] MEDS: Vancomycin 1 GM in D5W 275 ML IVPB SCH ×2 (03:47→12:18)
[2018-06-25 04:00] VITALS: BP 145/87
[2018-06-25 07:03] LABS: BASOPHILS % (AUTO) 0.7 % (0.0-2.0); EOSINOPHILS % (AUTO) 1.2 % (0.0-3.0); LYMPHOCYTES % (AUTO) 21.4 % (20.0-45.0); MEAN CORPUSCULAR VOLUME 100 FL (80-99); MONOCYTES % (AUTO) 5.2 % (1.0-10.0); NEUTROPHILS % (AUTO) 71.5 % (45.0-75.0); PLATELET COUNT 223 K/UL (150-450); RED CELL DISTRIBUTION WIDTH 11.8 % (11.6-14.8); WHITE BLOOD COUNT 9.4 K/UL (4.8-10.8)
[2018-06-25 07:18] LABS: ANION GAP 10 mmol/L (5-15); BLOOD UREA NITROGEN 25 mg/dL (7-18); CALCIUM 8.6 MG/DL (8.5-10.1); CARBON DIOXIDE 22 MMOL/L (21-32); CHLORIDE 107 MMOL/L (98-107); CREATININE 0.9 MG/DL (0.55-1.30); SODIUM 139 MMOL/L (136-145)
--- NOTE | 2018-06-25 07:22 | NUR ---
HAND-OFF: Report given to JORDY Suarez.
--- NOTE | 2018-06-25 07:34 | NUR ---
NURSE NOTES: pt in bed with no sob nor in any form of distress noted. denies any pain at this time. Bed in lowest position. call light within reach at all time.
[2018-06-25 08:00] VITALS: BP 119/75
[2018-06-25] MEDS: Levodopa/Carbidopa 25/100 tab ORAL SCH ×3 (08:01→17:19)
[2018-06-25] MEDS: BusPIRone 5mg Tab ORAL SCH ×2 (08:01→17:18)
[2018-06-25] MEDS: Morphine Sulfate 2mg/ml Inj IVP PRN ×5 (08:08→23:31)
--- NOTE | 2018-06-25 09:17 | General Progress Note ---
Assessment/Plan Problem List: (1) Sepsis ICD Codes: A41.9 - Sepsis, unspecified organism SNOMED: 63423417 (2) UTI (urinary tract infection) ICD Codes: N39.0 - Urinary tract infection, site not specified SNOMED: 92422802 (3) Priapism ICD Codes: N48.30 - Priapism, unspecified SNOMED: 2957811, 774842208 (4) Seizure disorder ICD Codes: G40.909 - Epilepsy, unspecified, not intractable, without status epilepticus SNOMED: 099032390 (5) Chronic pain ICD Codes: G89.29 - Other chronic pain SNOMED: 71510145 Status: unchanged Assessment/Plan o2 pulm tx abx ot diet cbc bmp am ltach eval Subjective Constitutional: Reports: weakness Allergies: Coded Allergies: CHLORPROMAZINE (Verified Allergy, Unknown, 11/13/17) CHLORPROPAMIDE (Unverified Allergy, Unknown, 01/28/18) DIVALPROEX SODIUM (Verified Allergy, Unknown, 04/17/17) FISH CONTAINING PRODUCTS (Verified Allergy, Unknown, 06/20/17) FISH OIL (Unverified Allergy, Unknown, 01/28/18) All Systems: reviewed and negative except above Subjective o2nc weak tired Objective Last 24 Hour Vital Signs Date Time Temp Pulse Resp B/P (MAP) Pulse Ox O2 Delivery O2 Flow Rate FiO2 06/25/18 08:38 97.8 06/25/18 04:00 97.8 80 17 145/87 (106) 97 06/25/18 00:00 97.5 70 17 108/59 (75) 96 06/24/18 21:00 Nasal Cannula 2.0 06/24/18 20:25 Nasal Cannula 2.0 28 06/24/18 20:25 97 Nasal Cannula 2.0 28 06/24/18 20:24 74 20 97 Nasal Cannula 2.0 28 06/24/18 20:22 71 20 Nasal Cannula 2.0 28 06/24/18 20:20 74 20 Nasal Cannula 2.0 28 06/24/18 20:00 97.8 76 18 121/72 (88) 97 06/24/18 16:00 98.2 75 20 114/67 (83) 98 06/24/18 12:00 98.1 78 21 116/69 (85) 98 Intake and Output 06/24/18 06/25/18 19:00 07:00 Intake Total 1142.411 ml 275.000 ml Balance 1142.411 ml 275.000 ml Intake Oral 720 ml IV Total 422.411 ml 275.000 ml # Voids 7 3 Laboratory Tests 06/25/18 05:55: White Blood Count 9.4, Red Blood Count 4.20L, Hemoglobin 15.0, Hematocrit 42.0, Mean Corpuscular Volume 100H, Mean Corpuscular Hemoglobin 35.8H, Mean Corpuscular Hemoglobin Concent 35.8, Red Cell Distribution Width 11.8, Platelet Count 223, Mean Platelet Volume 6.9, Neutrophils (%) (Auto) 71.5, Lymphocytes (% ) (Auto) 21.4, Monocytes (%) (Auto) 5.2, Eosinophils (%) (Auto) 1.2, Basophils ( %) (Auto) 0.7, Sodium Level 139, Potassium Level 4.0, Chloride Level 107, Carbon Dioxide Level 22, Anion Gap 10, Blood Urea Nitrogen 25H, Creatinine 0.9, Estimat Glomerular Filtration Rate > 60, Glucose Level 101, Calcium Level 8.6 Height (Feet): 6 Height (Inches): 2.00 Weight (Pounds): 175 General Appearance: lethargic EENT: normal ENT inspection Neck: normal alignment Cardiovascular: normal peripheral pulses, normal rate, regular rhythm Respiratory/Chest: chest wall non-tender, lungs clear, normal breath sounds Abdomen: normal bowel sounds, non tender, soft Extremities: normal inspection Edema: no edema noted Arm (L), no edema noted Arm (R), no edema noted Leg (L), no edema noted Leg (R), no edema noted Pedal (L), no edema noted Pedal (R), no edema noted Generalized Neurologic: responsive, motor weakness Skin: normal pigmentation, warm/dry Curtis Gavin DO Jun 25, 2018 09:17
[2018-06-25] MEDS ORDERED: MYLANTA II30 ML PO (10:28)
[2018-06-25] MEDS ORDERED: DUONEB 0.5-3(2.53 ML HHN (10:30)
--- NOTE | 2018-06-25 10:31 | Infectious Diseases Prog Note ---
Assessment/Plan Assessment/Plan 43 yo male with PMHx of advanced parkinsonism and is wheelchair-bound , Anxiety , COPD, Depression, Seizures and shizophrenia, who fell out of his chair on transferring last month and is now presenting to the ED with increased neck pain poor appetite and dizziness. Leukocytosis - increased Unclear source - Pain, Viral, No sign of bacterial infection No Fever f/u blood and urine Cx Advanced parkinsonism and is wheelchair-bound Anxiety COPD Depression Seizures Shizophrenia PLAN - Continue empiric Vancomycin #2 and Ceftriaxone #2 - f/u cultures - Monitor CBC and Temps We will continue to follow the patient during this hospitalization. Subjective Allergies: Coded Allergies: CHLORPROMAZINE (Verified Allergy, Unknown, 11/13/17) CHLORPROPAMIDE (Unverified Allergy, Unknown, 01/28/18) DIVALPROEX SODIUM (Verified Allergy, Unknown, 04/17/17) FISH CONTAINING PRODUCTS (Verified Allergy, Unknown, 06/20/17) FISH OIL (Unverified Allergy, Unknown, 01/28/18) Subjective Patient with increased leukocytosis yesterday, Now resolved still afebrile No New complaints Objective Vital Signs Last 24 Hour Vital Signs Date Time Temp Pulse Resp B/P (MAP) Pulse Ox O2 Delivery O2 Flow Rate FiO2 06/25/18 09:47 Nasal Cannula 2.0 06/25/18 08:38 97.8 06/25/18 08:00 97.2 90 18 119/75 (90) 97 06/25/18 04:00 97.8 80 17 145/87 (106) 97 06/25/18 00:00 97.5 70 17 108/59 (75) 96 06/24/18 21:00 Nasal Cannula 2.0 06/24/18 20:25 Nasal Cannula 2.0 28 06/24/18 20:25 97 Nasal Cannula 2.0 28 06/24/18 20:24 74 20 97 Nasal Cannula 2.0 28 06/24/18 20:22 71 20 Nasal Cannula 2.0 28 06/24/18 20:20 74 20 Nasal Cannula 2.0 28 06/24/18 20:00 97.8 76 18 121/72 (88) 97 06/24/18 16:00 98.2 75 20 114/67 (83) 98 06/24/18 12:00 98.1 78 21 116/69 (85) 98 Height (Feet): 6 Height (Inches): 2.00 Weight (Pounds): 175 Objective Gen: NAD, well appearing, alert HEENT: NCAT, MMM, EOMI LUNGS; CTAB ABD: Soft, NT, ND, + BS NEURO: A/O x 4, Strength and Sensation Grossly decreased Microbiology Date/Time Source Procedure Growth Status 06/22/18 19:25 Rectum VRE Culture - Final NO VANCOMYCIN RESISTANT ENTEROCOCCUS ... Complete 06/22/18 19:25 Rectum - Final NO CARBAPENEM-RESISTANT ENTEROBACTERI... Complete Laboratory Tests Test 06/25/18 05:55 White Blood Count 9.4 K/UL (4.8-10.8) Red Blood Count 4.20 M/UL (4.70-6.10) L Hemoglobin 15.0 G/DL (14.2-18.0) Hematocrit 42.0 % (42.0-52.0) Mean Corpuscular Volume 100 FL (80-99) H Mean Corpuscular Hemoglobin 35.8 PG (27.0-31.0) H Mean Corpuscular Hemoglobin Concent 35.8 G/DL (32.0-36.0) Red Cell Distribution Width 11.8 % (11.6-14.8) Platelet Count 223 K/UL (150-450) Mean Platelet Volume 6.9 FL (6.5-10.1) Neutrophils (%) (Auto) 71.5 % (45.0-75.0) Lymphocytes (%) (Auto) 21.4 % (20.0-45.0) Monocytes (%) (Auto) 5.2 % (1.0-10.0) Eosinophils (%) (Auto) 1.2 % (0.0-3.0) Basophils (%) (Auto) 0.7 % (0.0-2.0) Sodium Level 139 MMOL/L (136-145) Potassium Level 4.0 MMOL/L (3.5-5.1) Chloride Level 107 MMOL/L (98-107) Carbon Dioxide Level 22 MMOL/L (21-32) Anion Gap 10 mmol/L (5-15) Blood Urea Nitrogen 25 mg/dL (7-18) H Creatinine 0.9 MG/DL (0.55-1.30) Estimat Glomerular Filtration Rate > 60 mL/min (>60) Glucose Level 101 MG/DL (74-106) Calcium Level 8.6 MG/DL (8.5-10.1) Current Medications Medications (Trade) Dose Ordered Sig/Sharon Route PRN Reason Start Time Stop Time Status Last Admin Dose Admin Acetaminophen (Tylenol) 650 mg Q4H PRN ORAL fever 06/22/18 23:00 07/22/18 22:59 Al Hydroxide/Mg Hydroxide (Mylanta II) 30 ml Q6H PRN ORAL dyspepsia 06/22/18 23:00 07/22/18 22:59 Albuterol/ Ipratropium (Albuterol/ Ipratropium) 3 ml Q4H PRN HHN Shortness of Breath 06/24/18 20:05 06/29/18 20:04 06/24/18 20:18 Atorvastatin Calcium (Lipitor) 40 mg BEDTIME ORAL 06/23/18 21:00 07/23/18 20:59 06/24/18 20:08 Buspirone HCl (Buspar) 15 mg TWICE A DAY ORAL 06/23/18 09:00 07/23/18 08:59 06/25/18 08:01 Carbidopa/Levodopa (Sinemet 25/100) 1 tab THREE TIMES A DAY ORAL 06/23/18 09:00 07/23/18 08:59 06/25/18 08:01 Ceftriaxone Sodium 1 gm/ Dextrose 55 ml @ 110 mls/hr Q24H IVPB 06/24/18 11:00 07/01/18 10:59 06/24/18 11:00 Clonazepam (KlonoPIN) 1 mg BID ORAL 06/23/18 09:00 06/30/18 08:59 06/25/18 08:01 Dextrose (Dextrose 50%) STAT PRN IV Hypoglycemia 06/22/18 23:00 07/22/18 22:59 Finasteride (Proscar) 5 mg DAILY ORAL 06/23/18 09:00 07/23/18 08:59 06/25/18 08:00 Gabapentin (Neurontin) 600 mg THREE TIMES A DAY ORAL 06/23/18 09:00 07/23/18 08:59 06/24/18 18:09 Levetiracetam (Keppra) 250 mg TID ORAL 06/23/18 09:00 07/23/18 08:59 06/25/18 08:01 Lorazepam (Ativan 2mg/ml 1ml) 0.5 mg Q4H PRN IV For Anxiety 06/22/18 23:00 06/29/18 22:59 Mirtazapine (Remeron) 15 mg BEDTIME ORAL 06/23/18 21:00 07/23/18 20:59 06/24/18 20:08 Morphine Sulfate (Morphine Sulfate) 1 mg EVERY 4 HOURS PRN IVP For Pain 06/22/18 23:00 06/29/18 22:59 06/25/18 08:08 Ondansetron HCl (Zofran) 4 mg Q6H PRN IVP Nausea & Vomiting 06/22/18 23:00 07/22/18 22:59 Polyethylene Glycol (Miralax) 17 gm HSPRN PRN ORAL Constipation 06/22/18 23:00 07/22/18 22:59 Risperidone (RisperDAL) 1 mg BID ORAL 06/23/18 09:00 07/23/18 08:59 06/25/18 08:01 Tamsulosin HCl (Flomax) 0.4 mg BEDTIME ORAL 06/23/18 21:00 07/23/18 20:59 06/24/18 20:08 Vancomycin HCl (Vanco rx to dose) 1 ea DAILY PRN MISC Per rx protocol 06/24/18 09:45 07/24/18 09:44 Vancomycin HCl 1 gm/Dextrose 275 ml @ 183.708 mls/hr Q8H IVPB 06/24/18 20:00 06/29/18 19:59 06/25/18 03:47 Zolpidem Tartrate (Ambien) 5 mg HSPRN PRN ORAL Insomnia 06/22/18 23:00 06/29/18 22:59 Axel Alonso MD Jun 25, 2018 10:31
[2018-06-25] MEDS ORDERED: AMBIEN5 MG ORAL (10:33)
[2018-06-25] MEDS: cefTRIAXone 1 GM in D5W 55 ML IVPB SCH (11:11)
[2018-06-25 12:00] VITALS: BP 123/74
[2018-06-25] MEDS ORDERED: LEXAPRO10 MG ORAL (12:38)
[2018-06-25] MEDS: LORazepam Inj 2mg/ml 1ml IV PRN ×2 (12:45→17:28)
--- NOTE | 2018-06-25 13:53 | Pulmonology Progress Note ---
Assessment/Plan Problems: (1) Sepsis (2) COPD (chronic obstructive pulmonary disease) (3) Recurrent falls (4) Psychiatric disorder (5) Seizure disorder (6) HTN (hypertension) (7) ETOH abuse Assessment/Plan doing better respiratory treatment titrate fio2 to sat of 92 simpson cultures ID evaluation appreciated monitor BP psych to follow dv prophylaxis check WBC in am pt/ot Subjective ROS Limited/Unobtainable: No Constitutional: Reports: no symptoms HEENT: Repors: no symptoms Respiratory: Reports: no symptoms Allergies: Coded Allergies: CHLORPROMAZINE (Verified Allergy, Unknown, 11/13/17) CHLORPROPAMIDE (Unverified Allergy, Unknown, 01/28/18) DIVALPROEX SODIUM (Verified Allergy, Unknown, 04/17/17) FISH CONTAINING PRODUCTS (Verified Allergy, Unknown, 06/20/17) FISH OIL (Unverified Allergy, Unknown, 01/28/18) Objective Last 24 Hour Vital Signs Date Time Temp Pulse Resp B/P (MAP) Pulse Ox O2 Delivery O2 Flow Rate FiO2 06/25/18 09:47 Nasal Cannula 2.0 06/25/18 09:42 Nasal Cannula 2.0 28 06/25/18 09:42 94 Nasal Cannula 2.0 28 06/25/18 09:42 90 20 Nasal Cannula 2.0 28 06/25/18 08:38 97.8 06/25/18 08:00 97.2 90 18 119/75 (90) 97 06/25/18 04:00 97.8 80 17 145/87 (106) 97 06/25/18 00:00 97.5 70 17 108/59 (75) 96 06/24/18 21:00 Nasal Cannula 2.0 06/24/18 20:25 Nasal Cannula 2.0 28 06/24/18 20:25 97 Nasal Cannula 2.0 28 06/24/18 20:24 74 20 97 Nasal Cannula 2.0 28 06/24/18 20:22 71 20 Nasal Cannula 2.0 28 06/24/18 20:20 74 20 Nasal Cannula 2.0 28 06/24/18 20:00 97.8 76 18 121/72 (88) 97 06/24/18 16:00 98.2 75 20 114/67 (83) 98 Intake and Output 06/24/18 06/25/18 19:00 07:00 Intake Total 1142.411 ml 275.000 ml Balance 1142.411 ml 275.000 ml Intake Oral 720 ml IV Total 422.411 ml 275.000 ml # Voids 7 3 General Appearance: WD/WN HEENT: atraumatic, anicteric Respiratory/Chest: normal breath sounds Cardiovascular: normal rate, regular rhythm Abdomen: normal bowel sounds, no organomegaly Genitourinary: normal external genitalia Skin: no rash, no ulcers Microbiology Date/Time Source Procedure Growth Status 06/22/18 19:25 Nose MRSA Culture - Final NO METHICILLIN RESISTANT STAPH AUREUS... Complete 06/22/18 19:25 Rectum VRE Culture - Final NO VANCOMYCIN RESISTANT ENTEROCOCCUS ... Complete 06/22/18 19:25 Rectum - Final NO CARBAPENEM-RESISTANT ENTEROBACTERI... Complete Laboratory Tests 06/25/18 05:55: White Blood Count 9.4, Red Blood Count 4.20L, Hemoglobin 15.0, Hematocrit 42.0, Mean Corpuscular Volume 100H, Mean Corpuscular Hemoglobin 35.8H, Mean Corpuscular Hemoglobin Concent 35.8, Red Cell Distribution Width 11.8, Platelet Count 223, Mean Platelet Volume 6.9, Neutrophils (%) (Auto) 71.5, Lymphocytes (% ) (Auto) 21.4, Monocytes (%) (Auto) 5.2, Eosinophils (%) (Auto) 1.2, Basophils ( %) (Auto) 0.7, Sodium Level 139, Potassium Level 4.0, Chloride Level 107, Carbon Dioxide Level 22, Anion Gap 10, Blood Urea Nitrogen 25H, Creatinine 0.9, Estimat Glomerular Filtration Rate > 60, Glucose Level 101, Calcium Level 8.6 06/25/18 10:50: Vancomycin Level Trough 6.9 Current Medications Medications (Trade) Dose Ordered Sig/Sharon Route PRN Reason Start Time Stop Time Status Last Admin Dose Admin Acetaminophen (Tylenol) 650 mg Q4H PRN ORAL fever 06/22/18 23:00 07/22/18 22:59 Al Hydroxide/Mg Hydroxide (Mylanta II) 30 ml Q6H PRN ORAL dyspepsia 06/22/18 23:00 07/22/18 22:59 Albuterol/ Ipratropium (Albuterol/ Ipratropium) 3 ml Q4H PRN HHN Shortness of Breath 06/24/18 20:05 2/12/19 20:04 06/24/18 20:18 Atorvastatin Calcium (Lipitor) 40 mg BEDTIME ORAL 06/23/18 21:00 07/23/18 20:59 06/24/18 20:08 Buspirone HCl (Buspar) 15 mg TWICE A DAY ORAL 06/23/18 09:00 07/23/18 08:59 06/25/18 08:01 Carbidopa/Levodopa (Sinemet 25/100) 1 tab THREE TIMES A DAY ORAL 06/23/18 09:00 07/23/18 08:59 06/25/18 12:18 Ceftriaxone Sodium 1 gm/ Dextrose 55 ml @ 110 mls/hr Q24H IVPB 06/24/18 11:00 07/01/18 10:59 06/25/18 11:11 Clonazepam (KlonoPIN) 1 mg BID ORAL 06/23/18 09:00 06/30/18 08:59 06/25/18 08:01 Dextrose (Dextrose 50%) STAT PRN IV Hypoglycemia 06/22/18 23:00 07/22/18 22:59 Escitalopram Oxalate (Lexapro) 10 mg DAILY ORAL 06/25/18 12:45 07/25/18 12:44 06/25/18 12:47 Finasteride (Proscar) 5 mg DAILY ORAL 06/23/18 09:00 07/23/18 08:59 06/25/18 08:00 Gabapentin (Neurontin) 600 mg THREE TIMES A DAY ORAL 06/23/18 09:00 07/23/18 08:59 06/25/18 12:18 Levetiracetam (Keppra) 250 mg TID ORAL 06/23/18 09:00 07/23/18 08:59 06/25/18 12:18 Lorazepam (Ativan 2mg/ml 1ml) 0.5 mg Q4H PRN IV For Anxiety 06/22/18 23:00 06/29/18 22:59 06/25/18 12:45 Mirtazapine (Remeron) 15 mg BEDTIME ORAL 06/23/18 21:00 07/23/18 20:59 06/24/18 20:08 Morphine Sulfate (Morphine Sulfate) 1 mg EVERY 4 HOURS PRN IVP For Pain 06/22/18 23:00 06/29/18 22:59 06/25/18 08:08 Ondansetron HCl (Zofran) 4 mg Q6H PRN IVP Nausea & Vomiting 06/22/18 23:00 07/22/18 22:59 Polyethylene Glycol (Miralax) 17 gm HSPRN PRN ORAL Constipation 06/22/18 23:00 07/22/18 22:59 Risperidone (RisperDAL) 1 mg BID ORAL 06/23/18 09:00 07/23/18 08:59 06/25/18 08:01 Tamsulosin HCl (Flomax) 0.4 mg BEDTIME ORAL 06/23/18 21:00 07/23/18 20:59 06/24/18 20:08 Vancomycin HCl (Vanco rx to dose) 1 ea DAILY PRN MISC Per rx protocol 06/24/18 09:45 07/24/18 09:44 Vancomycin HCl 1 gm/Dextrose 275 ml @ 183.708 mls/hr Q8H IVPB 06/24/18 20:00 06/25/18 14:00 06/25/18 12:18 Vancomycin HCl/ Dextrose 275 ml @ 137.5 mls/ hr Q6H IVPB 06/25/18 18:00 06/30/18 17:59 Zolpidem Tartrate (Ambien) 5 mg HSPRN PRN ORAL Insomnia 06/22/18 23:00 06/29/18 22:59 Patricio Strong MD Jun 25, 2018 13:53
[2018-06-25 16:00] VITALS: BP 128/77
--- NOTE | 2018-06-25 16:30 | NUR ---
LOG CUT OFF SAWYER NOTES PT ACCEPTED TO [facility], WAITING FOR BED ASSIGNMENT. WILL PLACE PT ON WILL CALL NURSE MADE AWARE. [facility] [phone]
--- NOTE | 2018-06-25 17:48 | NUR ---
NURSE NOTES: Called [facility] to follow up on bed assignment and spoke with nursing glazing department supervisor and was informed that they don't have bed assignment as of now but maybe tomorrow. Called Mary) but no response.
[2018-06-25] MEDS ORDERED: Vancomycin 1.5gm/D5W 275ml IVPB SCH (18:00)
[2018-06-25] MEDS ORDERED: Vancomycin 1250mg/D5W 275ml IVPB SCH (18:30)
--- NOTE | 2018-06-25 18:30 | Progress Note ---
DATE: 06/25/2018 SUBJECTIVE: This is a 43-year-old male patient with generalized weakness. The patient is complaining that he has problems with still depression, confusion, some disorganized thought process, and mood lability worsened by stress of his medical illness. That is why, he does require daily psychiatric consultation. MENTAL STATUS EXAMINATION: This is a 43-year-old male. Appearance is disheveled. Attitude, irritable and agitated. Affect, guarded and restricted. Intellect poor. Mood depressed and anxious. Motor activity, psychomotor agitation. Attention span is poor. Orientation x2. Speech is low volume and slurred. Thought process, disorganized and illogical. Thought content, auditory hallucinations and paranoid delusions. Insight and judgment is poor. DIAGNOSIS: Bipolar 2. PLAN: Treat him with Risperdal 1 mg twice a day, Remeron 15 at bedtime, Neurontin 250 mg 2 times a day, Klonopin 1 mg twice a day, BuSpar 15 twice a day, and Remeron 15 at bedtime. Provide him with 20 minutes of cognitive behavioral therapy to help him identify his automatic negative thoughts, help him to convert those negative thoughts to more positive thinking to reduce depression, anxiety, and suicidality. Chart reviewed. Discussed with staff. Seen and assessed at bedside. Wing Cervantes M.D. DR: ZHANNA JOB#: [id number] CC:
--- NOTE | 2018-06-25 19:21 | NUR ---
HAND-OFF: Report given to Cody(JORDY).
--- NOTE | 2018-06-25 20:01 | NUR ---
NURSE NOTES: Pt was awake and verbally abusive to myself and the DRESSER TENDER Cortez, he is refusing both of us as his nurses for the night, I informed the charge nurse Bobby and security was called to speak with the patient, bed in lowest position, SCDs on but pt removes them at will, he is very demanding, will continue to monitor.
--- NOTE | 2018-06-25 20:15 | NUR ---
NURSE NOTES: Pt stated that he did not want myself and the LOLLY Clement as his nurses as he was being verbally abusive, the charge nurse Bobby was aware of the situation. He stated he will leave the facility because he is not on a psych hold and we can't make him stay here. I explained that I would contact the doctor about him wanting to leave as he proceeded to sit at the side of the bed and prepare his wheelchair. I offered to help him into his wheelchair and to get help but he refused and got in the wheelchair by himself. I called security to the floor and left a voicemail for Dr. Cervantes. Security talked to the patient as he sat in his wheelchair in the hallway, he was being verbally abusive to them using inappropriate language and threatening. He called the police twice, they asked to speak to me and I explained the situation to them, with the last caller stating to let security handle it if the patient becomes more aggressive. During this I was able to give the patient his medication. While security was on the floor, the patient took his right arm and banged it on the door to his room about 3-4 times in anger. He finally stated that he would give us 2 options, to have security leave and he would calm down at this time I asked him to get into the bed first and he asked for help. We put him in bed and I asked security to leave and that I would call them if I needed help.
[2018-06-25] MEDS: Tamsulosin 0.4mg cap ORAL SCH (20:34)
[2018-06-25] MEDS: Atorvastatin 80mg tab ORAL SCH (20:34)
[2018-06-26] VITALS: BP 114/69
--- NOTE | 2018-06-26 00:29 | Emergency Room Report ---
History of Present Illness General Chief Complaint: General Complaint Source: Medical Record Present Illness HPI Patient is a 40-year-old male presented after increased generalized weakness and neck discomfort. Patient a prior history of thank you neurologic disease. Patient had previous history of chronic pain as well as seizure disorder. Patient been sent in from jail after increased neck discomfort and generalized body weakness. Patient denied recent seizures. History is limited by poor historian. Allergies: Coded Allergies: CHLORPROMAZINE (Verified Allergy, Unknown, 11/13/17) CHLORPROPAMIDE (Unverified Allergy, Unknown, 01/28/18) DIVALPROEX SODIUM (Verified Allergy, Unknown, 04/17/17) FISH CONTAINING PRODUCTS (Verified Allergy, Unknown, 06/20/17) FISH OIL (Unverified Allergy, Unknown, 01/28/18) Patient History Past Medical History: see triage record, seizures Reviewed Nursing Documentation: PMH: Agreed; PSxH: Agreed Nursing Documentation-PMH Hx Cardiac Problems: Yes Hx Hypertension: Yes Hx COPD: Yes Hx Cancer: Yes - BPH Hx Gastrointestinal Problems: Yes - GERD Hx Neurological Problems: Yes - parkinsons, muscle weakness,overactive bladder Hx Parkinson's Disease: Yes Hx Seizures: Yes Hx Epilepsy: Yes Hx Peripheral Neuropathy: Yes Hx Spinal Cord Injury: Yes Hx Head Trauma: Yes Hx Memory Loss: Yes Hx Dizziness: Yes Hx Syncope: Yes Hx Headaches: Yes Hx Weakness: Yes Review of Systems All Other Systems: limited - poor historian Physical Exam Vital Signs Date Time Temp Pulse Resp B/P (MAP) Pulse Ox O2 Delivery O2 Flow Rate FiO2 06/22/18 18:11 97.7 71 18 120/75 94 Room Air 06/22/18 21:21 2.0 06/24/18 20:20 28 Sp02 EP Interpretation: reviewed, normal General Appearance: normal inspection, no apparent distress, alert, Chronically Ill Head: atraumatic ENT: normal ENT inspection, hearing grossly normal, normal voice Neck: normal inspection, supple, no bony tend, limited range of motion Respiratory: normal inspection, lungs clear, normal breath sounds, no respiratory distress, no retraction, no wheezing Cardiovascular #1: regular rate, rhythm, no edema Gastrointestinal: normal inspection, normal bowel sounds, non tender, soft, no guarding, no hernia Genitourinary: no CVA tenderness Musculoskeletal: normal inspection, back normal, normal range of motion Neurologic: normal inspection, alert, responsive, speech normal, motor weakness Psychiatric: normal inspection, judgement/insight normal, mood/affect normal Skin: normal inspection, normal color, no rash Medical Decision Making Diagnostic Impression: Primary Impression: Generalized weakness Additional Impressions: Seizure disorder Neck pain Leukocytosis ER Course Patient presented for generalized weakness. Differential diagnosis included was not limited to anemia, urinary tract infection, electrolyte abnormality, hypothyroidism, myocardial infarction, myasthenia gravis, dehydration, among others. Because of complexity of patient's case laboratory testing and imaging studies were ordered. Patient was noted to have slightly elevated white blood count. Patient was started on IV fluids. Dr. Curtis Gavin was contacted for inpatient management. Laboratory Tests Test 06/24/18 07:57 06/25/18 05:55 06/25/18 10:50 White Blood Count 17.1 K/UL (4.8-10.8) H 9.4 K/UL (4.8-10.8) Red Blood Count 4.61 M/UL (4.70-6.10) L 4.20 M/UL (4.70-6.10) L Hemoglobin 16.3 G/DL (14.2-18.0) 15.0 G/DL (14.2-18.0) Hematocrit 46.2 % (42.0-52.0) 42.0 % (42.0-52.0) Mean Corpuscular Volume 100 FL (80-99) H 100 FL (80-99) H Mean Corpuscular Hemoglobin 35.5 PG (27.0-31.0) H 35.8 PG (27.0-31.0) H Mean Corpuscular Hemoglobin Concent 35.4 G/DL (32.0-36.0) 35.8 G/DL (32.0-36.0) Red Cell Distribution Width 11.8 % (11.6-14.8) 11.8 % (11.6-14.8) Platelet Count 240 K/UL (150-450) 223 K/UL (150-450) Mean Platelet Volume 7.2 FL (6.5-10.1) 6.9 FL (6.5-10.1) Neutrophils (%) (Auto) 83.7 % (45.0-75.0) H 71.5 % (45.0-75.0) Lymphocytes (%) (Auto) 10.8 % (20.0-45.0) L 21.4 % (20.0-45.0) Monocytes (%) (Auto) 4.3 % (1.0-10.0) 5.2 % (1.0-10.0) Eosinophils (%) (Auto) 0.6 % (0.0-3.0) 1.2 % (0.0-3.0) Basophils (%) (Auto) 0.5 % (0.0-2.0) 0.7 % (0.0-2.0) Sodium Level 140 MMOL/L (136-145) 139 MMOL/L (136-145) Potassium Level 3.6 MMOL/L (3.5-5.1) 4.0 MMOL/L (3.5-5.1) Chloride Level 106 MMOL/L (98-107) 107 MMOL/L (98-107) Carbon Dioxide Level 23 MMOL/L (21-32) 22 MMOL/L (21-32) Anion Gap 11 mmol/L (5-15) 10 mmol/L (5-15) Blood Urea Nitrogen 23 mg/dL (7-18) H 25 mg/dL (7-18) H Creatinine 1.1 MG/DL (0.55-1.30) 0.9 MG/DL (0.55-1.30) Estimate Glomerular Filtration Rate > 60 mL/min (>60) > 60 mL/min (>60) Glucose Level 148 MG/DL (74-106) H 101 MG/DL (74-106) Calcium Level 8.9 MG/DL (8.5-10.1) 8.6 MG/DL (8.5-10.1) Vancomycin Level Trough 6.9 ug/mL (5.0-12.0) Last Vital Signs Date Time Temp Pulse Resp B/P (MAP) Pulse Ox O2 Delivery O2 Flow Rate FiO2 06/26/18 00:00 98.6 78 18 114/69 (84) 96 06/25/18 21:00 Nasal Cannula 2.0 06/25/18 19:42 28 Status: unchanged Disposition: ADMITTED INPATIENT Condition: Serious Referrals: Curtis Gavin DO (PCP) Patient Instructions: Sepsis, Adult Yosef Smith MD Jun 26, 2018 00:29
[2018-06-26] MEDS: Vancomycin 1gm in Dextrose 275ml IVPB SCH ×2 (00:46→09:00)
--- NOTE | 2018-06-26 03:00 | Consultation ---
DATE OF CONSULTATION: 06/25/2018 NOTE: POOR AUDIO. PSYCHOTHERAPY CONSULTATION CONSULTING PHYSICIAN: Abdi Medley PsyD. TREATING ATTENDING PHYSICIAN: Curtis Gavin D.O. SUBJECTIVE: The patient is a 43-year-old male patient. [facility] He [facility] to hospital for generalized weakness. The patient had an extensive history of mental illness including bipolar disorder and the patient was irritable and . The patient states denies suicidal or homicidal ideations. argumentative with peers, staff, and other people . The patient is very agitated, irritable and demanding. He is very at times, very agitated and verbally abusive. behaviors, however, denies suicidal or homicidal of ideations. Denies any auditory or visual hallucinations. The patient does have an extensive . PAST MEDICAL HISTORY: neuropathy . ALLERGIES: The patient has allergies to chlorpromazine, . SUBSTANCE ABUSE HISTORY: The patient has a history of alcohol use and smoking cigarettes. PSYCHIATRIC HISTORY: The patient has a history of bipolar disorder. Denies history of . SOCIAL HISTORY: The patient is a 43-year-old . MENTAL STATUS EXAMINATION: The patient is alert and oriented to person, place, and time. Mood is irritable. Affect labile. Thought process disoriented. Though content . DIAGNOSES: Bipolar 1 disorder, mixed, severe, . PLAN: Assessed this patient, provided the patient with supportive psychotherapy approach, focused on . The patient states that he would like to better. behavioral therapy as well. and working on the patient's agitation, irritability and symptoms as well. Today, . This clinician has reviewed the patient's chart and discussed the treatment with treatment team. . Abdi Medley PsyD. DR: BROOK JOB#: [id number] CC:
[2018-06-26 04:00] VITALS: BP 111/66
[2018-06-26] MEDS: Morphine Sulfate 2mg/ml Inj IVP PRN (06:34)
--- NOTE | 2018-06-26 06:54 | NUR ---
NURSE NOTES: Left voicemail for Dr. Rendon, pt blood culture (1 bottle) positive for gram positive cocci in cluster.
[2018-06-26 07:02] LABS: ANION GAP 10 mmol/L (5-15); BLOOD UREA NITROGEN 19 mg/dL (7-18); CALCIUM 8.7 MG/DL (8.5-10.1); CARBON DIOXIDE 22 MMOL/L (21-32); CHLORIDE 110 MMOL/L (98-107); POTASSIUM 3.9 MMOL/L (3.5-5.1); SODIUM 142 MMOL/L (136-145)
[2018-06-26 07:13] LABS: BASOPHILS % (AUTO) 0.6 % (0.0-2.0); EOSINOPHILS % (AUTO) 1.7 % (0.0-3.0); HEMATOCRIT 40.8 % (42.0-52.0); HEMOGLOBIN 14.5 G/DL (14.2-18.0); LYMPHOCYTES % (AUTO) 23.5 % (20.0-45.0); MEAN CORPUSCULAR VOLUME 100 FL (80-99); MONOCYTES % (AUTO) 8.1 % (1.0-10.0); NEUTROPHILS % (AUTO) 66.1 % (45.0-75.0); PLATELET COUNT 218 K/UL (150-450); RED BLOOD COUNT 4.07 M/UL (4.70-6.10); RED CELL DISTRIBUTION WIDTH 11.3 % (11.6-14.8); WHITE BLOOD COUNT 7.4 K/UL (4.8-10.8)
[2018-06-26 08:00] VITALS: BP 143/76
[2018-06-26] MEDS: BusPIRone 5mg Tab ORAL SCH (08:41)
[2018-06-26] MEDS: Levodopa/Carbidopa 25/100 tab ORAL SCH ×2 (08:42→13:00)
[2018-06-26] MEDS: LORazepam Inj 2mg/ml 1ml IV PRN (08:42)
--- NOTE | 2018-06-26 10:22 | NUR ---
CASE MANAGEMENT: DCPNOTE UPON DISCHARGE PATIENT WILL TRANSFER TO [address] [place], [place] [id number] SKILLED ROOM [address] PATIENT IN AGREEMENT WITH TRANSFERRING TO THIS FACILITY TRANSPORTATION VIA [facility] [id number] ETA 12:15
[2018-06-26] MEDS ORDERED: Morphine Sulfate 4mg/ml Inj (IV/IM USE ONLY) IM PRN (11:00)
[2018-06-26] MEDS: cefTRIAXone 1 GM in D5W 55 ML IVPB SCH (11:00)
[2018-06-26] MEDS ORDERED: LORazepam 0.5mg tab ORAL PRN (11:00)
[2018-06-26 12:00] VITALS: BP 120/76
[2018-06-26] MEDS ORDERED: Tubing IV Secondary IV ONE (13:14)
--- NOTE | 2018-06-26 13:15 | NUR ---
NURSE NOTES: Patient discharged. ID band removed. IV removed and site covered. Personal belongings inventoried and sent with patient. Patient kept comfortable at all times and patient needs met.
--- NOTE | 2018-06-26 13:27 | Pulmonology Progress Note ---
Assessment/Plan Problems: (1) Sepsis (2) COPD (chronic obstructive pulmonary disease) (3) Recurrent falls (4) Psychiatric disorder (5) Seizure disorder (6) HTN (hypertension) (7) ETOH abuse Assessment/Plan doing better respiratory treatment titrate fio2 to sat of 92 monitor BP psych to follow dv prophylaxis check WBC in am pt/ot ok to dc to assisted Subjective ROS Limited/Unobtainable: No Constitutional: Reports: no symptoms HEENT: Repors: no symptoms Allergies: Coded Allergies: CHLORPROMAZINE (Verified Allergy, Unknown, 11/13/17) CHLORPROPAMIDE (Unverified Allergy, Unknown, 01/28/18) DIVALPROEX SODIUM (Verified Allergy, Unknown, 04/17/17) FISH CONTAINING PRODUCTS (Verified Allergy, Unknown, 06/20/17) FISH OIL (Unverified Allergy, Unknown, 01/28/18) Objective Last 24 Hour Vital Signs Date Time Temp Pulse Resp B/P (MAP) Pulse Ox O2 Delivery O2 Flow Rate FiO2 06/26/18 12:00 98.2 78 18 120/76 (91) 97 06/26/18 10:42 95 06/26/18 09:00 Nasal Cannula 2.0 06/26/18 08:00 96.6 83 18 143/76 (98) 06/26/18 04:00 98.5 73 18 111/66 (81) 96 06/26/18 00:00 98.6 78 18 114/69 (84) 96 06/25/18 21:00 Nasal Cannula 2.0 06/25/18 19:42 86 20 Nasal Cannula 2.0 28 06/25/18 19:42 97 Nasal Cannula 2.0 28 06/25/18 19:42 Nasal Cannula 2.0 28 06/25/18 16:00 97.7 72 18 128/77 (94) 98 06/25/18 15:34 97.7 Intake and Output 06/25/18 06/26/18 19:00 07:00 Intake Total 2530.000 ml 367.416 ml Output Total 1400 ml Balance 1130.000 ml 367.416 ml Intake Oral 2200 ml IV Total 330.000 ml 367.416 ml Output Urine Total 1400 ml # Voids 3 3 Objective General Appearance: WD/WN HEENT: normocephalic Respiratory/Chest: chest wall non-tender, lungs clear Cardiovascular: normal peripheral pulses, normal rate Abdomen: normal bowel sounds, soft, non tender Extremities: no cyanosis Skin: no rash Microbiology Date/Time Source Procedure Growth Status 06/24/18 11:05 Blood Blood Culture - Preliminary Gram Positive Cocci Resulted Laboratory Tests 06/26/18 05:30: White Blood Count 7.4, Red Blood Count 4.07L, Hemoglobin 14.5, Hematocrit 40.8L , Mean Corpuscular Volume 100H, Mean Corpuscular Hemoglobin 35.6H, Mean Corpuscular Hemoglobin Concent 35.5, Red Cell Distribution Width 11.3L, Platelet Count 218, Mean Platelet Volume 7.1, Neutrophils (%) (Auto) 66.1, Lymphocytes (%) (Auto) 23.5, Monocytes (%) (Auto) 8.1, Eosinophils (%) (Auto) 1.7, Basophils (%) (Auto) 0.6, Sodium Level 142, Potassium Level 3.9, Chloride Level 110H, Carbon Dioxide Level 22, Anion Gap 10, Blood Urea Nitrogen 19H, Creatinine 1.0, Estimat Glomerular Filtration Rate > 60, Glucose Level 96, Calcium Level 8.7 Current Medications Medications (Trade) Dose Ordered Sig/Sharon Route PRN Reason Start Time Stop Time Status Last Admin Dose Admin Acetaminophen (Tylenol) 650 mg Q4H PRN ORAL fever 06/22/18 23:00 07/22/18 22:59 Al Hydroxide/Mg Hydroxide (Mylanta II) 30 ml Q6H PRN ORAL dyspepsia 06/22/18 23:00 07/22/18 22:59 Albuterol/ Ipratropium (Albuterol/ Ipratropium) 3 ml Q4H PRN HHN Shortness of Breath 06/24/18 20:05 06/29/18 20:04 06/24/18 20:18 Atorvastatin Calcium (Lipitor) 40 mg BEDTIME ORAL 06/23/18 21:00 07/23/18 20:59 06/25/18 20:34 Buspirone HCl (Buspar) 15 mg TWICE A DAY ORAL 06/23/18 09:00 07/23/18 08:59 06/26/18 08:41 Carbidopa/Levodopa (Sinemet 25/100) 1 tab THREE TIMES A DAY ORAL 06/23/18 09:00 07/23/18 08:59 06/26/18 08:42 Ceftriaxone Sodium 1 gm/ Dextrose 55 ml @ 110 mls/hr Q24H IVPB 06/24/18 11:00 07/01/18 10:59 06/25/18 11:11 Clonazepam (KlonoPIN) 1 mg BID ORAL 06/23/18 09:00 06/30/18 08:59 06/26/18 08:42 Dextrose (Dextrose 50%) STAT PRN IV Hypoglycemia 06/22/18 23:00 07/22/18 22:59 Escitalopram Oxalate (Lexapro) 10 mg DAILY ORAL 06/25/18 12:45 07/25/18 12:44 06/26/18 08:41 Finasteride (Proscar) 5 mg DAILY ORAL 06/23/18 09:00 07/23/18 08:59 06/26/18 08:42 Gabapentin (Neurontin) 600 mg THREE TIMES A DAY ORAL 06/23/18 09:00 07/23/18 08:59 06/26/18 08:42 Levetiracetam (Keppra) 250 mg TID ORAL 06/23/18 09:00 07/23/18 08:59 06/26/18 08:42 Lorazepam (Ativan) 0.5 mg Q4H PRN ORAL For Anxiety 06/26/18 11:00 07/03/18 10:59 06/26/18 11:10 Mirtazapine (Remeron) 15 mg BEDTIME ORAL 06/23/18 21:00 07/23/18 20:59 06/25/18 20:34 Morphine Sulfate (Morphine Sulfate) 1 mg Q4H PRN IM For Pain 06/26/18 11:00 07/03/18 10:59 06/26/18 11:11 Ondansetron HCl (Zofran) 4 mg Q6H PRN IVP Nausea & Vomiting 06/22/18 23:00 07/22/18 22:59 Polyethylene Glycol (Miralax) 17 gm HSPRN PRN ORAL Constipation 06/22/18 23:00 07/22/18 22:59 Risperidone (RisperDAL) 1 mg BID ORAL 06/23/18 09:00 07/23/18 08:59 06/26/18 08:41 Tamsulosin HCl (Flomax) 0.4 mg BEDTIME ORAL 06/23/18 21:00 07/23/18 20:59 06/25/18 20:34 Vancomycin HCl (Vanco rx to dose) 1 ea DAILY PRN MISC Per rx protocol 06/24/18 09:45 07/24/18 09:44 Vancomycin HCl 1 gm/Dextrose 275 ml @ 183.708 mls/hr Q8H IVPB 06/26/18 01:00 07/01/18 00:59 06/26/18 00:46 Zolpidem Tartrate (Ambien) 5 mg HSPRN PRN ORAL Insomnia 06/22/18 23:00 06/29/18 22:59 Patricio Strong MD Jun 26, 2018 13:27
--- NOTE | 2018-06-26 13:30 | Progress Note ---
DATE: 06/26/2018 SUBJECTIVE: This is a 43-year-old male patient with generalized weakness, but this patient has a diagnosis of bipolar 2 disorder, extreme mood lability, agitation, worsened by stress of his medical illness. That is why, his attending has requested daily psychiatric consultation. MENTAL STATUS EXAMINATION: The patient is a 43-year-old male. Appearance is disheveled. Attitude, irritable and agitated. Affect, guarded and restricted. Intellect poor. Mood, depressed and anxious. Motor activity, psychomotor agitation. Attention span is poor. Orientation x2. Speech is pressured. Thought process, disorganized and illogical. Thought content, auditory hallucinations and paranoid delusions. Insight and judgment is poor. DIAGNOSIS: Bipolar 2. PLAN: Treat him with a medication regimen of BuSpar 15 twice a day, Klonopin 1 twice a day, Ativan 0.5 mg IV q.6 h. p.r.n. anxiety and agitation, Risperdal 1 mg twice a day, Remeron 15 at bedtime, Lexapro 10 daily, Neurontin mg three times a day. A 20 minutes of cognitive behavioral therapy provided to help him identify his automatic negative thoughts and help him to convert those negative thoughts to more positive thoughts to reduce depression, anxiety, and suicidality. Chart reviewed and discussed with staff. Seen and assessed in his room. Wing Cervantes M.D. DR: PABLO JOB#: [id number] CC:
--- NOTE | 2018-06-28 08:04 | Discharge Summary ---
Discharge Summary Discharge Summary _ DATE OF ADMISSION: 06/22/2018 DATE OF DISCHARGE: 06/26/2018 DISCHARGED BY: Dr Gavin REASON FOR ADMISSION: 43 years old male with past medical history of hypertension, COPD, BPH, GERD, advanced Parkinson disease, overactive bladder, depression, chronic pain, psychiatric disorder, presented to emergency department due to generalized weakness. Upon evaluation vital signs were stable. Laboratory workup revealed leukocytosis with WBC 17.1, stable hemoglobin and hematocrit , stable electrolytes , BUN 23 , creatinine 1.1, glucose [address] CT scan of the head revealed no mass effect, edema or acute bleeding. Mild sinusitis noted. Chest x-ray revealed no evidence of acute cardiopulmonary pathology. Urinalysis revealed no evidence of UTI. Patient was started on the IV fluids and was admitted for further management . CONSULTANTS: pulmonary Dr. Strong ID specialist Dr. Marrero psychiatrist Dr. Cervantes [facility]: Patient admitted and started on IV fluid. Patient was pancultured and started on empiric antibiotic. ID specialist, therapist and psychiatrist followed. Venous duplex bilateral lower extremity revealed no evidence of acute DVT. Supplemental oxygen provided as needed to keep pulse oximetry above 92%. Pulmonary toilet provided as needed. Pulse oximetry was stable on oxygen 2 L via nasal cannula. Initial blood culture revealed Staph aureus /, repeated blood culture were preliminary negative. Urinalysis revealed no evidence of UTI , chest x-ray revealed no acute cardiopulmonary pathology. Patient remained afebrile. Leukocytosis resolved. Renal parameters and electrolytes were closely monitor. Electrolytes corrected as needed. Prior to discharge BUN 19 , creatinine 1.0. TSH was within normal limits. Lipid panel was stable. Statin was continued. Patient was working with physical therapist. Fall precaution maintained. Sinemet was continued. Seizure precaution maintained. Keppra continued. No evidence of seizure activity while in the hospital. Bowel regimen instituted. Psychiatrist followed. Patient was diagnosed with bipolar type II. Pain management was addressed as needed, and pain was controlled. Flomax and Proscar were continued. Psychiatric medication regimen was optimized by psychiatry. Cognitive behavioral therapy provided. Leukocytosis resolved. Patient was subsequently [facility] for further management. FINAL DIAGNOSES: Leukocytosis-resolved COPD Seizure disorder Hypertension Recurrent falls Advanced Parkinsonism/wheelchair bound Hypertension Bipolar type2 Chronic pain History of ETOH abuse DISCHARGE MEDICATIONS: See Medication Reconciliation list. DISCHARGE INSTRUCTIONS: Patient was discharged to long-term acute care facility/[facility]. Follow-up with medical doctor at the facility. I have been assigned to dictate discharge summary for this account. I was not involved in the patient's management. Ana Hernández NP Jun 28, 2018 08:04
== END 2018-06-26 13:15 | DRG 815 ==
LOC: EDBD 18:16 → EMR 18:57 → 4E 19:00 → EDBEDREQ 20:57 → 4E 06-23 03:01
DX: D72.829 Elevated white blood cell count, unspecified (principal); F31.81 Bipolar II disorder; R53.1 Weakness; G20 Parkinson's disease; G89.4 Chronic pain syndrome; J32.9 Chronic sinusitis, unspecified; G40.909 Epilepsy, unspecified, not intractable, without status epilepticus; I10 Essential (primary) hypertension; Z66 Do not resuscitate; J44.9 Chronic obstructive pulmonary disease, unspecified; Z72.0 Tobacco use; F10.11 Alcohol abuse, in remission; K21.9 Gastro-esophageal reflux disease without esophagitis; Z91.81 History of falling; F41.9 Anxiety disorder, unspecified; Z99.3 Dependence on wheelchair
CPT/HCPCS: 36415; 70450; 71045; 80048; 80053; 80061; 80202; 80299; 81001; 84443; 84484; 85025; 87040; 87081; 87181; 93970; 94640; 94664; 94760; 99285; J7620

== ENCOUNTER 2018-10-25 23:36 | Emergency (ER) | payer MEDICARE, OTHER ==
[~2018-10-25] VITALS: Ht 167.6 cm; Wt 63.5 kg
[~2018-10-25 23:36] MED LIST changes: +ACETAMINOPHEN-1 EAC1 ORAL; +ALBUTEROL2.5 MG/3 M INH; +AMBIEN5 MG ORAL; +BENZTROPINE ME0.5 MG PO; +BUSPIRONE HCL15 MG ORAL; +CEPHALEXIN500 MG ORAL; +CLOBETASOL PROP15 G1 TP; +DOCUSATE SODIU100 MG ORAL; +DULERA 200 MCG/13 GM IH; +DUONEB 0.5-3(2.53 ML HHN; +FOLIC ACID0.4 MG ORAL; +KLONOPIN1 MG ORAL; +LEXAPRO10 MG ORAL; +LIPITOR80 MG ORAL; +MAPAP160 MG/51 PO; +MAPAP480 MG/15 PO; +MEGESTROL400 MG/11 PO; +MELATONIN 3 MG1 EAC1 PO; +MIRTAZAPINE15 M3 ORAL; +NAPROXEN250 MG ORAL; +PROSCAR5 MG ORAL; +RISPERDAL1 MG PO; +SENNA8.6 M2 PO; +SINEMET 25-1001 EAC1 ORAL; +VITAMIN B-12100 MCG ORAL; +VITAMIN B-121000 MCG PO; +VITAMIN D1000 UNI1 ORAL
--- NOTE | 2018-10-26 | NUR ---
ED Nurse Note: Recieved pt biba from snf with c/ chest pain for past 3 hours, pt states its intermittent at 8/10, pt immediately placed on cardiac monitoring and has patent iv line, labs drawn and sent, will resume care as ordered and closely monitor, no sob or labored breathing.
[2018-10-26] MEDS ORDERED: LORAZEPAM1 MG ORAL (00:01)
[2018-10-26] MEDS ORDERED: BENZTROPINE ME0.5 MG PO (00:01)
[2018-10-26] MEDS ORDERED: AMLODIPINE BESYL5 MG ORAL (00:01)
[2018-10-26 00:23] LABS: BASOPHILS % (AUTO) 1.1 % (0.0-2.0); EOSINOPHILS % (AUTO) 3.5 % (0.0-3.0); HEMATOCRIT 39.3 % (42.0-52.0); HEMOGLOBIN 14.4 G/DL (14.2-18.0); LYMPHOCYTES % (AUTO) 31.3 % (20.0-45.0); MEAN CORPUSCULAR VOLUME 93 FL (80-99); MONOCYTES % (AUTO) 6.4 % (1.0-10.0); NEUTROPHILS % (AUTO) 57.6 % (45.0-75.0); PLATELET COUNT 244 K/UL (150-450); RED BLOOD COUNT 4.24 M/UL (4.70-6.10); WHITE BLOOD COUNT 8.7 K/UL (4.8-10.8)
[2018-10-26 00:34] LABS: ANION GAP 10 mmol/L (5-15); BLOOD UREA NITROGEN 16 mg/dL (7-18); CARBON DIOXIDE 24 MMOL/L (21-32); CHLORIDE 109 MMOL/L (98-107); CREATININE 0.8 MG/DL (0.55-1.30); POTASSIUM 3.9 MMOL/L (3.5-5.1); SODIUM 142 MMOL/L (136-145)
--- NOTE | 2018-10-26 00:45 | Emergency Room Report ---
History of Present Illness General Chief Complaint: Chest Pain Source: Patient, Medical Record, EMS Present Illness HPI 43-year-old male with psychiatric history and chronic pain. He presents with chief complaint of chest pain. He said pain been going on for a while. Also complaining of twitching to his lower extremity. No fever chills. Unable to give a number to his pain scale. No nausea no vomiting. No fever chills. Denies any other complaint. Allergies: Coded Allergies: CHLORPROMAZINE (Verified Allergy, Unknown, 11/13/17) CHLORPROPAMIDE (Unverified Allergy, Unknown, 01/28/18) DIVALPROEX SODIUM (Verified Allergy, Unknown, 04/17/17) FISH CONTAINING PRODUCTS (Verified Allergy, Unknown, 06/20/17) FISH OIL (Unverified Allergy, Unknown, 01/28/18) Patient History Past Medical History: see triage record, old chart reviewed, psych hx Past Surgical History: other Pertinent Family History: none Social History: Denies: smoking Immunizations: other Reviewed Nursing Documentation: PMH: Agreed; PSxH: Agreed Nursing Documentation-PMH Past Medical History: No History, Except For Hx Cardiac Problems: Yes Hx Hypertension: Yes Hx COPD: Yes Hx Cancer: Yes - BPH Hx Gastrointestinal Problems: Yes - GERD Hx Neurological Problems: Yes - parkinsons, muscle weakness,overactive bladder Hx Cerebrovascular Accident: Yes - right sided weakness Hx Parkinson's Disease: Yes Hx Seizures: Yes Hx Epilepsy: Yes Hx Peripheral Neuropathy: Yes Hx Spinal Cord Injury: Yes Hx Head Trauma: Yes Hx Memory Loss: Yes Hx Dizziness: Yes Hx Syncope: Yes Hx Headaches: Yes Hx Weakness: Yes Review of Systems Eye: Denies: eye pain, blurred vision ENT: Denies: ear pain, nose congestion, throat swelling Respiratory: Denies: cough, shortness of breath Cardiovascular: Reports: chest pain; Denies: palpitations Gastrointestinal: Denies: abdominal pain, diarrhea, nausea, vomiting Musculoskeletal: Denies: back pain, joint pain Skin: Denies: rash Neurological: Denies: headache, numbness Endocrine: Denies: increased thirst, increased urine Hematologic/Lymphatic: Denies: easy bruising All Other Systems: negative except mentioned in HPI Physical Exam Vital Signs Date Time Temp Pulse Resp B/P (MAP) Pulse Ox O2 Delivery O2 Flow Rate FiO2 10/25/18 23:39 98.8 98 18 126/74 (91) 100 Room Air Vitals normal Sp02 EP Interpretation: reviewed, normal General Appearance: well appearing, no apparent distress, alert Head: normocephalic, atraumatic Eyes: bilateral eye PERRL, bilateral eye EOMI ENT: hearing grossly normal, normal pharynx Neck: full range of motion, supple, no meningismus Respiratory: chest non-tender, lungs clear, normal breath sounds Cardiovascular #1: regular rate, rhythm, no murmur Gastrointestinal: normal bowel sounds, non tender, no mass, no organomegaly, no bruit, non-distended Musculoskeletal: back normal Neurologic: alert, oriented x3 Psychiatric: mood/affect normal Skin: warm/dry Medical Decision Making Diagnostic Impression: Primary Impression: Chest pain Qualified Codes: R07.9 - Chest pain, unspecified ER Course Patient presents with atypical chest pain. No evidence of ACS, PE, dissection to name a few. EKG normal. Troponin negative. Will discharge back to care home. EKG Diagnostic Results Rate: normal Rhythm: NSR ST Segments: no acute changes Rhythm Strip Diag. Results EP Interpretation: yes Rate: 85 Rhythm: NSR, no PVC's, no ectopy Chest X-Ray Diagnostic Results Chest X-Ray Diagnostic Results : Chest X-Ray Ordered: Yes # of Views/Limited/Complete: 1 View Indication: Chest Pain EP Interpretation: Yes Interpretation: no consolidation, no effusion, no pneumothorax, no acute cardiopulmonary disease Impression: No acute disease Electronically Signed by: Willi Candelario mD Last Vital Signs Date Time Temp Pulse Resp B/P (MAP) Pulse Ox O2 Delivery O2 Flow Rate FiO2 10/25/18 23:39 98.8 98 18 126/74 (91) 100 Room Air Status: improved Disposition: XFER SNF Condition: Stable Referrals: Curtis Gavin DO (PCP) Patient Instructions: Nonspecific Chest Pain Additional Instructions: Follow-up with your Dr. in 7 days. Return if worse. Willi Candelario MD Oct 26, 2018 00:45
[2018-10-26 00:48] LABS: ALANINE AMINOTRANSFERASE 23 U/L (12-78); ALBUMIN 4.3 G/DL (3.4-5.0); ALBUMIN/GLOBULIN RATIO 1.7 (1.0-2.7); ALKALINE PHOSPHATASE 57 U/L (46-116); ASPARTATE AMINO TRANSFERASE 12 U/L (15-37); BILIRUBIN,TOTAL 0.2 MG/DL (0.2-1.0); CKMB 0.7 NG/ML (0.0-3.6); CREATINE KINASE 68 U/L (26-308)
[2018-10-26 01:00] VITALS: BP 119/85
--- NOTE | 2018-10-26 02:20 | NUR ---
ED Nurse Note: pt beng d/c back to facility, report called to Bala Dominguez at [phone], s/w mercedes gustafson and gave report of pt d/c instructions and pt returning, have ambulance eta of 0330, pt resting uietly inb ed,d enies pain, tp cleaned and chagned due to incontinence, nadnoted will continue to monitor while waiting for transport for disposition.
[2018-10-26 04:10] VITALS: BP 121/73
[2018-10-26 04:19] VITALS: BP 121/73
--- NOTE | 2018-10-26 04:20 | NUR ---
ED Nurse Note: [facility] ambulance has arrived for pt transport, rig#[id number], report and all d/c papers given to local [employer] truck driver rogelio, pt is awake, alert and oriented x 4, deneis cp or any pain, saline lock removed without complications, pt has all belongings, pt transported via gurney with ambulance drivers, nad noted during pt d/c back to [facility].
--- NOTE | 2018-10-26 11:32 | Diagnostic Imaging Report ---
Indication: Chest pain Comparison: 06/22/2018 A single view chest radiograph was obtained. Findings: Cardiomediastinal appearance is within normal limits for age. The lungs are clear. Pulmonary vascularity is appropriate. The diaphragmatic contour is smooth and costophrenic angles are sharp. No pleural effusions are identified. The bones are unremarkable. Impression: No acute findings
--- NOTE | 2018-10-26 14:59 | Cardiology Report ---
APPROVED REPORT EKG Measurement Heart [id number] FL [id number] Sinus rhythm with occasional premature ventricular complexes and fusion complexes Otherwise normal ECG
== END 2018-10-26 04:22 ==
LOC: EDBD 23:36 → EMR 23:54
DX: R07.9 Chest pain, unspecified (principal); Z88.8 Allergy status to other drugs, medicaments and biological substances; Z91.013 Allergy to seafood; I10 Essential (primary) hypertension; K21.9 Gastro-esophageal reflux disease without esophagitis; J44.9 Chronic obstructive pulmonary disease, unspecified; G20 Parkinson's disease; G81.91 Hemiplegia, unspecified affecting right dominant side; G40.909 Epilepsy, unspecified, not intractable, without status epilepticus; G62.9 Polyneuropathy, unspecified
CPT/HCPCS: 36415; 71045; 80053; 82550; 82553; 84484; 85025; 93005; 99283

== ENCOUNTER 2019-01-30 21:58 | Inpatient (IN) | payer MEDICARE, OTHER ==
[~2019-01-30] VITALS: Ht 180.3 cm; Wt 77.2 kg
[~2019-01-30 21:58] MED LIST changes: +AMLODIPINE BESYL5 MG ORAL; +LORAZEPAM1 MG ORAL
[2019-01-30 22:00] VITALS: BP 124/78
--- NOTE | 2019-01-30 22:00 | NUR ---
ED Nurse Note: Patient [facility] c/o seizures from [place], staff lalo at the facility states that the patient had "multiple" seizures lating about 20 seconds each. pt is aox4, on 4 L nasal cannula. pt is calm cooperative.
--- NOTE | 2019-01-30 22:00 | NUR ---
Note rosanne in EDM - 01/30/19 at 2237 by PRISCILLA ED Nurse Note: ermd at bedside. pt states the typically wears a c collar at the rehab home. per ermd place c- collar on pt.
[2019-01-30] MEDS ORDERED: LEVETIRACE100 MG/1 M GT (22:19)
[2019-01-30] MEDS ORDERED: levETIRAcetam 500 MG in D5W 110 ML IV ONE (22:30)
--- NOTE | 2019-01-30 22:30 | NUR ---
ED Nurse Note: ermd at bedside. pt states the typically wears a c collar at the rehab home. per ermd place c- collar on pt.
[2019-01-30 22:46] LABS: BASOPHILS % (AUTO) 1.5 % (0.0-2.0); EOSINOPHILS % (AUTO) 4.3 % (0.0-3.0); HEMATOCRIT 41.8 % (42.0-52.0); HEMOGLOBIN 14.8 G/DL (14.2-18.0); LYMPHOCYTES % (AUTO) 36.8 % (20.0-45.0); MEAN CORPUSCULAR VOLUME 97 FL (80-99); MONOCYTES % (AUTO) 5.7 % (1.0-10.0); NEUTROPHILS % (AUTO) 51.7 % (45.0-75.0); PLATELET COUNT 228 K/UL (150-450); RED BLOOD COUNT 4.33 M/UL (4.70-6.10); RED CELL DISTRIBUTION WIDTH 10.4 % (11.6-14.8); WHITE BLOOD COUNT 6.4 K/UL (4.8-10.8)
[2019-01-30 22:54] LABS: ANION GAP 8 mmol/L (5-15); BLOOD UREA NITROGEN 8 mg/dL (7-18); CALCIUM 9.2 MG/DL (8.5-10.1); CARBON DIOXIDE 27 MMOL/L (21-32); CHLORIDE 108 MMOL/L (98-107); CREATININE 0.9 MG/DL (0.55-1.30); POTASSIUM 3.9 MMOL/L (3.5-5.1); SODIUM 143 MMOL/L (136-145)
[2019-01-30 23:00] LABS: ALANINE AMINOTRANSFERASE 10 U/L (12-78); ALBUMIN 3.7 G/DL (3.4-5.0); ALBUMIN/GLOBULIN RATIO 1.2 (1.0-2.7); ALKALINE PHOSPHATASE 73 U/L (46-116); ASPARTATE AMINO TRANSFERASE 17 U/L (15-37); BILIRUBIN,TOTAL 0.3 MG/DL (0.2-1.0)
--- NOTE | 2019-01-30 23:22 | NUR ---
ED Nurse Note: pt left for CT
--- NOTE | 2019-01-30 23:37 | NUR ---
ED Nurse Note: pt returned from CT
[2019-01-31] VITALS (7 sets, daily range): BP systolic 103–123; BP diastolic 58–77
--- NOTE | 2019-01-31 00:01 | Diagnostic Imaging Report ---
Indication: Seizure Technique: Contiguous 5 mm thick transaxial imaging of the head obtained in a Siemens Sensation [address] scanner. Soft tissue and bone windows generated. Automatic Exposure Control was utilized. Total Dose length Product (DLP): 1435.[address] Dose Index Volume (CTDIvol): 70.38 mGy Comparison: 06/22/2018 Findings: The size and configuration of the cortical sulci, basal cisterns, and ventricles are within normal limits for age. There is no mass effect, midline shift, or edema identified. There is no evidence of acute hemorrhage or abnormal intra-axial or extra-axial fluid collections. The bones and soft tissues are unremarkable. There is mucosal thickening within the ethmoid sinus. Impression: No mass effect, edema or acute bleed. Ethmoid sinusitis [facility] has communicated the preliminary results to the Emergency Department. Their findings are largely concordant with this report. The CT scanner at [facility] is accredited by the [employer] and the scans are performed using dose optimization techniques as appropriate to a performed exam including Automatic Exposure control.
--- NOTE | 2019-01-31 00:23 | NUR ---
ED Nurse Note: pt is quietly asleep in bed. pt was able to tolerate blake catheter insertions. blake, draining and patent. pt was given his blanket and lights were dimmed to increase comfort measures
--- NOTE | 2019-01-31 00:29 | Emergency Room Report ---
History of Present Illness General Chief Complaint: Seizure Source: Patient, Medical Record Present Illness HPI 43-year-old male presents ED for evaluation. Brought in by EMS status post seizure. Coming from custodial facility. Has had multiple seizures today witnessed by nursing staff. History of seizures. States he feels better at this time. Denies any headache. Denies any fevers or chills. Denies nausea or vomiting. States that over the last few weeks his seizures have been more frequent. States he has been compliant with his medications. No other aggravating relieving factors. Denies any other associated symptoms Allergies: Coded Allergies: CHLORPROMAZINE (Verified Allergy, Unknown, 11/13/17) CHLORPROPAMIDE (Unverified Allergy, Unknown, 01/28/18) DIVALPROEX SODIUM (Verified Allergy, Unknown, 04/17/17) FISH CONTAINING PRODUCTS (Verified Allergy, Unknown, 06/20/17) FISH OIL (Unverified Allergy, Unknown, 01/28/18) Patient History Past Medical History: HTN, COPD, GERD, CVA/TIA, seizures Pertinent Family History: none Social History: Denies: smoking, alcohol use, drug use Immunizations: UTD Reviewed Nursing Documentation: PMH: Agreed; PSxH: Agreed Nursing Documentation-PMH Past Medical History: No History, Except For Hx Cardiac Problems: Yes Hx Hypertension: Yes Hx COPD: Yes Hx Cancer: Yes - BPH Hx Gastrointestinal Problems: Yes - GERD Hx Neurological Problems: Yes - parkinsons, muscle weakness,overactive bladder Hx Cerebrovascular Accident: Yes - right sided weakness Hx Parkinson's Disease: Yes Hx Seizures: Yes Hx Epilepsy: Yes Hx Peripheral Neuropathy: Yes Hx Spinal Cord Injury: Yes Hx Head Trauma: Yes Hx Memory Loss: Yes Hx Dizziness: Yes Hx Syncope: Yes Hx Headaches: Yes Hx Weakness: Yes Review of Systems All Other Systems: negative except mentioned in HPI Physical Exam Vital Signs Date Time Temp Pulse Resp B/P (MAP) Pulse Ox O2 Delivery O2 Flow Rate FiO2 01/30/19 21:58 98.2 93 18 124/78 (93) 94 Room Air Sp02 EP Interpretation: reviewed, normal General Appearance: no apparent distress, alert, GCS 15, non-toxic Head: normocephalic Eyes: bilateral eye normal inspection, bilateral eye PERRL ENT: normal ENT inspection Neck: normal inspection Respiratory: chest non-tender, lungs clear, normal breath sounds, speaking full sentences Cardiovascular #1: regular rate, rhythm, no edema Gastrointestinal: normal bowel sounds, non tender, soft, non-distended, no guarding, no rebound Rectal: deferred Genitourinary: no CVA tenderness Musculoskeletal: back normal Neurologic: alert, oriented x3, responsive, speech normal Psychiatric: normal inspection Skin: other - see nursing notes Lymphatic: normal inspection Medical Decision Making Diagnostic Impression: Primary Impression: Seizure Additional Impression: Psychiatric disorder ER Course Hospital Course 43-year-old M presents to ED status post seizure. Differential diagnosis includes- breakthrough seizure, alcohol abuse, noncompliance with medication Clinical course Patient placed on stretcher. Initial history and physical I ordered labs, IV fluids, CT brain Labs-electrolytes okay, no leukocytosis noted, hemoglobin/hematocrit stable. EKG - NSR, no acute ischemic changes interpreted by me CT Brain ok Given loading dose of Keppra. Given increased frequency of seizure despite medication compliance I believe patient should be admitted. Case discussed with Dr. Gavin and he agreed to accept the patient to his service for further care and support. i. I feel this is a highly complex case requiring extensive working including EKG/Rhythm strip, Xray/CT/US, Blood/urine lab work, repeat exams while in ED, and administration of strong opiates/narcotics for pain control, admission to hospital or close patient follow up. Diagnosis - seizure, psyhciatric disorder admitted to telemetry in serious condition Labs Test 01/30/19 22:06 01/30/19 23:50 White Blood Count 6.4 K/UL (4.8-10.8) Red Blood Count 4.33 M/UL (4.70-6.10) Hemoglobin 14.8 G/DL (14.2-18.0) Hematocrit 41.8 % (42.0-52.0) Mean Corpuscular Volume 97 FL (80-99) Mean Corpuscular Hemoglobin 34.2 PG (27.0-31.0) Mean Corpuscular Hemoglobin Concent 35.4 G/DL (32.0-36.0) Red Cell Distribution Width 10.4 % (11.6-14.8) Platelet Count 228 K/UL (150-450) Mean Platelet Volume 7.5 FL (6.5-10.1) Neutrophils (%) (Auto) 51.7 % (45.0-75.0) Lymphocytes (%) (Auto) 36.8 % (20.0-45.0) Monocytes (%) (Auto) 5.7 % (1.0-10.0) Eosinophils (%) (Auto) 4.3 % (0.0-3.0) Basophils (%) (Auto) 1.5 % (0.0-2.0) Sodium Level 143 MMOL/L (136-145) Potassium Level 3.9 MMOL/L (3.5-5.1) Chloride Level 108 MMOL/L (98-107) Carbon Dioxide Level 27 MMOL/L (21-32) Anion Gap 8 mmol/L (5-15) Blood Urea Nitrogen 8 mg/dL (7-18) Creatinine 0.9 MG/DL (0.55-1.30) Estimat Glomerular Filtration Rate > 60 mL/min (>60) Glucose Level 104 MG/DL (74-106) Calcium Level 9.2 MG/DL (8.5-10.1) Total Bilirubin 0.3 MG/DL (0.2-1.0) Aspartate Amino Transf (AST/SGOT) 17 U/L (15-37) Alanine Aminotransferase (ALT/SGPT) 10 U/L (12-78) Alkaline Phosphatase 73 U/L (46-116) Total Protein 6.7 G/DL (6.4-8.2) Albumin 3.7 G/DL (3.4-5.0) Globulin 3.0 g/dL Albumin/Globulin Ratio 1.2 (1.0-2.7) Salicylates Level 5.6 ug/mL (2.8-20) Acetaminophen Level < 2 MCG/ML (10-30) Serum Alcohol < 3 mg/dL EKG Diagnostic Results Rate: normal Rhythm: NSR ST Segments: no acute changes ASA given to the pt in ED: No Rhythm Strip Diag. Results EP Interpretation: yes Rhythm: NSR, no PVC's, no ectopy CT/MRI/US Diagnostic Results CT/MRI/US Diagnostic Results : Imaging Test Ordered: CT Head Impression no acute process Last Vital Signs Date Time Temp Pulse Resp B/P (MAP) Pulse Ox O2 Delivery O2 Flow Rate FiO2 01/31/19 00:19 98.4 76 14 112/73 96 Room Air Status: improved Disposition: ADMITTED INPATIENT Condition: Serious Referrals: NON PHYSICIAN (PCP) Lincoln Rizvi MD Jan 31, 2019 00:29
[2019-01-31 00:31] LABS: APPEARANCE,URINE CLEAR; BILIRUBIN, URINE NEGATIVE (NEGATIVE); COLOR,URINE PALE YELLOW; GLUCOSE, URINE (UA) NEGATIVE (NEGATIVE); KETONES,URINE NEGATIVE (NEGATIVE); LEUKOCYTE ESTERASE ,URINE NEGATIVE (NEGATIVE); NITRITE,URINE NEGATIVE (NEGATIVE); PH,URINE 6.5 (4.5-8.0); PROTEIN,URINE NEGATIVE (NEGATIVE); UROBILINOGEN,URINE NORMAL MG/DL (0.0-1.0)
--- NOTE | 2019-01-31 01:25 | NUR ---
TRANSFER TO FLOOR: Patient transferred to as ordered, per ERMD. Report given to JORDY Carrasco. Belongings givent to patient.
--- NOTE | 2019-01-31 01:30 | NUR ---
NURSE NOTES: received pt from ED Ginette SPENCE.,pt is awake and AOx4 with drowsiness. V/S: BP 104/65 HR79 HR 79 T 97.5 and pt is on 2L of NC O2sat is 96%. pt is awake, abusable, no SOB and no Respiratory distress noted. checked pt's belongings that is signed by the pt. side rails x2 padded with seizure precautions. IV Left Hand 20G is intact, clean, and patent. alarm security or surveillance monitor is on, that indicates SR at this moment. pt states " i want to sleep more." bed is locked, alarmed, and lowest position. will continue to monitor pt with plan of care. call light within reach.
--- NOTE | 2019-01-31 02:02 | NUR ---
NURSE NOTES: left message to Dr. Gavin regarding admitting orders. waiting for call back.
[2019-01-31] MEDS ORDERED: SPIRIVA18 MCG INH (03:28)
[2019-01-31] MEDS ORDERED: FOLIC ACID1 MG ORAL (03:28)
[2019-01-31] MEDS ORDERED: ZOFRAN 4 MG4 MG/2 ML IM (03:28)
[2019-01-31] MEDS ORDERED: FINASTERIDE5 MG ORAL (03:28)
[2019-01-31] MEDS ORDERED: ACETAMINOPHEN325 M1 ORAL (03:28)
[2019-01-31] MEDS ORDERED: PHENERGAN SUPP25 MG PO (03:28)
[2019-01-31] MEDS ORDERED: BUSPIRONE HCL15 MG ORAL (03:28)
[2019-01-31] MEDS ORDERED: HYDROXYZINE HCL50 M1 PO (03:28)
[2019-01-31] MEDS ORDERED: FERROUS SULFAT325 MG ORAL (03:28)
[2019-01-31] MEDS ORDERED: ATORVASTATIN CA20 MG ORAL (03:28)
[2019-01-31] MEDS ORDERED: OLANZAPINE10 MG ORAL (03:28)
[2019-01-31] MEDS ORDERED: TRAZODONE HCL150 MG ORAL (03:28)
[2019-01-31] MEDS ORDERED: BISACODYL10 M1 RC (03:28)
[2019-01-31] MEDS ORDERED: IBUPROFEN400 M1 PO (03:28)
[2019-01-31] MEDS ORDERED: ASPIR 8181 MG ORAL (03:28)
[2019-01-31] MEDS ORDERED: DOCUSATE SODIU100 MG ORAL ×2 (03:28→03:38)
[2019-01-31] MEDS ORDERED: NORCO 10-325 T1 EACH ORAL (03:28)
[2019-01-31] MEDS ORDERED: BACLOFEN10 MG ORAL (03:28)
[2019-01-31] MEDS ORDERED: BUSPIRONE HCL5 M2 ORAL (03:28)
[2019-01-31] MEDS ORDERED: QUETIAPINE FUM300 MG ORAL (03:28)
[2019-01-31] MEDS ORDERED: OMEPRAZOLE40 M1 ORAL (03:28)
[2019-01-31] MEDS ORDERED: PRAZOSIN HCL2 MG PO (03:28)
[2019-01-31] MEDS ORDERED: MECLIZINE HCL25 MG ORAL (03:28)
[2019-01-31] MEDS ORDERED: GABAPENTIN600 MG ORAL (03:28)
[2019-01-31] MEDS ORDERED: FLEET ENEMA133 ML RECTAL (03:38)
[2019-01-31] MEDS ORDERED: DIPHENHYDRAMINE25 M1 ORAL (03:38)
[2019-01-31] MEDS ORDERED: PROVENTIL HFA6.7 G1 IH (03:38)
[2019-01-31] MEDS ORDERED: LEVETIRACE100 MG/1 M PO (03:38)
--- NOTE | 2019-01-31 04:11 | NUR ---
NURSE NOTES: left message to Dr. Gavin to get admitting orders. waiting for call back.
--- NOTE | 2019-01-31 04:13 | NUR ---
NURSE NOTES: left message to Dr. Strong for admitting orders. will wait for call back.
--- NOTE | 2019-01-31 06:27 | NUR ---
HAND-OFF: Report given to Payal SPENCE., pt is sleeping and resting on the Bed, stable and abusable easily. no SOB, no Respiratory Distress noted at this moment. pt has been Sinus rhythm till now. skin intact, call light within reach. IV site intact, patent, and clean.
--- NOTE | 2019-01-31 06:30 | NUR ---
NURSE NOTES: Received pt from JORDY Carrasco. Pt asleep. No orders have been input. Will call and leave a message with Dr. Gavin and Dr. Strong. Bed in lowest position. Call light within reach. Will continue to monitor.
--- NOTE | 2019-01-31 06:50 | NUR ---
NURSE NOTES: Called and left a message with Dr. Strong. Awaiting call back.
[2019-01-31] MEDS ORDERED: Meclizine 25mg tab ORAL PRN (07:15)
[2019-01-31] MEDS ORDERED: Miralax 17gm pkt ORAL PRN (07:15)
[2019-01-31] MEDS ORDERED: Zolpidem 5mg tab ORAL PRN (07:15)
[2019-01-31] MEDS ORDERED: LORazepam Inj 2mg/ml 1ml IV PRN (07:15)
--- NOTE | 2019-01-31 07:30 | NUR ---
NURSE NOTES: Received bedside report from Payal SPENCE. Pt. sleeping but arousable. No sign of distress. On O2 at 2LPM via NC. Denies pain at present. IV site at left hand #20g. in placed SL. F/C in placed patent/intact draining yellow colored urine. Bed in low position, locked. Call light within reach. Will cont. to monitor.
--- NOTE | 2019-01-31 07:31 | NUR ---
HAND-OFF: Report given to JORDY Moss. Pt stable..
[2019-01-31] MEDS: Aspirin EC 81mg tab ORAL SCH (09:51)
[2019-01-31] MEDS: BusPIRone 5mg Tab ORAL SCH ×2 (09:51→18:02)
[2019-01-31] MEDS: Levodopa/Carbidopa 25/100 tab ORAL SCH ×3 (09:52→18:01)
[2019-01-31] MEDS: OLANZapine 10mg tab ORAL SCH ×2 (09:52→18:01)
[2019-01-31] MEDS: Heparin 5000 units/ml inj SUBQ SCH ×2 (09:54→20:49)
--- NOTE | 2019-01-31 11:45 | NUR ---
PT NOTE Received MD order for PT evaluation, medical record reviewed. Attempted to see patient for PT evaluation however patient declined to participate due to c/o pain throughout his body. Lata SPENCE notified, will follow up tomorrow.
--- NOTE | 2019-01-31 11:49 | Consultation ---
History of Present Illness General Date patient seen: Jan 31, 2019 Chief Complaint: Seizure Present Illness HPI 43 year old male with pmhx of seizure disorder and chronic obstructive pulmonary disease, alcoholism, tobacco smoke use presents to [facility] ER with complaint of intractable seizure. Patient was lethargic and disoriented, the history obtained from emergency room doctor's note. Patient is admitted to hospital for further evaluation. Allergies: Coded Allergies: Shrimp (Verified Allergy, Severe, 01/31/19) CHLORPROMAZINE (Verified Allergy, Unknown, 11/13/17) CHLORPROPAMIDE (Unverified Allergy, Unknown, 01/28/18) DIVALPROEX SODIUM (Verified Allergy, Unknown, 04/17/17) FISH CONTAINING PRODUCTS (Verified Allergy, Unknown, 06/20/17) FISH OIL (Unverified Allergy, Unknown, 01/28/18) Uncoded Allergies: craw fish (Allergy, Severe, 01/31/19) shellfish (Allergy, Severe, 01/31/19) Medication History Scheduled Amlodipine Besylate* (Amlodipine Besylate*), 5 MG ORAL DAILY, (Reported) Aspirin* (Aspir 81*), 81 MG ORAL DAILY, (Reported) Atorvastatin Calcium* (Atorvastatin Calcium*), 20 MG ORAL BEDTIME, (Reported) Buspirone HCl* (Buspirone HCl*), 10 MG ORAL TWICE A DAY, (Reported) Buspirone Hcl* (Buspirone Hcl*), 15 MG ORAL DAILY, (Reported) Carbidopa/Levodopa 25-100 Mg* (Sinemet 25-100 Mg Tablet*), 1 TAB ORAL THREE TIMES A DAY, (Reported) Ferrous Sulfate* (Ferrous Sulfate*), 325 MG ORAL DAILY, (Reported) Finasteride (Finasteride), 5 MG ORAL DAILY, (Reported) Folic Acid* (Folic Acid*), 1 MG ORAL DAILY, (Reported) Gabapentin* (Gabapentin*), 600 MG ORAL THREE TIMES A DAY, (Reported) Levetiracetam* (Levetiracetam*), 500 MG PO BID, (Reported) Olanzapine (Olanzapine), 10 MG ORAL BID, (Reported) Omeprazole (Omeprazole), 40 MG ORAL DAILY, (Reported) Prazosin Hcl (Prazosin Hcl), 2 MG PO BEDTIME, (Reported) Quetiapine Fumarate (Quetiapine Fumarate), 200 MG ORAL BID, (Reported) Tiotropium [place]* (Spiriva*), 1 PUFF INH ONCE, (Reported) Scheduled PRN Acetaminophen* (Acetaminophen 325MG Tablet*), 650 MG ORAL Q6H PRN for Mild Pain (Pain Scale 1-3), (Reported) Albuterol Sulfate (Proventil Hfa), 2 PUFF IH Q4HR PRN for Shortness of Breath, ( Reported) Baclofen* (Baclofen*), 10 MG ORAL Q8HR PRN for Muscle Spasm, (Reported) Bisacodyl (Bisacodyl), 10 MG RC ONCE PRN for co, (Reported) Diphenhydramine Hcl* (Diphenhydramine Hcl*), 25 MG ORAL QHS PRN for Itching, ( Reported) Docusate Sodium* (Docusate Sodium*), 100 MG ORAL TWICE A DAY PRN for Constipation, (Reported) Hydrocodone Bit/Acetaminophen 10-325* ([place] 10-325*), 1 TAB ORAL Q6H PRN for For Pain, (Reported) Hydroxyzine Hcl (Hydroxyzine Hcl), 50 MG PO Q6HR PRN for For Anxiety, (Reported) Ibuprofen (Ibuprofen), 400 MG PO Q8HR PRN for For Pain, (Reported) Meclizine Hcl* (Meclizine*), 25 MG ORAL Q8HR PRN for Nausea & Vomiting, ( Reported) Na Phos,M-B/Na Phos,Di-Ba* (Fleet Enema*), 133 ML RECTAL DAILY PRN for Constipation, (Reported) Ondansetron* (Zofran*), 4 MG IM Q6H PRN for Nausea & Vomiting, (Reported) Promethazine HCl (Promethegan), 6.25-15 MG PO Q6H PRN for Nausea & Vomiting, ( Reported) Trazodone* (Trazodone*), 100 MG ORAL BEDTIME PRN for Insomnia, (Reported) Patient History Healthcare decision maker Resuscitation status Advanced Directive on File Yes Past Medical/Surgical History Past Medical/Surgical History: (1) MDD (major depressive disorder) (2) Choreoathetosis (3) COPD (chronic obstructive pulmonary disease) (4) ETOH abuse (5) Priapism (6) HTN (hypertension) (7) Seizure disorder (8) Psychiatric disorder Review of Systems All Other Systems: negative except mentioned in HPI Physical Exam General Appearance: WD/WN Lines, tubes and drains: peripheral HEENT: normocephalic, atraumatic Neck: non-tender, normal alignment Respiratory/Chest: chest wall non-tender Cardiovascular/Chest: normal peripheral pulses Abdomen: normal bowel sounds Genitourinary/Rectal: normal genital exam Last 24 Hour Vital Signs Date Time Temp Pulse Resp B/P (MAP) Pulse Ox O2 Delivery O2 Flow Rate FiO2 01/31/19 09:52 79 104/71 01/31/19 09:21 Nasal Cannula 2.0 28 01/31/19 09:19 Nasal Cannula 2.0 28 01/31/19 08:00 98.1 79 20 104/71 (82) 94 01/31/19 04:00 66 01/31/19 04:00 96.9 73 17 103/58 (73) 98 01/31/19 02:18 Nasal Cannula 2.0 01/31/19 01:44 68 01/31/19 01:25 98.6 74 16 123/77 99 Room Air 01/31/19 01:25 98.3 74 16 123/77 99 Room Air 01/31/19 00:19 98.4 76 14 112/73 96 Room Air 01/30/19 22:00 93 18 Room Air 01/30/19 22:00 98.2 91 18 124/78 94 Room Air 01/30/19 21:58 98.2 93 18 124/78 (93) 94 Room Air Intake and Output 01/30/19 01/31/19 19:00 07:00 Intake Total 615 ml Output Total 350 ml Balance 265 ml Intake Oral 0 ml IV Total 615 ml Output Urine Total 350 ml Laboratory Tests Test 01/30/19 22:06 01/30/19 23:50 White Blood Count 6.4 K/UL (4.8-10.8) Red Blood Count 4.33 M/UL (4.70-6.10) L Hemoglobin 14.8 G/DL (14.2-18.0) Hematocrit 41.8 % (42.0-52.0) L Mean Corpuscular Volume 97 FL (80-99) Mean Corpuscular Hemoglobin 34.2 PG (27.0-31.0) H Mean Corpuscular Hemoglobin Concent 35.4 G/DL (32.0-36.0) Red Cell Distribution Width 10.4 % (11.6-14.8) L Platelet Count 228 K/UL (150-450) Mean Platelet Volume 7.5 FL (6.5-10.1) Neutrophils (%) (Auto) 51.7 % (45.0-75.0) Lymphocytes (%) (Auto) 36.8 % (20.0-45.0) Monocytes (%) (Auto) 5.7 % (1.0-10.0) Eosinophils (%) (Auto) 4.3 % (0.0-3.0) H Basophils (%) (Auto) 1.5 % (0.0-2.0) Sodium Level 143 MMOL/L (136-145) Potassium Level 3.9 MMOL/L (3.5-5.1) Chloride Level 108 MMOL/L (98-107) H Carbon Dioxide Level 27 MMOL/L (21-32) Anion Gap 8 mmol/L (5-15) Blood Urea Nitrogen 8 mg/dL (7-18) Creatinine 0.9 MG/DL (0.55-1.30) Estimat Glomerular Filtration Rate > 60 mL/min (>60) Glucose Level 104 MG/DL (74-106) Calcium Level 9.2 MG/DL (8.5-10.1) Total Bilirubin 0.3 MG/DL (0.2-1.0) Aspartate Amino Transf (AST/SGOT) 17 U/L (15-37) Alanine Aminotransferase (ALT/SGPT) 10 U/L (12-78) L Alkaline Phosphatase 73 U/L (46-116) Total Protein 6.7 G/DL (6.4-8.2) Albumin 3.7 G/DL (3.4-5.0) Globulin 3.0 g/dL Albumin/Globulin Ratio 1.2 (1.0-2.7) Salicylates Level 5.6 ug/mL (2.8-20) Acetaminophen Level < 2 MCG/ML (10-30) L Serum Alcohol < 3 mg/dL Urine Color Pale yellow Urine Appearance Clear Urine pH 6.5 (4.5-8.0) Urine Specific [place] 1.010 (1.005-1.035) Urine Protein Negative (NEGATIVE) Urine Glucose (UA) Negative (NEGATIVE) Urine Ketones Negative (NEGATIVE) Urine Blood Negative (NEGATIVE) Urine Nitrite Negative (NEGATIVE) Urine Bilirubin Negative (NEGATIVE) Urine Urobilinogen Normal MG/DL (0.0-1.0) Urine Leukocyte Esterase Negative (NEGATIVE) Urine Opiates Screen Negative (NEGATIVE) Urine Barbiturates Screen Negative (NEGATIVE) Phencyclidine (PCP) Screen Negative (NEGATIVE) Urine Amphetamines Screen Negative (NEGATIVE) Urine Benzodiazepines Screen Negative (NEGATIVE) Urine Cocaine Screen Negative (NEGATIVE) Urine Marijuana (THC) Screen Negative (NEGATIVE) Microbiology Date/Time Source Procedure Growth Status 01/30/19 23:50 Rectum Received Height (Feet): 5 Height (Inches): 11.00 Weight (Pounds): 180 Medications Current Medications Medications (Trade) Dose Ordered Sig/Sharon Route PRN Reason Start Time Stop Time Status Last Admin Dose Admin Acetaminophen (Tylenol) 650 mg Q4H PRN ORAL fever 01/31/19 07:15 03/02/19 07:14 Amlodipine Besylate (Norvasc) 5 mg DAILY ORAL 01/31/19 09:00 03/02/19 08:59 01/31/19 09:52 Aspirin (Ecotrin) 81 mg DAILY ORAL 01/31/19 09:00 03/02/19 08:59 01/31/19 09:51 Baclofen (Lioresal) 10 mg Q8H PRN ORAL Muscle Spasm 01/31/19 07:15 03/02/19 07:14 Buspirone HCl (Buspar) 10 mg TWICE A DAY ORAL 01/31/19 09:00 03/02/19 08:59 01/31/19 09:51 Carbidopa/Levodopa (Sinemet 25/100) 1 tab THREE TIMES A DAY ORAL 01/31/19 09:00 03/02/19 08:59 01/31/19 09:52 Dextrose (Dextrose 50%) 25 ml Q30M PRN IV Hypoglycemia 01/31/19 07:15 03/02/19 07:14 Dextrose (Dextrose 50%) 25 ml Q30M PRN IV Hypoglycemia 01/31/19 07:15 03/02/19 07:14 Finasteride (Proscar) 5 mg DAILY ORAL 01/31/19 09:00 03/02/19 08:59 01/31/19 09:52 Heparin Sodium (Porcine) (Heparin 5000 units/ml) 5,000 units EVERY 12 HOURS SUBQ 01/31/19 09:00 03/02/19 08:59 01/31/19 09:54 Levetiracetam (Keppra) 500 mg BID ORAL 01/31/19 09:00 03/02/19 08:59 01/31/19 09:52 Lorazepam (Ativan 2mg/ml 1ml) 2 mg Q1H PRN IV seizures 01/31/19 07:15 02/07/19 07:14 Meclizine HCl (Antivert) 25 mg Q8H PRN ORAL Nausea & Vomiting 01/31/19 07:15 03/02/19 07:14 Morphine Sulfate (Morphine Sulfate) 1 mg Q4H PRN IVP For Pain 01/31/19 07:15 02/07/19 07:14 Olanzapine (ZyPREXA) 10 mg BID ORAL 01/31/19 09:00 03/02/19 08:59 01/31/19 09:52 Ondansetron HCl (Zofran) 4 mg Q6H PRN IVP Nausea & Vomiting 01/31/19 07:15 03/02/19 07:14 Polyethylene Glycol (Miralax) 17 gm HSPRN PRN ORAL Constipation 01/31/19 07:15 03/02/19 07:14 Tiotropium [place] (Spiriva Inhaler) 1 puff DAILY INH 01/31/19 09:00 03/02/19 08:59 Trazodone HCl (Desyrel) 100 mg BEDTIME PRN ORAL Insomnia 01/31/19 07:15 03/02/19 07:14 Zolpidem Tartrate (Ambien) 5 mg HSPRN PRN ORAL Insomnia 01/31/19 07:15 02/07/19 07:14 Assessment/Plan Problem List: (1) Uncontrolled seizures ICD Codes: R56.9 - Unspecified convulsions SNOMED: 01965822 (2) COPD (chronic obstructive pulmonary disease) ICD Codes: J44.9 - Chronic obstructive pulmonary disease, unspecified SNOMED: 03844440 (3) Psychiatric disorder ICD Codes: F99 - Mental disorder, not otherwise specified SNOMED: 18451682, 276267305 (4) Choreoathetosis ICD Codes: G25.5 - Other chorea SNOMED: 15849487 (5) HTN (hypertension) ICD Codes: I10 - Essential (primary) hypertension SNOMED: 10084651 Assessment/Plan: check Keppra level, was not sent in ER increase the dose of keppra symptomatic treatment check electrolytes Neuro evaluation is requested dvt prophylaxis. Patricio Strong MD Jan 31, 2019 11:49
[2019-01-31] MEDS: Morphine Sulfate 2mg/ml Inj(IV/IM USE ONLY) IVP PRN ×2 (13:52→19:41)
--- NOTE | 2019-01-31 17:10 | NUR ---
NURSE NOTES: No seizure noted. Pleasant and cooperative with care.
--- NOTE | 2019-01-31 18:33 | Cardiology Report ---
APPROVED REPORT EKG Measurement Heart [id number] Normal sinus rhythm Normal ECG
--- NOTE | 2019-01-31 19:30 | NUR ---
NURSE NOTES: Received patient from Lata SPENCE. Patient in bed, alert and oriented x3, on 2L NC, no signs of respiratory distress. Bed in low position, locked, bed alarm on, call light within reach. Left hand 20 gauge intact, patent, no signs of infiltration. Repositioned patient for comfort.
--- NOTE | 2019-01-31 19:38 | NUR ---
HAND-OFF: Report given to Rahul SPENCE. Pt. remain stable.
[2019-01-31] MEDS ORDERED: ATIVAN0.5 MG IM (20:28)
[2019-01-31] MEDS ORDERED: LORAZEPAM1 MG ORAL (20:31)
[2019-01-31] MEDS ORDERED: LORAZEPAM2 MG/1 M1 IM (20:31)
[2019-01-31] MEDS: TraZODone 100mg tab ORAL PRN (20:42)
--- NOTE | 2019-01-31 21:00 | NUR ---
NURSE NOTES: Patient requested CXR for pain on his right side of his torso, albuterol for breathing and new medication for seizures. Patient refused [address] Strong of patient's refusal to take keppra. No new orders. Informed patient that Dr. Strong increased his dose because he wasn't taking enough. Patient still refused and wants new medication.
[2019-02-01] VITALS: BP 104/51
--- NOTE | 2019-02-01 03:00 | History and Physical Report ---
DATE OF ADMISSION: 01/31/2019 TIME SEEN: At 9:00 a.m. CONSULTANTS: 1. Patricio Strong M.D. 2. . 3. Carolina Dye M.D. CHIEF COMPLAINT: Recurrent seizure, shortness of breath, chronic pain. BRIEF HISTORY: This is a 43-year-old male from [facility], presented with seizures x2, short of breath, pain getting worse all over, slight nausea. The patient came to [place], diagnosed with the above, admitted to telemetry for further care. Currently, calm in bed, O2 NC, slight short of breath, slight joint pain. No complaint. REVIEW OF SYSTEMS: Slight chest pain, slight short of breath, slight nausea. No vomiting or diarrhea. PAST MEDICAL HISTORY: Include hypertension, decubitus ulcers, seizure, psych history, priapism, COPD. PAST SURGICAL HISTORY: Penile surgery. MEDICATIONS: Include heparin, amlodipine, aspirin, buspirone, carbidopa, finasteride, olanzapine, zolpidem, lorazepam, morphine, baclofen, meclizine, levetiracetam. ALLERGIES: Depakote, chlorpromazine, divalproex, . SOCIAL HISTORY: Positive smoking. No alcohol. No intravenous drug abuse. FAMILY HISTORY: Noncontributory. PHYSICAL EXAMINATION: GENERAL: O2 NC, slight short of breath, in bed, oriented x3, in no acute distress. VITAL SIGNS: Temperature 98, pulse 89, respirations 20, and blood pressure 104/71. CARDIOVASCULAR: No murmurs. LUNGS: Poor air exchange. ABDOMEN: Bowel sounds distant. EXTREMITIES: No cyanosis or edema. NEUROLOGIC: The patient moves all extremities, slightly weak. LABORATORY AND DIAGNOSTIC DATA: CBC is normal. BMP shows chloride 108, otherwise normal. Urine toxicology is negative and urinalysis is negative. ASSESSMENT: 1. Shortness of breath. 2. Chronic pain. 3. Nausea. 4. Hypertension. 5. Decubitus ulcer history. 6. Seizure. 7. Priapism. 8. COPD. PLAN: 1. Seizure control. 2. Pain control. 3. Blood pressure control. 4. Dietary followup. 5. Resume home medications. 6. evaluation. 7. CBC, BMP in the morning. 8. PT, dietary evaluation. Curtis Gavin D.O. DR: LEN JOB#: [id number] CC:
[2019-02-01 04:00] VITALS: BP 116/66
[2019-02-01] MEDS: Morphine Sulfate 2mg/ml Inj(IV/IM USE ONLY) IVP PRN (06:09)
[2019-02-01 07:18] LABS: ALANINE AMINOTRANSFERASE 10 U/L (12-78); ALBUMIN 3.4 G/DL (3.4-5.0); ALBUMIN/GLOBULIN RATIO 1.1 (1.0-2.7); ALKALINE PHOSPHATASE 69 U/L (46-116); ANION GAP 11 mmol/L (5-15); ASPARTATE AMINO TRANSFERASE 14 U/L (15-37); BILIRUBIN,TOTAL 0.2 MG/DL (0.2-1.0); BLOOD UREA NITROGEN 19 mg/dL (7-18); CALCIUM 9.2 MG/DL (8.5-10.1); CARBON DIOXIDE 24 MMOL/L (21-32); CHLORIDE 109 MMOL/L (98-107); CREATININE 0.9 MG/DL (0.55-1.30); POTASSIUM 4.3 MMOL/L (3.5-5.1); SODIUM 144 MMOL/L (136-145)
[2019-02-01 07:20] LABS: BASOPHILS % (AUTO) 0.8 % (0.0-2.0); EOSINOPHILS % (AUTO) 2.3 % (0.0-3.0); HEMATOCRIT 41.9 % (42.0-52.0); HEMOGLOBIN 14.5 G/DL (14.2-18.0); LYMPHOCYTES % (AUTO) 18.2 % (20.0-45.0); MEAN CORPUSCULAR VOLUME 99 FL (80-99); MONOCYTES % (AUTO) 4.7 % (1.0-10.0); PLATELET COUNT 222 K/UL (150-450); RED BLOOD COUNT 4.22 M/UL (4.70-6.10); RED CELL DISTRIBUTION WIDTH 10.7 % (11.6-14.8); WHITE BLOOD COUNT 9.8 K/UL (4.8-10.8)
--- NOTE | 2019-02-01 07:35 | NUR ---
NURSE NOTES: Received report from Bharati Viramontes RN. Patient asleep in bed, opens eyes spontaneously, able to follow commands and make needs known. Receiving O2 via nasal cannula @ 2L/min, respirations even and unlabored. Left hand 20g saline lock patent and asymptomatic. Bed locked in lowest position with side rails up x 3. All needs attended to. Call light within reach. Will continue to monitor.
--- NOTE | 2019-02-01 07:35 | NUR ---
HAND-OFF: Report given to Carissa SPENCE. Plan of care endorsed.
[2019-02-01 08:00] VITALS: BP 98/57
--- NOTE | 2019-02-01 08:29 | General Progress Note ---
Assessment/Plan Assessment/Plan: (1) Epilepsy (2) Neuropathic pain (3) Paraplegia (4) Chronic pain syndrome Pt will be discontinued off Morphine and we will start norco 10/325mg PO 1 tab Q4H PRN severe pain D/w Dr. Dye and he concurred. Subjective Date patient seen: Feb 01, 2019 Time patient seen: 08:00 - am Constitutional: Reports: weakness HEENT: Reports: no symptoms Cardiovascular: Reports: no symptoms Respiratory: Reports: no symptoms Gastrointestinal/Abdominal: Reports: no symptoms Genitourinary: Reports: no symptoms Neurologic/Psychiatric: Reports: weakness Endocrine: Reports: no symptoms Hematologic/Lymphatic: Reports: no symptoms Allergies: Coded Allergies: Shrimp (Verified Allergy, Severe, 01/31/19) CHLORPROMAZINE (Verified Allergy, Unknown, 11/13/17) CHLORPROPAMIDE (Unverified Allergy, Unknown, 01/28/18) DIVALPROEX SODIUM (Verified Allergy, Unknown, 04/17/17) FISH CONTAINING PRODUCTS (Verified Allergy, Unknown, 06/20/17) FISH OIL (Unverified Allergy, Unknown, 01/28/18) Uncoded Allergies: craw fish (Allergy, Severe, 01/31/19) shellfish (Allergy, Severe, 01/31/19) Subjective Patient is a known patient from prior admission and has been admitted under the care of Dr. Gavin due to seizures. He continues to c/o body pain and was started on Morphine 1mg IV Q4H PRN. I d/w him about changing to [place] 10/325mg PO 1 tab Q4h PRN severe pain he seems to understand. Objective Last 24 Hour Vital Signs Date Time Temp Pulse Resp B/P (MAP) Pulse Ox O2 Delivery O2 Flow Rate FiO2 02/01/19 04:00 58 02/01/19 04:00 98.2 74 20 116/66 (83) 96 02/01/19 00:00 61 02/01/19 00:00 98.1 67 20 104/51 (68) 98 01/31/19 21:00 Room Air 01/31/19 20:11 98.1 01/31/19 20:00 98.1 67 18 116/67 (83) 98 01/31/19 20:00 68 01/31/19 16:00 97.5 75 20 112/65 (81) 98 01/31/19 15:14 78 01/31/19 12:00 98.0 84 18 113/70 (84) 100 01/31/19 11:32 78 01/31/19 09:52 79 104/71 01/31/19 09:21 Nasal Cannula 2.0 28 01/31/19 09:19 Nasal Cannula 2.0 28 01/31/19 09:00 Room Air Intake and Output 01/31/19 02/01/19 19:00 07:00 Intake Total 360 ml Output Total 700 ml Balance -340 ml Intake Oral 360 ml Output Urine Total 700 ml Laboratory Tests 01/31/19 11:00: Levetiracetam (Keppra) Level [Pending] 02/01/19 06:02: White Blood Count 9.8#, Red Blood Count 4.22L, Hemoglobin 14.5, Hematocrit 41.9L , Mean Corpuscular Volume 99, Mean Corpuscular Hemoglobin 34.4H, Mean Corpuscular Hemoglobin Concent 34.7, Red Cell Distribution Width 10.7L, Platelet Count 222, Mean Platelet Volume 7.3, Neutrophils (%) (Auto) 74.0, Lymphocytes (%) (Auto) 18.2L, Monocytes (%) (Auto) 4.7, Eosinophils (%) (Auto) 2.3, Basophils (%) (Auto) 0.8, Sodium Level 144, Potassium Level 4.3, Chloride Level 109H, Carbon Dioxide Level 24, Anion Gap 11, Blood Urea Nitrogen 19H, Creatinine 0.9, Estimat Glomerular Filtration Rate > 60, Glucose Level 101, Calcium Level 9.2, Total Bilirubin 0.2, Aspartate Amino Transf (AST/SGOT) 14L, Alanine Aminotransferase (ALT/SGPT) 10L, Alkaline Phosphatase 69, Total Protein 6.4, Albumin 3.4, Globulin 3.0, Albumin/Globulin Ratio 1.1 Height (Feet): 5 Height (Inches): 11.00 Weight (Pounds): 180 Objective GENERAL: Alert, awake, and oriented. LUNGS: Clear bilaterally. HEART: S1 S2 Regular. ABDOMEN: Soft non-tender EXTREMITIES: No cyanosis. No clubbing. No edema. NEUROLOGIC: weakness noted in extremities. Justice Mead Feb 01, 2019 08:29
[2019-02-01] MEDS: BusPIRone 5mg Tab ORAL SCH ×2 (09:28→17:57)
[2019-02-01] MEDS: HYDROcodone/Acetamin 10/325 tab ORAL PRN ×2 (09:28→16:29)
[2019-02-01] MEDS: Aspirin EC 81mg tab ORAL SCH (09:29)
[2019-02-01] MEDS: OLANZapine 10mg tab ORAL SCH ×2 (09:31→17:57)
[2019-02-01] MEDS: Levodopa/Carbidopa 25/100 tab ORAL SCH ×3 (09:31→17:57)
[2019-02-01] MEDS: Heparin 5000 units/ml inj SUBQ SCH ×2 (09:46→21:05)
--- NOTE | 2019-02-01 10:50 | NUR ---
PT EVALUATION NOTE Patient seen for initial evaluation, see complete evaluation for details. Patient presents with generalized weakness and pain which affects patient's balance and functional mobility. Patient requires mod assist for bed mobility, declined transfers OOB. Patient states he has been non-ambulatory for one year. Patient will benefit from skilled inpatient PT intervention to address strength, balance, safety, bed mobility and transfers to improve level of function. Recommend discharge to SNF once medically cleared by MD. Addendum: 02/01/19 at 1236 by NEDA LOPEZ PT Amended: Links added.
--- NOTE | 2019-02-01 11:13 | Pulmonology Progress Note ---
Assessment/Plan Problems: (1) Uncontrolled seizures (2) COPD (chronic obstructive pulmonary disease) (3) Psychiatric disorder (4) Choreoathetosis (5) HTN (hypertension) Assessment/Plan refusing Depakote respiratory treatment titrate fio2 to sat of 92% monitor BP symptomatic treatment dvt prophylaxis. Subjective ROS Limited/Unobtainable: No Interval Events: refusing depakote Constitutional: Reports: no symptoms HEENT: Repors: no symptoms Respiratory: Reports: no symptoms Allergies: Coded Allergies: Shrimp (Verified Allergy, Severe, 01/31/19) CHLORPROMAZINE (Verified Allergy, Unknown, 11/13/17) CHLORPROPAMIDE (Unverified Allergy, Unknown, 01/28/18) DIVALPROEX SODIUM (Verified Allergy, Unknown, 04/17/17) FISH CONTAINING PRODUCTS (Verified Allergy, Unknown, 06/20/17) FISH OIL (Unverified Allergy, Unknown, 01/28/18) Uncoded Allergies: craw fish (Allergy, Severe, 01/31/19) shellfish (Allergy, Severe, 01/31/19) Objective Last 24 Hour Vital Signs Date Time Temp Pulse Resp B/P (MAP) Pulse Ox O2 Delivery O2 Flow Rate FiO2 02/01/19 09:58 97.8 02/01/19 09:14 Nasal Cannula 2.0 28 02/01/19 09:13 93 20 84 Nasal Cannula 2.0 28 02/01/19 09:00 85 98/57 02/01/19 08:02 79 02/01/19 08:00 97.8 85 20 98/57 (71) 96 02/01/19 04:00 58 02/01/19 04:00 98.2 74 20 116/66 (83) 96 02/01/19 00:00 61 02/01/19 00:00 98.1 67 20 104/51 (68) 98 01/31/19 21:00 Room Air 01/31/19 20:11 98.1 01/31/19 20:00 98.1 67 18 116/67 (83) 98 01/31/19 20:00 68 01/31/19 16:00 97.5 75 20 112/65 (81) 98 01/31/19 15:14 78 01/31/19 12:00 98.0 84 18 113/70 (84) 100 01/31/19 11:32 78 Intake and Output 01/31/19 02/01/19 19:00 07:00 Intake Total 360 ml Output Total 700 ml Balance -340 ml Intake Oral 360 ml Output Urine Total 700 ml General Appearance: WD/WN, no acute distress HEENT: normocephalic, atraumatic Respiratory/Chest: chest wall non-tender, lungs clear Cardiovascular: normal peripheral pulses, normal rate Abdomen: normal bowel sounds, soft, non tender Neurologic/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: 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, normal mood/affect Microbiology Date/Time Source Procedure Growth Status 01/30/19 23:50 Rectum Received Laboratory Tests 02/01/19 06:02: White Blood Count 9.8#, Red Blood Count 4.22L, Hemoglobin 14.5, Hematocrit 41.9L , Mean Corpuscular Volume 99, Mean Corpuscular Hemoglobin 34.4H, Mean Corpuscular Hemoglobin Concent 34.7, Red Cell Distribution Width 10.7L, Platelet Count 222, Mean Platelet Volume 7.3, Neutrophils (%) (Auto) 74.0, Lymphocytes (%) (Auto) 18.2L, Monocytes (%) (Auto) 4.7, Eosinophils (%) (Auto) 2.3, Basophils (%) (Auto) 0.8, Sodium Level 144, Potassium Level 4.3, Chloride Level 109H, Carbon Dioxide Level 24, Anion Gap 11, Blood Urea Nitrogen 19H, Creatinine 0.9, Estimat Glomerular Filtration Rate > 60, Glucose Level 101, Calcium Level 9.2, Total Bilirubin 0.2, Aspartate Amino Transf (AST/SGOT) 14L, Alanine Aminotransferase (ALT/SGPT) 10L, Alkaline Phosphatase 69, Total Protein 6.4, Albumin 3.4, Globulin 3.0, Albumin/Globulin Ratio 1.1 Current Medications Medications (Trade) Dose Ordered Sig/Sharon Route PRN Reason Start Time Stop Time Status Last Admin Dose Admin Acetaminophen (Tylenol) 650 mg Q4H PRN ORAL fever 01/31/19 07:15 03/02/19 07:14 Acetaminophen/ Hydrocodone Bitart ([place] 10/325) 1 tab Q4H PRN ORAL severe pain 02/01/19 08:24 02/08/19 08:23 02/01/19 09:28 Amlodipine Besylate (Norvasc) 5 mg DAILY ORAL 01/31/19 09:00 03/02/19 08:59 01/31/19 09:52 Aspirin (Ecotrin) 81 mg DAILY ORAL 01/31/19 09:00 03/02/19 08:59 02/01/19 09:29 Baclofen (Lioresal) 10 mg Q8H PRN ORAL Muscle Spasm 01/31/19 07:15 03/02/19 07:14 01/31/19 22:30 Buspirone HCl (Buspar) 10 mg TWICE A DAY ORAL 01/31/19 09:00 03/02/19 08:59 02/01/19 09:28 Carbidopa/Levodopa (Sinemet 25/100) 1 tab THREE TIMES A DAY ORAL 01/31/19 09:00 03/02/19 08:59 02/01/19 09:31 Dextrose (Dextrose 50%) 25 ml Q30M PRN IV Hypoglycemia 01/31/19 07:15 03/02/19 07:14 Dextrose (Dextrose 50%) 25 ml Q30M PRN IV Hypoglycemia 01/31/19 07:15 03/02/19 07:14 Finasteride (Proscar) 5 mg DAILY ORAL 01/31/19 09:00 03/02/19 08:59 02/01/19 09:29 Heparin Sodium (Porcine) (Heparin 5000 units/ml) 5,000 units EVERY 12 HOURS SUBQ 01/31/19 09:00 03/02/19 08:59 02/01/19 09:46 Levetiracetam (Keppra) 1,000 mg Q12HR ORAL 01/31/19 21:00 03/02/19 20:59 Lorazepam (Ativan 2mg/ml 1ml) 2 mg Q1H PRN IV seizures 01/31/19 07:15 02/07/19 07:14 Meclizine HCl (Antivert) 25 mg Q8H PRN ORAL Nausea & Vomiting 01/31/19 07:15 03/02/19 07:14 Olanzapine (ZyPREXA) 10 mg BID ORAL 01/31/19 09:00 03/02/19 08:59 02/01/19 09:31 Ondansetron HCl (Zofran) 4 mg Q6H PRN IVP Nausea & Vomiting 01/31/19 07:15 03/02/19 07:14 02/01/19 09:29 Polyethylene Glycol (Miralax) 17 gm HSPRN PRN ORAL Constipation 01/31/19 07:15 03/02/19 07:14 Tiotropium [place] (Spiriva Inhaler) 1 puff DAILY INH 01/31/19 09:00 03/02/19 08:59 Trazodone HCl (Desyrel) 100 mg BEDTIME PRN ORAL Insomnia 01/31/19 07:15 03/02/19 07:14 01/31/19 20:42 Zolpidem Tartrate (Ambien) 5 mg HSPRN PRN ORAL Insomnia 01/31/19 07:15 02/07/19 07:14 Patricio Strong MD Feb 01, 2019 11:13
[2019-02-01 12:00] VITALS: BP 110/69
--- NOTE | 2019-02-01 13:34 | General Progress Note ---
Assessment/Plan Problem List: (1) Psychiatric disorder ICD Codes: F99 - Mental disorder, not otherwise specified SNOMED: 41822956, 147015442 (2) Seizure disorder ICD Codes: G40.909 - Epilepsy, unspecified, not intractable, without status epilepticus SNOMED: 343901076 (3) HTN (hypertension) ICD Codes: I10 - Essential (primary) hypertension SNOMED: 06814029 (4) Priapism ICD Codes: N48.30 - Priapism, unspecified SNOMED: 5862710, 150741842 (5) Uncontrolled seizures ICD Codes: R56.9 - Unspecified convulsions SNOMED: 37333805 (6) COPD (chronic obstructive pulmonary disease) ICD Codes: J44.9 - Chronic obstructive pulmonary disease, unspecified SNOMED: 40178677 (7) Decubital ulcer ICD Codes: L89.90 - Pressure ulcer of unspecified site, unspecified stage SNOMED: 116817915 Status: stable, progressing Assessment/Plan: o2 pulm tx seizure control cbc bmp am Subjective Constitutional: Reports: weakness Allergies: Coded Allergies: Shrimp (Verified Allergy, Severe, 01/31/19) CHLORPROMAZINE (Verified Allergy, Unknown, 11/13/17) CHLORPROPAMIDE (Unverified Allergy, Unknown, 01/28/18) DIVALPROEX SODIUM (Verified Allergy, Unknown, 04/17/17) FISH CONTAINING PRODUCTS (Verified Allergy, Unknown, 06/20/17) FISH OIL (Unverified Allergy, Unknown, 01/28/18) Uncoded Allergies: craw fish (Allergy, Severe, 01/31/19) shellfish (Allergy, Severe, 01/31/19) All Systems: reviewed and negative except above Subjective o2nc calm Objective Last 24 Hour Vital Signs Date Time Temp Pulse Resp B/P (MAP) Pulse Ox O2 Delivery O2 Flow Rate FiO2 02/01/19 09:58 97.8 02/01/19 09:14 Nasal Cannula 2.0 28 02/01/19 09:13 93 20 84 Nasal Cannula 2.0 28 02/01/19 09:00 85 98/57 02/01/19 08:02 79 02/01/19 08:00 97.8 85 20 98/57 (71) 96 02/01/19 04:00 58 02/01/19 04:00 98.2 74 20 116/66 (83) 96 02/01/19 00:00 61 02/01/19 00:00 98.1 67 20 104/51 (68) 98 01/31/19 21:00 Room Air 01/31/19 20:11 98.1 01/31/19 20:00 98.1 67 18 116/67 (83) 98 01/31/19 20:00 68 01/31/19 16:00 97.5 75 20 112/65 (81) 98 01/31/19 15:14 78 Intake and Output 01/31/19 02/01/19 19:00 07:00 Intake Total 360 ml Output Total 700 ml Balance -340 ml Intake Oral 360 ml Output Urine Total 700 ml Laboratory Tests 02/01/19 06:02: White Blood Count 9.8#, Red Blood Count 4.22L, Hemoglobin 14.5, Hematocrit 41.9L , Mean Corpuscular Volume 99, Mean Corpuscular Hemoglobin 34.4H, Mean Corpuscular Hemoglobin Concent 34.7, Red Cell Distribution Width 10.7L, Platelet Count 222, Mean Platelet Volume 7.3, Neutrophils (%) (Auto) 74.0, Lymphocytes (%) (Auto) 18.2L, Monocytes (%) (Auto) 4.7, Eosinophils (%) (Auto) 2.3, Basophils (%) (Auto) 0.8, Sodium Level 144, Potassium Level 4.3, Chloride Level 109H, Carbon Dioxide Level 24, Anion Gap 11, Blood Urea Nitrogen 19H, Creatinine 0.9, Estimat Glomerular Filtration Rate > 60, Glucose Level 101, Calcium Level 9.2, Total Bilirubin 0.2, Aspartate Amino Transf (AST/SGOT) 14L, Alanine Aminotransferase (ALT/SGPT) 10L, Alkaline Phosphatase 69, Total Protein 6.4, Albumin 3.4, Globulin 3.0, Albumin/Globulin Ratio 1.1 Height (Feet): 5 Height (Inches): 11.00 Weight (Pounds): 180 General Appearance: lethargic EENT: normal ENT inspection Neck: normal alignment Cardiovascular: normal peripheral pulses, normal rate, regular rhythm Respiratory/Chest: chest wall non-tender, lungs clear, normal breath sounds Abdomen: normal bowel sounds, non tender, soft Extremities: normal inspection Edema: no edema noted Arm (L), no edema noted Arm (R), no edema noted Leg (L), no edema noted Leg (R), no edema noted Pedal (L), no edema noted Pedal (R), no edema noted Generalized Neurologic: responsive, motor weakness Skin: normal pigmentation, warm/dry Curtis Gavin DO Feb 01, 2019 13:34
[2019-02-01 16:00] VITALS: BP 110/60
--- NOTE | 2019-02-01 16:05 | NUR ---
CASE MANAGEMENT:REVIEW 43 YR OLD MALE BIBA FROM [facility] CC: MULTIPLE SEIZURE SI: SEIZURE. PSYCH DISORDER 98.3 93 18 124/78 94% ON RA IS: IV KEPPRA 500CC NS BOLUS CT HEAD : TO TELEMETRY PLAN: STANDARD SEIZURE PROTOCOL ~ SEIZURE PRECAUTIONS AND NEURO CHECKS Q4HRS INTERQUAL CRITERIA MET
--- NOTE | 2019-02-01 19:08 | NUR ---
HAND-OFF: Report given to Bharati Viramontes RN.
--- NOTE | 2019-02-01 19:30 | NUR ---
NURSE NOTES: Patient in bed, on 2L NC, no signs of respiratory distress. Alert and oriented x4. Corbin catheter intact, patent, draining. Bed in low position, locked, bed alarm on, call light within reach.
[2019-02-01 20:00] VITALS: BP 103/64
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
[2019-02-01] MEDS: Lacosamide 50mg tablet ORAL SCH (21:01)
[2019-02-01] MEDS: TraZODone 100mg tab ORAL PRN (21:02)
--- NOTE | 2019-02-01 21:30 | Consultation ---
DATE OF CONSULTATION: 02/01/2019 CONSULTING PHYSICIAN: Billy Dimas M.D. REFERRING PHYSICIAN: Curtis Gavin D.O. HISTORY OF PRESENT ILLNESS: This is a 43-year-old male patient. I saw and assessed in his room today. This patient was admitted to the hospital at [facility] secondary to recurrent seizure, shortness of breath, and chronic back pain. He came from [facility], seizures x2 days, shortness of breath, chronic pain, but he also has a diagnosis of schizoaffective, bipolar type and multiple psychiatric admissions. He has had multiple psychiatric admissions and seen by myself multiple times, but he has increased mood liability worsened by the stress of medical illness. That is why, his attending physician has requested daily psychiatric consultation for this patient. PAST MEDICAL HISTORY: The patient has history of hypertension, decubitus ulcer, seizure disorder, priapism, and COPD. MEDICATIONS: Psychotropic medications on admission, the patient is normally on Zyprexa 10 twice a day, trazodone 100 mg at bedtime, and BuSpar 10 twice a day. ALLERGIES: Depakote, Thorazine, and chlorpromazine. SUBSTANCE ABUSE HISTORY: Currently denies drug or alcohol use. FAMILY PSYCH HISTORY: Denies. PAIN ASSESSMENT: A 07/25 pain. DEVELOPMENTAL PROBLEMS: Denies. SOCIAL HISTORY: The patient lives in [facility]. Financially supported by [facility] and Medicare. STRENGTHS: He is motivated to get better and has a place to live. WEAKNESSES: Impulsive and minimal support system. MENTAL STATUS EXAMINATION: A 43-year-old male. Appearance is disheveled. Attitude, irritable and agitated. Affect, guarded and restricted. Intellect poor. Mood, depressed and anxious. Motor activity, psychomotor agitation. Attention span is poor. Orientation x2. Speech is low volume, slurred. Thought process, disorganized and illogical. Insight and judgment is fair. DIAGNOSIS: Schizoaffective, bipolar type. Secondary medical includes hypertension, decubitus ulcers, seizure disorder, priapism, COPD, psychosocial stressors, financial functional impairment is severe. PLAN: Treat the patient with psychotropic medication regimen consisting of Zyprexa 10 mg twice a day and also trazodone 100 at bedtime, Ativan 2 IV q.6 hours p.r.n. anxiety and agitation, BuSpar 10 twice a day. 20 minutes of cognitive behavioral therapy provided to help him identify his automatic negative thoughts, help him convert his negative thoughts to more positive thoughts to reduce depression, anxiety, suicidality. Chart reviewed and discussed with staff. The patient is seen and assessed at bedside. I would like to thank Dr. Gavin for this interesting consultation. Wing Cervantes M.D. DR: JOAQUÍN JOB#: [id number] CC:
--- NOTE | 2019-02-01 22:30 | NUR ---
NURSE NOTES: Patient c/o blake catheter pain and that he can't stand it and wants to "pull it out." Some hematuria noted in blake tubing. Notified Dr. Gavin regarding hematuria and catheter pain. Received orders to DC blake if "no urinary obstruction or decubitus ulcer." Blake catheter was still patent. Patient does not have decubitus ulcer. DC'd blake catheter. No blood observed. Patient verbalized relief of pain right after blake catheter came out.
[2019-02-02] VITALS: BP 101/62
[2019-02-02 04:00] VITALS: BP 109/65
--- NOTE | 2019-02-02 06:01 | NUR ---
NURSE NOTES: Patient had blake catheter removed yesterday and was able to void this morning. No c/o pain, no bladder distention noted.
--- NOTE | 2019-02-02 06:52 | NUR ---
CASE MANAGEMENT:REVIEW 02/02/19 SI: SEIZURE. SCHIZOPHRENIA 97.9 65 20 109/65 96% ON RA IS: VIMPAT PO Q12 KEPPRA PO Q12 HEPARIN SQ Q12 NORVASC PO QD ASA PO QD PROSCAR PO QD ZYPREXA PO BID : TELEMETRY STATUS DCP: FROM [facility]
--- NOTE | 2019-02-02 06:56 | NUR ---
DISCHARGE PLANNING PATIENT WAS REFERRED TO [facility] AND WAS DECLINED BY TATI T: [phone] PATIENT WILL RETURN TO [facility] AND NURSING UPON DISCHARGE
[2019-02-02 07:05] LABS: BASOPHILS % (AUTO) 0.8 % (0.0-2.0); EOSINOPHILS % (AUTO) 2.2 % (0.0-3.0); HEMATOCRIT 42.5 % (42.0-52.0); HEMOGLOBIN 14.6 G/DL (14.2-18.0); LYMPHOCYTES % (AUTO) 16.9 % (20.0-45.0); MEAN CORPUSCULAR VOLUME 97 FL (80-99); MONOCYTES % (AUTO) 4.2 % (1.0-10.0); NEUTROPHILS % (AUTO) 75.9 % (45.0-75.0); PLATELET COUNT 222 K/UL (150-450); RED BLOOD COUNT 4.37 M/UL (4.70-6.10); WHITE BLOOD COUNT 11.8 K/UL (4.8-10.8)
[2019-02-02 07:19] LABS: ANION GAP 8 mmol/L (5-15); BLOOD UREA NITROGEN 16 mg/dL (7-18); CALCIUM 9.1 MG/DL (8.5-10.1); CARBON DIOXIDE 26 MMOL/L (21-32); CHLORIDE 108 MMOL/L (98-107); CREATININE 0.9 MG/DL (0.55-1.30); POTASSIUM 4.2 MMOL/L (3.5-5.1); SODIUM 142 MMOL/L (136-145)
--- NOTE | 2019-02-02 07:40 | NUR ---
HAND-OFF: Report given to Amanda SPENCE. Plan of care endorsed.
--- NOTE | 2019-02-02 07:45 | NUR ---
NURSE NOTES: Report received from Rahul SPENCE.Pt resting in bed awake alert eating breakfast in no acute resp distress,on 2 L NC,denies any c/o pain or discomfort SR on the monitor,IV site to LH intact,skin warm and dry ,SR up x2 HOB elevated bed lock in lowest position,will continue with plans of care.
[2019-02-02 08:00] VITALS: BP 110/69
--- NOTE | 2019-02-02 08:30 | General Progress Note ---
Assessment/Plan Assessment/Plan: (1) Epilepsy (2) Neuropathic pain (3) Paraplegia (4) Chronic pain syndrome Pt will be continued on norco D/w Dr. Dye and he concurred. Subjective Date patient seen: Feb 02, 2019 Time patient seen: 08:00 - am Constitutional: Reports: weakness HEENT: Reports: no symptoms Cardiovascular: Reports: no symptoms Respiratory: Reports: no symptoms Gastrointestinal/Abdominal: Reports: no symptoms Genitourinary: Reports: no symptoms Neurologic/Psychiatric: Reports: weakness Endocrine: Reports: no symptoms Hematologic/Lymphatic: Reports: no symptoms Allergies: Coded Allergies: Shrimp (Verified Allergy, Severe, 01/31/19) CHLORPROMAZINE (Verified Allergy, Unknown, 11/13/17) CHLORPROPAMIDE (Unverified Allergy, Unknown, 01/28/18) DIVALPROEX SODIUM (Verified Allergy, Unknown, 04/17/17) FISH CONTAINING PRODUCTS (Verified Allergy, Unknown, 06/20/17) FISH OIL (Unverified Allergy, Unknown, 01/28/18) Uncoded Allergies: craw fish (Allergy, Severe, 01/31/19) shellfish (Allergy, Severe, 01/31/19) Subjective Patient is in bed pain is tolerated on the [place] No new complaints at this time. Objective Last 24 Hour Vital Signs Date Time Temp Pulse Resp B/P (MAP) Pulse Ox O2 Delivery O2 Flow Rate FiO2 02/02/19 08:00 98.1 80 20 110/69 (83) 96 02/02/19 04:00 97.9 65 20 109/65 (80) 96 02/02/19 04:00 66 02/02/19 00:00 98.0 63 20 101/62 (75) 99 02/02/19 00:00 59 02/01/19 21:00 Room Air 02/01/19 20:00 64 02/01/19 20:00 98.3 66 21 103/64 (77) 100 02/01/19 16:59 98.7 02/01/19 16:00 98.2 75 20 110/60 (77) 98 02/01/19 15:27 69 02/01/19 12:00 98.7 66 18 110/69 (83) 100 02/01/19 11:54 67 02/01/19 09:14 Nasal Cannula 2.0 28 02/01/19 09:13 93 20 84 Nasal Cannula 2.0 28 02/01/19 09:00 85 98/57 02/01/19 09:00 Room Air Intake and Output 02/01/19 02/02/19 19:00 07:00 Intake Total 600 ml 360 ml Output Total 1600 ml 1300 ml Balance -1000 ml -940 ml Intake Oral 600 ml 360 ml Output Urine Total 1600 ml 1300 ml # Voids 1 Laboratory Tests 02/01/19 11:00: Magnesium Level 1.9 02/02/19 06:10: White Blood Count 11.8H, Red Blood Count 4.37L, Hemoglobin 14.6, Hematocrit 42.5 , Mean Corpuscular Volume 97, Mean Corpuscular Hemoglobin 33.3H, Mean Corpuscular Hemoglobin Concent 34.2, Red Cell Distribution Width 11.0L, Platelet Count 222, Mean Platelet Volume 6.9, Neutrophils (%) (Auto) 75.9H, Lymphocytes (%) (Auto) 16.9L, Monocytes (%) (Auto) 4.2, Eosinophils (%) (Auto) 2.2, Basophils (%) (Auto) 0.8, Sodium Level 142, Potassium Level 4.2, Chloride Level 108H, Carbon Dioxide Level 26, Anion Gap 8, Blood Urea Nitrogen 16, Creatinine 0.9, Estimat Glomerular Filtration Rate > 60, Glucose Level 100, Calcium Level 9.1 Height (Feet): 5 Height (Inches): 11.00 Weight (Pounds): 170 Objective GENERAL: Alert, awake, and oriented. LUNGS: Clear bilaterally. HEART: S1 S2 Regular. ABDOMEN: Soft non-tender EXTREMITIES: No cyanosis. No clubbing. No edema. NEUROLOGIC: weakness noted in extremities. Justice Mead Feb 02, 2019 08:30
[2019-02-02] MEDS: Aspirin EC 81mg tab ORAL SCH (09:50)
[2019-02-02] MEDS: BusPIRone 5mg Tab ORAL SCH ×2 (09:51→17:54)
[2019-02-02] MEDS: Levodopa/Carbidopa 25/100 tab ORAL SCH ×3 (09:51→17:56)
[2019-02-02] MEDS: OLANZapine 10mg tab ORAL SCH ×2 (09:51→17:54)
[2019-02-02] MEDS: HYDROcodone/Acetamin 10/325 tab ORAL PRN ×2 (09:53→14:42)
[2019-02-02] MEDS: Heparin 5000 units/ml inj SUBQ SCH (09:56)
[2019-02-02] MEDS: Lacosamide 50mg tablet ORAL SCH (09:58)
--- NOTE | 2019-02-02 11:31 | Pulmonology Progress Note ---
Assessment/Plan Problems: (1) Uncontrolled seizures (2) COPD (chronic obstructive pulmonary disease) (3) Psychiatric disorder (4) Choreoathetosis (5) HTN (hypertension) Assessment/Plan Neuro saw the patient and ordered Vimpat. pt wants to go home now respiratory treatment titrate fio2 to sat of 92% monitor BP symptomatic treatment dvt prophylaxis. Subjective ROS Limited/Unobtainable: No Constitutional: Reports: no symptoms HEENT: Repors: no symptoms Allergies: Coded Allergies: Shrimp (Verified Allergy, Severe, 01/31/19) CHLORPROMAZINE (Verified Allergy, Unknown, 11/13/17) CHLORPROPAMIDE (Unverified Allergy, Unknown, 01/28/18) DIVALPROEX SODIUM (Verified Allergy, Unknown, 04/17/17) FISH CONTAINING PRODUCTS (Verified Allergy, Unknown, 06/20/17) FISH OIL (Unverified Allergy, Unknown, 01/28/18) Uncoded Allergies: craw fish (Allergy, Severe, 01/31/19) shellfish (Allergy, Severe, 01/31/19) Objective Last 24 Hour Vital Signs Date Time Temp Pulse Resp B/P (MAP) Pulse Ox O2 Delivery O2 Flow Rate FiO2 02/02/19 09:51 80 110/69 02/02/19 08:55 Nasal Cannula 2.0 28 02/02/19 08:55 Nasal Cannula 2.0 28 02/02/19 08:00 98.1 80 20 110/69 (83) 96 02/02/19 04:00 97.9 65 20 109/65 (80) 96 02/02/19 04:00 66 02/02/19 00:00 98.0 63 20 101/62 (75) 99 02/02/19 00:00 59 02/01/19 21:00 Room Air 02/01/19 20:00 64 02/01/19 20:00 98.3 66 21 103/64 (77) 100 02/01/19 16:59 98.7 02/01/19 16:00 98.2 75 20 110/60 (77) 98 02/01/19 15:27 69 02/01/19 12:00 98.7 66 18 110/69 (83) 100 02/01/19 11:54 67 Intake and Output 02/01/19 02/02/19 19:00 07:00 Intake Total 600 ml 360 ml Output Total 1600 ml 1300 ml Balance -1000 ml -940 ml Intake Oral 600 ml 360 ml Output Urine Total 1600 ml 1300 ml # Voids 1 General Appearance: WD/WN HEENT: normocephalic, atraumatic Respiratory/Chest: lungs clear, normal breath sounds Cardiovascular: normal peripheral pulses, normal rate Abdomen: normal bowel sounds, soft, non tender Genitourinary: normal external genitalia Extremities: no clubbing Microbiology Date/Time Source Procedure Growth Status 01/30/19 23:50 Nasal Nares MRSA Culture - Final Staphylococcus Aureus - Mrsa Complete 01/30/19 23:50 Rectum VRE Culture - Final NO VANCOMYCIN RESISTANT ENTEROCOCCUS ... Complete Laboratory Tests 02/02/19 06:10: White Blood Count 11.8H, Red Blood Count 4.37L, Hemoglobin 14.6, Hematocrit 42.5 , Mean Corpuscular Volume 97, Mean Corpuscular Hemoglobin 33.3H, Mean Corpuscular Hemoglobin Concent 34.2, Red Cell Distribution Width 11.0L, Platelet Count 222, Mean Platelet Volume 6.9, Neutrophils (%) (Auto) 75.9H, Lymphocytes (%) (Auto) 16.9L, Monocytes (%) (Auto) 4.2, Eosinophils (%) (Auto) 2.2, Basophils (%) (Auto) 0.8, Sodium Level 142, Potassium Level 4.2, Chloride Level 108H, Carbon Dioxide Level 26, Anion Gap 8, Blood Urea Nitrogen 16, Creatinine 0.9, Estimat Glomerular Filtration Rate > 60, Glucose Level 100, Calcium Level 9.1 Current Medications Medications (Trade) Dose Ordered Sig/Sharon Route PRN Reason Start Time Stop Time Status Last Admin Dose Admin Acetaminophen (Tylenol) 650 mg Q4H PRN ORAL fever 01/31/19 07:15 03/02/19 07:14 Acetaminophen/ Hydrocodone Bitart ([place] 10/325) 1 tab Q4H PRN ORAL severe pain 02/01/19 08:24 02/08/19 08:23 02/02/19 09:53 Amlodipine Besylate (Norvasc) 5 mg DAILY ORAL 01/31/19 09:00 03/02/19 08:59 02/02/19 09:51 Aspirin (Ecotrin) 81 mg DAILY ORAL 01/31/19 09:00 03/02/19 08:59 02/02/19 09:50 Baclofen (Lioresal) 10 mg Q8H PRN ORAL Muscle Spasm 01/31/19 07:15 03/02/19 07:14 02/01/19 21:02 Buspirone HCl (Buspar) 10 mg TWICE A DAY ORAL 01/31/19 09:00 03/02/19 08:59 02/02/19 09:51 Carbidopa/Levodopa (Sinemet 25/100) 1 tab THREE TIMES A DAY ORAL 01/31/19 09:00 03/02/19 08:59 02/02/19 09:51 Dextrose (Dextrose 50%) 25 ml Q30M PRN IV Hypoglycemia 01/31/19 07:15 03/02/19 07:14 Dextrose (Dextrose 50%) 25 ml Q30M PRN IV Hypoglycemia 01/31/19 07:15 03/02/19 07:14 Finasteride (Proscar) 5 mg DAILY ORAL 01/31/19 09:00 03/02/19 08:59 02/02/19 09:50 Heparin Sodium (Porcine) (Heparin 5000 units/ml) 5,000 units EVERY 12 HOURS SUBQ 01/31/19 09:00 03/02/19 08:59 02/02/19 09:56 Lacosamide (Vimpat) 100 mg Q12HR ORAL 02/01/19 21:00 03/03/19 20:59 02/02/19 09:58 Levetiracetam (Keppra) 1,000 mg Q12HR ORAL 01/31/19 21:00 03/02/19 20:59 02/01/19 21:01 Lorazepam (Ativan 2mg/ml 1ml) 2 mg Q1H PRN IV seizures 01/31/19 07:15 02/07/19 07:14 Meclizine HCl (Antivert) 25 mg Q8H PRN ORAL Nausea & Vomiting 01/31/19 07:15 03/02/19 07:14 Olanzapine (ZyPREXA) 10 mg BID ORAL 01/31/19 09:00 03/02/19 08:59 02/02/19 09:51 Ondansetron HCl (Zofran) 4 mg Q6H PRN IVP Nausea & Vomiting 01/31/19 07:15 03/02/19 07:14 02/02/19 10:04 Polyethylene Glycol (Miralax) 17 gm HSPRN PRN ORAL Constipation 01/31/19 07:15 03/02/19 07:14 Tiotropium [place] (Spiriva Inhaler) 1 puff DAILY INH 01/31/19 09:00 03/02/19 08:59 Trazodone HCl (Desyrel) 100 mg BEDTIME PRN ORAL Insomnia 01/31/19 07:15 03/02/19 07:14 02/01/19 21:02 Zolpidem Tartrate (Ambien) 5 mg HSPRN PRN ORAL Insomnia 01/31/19 07:15 02/07/19 07:14 Patricio Strong MD Feb 02, 2019 11:31
[2019-02-02] MEDS ORDERED: KEPPRA500 MG ORAL (11:33)
[2019-02-02] MEDS ORDERED: VIMPAT50 MG ORAL (11:33)
[2019-02-02] MEDS ORDERED: Albuterol/Ipratropium 3ml neb HHN PRN (11:45)
[2019-02-02 12:00] VITALS: BP 114/67
--- NOTE | 2019-02-02 12:15 | Progress Note ---
DATE: 02/02/2019 SUBJECTIVE: This is a 43-year-old male patient with seizure disorder, but thought increased mood lability, agitation, worsened by stress of his medical illness. That is why, the attending has requested daily psychiatric consultation. DIAGNOSIS: Schizoaffective, bipolar type, rule out bipolar 2. PLAN: Treat him with Zyprexa 10 twice a day, Ativan 2 mg IV q.4 hours p.r.n. anxiety and agitation, and BuSpar 10 twice a day. Provided him with 20 minutes of cognitive behavioral therapy to help him identify his automatic negative thoughts, help him convert his negative thoughts to more positive thoughts to reduce depression, anxiety, and mood lability. A 20 minutes of cognitive behavioral therapy provided. Chart reviewed and discussed with staff. Seen and assessed at bedside. Wing Cervantes M.D. DR: PABLO JOB#: [id number] CC:
--- NOTE | 2019-02-02 13:00 | NUR ---
NURSE NOTES: Pt stable,no distress presented,no seizure activity presented.
--- NOTE | 2019-02-02 14:18 | General Progress Note ---
Assessment/Plan Problem List: (1) Psychiatric disorder ICD Codes: F99 - Mental disorder, not otherwise specified SNOMED: 23393793, 983286318 (2) Seizure disorder ICD Codes: G40.909 - Epilepsy, unspecified, not intractable, without status epilepticus SNOMED: 329747009 (3) HTN (hypertension) ICD Codes: I10 - Essential (primary) hypertension SNOMED: 08521707 (4) Priapism ICD Codes: N48.30 - Priapism, unspecified SNOMED: 4870841, 786681212 (5) Uncontrolled seizures ICD Codes: R56.9 - Unspecified convulsions SNOMED: 90418860 (6) COPD (chronic obstructive pulmonary disease) ICD Codes: J44.9 - Chronic obstructive pulmonary disease, unspecified SNOMED: 34351364 (7) Decubital ulcer ICD Codes: L89.90 - Pressure ulcer of unspecified site, unspecified stage SNOMED: 789194274 Status: stable, progressing Assessment/Plan: o2 pulm tx seizure control dc if clear Subjective Constitutional: Reports: weakness Allergies: Coded Allergies: Shrimp (Verified Allergy, Severe, 01/31/19) CHLORPROMAZINE (Verified Allergy, Unknown, 11/13/17) CHLORPROPAMIDE (Unverified Allergy, Unknown, 01/28/18) DIVALPROEX SODIUM (Verified Allergy, Unknown, 04/17/17) FISH CONTAINING PRODUCTS (Verified Allergy, Unknown, 06/20/17) FISH OIL (Unverified Allergy, Unknown, 01/28/18) Uncoded Allergies: craw fish (Allergy, Severe, 01/31/19) shellfish (Allergy, Severe, 01/31/19) All Systems: reviewed and negative except above Subjective o2nc calm Objective Last 24 Hour Vital Signs Date Time Temp Pulse Resp B/P (MAP) Pulse Ox O2 Delivery O2 Flow Rate FiO2 02/02/19 12:51 71 16 97 Nasal Cannula 2.0 28 71 16 94 02/02/19 09:51 80 110/69 02/02/19 08:55 Nasal Cannula 2.0 28 02/02/19 08:55 Nasal Cannula 2.0 28 02/02/19 08:00 98.1 80 20 110/69 (83) 96 02/02/19 04:00 97.9 65 20 109/65 (80) 96 02/02/19 04:00 66 02/02/19 00:00 98.0 63 20 101/62 (75) 99 02/02/19 00:00 59 02/01/19 21:00 Room Air 02/01/19 20:00 64 02/01/19 20:00 98.3 66 21 103/64 (77) 100 02/01/19 16:59 98.7 02/01/19 16:00 98.2 75 20 110/60 (77) 98 02/01/19 15:27 69 Intake and Output 02/01/19 02/02/19 19:00 07:00 Intake Total 600 ml 360 ml Output Total 1600 ml 1300 ml Balance -1000 ml -940 ml Intake Oral 600 ml 360 ml Output Urine Total 1600 ml 1300 ml # Voids 1 Laboratory Tests 02/02/19 06:10: White Blood Count 11.8H, Red Blood Count 4.37L, Hemoglobin 14.6, Hematocrit 42.5 , Mean Corpuscular Volume 97, Mean Corpuscular Hemoglobin 33.3H, Mean Corpuscular Hemoglobin Concent 34.2, Red Cell Distribution Width 11.0L, Platelet Count 222, Mean Platelet Volume 6.9, Neutrophils (%) (Auto) 75.9H, Lymphocytes (%) (Auto) 16.9L, Monocytes (%) (Auto) 4.2, Eosinophils (%) (Auto) 2.2, Basophils (%) (Auto) 0.8, Sodium Level 142, Potassium Level 4.2, Chloride Level 108H, Carbon Dioxide Level 26, Anion Gap 8, Blood Urea Nitrogen 16, Creatinine 0.9, Estimat Glomerular Filtration Rate > 60, Glucose Level 100, Calcium Level 9.1 Height (Feet): 5 Height (Inches): 11.00 Weight (Pounds): 170 General Appearance: lethargic EENT: normal ENT inspection Neck: normal alignment Cardiovascular: normal peripheral pulses, normal rate, regular rhythm Respiratory/Chest: chest wall non-tender, lungs clear, normal breath sounds Abdomen: normal bowel sounds, non tender, soft Extremities: normal inspection Edema: no edema noted Arm (L), no edema noted Arm (R), no edema noted Leg (L), no edema noted Leg (R), no edema noted Pedal (L), no edema noted Pedal (R), no edema noted Generalized Neurologic: responsive, motor weakness Skin: normal pigmentation, warm/dry Curtis Gavin DO Feb 02, 2019 14:18
[2019-02-02 16:00] VITALS: BP 114/68
--- NOTE | 2019-02-02 16:39 | NUR ---
DISCHARGE PLANNING DISCHARGE ORDER NOTED Patient has been accepted to; [facility] [address] [place] [address] Bed:110-A Skilled for Nurse to Nurse report [facility] ETA for transportation: 17:30
--- NOTE | 2019-02-02 17:30 | NUR ---
NURSE NOTES: Report called out to [facility],spoke with Marisel Lyles RN,updated on pt's status,v/s,medic activity.IV hep lock to LH removed,skin site intact.
--- NOTE | 2019-02-02 19:05 | NUR ---
NURSE NOTES: Pt discharged and out of the unit accompanied by ambulance personnel,awake alert in no distress ,no seizure avtivity noted.
--- NOTE | 2019-02-04 09:20 | Discharge Summary ---
Discharge Summary Discharge Summary _ DATE OF ADMISSION: 01/31/2019 DATE OF DISCHARGE: 02/02/2019 DISCHARGED BY: Dr. Gavin REASON FOR ADMISSION: 43 years old male with past medical history of seizure disorder, hypertension, COPD, GERD, CVA, was brought to emergency department for evaluation, status post seizure. Patient earlier had multiply seizures, witnessed by nursing staff at the facility. At the time of arrival patient stated , that he felt better. He denied headache. He denied fever and chills. He denied nausea and vomiting. Patient reported increased frequency of seizure activity over the last few weeks . He reported being compliant with medication. Upon evaluation vital signs were stable. Laboratory work-up revealed no leukocytosis, stable hemoglobin and hematocrit. Stable electrolytes and renal parameters. Glucose 104. Serum salicylate, Tylenol, and alcohol were all negative. Urine toxicology screen was negative. EKG revealed sinus rhythm, no acute ischemic changes CT of the head revealed no acute intracranial pathology. In emergency department patient was loaded with Keppra and admitted , given frequency of seizure disorder despite medication compliance. CONSULTANTS: hospitalist/hotel engineer Dr. Strong neurologist Dr. Andrade psychiatrist Dr. Cervantes [facility] COURSE: Patient admitted to telemetry floor. Neurology seen and evaluated patient. Per neurologist, patient had multiply central nervous system problems. He had schizoaffective disorder, complicated by parkinsonian syndrome, probably due to antipsychotic. This was also followed by dyskinesia of the right upper extremity. Patient also had uncontrolled seizure disorder with breakthrough seizures. Keppra dose was uptitrated. Patient was also placed on Vimpat, given less side effects. Seizure precaution maintained. Magnesium level was checked, stable. Patient continued on Keppra and Vimpat, no further seizure activity while in the hospital. DVT prophylaxis provided. Sinemet continued. Supplemental oxygen was on board as needed to keep pulse oximetry above 92%. Bronchodilator therapy provided as needed. Spiriva inhaler continued. No evidence of COPD exacerbation. Blood pressure was closely monitored, remained stable. No need for antihypertensive medication at this time. Psychiatrist followed. Psychiatric medication regimen was optimized. Cognitive behavioral therapy to help him identify his automatic negative thoughts and convert negative thoughts to more positive thoughts to reduce depression, anxiety and mood lability, provided. Patient clinically stabilized and was ready for transfer back to assisted facility for continuation of care. 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 DISCHARGE INSTRUCTIONS: Patient was discharged to the assisted facility. Follow up with medical doctor at the facility. I have been assigned to dictate discharge summary for this account. I was not involved in the patient's management. Ana Hernández NP Feb 04, 2019 09:20
== END 2019-02-02 19:05 | DRG 101 ==
LOC: EDBD 21:58 → EMR 22:26 → EDBEDREQ 01-31 01:02 → 2W 01-31 01:14 → 2E 01-31 05:58
DX: G40.909 Epilepsy, unspecified, not intractable, without status epilepticus (principal); N48.30 Priapism, unspecified; G82.20 Paraplegia, unspecified; G21.19 Other drug induced secondary parkinsonism; T43.505A Adverse effect of unspecified antipsychotics and neuroleptics, initial encounter; J44.9 Chronic obstructive pulmonary disease, unspecified; G25.5 Other chorea; G89.4 Chronic pain syndrome; Z88.8 Allergy status to other drugs, medicaments and biological substances; I10 Essential (primary) hypertension; F25.0 Schizoaffective disorder, bipolar type; G62.9 Polyneuropathy, unspecified; L89.90 Pressure ulcer of unspecified site, unspecified stage
CPT/HCPCS: 36415; 70450; 80048; 80053; 80299; 80307; 80329; 81003; 83735; 85025; 87081; 93005; 94640; 96374; 99285; J2405; J7620

== ENCOUNTER 2019-06-27 09:14 | Emergency (ER) | payer MEDICARE, OTHER ==
[~2019-06-27] VITALS: Ht 177.8 cm; Wt 74.8 kg
[~2019-06-27 09:14] MED LIST changes: +ASPIR 8181 MG ORAL; +ASPIRIN81 M3 PO; +ATIVAN0.5 MG IM; +ATORVASTATIN CA20 MG ORAL; +BACLOFEN10 MG ORAL; +BISACODYL10 M1 RC; +BUSPIRONE HCL5 M2 ORAL; +DIPHENHYDRAMINE25 M1 ORAL; +FERROUS SULFAT325 MG ORAL; +FINASTERIDE5 MG ORAL; +FLEET ENEMA133 ML RECTAL; +HYDROXYZINE HCL50 M1 PO; +IBUPROFEN400 M1 PO; +KEPPRA500 MG ORAL; +LEVETIRACE100 MG/1 M GT; +LEVETIRACE100 MG/1 M PO; +LIPITOR20 MG ORAL; +LORAZEPAM2 MG/1 M1 IM; +MELATONIN3 MG ORAL; +MINIPRESS1 MG PO; +NEURONTIN400 MG ORAL; +NORCO 10-325 T1 EACH ORAL; +NORVASC5 MG ORAL; +OLANZAPINE10 MG ORAL; +OMEPRAZOLE40 M1 ORAL; +PHENERGAN SUPP25 MG PO; +PRAZOSIN HCL2 MG PO; +PROTONIX20 MG ORAL; +PROVENTIL HFA6.7 G1 IH; +QUETIAPINE FUM300 MG ORAL; +SENOKOT8.6 MG PO; +SEROQUEL300 MG ORAL; +SPIRIVA18 MCG INH; +VIMPAT200 MG PO; +VIMPAT50 MG ORAL; +ZOFRAN 4 MG4 MG/2 ML IM
--- NOTE | 2019-06-27 09:26 | NUR ---
ED Nurse Note: Pt came in from home via wheelchair c/o n/v/diarrhea x 1 week. Pt complaining of recurrent seizures over the past week as well. When trying to help pt into bed, pt started shaking uncontrollably, but was able to follow commands. Pt is A+Ox4, denies pain/SOB. Respirations even and unlabored on room air. Pt placed in bed and still shaking. Pt placed on monitor. Vitals stable as documented.
--- NOTE | 2019-06-27 09:29 | Emergency Room Report ---
History of Present Illness General Chief Complaint: To Be Triaged Source: Patient Present Illness HPI Patient is a 41-year-old male who presents to the ER complaining of abdominal pain, nausea, vomiting and diarrhea for 1 week. Patient also has a history of seizure disorder on Vimpat and Trileptal. Patient states that he has had several seizures this week. Patient is wheelchair-bound. He states that Dr. Morrison is supposed to put him in [facility] because he keeps AMA from every other hospital. He is in an assisted living. During history and physical patient had what appeared to be a questionable generalized tonic-clonic seizure. Patient is currently postictal therefore history is limited. Allergies: Coded Allergies: Shrimp (Verified Allergy, Severe, 01/31/19) CHLORPROMAZINE (Verified Allergy, Unknown, 11/13/17) CHLORPROPAMIDE (Unverified Allergy, Unknown, 01/28/18) DIVALPROEX SODIUM (Verified Allergy, Unknown, 04/17/17) FISH CONTAINING PRODUCTS (Verified Allergy, Unknown, 06/20/17) FISH OIL (Unverified Allergy, Unknown, 01/28/18) SHELLFISH DERIVED (Unverified Allergy, Unknown, 06/08/19) Uncoded Allergies: craw fish (Allergy, Severe, 01/31/19) shellfish (Allergy, Severe, 01/31/19) Patient History Limited by: other - seizure Reviewed Nursing Documentation: PMH: Agreed; PSxH: Agreed Nursing Documentation-PMH Hx Cardiac Problems: Yes Hx Hypertension: Yes Hx COPD: Yes Hx Cancer: No Hx Gastrointestinal Problems: No Hx Neurological Problems: Yes Hx Cerebrovascular Accident: Yes - Right hemiplegia Hx Transient Ischemic Attacks: Yes Hx Parkinson's Disease: Yes Hx Seizures: Yes Hx Epilepsy: Yes Hx Peripheral Neuropathy: Yes Hx Spinal Cord Injury: Yes Hx Head Trauma: Yes Hx Memory Loss: Yes Hx Dizziness: Yes Hx Syncope: Yes Hx Headaches: Yes Hx Numbness: Yes - left leg Hx Weakness: Yes Review of Systems All Other Systems: negative except mentioned in HPI Physical Exam Sp02 EP Interpretation: reviewed, normal General Appearance: normal inspection, well appearing, other - Patient has helmet on. ENT: hearing grossly normal, normal pharynx, no angioedema, normal voice Neck: full range of motion, supple/symm/no masses Respiratory: chest non-tender, lungs clear, normal breath sounds, speaking full sentences Cardiovascular #1: regular rate, rhythm, no edema Gastrointestinal: other - Mild diffuse abdominal tenderness with no guarding or rebound. Rectal: deferred Musculoskeletal: non-tender Neurologic: alert, radiology administrator III-XII nml as tested Skin: no rash, warm/dry Medical Decision Making Diagnostic Impression: Primary Impression: Gastroenteritis Additional Impression: Recurrent seizures ER Course Patient had what appeared to be a generalized tonic-clonic seizure in the emergency room. Patient was given an additional dose of his home seizure medications. Patient was moving a lot so we gave him Ativan to obtain a CT. Patient's labs demonstrate no significant acute abnormalities. Patient is now awake and alert and states that he is supposed to be admitted to Dr. Mead . I spoke with Dr. Mead who states that he would like to admit the patient. Laboratory Tests Test 06/27/19 09:37 06/27/19 10:21 White Blood Count 10.2 K/UL (4.8-10.8) Red Blood Count 5.13 M/UL (4.70-6.10) Hemoglobin 17.1 G/DL (14.2-18.0) Hematocrit 48.5 % (42.0-52.0) Mean Corpuscular Volume 95 FL (80-99) Mean Corpuscular Hemoglobin 33.4 PG (27.0-31.0) H Mean Corpuscular Hemoglobin Concent 35.3 G/DL (32.0-36.0) Red Cell Distribution Width 11.2 % (11.6-14.8) L Platelet Count 324 K/UL (150-450) Mean Platelet Volume 7.0 FL (6.5-10.1) Neutrophils (%) (Auto) 70.3 % (45.0-75.0) Lymphocytes (%) (Auto) 16.8 % (20.0-45.0) L Monocytes (%) (Auto) 7.4 % (1.0-10.0) Eosinophils (%) (Auto) 4.5 % (0.0-3.0) H Basophils (%) (Auto) 1.0 % (0.0-2.0) Prothrombin Time 10.5 SEC (9.30-11.50) Prothrombin Time INR 1.0 (0.9-1.1) Activated Partial Thromboplast Time 31 SEC (23-33) Sodium Level 142 MMOL/L (136-145) Potassium Level 3.8 MMOL/L (3.5-5.1) Chloride Level 103 MMOL/L (98-107) Carbon Dioxide Level 22 MMOL/L (21-32) Anion Gap 18 mmol/L (5-15) H Blood Urea Nitrogen 17 mg/dL (7-18) Creatinine 0.9 MG/DL (0.55-1.30) Estimate Glomerular Filtration Rate > 60 mL/min (>60) Glucose Level 78 MG/DL (74-106) Calcium Level 9.7 MG/DL (8.5-10.1) Phosphorus Level 4.1 MG/DL (2.5-4.9) Magnesium Level 1.7 MG/DL (1.8-2.4) L Total Bilirubin 0.7 MG/DL (0.2-1.0) Aspartate Amino Transferase (AST) 20 U/L (15-37) Alanine Aminotransferase (ALT) 22 U/L (12-78) Alkaline Phosphatase 78 U/L (46-116) Total Creatine Kinase 337 U/L (26-308) H Total Protein 7.9 G/DL (6.4-8.2) Albumin 4.2 G/DL (3.4-5.0) Globulin 3.7 g/dL Albumin/Globulin Ratio 1.1 (1.0-2.7) Lipase 65 U/L (73-393) L Urine Color Yellow Urine Appearance Clear Urine pH 7 (4.5-8.0) Urine Specific [place] 1.010 (1.005-1.035) Urine Protein 2+ (NEGATIVE) H Urine Glucose (UA) Negative (NEGATIVE) Urine Ketones 4+ (NEGATIVE) H Urine Blood 1+ (NEGATIVE) H Urine Nitrite Negative (NEGATIVE) Urine Bilirubin Negative (NEGATIVE) Urine Urobilinogen 1 MG/DL (0.0-1.0) H Urine Leukocyte Esterase Negative (NEGATIVE) Urine RBC 0-2 /HPF (0 - 0) H Urine WBC 0 /HPF (0 - 0) Urine Squamous Epithelial Cells Occasional /LPF Urine Bacteria Occasional /HPF (NONE) Urine Opiates Screen Negative (NEGATIVE) Urine Barbiturates Screen Negative (NEGATIVE) Phencyclidine (PCP) Screen Negative (NEGATIVE) Urine Amphetamines Screen Negative (NEGATIVE) Urine Benzodiazepines Screen Negative (NEGATIVE) Urine Cocaine Screen Negative (NEGATIVE) Urine Marijuana (THC) Screen Negative (NEGATIVE) EKG Diagnostic Results EKG Time: 10:16 EP Interpretation: Emilie Manuel Rate: normal Rhythm: NSR ST Segments: no acute changes Rhythm Strip Diag. Results Rhythm Strip Time: 12:25 EP Interpretation: yes Rate: 67 Rhythm: NSR, no PVC's, no ectopy Disposition: ADMITTED INPATIENT Condition: Unknown Barbara Manuel M.D. Jun 27, 2019 09:29
[2019-06-27] MEDS ORDERED: Lacosamide 50mg tablet ORAL SCH (09:30)
[2019-06-27 09:40] VITALS: BP 139/74
[2019-06-27] MEDS ORDERED: LORazepam Inj 2mg/ml 1ml IV ONE (09:45)
--- NOTE | 2019-06-27 09:45 | NUR ---
ED Nurse Note: Called pharmacy and spoke with Veronica who said they will prepare the vimpat and trileptal and they will be ready in 10 minutes.
[2019-06-27 09:54] LABS: EOSINOPHILS % (AUTO) 4.5 % (0.0-3.0); HEMATOCRIT 48.5 % (42.0-52.0); HEMOGLOBIN 17.1 G/DL (14.2-18.0); LYMPHOCYTES % (AUTO) 16.8 % (20.0-45.0); MEAN CORPUSCULAR VOLUME 95 FL (80-99); MONOCYTES % (AUTO) 7.4 % (1.0-10.0); NEUTROPHILS % (AUTO) 70.3 % (45.0-75.0); PLATELET COUNT 324 K/UL (150-450); RED BLOOD COUNT 5.13 M/UL (4.70-6.10); RED CELL DISTRIBUTION WIDTH 11.2 % (11.6-14.8); WHITE BLOOD COUNT 10.2 K/UL (4.8-10.8)
[2019-06-27] MEDS ORDERED: OXcarbazepine 150mg tab ORAL ONE (10:00)
[2019-06-27 10:05] LABS: ANION GAP 18 mmol/L (5-15); BLOOD UREA NITROGEN 17 mg/dL (7-18); CALCIUM 9.7 MG/DL (8.5-10.1); CARBON DIOXIDE 22 MMOL/L (21-32); CHLORIDE 103 MMOL/L (98-107); CREATININE 0.9 MG/DL (0.55-1.30); POTASSIUM 3.8 MMOL/L (3.5-5.1); SODIUM 142 MMOL/L (136-145)
[2019-06-27 10:09] LABS: ALANINE AMINOTRANSFERASE 22 U/L (12-78); ALBUMIN 4.2 G/DL (3.4-5.0); ALBUMIN/GLOBULIN RATIO 1.1 (1.0-2.7); ALKALINE PHOSPHATASE 78 U/L (46-116); ASPARTATE AMINO TRANSFERASE 20 U/L (15-37); BILIRUBIN,TOTAL 0.7 MG/DL (0.2-1.0); CREATINE KINASE 337 U/L (26-308); PHOSPHORUS 4.1 MG/DL (2.5-4.9)
[2019-06-27 10:39] LABS: APPEARANCE,URINE CLEAR; BILIRUBIN, URINE NEGATIVE (NEGATIVE); GLUCOSE, URINE (UA) NEGATIVE (NEGATIVE); KETONES,URINE 4+ (NEGATIVE); LEUKOCYTE ESTERASE ,URINE NEGATIVE (NEGATIVE); NITRITE,URINE NEGATIVE (NEGATIVE); PH,URINE 7 (4.5-8.0); PROTEIN,URINE 2+ (NEGATIVE); UROBILINOGEN,URINE 1 MG/DL (0.0-1.0)
[2019-06-27 10:41] LABS: COLOR,URINE YELLOW
--- NOTE | 2019-06-27 11:07 | Diagnostic Imaging Report ---
INDICATION: Abdominal pain TECHNIQUE: Continuous helical transaxial imaging of the abdomen and pelvis was obtained from the lung bases to the pubic symphysis. No intravenous contrast was administered. Coronal 2-D reformats were also obtained. Automatic Exposure Control was utilized. Total Dose length Product (DLP): 1200.[address] Dose Index Volume (CTDIvol): 20.6 mGy Comparison: none FINDINGS: Lungs: Groundglass opacities noted in the posterior basal aspects of both lungs. Gynecomastia noted.. Liver: There is extensive artifact. No obvious abnormalities of the liver identified. Gallbladder/biliary system: Poorly visualized gallbladder with no gross abnormalities. No obvious biliary ductal dilatation appreciated.. Spleen: Unremarkable Pancreas: There is a nonspecific punctate calcification probably within the head of the pancreas (image 66 transaxial sequence series 2). Kidneys/Bladder: No definite stone or hydronephrosis are identified. The urinary bladder is unremarkable.. Adrenal glands: Unremarkable Bowel: Bowel gas pattern is nonobstructive. The appendix is normal. Aorta/IVC: Unremarkable Peritoneum: There is no free fluid. Bones: Unremarkable IMPRESSION: No acute findings identified. Study is limited due to the nonadministration of IV and oral contrast and extensive artifact. Basilar groundglass opacities nonspecific. Punctate calcification within the head of the pancreas, nonspecific. Parenchymal versus vascular. Note: Evaluation of solid organs is limited on non contrast imaging. The CT scanner at [facility] is accredited by the [employer] and the scans are performed using dose optimization techniques as appropriate to a performed exam including Automatic Exposure control.
--- NOTE | 2019-06-27 13:00 | NUR ---
ED Nurse Note: ED MD plan to discharge. Asked pt if he was ready to leave and pt asked to be amditted to the hospital. Made ED MD aware
[2019-06-27] MEDS ORDERED: Zolpidem 5mg tab ORAL PRN (15:00)
[2019-06-27] MEDS ORDERED: Miralax 17gm pkt ORAL PRN (15:00)
--- NOTE | 2019-06-27 15:14 | NUR ---
ED Nurse Note: Pt refusing to be admitted now. Told pt he had to sign AMA form and he refuses to sign it. Pt states "how can I go against medical advice if I didn't receive any medical advise?" ED MD aware
--- NOTE | 2019-06-27 15:23 | NUR ---
AMA: Pt refused to sign AMA form. Pt says he is going to another hospital. IV and ID removed. SEE AMA FORM.
--- NOTE | 2019-06-27 19:30 | Consultation ---
DATE OF CONSULTATION: 06/27/2019 GASTROENTEROLOGY CONSULTATION CONSULTING PHYSICIAN: Andrei Ma M.D. CHIEF COMPLAINT: Abdominal pain, nausea, vomiting, diarrhea. HISTORY OF PRESENT ILLNESS: This is a very pleasant 44-year-old male with numerous medical problems. He actually is wheelchair-bound. He has history of chronic seizure disorder, history of CHF and CVA. Recently, he was discharged from [facility]. He admitted again here with complaint of nausea, vomiting, abdominal pain, and diarrhea. PAST MEDICAL HISTORY: 1. History of seizure disorder. 2. Hypertension. 3. Hyperlipidemia. 4. COPD. 5. Paraplegia, on wheelchair. 6. Right upper extremity weakness. 7. CVA. ALLERGIES: The patient has multiple allergies including chlorpromazine, fish-containing products. MEDICATIONS: Please see medication reconciliation list. SOCIAL HISTORY: Currently lives in assisted living. No history of tobacco, alcohol, or drug abuse. FAMILY HISTORY: Noncontributory. REVIEW OF SYSTEMS: Limited, the patient is little bit postictal. PHYSICAL EXAMINATION: VITAL SIGNS: Temperature 98, pulse 75, respirations 24, blood pressure is 110/74. HEENT: Normocephalic, atraumatic. Sclerae anicteric. NECK: Supple. No evidence of obvious lymphadenopathy. CARDIOVASCULAR: Regular rhythm. Plus S1, S2. LUNGS: Decreased breath sounds bilaterally based on the supine exam. ABDOMEN: Soft, nontender. No rebound. No guarding. No peritoneal sign. EXTREMITIES: No cyanosis. No clubbing. LABORATORY DATA: White count is 10, hemoglobin 17, hematocrit 48, platelet count is 324. Chem-7, sodium is 142, potassium 3.8, BUN is 17, creatinine 0.9. Liver function grossly normal. CT of the abdomen and pelvis without contrast showed no evidence of any active intra-abdominal process. ASSESSMENT AND PLAN: This is a 44-year-old male with numerous admissions to multiple hospitals with past medical history of seizure disorder, dysphagia, and numerous other medical problems. At this point, another speech evaluation at the bedside to make sure the patient is able to eat. The patient is currently on bowel regimen, we will continue. We will send the stool for culture, stool for C. diff given history of recent diarrhea and recent hospital admission. We will repeat the labs for tomorrow and make further recommendation as we go along. I want to thank, Dr. Curtsi farley for this kind referral. Andrei Ma M.D. DR: EBONY JOB#: [id number] CC: Curtis Gavin D.O.
[2019-06-27] MEDS ORDERED: Heparin 5000 units/ml inj SUBQ SCH (21:00)
[2019-06-28] MEDS ORDERED: Levodopa/Carbidopa 25/100 tab ORAL SCH (09:00)
== END 2019-06-27 17:24 | disposition left against medical advice (07) ==
LOC: EMR 09:30
DX: K52.9 Noninfective gastroenteritis and colitis, unspecified (principal); G40.909 Epilepsy, unspecified, not intractable, without status epilepticus; G82.20 Paraplegia, unspecified; I10 Essential (primary) hypertension; J44.9 Chronic obstructive pulmonary disease, unspecified; G20 Parkinson's disease; G62.9 Polyneuropathy, unspecified; I69.951 Hemiplegia and hemiparesis following unspecified cerebrovascular disease affecting right dominant side; Z86.69 Personal history of other diseases of the nervous system and sense organs; Z99.3 Dependence on wheelchair; Z91.013 Allergy to seafood; Z88.8 Allergy status to other drugs, medicaments and biological substances
CPT/HCPCS: 36415; 74176; 80053; 80307; 81003; 82550; 83690; 83735; 84100; 85025; 85610; 85730; 93005; 96361; 96374; 96375; 99284; J2405; J7030

== ENCOUNTER 2019-10-10 07:51 | Emergency (ER) | payer MEDICARE, OTHER ==
[~2019-10-10] VITALS: Ht 183.5 cm; Wt 72.6 kg
[2019-10-10 08:08] VITALS: BP 122/83
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
[2019-10-10] MEDS ORDERED: Ketorolac 30mg Inj IM ONE (08:30)
[2019-10-10] MEDS ORDERED: [UNRECOGNIZED DRUG - SUPPLY] (08:39)
[2019-10-10] MEDS ORDERED: ROBAXIN-500MG ORAL (08:39)
[2019-10-10] MEDS ORDERED: TYLENOL325 MG ORAL (08:39)
[2019-10-10 08:50] VITALS: BP 122/83
--- NOTE | 2019-10-10 08:52 | NUR ---
ED Nurse Note: Pt cleared by health care Provider for discharge. DC instructions/prescription was given and explained to pt and verbalized understanding of teachings. All medical deviecs such as ID band removed. Pt is AAO x4, ambulatory and left with all personal belongings.
== END 2019-10-10 08:53 | disposition home or self-care (01) ==
LOC: EMR 08:00
DX: U07.1 COVID-19 (principal); M54.2 Cervicalgia; G89.29 Other chronic pain; R42 Dizziness and giddiness; S00.83XA Contusion of other part of head, initial encounter; G40.909 Epilepsy, unspecified, not intractable, without status epilepticus; Z98.1 Arthrodesis status; G81.91 Hemiplegia, unspecified affecting right dominant side; J44.9 Chronic obstructive pulmonary disease, unspecified; G20 Parkinson's disease; K21.9 Gastro-esophageal reflux disease without esophagitis; I10 Essential (primary) hypertension; Z88.8 Allergy status to other drugs, medicaments and biological substances; Z91.013 Allergy to seafood; F17.200 Nicotine dependence, unspecified, uncomplicated; S80.812A Abrasion, left lower leg, initial encounter; X58.XXXA Exposure to other specified factors, initial encounter; Y92.9 Unspecified place or not applicable; S00.81XA Abrasion of other part of head, initial encounter; Z59.0 Homelessness
CPT/HCPCS: 96372; 99283; J1885